=== PATIENT | female | born 1935 ===

== ENCOUNTER 2017-04-21 11:13 | Day surgery (SDC) | payer MEDICARE, OTHER ==
[2017-04-20 09:28] VITALS: BMI 28.9
[2017-04-21] MEDS ORDERED: Iodixanol 320 MG/ML 200 ML BOTTLE IV ONE (12:31)
[2017-04-21] MEDS ORDERED: Iodixanol 320 MG/ML 100 ML BOTTLE IV ONE (12:31)
[2017-04-21] MEDS ORDERED: Propofol 10 mg/ml Inj (20 ML) ONE (12:33)
[2017-04-21] MEDS ORDERED: Lidocaine 2% Inj (20ml) ONE (12:43)
[2017-04-21] MEDS ORDERED: Midazolam 2 MG/2 ML VIAL ONE (13:26)
--- NOTE | 2017-04-21 14:08 | PCM.SURG1 ---
Surgeon's Initial Post Op Note - Surgeon's Notes Surgeon: kun Platform Engineer: 0 Type of Anesthesia: IV Sedation Anesthesia Administered By: anna Pre-Operative Diagnosis: rest pain left foot Operative Findings: 90% stenosis at left knee joint on left runoff via PT and peroneal, AT occluded on left. 90% stenosis right knee joont ,. major runoff via peroneal. pt diseased at origin on right. perclose right groin Post-Operative Diagnosis: same Operation Performed: aortofemoral angiogram via right groin with seklective catherization of left femoral artery. pathway atherectomy of popliteal artery. balloon angioplasty of popliteal using 3.5 and 4 mm dcb Specimen/Specimens Removed: 0 Estimated Blood Loss: EBL {In ML}: 15 Blood Products Given: N/A Drains Used: No Drains Post-Op Condition: Good Date of Surgery/Procedure: 04/21/17 Time of Surgery/Procedure: 14:09
[2017-04-21 17:23] VITALS: BP 143/60; PULSE 61; RESP 19; TEMP 97.5; O2SAT 100
--- NOTE | 2017-04-22 04:31 | OP ---
PROCEDURE DATE: 04/21/2017 PREOPERATIVE DIAGNOSIS: Rest pain in the foot. PROCEDURE CARRIED OUT: Aortofemoral angiogram via right groin with selective catheterization of left femoral artery, pathway atherectomy of the left popliteal artery and balloon angioplasty using 4-mm drug-coated balloon. SURGEON: Erasmo Mallory Jr., MD MANAGER MARKET RESEARCH: None. ANESTHESIOLOGIST: Mr. Craig and ____. TYPE OF ANESTHESIA: Local with sedation. FINDINGS: The patient is an 81-year-old woman with increasing pain in the legs. OPERATIVE FINDINGS: The aorta, renal arteries, common iliac arteries, external iliac arteries, and common femoral arteries were free of significant occlusive disease. The profunda femoris and superficial femoral arteries were widely patent. The proximal portion of the superficial femoral arteries down to the knees were widely patent. On the right side, there are 2 areas of stenosis below Chandrakant's canal behind the knee including critical aortic stenosis behind the knee. Subsequent to this, the posterior tibial artery was severely diseased and it is most proximal portion of the peroneal artery appeared to be the major vessel into the foot. Detailed picture of the foot were not taken on the right side. On the left side, there was a high-grade 90 plus percent stenosis of the popliteal artery just above the knee joint and below this, there was atherosclerotic changes. The anterior tibial artery was occluded soon after its origin. The posterior tibial continued all the way to the foot and peroneal artery dissipated in its distal third. After the films were taken with overlapping views extending into the pelvis, a stiff-angled guidewire was advanced through the aortic bifurcation and 7-Nepali sheath position in the distal portion of the superficial femoral artery. Using road-mapping techniques with the use of an 0.14 wire, the lesion was crossed, this was subsequently exchanged for a bare-metal wire. After the patient was heparinized, a pathway atherectomy device was then used to create a bigger channel. After this has been done on the dilator with 3.5 and then subsequently with a 4 mm drug-coated balloon with excellent cosmetic results. Completion of the films revealed patency of the posterior tibial to the ankle and good flow throughout the segment. There was no change in the findings of the peroneal or of the anterior tibial artery. Subsequently, the catheter was removed from the groin and the procedure was terminated after deployment of Perclose device on the right side. So, the operation carried out: 1. Aortofemoral angiogram with selective catheterization of left femoral artery. 2. Pathway atherectomy of the left popliteal artery and then balloon angioplasty using 4 mm drug-coated balloon of the popliteal artery. Erasmo Mallory Jr., MD cc: Celestino Arrieta DO
== END 2017-04-21 17:15 | disposition home or self-care (01) ==
LOC: C.CATHLAB 11:13 → C.SPRAD 11:13 → C.CATHLAB 17:15
PROVIDERS: ATTEND Surgery Vascular Surgery
DX: I77.1 Stricture of artery (principal); I70.222 Atherosclerosis of native arteries of extremities with rest pain, left leg
CPT/HCPCS: 36247; 37227; 75625; 75716; 75774; 94770; C1724; C1760; C1766; C1769; C1884; C1887; C1894; C2623; J1644; J2250; J2704; J3010; Q9966; Q9967

== ENCOUNTER 2017-05-27 06:11 | Day surgery (SDC) | payer MEDICARE, OTHER ==
[2017-04-20 09:22] VITALS: BMI 28.9
[2017-05-27] MEDS ORDERED: Propofol 10 mg/ml Inj (20 ML) ONE ×2 (09:06→10:19)
[2017-05-27] MEDS ORDERED: Midazolam 2 MG/2 ML VIAL ONE ×2 (09:12→09:40)
[2017-05-27] MEDS ORDERED: Iodixanol 320 MG/ML 200 ML BOTTLE IV ONE (09:23)
[2017-05-27] MEDS ORDERED: Iodixanol 320 MG/ML 100 ML BOTTLE IV ONE ×2 (09:24→10:41)
[2017-05-27] MEDS ORDERED: Lidocaine 2% Inj (20ml) ONE (09:27)
[2017-05-27] MEDS ORDERED: Nitroglycerin 50mg in D5W 50 MG/250 ML BOTTLE IV ONE (10:37)
--- NOTE | 2017-05-27 10:57 | PCM.SURG1 ---
Surgeon's Initial Post Op Note - Surgeon's Notes Surgeon: Mohamud Selector Packer: Alexander PGY1 Type of Anesthesia: IV Sedation Pre-Operative Diagnosis: Peripheral Artery Disease Operative Findings: see operative report Post-Operative Diagnosis: Peripheral Artery Disease Operation Performed: Aortoillial Angiogram with bilateral run-off, selective catheterization of Right femoral artery, pathway arthrectomy of distal SFA/ proximal popliteal artery, pathway arthrectomy and angioplasty of distal peroneal artery Specimen/Specimens Removed: N/A Estimated Blood Loss: EBL {In ML}: 20 Blood Products Given: N/A Drains Used: No Drains Post-Op Condition: Good Date of Surgery/Procedure: 05/27/17 Time of Surgery/Procedure: 10:55
[2017-05-27] MEDS ORDERED: Oxycodone/Acetaminophen 5/325 mg Tab PO PRN (10:58)
[2017-05-27] MEDS ORDERED: Sodium Chloride 0.9% 1,000 ML IV ONE (12:08)
[2017-05-27 13:49] VITALS: BP 144/46; PULSE 61; RESP 16; TEMP 97.3; O2SAT 97
--- NOTE | 2017-05-28 04:57 | VAS ---
DATE: 05/27/2017 PREOPERATIVE DIAGNOSIS: Claudication, right leg. POSTOPERATIVE DIAGNOSIS: Claudication, right leg. PROCEDURE CARRIED OUT: Aortofemoral angiogram via left groin with selective catheterization of right femoral artery, pathway atherectomy of the right popliteal artery and peroneal artery with balloon angioplasty including use of a drug-coated balloon on the popliteal artery. SURGEON: Erasmo Mallory Jr., MD SUSTAINABILITY COMMUNICATOR: None. ANESTHESIOLOGIST: Dr. Craig. ANESTHESIA: Local sedation. INDICATIONS: The patient is an elderly women with claudication in right leg, previously had a left leg treated with atherectomy with an angioplasty. OPERATIVE FINDINGS: The aorta, renal arteries, common internal, external iliac arteries were widely patent without any occlusive disease. Both common femoral, superficial femoral, profunda femoris in the proximal portions of the superficial femoral arteries were widely patent. Just above the knee joint, the patient had a high-grade stenosis of 90% in the popliteal artery, on the right side. On the left side, which appears and we treated there was excellent flow and that area showed no evidence residual or recurrent stenosis. Below this on the left side, there was good flow into the foot via the tibioperoneal trunk and main vessels. We did not obtain views of the foot on the left side. On the right side, the peroneal artery was the main vessel into the foot. The posterior tibial artery was diseased at its origin. The anterior tibial artery occluded soon after its origin and now reconstituted distally. On the right leg, which was the affected leg, the peroneal artery as they said was the main vessel into the foot, the posterior tibial artery reconstituted distally and it was present in the foot. Subsequent to the performance of the diagnostic arteriogram, a stiff-angled Glidewire was advanced over the aortic bifurcation and a 7-Azeri sheath positioned in the distal portion of the superficial femoral artery crossed, subsequently exchanged for a heparin was given, the atherectomy device was used to place on it. Distal SFA popliteal lesion and then we also treated with placing down the tibial peroneal trunk. This initially resulted is some spasm in the vessels which we treated with a 2.5 mm balloon and then the more proximal lesion which was a significant lesion that was treated with a 4 and then a 5 mm drug-coated balloon. The final cosmetic results were excellent with good flow and brisk flow into the foot. The peroneal was the major vessel and widely open. OPERATION CARRIED OUT: 1. Aortofemoral angiogram with selective catheterization of the right femoral artery. 2. Pathway atherectomy of the distal SFA proximal popliteal artery and pathway atherectomy and balloon angioplasty of the peroneal artery. A Perclose device was then deployed in the left groin. Erasmo Mallory Jr., MD
== END 2017-05-27 13:46 | disposition home or self-care (01) ==
LOC: C.SPRAD 06:11
PROVIDERS: ATTEND Surgery Vascular Surgery
DX: I73.9 Peripheral vascular disease, unspecified (principal)
CPT/HCPCS: 36247; 37225; 37229; 75625; 75716; 75774; 94770; C1724; C1725; C1760; C1766; C1769; C1887; C2623; J1644; J2250; J2704; J3010; J7040; Q9966; Q9967

== ENCOUNTER 2017-10-06 13:15 | Inpatient (IN) | payer MEDICARE, OTHER ==
[2017-10-06 14:34] VITALS: BMI 28.3
--- NOTE | 2017-10-06 16:42 | C.PDOC ---
History Of Present Illness 82-year-old female, PMHx includes Peripheral vascular disease and hypertension, presents to the emergency department accompanied by pluck trimmer with complaints of pain to right foot worsening x1 week. Patient being treated by art librarian Dr Banuelos for toe infection and foot pain, and was placed on Augmentin by art librarian. Patient was seen in office and pain has increased resulting in her being sent to the ED for evaluation. Patient is pending CT in one week. Has a Hx of stents in B/L extremities. Cj numbness/weakness, nausea/vomiting, fevers, chills, chest pain or shortness of breath. No other complaints at this time. Time Seen by Provider: 10/06/17 15:54 Chief Complaint (Nursing): Lower Extremity Problem/Injury History Per: Patient History/Exam Limitations: no limitations Onset/Duration Of Symptoms: Days Current Symptoms Are (Timing): Still Present Past Medical History Reviewed: Historical Data, Nursing Documentation, Vital Signs Vital Signs: Last Vital Signs Temp 97.9 F 10/06/17 18:10 Pulse 81 10/06/17 18:10 Resp 18 10/06/17 18:10 BP 145/77 10/06/17 18:10 Pulse Ox 98 10/06/17 18:42 - Medical History PMH: Arthritis, COPD (WORK RELATED ENVIRONMENT EXPOSURE), Fractures, Gall Bladder Disease, HTN, Osteoporosis, Peripheral Edema Denies: Chronic Kidney Disease Surgical History: Cholecystectomy, Endoscopy Family History: States: No Known Family Hx - Social History Hx Alcohol Use: No Hx Substance Use: No - Immunization History Hx Tetanus Toxoid Vaccination: No Hx Influenza Vaccination: No Hx Pneumococcal Vaccination: No Review Of Systems Constitutional: Negative for: Fever, Chills Cardiovascular: Negative for: Chest Pain Respiratory: Negative for: Shortness of Breath Gastrointestinal: Negative for: Vomiting Musculoskeletal: Positive for: Foot Pain (right) Neurological: Negative for: Weakness, Numbness Physical Exam - Physical Exam Appears: Non-toxic, No Acute Distress Skin: Dry, No Rash Head: Atraumatic, Normacephalic Eye(s): bilateral: Normal Inspection, PERRL Nose: Normal Oral Mucosa: Moist Lips: Normal Appearing Neck: Normal ROM Chest: Symmetrical Cardiovascular: Rhythm Regular, No Murmur Respiratory: Normal Breath Sounds, No Accessory Muscle Use Gastrointestinal/Abdominal: Soft, No Tenderness Extremity: Tenderness, Pedal Edema, No Calf Tenderness, No Deformity, Other (LLE : no pedal edema, cool to touch, pale. RLE: erythematous, cool to touch. Tender w/ abrasion to medial aspect of second digit. Mild edema to dorsum of right foot ) Pulses: Left Dorsalis Pedis: Decreased (minimally palpable), Right Dorsalis Pedis: Decreased (minimally palpable) Neurological/Psych: Oriented x3, Normal Speech, Normal Cognition ED Course And Treatment - Laboratory Results Result Diagrams: 10/06/17 17:01 10/06/17 17:01 O2 Sat by Pulse Oximetry: 98 (RA) Pulse Ox Interpretation: Normal Medical Decision Making Medical Decision Making: Plan: * CT Angio * CMP * CBC, PTT, PT * Augmentin, Heparin, Tylenol * Reassess and Disposition pt sent to ED by Dr Kasper (art librarian) for ischemic foot and consult from Dr Mallory. Dr Mallory called and will come see patient in the ED, labs ordered. 500 pm pt seen by Dr Mallory. request cta abd ileofemoral and heparin drip, ordered as requested. [address] Barrow, will admot to his service. Disposition Discussed With .: Reji Barrow Doctor Will See Patient In The: Hospital - Disposition Disposition: HOSPITALIZED Disposition Time: 17:17 Condition: SERIOUS - Clinical Impression Clinical Impression: Ischemia of right lower extremity, Infected abrasion of toe of right foot - Scribe Statement The provider has reviewed the documentation as recorded by the Scribe (Lisa Mccormack) All medical record entries made by the Scribe were at my direction and personally dictated by me. I have reviewed the chart and agree that the record accurately reflects my personal performance of the history, physical exam, medical decision making, and the department course for this patient. I have also personally directed, reviewed, and agree with the discharge instructions and disposition.
[2017-10-06] MEDS ORDERED: Heparin25000 units/250ml 1/2NS 25,000 UNITS/250 ML BAG IV PRN (16:55)
[2017-10-06 17:06] LABS: BASO # 0.1 K/uL (0.0-0.2); BASO % 0.7 % (0.0-2.0); EOS # 0.2 K/uL (0.0-0.7); EOS % 1.3 % (0.0-4.0); HEMOGLOBIN 12.1 g/dL (11.0-16.0); LYMPH # 1.6 K/uL (1.0-4.3); MEAN CELL VOLUME 93.6 fL (81.0-99.0); MEAN CORPUSCULAR HEMOGLOBIN 31.5 pg (27.0-31.0); MEAN CORPUSCULAR HGB CONC 33.6 g/dL (33.0-37.0); MEAN PLATELET VOLUME 9.2 fL (7.2-11.7); MONO # 0.8 K/uL (0.0-0.8); MONO % 6.8 % (0.0-10.0); NEUT # 9.5 K/uL (1.8-7.0); NEUT % 78.2 % (50.0-75.0); NRBC % 0.1 % (0.0-2.0); RBC 3.84 Mil/uL (3.80-5.20); RED CELL DISTRIBUTION WIDTH 14.3 % (11.5-14.5)
[2017-10-06 17:13] LABS: WHITE BLOOD COUNT 12.1 K/uL (4.8-10.8)
[2017-10-06] MEDS ORDERED: Amoxicillin-Clav 875-125 mg Tab PO STA (17:14)
[2017-10-06 17:20] LABS: INR 1.1; PROTHROMBIN TIME 12.5 SECONDS (9.7-12.2)
[2017-10-06 17:21] LABS: ALB/GLOB RATIO 1.2 (1.0-2.1); ALBUMIN 3.5 g/dL (3.5-5.0); ALT/SGPT 33 U/L (9-52); AST/SGOT 18 U/L (14-36); BLOOD UREA NITROGEN 14 mg/dL (7-17); CALCIUM 8.6 mg/dl (8.6-10.4); GFR AFRICAN-AMERICAN > 60; GFR NON-AFRICAN AMERICAN > 60
[2017-10-06] MEDS ORDERED: Amoxicillin-Clav 875-125 mg Tab PO ONE (17:50)
--- NOTE | 2017-10-06 18:17 | CP.PCM.HP ---
<Len Aldana - Last Filed: 10/06/17 19:36> History of Present Illness - History of Present Illness History of Present Illness: PGY-1 H&P for Dr. Barrow CC: Right leg pain This is an 82 year old female with PMHx PVD, HTN, arthritis, Raynoud's phenomenon who presents complaining of right leg pain. Patient sent by her setter helper Dr. Tye Kasper for evaluation of right first and second toe infection and right popliteal occlusion. Patient states that the leg pain has been ongoing for one week. Pain is described as severe, non radiating. It is worsened with walking and relieved with rest. Patient received antibiotics from her setter helper and has been taking it for about 4 days. PMHx: PVD, HTN, arthritis, Raynaud's phenomenon PSHx: On 04/21/17, arthrectomy of left popliteal artery with balloon angioplasty. On 05/27/17, had arthrectomy of right distal SFA/proximal popliteal artery and angioplasty of distal peroneal artery. Tubal ligation, cholecystectomy, Soft tissue mass excision from back, cataract surgery Allergies: NKDA Social: Denies smoking, alcohol, drug use. PMD: Dr. Vizcaino Vascular surgeon: Dr. Mallory Wildlife Biology Internship: Dr. Kasper Home meds: Ventolin BID, ASA 81, Plavix 75, Enalapril 20 mg PO daily, Lovaza 2 tabs daily, Augmentin 875/125 BID Present on Admission - Present on Admission Any Indicators Present on Admission: No Review of Systems - Constitutional Constitutional: absent: Chills, Fever - EENT Eyes: absent: Change in Vision Ears: absent: Decreased Hearing Nose/Mouth/Throat: absent: Nasal Congestion - Cardiovascular Cardiovascular: absent: Chest Pain - Respiratory Respiratory: absent: Dyspnea - Gastrointestinal Gastrointestinal: Constipation. absent: Abdominal Pain, Diarrhea, Nausea, Vomiting - Genitourinary Genitourinary: absent: Dysuria - Musculoskeletal Musculoskeletal: Other (right leg pain) - Integumentary Integumentary: Wounds (right foot) - Neurological Neurological: Dizziness (intermittent) - Psychiatric Psychiatric: Change in Appetite (appetite will vary) - Endocrine Endocrine: absent: Palpitations Past Patient History - Past Medical History & Family History Past Medical History?: Yes - Past Social History Smoking Status: Never Smoked - CARDIAC Hx Hypertension: Yes Hx Peripheral Edema: Yes - PULMONARY Hx Chronic Obstructive Pulmonary Disease (COPD): Yes (WORK RELATED ENVIRONMENT EXPOSURE) - NEUROLOGICAL Hx Neurological Disorder: Yes HX Cerebrovascular Accident: Yes Other/Comment: " NEURIOLOGIST STATES SHE HAD 3 MINI STROKES-" SOME LEFT SIDED HEAVYNESS AND FEELINGS OF COLD AT TIMES. USES CANE TO AMBULATE. - HEENT Hx HEENT Problems: Yes Hx Cataracts: Yes (BILAT.) - RENAL Hx Chronic Kidney Disease: No - ENDOCRINE/METABOLIC Hx Endocrine Disorders: No - HEMATOLOGICAL/ONCOLOGICAL Hx Blood Disorders: No - INTEGUMENTARY Hx Dermatological Problems: Yes Other/Comment: HX: MASS UPPER BACK-NO CANCER - MUSCULOSKELETAL/RHEUMATOLOGICAL Hx Arthritis: Yes Hx Fractures: Yes Hx Osteoporosis: Yes - GASTROINTESTINAL Hx Gall Bladder Disease: Yes - GENITOURINARY/GYNECOLOGICAL Hx Genitourinary Disorders: No - PSYCHIATRIC Hx Substance Use: No - SURGICAL HISTORY Hx Cholecystectomy: Yes - ANESTHESIA Hx Anesthesia: Yes Hx Anesthesia Reactions: No Hx Malignant Hyperthermia: No Meds Allergies/Adverse Reactions: Allergies Allergy/AdvReac Type Severity Reaction Status Date / Time No Known Allergies Allergy Verified 10/06/17 14:32 Physical Exam - Constitutional Appears: No Acute Distress - Head Exam Head Exam: ATRAUMATIC, NORMOCEPHALIC - Eye Exam Eye Exam: EOMI, PERRL - ENT Exam ENT Exam: Mucous Membranes Moist - Respiratory Exam Respiratory Exam: Clear to Auscultation Bilateral, NORMAL BREATHING PATTERN. absent: Rales, Rhonchi, Wheezes - Cardiovascular Exam Cardiovascular Exam: REGULAR RHYTHM, +S1, +S2 - GI/Abdominal Exam GI & Abdominal Exam: Distended, Normal Bowel Sounds, Soft. absent: Firm, Guarding, Tenderness - Extremities Exam Additional comments: Pedal edema on right leg. Tenderness to palpation on right leg. Difficult to feel pedal pulses bilaterally. Wound on right hallux in the lateral aspect. Wound on right 2nd toe medial aspect. Feet cool to the touch bilaterally - Neurological Exam Neurological exam: Alert, CN II-XII Intact, Oriented x3 - Psychiatric Exam Psychiatric exam: Normal Affect, Normal Mood - Skin Skin Exam: Dry Results - Vital Signs Recent Vital Signs: Last Vital Signs Temp 97.9 F 10/06/17 18:10 Pulse 81 10/06/17 18:10 Resp 18 10/06/17 18:10 BP 145/77 10/06/17 18:10 Pulse Ox 99 10/06/17 18:10 - Labs Result Diagrams: 10/06/17 17:01 10/06/17 17:01 Labs: Laboratory Results - last 24 hr 10/06/17 10/06/17 10/06/17 17:01 17:01 17:01 WBC 12.1 H D RBC 3.84 Hgb 12.1 Hct 36.0 MCV 93.6 MCH 31.5 H MCHC 33.6 RDW 14.3 Plt Count 167 MPV 9.2 Neut % (Auto) 78.2 H Lymph % (Auto) 13.0 L Henderson % (Auto) 6.8 Eos % (Auto) 1.3 Baso % (Auto) 0.7 Neut # (Auto) 9.5 H Lymph # (Auto) 1.6 Henderson # (Auto) 0.8 Eos # (Auto) 0.2 Baso # (Auto) 0.1 PT 12.5 H INR 1.1 APTT 33 Sodium 136 Potassium 3.7 Chloride 99 Carbon Dioxide 28 Anion Gap 12 BUN 14 Creatinine 0.5 L Est GFR ( Amer) > 60 Est GFR (Non-Af Amer) > 60 Random Glucose 108 H Calcium 8.6 Total Bilirubin 0.5 AST 18 ALT 33 Alkaline Phosphatase 71 Total Protein 6.5 Albumin 3.5 Globulin 3.0 Albumin/Globulin Ratio 1.2 Assessment & Plan - Assessment and Plan (Free Text) Plan: Right foot wounds with Hx of PVD Vascular surgery consult with Dr. Mallory, help appreciated Since patient sent in by Dr. Kasper who does not come to this hospital, we have consulted his colleague Dr. Macias, help appreciated Heparin drip f/u CTA with femoral runoff NPO after midnight for possible intervention tomorrow Resumed home ASA 81 mg PO daily Resumed home Plavix 75 mg PO daily History of HTN Resumed home Enalapril 20 mg PO daily Prophylactic Measure NPO after midnight Heparin drip Protonix 40 mg PO daily Resumed home Ventsebastián and Lovaza Olivier Aldana PGY-1 <Reji Barrow H - Last Filed: 10/07/17 07:16> Results - Vital Signs Recent Vital Signs: Last Vital Signs Temp 98.3 F 10/07/17 00:00 Pulse 87 10/07/17 06:00 Resp 20 10/07/17 06:00 BP 137/71 10/07/17 06:00 Pulse Ox 97 10/07/17 06:00 - Labs Result Diagrams: 10/07/17 06:25 10/06/17 17:01 Labs: Laboratory Results - last 24 hr 10/06/17 10/06/17 10/06/17 17:01 17:01 17:01 WBC 12.1 H D RBC 3.84 Hgb 12.1 Hct 36.0 MCV 93.6 MCH 31.5 H MCHC 33.6 RDW 14.3 Plt Count 167 MPV 9.2 Neut % (Auto) 78.2 H Lymph % (Auto) 13.0 L Henderson % (Auto) 6.8 Eos % (Auto) 1.3 Baso % (Auto) 0.7 Neut # (Auto) 9.5 H Lymph # (Auto) 1.6 Henderson # (Auto) 0.8 Eos # (Auto) 0.2 Baso # (Auto) 0.1 PT 12.5 H INR 1.1 APTT 33 Sodium 136 Potassium 3.7 Chloride 99 Carbon Dioxide 28 Anion Gap 12 BUN 14 Creatinine 0.5 L Est GFR ( Amer) > 60 Est GFR (Non-Af Amer) > 60 Random Glucose 108 H Calcium 8.6 Total Bilirubin 0.5 AST 18 ALT 33 Alkaline Phosphatase 71 Total Protein 6.5 Albumin 3.5 Globulin 3.0 Albumin/Globulin Ratio 1.2 10/07/17 10/07/17 01:41 06:25 WBC 10.6 RBC 4.04 Hgb 13.1 Hct 37.9 MCV 93.8 MCH 32.3 H MCHC 34.5 RDW 14.6 H Plt Count 132 MPV 9.2 Neut % (Auto) 77.6 H Lymph % (Auto) 13.8 L Henderson % (Auto) 5.4 Eos % (Auto) 2.5 Baso % (Auto) 0.7 Neut # (Auto) 8.2 H Lymph # (Auto) 1.5 Henderson # (Auto) 0.6 Eos # (Auto) 0.3 Baso # (Auto) 0.1 PT INR APTT 187 H* D Sodium Potassium Chloride Carbon Dioxide Anion Gap BUN Creatinine Est GFR ( Amer) Est GFR (Non-Af Amer) Random Glucose Calcium Total Bilirubin AST ALT Alkaline Phosphatase Total Protein Albumin Globulin Albumin/Globulin Ratio Attending/Attestation - Attestation I have personally seen and examined this patient.: Yes I have fully participated in the care of the patient.: Yes I have reviewed all pertinent clinical information: Yes Notes (Text): 10/07/17 07:16 Medical attending: Patient was seen and examined by me, agree with the above note by medical editor. The patient was with the family member at bedside. The patient was okay with this. The family member helped with translation. He explained to us that this has been going on for quite some time now. In the past the patient did undergo intervention of the popliteal area the past. She was evaluated by her setter helper today and sent in. On exam, as described above in the resident note the patient does have difficult to palpate pulses. I was not able to readily find the portable Doppler in the emergency room. The foot felt cool however she was able to move her toes. She had decreased sensation she said Inspection of the feet shows that the first toe and the second toe in between that there are open wounds there. These are not deep wounds look sick the skin is She is able to walk, however the pain in the right foot is severe with walking. She's been started on a heparin drip. Is a CAT scan of the lower extremities with IV runoff that is ready been ordered.
[2017-10-06] MEDS ORDERED: Oxycodone/Acetaminophen 5/325 mg Tab PO PRN (18:22)
[2017-10-06] MEDS ORDERED: Iodixanol 320 mg/ml 150 ml Bottle IV ONE (18:26)
--- NOTE | 2017-10-06 18:35 | CP.PCM.CON ---
History of Present Illness - History of Present Illness History of Present Illness: Vascular surgery consult note for Dr. Debbie Marin, PGY-1 Pt S & E at bedside- son at bedside with history- pt mostly English speaking. 82F w/PMH sig for PVD consulted for Right hallux toe infection and Right popliteal occlusion. Reports some pain in Right foot/toe x 1 week. Pain is severe, non radiating, better with rest, worsened by pressure/walking. Pain moderately helped by Ultram at home. Pt seen recently by podiatry with recommendations for Abx- pt has been taking x 4 days; recommended hospital eval and vascular consult for ischemic right foot. Denies F & C, numbness or tingling- other complaints. In ED Leukocytosis 12.1, afebrile, imaging ordered. PMH: PVD, arthritis, Raynaud's disease PSH: Tubal ligation, cholecystectomy, popliteal bypass B/L w/grafting, Soft tissue mass excision from back, cataract sx All: NKDA SH: Deneis ETOH, tobacco or illicit drug use Outpt manager intern: Dr. Kasper Review of Systems - Review of Systems All systems: reviewed and no additional remarkable complaints except - Constitutional Constitutional: absent: Chills, Fever - EENT Eyes: absent: Change in Vision Nose/Mouth/Throat: absent: Sore Throat - Cardiovascular Cardiovascular: absent: Chest Pain - Respiratory Respiratory: absent: Cough - Gastrointestinal Gastrointestinal: absent: Abdominal Pain, Nausea, Vomiting - Genitourinary Genitourinary: absent: Change in Urinary Stream, Difficulty Urinating - Musculoskeletal Musculoskeletal: absent: Numbness, Radiating Pain into Limb, Tingling - Integumentary Integumentary: Erythema (right 1st and 2nd toes), Non-Healing Lesions - Neurological Neurological: absent: Weakness Past Patient History - Past Medical History & Family History Past Medical History?: Yes - Past Social History Smoking Status: Never Smoked - CARDIAC Hx Hypertension: Yes Hx Peripheral Edema: Yes - PULMONARY Hx Chronic Obstructive Pulmonary Disease (COPD): Yes (WORK RELATED ENVIRONMENT EXPOSURE) - NEUROLOGICAL Hx Neurological Disorder: Yes HX Cerebrovascular Accident: Yes Other/Comment: " NEURIOLOGIST STATES SHE HAD 3 MINI STROKES-" SOME LEFT SIDED HEAVYNESS AND FEELINGS OF COLD AT TIMES. USES CANE TO AMBULATE. - HEENT Hx HEENT Problems: Yes Hx Cataracts: Yes (BILAT.) - RENAL Hx Chronic Kidney Disease: No - ENDOCRINE/METABOLIC Hx Endocrine Disorders: No - HEMATOLOGICAL/ONCOLOGICAL Hx Blood Disorders: No - INTEGUMENTARY Hx Dermatological Problems: Yes Other/Comment: HX: MASS UPPER BACK-NO CANCER - MUSCULOSKELETAL/RHEUMATOLOGICAL Hx Arthritis: Yes Hx Fractures: Yes Hx Osteoporosis: Yes - GASTROINTESTINAL Hx Gall Bladder Disease: Yes - GENITOURINARY/GYNECOLOGICAL Hx Genitourinary Disorders: No - PSYCHIATRIC Hx Substance Use: No - SURGICAL HISTORY Hx Cholecystectomy: Yes - ANESTHESIA Hx Anesthesia: Yes Hx Anesthesia Reactions: No Hx Malignant Hyperthermia: No Meds Allergies/Adverse Reactions: Allergies Allergy/AdvReac Type Severity Reaction Status Date / Time No Known Allergies Allergy Verified 10/06/17 14:32 - Medications Medications: Current Medications Albuterol (Ventolin Hfa 90 Mcg/Actuation (8 G)) 2 puff IH RBID [facility] Aspirin (Ecotrin) 81 mg PO DAILY [facility] Clopidogrel Bisulfate (Plavix) 75 mg PO DAILY [facility] Enalapril Maleate (Vasotec) 20 mg PO DAILY [facility] Famotidine (Pepcid) 20 mg PO BID [facility] Heparin Sodium/Sodium Chloride (Heparin 86865 Units/250ml 1/2 Normal Saline) 25 ,000 units in 250 mls @ 12.655 mls/hr IV .[id number] PRN; Protocol; 18 UNITS/KG/HR PRN Reason: ADJUST RATE PER PROTOCOL Rpang-7-[id number] Ethyl Esters (Lovaza) 1 gm PO DAILY [facility] Oxycodone/Acetaminophen (Percocet 5/325 Mg Tab) 1 tab PO Q4H PRN PRN Reason: Pain, severe (8-10) Stop: 10/09/17 18:23 Physical Exam - Constitutional Appears: Non-toxic, No Acute Distress - Head Exam Head Exam: ATRAUMATIC, NORMAL INSPECTION, NORMOCEPHALIC - Eye Exam Eye Exam: EOMI, Normal appearance - ENT Exam ENT Exam: Mucous Membranes Moist, Normal Exam - Neck Exam Neck exam: Positive for: Full Rom, Normal Inspection - Respiratory Exam Respiratory Exam: Clear to Auscultation Bilateral, NORMAL BREATHING PATTERN - Cardiovascular Exam Cardiovascular Exam: REGULAR RHYTHM, +S1, +S2 - GI/Abdominal Exam GI & Abdominal Exam: Normal Bowel Sounds, Soft. absent: Distended - Extremities Exam Extremities exam: Positive for: tenderness (Right 1st and 2nd phalanges). Negative for: normal inspection, pedal edema Additional comments: Right foot with weak palpable DP, unable to appreciate PT. 1st and 2nd phalanges with discoloration, tenderness to palpation, superficial skin ulceration on lateral aspect. Motor intact. - Neurological Exam Neurological exam: Alert, CN II-XII Intact - Psychiatric Exam Psychiatric exam: Normal Affect, Normal Mood - Skin Skin Exam: Dry, Warm Additional comments: see extremity exam for right foot/toe findings Results - Vital Signs Recent Vital Signs: Last Vital Signs Temp 97.9 F 10/06/17 18:10 Pulse 81 10/06/17 18:10 Resp 18 10/06/17 18:10 BP 145/77 10/06/17 18:10 Pulse Ox 98 10/06/17 18:28 - Labs Result Diagrams: 10/06/17 17:01 10/06/17 17:01 Labs: Laboratory Results - last 24 hr 10/06/17 10/06/17 10/06/17 17:01 17:01 17:01 WBC 12.1 H D RBC 3.84 Hgb 12.1 Hct 36.0 MCV 93.6 MCH 31.5 H MCHC 33.6 RDW 14.3 Plt Count 167 MPV 9.2 Neut % (Auto) 78.2 H Lymph % (Auto) 13.0 L [place] % (Auto) 6.8 Eos % (Auto) 1.3 Baso % (Auto) 0.7 Neut # (Auto) 9.5 H Lymph # (Auto) 1.6 [place] # (Auto) 0.8 Eos # (Auto) 0.2 Baso # (Auto) 0.1 PT 12.5 H INR 1.1 APTT 33 Sodium 136 Potassium 3.7 Chloride 99 Carbon Dioxide 28 Anion Gap 12 BUN 14 Creatinine 0.5 L Est GFR ( Amer) > 60 Est GFR (Non-Af Amer) > 60 Random Glucose 108 H Calcium 8.6 Total Bilirubin 0.5 AST 18 ALT 33 Alkaline Phosphatase 71 Total Protein 6.5 Albumin 3.5 Globulin 3.0 Albumin/Globulin Ratio 1.2 Assessment & Plan - Assessment and Plan (Free Text) Assessment: 82F w/ischemic Right lower extremity due to popliteal occlusion, Right hallux infection Plan: Heparin drip for now FU CTA NPO Abx Pain control Possible angiography tomorrow pending imaging and availability of labor utilization superintendent DW attending Tania, PGY-1 - Date & Time Date: 10/06/17 Time: 17:35
--- NOTE | 2017-10-06 21:06 | CP.PCM.CON ---
History of Present Illness - History of Present Illness History of Present Illness: Podiatry consult Note for Dr. Mcaias 82 y.o female with PMH of Raynauld's, HTN, RA, HLD, PVD, COPD seen and evaluated at bedside for infected right hallux and 2nd digit ulcerations. Patient is seen at bedside with son during visitation. Patient reports noticing a cut 2 weeks ago in which saw her supervisor customer complaint service, Dr. Kasper. She was prescribed Augmentin 875 for 10 days and to apply triple antibiotics to the cut daily. She has been taking her abx and changing the dressing twice daily as instructed. He also reports soaking her foot daily in warm water and epsom salt. She went to see her supervisor customer complaint service today which he told her to go to the ED to get evaluated. Son reports that the toes appear worse. He reports seeing clear yellow drainage. Patient rerpots pain to the right 1st, 2nd, and 3rd toes. Describes the pain as a throbbing pain that is localized to the toes. Rates the pain 8/10. She denies n/v/sob/cp/chills or f PMH: Raynauld's, HTN, RA, HLD, PVD, COPD (worked at [employer] for over 20 years) PSH: gall bladder removal, appendectomy, tubal ligation, cataracts removal, benign tumor removal from upper back/neck, popliteal bypass B/L w/grafting MEDS: see medication list ALL: NKDA SH: denies smoking, drinking or illicit drug use FH: CHF (mother and father) Recruiter Manager: Dr. Tye Kasper Past Patient History - Past Medical History & Family History Past Medical History?: Yes - Past Social History Smoking Status: Never Smoked - CARDIAC Hx Hypertension: Yes Hx Peripheral Edema: Yes - PULMONARY Hx Chronic Obstructive Pulmonary Disease (COPD): Yes (WORK RELATED ENVIRONMENT EXPOSURE) - NEUROLOGICAL Hx Neurological Disorder: Yes HX Cerebrovascular Accident: Yes Other/Comment: " NEURIOLOGIST STATES SHE HAD 3 MINI STROKES-" SOME LEFT SIDED HEAVYNESS AND FEELINGS OF COLD AT TIMES. USES CANE TO AMBULATE. - HEENT Hx HEENT Problems: Yes Hx Cataracts: Yes (BILAT.) - RENAL Hx Chronic Kidney Disease: No - ENDOCRINE/METABOLIC Hx Endocrine Disorders: No - HEMATOLOGICAL/ONCOLOGICAL Hx Blood Disorders: No - INTEGUMENTARY Hx Dermatological Problems: Yes Other/Comment: HX: MASS UPPER BACK-NO CANCER - MUSCULOSKELETAL/RHEUMATOLOGICAL Hx Arthritis: Yes Hx Fractures: Yes Hx Osteoporosis: Yes - GASTROINTESTINAL Hx Gall Bladder Disease: Yes - GENITOURINARY/GYNECOLOGICAL Hx Genitourinary Disorders: No - PSYCHIATRIC Hx Substance Use: No - SURGICAL HISTORY Hx Cholecystectomy: Yes - ANESTHESIA Hx Anesthesia: Yes Hx Anesthesia Reactions: No Hx Malignant Hyperthermia: No Meds Allergies/Adverse Reactions: Allergies Allergy/AdvReac Type Severity Reaction Status Date / Time No Known Allergies Allergy Verified 10/06/17 14:32 - Medications Medications: Current Medications Albuterol (Ventolin Hfa 90 Mcg/Actuation (8 G)) 2 puff IH RBID [facility] Aspirin (Ecotrin) 81 mg PO DAILY [facility] Clopidogrel Bisulfate (Plavix) 75 mg PO DAILY [facility] Enalapril Maleate (Vasotec) 20 mg PO DAILY [facility] Famotidine (Pepcid) 20 mg PO BID [facility] Heparin Sodium/Sodium Chloride (Heparin 79295 Units/250ml 1/2 Normal Saline) 25 ,000 units in 250 mls @ 12.655 mls/hr IV .[id number] PRN; Protocol; 18 UNITS/KG/HR PRN Reason: ADJUST RATE PER PROTOCOL Liikv-7-Tsxa Ethyl Esters (Lovaza) 1 gm PO DAILY [facility] Oxycodone/Acetaminophen (Percocet 5/325 Mg Tab) 1 tab PO Q4H PRN PRN Reason: Pain, severe (8-10) Stop: 10/09/17 18:23 Pneumococcal Polyvalent Vaccine (Pneumovax 23 Vaccine) 0.5 ml IM .ONCE ONE Stop: 10/08/17 10:01 Physical Exam - Constitutional Appears: Well, Non-toxic, No Acute Distress - Extremities Exam Additional comments: Vasc: DP and PT nonpalpable b/l, temperature cool to cool proximal to distal, localized edema noted to the 1st and 2nd digit, CFT delayed to digits doppler- R PT weakly monophasic, R DP nondopplerable, L DP biphasic, L PT monophasic Ortho: severe pain with palpation to 1st and 2nd digit to the right, mild pain to the 3rd digit Neuro: gross and protective sensation diminished Derm: superficial ulceration noted to the lateral aspect of right hallux and medial aspect of 2nd digit. Wound base is mainly granular with no necrotic tissue noted, wound edges appear slightly macerated, no streaking, no odor, no probe to bone, no fluctanance, no abscess noted 1st and 2nd digit appears erythematous and discolored in nature No ingrown toenails appreciated to the hallux or right 2nd digit - Neurological Exam Neurological exam: Alert, Oriented x3 - Psychiatric Exam Psychiatric exam: Normal Affect, Normal Mood Results - Vital Signs Recent Vital Signs: Last Vital Signs Temp 98.3 F 10/06/17 19:10 Pulse 99 H 10/06/17 19:10 Resp 20 10/06/17 19:10 BP 133/65 10/06/17 19:10 Pulse Ox 98 10/06/17 19:10 - Labs Result Diagrams: 10/06/17 17:01 10/06/17 17:01 Labs: Laboratory Results - last 24 hr 10/06/17 10/06/17 10/06/17 17:01 17:01 17:01 WBC 12.1 H D RBC 3.84 Hgb 12.1 Hct 36.0 MCV 93.6 MCH 31.5 H MCHC 33.6 RDW 14.3 Plt Count 167 MPV 9.2 Neut % (Auto) 78.2 H Lymph % (Auto) 13.0 L [place] % (Auto) 6.8 Eos % (Auto) 1.3 Baso % (Auto) 0.7 Neut # (Auto) 9.5 H Lymph # (Auto) 1.6 [place] # (Auto) 0.8 Eos # (Auto) 0.2 Baso # (Auto) 0.1 PT 12.5 H INR 1.1 APTT 33 Sodium 136 Potassium 3.7 Chloride 99 Carbon Dioxide 28 Anion Gap 12 BUN 14 Creatinine 0.5 L Est GFR ( Amer) > 60 Est GFR (Non-Af Amer) > 60 Random Glucose 108 H Calcium 8.6 Total Bilirubin 0.5 AST 18 ALT 33 Alkaline Phosphatase 71 Total Protein 6.5 Albumin 3.5 Globulin 3.0 Albumin/Globulin Ratio 1.2 Assessment & Plan - Assessment and Plan (Free Text) Assessment: 82 y.o female with PMH of Raynauld's, HTN, RA, HLD, PVD, COPD seen for infected nonhealing right hallux and 2nd digit ulceration likely secondary to PVD Plan: Patient examined and evaluated Discussed plan in detail with attending Dr. Macias (afebrile, leukocytosis WBC= 12.1) Received Augmentin 875mg PO in ED Started patient on Cefazolin Ulceration cleansed with saline solution, dressed with dsd and ligia Wound culture taken - pending results Ordered bacitracin for ulceration- to be changed daily Vascular surgery consulted- Dr. Malolry -pt to go for possible angiogram tomorrow Ordered X-ray to r/o OM Will continue to follow while in house Thank you for the consult.
[2017-10-06] MEDS ORDERED: ceFAZolin 1 GM in Sodium Chloride 0.9% 100 ML IVPB SCH (23:00)
[2017-10-07] MEDS: ceFAZolin 1 GM in Sodium Chloride 0.9% 100 ML IVPB SCH ×3 (00:45→17:00)
[2017-10-07] MEDS ORDERED: Heparin25000 units/250ml 1/2NS 25,000 UNITS/250 ML BAG IV PRN ×2 (03:15→11:00)
[2017-10-07 06:30] LABS: BASO # 0.1 K/uL (0.0-0.2); BASO % 0.7 % (0.0-2.0); EOS # 0.3 K/uL (0.0-0.7); EOS % 2.5 % (0.0-4.0); HEMOGLOBIN 13.1 g/dL (11.0-16.0); LYMPH # 1.5 K/uL (1.0-4.3); LYMPH % 13.8 % (20.0-40.0); MEAN CELL VOLUME 93.8 fL (81.0-99.0); MEAN CORPUSCULAR HEMOGLOBIN 32.3 pg (27.0-31.0); MEAN CORPUSCULAR HGB CONC 34.5 g/dL (33.0-37.0); MEAN PLATELET VOLUME 9.2 fL (7.2-11.7); MONO # 0.6 K/uL (0.0-0.8); MONO % 5.4 % (0.0-10.0); NEUT # 8.2 K/uL (1.8-7.0); NEUT % 77.6 % (50.0-75.0); RBC 4.04 Mil/uL (3.80-5.20); RED CELL DISTRIBUTION WIDTH 14.6 % (11.5-14.5); WHITE BLOOD COUNT 10.6 K/uL (4.8-10.8)
--- NOTE | 2017-10-07 07:23 | CP.PCM.PN ---
<Len Aldana - Last Filed: 10/07/17 13:13> Subjective - Date & Time of Evaluation Date of Evaluation: 10/07/17 Time of Evaluation: 09:10 - Subjective Subjective: Medicine progress note for Dr. Barrow Patient seen and examined. Patient reports continued leg throbbing. She did not get her pain medication until just prior to rounds. Patient denies fever, chills , chest pain, dyspnea, abdominal pain, dysuria. Objective - Vital Signs/Intake and Output Vital Signs (last 24 hours): Temp Pulse Resp BP Pulse Ox 98.3 F 87 20 137/71 97 10/07/17 00:00 10/07/17 06:00 10/07/17 06:00 10/07/17 06:00 10/07/17 06:00 Intake and Output: 10/07/17 10/07/17 06:59 18:59 Intake Total 429.8 Balance 429.8 - Medications Medications: Current Medications Albuterol (Ventolin Hfa 90 Mcg/Actuation (8 G)) 2 puff IH RBID [facility] Aspirin (Ecotrin) 81 mg PO DAILY [facility] Bacitracin (Bacitracin) 1 ea TOP DAILY [facility] Clonazepam (Klonopin) 0.5 mg PO HS [facility] Last Admin: 10/06/17 22:09 Dose: 0.5 mg Clopidogrel Bisulfate (Plavix) 75 mg PO DAILY [facility] Enalapril Maleate (Vasotec) 20 mg PO DAILY [facility] Famotidine (Pepcid) 20 mg PO BID [facility] Cefazolin Sodium 1 gm/ Sodium (Chloride) 100 mls @ 100 mls/hr IVPB Q8H [facility] Last Admin: 10/07/17 00:45 Dose: 100 mls/hr Heparin Sodium/Sodium Chloride (Heparin 60286 Units/250ml 1/2 Normal Saline) 25 ,000 units in 250 mls @ 10.546 mls/hr IV .[id number] PRN; Protocol; 15 UNITS/KG/HR PRN Reason: ADJUST RATE PER PROTOCOL Last Admin: 10/07/17 03:15 Dose: 15 units/kg/hr, 10.546 mls/hr [id number]-[id number] Ethyl Esters (Lovaza) 1 gm PO DAILY [facility] Oxycodone/Acetaminophen (Percocet 5/325 Mg Tab) 1 tab PO Q4H PRN PRN Reason: Pain, severe (8-10) Stop: 10/09/17 18:23 Pneumococcal Polyvalent Vaccine (Pneumovax 23 Vaccine) 0.5 ml IM .ONCE ONE Stop: 10/08/17 10:01 - Labs Labs: 10/07/17 06:25 10/06/17 17:01 PT 12.5 SECONDS (9.7-12.2) H 10/06/17 17:01 INR 1.1 10/06/17 17:01 APTT 187 SECONDS (21-34) H* D 10/07/17 01:41 - Additional Findings Additional findings: - Constitutional Appears: No Acute Distress - Head Exam Head Exam: ATRAUMATIC, NORMOCEPHALIC - Eye Exam Eye Exam: EOMI, PERRL - ENT Exam ENT Exam: Mucous Membranes Moist - Respiratory Exam Respiratory Exam: Clear to Auscultation Bilateral, NORMAL BREATHING PATTERN. absent: Rales, Rhonchi, Wheezes - Cardiovascular Exam Cardiovascular Exam: REGULAR RHYTHM, +S1, +S2 - GI/Abdominal Exam GI & Abdominal Exam: Distended, Normal Bowel Sounds, Soft. absent: Firm, Guarding, Tenderness - Extremities Exam Additional comments: Pedal edema on right leg. Tenderness to palpation on right leg. Difficult to feel pedal pulses bilaterally. Wound on right hallux in the lateral aspect. Wound on right 2nd toe medial aspect. Feet cool to the touch bilaterally - Neurological Exam Neurological exam: Alert, CN II-XII Intact, Oriented x3 - Psychiatric Exam Psychiatric exam: Normal Affect, Normal Mood - Skin Skin Exam: Dry Assessment and Plan - Assessment and Plan (Free Text) Plan: Right foot wounds with Hx of PVD Vascular surgery consult with Dr. Mallory, help appreciated Since patient sent in by Dr. Kasper who does not come to this hospital, we have consulted his colleague Dr. Macias, help appreciated Heparin drip--to be held at 6AM on 10/08/17 per surgical team f/u CTA with femoral runoff NPO after midnight Resumed home ASA 81 mg PO daily Resumed home Plavix 75 mg PO daily f/u wound cultures ordered by podiatry Podiatry started Ancef 1 gm Q8H Percocet 5/325 1 tab Q4 prn pain History of HTN Resumed home Enalapril 20 mg PO daily Prophylactic Measure NPO after midnight Heparin drip Protonix 40 mg PO daily Resumed home Ventolin and Lovaza Disposition: Patient NPO after midnight except medications for intervention tomorrow. Heparin drip set to be held at 6 AM per surgery recommendation. Case DW Dr. Pushpa Aldana PGY-1 <Reji Barrow H - Last Filed: 10/07/17 15:03> Objective - Vital Signs/Intake and Output Vital Signs (last 24 hours): Temp Pulse Resp BP Pulse Ox 98.7 F 71 20 147/73 96 10/07/17 07:48 10/07/17 07:48 10/07/17 07:48 10/07/17 09:42 10/07/17 07:48 Intake and Output: 10/07/17 10/07/17 06:59 18:59 Intake Total 429.8 516.8 Balance 429.8 516.8 - Medications Medications: Current Medications Albuterol (Ventolin Hfa 90 Mcg/Actuation (8 G)) 2 puff IH RBID [facility] Last Admin: 10/07/17 07:51 Dose: Not Given Aspirin (Ecotrin) 81 mg PO DAILY [facility] Last Admin: 10/07/17 09:42 Dose: 81 mg Bacitracin (Bacitracin) 1 ea TOP DAILY [facility] Last Admin: 10/07/17 09:42 Dose: Not Given Clonazepam (Klonopin) 0.5 mg PO HS [facility] Last Admin: 10/06/17 22:09 Dose: 0.5 mg Clopidogrel Bisulfate (Plavix) 75 mg PO DAILY [facility] Last Admin: 10/07/17 09:56 Dose: 75 mg Enalapril Maleate (Vasotec) 20 mg PO DAILY [facility] Last Admin: 10/07/17 09:42 Dose: 20 mg Famotidine (Pepcid) 20 mg PO BID [facility] Last Admin: 10/07/17 09:40 Dose: 20 mg Cefazolin Sodium 1 gm/ Sodium (Chloride) 100 mls @ 100 mls/hr IVPB Q8H [facility] Last Admin: 10/07/17 08:49 Dose: 100 mls/hr Heparin Sodium/Sodium Chloride (Heparin 42835 Units/250ml 1/2 Normal Saline) 25 ,000 units in 250 mls @ 8.437 mls/hr IV .Q24H PRN; Protocol; 12 UNITS/KG/HR PRN Reason: ADJUST RATE PER PROTOCOL Last Admin: 10/07/17 11:54 Dose: 12 units/kg/hr, 8.437 mls/hr Ketorolac Tromethamine (Toradol) 15 mg IVP Q8 PRN PRN Reason: Pain, severe (8-10) Last Admin: 10/07/17 14:02 Dose: 15 mg Loiea-1-Vvkb Ethyl Esters (Lovaza) 1 gm PO DAILY [facility] Last Admin: 10/07/17 09:41 Dose: 1 gm Oxycodone/Acetaminophen (Percocet 5/325 Mg Tab) 1 tab PO Q4H PRN PRN Reason: Pain, moderate (4-7) Stop: 10/09/17 18:23 Pneumococcal Polyvalent Vaccine (Pneumovax 23 Vaccine) 0.5 ml IM .ONCE ONE Stop: 10/08/17 10:01 - Labs Labs: 10/07/17 06:25 10/07/17 06:25 PT 12.5 SECONDS (9.7-12.2) H 10/06/17 17:01 INR 1.1 10/06/17 17:01 APTT 124 SECONDS (21-34) H* D 10/07/17 09:54 Attending/Attestation - Attestation I have personally seen and examined this patient.: Yes I have fully participated in the care of the patient.: Yes I have reviewed all pertinent clinical information, including history, physical exam and plan: Yes Notes (Text): 10/07/17 15:03 Medical attending: Patient was seen and examined by me, agree with the above note by manager medical writing. Patient was with family member when we saw her today. Earlier she had the CT scan with femoral runoff she was still on heparin drip when we saw her, this heparin drips can be held for tomorrow. She's can be nothing by mouth after midnight The patient remains on IV cefazolin at this moment. X-rays of the foot were done and these did not show signs of osteomyelitis Thank you so much, Reji Barrow
[2017-10-07 07:30] LABS: ALB/GLOB RATIO 1.2 (1.0-2.1); ALBUMIN 3.2 g/dL (3.5-5.0); ALT/SGPT 19 U/L (9-52); AST/SGOT 20 U/L (14-36); BLOOD UREA NITROGEN 9 mg/dL (7-17); CALCIUM 8.4 mg/dl (8.6-10.4); GFR AFRICAN-AMERICAN > 60; GFR NON-AFRICAN AMERICAN > 60; MAGNESIUM 2.1 mg/dL (1.6-2.3)
[2017-10-07] MEDS: Albuterol HFA 90 mcg/actuation (8 g) IH SCH ×2 (07:51→19:11)
--- NOTE | 2017-10-07 09:17 | CP.PCM.PN ---
Subjective - Date & Time of Evaluation Date of Evaluation: 10/07/17 Time of Evaluation: 07:00 - Subjective Subjective: Vascular Surgery Pt S&E, NAEO. Planning for Angiogram on , No new complaints. Objective - Vital Signs/Intake and Output Vital Signs (last 24 hours): Temp Pulse Resp BP Pulse Ox 98.7 F 71 20 147/73 96 10/07/17 07:48 10/07/17 07:48 10/07/17 07:48 10/07/17 07:48 10/07/17 07:48 Intake and Output: 10/07/17 10/07/17 06:59 18:59 Intake Total 429.8 Balance 429.8 - Medications Medications: Current Medications Albuterol (Ventolin Hfa 90 Mcg/Actuation (8 G)) 2 puff IH RBID [facility] Last Admin: 10/07/17 07:51 Dose: Not Given Aspirin (Ecotrin) 81 mg PO DAILY [facility] Bacitracin (Bacitracin) 1 ea TOP DAILY [facility] Clonazepam (Klonopin) 0.5 mg PO HS [facility] Last Admin: 10/06/17 22:09 Dose: 0.5 mg Clopidogrel Bisulfate (Plavix) 75 mg PO DAILY [facility] Enalapril Maleate (Vasotec) 20 mg PO DAILY [facility] Famotidine (Pepcid) 20 mg PO BID [facility] Cefazolin Sodium 1 gm/ Sodium (Chloride) 100 mls @ 100 mls/hr IVPB Q8H [facility] Last Admin: 10/07/17 08:49 Dose: 100 mls/hr Heparin Sodium/Sodium Chloride (Heparin 44963 Units/250ml 1/2 Normal Saline) 25 ,000 units in 250 mls @ 10.546 mls/hr IV .[id number] PRN; Protocol; 15 UNITS/KG/HR PRN Reason: ADJUST RATE PER PROTOCOL Last Admin: 10/07/17 03:15 Dose: 15 units/kg/hr, 10.546 mls/hr [id number] Ethyl Esters (Lovaza) 1 gm PO DAILY [facility] Oxycodone/Acetaminophen (Percocet 5/325 Mg Tab) 1 tab PO Q4H PRN PRN Reason: Pain, severe (8-10) Stop: 10/09/17 18:23 Pneumococcal Polyvalent Vaccine (Pneumovax 23 Vaccine) 0.5 ml IM .ONCE ONE Stop: 10/08/17 10:01 - Labs Labs: 10/07/17 06:25 10/07/17 06:25 PT 12.5 SECONDS (9.7-12.2) H 10/06/17 17:01 INR 1.1 10/06/17 17:01 APTT 187 SECONDS (21-34) H* D 10/07/17 01:41 - Constitutional Appears: Non-toxic, No Acute Distress - Head Exam Head Exam: ATRAUMATIC, NORMOCEPHALIC - Respiratory Exam Respiratory Exam: NORMAL BREATHING PATTERN. absent: Respiratory Distress - GI/Abdominal Exam GI & Abdominal Exam: Soft. absent: Distended, Tenderness - Extremities Exam Additional comments: Right foot with weak palpable DP. 1st and 2nd phalanges painful with discoloration, tenderness to palpation, superficial skin ulceration on lateral aspect. - Neurological Exam Neurological Exam: Alert, Awake - Skin Skin Exam: Dry, Warm Assessment and Plan - Assessment and Plan (Free Text) Assessment: 82F w/ischemic Right lower extremity due to popliteal occlusion, Right hallux infection Plan: Continue Heparin gtt Abx Pain control Angiography tomorrow NPO p [place] D/W Dr. Mohamud Dewitt PGY4
[2017-10-07] MEDS: Omega-3-Acid Ethyl Esters 1 GM Cap PO SCH (09:41)
[2017-10-07] MEDS: Bacitracin 500 Units/gm Oint Foilpak UD TOP SCH (09:42)
[2017-10-07] MEDS ORDERED: Potassium Chloride 20 mEq/15 ml LIQ UD PO ONE (10:00)
--- NOTE | 2017-10-07 11:11 | RAD ---
PROCEDURE: Right Foot Radiographs. HISTORY: r/o right foot OM COMPARISON: None. FINDINGS: BONES: No acute fracture. JOINTS: Joint spaces and articular surfaces preserved. Flexion deformity of the 2nd through 5th digits. Plantar calcaneal spur noted. SOFT TISSUES: Normal. OTHER FINDINGS: None. IMPRESSION: No plain radiographic evidence of osteomyelitis.
--- NOTE | 2017-10-07 14:20 | CT ---
PROCEDURE: CT Angiography Abdomen, Pelvis and Lower Extremity with Contrast HISTORY: right popliteal occlusion COMPARISON: None. TECHNIQUE: Technique: CT angiography of the abdomen, pelvis and bilateral lower extremities performed in the arterial phase of enhancement. Coronal and sagittal reformats, and well as rotating MIP images of the vessels generated at the workstation. Intravenous contrast dose: 150 MILLILITERS VISIPAQUE 320 Radiation dose: Total exam DLP = 2142.98 MGy-cm. This CT exam was performed using one or more of the following dose reduction techniques: Automated exposure control, adjustment of the mA and/or kV according to patient size, and/or use of iterative reconstruction technique. FINDINGS: CT ANGIOGRAPHY: ABDOMINAL AORTA:: UNREMARKABLE MAJOR AORTIC BRANCHES: Celiac [place]: Unremarkable. 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 Inferior mesenteric artery: Unremarkable. Renal arteries: Unremarkable. PELVIC ARTERIES: Right Common Iliac: Unremarkable. Right External Iliac: Unremarkable. Right Internal Iliac: Unremarkable. Left Common Iliac: Unremarkable. Left External Iliac: Unremarkable. Left Internal Iliac: Unremarkable. RIGHT LOWER EXTREMITY ARTERIES: Right Common Femoral: Unremarkable. Right Superficial Femoral: Short segment area of mild stenosis within the proximal and distal SFA. Right Profunda Femoris: Unremarkable. Right Popliteal:Occlusion of the popliteal artery at the mid segment with no reconstitution. Right Anterior Tibial: Approximates the tibial is patent. There is moderate calcific plaque in the proximal anterior tibial artery with possible occlusion of that level. Mid anterior tibial artery reconstitutes and remains patent. . Right Tibioperoneal Trunk: No flow. Right Posterior Tibial: Some flow seen within proximal posterior tibial are. The mid and distal posterior tibial artery patent and fills via collaterals. Right Peroneal: Fills via collateral in the proximal segment remains patent. Right dorsalis pedis : Unremarkable. LEFT LOWER EXTREMITY ARTERIES: Left Common Femoral: Unremarkable. Left Superficial Femoral: Unremarkable. Left Profunda Femoris: Unremarkable. Left Popliteal: Unremarkable. Left Anterior Tibial: Unremarkable. Left Tibioperoneal Trunk: Unremarkable. Left Posterior Tibial: Unremarkable. Left Peronea: Unremarkable. Left Dorsalis pedis: Unremarkable. NON-ANGIOGRAPHIC ASPECT OF THE EXAM: LOWER THORAX: Unremarkable. LIVER: Unremarkable. No gross lesion or ductal dilatation. GALLBLADDER AND BILE DUCTS: Unremarkable. PANCREAS: 11 millimeter cystic lesion within the tail of the pancreas. SPLEEN: Unremarkable. ADRENALS: Unremarkable. No mass. KIDNEYS AND URETERS: Unremarkable. No hydronephrosis. No solid mass. STOMACH AND BOWEL: Unremarkable. No obstruction. No gross mural thickening. APPENDIX: Normal appendix. PERITONEUM: Unremarkable. No free fluid. No free air. LYMPH NODES: Unremarkable. No enlarged lymph nodes. BLADDER: Unremarkable. REPRODUCTIVE: Unremarkable. BONES: No acute fracture. OTHER FINDINGS: None. IMPRESSION: A. CT ANGIOGRAM ABDOMEN/PELVIS: 1. Unremarkable CT angiogram of the abdomen and pelvis. 2. Severe calcific plaque at the origin of the SMA with [id number] stenosis per B. RIGHT LOWER EXTREMITY CT ANGIOGRAM: 1. Mild stenosis of the proximal SFA and also distal SFA. 2. Occlusion of popliteal artery with no reconstitution. 3. Tibial vessels shows patent anterior tibial artery. The peroneal and posterior tibial artery patent and fills via collaterals. C. LEFT LOWER EXTREMITY CT ANGIOGRAM: 1. Unremarkable CT angiogram of left lower extremity. D. NON-VASCULAR FINDINGS: 11 millimeters cystic lesion within the tail of the pancreas.
--- NOTE | 2017-10-07 17:02 | CP.PCM.PN ---
Subjective - Date & Time of Evaluation Date of Evaluation: 10/07/17 Time of Evaluation: 17:01 - Subjective Subjective: right pooliteal occlusion will have angio in am dc heparin Objective - Vital Signs/Intake and Output Vital Signs (last 24 hours): Temp Pulse Resp BP Pulse Ox 98.6 F 67 20 118/63 95 10/07/17 15:58 10/07/17 15:58 10/07/17 15:58 10/07/17 15:58 10/07/17 15:58 Intake and Output: 10/07/17 10/07/17 06:59 18:59 Intake Total 429.8 516.8 Balance 429.8 516.8 - Medications Medications: Current Medications Albuterol (Ventolin Hfa 90 Mcg/Actuation (8 G)) 2 puff IH RBID [facility] Last Admin: 10/07/17 07:51 Dose: Not Given Aspirin (Ecotrin) 81 mg PO DAILY [facility] Last Admin: 10/07/17 09:42 Dose: 81 mg Bacitracin (Bacitracin) 1 ea TOP DAILY [facility] Last Admin: 10/07/17 09:42 Dose: Not Given Clonazepam (Klonopin) 0.5 mg PO HS [facility] Last Admin: 10/06/17 22:09 Dose: 0.5 mg Clopidogrel Bisulfate (Plavix) 75 mg PO DAILY [facility] Last Admin: 10/07/17 09:56 Dose: 75 mg Enalapril Maleate (Vasotec) 20 mg PO DAILY [facility] Last Admin: 10/07/17 09:42 Dose: 20 mg Famotidine (Pepcid) 20 mg PO BID [facility] Last Admin: 10/07/17 09:40 Dose: 20 mg Cefazolin Sodium 1 gm/ Sodium (Chloride) 100 mls @ 100 mls/hr IVPB Q8H [facility] Last Admin: 10/07/17 08:49 Dose: 100 mls/hr Heparin Sodium/Sodium Chloride (Heparin 84700 Units/250ml 1/2 Normal Saline) 25 ,000 units in 250 mls @ 8.437 mls/hr IV .Q24H PRN; Protocol; 12 UNITS/KG/HR PRN Reason: ADJUST RATE PER PROTOCOL Last Admin: 10/07/17 11:54 Dose: 12 units/kg/hr, 8.437 mls/hr Ketorolac Tromethamine (Toradol) 15 mg IVP Q8 PRN PRN Reason: Pain, severe (8-10) Last Admin: 10/07/17 14:02 Dose: 15 mg Gwtyi-2-Ijkv Ethyl Esters (Lovaza) 1 gm PO DAILY [facility] Last Admin: 10/07/17 09:41 Dose: 1 gm Oxycodone/Acetaminophen (Percocet 5/325 Mg Tab) 1 tab PO Q4H PRN PRN Reason: Pain, moderate (4-7) Stop: 10/09/17 18:23 Pneumococcal Polyvalent Vaccine (Pneumovax 23 Vaccine) 0.5 ml IM .ONCE ONE Stop: 10/08/17 10:01 - Labs Labs: 10/07/17 06:25 10/07/17 06:25 PT 12.5 SECONDS (9.7-12.2) H 10/06/17 17:01 INR 1.1 10/06/17 17:01 APTT 124 SECONDS (21-34) H* D 10/07/17 09:54
[2017-10-07] MEDS: Oxycodone/Acetaminophen 5/325 mg Tab PO PRN ×2 (18:56→22:20)
--- NOTE | 2017-10-07 20:49 | CP.PCM.PN ---
Subjective - Date & Time of Evaluation Date of Evaluation: 10/07/17 Time of Evaluation: 12:15 - Subjective Subjective: Podiatry consult Note for Dr. Macias 82 y.o female seen at bedside for infected right hallux and 2nd digit ulcerations. Patient reports 2/10 throbbing pain to the right 1st, 2nd, and 3rd toes, well controlled by pain medication . She denies n/v/sob/cp/chills or f. Pt has no acute overnight events. Objective - Vital Signs/Intake and Output Vital Signs (last 24 hours): Temp Pulse Resp BP Pulse Ox 98.6 F 67 20 118/63 95 10/07/17 15:58 10/07/17 15:58 10/07/17 15:58 10/07/17 15:58 10/07/17 15:58 Intake and Output: 10/07/17 10/08/17 18:59 06:59 Intake Total 516.8 Balance 516.8 - Medications Medications: Current Medications Albuterol (Ventolin Hfa 90 Mcg/Actuation (8 G)) 2 puff IH RBID [facility] Last Admin: 10/07/17 19:11 Dose: Not Given Aspirin (Ecotrin) 81 mg PO DAILY [facility] Last Admin: 10/07/17 09:42 Dose: 81 mg Bacitracin (Bacitracin) 1 ea TOP DAILY [facility] Last Admin: 10/07/17 09:42 Dose: Not Given Clonazepam (Klonopin) 0.5 mg PO HS [facility] Last Admin: 10/06/17 22:09 Dose: 0.5 mg Clopidogrel Bisulfate (Plavix) 75 mg PO DAILY [facility] Last Admin: 10/07/17 09:56 Dose: 75 mg Enalapril Maleate (Vasotec) 20 mg PO DAILY [facility] Last Admin: 10/07/17 09:42 Dose: 20 mg Famotidine (Pepcid) 20 mg PO BID [facility] Last Admin: 10/07/17 18:58 Dose: 20 mg Cefazolin Sodium 1 gm/ Sodium (Chloride) 100 mls @ 100 mls/hr IVPB Q8H [facility] Last Admin: 10/07/17 17:00 Dose: 100 mls/hr Ketorolac Tromethamine (Toradol) 15 mg IVP Q8 PRN PRN Reason: Pain, severe (8-10) Last Admin: 10/07/17 14:02 Dose: 15 mg Ardxw-4-Mllv Ethyl Esters (Lovaza) 1 gm PO DAILY [facility] Last Admin: 10/07/17 09:41 Dose: 1 gm Oxycodone/Acetaminophen (Percocet 5/325 Mg Tab) 1 tab PO Q4H PRN PRN Reason: Pain, moderate (4-7) Stop: 10/09/17 18:23 Last Admin: 10/07/17 18:56 Dose: 1 tab Pneumococcal Polyvalent Vaccine (Pneumovax 23 Vaccine) 0.5 ml IM .ONCE ONE Stop: 10/08/17 10:01 - Labs Labs: 10/07/17 06:25 10/07/17 06:25 PT 12.5 SECONDS (9.7-12.2) H 10/06/17 17:01 INR 1.1 10/06/17 17:01 APTT 32 SECONDS (21-34) D 10/07/17 19:40 - Constitutional Appears: Well, Non-toxic, No Acute Distress - Extremities Exam Additional comments: Vasc: DP and PT nonpalpable b/l, temperature cool to cool proximal to distal, localized edema noted to the 1st and 2nd digit, CFT delayed to digits Ortho: severe pain with palpation to 1st and 2nd digit to the right, mild pain to the 3rd digit Neuro: gross and protective sensation diminished Derm: superficial ulceration noted to the lateral aspect of right hallux and medial aspect of 2nd digit. Wound base is mainly granular with no necrotic tissue noted, wound edges appear slightly macerated, no streaking, no odor, no probe to bone, no fluctanance, no abscess noted 1st and 2nd digit appears erythematous and discolored in nature No ingrown toenails appreciated to the hallux or right 2nd digit - Neurological Exam Neurological Exam: Alert, Awake, Oriented x3 - Psychiatric Exam Psychiatric exam: Normal Affect, Normal Mood Assessment and Plan - Assessment and Plan (Free Text) Assessment: 82 y/o female with infected non-healing right hallux and 2nd digit ulceration likely secondary to PVD Plan: Patient examined and evaluated. Discussed plan in detail with attending Dr. Macias. Chart, labs, and vitals, afebrile,absent leukocytosis WBC=10.6. Continue IV abx- Cefepime. Ulceration cleansed with saline solution, dressed with bacitracin, dsd and ligia Wound culture taken - pending results Vascular surgery, Dr. Mallory, -angiogram tomorrow to evaluate right popliteal occlusion X-ray: negative for OM Will continue to follow while in house
[2017-10-08] MEDS: ceFAZolin 1 GM in Sodium Chloride 0.9% 100 ML IVPB SCH ×3 (01:09→18:22)
--- NOTE | 2017-10-08 07:32 | CP.PCM.PN ---
<Len Aldana - Last Filed: 10/08/17 19:00> Subjective - Date & Time of Evaluation Date of Evaluation: 10/08/17 Time of Evaluation: 09:00 - Subjective Subjective: Medicine progress note for Dr. Barrow Patient seen and examined. Patient reports improvement in pain this morning after starting Toradol. Patient states that she feels well this morning and has no complaints at this time. Patient is for angiogram later this morning. After the procedure today, the patient is in excruciating pain despite current pain regimen. Objective - Vital Signs/Intake and Output Vital Signs (last 24 hours): Temp Pulse Resp BP Pulse Ox 98.2 F 71 20 110/73 96 10/08/17 00:06 10/08/17 00:06 10/08/17 00:06 10/08/17 00:06 10/08/17 00:06 Intake and Output: 10/08/17 10/08/17 06:59 18:59 Intake Total 440 Balance 440 - Medications Medications: Current Medications Albuterol (Ventolin Hfa 90 Mcg/Actuation (8 G)) 2 puff IH RBID [facility] Last Admin: 10/07/17 19:11 Dose: Not Given Aspirin (Ecotrin) 81 mg PO DAILY [facility] Last Admin: 10/07/17 09:42 Dose: 81 mg Bacitracin (Bacitracin) 1 ea TOP DAILY [facility] Last Admin: 10/07/17 09:42 Dose: Not Given Clonazepam (Klonopin) 0.5 mg PO HS [facility] Last Admin: 10/07/17 21:30 Dose: 0.5 mg Clopidogrel Bisulfate (Plavix) 75 mg PO DAILY [facility] Last Admin: 10/07/17 09:56 Dose: 75 mg Enalapril Maleate (Vasotec) 20 mg PO DAILY [facility] Last Admin: 10/07/17 09:42 Dose: 20 mg Famotidine (Pepcid) 20 mg PO BID [facility] Last Admin: 10/07/17 18:58 Dose: 20 mg Cefazolin Sodium 1 gm/ Sodium (Chloride) 100 mls @ 100 mls/hr IVPB Q8H [facility] Last Admin: 10/08/17 01:09 Dose: 100 mls/hr Ketorolac Tromethamine (Toradol) 15 mg IVP Q8 PRN PRN Reason: Pain, severe (8-10) Last Admin: 10/07/17 14:02 Dose: 15 mg Xcmlx-0-Yajz Ethyl Esters (Lovaza) 1 gm PO DAILY [facility] Last Admin: 10/07/17 09:41 Dose: 1 gm Oxycodone/Acetaminophen (Percocet 5/325 Mg Tab) 1 tab PO Q4H PRN PRN Reason: Pain, moderate (4-7) Stop: 10/09/17 18:23 Last Admin: 10/07/17 22:20 Dose: 1 tab Pneumococcal Polyvalent Vaccine (Pneumovax 23 Vaccine) 0.5 ml IM .ONCE ONE Stop: 10/08/17 10:01 - Labs Labs: 10/07/17 06:25 10/07/17 06:25 PT 12.5 SECONDS (9.7-12.2) H 10/06/17 17:01 INR 1.1 10/06/17 17:01 APTT 32 SECONDS (21-34) D 10/07/17 19:40 - Additional Findings Additional findings: - Constitutional Appears: No Acute Distress - Head Exam Head Exam: ATRAUMATIC, NORMOCEPHALIC - Eye Exam Eye Exam: EOMI, PERRL - ENT Exam ENT Exam: Mucous Membranes Moist - Respiratory Exam Respiratory Exam: Clear to Auscultation Bilateral, NORMAL BREATHING PATTERN. absent: Rales, Rhonchi, Wheezes - Cardiovascular Exam Cardiovascular Exam: REGULAR RHYTHM, +S1, +S2 - GI/Abdominal Exam GI & Abdominal Exam: Distended, Normal Bowel Sounds, Soft. absent: Firm, Guarding, Tenderness - Extremities Exam Additional comments: Pedal edema on right leg. Tenderness to palpation on right leg. Difficult to feel pedal pulses bilaterally. Wound on right hallux in the lateral aspect. Wound on right 2nd toe medial aspect. Feet cool to the touch bilaterally - Neurological Exam Neurological exam: Alert, CN II-XII Intact, Oriented x3 - Psychiatric Exam Psychiatric exam: Normal Affect, Normal Mood - Skin Skin Exam: Dry Assessment and Plan - Assessment and Plan (Free Text) Plan: Right foot wounds with Hx of PVD Vascular surgery consult with Dr. Mallory, help appreciated Since patient sent in by Dr. Kasper who does not come to this hospital, we have consulted his colleague Dr. 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 Resumed home ASA 81 mg PO daily Resumed home Plavix 75 mg PO daily f/u wound cultures ordered by podiatry Podiatry started Ancef 1 gm Q8H Morphine 4 mg IV Q6 prn pain Toradol 15 mg IV Q8 prn pain Per surgical team, unable to perform balloon angioplasty, will need a femoral- popliteal bypass and require cardiac clearance Combination Welder Dr. López consulted, help appreciated Echo and Lexiscan stress test ordered. NPO after midnight for stress test History of HTN Resumed home Enalapril 20 mg PO daily Prophylactic Measure NPO after midnight Protonix 40 mg PO daily Resumed home Ventolin and Lovaza Heparin 5000 units SC Q8H Case DW Dr. Pushpa Aldana PGY-1 <Reji Barrow H - Last Filed: 10/09/17 07:48> Objective - Vital Signs/Intake and Output Vital Signs (last 24 hours): Temp Pulse Resp BP Pulse Ox 98 F 73 20 137/68 96 10/09/17 00:00 10/09/17 00:00 10/09/17 00:00 10/09/17 00:00 10/09/17 00:00 Intake and Output: 10/09/17 10/09/17 06:59 18:59 Intake Total 300 Balance 300 - Medications Medications: Current Medications Albuterol (Ventolin Hfa 90 Mcg/Actuation (8 G)) 2 puff IH RBID [facility] Last Admin: 10/09/17 07:30 Dose: Not Given Aspirin (Ecotrin) 81 mg PO DAILY [facility] Last Admin: 10/08/17 11:00 Dose: Not Given Bacitracin (Bacitracin) 1 ea TOP DAILY [facility] Last Admin: 10/08/17 11:00 Dose: Not Given Clonazepam (Klonopin) 0.5 mg PO HS [facility] Last Admin: 10/08/17 21:34 Dose: 0.5 mg Clopidogrel Bisulfate (Plavix) 75 mg PO DAILY [facility] Last Admin: 10/08/17 11:00 Dose: Not Given Enalapril Maleate (Vasotec) 20 mg PO DAILY [facility] Last Admin: 10/08/17 11:00 Dose: Not Given Famotidine (Pepcid) 20 mg PO BID [facility] Last Admin: 10/08/17 18:24 Dose: 20 mg Heparin Sodium (Porcine) (Heparin) 5,000 units SC Q8 [facility] Last Admin: 10/09/17 05:28 Dose: 5,000 units Cefazolin Sodium 1 gm/ Sodium (Chloride) 100 mls @ 100 mls/hr IVPB Q8H [facility] Last Admin: 10/09/17 00:54 Dose: 100 mls/hr Ketorolac Tromethamine (Toradol) 15 mg IVP Q8 PRN PRN Reason: Pain, moderate (4-7) Last Admin: 10/08/17 21:42 Dose: 15 mg Morphine Sulfate (Morphine) 4 mg IV Q6H PRN PRN Reason: Pain, severe (8-10) [id number] Ethyl Esters (Lovaza) 1 gm PO DAILY [facility] Last Admin: 10/08/17 11:00 Dose: Not Given - Labs Labs: 10/09/17 06:37 10/09/17 06:37 PT 12.5 SECONDS (9.7-12.2) H 10/06/17 17:01 INR 1.1 10/06/17 17:01 APTT 32 SECONDS (21-34) D 10/07/17 19:40 Attending/Attestation - Attestation I have personally seen and examined this patient.: Yes I have fully participated in the care of the patient.: Yes I have reviewed all pertinent clinical information, including history, physical exam and plan: Yes Notes (Text): 10/09/17 07:48 Medical attending: Patient was seen and examined by me, I saw the patient with the medical lab technician in the emergency room. I reviewed the above note and agree with the above note by the resident. The patient was seen and examined earlier in the morning before vascular study. During the morning time we met the patient's family member we discussed. Later on during the day I was informed by vascular surgery that it was not possible that a balloon stenting was not possible to the popliteal area. But that she would be a candidate for a femoral-popliteal bypass surgery. As for surgery asked that there be cardiac clearance be done. Cardiology has been notified, she's can get a Lexiscan, and echo for further evaluation thank you Reji Barrow
[2017-10-08] MEDS: Albuterol HFA 90 mcg/actuation (8 g) IH SCH ×2 (07:53→19:59)
[2017-10-08 08:43] LABS: ALBUMIN 3.4 g/dL (3.5-5.0); ALT/SGPT < 6 U/L (9-52); AST/SGOT 55 U/L (14-36); BLOOD UREA NITROGEN 12 mg/dL (7-17); CALCIUM 8.4 mg/dl (8.6-10.4); GFR AFRICAN-AMERICAN > 60; GFR NON-AFRICAN AMERICAN > 60; MAGNESIUM 2.2 mg/dL (1.6-2.3)
[2017-10-08] MEDS ORDERED: Midazolam 2 MG/2 ML VIAL ONE ×2 (09:38→11:05)
[2017-10-08] MEDS ORDERED: Influenza Vaccine 60 mcg/0.5 mL SYR (4YR UP) IM ONE (10:00)
[2017-10-08] MEDS ORDERED: Pneumococcal 23-Valent Vaccine IM ONE (10:00)
[2017-10-08] MEDS ORDERED: Lidocaine 2% Inj (20ml) ONE (10:21)
[2017-10-08] MEDS: Bacitracin 500 Units/gm Oint Foilpak UD TOP SCH (11:00)
[2017-10-08] MEDS: Omega-3-Acid Ethyl Esters 1 GM Cap PO SCH (11:00)
--- NOTE | 2017-10-08 11:44 | PCM.SURG1 ---
Surgeon's Initial Post Op Note - Surgeon's Notes Surgeon: kun Mushroom Press Operator: 0 Type of Anesthesia: IV Sedation Anesthesia Administered By: tia Pre-Operative Diagnosis: ischemic foot ulcer right Operative Findings: see dictation. severe. tibial disease. politeal occludes at knee. posterior tibial continues to foot Post-Operative Diagnosis: same Operation Performed: aortofemoral angio. selective catherization of right femoral artery. no intervention. perclose left Specimen/Specimens Removed: 0 Estimated Blood Loss: EBL {In ML}: 20 Blood Products Given: N/A Drains Used: No Drains Post-Op Condition: Good Date of Surgery/Procedure: 10/08/17 Time of Surgery/Procedure: 11:44
[2017-10-08 14:47] LABS: BASO # 0.1 K/uL (0.0-0.2); BASO % 0.6 % (0.0-2.0); EOS # 0.2 K/uL (0.0-0.7); EOS % 2.8 % (0.0-4.0); HEMOGLOBIN 12.9 g/dL (11.0-16.0); LYMPH # 1.6 K/uL (1.0-4.3); LYMPH % 18.8 % (20.0-40.0); MEAN CELL VOLUME 95.1 fL (81.0-99.0); MEAN CORPUSCULAR HEMOGLOBIN 32.3 pg (27.0-31.0); MEAN PLATELET VOLUME 9.6 fL (7.2-11.7); MONO # 0.6 K/uL (0.0-0.8); MONO % 6.9 % (0.0-10.0); NEUT # 6.2 K/uL (1.8-7.0); NEUT % 70.9 % (50.0-75.0); RBC 3.99 Mil/uL (3.80-5.20); RED CELL DISTRIBUTION WIDTH 14.5 % (11.5-14.5); WHITE BLOOD COUNT 8.7 K/uL (4.8-10.8)
[2017-10-08] MEDS ORDERED: Morphine 4 MG/ML VIAL IV PRN (15:04)
--- NOTE | 2017-10-08 23:09 | CP.PCM.CON ---
History of Present Illness - History of Present Illness History of Present Illness: Patient seen and evaluated Will do stress test and ECHO as a part of Pre Op cardiac work CC: Right leg pain This is an 82 year old female with PMHx PVD, HTN, arthritis, Raynoud's phenomenon who presents complaining of right leg pain. Patient sent by her trim machine operator Dr. Tye Kasper for evaluation of right first and second toe infection and right popliteal occlusion. Patient states that the leg pain has been ongoing for one week. Pain is described as severe, non radiating. It is worsened with walking and relieved with rest. Patient received antibiotics from her trim machine operator and has been taking it for about 4 days. PMHx: PVD, HTN, arthritis, Raynaud's phenomenon PSHx: On 04/21/17, arthrectomy of left popliteal artery with balloon angioplasty. On 05/27/17, had arthrectomy of right distal SFA/proximal popliteal artery and angioplasty of distal peroneal artery. Tubal ligation, cholecystectomy, Soft tissue mass excision from back, cataract surgery Allergies: NKDA Social: Denies smoking, alcohol, drug use. PMD: Dr. Vizcaino Vascular surgeon: Dr. Mallory Head Doffer: Dr. Kasper Home meds: Ventolin BID, ASA 81, Plavix 75, Enalapril 20 mg PO daily, Lovaza 2 tabs daily, Augmentin 875/125 BID Present on Admission - Present on Admission Any Indicators Present on Admission: No Review of Systems - Constitutional Constitutional: absent: Chills, Fever - EENT Eyes: absent: Change in Vision Ears: absent: Decreased Hearing Nose/Mouth/Throat: absent: Nasal Congestion - Cardiovascular Cardiovascular: absent: Chest Pain - Respiratory Respiratory: absent: Dyspnea - Gastrointestinal Gastrointestinal: Constipation. absent: Abdominal Pain, Diarrhea, Nausea, Vomiting - Genitourinary Genitourinary: absent: Dysuria - Musculoskeletal Musculoskeletal: Other (right leg pain) - Integumentary Integumentary: Wounds (right foot) - Neurological Neurological: Dizziness (intermittent) - Psychiatric Psychiatric: Change in Appetite (appetite will vary) - Endocrine Endocrine: absent: Palpitations Physical Exam - Constitutional Appears: No Acute Distress - Head Exam Head Exam: ATRAUMATIC, NORMOCEPHALIC - Eye Exam Eye Exam: EOMI, PERRL - ENT Exam ENT Exam: Mucous Membranes Moist - Respiratory Exam Respiratory Exam: Clear to Auscultation Bilateral, NORMAL BREATHING PATTERN. absent: Rales, Rhonchi, Wheezes - Cardiovascular Exam Cardiovascular Exam: REGULAR RHYTHM, +S1, +S2 - GI/Abdominal Exam GI & Abdominal Exam: Distended, Normal Bowel Sounds, Soft. absent: Firm, Guarding, Tenderness - Extremities Exam Additional comments: Pedal edema on right leg. Tenderness to palpation on right leg. Difficult to feel pedal pulses bilaterally. Wound on right hallux in the lateral aspect. Wound on right 2nd toe medial aspect. 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 USES CANE TO AMBULATE. - HEENT Hx HEENT Problems: Yes Hx Cataracts: Yes (BILAT.) - RENAL Hx Chronic Kidney Disease: No - ENDOCRINE/METABOLIC Hx Endocrine Disorders: No - HEMATOLOGICAL/ONCOLOGICAL Hx Blood Disorders: No - INTEGUMENTARY Hx Dermatological Problems: Yes Other/Comment: HX: MASS UPPER BACK-NO CANCER - MUSCULOSKELETAL/RHEUMATOLOGICAL Hx Arthritis: Yes Hx Fractures: Yes Hx Osteoporosis: Yes - GASTROINTESTINAL Hx Gall Bladder Disease: Yes - GENITOURINARY/GYNECOLOGICAL Hx Genitourinary Disorders: No - PSYCHIATRIC Hx Substance Use: No - SURGICAL HISTORY Hx Cholecystectomy: Yes - ANESTHESIA Hx Anesthesia: Yes Hx Anesthesia Reactions: No Hx Malignant Hyperthermia: No Meds Allergies/Adverse Reactions: Allergies Allergy/AdvReac Type Severity Reaction Status Date / Time No Known Allergies Allergy Verified 10/06/17 14:32 - Medications Medications: Current Medications Albuterol (Ventolin Hfa 90 Mcg/Actuation (8 G)) 2 puff IH RBID [facility] Last Admin: 10/08/17 19:59 Dose: Not Given Aspirin (Ecotrin) 81 mg PO DAILY [facility] Last Admin: 10/08/17 11:00 Dose: Not Given Bacitracin (Bacitracin) 1 ea TOP DAILY [facility] Last Admin: 10/08/17 11:00 Dose: Not Given Clonazepam (Klonopin) 0.5 mg PO HS [facility] Last Admin: 10/08/17 21:34 Dose: 0.5 mg Clopidogrel Bisulfate (Plavix) 75 mg PO DAILY [facility] Last Admin: 10/08/17 11:00 Dose: Not Given Enalapril Maleate (Vasotec) 20 mg PO DAILY [facility] Last Admin: 10/08/17 11:00 Dose: Not Given Famotidine (Pepcid) 20 mg PO BID [facility] Last Admin: 10/08/17 18:24 Dose: 20 mg Heparin Sodium (Porcine) (Heparin) 5,000 units SC Q8 [facility] Last Admin: 10/08/17 21:34 Dose: 5,000 units Cefazolin Sodium 1 gm/ Sodium (Chloride) 100 mls @ 100 mls/hr IVPB Q8H [facility] Last Admin: 10/08/17 18:22 Dose: 100 mls/hr Ketorolac Tromethamine (Toradol) 15 mg IVP Q8 PRN PRN Reason: Pain, moderate (4-7) Last Admin: 10/08/17 21:42 Dose: 15 mg Morphine Sulfate (Morphine) 4 mg IV Q6H PRN PRN Reason: Pain, severe (8-10) Khout-4-Skue Ethyl Esters (Lovaza) 1 gm PO DAILY [facility] Last Admin: 10/08/17 11:00 Dose: Not Given Results - Vital Signs Recent Vital Signs: Last Vital Signs Temp 97.6 F 10/08/17 18:00 Pulse 80 10/08/17 18:00 Resp 20 10/08/17 18:00 BP 131/69 10/08/17 18:00 Pulse Ox 98 10/08/17 18:00 - Labs Result Diagrams: 10/11/17 08:18 10/11/17 08:18 Labs: Laboratory Results - last 24 hr 10/08/17 10/08/17 08:09 14:39 WBC 8.7 RBC 3.99 Hgb 12.9 Hct 38.0 MCV 95.1 MCH 32.3 H MCHC 34.0 RDW 14.5 Plt Count 138 MPV 9.6 Neut % (Auto) 70.9 Lymph % (Auto) 18.8 L Glasscock % (Auto) 6.9 Eos % (Auto) 2.8 Baso % (Auto) 0.6 Neut # (Auto) 6.2 Lymph # (Auto) 1.6 Glasscock # (Auto) 0.6 Eos # (Auto) 0.2 Baso # (Auto) 0.1 Sodium 137 Potassium 5.1 Chloride 106 Carbon Dioxide 22 Anion Gap 15 BUN 12 Creatinine 0.5 L Est GFR ( Amer) > 60 Est GFR (Non-Af Amer) > 60 Random Glucose 90 Calcium 8.4 L Magnesium 2.2 Total Bilirubin 1.1 AST 55 H D ALT < 6 L D Alkaline Phosphatase 64 Total Protein 6.8 Albumin 3.4 L Globulin 3.3 Albumin/Globulin Ratio 1.0 Assessment & Plan - Assessment and Plan (Free Text) Assessment: Assessment and Plan - Assessment and Plan (Free Text) Plan: Right foot wounds with Hx of PVD Vascular surgery consult with Dr. Mallory CTA with femoral runoff: Right Popliteal artery occlusion. Mild stenosis of right proximal and distal SFA. Resumed home ASA 81 mg PO daily Resumed home Plavix 75 mg PO daily f/u wound cultures ordered by podiatry Podiatry started Ancef 1 gm Q8H Morphine 4 mg IV Q6 prn pain Toradol 15 mg IV Q8 prn pain Per surgical team, unable to perform balloon angioplasty, will need a femoral- popliteal bypass and require cardiac clearance Echo and Lexiscan stress test ordered. NPO after midnight for stress test History of HTN Resumed home Enalapril 20 mg PO daily Prophylactic Measure NPO after midnight Protonix 40 mg PO daily Resumed home Ventolin and Lovaza Heparin 5000 units SC Q8H
[2017-10-09] MEDS: ceFAZolin 1 GM in Sodium Chloride 0.9% 100 ML IVPB SCH (00:54)
--- NOTE | 2017-10-09 06:35 | CARD ---
APPROVED REPORT EXAM: Two-dimensional and M-mode echocardiogram with Doppler and color Doppler. Other Information Quality : GoodRhythm : INDICATION Pre-Op Infection: RISK FACTORS Hypertension 2D DIMENSIONS IVSd1.5 (0.7-1.1cm)LVDd3.1 (3.9-5.9cm) PWd1.4 (0.7-1.1cm)LVDs2.2 (2.5-4.0cm) FS (%) 30.3 %LVEF (%)59.2 (>50%) M-Mode DIMENSIONS Left Atrium (MM)4.15 (2.5-4.0cm)Aortic Root3.29 (2.2-3.7cm) Aortic Cusp Exc.2.18 (1.5-2.0cm) Aortic Valve AI P 1/2 [id number] Mitral Valve MV E Bsdmtbxi59.2cm/sMV A Cfqscygj51.3cm/sE/A ratio0.6 TDI E/Lateral E'0.0E/Medial E'0.0 Tricuspid Valve TR Peak [id number]/sTR Peak Gr.[id number] LEFT VENTRICLE The left ventricle is normal size. There is mild to moderate concentric left ventricular hypertrophy. Left ventricle systolic function is normal. The Ejection Fraction is 55-60%. There is normal LV segmental wall motion. Tissue Doppler imaging reveals abnormal left ventricular diastolic dysfunction. RIGHT VENTRICLE The right ventricle is normal size. There is normal right ventricular wall thickness. The right ventricular systolic function is normal. ATRIA The left atrium is mildly dilated. The right atrium size is normal. The interatrial septum is intact with no evidence for an atrial septal defect. AORTIC VALVE The aortic valve is normal in structure. There is mild aortic regurgitation. There is no aortic valvular stenosis. There is no aortic valvular vegetation. MITRAL VALVE The mitral valve is normal in structure. There is no evidence of mitral valve prolapse. There is no mitral valve stenosis. Mitral regurgitation is mild. TRICUSPID VALVE The tricuspid valve is normal in structure. There is mild to moderate tricuspid regurgitation. Right ventricular systolic pressure is estimated at 40-50 mmHg. There is mild-moderate pulmonary hypertension. PULMONIC VALVE The pulmonic valve is not well visualized. There is no pulmonic valvular regurgitation. GREAT VESSELS The aortic root is normal in size. PERICARDIAL EFFUSION There is no significant pericardial effusion. <Conclusion> Left ventricle systolic function is normal. The Ejection Fraction is 55-60%. Hypertensive heart disease. Diastolic dysfunction. There is mild aortic regurgitation. Mitral regurgitation is mild. There is mild to moderate tricuspid regurgitation. There is mild-moderate pulmonary hypertension. There is no pulmonic valvular regurgitation.
[2017-10-09 07:11] LABS: BASO % 0.6 % (0.0-2.0); EOS # 0.2 K/uL (0.0-0.7); EOS % 2.7 % (0.0-4.0); HEMOGLOBIN 12.6 g/dL (11.0-16.0); LYMPH % 14.1 % (20.0-40.0); MEAN CELL VOLUME 93.4 fL (81.0-99.0); MEAN CORPUSCULAR HEMOGLOBIN 32.2 pg (27.0-31.0); MEAN CORPUSCULAR HGB CONC 34.5 g/dL (33.0-37.0); MEAN PLATELET VOLUME 9.9 fL (7.2-11.7); MONO # 0.5 K/uL (0.0-0.8); MONO % 7.1 % (0.0-10.0); NEUT # 5.2 K/uL (1.8-7.0); NEUT % 75.5 % (50.0-75.0); RBC 3.9 Mil/uL (3.80-5.20); RED CELL DISTRIBUTION WIDTH 14.3 % (11.5-14.5); WHITE BLOOD COUNT 6.9 K/uL (4.8-10.8)
[2017-10-09] MEDS: Albuterol HFA 90 mcg/actuation (8 g) IH SCH ×3 (07:30→21:55)
--- NOTE | 2017-10-09 07:37 | CP.PCM.PN ---
<Len Aldana - Last Filed: 10/09/17 18:00> Subjective - Date & Time of Evaluation Date of Evaluation: 10/09/17 Time of Evaluation: 07:40 - Subjective Subjective: Medicine progress note for Dr. Barrow Patient seen and examined. Patient reports that she is doing well today. Patient reports that she is not in much pain at this time. Patient is for Lexiscan stress test. Objective - Vital Signs/Intake and Output Vital Signs (last 24 hours): Temp Pulse Resp BP Pulse Ox 98 F 73 20 137/68 96 10/09/17 00:00 10/09/17 00:00 10/09/17 00:00 10/09/17 00:00 10/09/17 00:00 Intake and Output: 10/09/17 10/09/17 06:59 18:59 Intake Total 300 Balance 300 - Medications Medications: Current Medications Albuterol (Ventolin Hfa 90 Mcg/Actuation (8 G)) 2 puff IH RBID [facility] Last Admin: 10/09/17 07:30 Dose: Not Given Aspirin (Ecotrin) 81 mg PO DAILY [facility] Last Admin: 10/08/17 11:00 Dose: Not Given Bacitracin (Bacitracin) 1 ea TOP DAILY [facility] Last Admin: 10/08/17 11:00 Dose: Not Given Clonazepam (Klonopin) 0.5 mg PO HS [facility] Last Admin: 10/08/17 21:34 Dose: 0.5 mg Clopidogrel Bisulfate (Plavix) 75 mg PO DAILY [facility] Last Admin: 10/08/17 11:00 Dose: Not Given Enalapril Maleate (Vasotec) 20 mg PO DAILY [facility] Last Admin: 10/08/17 11:00 Dose: Not Given Famotidine (Pepcid) 20 mg PO BID [facility] Last Admin: 10/08/17 18:24 Dose: 20 mg Heparin Sodium (Porcine) (Heparin) 5,000 units SC Q8 [facility] Last Admin: 10/09/17 05:28 Dose: 5,000 units Cefazolin Sodium 1 gm/ Sodium (Chloride) 100 mls @ 100 mls/hr IVPB Q8H [facility] Last Admin: 10/09/17 00:54 Dose: 100 mls/hr Ketorolac Tromethamine (Toradol) 15 mg IVP Q8 PRN PRN Reason: Pain, moderate (4-7) Last Admin: 10/08/17 21:42 Dose: 15 mg Morphine Sulfate (Morphine) 4 mg IV Q6H PRN PRN Reason: Pain, severe (8-10) Qcbgk-[id number] Ethyl Esters (Lovaza) 1 gm PO DAILY [facility] Last Admin: 10/08/17 11:00 Dose: Not Given - Labs Labs: 10/09/17 06:37 10/08/17 08:09 PT 12.5 SECONDS (9.7-12.2) H 10/06/17 17:01 INR 1.1 10/06/17 17:01 APTT 32 SECONDS (21-34) D 10/07/17 19:40 - Additional Findings Additional findings: - Constitutional Appears: No Acute Distress - Head Exam Head Exam: ATRAUMATIC, NORMOCEPHALIC - Eye Exam Eye Exam: EOMI, PERRL - ENT Exam ENT Exam: Mucous Membranes Moist - Respiratory Exam Respiratory Exam: Clear to Auscultation Bilateral, NORMAL BREATHING PATTERN. absent: Rales, Rhonchi, Wheezes - Cardiovascular Exam Cardiovascular Exam: REGULAR RHYTHM, +S1, +S2 - GI/Abdominal Exam GI & Abdominal Exam: Distended, Normal Bowel Sounds, Soft. absent: Firm, Guarding, Tenderness - Extremities Exam Additional comments: Pedal edema on right leg. Tenderness to palpation on right leg. Difficult to feel pedal pulses bilaterally. Wound on right hallux in the lateral aspect. Wound on right 2nd toe medial aspect. Feet cool to the touch bilaterally - Neurological Exam Neurological exam: Alert, CN II-XII Intact, Oriented x3 - Psychiatric Exam Psychiatric exam: Normal Affect, Normal Mood - Skin Skin Exam: Dry Assessment and Plan - Assessment and Plan (Free Text) Plan: Right foot wounds with Hx of PVD Vascular surgery consult with Dr. Mallory, help appreciated Since patient sent in by Dr. Kasper who does not come to this hospital, we have consulted his colleague Dr. 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 Resumed home ASA 81 mg PO daily Resumed home Plavix 75 mg PO daily wound cultures ordered by podiatry grew pseudomonas Cipro 400 mg IV Q12H Morphine 4 mg IV Q6 prn pain Toradol 15 mg IV Q8 prn pain Per surgical team, unable to perform balloon angioplasty, will need a femoral- popliteal bypass and require cardiac clearance Healthcare Sales Representative Dr. López consulted, help appreciated f/u Lexiscan stress test for cardiac clearance Echo showed EF 55-60%, hypertensive heart disease, and diastolic dysfunction History of Hypertension Resumed home Enalapril 20 mg PO daily Prophylactic Measure Heart Healthy Diet Protonix 40 mg PO daily Resumed home Ventolin and Lovaza Heparin 5000 units SC Q8H Case DW Dr. Pushpa Aldana PGY-1 <Reji Barrow H - Last Filed: 10/09/17 19:13> Objective - Vital Signs/Intake and Output Vital Signs (last 24 hours): Temp Pulse Resp BP Pulse Ox 98.1 F 78 20 138/69 97 10/09/17 16:00 10/09/17 16:00 10/09/17 16:00 10/09/17 16:00 10/09/17 16:00 Intake and Output: 10/09/17 10/10/17 18:59 06:59 Intake Total 600 Balance 600 - Medications Medications: Current Medications Albuterol (Ventolin Hfa 90 Mcg/Actuation (8 G)) 2 puff IH RBID [facility] Last Admin: 10/09/17 07:30 Dose: Not Given Aspirin (Ecotrin) 81 mg PO DAILY [facility] Last Admin: 10/09/17 11:21 Dose: 81 mg Bacitracin (Bacitracin) 1 ea TOP DAILY [facility] Last Admin: 10/09/17 11:21 Dose: 1 ea Clonazepam (Klonopin) 0.5 mg PO HS [facility] Last Admin: 10/08/17 21:34 Dose: 0.5 mg Clopidogrel Bisulfate (Plavix) 75 mg PO DAILY [facility] Last Admin: 10/09/17 11:21 Dose: 75 mg Enalapril Maleate (Vasotec) 20 mg PO DAILY [facility] Last Admin: 10/09/17 11:20 Dose: 20 mg Famotidine (Pepcid) 20 mg PO BID [facility] Last Admin: 10/09/17 17:42 Dose: 20 mg Heparin Sodium (Porcine) (Heparin) 5,000 units SC Q8 [facility] Last Admin: 10/09/17 14:33 Dose: 5,000 units Ciprofloxacin (Cipro 400mg/200ml Dsw) 400 mg in 200 mls @ 133 mls/hr IVPB Q12H [facility] Ketorolac Tromethamine (Toradol) 15 mg IVP Q8 PRN PRN Reason: Pain, moderate (4-7) Last Admin: 10/09/17 11:21 Dose: 15 mg Morphine Sulfate (Morphine) 4 mg IV Q6H PRN PRN Reason: Pain, severe (8-10) Last Admin: 10/09/17 14:12 Dose: 4 mg Gzfzy-4-Shcs Ethyl Esters (Lovaza) 1 gm PO DAILY [facility] Last Admin: 10/09/17 11:22 Dose: 1 gm - Labs Labs: 10/09/17 06:37 10/09/17 06:37 PT 12.5 SECONDS (9.7-12.2) H 10/06/17 17:01 INR 1.1 10/06/17 17:01 APTT 32 SECONDS (21-34) D 10/07/17 19:40 Attending/Attestation - Attestation I have personally seen and examined this patient.: Yes I have fully participated in the care of the patient.: Yes I have reviewed all pertinent clinical information, including history, physical exam and plan: Yes Notes (Text): 10/09/17 19:13 Medical attending: Patient was seen and examined by me, I saw the patient with medical information officer. I reviewed the above note by medical information officer and agree When we saw the patient today she had just returned from the first part of her Lexiscan and was scheduled to return for the second part of the Lexiscan. Her family member was present at bedside. The patient reported that she didn't have any acute events overnight She was not in any acute distress we saw her she was in the process of eating her lunch. So at this time were currently waiting on cardiac workup for potential clearance the goal is to see if the patient benefit from a femoral-popliteal bypass. In the meantime the wound cultures of right great toe helix area as well as the second toe medial aspect grew out Pseudomonas. It is sensitive very much to Cipro so we've changed the antibiotics to this Reji Barrow
[2017-10-09 07:38] LABS: ALB/GLOB RATIO 1.3 (1.0-2.1); ALBUMIN 3.3 g/dL (3.5-5.0); ALT/SGPT 27 U/L (9-52); AST/SGOT 16 U/L (14-36); BLOOD UREA NITROGEN 12 mg/dL (7-17); CALCIUM 8.1 mg/dl (8.6-10.4); GFR AFRICAN-AMERICAN > 60; GFR NON-AFRICAN AMERICAN > 60
--- NOTE | 2017-10-09 08:00 | CP.PCM.PN ---
Subjective - Date & Time of Evaluation Date of Evaluation: 10/09/17 Time of Evaluation: 07:59 - Subjective Subjective: no good gsv for bypass Objective - Vital Signs/Intake and Output Vital Signs (last 24 hours): Temp Pulse Resp BP Pulse Ox 98.2 F 91 H 20 137/68 96 10/09/17 07:39 10/09/17 07:39 10/09/17 07:39 10/09/17 00:00 10/09/17 07:39 Intake and Output: 10/09/17 10/09/17 06:59 18:59 Intake Total 300 Balance 300 - Medications Medications: Current Medications Albuterol (Ventolin Hfa 90 Mcg/Actuation (8 G)) 2 puff IH RBID [facility] Last Admin: 10/09/17 07:30 Dose: Not Given Aspirin (Ecotrin) 81 mg PO DAILY [facility] Last Admin: 10/08/17 11:00 Dose: Not Given Bacitracin (Bacitracin) 1 ea TOP DAILY [facility] Last Admin: 10/08/17 11:00 Dose: Not Given Clonazepam (Klonopin) 0.5 mg PO HS [facility] Last Admin: 10/08/17 21:34 Dose: 0.5 mg Clopidogrel Bisulfate (Plavix) 75 mg PO DAILY [facility] Last Admin: 10/08/17 11:00 Dose: Not Given Enalapril Maleate (Vasotec) 20 mg PO DAILY [facility] Last Admin: 10/08/17 11:00 Dose: Not Given Famotidine (Pepcid) 20 mg PO BID [facility] Last Admin: 10/08/17 18:24 Dose: 20 mg Heparin Sodium (Porcine) (Heparin) 5,000 units SC Q8 [facility] Last Admin: 10/09/17 05:28 Dose: 5,000 units Ceftriaxone Sodium 1 gm/ (Sodium Chloride) 100 mls @ 100 mls/hr IVPB DAILY [facility] Ketorolac Tromethamine (Toradol) 15 mg IVP Q8 PRN PRN Reason: Pain, moderate (4-7) Last Admin: 10/08/17 21:42 Dose: 15 mg Morphine Sulfate (Morphine) 4 mg IV Q6H PRN PRN Reason: Pain, severe (8-10) Hfsov-2-Dpni Ethyl Esters (Lovaza) 1 gm PO DAILY [facility] Last Admin: 10/08/17 11:00 Dose: Not Given - Labs Labs: 02/09/18 06:37 10/09/17 06:37 PT 12.5 SECONDS (9.7-12.2) H 10/06/17 17:01 INR 1.1 10/06/17 17:01 APTT 32 SECONDS (21-34) D 10/07/17 19:40
--- NOTE | 2017-10-09 08:34 | CP.PCM.PN ---
Subjective - Date & Time of Evaluation Date of Evaluation: 10/09/17 Time of Evaluation: 06:45 - Subjective Subjective: Vascular Surgery- Dr. Mallory Patient seen and examined at bedside this AM. No acute events overnight. s/p Angio. Site of puncture C/D/I no signs of hematoma. RLE dressing wrapped c/d/i. Denies F/C/ CP/SOB/N/V/D Objective - Vital Signs/Intake and Output Vital Signs (last 24 hours): Temp Pulse Resp BP Pulse Ox 98.2 F 91 H 20 137/68 96 10/09/17 07:39 10/09/17 07:39 10/09/17 07:39 10/09/17 00:00 10/09/17 07:39 Intake and Output: 10/09/17 10/09/17 06:59 18:59 Intake Total 300 Balance 300 - Medications Medications: Current Medications Albuterol (Ventolin Hfa 90 Mcg/Actuation (8 G)) 2 puff IH RBID [facility] Last Admin: 10/09/17 07:30 Dose: Not Given Aspirin (Ecotrin) 81 mg PO DAILY [facility] Last Admin: 10/08/17 11:00 Dose: Not Given Bacitracin (Bacitracin) 1 ea TOP DAILY [facility] Last Admin: 10/08/17 11:00 Dose: Not Given Clonazepam (Klonopin) 0.5 mg PO HS [facility] Last Admin: 10/08/17 21:34 Dose: 0.5 mg Clopidogrel Bisulfate (Plavix) 75 mg PO DAILY [facility] Last Admin: 10/08/17 11:00 Dose: Not Given Enalapril Maleate (Vasotec) 20 mg PO DAILY [facility] Last Admin: 10/08/17 11:00 Dose: Not Given Famotidine (Pepcid) 20 mg PO BID [facility] Last Admin: 10/08/17 18:24 Dose: 20 mg Heparin Sodium (Porcine) (Heparin) 5,000 units SC Q8 [facility] Last Admin: 10/09/17 05:28 Dose: 5,000 units Ceftriaxone Sodium 1 gm/ (Sodium Chloride) 100 mls @ 100 mls/hr IVPB DAILY [facility] Ketorolac Tromethamine (Toradol) 15 mg IVP Q8 PRN PRN Reason: Pain, moderate (4-7) Last Admin: 10/08/17 21:42 Dose: 15 mg Morphine Sulfate (Morphine) 4 mg IV Q6H PRN PRN Reason: Pain, severe (8-10) Prhkf-4-Iuna Ethyl Esters (Lovaza) 1 gm PO DAILY [facility] Last Admin: 10/08/17 11:00 Dose: Not Given - Labs Labs: 10/09/17 06:37 10/09/17 06:37 PT 12.5 SECONDS (9.7-12.2) H 10/06/17 17:01 INR 1.1 10/06/17 17:01 APTT 32 SECONDS (21-34) D 10/07/17 19:40 - Constitutional Appears: Non-toxic, No Acute Distress - Head Exam Head Exam: ATRAUMATIC - Eye Exam Eye Exam: EOMI. absent: Scleral icterus - ENT Exam ENT Exam: Mucous Membranes Moist - Respiratory Exam Respiratory Exam: NORMAL BREATHING PATTERN. absent: Accessory Muscle Use, Respiratory Distress - Cardiovascular Exam Cardiovascular Exam: +S1, +S2. absent: Bradycardia, Tachycardia - GI/Abdominal Exam GI & Abdominal Exam: Soft. absent: Distended, Firm, Guarding, Rigid, Tenderness - Extremities Exam Extremities Exam: absent: Calf Tenderness Additional comments: RLE dressing wrapped C/D/I no stikethrough Left fem dressing site C/D/I no sign of hematoma - Neurological Exam Neurological Exam: Alert, Awake, Oriented x3 - Psychiatric Exam Psychiatric exam: Normal Affect - Skin Skin Exam: Intact, Warm Assessment and Plan - Assessment and Plan (Free Text) Assessment: 82F PVD s/p Angio POD#1 Plan: - no good GSV for bypass - plan for graft for bypass next week - HHD - continue heparin drip - further recs per Dr. Mohamud Paula PGY1
[2017-10-09] MEDS ORDERED: Aminophylline 25 mg/ml Inj ONE (08:50)
--- NOTE | 2017-10-09 09:47 | VAS ---
DATE: 10/08/2017 PREOPERATIVE DIAGNOSIS: Ischemic right foot. PROCEDURE CARRIED OUT: Aortofemoral angiogram with selective catheterization of right femoral artery, no intervention undertaken. SURGEON: Erasmo Mallory M.D. BODY DIE MAKER: None ANESTHESIOLOGIST: INDICATIONS: An 82-year-old woman, previous intervention in the popliteal and peroneal artery right leg, presents with ischemic ulceration in the foot and rest pain. OPERATIVE FINDINGS: The aortorenal arteries, iliac arteries, common iliac arteries, superficial femoral arteries in the proximal segments were widely patent. Detailed pictures were not taken on the left leg below the knee, because of the patient's body habitus and the desire to reduce the amount of dye exposure. In the right leg, there was an abrupt occlusion of the popliteal artery below the knee. With reconstitution of a segment of the tibioperoneal trunk, but however, the only vessel that really reconstituted with posterior tibial which ran all the way into the foot and the peroneal artery which reconstituted in its distal half. The anterior tibial artery did not reconstitute. Subsequent to the performance of the diagnostic arteriogram, a stiff angeled guidewire was advanced over the aortobifurcation and a 7-Kazakh sheath deployed in the distal portion of the superficial femoral artery. After the popliteal artery was crossed, heparin was given. We then used a variety of techniques and wires, attempted to re-enter the peroneal or the posterior tibial artery and this was not successful. We then went and abandoned the procedure and applied a Perclose device in the left groin. There was a suitable target with the posterior tibial artery that proceeds all the way into the foot. Erasmo Mallory Jr., MD
[2017-10-09] MEDS: Bacitracin 500 Units/gm Oint Foilpak UD TOP SCH (11:21)
[2017-10-09] MEDS: Omega-3-Acid Ethyl Esters 1 GM Cap PO SCH (11:22)
--- NOTE | 2017-10-09 12:52 | VASCLAB ---
STUDY DESCRIPTION: HISTORY: Ischemic right lower extremity, right foot pain. PRIORS: None. TECHNIQUE: Pulse volume recording waveforms and segmental pressures of bilateral lower extremities at multiple levels were obtained. Ankle Brachial Indices (ABIs) were calculated. Report prepared by LLOYD Peterson RIGHT LOWER EXTREMITY: * Brachial artery: Pressure - 152 mmHg. * High thigh: Pressure - mmHg: Ratio - : PVR waveform - Pulsatile * Low thigh: Pressure - mmHg: Ratio - PVR waveform: Pulsatile * Calf: Pressure - mmHg: Ratio - PVR waveform: Reduced * Posterior tibial Artery: Non audible pulse PVR waveform: Reduced * Dorsalis pedis Artery: Unable to obtain waveform * Ankle brachial index (IVON): absent LEFT LOWER EXTREMITY: * Brachial artery: Unable to obtain due to iv line * High thigh: Pressure - 195 mmHg: Ratio - 1.28: PVR waveform - Pulsatile * Low thigh: Pressure - 202 mmHg: Ratio - 1.33 PVR waveform: Pulsatile * Calf: Pressure - 155 mmHg: Ratio - 1.02 PVR waveform: Pulsatile * Posterior tibial Artery: Pressure - 145 mmHg: Ratio - 0.95 PVR waveform: Pulsatile * Dorsalis pedis Artery: Pressure - 139 mmHg: Ratio - 0.91 PVR waveform: Reduced * Great toe: Pressure - 61 mmHg: Ratio - 0.40 PVR waveform: Reduced Ankle brachial index (IVON): 0.95 OTHER FINDINGS: IMPRESSION: Right: Absent ankle brachial index due non audible pulses. Based on the arterial PVR waveforms, there is mild to moderate arterial insufficiency noted of the right lower extremity. Left: There was no evidence of hemodynamically significant arterial insufficiency in the left lower extremity.
--- NOTE | 2017-10-09 12:54 | VASCLAB ---
PROCEDURE: Lower Extremity Vein mapping. HISTORY: Pre op bypass, vein mapping. PRIORS: None. TECHNIQUE: Bilateral common femoral, femoral, popliteal and posterior tibial, peroneal and great saphenous veins were evaluated. Flow was assessed with color Doppler, compressibility, assessment of phasic flow and augmentation response. Report prepared by LLOYD Peterson FINDINGS: RIGHT: 1. Common Femoral Vein: Compressibility - Fully compressible: Thrombus - None : Flow - Phasic: Augmentation -Normal: Reflux - None. 2. Femoral Vein:Compressibility - Fully compressible: Thrombus - None 3. Popliteal Vein: Compressibility - Fully compressible: Thrombus - None 4. Posterior Tibial Vein: Compressibility - Fully compressible: Thrombus - None 5. Peroneal Vein:Compressibility - Fully compressible: Thrombus - None 6. Greater Saphenous Vein: Compressibility - Fully compressible: Thrombus - None 6.1. Thigh - Proximal Diameter: 0.27cm. Mid Diameter: 0.27cm. Distal Diameter: 0.20cm. 6.2. Calf - Proximal Diameter: 0.18cm. Mid Diameter:0.22cm. Distal Diameter: 0.20cm LEFT: 1. Common Femoral Vein: Compressibility - Fully compressible: Thrombus - None : Flow - Phasic: Augmentation -Normal: Reflux - None. 2. Femoral Vein:Compressibility - Fully compressible: Thrombus - None 3. Popliteal Vein: Compressibility - Fully compressible: Thrombus - None 4. Posterior Tibial Vein: Compressibility - Fully compressible: Thrombus - None 5. Peroneal Vein:Compressibility - Fully compressible: Thrombus - None 6. Greater Saphenous Vein: Not visualized. OTHER FINDINGS: IMPRESSION: 1. No evidence of venous thrombosis of bilateral lower extremities. 2. Please refer to the above listed measurements, for right great saphenous vein size. The left great saphenous vein was not visualized.
[2017-10-09] MEDS ORDERED: Potassium Chloride 20 mEq/15 ml LIQ UD PO ONE (20:13)
--- NOTE | 2017-10-09 20:25 | CP.PCM.PN ---
Subjective - Date & Time of Evaluation Date of Evaluation: 10/09/17 Time of Evaluation: 12:40 - Subjective Subjective: Podiatry consult Note for Dr. Macias 82 y.o female seen at bedside for infected right hallux and 2nd digit ulcerations. Patient reports 4/10 throbbing pain to the right 1st and 2nd, well controlled by pain medication. Arrived for evaluation as nursing staff was changing dressing and providing post-dressing change pain control. Pt accompanied by her sons. She denies n/v/sob/cp/chills or f. Pt has no acute overnight events. Objective - Vital Signs/Intake and Output Vital Signs (last 24 hours): Temp Pulse Resp BP Pulse Ox 98.1 F 78 20 138/69 97 10/09/17 16:00 10/09/17 16:00 10/09/17 16:00 10/09/17 16:00 10/09/17 16:00 Intake and Output: 10/09/17 10/10/17 18:59 06:59 Intake Total 600 Balance 600 - Medications Medications: Current Medications Albuterol (Ventolin Hfa 90 Mcg/Actuation (8 G)) 2 puff IH RBID [facility] Last Admin: 10/09/17 07:30 Dose: Not Given Aspirin (Ecotrin) 81 mg PO DAILY [facility] Last Admin: 10/09/17 11:21 Dose: 81 mg Bacitracin (Bacitracin) 1 ea TOP DAILY [facility] Last Admin: 10/09/17 11:21 Dose: 1 ea Clonazepam (Klonopin) 0.5 mg PO HS [facility] Last Admin: 10/08/17 21:34 Dose: 0.5 mg Clopidogrel Bisulfate (Plavix) 75 mg PO DAILY [facility] Last Admin: 10/09/17 11:21 Dose: 75 mg Enalapril Maleate (Vasotec) 20 mg PO DAILY [facility] Last Admin: 10/09/17 11:20 Dose: 20 mg Famotidine (Pepcid) 20 mg PO BID [facility] Last Admin: 10/09/17 17:42 Dose: 20 mg Heparin Sodium (Porcine) (Heparin) 5,000 units SC Q8 [facility] Last Admin: 10/09/17 14:33 Dose: 5,000 units Ciprofloxacin (Cipro 400mg/200ml Dsw) 400 mg in 200 mls @ 133 mls/hr IVPB Q12H [facility] Ketorolac Tromethamine (Toradol) 15 mg IVP Q8 PRN PRN Reason: Pain, moderate (4-7) Last Admin: 10/09/17 11:21 Dose: 15 mg Morphine Sulfate (Morphine) 4 mg IV Q6H PRN PRN Reason: Pain, severe (8-10) Last Admin: 10/09/17 14:12 Dose: 4 mg Fhxqv-9-Xlby Ethyl Esters (Lovaza) 1 gm PO DAILY [facility] Last Admin: 10/09/17 11:22 Dose: 1 gm - Labs Labs: 10/09/17 06:37 10/09/17 06:37 PT 12.5 SECONDS (9.7-12.2) H 10/06/17 17:01 INR 1.1 10/06/17 17:01 APTT 32 SECONDS (21-34) D 10/07/17 19:40 - Constitutional Appears: Well, Non-toxic, No Acute Distress - Extremities Exam Additional comments: Vasc: DP and PT non-palpable b/l, temperature cool to cool proximal to distal, localized edema noted to the 1st and 2nd digit, CFT delayed to digits Ortho: Moderate pain with palpation to 1st and 2nd digit to the right. Neuro: gross and protective sensation diminished Derm: Resolved superficial ulceration, with atrophic ischemic dusky skin noted to noted to the lateral aspect of right hallux and medial aspect of 2nd digit. No noted open wound base with no necrosis noted. Absent incurvated toenail borders appreciated to the hallux or right 2nd digit - Neurological Exam Neurological Exam: Alert, Awake, Oriented x3 - Psychiatric Exam Psychiatric exam: Normal Affect, Normal Mood Assessment and Plan - Assessment and Plan (Free Text) Assessment: 82 y/o female with infected non-healing right hallux and 2nd digit ulceration, secondary to PVD Plan: Patient examined and evaluated. Discussed plan in detail with attending Dr. Macias. Chart, labs, and vitals, afebrile,absent leukocytosis WBC=6.9 Wound culture results- Pseudomonas aeruginosa Continue IV abx- Ciprofloxacin. Ulceration cleansed with saline solution, dressed with bacitracin and dsd. Vascular surgery, Dr. Mallory, -Femoral-poplitieal bypass planned with allograft s/p failure of recatheterization. X-ray: negative for OM Will continue to follow while in house
[2017-10-09] MEDS: Ciprofloxacin 400mg/200ml D5W 400 MG/200 ML BAG IVPB SCH (21:40)
--- NOTE | 2017-10-10 05:33 | CP.PCM.PN ---
<Mitch Bernabe - Last Filed: 10/10/17 05:35> Subjective - Date & Time of Evaluation Date of Evaluation: 10/10/17 Time of Evaluation: 06:32 - Subjective Subjective: Medicine progress note for Dr. Barrow Patient seen and examined. Patient reports that she is doing well today. Patient reports that she is not in much pain at this time. Patient denies any other complaints. Objective - Vital Signs/Intake and Output Vital Signs (last 24 hours): Temp Pulse Resp BP Pulse Ox 98.3 F 85 20 125/69 99 10/09/17 23:23 10/09/17 23:23 10/09/17 23:23 10/09/17 23:23 10/09/17 23:23 Intake and Output: 10/09/17 10/10/17 18:59 06:59 Intake Total 600 600 Balance 600 600 - Medications Medications: Current Medications Albuterol (Ventolin Hfa 90 Mcg/Actuation (8 G)) 2 puff IH RBID [facility] Last Admin: 10/09/17 21:55 Dose: 2 puff Aspirin (Ecotrin) 81 mg PO DAILY [facility] Last Admin: 10/09/17 11:21 Dose: 81 mg Bacitracin (Bacitracin) 1 ea TOP DAILY [facility] Last Admin: 10/09/17 11:21 Dose: 1 ea Clonazepam (Klonopin) 0.5 mg PO HS [facility] Last Admin: 10/09/17 21:41 Dose: 0.5 mg Clopidogrel Bisulfate (Plavix) 75 mg PO DAILY [facility] Last Admin: 10/09/17 11:21 Dose: 75 mg Enalapril Maleate (Vasotec) 20 mg PO DAILY [facility] Last Admin: 10/09/17 11:20 Dose: 20 mg Famotidine (Pepcid) 20 mg PO BID [facility] Last Admin: 10/09/17 17:42 Dose: 20 mg Heparin Sodium (Porcine) (Heparin) 5,000 units SC Q8 [facility] Last Admin: 10/09/17 21:40 Dose: 5,000 units Ciprofloxacin (Cipro 400mg/200ml Dsw) 400 mg in 200 mls @ 133 mls/hr IVPB Q12H [facility] Last Admin: 10/09/17 21:40 Dose: 133 mls/hr Ketorolac Tromethamine (Toradol) 15 mg IVP Q8 PRN PRN Reason: Pain, moderate (4-7) Last Admin: 10/09/17 11:21 Dose: 15 mg Morphine Sulfate (Morphine) 4 mg IV Q6H PRN PRN Reason: Pain, severe (8-10) Last Admin: 10/09/17 14:12 Dose: 4 mg Bmvzo-4-Eimw Ethyl Esters (Lovaza) 1 gm PO DAILY [facility] Last Admin: 10/09/17 11:22 Dose: 1 gm - Labs Labs: 10/09/17 06:37 10/09/17 06:37 PT 12.5 SECONDS (9.7-12.2) H 10/06/17 17:01 INR 1.1 10/06/17 17:01 APTT 32 SECONDS (21-34) D 10/07/17 19:40 - Head Exam Head Exam: ATRAUMATIC, NORMAL INSPECTION, NORMOCEPHALIC - Eye Exam Eye Exam: EOMI, Normal appearance, PERRL. absent: Periorbital tenderness Pupil Exam: NORMAL ACCOMODATION, PERRL - ENT Exam ENT Exam: Mucous Membranes Moist, Normal Oropharynx - Neck Exam Neck Exam: Normal Inspection. absent: Lymphadenopathy, Thyromegaly - Respiratory Exam Respiratory Exam: Clear to Ausculation Bilateral, NORMAL BREATHING PATTERN. absent: Prolonged Expiratory Phase, Respiratory Distress - Cardiovascular Exam Cardiovascular Exam: REGULAR RHYTHM, +S1, +S2 - GI/Abdominal Exam GI & Abdominal Exam: Soft, Normal Bowel Sounds. absent: Rigid, Hyperactive Bowel Sounds - Back Exam Back Exam: NORMAL INSPECTION. absent: CVA tenderness (L), CVA tenderness (R), paraspinal tenderness - Neurological Exam Neurological Exam: Alert, Awake, CN II-XII Intact, Oriented x3 - Psychiatric Exam Psychiatric exam: Normal Affect, Normal Mood - Skin Skin Exam: Dry, Intact Assessment and Plan - Assessment and Plan (Free Text) Plan: Right foot wounds with Hx of PVD Vascular surgery consult with Dr. Mallory, help appreciated Since patient sent in by Dr. Kasper who does not come to this hospital, we have consulted his colleague Dr. 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 Resumed home ASA 81 mg PO daily Resumed home Plavix 75 mg PO daily wound cultures ordered by podiatry grew pseudomonas Cipro 400 mg IV Q12H Continue Morphine 4 mg IV Q6 prn pain Continue Toradol 15 mg IV Q8 prn pain Per surgical team, unable to perform balloon angioplasty, will need a femoral- popliteal bypass and require cardiac clearance Urologist Physician Dr. López consulted, help appreciated f/u Lexiscan stress test for cardiac clearance Echo showed EF 55-60%, hypertensive heart disease, and diastolic dysfunction History of Hypertension Resumed home Enalapril 20 mg PO daily Prophylactic Measure Heart Healthy Diet Protonix 40 mg PO daily Resumed home Ventolin and Lovaza Heparin 5000 units SC Q8H [facility] DW Dr. Barrow <Reji Barrow H - Last Filed: 10/10/17 13:01> Objective - Vital Signs/Intake and Output Vital Signs (last 24 hours): Temp Pulse Resp BP Pulse Ox 98.3 F 85 20 115/68 99 10/09/17 23:23 10/09/17 23:23 10/09/17 23:23 10/10/17 09:18 10/09/17 23:23 Intake and Output: 10/10/17 10/10/17 06:59 18:59 Intake Total 600 Balance 600 - Medications Medications: Current Medications Albuterol (Ventolin Hfa 90 Mcg/Actuation (8 G)) 2 puff IH RBID [facility] Last Admin: 10/09/17 21:55 Dose: 2 puff Aspirin (Ecotrin) 81 mg PO DAILY [facility] Last Admin: 10/10/17 09:16 Dose: 81 mg Bacitracin (Bacitracin) 1 ea TOP DAILY [facility] Last Admin: 10/10/17 08:47 Dose: 1 ea Clonazepam (Klonopin) 0.5 mg PO HS [facility] Last Admin: 10/09/17 21:41 Dose: 0.5 mg Clopidogrel Bisulfate (Plavix) 75 mg PO DAILY [facility] Last Admin: 10/10/17 09:16 Dose: 75 mg Enalapril Maleate (Vasotec) 20 mg PO DAILY [facility] Last Admin: 10/10/17 09:18 Dose: 20 mg Famotidine (Pepcid) 20 mg PO BID [facility] Last Admin: 10/10/17 09:15 Dose: 20 mg Heparin Sodium (Porcine) (Heparin) 5,000 units SC Q8 [facility] Last Admin: 10/10/17 05:54 Dose: 5,000 units Ciprofloxacin (Cipro 400mg/200ml Dsw) 400 mg in 200 mls @ 133 mls/hr IVPB Q12H [facility] Last Admin: 10/10/17 08:47 Dose: 133 mls/hr Ketorolac Tromethamine (Toradol) 15 mg IVP Q8 PRN PRN Reason: Pain, moderate (4-7) Last Admin: 10/10/17 09:11 Dose: 15 mg Morphine Sulfate (Morphine) 4 mg IV Q6H PRN PRN Reason: Pain, severe (8-10) Last Admin: 10/10/17 12:11 Dose: 4 mg Rdtkl-2-Hyme Ethyl Esters (Lovaza) 1 gm PO DAILY [facility] Last Admin: 10/10/17 09:16 Dose: 1 gm - Labs Labs: 10/10/17 08:13 10/10/17 08:13 PT 12.5 SECONDS (9.7-12.2) H 10/06/17 17:01 INR 1.1 10/06/17 17:01 APTT 32 SECONDS (21-34) D 10/07/17 19:40 Attending/Attestation - Attestation I have personally seen and examined this patient.: Yes I have fully participated in the care of the patient.: Yes I have reviewed all pertinent clinical information, including history, physical exam and plan: Yes Notes (Text): Medical attending: Patient was seen and examined by me Agree with the above note by the resident The patient was not in any acute distress when I saw her. She was eating lunch as we spoke. 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 Patient's echo and nuclear stress test were normal and ok for surgery. Low to moderate risk thank you Rjei Barrow
[2017-10-10] MEDS: Albuterol HFA 90 mcg/actuation (8 g) IH SCH ×2 (07:50→19:45)
[2017-10-10] MEDS: Bacitracin 500 Units/gm Oint Foilpak UD TOP SCH ×2 (08:00→08:47)
[2017-10-10] MEDS: Ciprofloxacin 400mg/200ml D5W 400 MG/200 ML BAG IVPB SCH ×2 (08:47→21:03)
[2017-10-10 08:49] LABS: BASO # 0.1 K/uL (0.0-0.2); BASO % 0.7 % (0.0-2.0); EOS # 0.3 K/uL (0.0-0.7); HEMOGLOBIN 12.8 g/dL (11.0-16.0); LYMPH # 2.2 K/uL (1.0-4.3); LYMPH % 22.4 % (20.0-40.0); MEAN CORPUSCULAR HEMOGLOBIN 32.1 pg (27.0-31.0); MEAN CORPUSCULAR HGB CONC 34.2 g/dL (33.0-37.0); MEAN PLATELET VOLUME 9.7 fL (7.2-11.7); MONO # 0.7 K/uL (0.0-0.8); MONO % 7.1 % (0.0-10.0); NEUT # 6.5 K/uL (1.8-7.0); NEUT % 66.8 % (50.0-75.0); RBC 3.98 Mil/uL (3.80-5.20); RED CELL DISTRIBUTION WIDTH 14.3 % (11.5-14.5); WHITE BLOOD COUNT 9.7 K/uL (4.8-10.8)
[2017-10-10 09:02] LABS: ALB/GLOB RATIO 1.2 (1.0-2.1); ALBUMIN 3.7 g/dL (3.5-5.0); ALT/SGPT 21 U/L (9-52); AST/SGOT 25 U/L (14-36); BLOOD UREA NITROGEN 13 mg/dL (7-17); CALCIUM 8.8 mg/dl (8.6-10.4); GFR AFRICAN-AMERICAN > 60; GFR NON-AFRICAN AMERICAN > 60; MAGNESIUM 2.1 mg/dL (1.6-2.3)
[2017-10-10] MEDS: Omega-3-Acid Ethyl Esters 1 GM Cap PO SCH (09:16)
--- NOTE | 2017-10-10 11:21 | CP.PCM.PN ---
Subjective - Date & Time of Evaluation Date of Evaluation: 10/10/17 Time of Evaluation: 11:21 - Subjective Subjective: Podiatry Consult Note for Dr. Macias 82 y/o female seen at bedside for infected right hallux and 2nd digit ulcerations. Pt admits to mild-moderate pain in the right first and second toes. States the medicines are helping with pain control. Denies F/C/N/V/CP/SOB at present. Objective - Vital Signs/Intake and Output Vital Signs (last 24 hours): Temp Pulse Resp BP Pulse Ox 98.3 F 85 20 115/68 99 10/09/17 23:23 10/09/17 23:23 10/09/17 23:23 10/10/17 09:18 10/09/17 23:23 Intake and Output: 10/10/17 10/10/17 06:59 18:59 Intake Total 600 Balance 600 - Medications Medications: Current Medications Albuterol (Ventolin Hfa 90 Mcg/Actuation (8 G)) 2 puff IH RBID [facility] Last Admin: 10/09/17 21:55 Dose: 2 puff Aspirin (Ecotrin) 81 mg PO DAILY [facility] Last Admin: 10/10/17 09:16 Dose: 81 mg Bacitracin (Bacitracin) 1 ea TOP DAILY [facility] Last Admin: 10/10/17 08:47 Dose: 1 ea Clonazepam (Klonopin) 0.5 mg PO HS [facility] Last Admin: 10/09/17 21:41 Dose: 0.5 mg Clopidogrel Bisulfate (Plavix) 75 mg PO DAILY [facility] Last Admin: 10/10/17 09:16 Dose: 75 mg Enalapril Maleate (Vasotec) 20 mg PO DAILY [facility] Last Admin: 10/10/17 09:18 Dose: 20 mg Famotidine (Pepcid) 20 mg PO BID [facility] Last Admin: 10/10/17 09:15 Dose: 20 mg Heparin Sodium (Porcine) (Heparin) 5,000 units SC Q8 [facility] Last Admin: 10/10/17 05:54 Dose: 5,000 units Ciprofloxacin (Cipro 400mg/200ml Dsw) 400 mg in 200 mls @ 133 mls/hr IVPB Q12H [facility] Last Admin: 10/10/17 08:47 Dose: 133 mls/hr Ketorolac Tromethamine (Toradol) 15 mg IVP Q8 PRN PRN Reason: Pain, moderate (4-7) Last Admin: 10/10/17 09:11 Dose: 15 mg Morphine Sulfate (Morphine) 4 mg IV Q6H PRN PRN Reason: Pain, severe (8-10) Last Admin: 10/09/17 14:12 Dose: 4 mg Wawwh-9-Kanp Ethyl Esters (Lovaza) 1 gm PO DAILY [facility] Last Admin: 10/10/17 09:16 Dose: 1 gm - Labs Labs: 10/10/17 08:13 10/10/17 08:13 PT 12.5 SECONDS (9.7-12.2) H 10/06/17 17:01 INR 1.1 10/06/17 17:01 APTT 32 SECONDS (21-34) D 10/07/17 19:40 - Constitutional Appears: Well, Non-toxic, No Acute Distress - Extremities Exam Additional comments: Vasc: DP and PT non-palpable B/L, temperature cool to cool proximal to distal, localized edema noted to the 1st and 2nd digit, CFT delayed to digits Ortho: Moderate pain with palpation to 1st and 2nd digit to the right. Neuro: gross and protective sensation diminished Derm: Resolved superficial ulceration, with atrophic ischemic dusky skin noted to noted to the lateral aspect of right hallux and medial aspect of 2nd digit. No noted open wound base with no necrosis noted. Absent incurvated toenail borders appreciated to the hallux or right 2nd digit - Neurological Exam Neurological Exam: Alert, Awake, Oriented x3 - Psychiatric Exam Psychiatric exam: Normal Affect, Normal Mood Assessment and Plan - Assessment and Plan (Free Text) Assessment: 82 y/o female with infected non-healing right hallux and 2nd digit ulceration, secondary to PVD Plan: Patient examined and evaluated Discussed plan in detail with attending Dr. Macias Labs and vitals reviewed- afebrile, WBC 9.7 Per surgery, unable to perform balloon angioplasty - pt will need fem-pop bypass and requires cardiac clx Await further plans of surgery team At present, will continue with local wound care Dressed with bacitracin and DSD Continue multipodus boots at all time Podiatry will continue to follow patient while in house
--- NOTE | 2017-10-10 12:35 | CARD ---
APPROVED REPORT Protocol: LEXISCAN Test Type: LEXISCAN STRESS Test Indications: ISCHEMIC RT TOE INFECTION Target HR: 137 bpm Resting ECG: normal Resting Heart Rate: 99 bpm Resting Blood Pressure: 132/80mmHg submaximum (85%): 116 bpm TEST SUMMARY [id number]:01..1.099/.0. PREINFSNHYPERV.04:[id number]/80.0. INFUSIONDOSE 100:[id number]/80.1. [id number]/80.0. PROCEDURE Pharmacologic stress testing was performed using 0.4mg per 5ml of regadenoson given intravenously over 7-10 seconds. Reversal agent aminophyline 100 mg, given intravenously for Headache. POST EXERCISE Reason for Termination: Protocol Completed Target HR: No Max HR: 103 bpm 85% of Maximum Predicted HR: 137 bpm Exercise duration: 00:30 min:sec, 0 Stage Exercise capacity: 1.0METs Max Blood Pressure: 132/80mmHg Blood Pressure response to exercise: normal resting BP - appropriate response Heart Rate response to exercise: appropriate Chest Pain: No, none Angina index: 0 Arrhythmia: No, none ST Change: No, none Deviation: 0 mm INTERPRETATION Stress EKG Conclusion: NEGATIVE LEXISCAN STRESS TEST NORMAL BP RESPONSE NUCLEAR STUDIES TO BE READ SEPARATELY EXAM: Myocardial Perfusion STRESS/REST Imaging Protocol Rest Spect myocardial perfusion imaging was performed in supine position 45 minutes following the injection of 32.6 mCi of Tc-99 Myoview. Gated Stress Spect was performed 45 minutes after intravenous 13.0 mCi Tc-99 Myoview injection. The images were gated to evaluate regional wall motion and calculate ventricular ejection fraction.Images were reconstructed using backfilter projection method in short horizontal and verticle long axis. Spect slices were generated. RESTING DATA EDV54.16glKP9.90L/min1/3 Pk. Filling Rate0.45EDV/sec LV Time to Pk. Filling Oisc756.33msec ESV14.00mlMyocardial Lgut475.00gLV Time to Pk. Ejection Ssrg517.74msec Pk. Fill Rate4.12EDV/secAv. Heart Rate99.00bpm EF74.00%Pk. Emptying Rate5.67ESV/sec STRESS DATA EDV61.12noIU6.90L/min ESV19.00mlMyocardial Rmlc376.00g Pk. Fill Rate0.37EDV/sec EF69.00%Pk. Emptying Rate5.38ESV/sec 1/3 Pk. Filling Rate0.90EDV/secRegional WT score at stress:2.00 LV Time to Pk. Filling Rate:102.18msecRegional WM score at stress:0.00 LV Time to Pk. Ejection Rate:161.07msecSummed WT score at stress:20.00 Av. Heart Rate94.00bpmSummed WM score at stress:4.00 LV Perf. Quant 17 Seg. SSS0.00 17 Seg. SRS0.00 17 Seg. SDS0.00 Stress Defect Extent (% LAD)0.00Rest Defect Extent (% LAD)0.00Rev. Defect Extent (% LAD)0.00 Stress Defect Extent (% LCX)0.00Rest Defect Extent (% LCX)0.00Rev. Defect Extent (% LCX)0.00 Stress Defect Extent (% RCA)0.00Rest Defect Extent (% RCA)0.00Rev. Defect Extent (% RCA)0.00 Stress Defect Extent (% MADHURI)0.00Rest Defect Extent (% MADHURI)0.00Rev. Defect Extent (% MADHURI)0.00 Other Information Quality:Good IMPRESSION Normal Myocardial Perfusion exercise stress study Left Ventricle LV Function:Left ventricle systolic function is normal. The Ejection Fraction is >55%. Metabolism/Perfusion There are no perfusion/metabolism defects. Conclusion 1. Normal lexiscan Nuclear Stress test. Normal EF.
--- NOTE | 2017-10-10 18:45 | CP.PCM.PN ---
Subjective - Date & Time of Evaluation Date of Evaluation: 10/10/17 Time of Evaluation: 18:30 - Subjective Subjective: Vascular Surgery Note for Dr. Mallory Patient seen and examined at bedside. No acute events overnight. Patient is POD# 2 s/p Angiogram. Patient has no complaints. Will be going for RLE bypass next week. Objective - Vital Signs/Intake and Output Vital Signs (last 24 hours): Temp Pulse Resp BP Pulse Ox 98.6 F 98 H 20 115/68 98 10/10/17 14:05 10/10/17 14:05 10/10/17 14:05 10/10/17 14:05 10/10/17 14:05 Intake and Output: 10/10/17 10/10/17 06:59 18:59 Intake Total 600 Balance 600 - Medications Medications: Current Medications Albuterol (Ventolin Hfa 90 Mcg/Actuation (8 G)) 2 puff IH RBID [facility] Last Admin: 10/10/17 07:50 Dose: Not Given Aspirin (Ecotrin) 81 mg PO DAILY [facility] Last Admin: 10/10/17 09:16 Dose: 81 mg Bacitracin (Bacitracin) 1 ea TOP DAILY [facility] Last Admin: 10/10/17 08:47 Dose: 1 ea Clonazepam (Klonopin) 0.5 mg PO HS [facility] Last Admin: 10/09/17 21:41 Dose: 0.5 mg Clopidogrel Bisulfate (Plavix) 75 mg PO DAILY [facility] Last Admin: 10/10/17 09:16 Dose: 75 mg Enalapril Maleate (Vasotec) 20 mg PO DAILY [facility] Last Admin: 10/10/17 09:18 Dose: 20 mg Famotidine (Pepcid) 20 mg PO BID [facility] Last Admin: 10/10/17 17:37 Dose: 20 mg Heparin Sodium (Porcine) (Heparin) 5,000 units SC Q8 [facility] Last Admin: 10/10/17 14:39 Dose: 5,000 units Ciprofloxacin (Cipro 400mg/200ml Dsw) 400 mg in 200 mls @ 133 mls/hr IVPB Q12H [facility] Last Admin: 10/10/17 08:47 Dose: 133 mls/hr Ketorolac Tromethamine (Toradol) 15 mg IVP Q8 PRN PRN Reason: Pain, moderate (4-7) Last Admin: 10/10/17 09:11 Dose: 15 mg Morphine Sulfate (Morphine) 4 mg IV Q6H PRN PRN Reason: Pain, severe (8-10) Last Admin: 10/10/17 12:11 Dose: 4 mg Nanhi-3-Afyn Ethyl Esters (Lovaza) 1 gm PO DAILY [facility] Last Admin: 10/10/17 09:16 Dose: 1 gm - Labs Labs: 10/10/17 08:13 10/10/17 08:13 PT 12.5 SECONDS (9.7-12.2) H 10/06/17 17:01 INR 1.1 10/06/17 17:01 APTT 32 SECONDS (21-34) D 10/07/17 19:40 - Constitutional Appears: No Acute Distress - Eye Exam Eye Exam: Normal appearance - ENT Exam ENT Exam: Mucous Membranes Moist - Respiratory Exam Respiratory Exam: NORMAL BREATHING PATTERN - Cardiovascular Exam Cardiovascular Exam: REGULAR RHYTHM - GI/Abdominal Exam GI & Abdominal Exam: Soft. absent: Tenderness - Extremities Exam Additional comments: RLE dressing C/D/I - Neurological Exam Neurological Exam: Alert, Awake, Oriented x3 - Psychiatric Exam Psychiatric exam: Normal Affect, Normal Mood - Skin Skin Exam: Dry, Warm Assessment and Plan - Assessment and Plan (Free Text) Plan: 82F PVD s/p Angio POD#2 - Plan for graft for bypass next week - further recs per Dr. Mohamud Munoz PGY1
--- NOTE | 2017-10-11 00:37 | CP.PCM.PN ---
<Mitch Bernabe - Last Filed: 10/11/17 00:38> Subjective - Date & Time of Evaluation Date of Evaluation: 10/11/17 Time of Evaluation: 06:37 - Subjective Subjective: Medicine progress note for Dr. Barrow Patient seen and examined. Patient reports that she is doing well today. Patient reports that she is not in much pain at this time. Patient denies any other complaints. Objective - Vital Signs/Intake and Output Vital Signs (last 24 hours): Temp Pulse Resp BP Pulse Ox 97.8 F 81 20 134/74 95 10/10/17 16:00 10/10/17 16:00 10/10/17 16:00 10/10/17 16:00 10/10/17 16:00 Intake and Output: 10/10/17 10/11/17 18:59 06:59 Intake Total 560 650 Balance 560 650 - Medications Medications: Current Medications Albuterol (Ventolin Hfa 90 Mcg/Actuation (8 G)) 2 puff IH RBID [facility] Last Admin: 10/10/17 19:45 Dose: 2 puff Aspirin (Ecotrin) 81 mg PO DAILY [facility] Last Admin: 10/10/17 09:16 Dose: 81 mg Bacitracin (Bacitracin) 1 ea TOP DAILY [facility] Last Admin: 10/10/17 08:47 Dose: 1 ea Clonazepam (Klonopin) 0.5 mg PO HS [facility] Last Admin: 10/10/17 21:03 Dose: 0.5 mg Clopidogrel Bisulfate (Plavix) 75 mg PO DAILY [facility] Last Admin: 10/10/17 09:16 Dose: 75 mg Enalapril Maleate (Vasotec) 20 mg PO DAILY [facility] Last Admin: 10/10/17 09:18 Dose: 20 mg Famotidine (Pepcid) 20 mg PO BID [facility] Last Admin: 10/10/17 17:37 Dose: 20 mg Heparin Sodium (Porcine) (Heparin) 5,000 units SC Q8 [facility] Last Admin: 10/10/17 21:03 Dose: 5,000 units Ciprofloxacin (Cipro 400mg/200ml Dsw) 400 mg in 200 mls @ 133 mls/hr IVPB Q12H [facility] Last Admin: 10/10/17 21:03 Dose: 133 mls/hr Ketorolac Tromethamine (Toradol) 15 mg IVP Q8 PRN PRN Reason: Pain, moderate (4-7) Last Admin: 10/10/17 21:01 Dose: 15 mg Morphine Sulfate (Morphine) 4 mg IV Q6H PRN PRN Reason: Pain, severe (8-10) Last Admin: 10/10/17 12:11 Dose: 4 mg Oxmpw-6-Owpt Ethyl Esters (Lovaza) 1 gm PO DAILY [facility] Last Admin: 10/10/17 09:16 Dose: 1 gm - Labs Labs: 10/10/17 08:13 10/10/17 08:13 PT 12.5 SECONDS (9.7-12.2) H 10/06/17 17:01 INR 1.1 10/06/17 17:01 APTT 32 SECONDS (21-34) D 10/07/17 19:40 - Head Exam Head Exam: ATRAUMATIC, NORMAL INSPECTION, NORMOCEPHALIC - Eye Exam Eye Exam: EOMI, Normal appearance, PERRL. absent: Periorbital tenderness Pupil Exam: NORMAL ACCOMODATION, PERRL. absent: Irregular, Unequal - ENT Exam ENT Exam: Mucous Membranes Moist, Normal Oropharynx - Neck Exam Neck Exam: Full ROM. absent: Lymphadenopathy, Thyromegaly - Respiratory Exam Respiratory Exam: Clear to Ausculation Bilateral, NORMAL BREATHING PATTERN. absent: Chest Wall Tenderness, Prolonged Expiratory Phase, Respiratory Distress - Cardiovascular Exam Cardiovascular Exam: REGULAR RHYTHM, +S1, +S2 - GI/Abdominal Exam GI & Abdominal Exam: Soft, Normal Bowel Sounds. absent: Hyperactive Bowel Sounds - Extremities Exam Extremities Exam: Full ROM. absent: Joint Swelling, Pedal Edema, Tenderness - Back Exam Back Exam: NORMAL INSPECTION. absent: CVA tenderness (L), CVA tenderness (R), paraspinal tenderness - Neurological Exam Neurological Exam: Alert, Awake, CN II-XII Intact - Psychiatric Exam Psychiatric exam: Normal Affect, Normal Mood. absent: Anxious, Depressed - Skin Skin Exam: Dry, Intact, Normal Color Assessment and Plan - Assessment and Plan (Free Text) Plan: Right foot wounds with Hx of PVD Vascular surgery consult with Dr. Mallory, help appreciated Since patient sent in by Dr. Kasper who does not come to this hospital, we have consulted his colleague Dr. 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 Resumed home ASA 81 mg PO daily Resumed home Plavix 75 mg PO daily wound cultures ordered by podiatry grew pseudomonas Cipro 400 mg IV Q12H Continue Morphine 4 mg IV Q6 prn pain Continue Toradol 15 mg IV Q8 prn pain Per surgical team, unable to perform balloon angioplasty, will need a femoral- popliteal bypass and require cardiac clearance Tooth Clerk Dr. López consulted, help appreciated f/u Lexiscan stress test for cardiac clearance Echo showed EF 55-60%, hypertensive heart disease, and diastolic dysfunction History of Hypertension Resumed home Enalapril 20 mg PO daily Prophylactic Measure Heart Healthy Diet Protonix 40 mg PO daily Resumed home Ventolin and Lovaza Heparin 5000 units SC Q8H <Reji Barrow - Last Filed: 10/11/17 10:20> Objective - Vital Signs/Intake and Output Vital Signs (last 24 hours): Temp Pulse Resp BP Pulse Ox 98.8 F 79 20 132/70 97 10/11/17 08:50 10/11/17 08:50 10/11/17 08:50 10/11/17 09:37 10/11/17 08:50 Intake and Output: 10/11/17 10/11/17 06:59 18:59 Intake Total 950 Balance 950 - Medications Medications: Current Medications Albuterol (Ventolin Hfa 90 Mcg/Actuation (8 G)) 2 puff IH RBID [facility] Last Admin: 10/10/17 19:45 Dose: 2 puff Aspirin (Ecotrin) 81 mg PO DAILY [facility] Last Admin: 10/11/17 09:37 Dose: 81 mg Bacitracin (Bacitracin) 1 ea TOP DAILY [facility] Last Admin: 10/11/17 09:38 Dose: 1 ea Clonazepam (Klonopin) 0.5 mg PO HS [facility] Last Admin: 10/10/17 21:03 Dose: 0.5 mg Clopidogrel Bisulfate (Plavix) 75 mg PO DAILY [facility] Last Admin: 10/11/17 09:37 Dose: 75 mg Enalapril Maleate (Vasotec) 20 mg PO DAILY [facility] Last Admin: 10/11/17 09:37 Dose: 20 mg Famotidine (Pepcid) 20 mg PO BID [facility] Last Admin: 10/11/17 09:37 Dose: 20 mg Heparin Sodium (Porcine) (Heparin) 5,000 units SC Q8 [facility] Last Admin: 10/11/17 05:33 Dose: 5,000 units Ciprofloxacin (Cipro 400mg/200ml Dsw) 400 mg in 200 mls @ 133 mls/hr IVPB Q12H [facility] Last Admin: 10/11/17 08:33 Dose: 133 mls/hr Ketorolac Tromethamine (Toradol) 15 mg IVP Q8 PRN PRN Reason: Pain, moderate (4-7) Last Admin: 10/11/17 06:15 Dose: 15 mg Morphine Sulfate (Morphine) 4 mg IV Q6H PRN PRN Reason: Pain, severe (8-10) Last Admin: 10/11/17 08:38 Dose: 4 mg Txcpy-5-Bext Ethyl Esters (Lovaza) 1 gm PO DAILY [facility] Last Admin: 10/11/17 09:36 Dose: 1 gm - Labs Labs: 10/11/17 08:18 10/11/17 08:18 PT 12.5 SECONDS (9.7-12.2) H 10/06/17 17:01 INR 1.1 10/06/17 17:01 APTT 32 SECONDS (21-34) D 10/07/17 19:40 Attending/Attestation - Attestation I have personally seen and examined this patient.: Yes I have fully participated in the care of the patient.: Yes I have reviewed all pertinent clinical information, including history, physical exam and plan: Yes Notes (Text): 10/11/17 10:16 Medical attending: Patient was seen and examined by me. Agree with the above note by the resident I do not have any new news to report today. She underwent echo and nuclear stress test by cardiology and is given the ok for up coming surgery. At this time wound culture grew out + pseudomonas and the abx have been changed to cipro IV 400 BID thank you Reji Barrow
[2017-10-11 08:30] LABS: BASO % 0.4 % (0.0-2.0); EOS # 0.3 K/uL (0.0-0.7); EOS % 3.4 % (0.0-4.0); HEMOGLOBIN 11.4 g/dL (11.0-16.0); LYMPH # 1.2 K/uL (1.0-4.3); LYMPH % 15.5 % (20.0-40.0); MEAN CELL VOLUME 93.5 fL (81.0-99.0); MEAN CORPUSCULAR HEMOGLOBIN 31.9 pg (27.0-31.0); MEAN CORPUSCULAR HGB CONC 34.1 g/dL (33.0-37.0); MEAN PLATELET VOLUME 9.6 fL (7.2-11.7); MONO # 0.6 K/uL (0.0-0.8); MONO % 7.4 % (0.0-10.0); NEUT # 5.9 K/uL (1.8-7.0); NEUT % 73.3 % (50.0-75.0); RBC 3.59 Mil/uL (3.80-5.20); RED CELL DISTRIBUTION WIDTH 14.4 % (11.5-14.5)
--- NOTE | 2017-10-11 08:31 | CP.PCM.PN ---
Subjective - Date & Time of Evaluation Date of Evaluation: 10/10/17 Time of Evaluation: 15:20 - Subjective Subjective: Patient s/p Stress test Deies chest pain or dyspnea Review of Systems - Constitutional Constitutional: absent: Chills, Fever - EENT Eyes: absent: Change in Vision Ears: absent: Decreased Hearing Nose/Mouth/Throat: absent: Nasal Congestion - Cardiovascular Cardiovascular: absent: Chest Pain - Respiratory Respiratory: absent: Dyspnea - Gastrointestinal Gastrointestinal: Constipation. absent: Abdominal Pain, Diarrhea, Nausea, Vomiting - Genitourinary Genitourinary: absent: Dysuria - Musculoskeletal Musculoskeletal: Other (right leg pain) - Integumentary Integumentary: Wounds (right foot) - Neurological Neurological: Dizziness (intermittent) - Psychiatric Psychiatric: Change in Appetite (appetite will vary) - Endocrine Endocrine: absent: Palpitations Physical Exam - Constitutional Appears: No Acute Distress - Head Exam Head Exam: ATRAUMATIC, NORMOCEPHALIC - Eye Exam Eye Exam: EOMI, PERRL - ENT Exam ENT Exam: Mucous Membranes Moist - Respiratory Exam Respiratory Exam: Clear to Auscultation Bilateral, NORMAL BREATHING PATTERN. absent: Rales, Rhonchi, Wheezes - Cardiovascular Exam Cardiovascular Exam: REGULAR RHYTHM, +S1, +S2 - GI/Abdominal Exam GI & Abdominal Exam: Distended, Normal Bowel Sounds, Soft. absent: Firm, Guarding, Tenderness - Extremities Exam Additional comments: Pedal edema on right leg. Tenderness to palpation on right leg. Difficult to feel pedal pulses bilaterally. Wound on right hallux in the lateral aspect. Wound on right 2nd toe medial aspect. Feet cool to the touch bilaterally - Neurological Exam Neurological exam: Alert, CN II-XII Intact, Oriented x3 - Psychiatric Exam Psychiatric exam: Normal Affect, Normal Mood - Skin Skin Exam: Dry Objective - Vital Signs/Intake and Output Vital Signs (last 24 hours): Temp Pulse Resp BP Pulse Ox 98.1 F 75 20 117/66 96 10/11/17 00:00 10/11/17 00:00 10/11/17 00:00 10/11/17 00:00 10/11/17 00:00 Intake and Output: 10/11/17 10/11/17 06:59 18:59 Intake Total 950 Balance 950 - Medications Medications: Current Medications Albuterol (Ventolin Hfa 90 Mcg/Actuation (8 G)) 2 puff IH RBID [facility] Last Admin: 10/10/17 19:45 Dose: 2 puff Aspirin (Ecotrin) 81 mg PO DAILY [facility] Last Admin: 10/10/17 09:16 Dose: 81 mg Bacitracin (Bacitracin) 1 ea TOP DAILY [facility] Last Admin: 10/10/17 08:47 Dose: 1 ea Clonazepam (Klonopin) 0.5 mg PO HS [facility] Last Admin: 10/10/17 21:03 Dose: 0.5 mg Clopidogrel Bisulfate (Plavix) 75 mg PO DAILY [facility] Last Admin: 10/10/17 09:16 Dose: 75 mg Enalapril Maleate (Vasotec) 20 mg PO DAILY [facility] Last Admin: 10/10/17 09:18 Dose: 20 mg Famotidine (Pepcid) 20 mg PO BID [facility] Last Admin: 10/10/17 17:37 Dose: 20 mg Heparin Sodium (Porcine) (Heparin) 5,000 units SC Q8 [facility] Last Admin: 10/11/17 05:33 Dose: 5,000 units Ciprofloxacin (Cipro 400mg/200ml Dsw) 400 mg in 200 mls @ 133 mls/hr IVPB Q12H [facility] Last Admin: 10/10/17 21:03 Dose: 133 mls/hr Ketorolac Tromethamine (Toradol) 15 mg IVP Q8 PRN PRN Reason: Pain, moderate (4-7) Last Admin: 10/11/17 06:15 Dose: 15 mg Morphine Sulfate (Morphine) 4 mg IV Q6H PRN PRN Reason: Pain, severe (8-10) Last Admin: 10/10/17 12:11 Dose: 4 mg Kxuyp-0-Awcm Ethyl Esters (Lovaza) 1 gm PO DAILY [facility] Last Admin: 10/10/17 09:16 Dose: 1 gm - Labs Labs: 10/11/17 08:18 10/10/17 08:13 PT 12.5 SECONDS (9.7-12.2) H 10/06/17 17:01 INR 1.1 10/06/17 17:01 APTT 32 SECONDS (21-34) D 10/07/17 19:40 Assessment and Plan - Assessment and Plan (Free Text) Assessment: Right foot wounds with Hx of PVD Vascular surgery consult with Dr. Mallory CTA with femoral runoff: Right Popliteal artery occlusion. Mild stenosis of right proximal and distal SFA. Resumed home ASA 81 mg PO daily Resumed home Plavix 75 mg PO daily f/u wound cultures ordered by podiatry Podiatry started Ancef 1 gm Q8H Morphine 4 mg IV Q6 prn pain Toradol 15 mg IV Q8 prn pain Per surgical team, unable to perform balloon angioplasty, will need a femoral- popliteal bypass and require cardiac clearance History of HTN Resumed home Enalapril 20 mg PO daily Prophylactic Measure Protonix 40 mg PO daily Resumed home Ventolin and Lovaza Heparin 5000 units SC Q8H Prophylactic Measure 82 F for Vascular bypass surgery Hx of HTN Stress test negative for Ischemia ECHO: Normal EF. Mild to moderate valvular regurgitations No cardiac symptoms as per the patient and her Son (Limited ambulation) There is no high cardiac risk feature noted. Likely Cardiac risk is moderate or Intermediate (3-5%) If benefit outweighs the risk please proceed with the surgery Will follow. thank you
--- NOTE | 2017-10-11 08:32 | CP.PCM.PN ---
Subjective - Date & Time of Evaluation Date of Evaluation: 10/09/17 Time of Evaluation: 09:00 - Subjective Subjective: Patient seen and evaluated Fr stress test today Review of Systems - Constitutional Constitutional: absent: Chills, Fever - EENT Eyes: absent: Change in Vision Ears: absent: Decreased Hearing Nose/Mouth/Throat: absent: Nasal Congestion - Cardiovascular Cardiovascular: absent: Chest Pain - Respiratory Respiratory: absent: Dyspnea - Gastrointestinal Gastrointestinal: Constipation. absent: Abdominal Pain, Diarrhea, Nausea, Vomiting - Genitourinary Genitourinary: absent: Dysuria - Musculoskeletal Musculoskeletal: Other (right leg pain) - Integumentary Integumentary: Wounds (right foot) - Neurological Neurological: Dizziness (intermittent) - Psychiatric Psychiatric: Change in Appetite (appetite will vary) - Endocrine Endocrine: absent: Palpitations Physical Exam - Constitutional Appears: No Acute Distress - Head Exam Head Exam: ATRAUMATIC, NORMOCEPHALIC - Eye Exam Eye Exam: EOMI, PERRL - ENT Exam ENT Exam: Mucous Membranes Moist - Respiratory Exam Respiratory Exam: Clear to Auscultation Bilateral, NORMAL BREATHING PATTERN. absent: Rales, Rhonchi, Wheezes - Cardiovascular Exam Cardiovascular Exam: REGULAR RHYTHM, +S1, +S2 - GI/Abdominal Exam GI & Abdominal Exam: Distended, Normal Bowel Sounds, Soft. absent: Firm, Guarding, Tenderness - Extremities Exam Additional comments: Pedal edema on right leg. Tenderness to palpation on right leg. Difficult to feel pedal pulses bilaterally. Wound on right hallux in the lateral aspect. Wound on right 2nd toe medial aspect. Feet cool to the touch bilaterally - Neurological Exam Neurological exam: Alert, CN II-XII Intact, Oriented x3 - Psychiatric Exam Psychiatric exam: Normal Affect, Normal Mood - Skin Skin Exam: Dry Objective - Vital Signs/Intake and Output Vital Signs (last 24 hours): Temp Pulse Resp BP Pulse Ox 98.1 F 75 20 117/66 96 10/11/17 00:00 10/11/17 00:00 10/11/17 00:00 10/11/17 00:00 10/11/17 00:00 Intake and Output: 10/11/17 10/11/17 06:59 18:59 Intake Total 950 Balance 950 - Medications Medications: Current Medications Albuterol (Ventolin Hfa 90 Mcg/Actuation (8 G)) 2 puff IH RBID [facility] Last Admin: 10/10/17 19:45 Dose: 2 puff Aspirin (Ecotrin) 81 mg PO DAILY [facility] Last Admin: 10/10/17 09:16 Dose: 81 mg Bacitracin (Bacitracin) 1 ea TOP DAILY [facility] Last Admin: 10/10/17 08:47 Dose: 1 ea Clonazepam (Klonopin) 0.5 mg PO HS [facility] Last Admin: 10/10/17 21:03 Dose: 0.5 mg Clopidogrel Bisulfate (Plavix) 75 mg PO DAILY [facility] Last Admin: 10/10/17 09:16 Dose: 75 mg Enalapril Maleate (Vasotec) 20 mg PO DAILY [facility] Last Admin: 10/10/17 09:18 Dose: 20 mg Famotidine (Pepcid) 20 mg PO BID [facility] Last Admin: 10/10/17 17:37 Dose: 20 mg Heparin Sodium (Porcine) (Heparin) 5,000 units SC Q8 [facility] Last Admin: 10/11/17 05:33 Dose: 5,000 units Ciprofloxacin (Cipro 400mg/200ml Dsw) 400 mg in 200 mls @ 133 mls/hr IVPB Q12H [facility] Last Admin: 10/10/17 21:03 Dose: 133 mls/hr Ketorolac Tromethamine (Toradol) 15 mg IVP Q8 PRN PRN Reason: Pain, moderate (4-7) Last Admin: 10/11/17 06:15 Dose: 15 mg Morphine Sulfate (Morphine) 4 mg IV Q6H PRN PRN Reason: Pain, severe (8-10) Last Admin: 10/10/17 12:11 Dose: 4 mg Cfydn-0-Truz Ethyl Esters (Lovaza) 1 gm PO DAILY [facility] Last Admin: 10/10/17 09:16 Dose: 1 gm - Labs Labs: 10/11/17 08:18 10/10/17 08:13 PT 12.5 SECONDS (9.7-12.2) H 10/06/17 17:01 INR 1.1 10/06/17 17:01 APTT 32 SECONDS (21-34) D 10/07/17 19:40 Assessment and Plan - Assessment and Plan (Free Text) Assessment: Right foot wounds with Hx of PVD Vascular surgery consult with Dr. Mallory CTA with femoral runoff: Right Popliteal artery occlusion. Mild stenosis of right proximal and distal SFA. Resumed home ASA 81 mg PO daily Resumed home Plavix 75 mg PO daily f/u wound cultures ordered by podiatry Podiatry started Ancef 1 gm Q8H Morphine 4 mg IV Q6 prn pain Toradol 15 mg IV Q8 prn pain Per surgical team, unable to perform balloon angioplasty, will need a femoral- popliteal bypass and require cardiac clearance Echo and Lexiscan stress test ordered. Stress test today History of HTN Resumed home Enalapril 20 mg PO daily Prophylactic Measure Protonix 40 mg PO daily Resumed home Ventolin and Lovaza Heparin 5000 units SC Q8H
[2017-10-11] MEDS: Ciprofloxacin 400mg/200ml D5W 400 MG/200 ML BAG IVPB SCH ×2 (08:33→19:02)
[2017-10-11 08:47] LABS: ALB/GLOB RATIO 1.2 (1.0-2.1); ALBUMIN 3.1 g/dL (3.5-5.0); ALT/SGPT 22 U/L (9-52); AST/SGOT 24 U/L (14-36); BLOOD UREA NITROGEN 11 mg/dL (7-17); CALCIUM 8.5 mg/dl (8.6-10.4); GFR AFRICAN-AMERICAN > 60; GFR NON-AFRICAN AMERICAN > 60
[2017-10-11] MEDS ORDERED: Potassium Chloride 20 mEq/15 ml LIQ UD PO ONE (09:30)
[2017-10-11] MEDS: Omega-3-Acid Ethyl Esters 1 GM Cap PO SCH (09:36)
[2017-10-11] MEDS: Bacitracin 500 Units/gm Oint Foilpak UD TOP SCH (09:38)
--- NOTE | 2017-10-11 11:29 | CP.PCM.PN ---
Subjective - Date & Time of Evaluation Date of Evaluation: 10/11/17 Time of Evaluation: 11:28 - Subjective Subjective: no vein for use as bypass this significantly worsens prognosis will plan bypass Thursday Objective - Vital Signs/Intake and Output Vital Signs (last 24 hours): Temp Pulse Resp BP Pulse Ox 98.8 F 79 20 132/70 97 10/11/17 08:50 10/11/17 08:50 10/11/17 08:50 10/11/17 09:37 10/11/17 08:50 Intake and Output: 10/11/17 10/11/17 06:59 18:59 Intake Total 950 Balance 950 - Medications Medications: Current Medications Albuterol (Ventolin Hfa 90 Mcg/Actuation (8 G)) 2 puff IH RBID [facility] Last Admin: 10/10/17 19:45 Dose: 2 puff Aspirin (Ecotrin) 81 mg PO DAILY [facility] Last Admin: 10/11/17 09:37 Dose: 81 mg Bacitracin (Bacitracin) 1 ea TOP DAILY [facility] Last Admin: 10/11/17 09:38 Dose: 1 ea Clonazepam (Klonopin) 0.5 mg PO HS [facility] Last Admin: 10/10/17 21:03 Dose: 0.5 mg Clopidogrel Bisulfate (Plavix) 75 mg PO DAILY [facility] Last Admin: 10/11/17 09:37 Dose: 75 mg Enalapril Maleate (Vasotec) 20 mg PO DAILY [facility] Last Admin: 10/11/17 09:37 Dose: 20 mg Famotidine (Pepcid) 20 mg PO BID [facility] Last Admin: 10/11/17 09:37 Dose: 20 mg Heparin Sodium (Porcine) (Heparin) 5,000 units SC Q8 [facility] Last Admin: 10/11/17 05:33 Dose: 5,000 units Ciprofloxacin (Cipro 400mg/200ml Dsw) 400 mg in 200 mls @ 133 mls/hr IVPB Q12H [facility] Last Admin: 10/11/17 08:33 Dose: 133 mls/hr Ketorolac Tromethamine (Toradol) 15 mg IVP Q8 PRN PRN Reason: Pain, moderate (4-7) Last Admin: 10/11/17 06:15 Dose: 15 mg Morphine Sulfate (Morphine) 4 mg IV Q6H PRN PRN Reason: Pain, severe (8-10) Last Admin: 10/11/17 08:38 Dose: 4 mg Lyfoa-4-Wfmh Ethyl Esters (Lovaza) 1 gm PO DAILY [facility] Last Admin: 10/11/17 09:36 Dose: 1 gm - Labs Labs: 10/11/17 08:18 10/11/17 08:18 PT 12.5 SECONDS (9.7-12.2) H 10/06/17 17:01 INR 1.1 10/06/17 17:01 APTT 32 SECONDS (21-34) D 10/07/17 19:40
--- NOTE | 2017-10-11 12:57 | CP.PCM.PN ---
Subjective - Date & Time of Evaluation Date of Evaluation: 10/11/17 Time of Evaluation: 12:50 - Subjective Subjective: Podiatry Consult Note for Dr. Macias 82 y/o female seen at bedside for infected right hallux and 2nd digit ulcerations. Pt's son says she will be getting her vascular procedure done in the next couple of days. Pt admits to very mild pain in the right first and second toes. States the medicines are helping with pain control. Denies F/C/N/V/ CP/SOB at present. Objective - Vital Signs/Intake and Output Vital Signs (last 24 hours): Temp Pulse Resp BP Pulse Ox 98.8 F 79 20 132/70 97 10/11/17 08:50 10/11/17 08:50 10/11/17 08:50 10/11/17 09:37 10/11/17 08:50 Intake and Output: 10/11/17 10/11/17 06:59 18:59 Intake Total 950 Balance 950 - Medications Medications: Current Medications Albuterol (Ventolin Hfa 90 Mcg/Actuation (8 G)) 2 puff IH RBID [facility] Last Admin: 10/10/17 19:45 Dose: 2 puff Aspirin (Ecotrin) 81 mg PO DAILY [facility] Last Admin: 10/11/17 09:37 Dose: 81 mg Bacitracin (Bacitracin) 1 ea TOP DAILY [facility] Last Admin: 10/11/17 09:38 Dose: 1 ea Clonazepam (Klonopin) 0.5 mg PO HS [facility] Last Admin: 10/10/17 21:03 Dose: 0.5 mg Clopidogrel Bisulfate (Plavix) 75 mg PO DAILY [facility] Last Admin: 10/11/17 09:37 Dose: 75 mg Enalapril Maleate (Vasotec) 20 mg PO DAILY [facility] Last Admin: 10/11/17 09:37 Dose: 20 mg Famotidine (Pepcid) 20 mg PO BID [facility] Last Admin: 10/11/17 09:37 Dose: 20 mg Heparin Sodium (Porcine) (Heparin) 5,000 units SC Q8 [facility] Last Admin: 10/11/17 05:33 Dose: 5,000 units Ciprofloxacin (Cipro 400mg/200ml Dsw) 400 mg in 200 mls @ 133 mls/hr IVPB Q12H [facility] Last Admin: 10/11/17 08:33 Dose: 133 mls/hr Ketorolac Tromethamine (Toradol) 15 mg IVP Q8 PRN PRN Reason: Pain, moderate (4-7) Last Admin: 10/11/17 06:15 Dose: 15 mg Morphine Sulfate (Morphine) 4 mg IV Q6H PRN PRN Reason: Pain, severe (8-10) Last Admin: 10/11/17 08:38 Dose: 4 mg Wmesv-9-Dsno Ethyl Esters (Lovaza) 1 gm PO DAILY [facility] Last Admin: 10/11/17 09:36 Dose: 1 gm - Labs Labs: 10/11/17 08:18 10/11/17 08:18 PT 12.5 SECONDS (9.7-12.2) H 10/06/17 17:01 INR 1.1 10/06/17 17:01 APTT 32 SECONDS (21-34) D 10/07/17 19:40 - Constitutional Appears: Well, Non-toxic, No Acute Distress - Extremities Exam Additional comments: Vasc: DP and PT non-palpable B/L, temperature cool to cool proximal to distal, localized edema noted to the 1st and 2nd digit, CFT delayed to digits Ortho: Moderate pain with palpation to 1st and 2nd digit to the right. Neuro: gross and protective sensation diminished Derm: Resolved superficial ulceration, with atrophic ischemic dusky skin noted to noted to the lateral aspect of right hallux and medial aspect of 2nd digit. No noted open wound base with no necrosis noted. Absent incurvated toenail borders appreciated to the hallux or right 2nd digit - Neurological Exam Neurological Exam: Alert, Awake, Oriented x3 - Psychiatric Exam Psychiatric exam: Normal Affect, Normal Mood Assessment and Plan - Assessment and Plan (Free Text) Assessment: 82 y/o female with infected non-healing right hallux and 2nd digit ulceration, secondary to PVD Plan: Patient examined and evaluated Discussed plan in detail with attending Dr. Macias Labs and vitals reviewed- afebrile, WBC 8.0 Per surgery, unable to perform balloon angioplasty - pt will need fem-pop bypass and requires cardiac clx -planned for tomorrow or Thursday At present, will continue with local wound care Dressed with bacitracin and DSD Continue multipodus boots at all time Podiatry will continue to follow patient while in house
--- NOTE | 2017-10-11 13:16 | CP.PCM.PN ---
Subjective - Date & Time of Evaluation Date of Evaluation: 10/11/17 Time of Evaluation: 06:55 - Subjective Subjective: Vascular Surgery- Dr. Mallory Patient seen and examined at bedside this AM. No acute complaints. Dressing on RLE C/D/I. pain well controlled. Denies F/C/ CP/SOB N/V/D Objective - Vital Signs/Intake and Output Vital Signs (last 24 hours): Temp Pulse Resp BP Pulse Ox 98.8 F 79 20 132/70 97 10/11/17 08:50 10/11/17 08:50 10/11/17 08:50 10/11/17 09:37 10/11/17 08:50 Intake and Output: 10/11/17 10/11/17 06:59 18:59 Intake Total 950 Balance 950 - Medications Medications: Current Medications Albuterol (Ventolin Hfa 90 Mcg/Actuation (8 G)) 2 puff IH RBID [facility] Last Admin: 10/10/17 19:45 Dose: 2 puff Aspirin (Ecotrin) 81 mg PO DAILY [facility] Last Admin: 10/11/17 09:37 Dose: 81 mg Bacitracin (Bacitracin) 1 ea TOP DAILY [facility] Last Admin: 10/11/17 09:38 Dose: 1 ea Clonazepam (Klonopin) 0.5 mg PO HS [facility] Last Admin: 10/10/17 21:03 Dose: 0.5 mg Clopidogrel Bisulfate (Plavix) 75 mg PO DAILY [facility] Last Admin: 10/11/17 09:37 Dose: 75 mg Enalapril Maleate (Vasotec) 20 mg PO DAILY [facility] Last Admin: 10/11/17 09:37 Dose: 20 mg Famotidine (Pepcid) 20 mg PO BID [facility] Last Admin: 10/11/17 09:37 Dose: 20 mg Heparin Sodium (Porcine) (Heparin) 5,000 units SC Q8 [facility] Last Admin: 10/11/17 05:33 Dose: 5,000 units Ciprofloxacin (Cipro 400mg/200ml Dsw) 400 mg in 200 mls @ 133 mls/hr IVPB Q12H [facility] Last Admin: 10/11/17 08:33 Dose: 133 mls/hr Ketorolac Tromethamine (Toradol) 15 mg IVP Q8 PRN PRN Reason: Pain, moderate (4-7) Last Admin: 10/11/17 06:15 Dose: 15 mg Morphine Sulfate (Morphine) 4 mg IV Q6H PRN PRN Reason: Pain, severe (8-10) Last Admin: 10/11/17 08:38 Dose: 4 mg Cyazb-3-Wkkv Ethyl Esters (Lovaza) 1 gm PO DAILY [facility] Last Admin: 10/11/17 09:36 Dose: 1 gm - Labs Labs: 10/11/17 08:18 10/11/17 08:18 PT 12.5 SECONDS (9.7-12.2) H 10/06/17 17:01 INR 1.1 10/06/17 17:01 APTT 32 SECONDS (21-34) D 10/07/17 19:40 - Constitutional Appears: Non-toxic, No Acute Distress - Head Exam Head Exam: ATRAUMATIC - Eye Exam Eye Exam: EOMI. absent: Scleral icterus - Respiratory Exam Respiratory Exam: NORMAL BREATHING PATTERN. absent: Accessory Muscle Use, Respiratory Distress - Cardiovascular Exam Cardiovascular Exam: +S1, +S2. absent: Bradycardia, Tachycardia - GI/Abdominal Exam GI & Abdominal Exam: Soft. absent: Distended, Firm, Guarding, Rigid, Tenderness - Back Exam Additional comments: RLE dressing C/D/I - Neurological Exam Neurological Exam: Alert, Awake, Oriented x3 - Psychiatric Exam Psychiatric exam: Normal Affect - Skin Skin Exam: Intact, Warm Assessment and Plan - Assessment and Plan (Free Text) Assessment: 82F PVD s/p Angio Plan: - Type and Cross - will order cryo-vein for bypass this week - tentative OR for bypass on Thursday - discussed w/ Dr. Mohamud Paula PGY1
--- NOTE | 2017-10-11 19:42 | CP.PCM.PN ---
Subjective - Date & Time of Evaluation Date of Evaluation: 10/11/17 Time of Evaluation: 08:30 - Subjective Subjective: Patient seen and evaluated Denies chest pain and dyspnea Objective - Vital Signs/Intake and Output Vital Signs (last 24 hours): Temp Pulse Resp BP Pulse Ox 98.5 F 82 20 151/77 H 95 10/11/17 16:00 10/11/17 16:00 10/11/17 16:00 10/11/17 16:00 10/11/17 16:00 Intake and Output: 10/11/17 10/12/17 18:59 06:59 Intake Total 680 Balance 680 - Medications Medications: Current Medications Albuterol (Ventolin Hfa 90 Mcg/Actuation (8 G)) 2 puff IH RBID [facility] Last Admin: 10/10/17 19:45 Dose: 2 puff Aspirin (Ecotrin) 81 mg PO DAILY [facility] Last Admin: 10/11/17 09:37 Dose: 81 mg Bacitracin (Bacitracin) 1 ea TOP DAILY [facility] Last Admin: 10/11/17 09:38 Dose: 1 ea Clonazepam (Klonopin) 0.5 mg PO HS [facility] Last Admin: 10/10/17 21:03 Dose: 0.5 mg Clopidogrel Bisulfate (Plavix) 75 mg PO DAILY [facility] Last Admin: 10/11/17 09:37 Dose: 75 mg Enalapril Maleate (Vasotec) 20 mg PO DAILY [facility] Last Admin: 10/11/17 09:37 Dose: 20 mg Famotidine (Pepcid) 20 mg PO BID [facility] Last Admin: 10/11/17 18:00 Dose: 20 mg Heparin Sodium (Porcine) (Heparin) 5,000 units SC Q8 [facility] Last Admin: 10/11/17 14:47 Dose: 5,000 units Ciprofloxacin (Cipro 400mg/200ml Dsw) 400 mg in 200 mls @ 133 mls/hr IVPB Q12H [facility] Last Admin: 10/11/17 19:02 Dose: 133 mls/hr Morphine Sulfate (Morphine) 4 mg IV Q6H PRN PRN Reason: Pain, severe (8-10) Last Admin: 10/11/17 14:47 Dose: 4 mg Tfcfm-1-Rpco Ethyl Esters (Lovaza) 1 gm PO DAILY [facility] Last Admin: 10/11/17 09:36 Dose: 1 gm Pneumococcal Polyvalent Vaccine (Pneumovax 23 Vaccine) 0.5 ml IM .ONCE ONE Stop: 10/12/17 10:01 - Labs Labs: 10/11/17 08:18 10/11/17 08:18 PT 12.5 SECONDS (9.7-12.2) H 10/06/17 17:01 INR 1.1 10/06/17 17:01 APTT 32 SECONDS (21-34) D 10/07/17 19:40
[2017-10-11] MEDS: Albuterol HFA 90 mcg/actuation (8 g) IH SCH (21:01)
[2017-10-12] MEDS: Ciprofloxacin 400mg/200ml D5W 400 MG/200 ML BAG IVPB SCH ×2 (08:50→20:24)
[2017-10-12] MEDS: Omega-3-Acid Ethyl Esters 1 GM Cap PO SCH (09:38)
[2017-10-12] MEDS ORDERED: Influenza Vaccine 60 mcg/0.5 mL SYR (4YR UP) IM ONE (10:00)
[2017-10-12] MEDS ORDERED: Pneumococcal 23-Valent Vaccine IM ONE (10:00)
[2017-10-12] MEDS ORDERED: Oxycodone/Acetaminophen 5/325 mg Tab PO PRN (12:25)
--- NOTE | 2017-10-12 14:05 | CP.PCM.PN ---
Subjective - Date & Time of Evaluation Date of Evaluation: 10/12/17 Time of Evaluation: 06:45 - Subjective Subjective: Vascular surgery progress note for Dr. Debbie Marin, PGY-1 Pt S & E at bedside this AM. Pt reports some continued Right LE pain overnight. No acute events per nursing. Dressing to RLE- C/D/I. Objective - Vital Signs/Intake and Output Vital Signs (last 24 hours): Temp Pulse Resp BP Pulse Ox 98.5 F 88 20 133/78 95 10/12/17 08:16 10/12/17 08:16 10/12/17 08:16 10/12/17 09:38 10/12/17 08:16 Intake and Output: 10/12/17 10/12/17 06:59 18:59 Intake Total 600 250 Balance 600 250 - Medications Medications: Current Medications Albuterol (Ventolin Hfa 90 Mcg/Actuation (8 G)) 2 puff IH RBID [facility] Last Admin: 10/11/17 21:01 Dose: 2 puff Aspirin (Ecotrin) 81 mg PO DAILY [facility] Last Admin: 10/12/17 09:37 Dose: 81 mg Bacitracin (Bacitracin) 1 ea TOP DAILY [facility] Last Admin: 10/11/17 09:38 Dose: 1 ea Clonazepam (Klonopin) 0.5 mg PO HS [facility] Last Admin: 10/11/17 21:18 Dose: 0.5 mg Clopidogrel Bisulfate (Plavix) 75 mg PO DAILY [facility] Last Admin: 10/12/17 09:38 Dose: 75 mg Enalapril Maleate (Vasotec) 20 mg PO DAILY [facility] Last Admin: 10/12/17 09:38 Dose: 20 mg Famotidine (Pepcid) 20 mg PO BID [facility] Last Admin: 10/12/17 09:38 Dose: 20 mg Heparin Sodium (Porcine) (Heparin) 5,000 units SC Q8 [facility] Last Admin: 10/12/17 05:44 Dose: 5,000 units Ciprofloxacin (Cipro 400mg/200ml Dsw) 400 mg in 200 mls @ 133 mls/hr IVPB Q12H [facility] Last Admin: 10/12/17 08:50 Dose: 133 mls/hr Morphine Sulfate (Morphine) 4 mg IV Q6H PRN PRN Reason: Pain, severe (8-10) Last Admin: 10/12/17 05:41 Dose: 4 mg Enwty-2-Lqgd Ethyl Esters (Lovaza) 1 gm PO DAILY [facility] Last Admin: 10/12/17 09:38 Dose: 1 gm Oxycodone/Acetaminophen (Percocet 5/325 Mg Tab) 1 tab PO Q4H PRN PRN Reason: Pain, moderate (4-7) Stop: 10/15/17 12:26 - Labs Labs: 10/11/17 08:18 10/11/17 08:18 PT 12.5 SECONDS (9.7-12.2) H 10/06/17 17:01 INR 1.1 10/06/17 17:01 APTT 32 SECONDS (21-34) D 10/07/17 19:40 - Constitutional Appears: Non-toxic, No Acute Distress - Head Exam Head Exam: ATRAUMATIC, NORMAL INSPECTION, NORMOCEPHALIC - Eye Exam Eye Exam: EOMI, Normal appearance - ENT Exam ENT Exam: Mucous Membranes Moist, Normal Exam - Respiratory Exam Respiratory Exam: NORMAL BREATHING PATTERN - Cardiovascular Exam Cardiovascular Exam: REGULAR RHYTHM, +S1, +S2 - GI/Abdominal Exam GI & Abdominal Exam: Soft - Neurological Exam Neurological Exam: Alert, Awake, Oriented x3 - Psychiatric Exam Psychiatric exam: Normal Affect, Normal Mood - Skin Skin Exam: Dry, Intact, Normal Color, Warm Assessment and Plan - Assessment and Plan (Free Text) Assessment: 82F w/PVD s/p Angio, requiring re-vascularization Plan: Plan for OR tomorrow-Right Lower extremity bypass with [place]o-vein NPO at [place] Hold anticoagulation at [place] Type and crossed Cont local wound care DW attending Tania, PGY-1
[2017-10-12] MEDS: Bacitracin 500 Units/gm Oint Foilpak UD TOP SCH (14:55)
--- NOTE | 2017-10-12 16:34 | CP.PCM.PN ---
<Nancy Davalos - Last Filed: 10/12/17 16:31> Subjective - Date & Time of Evaluation Date of Evaluation: 10/12/17 Time of Evaluation: 08:00 - Subjective Subjective: Patient seen and examined at bedside. No acute events overnight. Patient resting comfortably in bed with no new complaints at this time. Patient still ahving some pain in the foot but otherwise denies ROS. Objective - Vital Signs/Intake and Output Vital Signs (last 24 hours): Temp Pulse Resp BP Pulse Ox 98.5 F 88 20 133/78 95 10/12/17 08:16 10/12/17 08:16 10/12/17 08:16 10/12/17 09:38 10/12/17 08:16 Intake and Output: 10/12/17 10/12/17 06:59 18:59 Intake Total 600 1050 Balance 600 1050 - Medications Medications: Current Medications Albuterol (Ventolin Hfa 90 Mcg/Actuation (8 G)) 2 puff IH RBID [facility] Last Admin: 10/11/17 21:01 Dose: 2 puff Aspirin (Ecotrin) 81 mg PO DAILY [facility] Last Admin: 10/12/17 09:37 Dose: 81 mg Bacitracin (Bacitracin) 1 ea TOP DAILY [facility] Last Admin: 10/12/17 14:55 Dose: 1 ea Clonazepam (Klonopin) 0.5 mg PO HS [facility] Last Admin: 10/11/17 21:18 Dose: 0.5 mg Clopidogrel Bisulfate (Plavix) 75 mg PO DAILY [facility] Last Admin: 10/12/17 09:38 Dose: 75 mg Enalapril Maleate (Vasotec) 20 mg PO DAILY [facility] Last Admin: 10/12/17 09:38 Dose: 20 mg Famotidine (Pepcid) 20 mg PO BID [facility] Last Admin: 10/12/17 09:38 Dose: 20 mg Heparin Sodium (Porcine) (Heparin) 5,000 units SC Q8 [facility] Last Admin: 10/12/17 14:55 Dose: 5,000 units Ciprofloxacin (Cipro 400mg/200ml Dsw) 400 mg in 200 mls @ 133 mls/hr IVPB Q12H [facility] Last Admin: 10/12/17 08:50 Dose: 133 mls/hr Morphine Sulfate (Morphine) 4 mg IV Q6H PRN PRN Reason: Pain, severe (8-10) Last Admin: 10/12/17 14:58 Dose: 4 mg Sminn-9-Rwgo Ethyl Esters (Lovaza) 1 gm PO DAILY [facility] Last Admin: 10/12/17 09:38 Dose: 1 gm Oxycodone/Acetaminophen (Percocet 5/325 Mg Tab) 1 tab PO Q4H PRN PRN Reason: Pain, moderate (4-7) Stop: 10/15/17 12:26 - Labs Labs: 10/11/17 08:18 10/11/17 08:18 PT 12.5 SECONDS (9.7-12.2) H 10/06/17 17:01 INR 1.1 10/06/17 17:01 APTT 32 SECONDS (21-34) D 10/07/17 19:40 - Constitutional Appears: Non-toxic, No Acute Distress - Head Exam Head Exam: NORMAL INSPECTION - Eye Exam Eye Exam: Normal appearance, PERRL - ENT Exam ENT Exam: Mucous Membranes Moist - Respiratory Exam Respiratory Exam: Clear to Ausculation Bilateral, NORMAL BREATHING PATTERN. absent: Rales, Rhonchi, Wheezes - Cardiovascular Exam Cardiovascular Exam: RRR, +S1, +S2 - GI/Abdominal Exam GI & Abdominal Exam: Soft, Normal Bowel Sounds. absent: Distended, Tenderness - Extremities Exam Extremities Exam: Tenderness (right foot ). absent: Calf Tenderness, Pedal Edema Additional comments: right foot bandaged, c/d/i - Neurological Exam Neurological Exam: Alert, Awake, Oriented x3 - Psychiatric Exam Psychiatric exam: Normal Affect, Normal Mood - Skin Skin Exam: Dry, Intact, Normal Color, Warm Assessment and Plan - Assessment and Plan (Free Text) Plan: Disposition: Patient scheduled for femoral-popliteal bypass tomorrow (10/13). NPO past midnight. Right foot wounds with Hx of PVD Vascular surgery consult with Dr. Mallory, help appreciated Since patient sent in by Dr. Kasper who does not come to this hospital, we have consulted his colleague Dr. 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 Resumed home ASA 81 mg PO daily Resumed home Plavix 75 mg PO daily Wound cultures ordered by podiatry grew pseudomonas Cipro 400 mg IV Q12H Continue Morphine 4 mg IV Q6 prn pain Continue Toradol 15 mg IV Q8 prn pain Per surgical team, unable to perform balloon angioplasty, will need a femoral- popliteal bypass (planned for 10/13/17) and require cardiac clearance Administrative Office Manager Dr. López consulted, help appreciated Archana stress test negative Echo showed EF 55-60%, hypertensive heart disease, and diastolic dysfunction Moderate to intermediate cardiac risk History of Hypertension Resumed home Enalapril 20 mg PO daily Prophylactic Measure Heart Healthy Diet Protonix 40 mg PO daily Resumed home Ventolin and Lovaza Heparin 5000 units SC Q8H <Shirin Lake - Last Filed: 10/12/17 18:13> Objective - Vital Signs/Intake and Output Vital Signs (last 24 hours): Temp Pulse Resp BP Pulse Ox 97.8 F 76 20 151/66 H 97 10/12/17 16:47 10/12/17 16:47 10/12/17 16:47 10/12/17 16:47 10/12/17 16:47 Intake and Output: 10/12/17 10/12/17 06:59 18:59 Intake Total 600 1050 Balance 600 1050 - Medications Medications: Current Medications Albuterol (Ventolin Hfa 90 Mcg/Actuation (8 G)) 2 puff IH RBID [facility] Last Admin: 10/11/17 21:01 Dose: 2 puff Aspirin (Ecotrin) 81 mg PO DAILY [facility] Last Admin: 10/12/17 09:37 Dose: 81 mg Bacitracin (Bacitracin) 1 ea TOP DAILY [facility] Last Admin: 10/12/17 14:55 Dose: 1 ea Clonazepam (Klonopin) 0.5 mg PO HS [facility] Last Admin: 10/11/17 21:18 Dose: 0.5 mg Clopidogrel Bisulfate (Plavix) 75 mg PO DAILY [facility] Last Admin: 10/12/17 09:38 Dose: 75 mg Enalapril Maleate (Vasotec) 20 mg PO DAILY [facility] Last Admin: 10/12/17 09:38 Dose: 20 mg Famotidine (Pepcid) 20 mg PO BID [facility] Last Admin: 10/12/17 09:38 Dose: 20 mg Heparin Sodium (Porcine) (Heparin) 5,000 units SC Q8 [facility] Last Admin: 10/12/17 14:55 Dose: 5,000 units Ciprofloxacin (Cipro 400mg/200ml Dsw) 400 mg in 200 mls @ 133 mls/hr IVPB Q12H [facility] Last Admin: 10/12/17 08:50 Dose: 133 mls/hr Ketorolac Tromethamine (Toradol) 30 mg IVP Q6 PRN PRN Reason: Pain, moderate (4-7) Morphine Sulfate (Morphine) 4 mg IV Q6H PRN PRN Reason: Pain, severe (8-10) Last Admin: 10/12/17 14:58 Dose: 4 mg Cvhlk-9-Jmnn Ethyl Esters (Lovaza) 1 gm PO DAILY [facility] Last Admin: 10/12/17 09:38 Dose: 1 gm - Labs Labs: 10/11/17 08:18 10/11/17 08:18 PT 12.5 SECONDS (9.7-12.2) H 10/06/17 17:01 INR 1.1 10/06/17 17:01 APTT 32 SECONDS (21-34) D 10/07/17 19:40 Attending/Attestation - Attestation I have personally seen and examined this patient.: Yes I have fully participated in the care of the patient.: Yes I have reviewed all pertinent clinical information, including history, physical exam and plan: Yes Notes (Text): Seen and examined complaining of foot pain Percocet ordered for pain d/w Son at bedside Patient is going to have bypass surgery tomorow/with Cryo vein Discussed with the resident I agree with the documentation of the assessment and the plan
[2017-10-12] MEDS: Albuterol HFA 90 mcg/actuation (8 g) IH SCH (19:46)
--- NOTE | 2017-10-12 21:48 | CP.PCM.PN ---
Subjective - Date & Time of Evaluation Date of Evaluation: 10/12/17 Time of Evaluation: 11:30 - Subjective Subjective: Patient seen and evaluated no new events noted Objective - Vital Signs/Intake and Output Vital Signs (last 24 hours): Temp Pulse Resp BP Pulse Ox 97.8 F 76 20 151/66 H 97 10/12/17 16:47 10/12/17 16:47 10/12/17 16:47 10/12/17 16:47 10/12/17 16:47 Intake and Output: 10/12/17 10/13/17 18:59 06:59 Intake Total 1050 Balance 1050 - Medications Medications: Current Medications Albuterol (Ventolin Hfa 90 Mcg/Actuation (8 G)) 2 puff IH RBID [facility] Last Admin: 10/12/17 19:46 Dose: 2 puff Aspirin (Ecotrin) 81 mg PO DAILY [facility] Last Admin: 10/12/17 09:37 Dose: 81 mg Bacitracin (Bacitracin) 1 ea TOP DAILY [facility] Last Admin: 10/12/17 14:55 Dose: 1 ea Clonazepam (Klonopin) 0.5 mg PO HS [facility] Last Admin: 10/12/17 20:47 Dose: 0.5 mg Clopidogrel Bisulfate (Plavix) 75 mg PO DAILY [facility] Last Admin: 10/12/17 09:38 Dose: 75 mg Enalapril Maleate (Vasotec) 20 mg PO DAILY [facility] Last Admin: 10/12/17 09:38 Dose: 20 mg Famotidine (Pepcid) 20 mg PO BID [facility] Last Admin: 10/12/17 18:49 Dose: 20 mg Heparin Sodium (Porcine) (Heparin) 5,000 units SC Q8 [facility] Last Admin: 10/12/17 14:55 Dose: 5,000 units Ciprofloxacin (Cipro 400mg/200ml Dsw) 400 mg in 200 mls @ 133 mls/hr IVPB Q12H [facility] Last Admin: 10/12/17 20:24 Dose: 133 mls/hr Ketorolac Tromethamine (Toradol) 30 mg IVP Q6 PRN PRN Reason: Pain, moderate (4-7) Morphine Sulfate (Morphine) 4 mg IV Q6H PRN PRN Reason: Pain, severe (8-10) Last Admin: 10/12/17 20:45 Dose: 4 mg Jbpfe-6-Wjgg Ethyl Esters (Lovaza) 1 gm PO DAILY [facility] Last Admin: 10/12/17 09:38 Dose: 1 gm - Labs Labs: 10/11/17 08:18 10/11/17 08:18 PT 12.5 SECONDS (9.7-12.2) H 10/06/17 17:01 INR 1.1 10/06/17 17:01 APTT 32 SECONDS (21-34) D 10/07/17 19:40
[2017-10-13] MEDS: Albuterol HFA 90 mcg/actuation (8 g) IH SCH (07:40)
[2017-10-13] MEDS: Ciprofloxacin 400mg/200ml D5W 400 MG/200 ML BAG IVPB SCH ×2 (08:13→20:22)
[2017-10-13 08:18] LABS: INR 1.2
[2017-10-13 08:20] LABS: BASO % 0.3 % (0.0-2.0); EOS # 0.3 K/uL (0.0-0.7); HEMOGLOBIN 11.6 g/dL (11.0-16.0); LYMPH # 1.1 K/uL (1.0-4.3); LYMPH % 10.2 % (20.0-40.0); MEAN CORPUSCULAR HEMOGLOBIN 32.2 pg (27.0-31.0); MEAN CORPUSCULAR HGB CONC 34.2 g/dL (33.0-37.0); MEAN PLATELET VOLUME 9.3 fL (7.2-11.7); MONO # 0.8 K/uL (0.0-0.8); MONO % 7.6 % (0.0-10.0); NEUT # 8.3 K/uL (1.8-7.0); NEUT % 78.9 % (50.0-75.0); RBC 3.61 Mil/uL (3.80-5.20); RED CELL DISTRIBUTION WIDTH 14.6 % (11.5-14.5); WHITE BLOOD COUNT 10.5 K/uL (4.8-10.8)
[2017-10-13 08:32] LABS: ALB/GLOB RATIO 1.2 (1.0-2.1); ALBUMIN 3.3 g/dL (3.5-5.0); ALT/SGPT 26 U/L (9-52); AST/SGOT 19 U/L (14-36); BLOOD UREA NITROGEN 9 mg/dL (7-17); CALCIUM 8.6 mg/dl (8.6-10.4); GFR AFRICAN-AMERICAN > 60; GFR NON-AFRICAN AMERICAN > 60
--- NOTE | 2017-10-13 08:57 | CP.PCM.PN ---
<Nancy Davalos - Last Filed: 10/13/17 09:40> Subjective - Date & Time of Evaluation Date of Evaluation: 10/13/17 Time of Evaluation: 08:56 - Subjective Subjective: Patient seen and examined at bedside. Patient resting comfortably in bed with no new complaints at this time. Patient is NPO since midnight for fem-pop bypass this morning. Patient denies any new complaints at this time and is only having pain in the right foot. Objective - Vital Signs/Intake and Output Vital Signs (last 24 hours): Temp Pulse Resp BP Pulse Ox 98.2 F 91 H 20 109/77 96 10/13/17 08:31 10/13/17 08:31 10/13/17 08:31 10/13/17 08:31 10/13/17 08:31 Intake and Output: 10/13/17 10/13/17 06:59 18:59 Intake Total 650 0 Balance 650 0 - Medications Medications: Current Medications Albuterol (Ventolin Hfa 90 Mcg/Actuation (8 G)) 2 puff IH RBID [facility] Last Admin: 10/12/17 19:46 Dose: 2 puff Aspirin (Ecotrin) 81 mg PO DAILY [facility] Last Admin: 10/12/17 09:37 Dose: 81 mg Bacitracin (Bacitracin) 1 ea TOP DAILY [facility] Last Admin: 10/12/17 14:55 Dose: 1 ea Clonazepam (Klonopin) 0.5 mg PO HS [facility] Last Admin: 10/12/17 22:28 Dose: Not Given Clopidogrel Bisulfate (Plavix) 75 mg PO DAILY [facility] Last Admin: 10/12/17 09:38 Dose: 75 mg Enalapril Maleate (Vasotec) 20 mg PO DAILY [facility] Last Admin: 10/12/17 09:38 Dose: 20 mg Famotidine (Pepcid) 20 mg PO BID [facility] Last Admin: 10/12/17 18:49 Dose: 20 mg Heparin Sodium (Porcine) (Heparin) 5,000 units SC Q8 [facility] Last Admin: 10/12/17 22:27 Dose: 5,000 units Ciprofloxacin (Cipro 400mg/200ml Dsw) 400 mg in 200 mls @ 133 mls/hr IVPB Q12H [facility] Last Admin: 10/13/17 08:13 Dose: 133 mls/hr Ketorolac Tromethamine (Toradol) 30 mg IVP Q6 PRN PRN Reason: Pain, moderate (4-7) Morphine Sulfate (Morphine) 4 mg IV Q6H PRN PRN Reason: Pain, severe (8-10) Last Admin: 10/13/17 08:12 Dose: 4 mg Xwhey-7-[id number] Ethyl Esters (Lovaza) 1 gm PO DAILY [facility] Last Admin: 10/12/17 09:38 Dose: 1 gm - Labs Labs: 10/13/17 07:55 10/13/17 07:55 PT 13.0 SECONDS (9.7-12.2) H 10/13/17 07:55 INR 1.2 10/13/17 07:55 APTT 35 SECONDS (21-34) H 10/13/17 07:55 - Additional Findings Additional findings: - Constitutional Appears: Non-toxic, No Acute Distress - Head Exam Head Exam: NORMAL INSPECTION - Eye Exam Eye Exam: Normal appearance, PERRL - ENT Exam ENT Exam: Mucous Membranes Moist - Respiratory Exam Respiratory Exam: Clear to Ausculation Bilateral, NORMAL BREATHING PATTERN. absent: Rales, Rhonchi, Wheezes - Cardiovascular Exam Cardiovascular Exam: RRR, +S1, +S2 - GI/Abdominal Exam GI & Abdominal Exam: Soft, Normal Bowel Sounds. absent: Distended, Tenderness - Extremities Exam Extremities Exam: Tenderness (right foot ). absent: Calf Tenderness, Pedal Edema Additional comments: right foot bandaged, c/d/i - Neurological Exam Neurological Exam: Alert, Awake, Oriented x3 - Psychiatric Exam Psychiatric exam: Normal Affect, Normal Mood - Skin Skin Exam: Dry, Intact, Normal Color, Warm Assessment and Plan - Assessment and Plan (Free Text) Plan: Disposition: Patient scheduled for femoral-popliteal bypass today (10/13). Right foot wounds with Hx of PVD Vascular surgery consult with Dr. Mallory, help appreciated * Unable to perform balloon angioplasty - femoral-popliteal bypass planned for [employer] Level Project Coordinator Dr. López consulted for cardiac clearance, help appreciated * Lexiscan stress test negative * Echo showed EF 55-60%, hypertensive heart disease, and diastolic dysfunction * Moderate to intermediate cardiac risk Since patient sent in by Dr. Kasper who does not come to this hospital, we have consulted his colleague Dr. 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 Resumed home ASA 81 mg PO daily Resumed home Plavix 75 mg PO daily Wound cultures ordered by podiatry grew pseudomonas Cipro 400 mg IV Q12H Continue Morphine 4 mg IV Q6 prn pain Continue Toradol 15 mg IV Q8 prn pain History of Hypertension Resumed home Enalapril 20 mg PO daily Prophylactic Measure Heart Healthy Diet Protonix 40 mg PO daily Resumed home Ventolin and Lovaza Heparin 5000 units SC Q8H <Shirin [place] - Last Filed: 10/14/17 11:56> Objective - Vital Signs/Intake and Output Vital Signs (last 24 hours): Temp Pulse Resp BP Pulse Ox 99.5 F 94 H 17 146/42 L 100 10/13/17 15:53 10/13/17 16:37 10/13/17 16:37 10/13/17 16:37 10/13/17 16:37 Intake and Output: 10/13/17 10/13/17 06:59 18:59 Intake Total 650 325 Output Total 900 Balance 650 -575 - Medications Medications: Current Medications Albuterol (Ventolin Hfa 90 Mcg/Actuation (8 G)) 2 puff IH RBID [facility] Last Admin: 10/13/17 07:40 Dose: 1 puff Aspirin (Ecotrin) 81 mg PO DAILY [facility] Last Admin: 10/13/17 09:16 Dose: Not Given Bacitracin (Bacitracin) 1 ea TOP DAILY [facility] Last Admin: 10/13/17 10:05 Dose: 1 ea Clonazepam (Klonopin) 0.5 mg PO HS [facility] Last Admin: 10/12/17 22:28 Dose: Not Given Clopidogrel Bisulfate (Plavix) 75 mg PO DAILY [facility] Last Admin: 10/13/17 09:16 Dose: Not Given Enalapril Maleate (Vasotec) 20 mg PO DAILY [facility] Last Admin: 10/13/17 10:05 Dose: 20 mg Famotidine (Pepcid) 20 mg PO BID [facility] Last Admin: 10/13/17 09:16 Dose: Not Given Heparin Sodium (Porcine) (Heparin) 5,000 units SC Q8 [facility] Last Admin: 10/12/17 22:27 Dose: 5,000 units Hydromorphone HCl (Dilaudid) 0.5 mg IVP Q5M PRN PRN Reason: Pain, moderate (4-7) Stop: 10/13/17 17:56 Last Admin: 10/13/17 16:25 Dose: 0.5 mg Ciprofloxacin (Cipro 400mg/200ml Dsw) 400 mg in 200 mls @ 133 mls/hr IVPB Q12H [facility] Last Admin: 10/13/17 08:13 Dose: 133 mls/hr Sodium Chloride (Sodium Chloride 0.9%) 1,000 mls @ 90 mls/hr IV .Q11H7M [facility] Ketorolac Tromethamine (Toradol) 30 mg IVP Q6 PRN PRN Reason: Pain, moderate (4-7) Morphine Sulfate (Morphine) 4 mg IV Q6H PRN PRN Reason: Pain, severe (8-10) Last Admin: 10/13/17 08:12 Dose: 4 mg Khyhb-2-Jxze Ethyl Esters (Lovaza) 1 gm PO DAILY [facility] Last Admin: 10/13/17 09:16 Dose: Not Given Ondansetron HCl (Zofran Inj) 4 mg IVP ONCE PRN PRN Reason: Nausea/Vomiting Stop: 10/13/17 17:56 - Labs Labs: 10/13/17 14:45 10/13/17 07:55 PT 13.0 SECONDS (9.7-12.2) H 10/13/17 07:55 INR 1.2 10/13/17 07:55 APTT 35 SECONDS (21-34) H 10/13/17 07:55 Attending/Attestation - Attestation I have personally seen and examined this patient.: Yes I have fully participated in the care of the patient.: Yes I have reviewed all pertinent clinical information, including history, physical exam and plan: Yes Notes (Text): Seen and examined Patient was resting without complain this morning Discussed with her son at bedside Patient has no complain I agree with the documentation of the resident's assessment and the plan
[2017-10-13] MEDS: Omega-3-Acid Ethyl Esters 1 GM Cap PO SCH (09:16)
[2017-10-13] MEDS: Bacitracin 500 Units/gm Oint Foilpak UD TOP SCH (10:05)
[2017-10-13] MEDS ORDERED: Iodixanol 320 MG/ML 200 ML BOTTLE IV ONE (11:38)
[2017-10-13] MEDS ORDERED: Nitroglycerin 50mg in D5W 50 MG/250 ML BOTTLE IV ONE (11:44)
[2017-10-13] MEDS ORDERED: Lactated Ringer's 1,000 ML IV ONE ×3 (11:45→15:53)
[2017-10-13] MEDS ORDERED: ceFAZolin 1 GM in Sodium Chloride 0.9% 100 ML IVPB ONE (11:50)
[2017-10-13] MEDS ORDERED: Calcium Chloride 1000 mg/10 ml Syringe IV PRN (12:00)
[2017-10-13] MEDS ORDERED: HEPARIN-NS 5,000 UNITS/500 ML 10,000 UNIT/1,000 ML BAG IV ONE (12:22)
[2017-10-13] MEDS ORDERED: Sodium Chloride 0.9% 1,000 ML IV ONE (12:45)
[2017-10-13] MEDS ORDERED: HYDROmorphone 0.5 mg/0.5 ml ISec IVP PRN (14:37)
[2017-10-13 14:48] LABS: HEMOGLOBIN 10.3 g/dL (11.0-16.0)
[2017-10-13] MEDS ORDERED: Midazolam 2 MG/2 ML VIAL ONE (15:31)
--- NOTE | 2017-10-13 16:03 | PCM.SURG1 ---
Surgeon's Initial Post Op Note - Surgeon's Notes Surgeon: Dr. Mallory Epic Analyst: PGY1, Alana PGY1 Type of Anesthesia: General Endo Pre-Operative Diagnosis: Peripheral vascular disease Operative Findings: see op note Post-Operative Diagnosis: as above Operation Performed: Right popliteal to posterior tibial bypass w/ cryovein; intraoperative arteriogram Specimen/Specimens Removed: none Estimated Blood Loss: EBL {In ML}: 300 Blood Products Given: PRBC Drains Used: No Drains Date of Surgery/Procedure: 10/13/17 Time of Surgery/Procedure: 16:03
[2017-10-13] MEDS: HYDROmorphone 0.5 mg/0.5 ml ISec IVP PRN ×3 (16:25→19:16)
--- NOTE | 2017-10-13 16:44 | RAD ---
PROCEDURE: HISTORY: As Above COMPARISON: None TECHNIQUE: Total fluoroscopic time utilized during the procedure: 15.4 seconds. Total dose 0.43 mGy cm squared FINDINGS: Submitted images from the current procedure: 5 Please refer to the physician's notes performing the procedure. IMPRESSION: Less than 1 hour fluoroscopic time utilized during performance of the procedure
--- NOTE | 2017-10-13 17:36 | RAD ---
HISTORY: s/p TLC placement COMPARISON: Chest x-ray performed 04/20/17 TECHNIQUE: Chest, one view. FINDINGS: Examination limited by habitus. Right IJ approach central venous catheter extends the cavoatrial junction. Ring-like calcification re-identified in the region of the right peritracheal region, possibly vascular in etiology. LUNGS: No focal consolidation. Tiny left upper lobe probable calcified granuloma. Please note that chest x-ray has limited sensitivity for the detection of pulmonary masses. PLEURA: No significant pleural effusion identified. No definite pneumothorax . CARDIOVASCULAR: Heart size appears top normal. Atherosclerotic calcifications of the aortic knob. OSSEOUS STRUCTURES: Degenerative changes. VISUALIZED UPPER ABDOMEN: Unremarkable. OTHER FINDINGS: None. IMPRESSION: Right IJ approach central venous catheter extends the cavoatrial junction. Additional findings as above.
[2017-10-13] MEDS ORDERED: HYDROmorphone 0.5 mg/0.5 ml ISec ONE (19:16)
[2017-10-13] MEDS: Sodium Chloride 0.9% 1,000 ML IV SCH (19:30)
[2017-10-13 21:58] LABS: HEMOGLOBIN 11.8 g/dL (11.0-16.0); MEAN CELL VOLUME 93.2 fL (81.0-99.0); MEAN CORPUSCULAR HEMOGLOBIN 31.7 pg (27.0-31.0); MEAN PLATELET VOLUME 8.7 fL (7.2-11.7); RBC 3.71 Mil/uL (3.80-5.20); RED CELL DISTRIBUTION WIDTH 14.9 % (11.5-14.5); WHITE BLOOD COUNT 13.5 K/uL (4.8-10.8)
--- NOTE | 2017-10-13 23:13 | CP.PCM.CON ---
History of Present Illness - History of Present Illness History of Present Illness: 82 y/o female with PMHx PVD, HTN, arthritis, Raynaud's phenomenon admitted with complaint of right leg pain. Patient sent by her stone chimney mason Dr. Tye Kasper for evaluation of right first and second toe infection and right popliteal occlusion.Patient had Right popliteal to posterior tibial bypass today.C/o pain right leg Review of Systems - Constitutional Constitutional: Weakness. absent: Fever - EENT Eyes: absent: Itchy Eyes Ears: absent: Dizziness Nose/Mouth/Throat: absent: Sore Throat, Neck Mass - Cardiovascular Cardiovascular: Leg Edema. 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 USES CANE TO AMBULATE. - HEENT Hx HEENT Problems: Yes Hx Cataracts: Yes (BILAT.) - RENAL Hx Chronic Kidney Disease: No - ENDOCRINE/METABOLIC Hx Endocrine Disorders: No - HEMATOLOGICAL/ONCOLOGICAL Hx Blood Disorders: No - INTEGUMENTARY Hx Dermatological Problems: Yes Other/Comment: HX: MASS UPPER BACK-NO CANCER - MUSCULOSKELETAL/RHEUMATOLOGICAL Hx Arthritis: Yes Hx Fractures: Yes Hx Osteoporosis: Yes - GASTROINTESTINAL Hx Gall Bladder Disease: Yes - GENITOURINARY/GYNECOLOGICAL Hx Genitourinary Disorders: No - PSYCHIATRIC Hx Substance Use: No - SURGICAL HISTORY Hx Cholecystectomy: Yes - ANESTHESIA Hx Anesthesia: Yes Hx Anesthesia Reactions: No Hx Malignant Hyperthermia: No Meds Allergies/Adverse Reactions: Allergies Allergy/AdvReac Type Severity Reaction Status Date / Time No Known Allergies Allergy Verified 10/06/17 14:32 - Medications Medications: Current Medications Albuterol (Ventolin Hfa 90 Mcg/Actuation (8 G)) 2 puff IH RBID [facility] Last Admin: 10/13/17 07:40 Dose: 1 puff Aspirin (Ecotrin) 81 mg PO DAILY [facility] Last Admin: 10/13/17 09:16 Dose: Not Given Bacitracin (Bacitracin) 1 ea TOP DAILY [facility] Last Admin: 10/13/17 10:05 Dose: 1 ea Clonazepam (Klonopin) 0.5 mg PO HS [facility] Last Admin: 10/13/17 22:33 Dose: 0.5 mg Clopidogrel Bisulfate (Plavix) 75 mg PO DAILY [facility] Last Admin: 10/13/17 09:16 Dose: Not Given Enalapril Maleate (Vasotec) 20 mg PO DAILY [facility] Last Admin: 10/13/17 10:05 Dose: 20 mg Famotidine (Pepcid) 20 mg PO BID [facility] Last Admin: 10/13/17 22:15 Dose: 20 mg Heparin Sodium (Porcine) (Heparin) 5,000 units SC Q8 [facility] Last Admin: 10/12/17 22:27 Dose: 5,000 units Ciprofloxacin (Cipro 400mg/200ml Dsw) 400 mg in 200 mls @ 133 mls/hr IVPB Q12H [facility] Last Admin: 10/13/17 20:22 Dose: 200 mls Sodium Chloride (Sodium Chloride 0.9%) 1,000 mls @ 90 mls/hr IV .Q11H7M [facility] Last Admin: 10/13/17 19:30 Dose: 300 mls Ketorolac Tromethamine (Toradol) 30 mg IVP Q6 PRN PRN Reason: Pain, moderate (4-7) Morphine Sulfate (Morphine) 4 mg IV Q6H PRN PRN Reason: Pain, severe (8-10) Last Admin: 10/13/17 22:12 Dose: 4 mg Feflq-6-Ojep Ethyl Esters (Lovaza) 1 gm PO DAILY [facility] Last Admin: 10/13/17 09:16 Dose: Not Given Physical Exam - Constitutional Appears: No Acute Distress - Head Exam Head Exam: ATRAUMATIC, NORMAL INSPECTION, NORMOCEPHALIC - Eye Exam Eye Exam: EOMI, Normal appearance, PERRL - ENT Exam ENT Exam: Mucous Membranes Moist - Neck Exam Neck exam: Positive for: Normal Inspection Additional comments: Right IJ TLC - Respiratory Exam Respiratory Exam: Clear to Auscultation Bilateral - Cardiovascular Exam Cardiovascular Exam: REGULAR RHYTHM - GI/Abdominal Exam GI & Abdominal Exam: Normal Bowel Sounds, Soft. absent: Tenderness - Extremities Exam Additional comments: right leg in dressing.1st and 2nd toes with blackish discoloration left foot cool to touch - Neurological Exam Neurological exam: Alert, Oriented x3 Results - Vital Signs Recent Vital Signs: Last Vital Signs Temp 98.2 F 10/13/17 22:00 Pulse 114 H 10/13/17 23:00 Resp 13 10/13/17 23:00 BP 120/48 L 10/13/17 23:00 Pulse Ox 100 10/13/17 23:00 - Labs Result Diagrams: 10/13/17 21:51 10/13/17 07:55 Labs: Laboratory Results - last 24 hr 10/13/17 10/13/17 10/13/17 07:55 07:55 07:55 WBC 10.5 RBC 3.61 L Hgb 11.6 Hct 34.0 MCV 94.0 MCH 32.2 H MCHC 34.2 RDW 14.6 H Plt Count 165 MPV 9.3 Neut % (Auto) 78.9 H Lymph % (Auto) 10.2 L [place] % (Auto) 7.6 Eos % (Auto) 3.0 Baso % (Auto) 0.3 Neut # (Auto) 8.3 H Lymph # (Auto) 1.1 [place] # (Auto) 0.8 Eos # (Auto) 0.3 Baso # (Auto) 0.0 PT 13.0 H INR 1.2 APTT 35 H Sodium Potassium Chloride Carbon Dioxide Anion Gap BUN Creatinine Est GFR ( Amer) Est GFR (Non-Af Amer) Random Glucose Calcium Total Bilirubin AST ALT Alkaline Phosphatase Total Protein Albumin Globulin Albumin/Globulin Ratio Blood Type O POSITIVE Antibody Screen Negative 10/13/17 10/13/17 10/13/17 07:55 14:45 21:51 WBC 13.5 H RBC 3.71 L Hgb 10.3 L 11.8 Hct 30.1 L 34.6 MCV 93.2 MCH 31.7 H MCHC 34.0 RDW 14.9 H Plt Count 177 MPV 8.7 Neut % (Auto) Lymph % (Auto) [place] % (Auto) Eos % (Auto) Baso % (Auto) Neut # (Auto) Lymph # (Auto) [place] # (Auto) Eos # (Auto) Baso # (Auto) PT INR APTT Sodium 134 Potassium 3.9 Chloride 98 Carbon Dioxide 29 Anion Gap 11 BUN 9 Creatinine 0.5 L Est GFR ( Amer) > 60 Est GFR (Non-Af Amer) > 60 Random Glucose 113 H Calcium 8.6 Total Bilirubin 0.6 AST 19 ALT 26 Alkaline Phosphatase 66 Total Protein 6.2 L Albumin 3.3 L Globulin 2.8 Albumin/Globulin Ratio 1.2 Blood Type Antibody Screen - Imaging and Cardiology Chest x-ray Status: Image reviewed by me, Report reviewed by me Assessment & Plan - Assessment and Plan (Free Text) Assessment: 1.PVD s/p Right popliteal to posterior tibial bypass on plavix and aspirin antibiotics,analgesics 2.HTN- controlled with meds 3.Right toe infection on antibiotics
[2017-10-14] MEDS ORDERED: Metoprolol 1 mg/ml Inj IVP ONE (00:14)
--- NOTE | 2017-10-14 03:15 | OP ---
PROCEDURE DATE: 10/13/2017 PREOPERATIVE DIAGNOSIS: Gangrenous ischemic ulceration, right foot. PROCEDURE: Right popliteal to posterior tibial bypass using reversed CryoVein with intraoperative arteriogram. SURGEON: Erasmo Mallory MD RUBBER MOLD MAKER: Dr. Paula. ANESTHESIOLOGIST: Rukhsana Crandall CRNA. INDICATIONS: The patient is an 82-year-old woman with multiple medical problems with failed intervention in the right popliteal artery, who now presents with an unable to be reconstructed endovascularly limb. OPERATIVE FINDINGS: 1. The completion anastomosis showed a satisfactory distal anastomosis. 2. The thigh or the proximal popliteal distal SFA, which was the origin of the vein graft was adequately calibered. 3. Extensive testing was done preoperatively identify a autologous vein, there is none to be seen in the vessels and checked in the leg. DESCRIPTION OF PROCEDURE: The patient was given general anesthesia. Intravenous antibiotics were administered. The leg was prepped and draped. Incision was made exposing the distal, superficial, femoral, proximal, popliteal artery. After exposure of the vessel, we then identified the posterior tibial artery above the ankle and through the subcutaneous tunnel anastomosed CryoVein using loupe magnification and heparin anticoagulation return of good control. After this had been completed, we had very good flow. We had to reinforce a few spots of both proximal and distal anastomosis with control of bleeding, which was very good. We then completed the operation with the blood loss of 300 mL and 1 L of packed cells was given. So the operation was carried out is right popliteal to posterior tibial bypass using reversed CryoVein with intraoperative arteriogram. Condition satisfactory. Erasmo Mallory Jr., MD cc: Solomon Kasper DPM
[2017-10-14] MEDS: Sodium Chloride 0.9% 1,000 ML IV SCH ×3 (03:20→17:31)
[2017-10-14 06:33] LABS: BASO % 0.2 % (0.0-2.0); EOS # 0.1 K/uL (0.0-0.7); EOS % 0.9 % (0.0-4.0); HEMOGLOBIN 11.1 g/dL (11.0-16.0); LYMPH % 8.4 % (20.0-40.0); MEAN CELL VOLUME 93.4 fL (81.0-99.0); MEAN CORPUSCULAR HEMOGLOBIN 31.7 pg (27.0-31.0); MEAN CORPUSCULAR HGB CONC 33.9 g/dL (33.0-37.0); MEAN PLATELET VOLUME 9.1 fL (7.2-11.7); MONO % 8.9 % (0.0-10.0); NEUT # 9.5 K/uL (1.8-7.0); NEUT % 81.6 % (50.0-75.0); PLATELET COUNT 167 K/uL (130-400); RBC 3.49 Mil/uL (3.80-5.20); RED CELL DISTRIBUTION WIDTH 14.7 % (11.5-14.5); WHITE BLOOD COUNT 11.6 K/uL (4.8-10.8)
[2017-10-14 07:03] LABS: ALB/GLOB RATIO 1.2 (1.0-2.1); ALBUMIN 2.9 g/dL (3.5-5.0); ALT/SGPT 23 U/L (9-52); AST/SGOT 18 U/L (14-36); BLOOD UREA NITROGEN 7 mg/dL (7-17); CALCIUM 8.3 mg/dl (8.6-10.4); GFR AFRICAN-AMERICAN > 60; GFR NON-AFRICAN AMERICAN > 60; MAGNESIUM 1.9 mg/dL (1.6-2.3)
[2017-10-14] MEDS: Albuterol HFA 90 mcg/actuation (8 g) IH SCH ×2 (08:26→20:00)
[2017-10-14 08:52] LABS: BANDS 1 % (0-2); EOSINOPHIL 1 % (0-4); LYMPHOCYTE 8 % (20-40); MONOCYTE 6 % (0-10); NEUTROPHIL 84 % (50-75); PLATELET ESTIMATE NORMAL (NORMAL); TOTAL CELLS COUNTED 100
[2017-10-14 08:53] LABS: LARGE PLATELETS PRESENT
[2017-10-14] MEDS: Ciprofloxacin 400mg/200ml D5W 400 MG/200 ML BAG IVPB SCH ×2 (09:00→20:54)
--- NOTE | 2017-10-14 09:49 | CP.PCM.PN ---
<Nancy Davalos - Last Filed: 10/14/17 13:56> Subjective - Date & Time of Evaluation Date of Evaluation: 10/14/17 Time of Evaluation: 09:37 - Subjective Subjective: Patient seen and examined at bedside. Patient resting comfortably in bed with no new complaints at this time other than being thirsty. Patient was transferred to the ICU after popliteal-posterior tibial bypass surgery yesterday for observation. Patient was somewhat confused overnight and pulled out her TLC but when I saw her this morning she was alert and oriented and asking for water. Patient denies pain at the surgery site, chest pain, SOB, abdominal pain, N&V. Objective - Vital Signs/Intake and Output Vital Signs (last 24 hours): Temp Pulse Resp BP Pulse Ox 98.9 F 107 H 15 135/56 L 100 10/14/17 04:00 10/14/17 06:00 10/14/17 06:00 10/14/17 07:00 10/14/17 06:00 Intake and Output: 10/14/17 10/14/17 06:59 18:59 Intake Total 630 90 Output Total 750 30 Balance -120 60 - Medications Medications: Current Medications Albuterol (Ventolin Hfa 90 Mcg/Actuation (8 G)) 2 puff IH RBID [facility] Last Admin: 10/14/17 08:26 Dose: Not Given Aspirin (Ecotrin) 81 mg PO DAILY [facility] Last Admin: 10/13/17 09:16 Dose: Not Given Bacitracin (Bacitracin) 1 ea TOP DAILY [facility] Last Admin: 10/13/17 10:05 Dose: 1 ea Clonazepam (Klonopin) 0.5 mg PO HS [facility] Last Admin: 10/13/17 22:33 Dose: 0.5 mg Clopidogrel Bisulfate (Plavix) 75 mg PO DAILY [facility] Last Admin: 10/13/17 09:16 Dose: Not Given Enalapril Maleate (Vasotec) 20 mg PO DAILY [facility] Last Admin: 10/13/17 10:05 Dose: 20 mg Famotidine (Pepcid) 20 mg PO BID [facility] Last Admin: 10/13/17 22:15 Dose: 20 mg Heparin Sodium (Porcine) (Heparin) 5,000 units SC Q8 [facility] Last Admin: 10/14/17 07:19 Dose: 5,000 units Heparin Sodium (Porcine) (Heparin) 5,000 units SC Q8 [facility] Last Admin: 10/14/17 07:20 Dose: Not Given Ciprofloxacin (Cipro 400mg/200ml Dsw) 400 mg in 200 mls @ 133 mls/hr IVPB Q12H [facility] Last Admin: 10/13/17 20:22 Dose: 200 mls Sodium Chloride (Sodium Chloride 0.9%) 1,000 mls @ 110 mls/hr IV .Q9H6M [facility] Last Admin: 10/14/17 07:21 Dose: 110 mls/hr Ketorolac Tromethamine (Toradol) 30 mg IVP Q6 PRN PRN Reason: Pain, moderate (4-7) Morphine Sulfate (Morphine) 4 mg IV Q6H PRN PRN Reason: Pain, severe (8-10) Last Admin: 10/13/17 22:12 Dose: 4 mg Fbrzs-5-[id number] Ethyl Esters (Lovaza) 1 gm PO DAILY [facility] Last Admin: 10/13/17 09:16 Dose: Not Given - Labs Labs: 10/14/17 06:24 10/14/17 06:23 PT 13.0 SECONDS (9.7-12.2) H 10/13/17 07:55 INR 1.2 10/13/17 07:55 APTT 35 SECONDS (21-34) H 10/13/17 07:55 - Additional Findings Additional findings: - Constitutional Appears: Non-toxic, No Acute Distress - Head Exam Head Exam: NORMAL INSPECTION - Eye Exam Eye Exam: Normal appearance, PERRL - ENT Exam ENT Exam: Mucous Membranes Moist - Respiratory Exam Respiratory Exam: Clear to Ausculation Bilateral, NORMAL BREATHING PATTERN. absent: Rales, Rhonchi, Wheezes - Cardiovascular Exam Cardiovascular Exam: RRR, +S1, +S2 - GI/Abdominal Exam GI & Abdominal Exam: Soft, Normal Bowel Sounds. absent: Distended, Tenderness - Extremities Exam Extremities Exam: Tenderness (right foot ). absent: Calf Tenderness, Pedal Edema Additional comments: pulses present on palpation and with doppler right leg and foot bandaged, c/d/i - Neurological Exam Neurological Exam: Alert, Awake, Oriented x3 - Psychiatric Exam Psychiatric exam: Normal Affect, Normal Mood - Skin Skin Exam: Dry, Intact, Normal Color, Warm Assessment and Plan - Assessment and Plan (Free Text) Plan: Disposition: Patient s/p popliteal-posterior tibial bypass POD#1 (10/13). Currently in ICU. Right foot wounds with Hx of PVD Vascular surgery consult with Dr. Mallory, help appreciated * Unable to perform balloon angioplasty - bypass done 10/13/[address] López consulted for cardiac clearance, help appreciated * Lexiscan stress test negative * Echo showed EF 55-60%, hypertensive heart disease, and diastolic dysfunction * Moderate to intermediate cardiac risk Since patient sent in by Dr. Kasper who does not come to this hospital, we have consulted his colleague Dr. 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 Resumed home ASA 81 mg PO daily Resumed home Plavix 75 mg PO daily Wound cultures ordered by podiatry grew pseudomonas Cipro 400 mg IV Q12H Continue Morphine 4 mg IV Q6 prn pain Continue Toradol 15 mg IV Q8 prn pain History of Hypertension Resumed home Enalapril 20 mg PO daily Prophylactic Measure Heart Healthy Diet NS @110 cc/h Protonix 40 mg PO daily Resumed home Ventolin and Lovaza Heparin 5000 units SC Q8H <Shirin [place] - Last Filed: 10/15/17 14:57> Objective - Vital Signs/Intake and Output Vital Signs (last 24 hours): Temp Pulse Resp BP Pulse Ox 97.7 F 89 20 105/73 96 10/14/17 12:00 10/14/17 16:00 10/14/17 16:00 10/14/17 16:00 10/14/17 16:00 Intake and Output: 10/14/17 10/15/17 18:59 06:59 Intake Total 1290 110 Output Total 910 Balance 380 110 - Medications Medications: Current Medications Albuterol (Ventolin Hfa 90 Mcg/Actuation (8 G)) 2 puff IH RBID [facility] Last Admin: 10/14/17 08:26 Dose: Not Given Aspirin (Ecotrin) 81 mg PO DAILY [facility] Last Admin: 10/14/17 10:01 Dose: 81 mg Bacitracin (Bacitracin) 1 ea TOP DAILY [facility] Last Admin: 10/14/17 13:08 Dose: 1 ea Clonazepam (Klonopin) 0.5 mg PO HS [facility] Last Admin: 10/13/17 22:33 Dose: 0.5 mg Clopidogrel Bisulfate (Plavix) 75 mg PO DAILY [facility] Last Admin: 10/14/17 10:01 Dose: 75 mg Enalapril Maleate (Vasotec) 20 mg PO DAILY [facility] Last Admin: 10/14/17 10:04 Dose: 20 mg Famotidine (Pepcid) 20 mg PO BID [facility] Last Admin: 10/14/17 17:33 Dose: 20 mg Heparin Sodium (Porcine) (Heparin) 5,000 units SC Q8 [facility] Last Admin: 10/14/17 14:00 Dose: 5,000 units Ciprofloxacin (Cipro 400mg/200ml Dsw) 400 mg in 200 mls @ 133 mls/hr IVPB Q12H [facility] Last Admin: 10/14/17 09:00 Dose: 133 mls/hr Sodium Chloride (Sodium Chloride 0.9%) 1,000 mls @ 110 mls/hr IV .Q9H6M [facility] Last Admin: 10/14/17 17:31 Dose: 110 mls/hr Acetaminophen (Ofirmev) 100 mls @ 100 mls/hr IV Q8H [facility] Stop: 10/15/17 16:16 Last Admin: 10/14/17 17:23 Dose: 100 mls/hr Morphine Sulfate (Morphine) 4 mg IV Q6H PRN PRN Reason: Pain, severe (8-10) Last Admin: 10/14/17 12:14 Dose: 4 mg Opsrc-2-Xfmo Ethyl Esters (Lovaza) 1 gm PO DAILY [facility] Last Admin: 10/14/17 10:01 Dose: 1 gm Oxycodone/Acetaminophen (Percocet 5/325 Mg Tab) 1 tab PO Q4H PRN PRN Reason: Pain, moderate (4-7) Stop: 10/17/17 10:28 - Labs Labs: 10/14/17 06:24 10/14/17 06:23 PT 13.0 SECONDS (9.7-12.2) H 10/13/17 07:55 INR 1.2 10/13/17 07:55 APTT 35 SECONDS (21-34) H 10/13/17 07:55 Attending/Attestation - Attestation I have personally seen and examined this patient.: Yes I have fully participated in the care of the patient.: Yes I have reviewed all pertinent clinical information, including history, physical exam and plan: Yes Notes (Text): Seen and examined,resting comfortable,s/p bypass surgery s/p Right popliteal to posterior tibial bypass w/ cryovein; intraoperative arteriogram d/w son at bedside d/w the resident I agree with the resident's documentation of the assessment and the plan
--- NOTE | 2017-10-14 09:49 | CP.PCM.PN ---
<Gita Castellanos - Last Filed: 10/14/17 16:34> Subjective - Date & Time of Evaluation Date of Evaluation: 10/14/17 Time of Evaluation: 09:45 - Subjective Subjective: Cardiology progress note for Dr. López, Patient was seen and examined at bedside this morning. Patient resting comfortably in bed with no new complaints at this time. Denies chest pain/ palpitations/SOB. Patient is S/P fem-pop bypass POD #1. Patient states she was a little confused this morning. Objective - Vital Signs/Intake and Output Vital Signs (last 24 hours): Temp Pulse Resp BP Pulse Ox 98.9 F 107 H 15 135/56 L 100 10/14/17 04:00 10/14/17 06:00 10/14/17 06:00 10/14/17 07:00 10/14/17 06:00 Intake and Output: 10/14/17 10/14/17 06:59 18:59 Intake Total 630 90 Output Total 750 30 Balance -120 60 - Medications Medications: Current Medications Albuterol (Ventolin Hfa 90 Mcg/Actuation (8 G)) 2 puff IH RBID [facility] Last Admin: 10/14/17 08:26 Dose: Not Given Aspirin (Ecotrin) 81 mg PO DAILY [facility] Last Admin: 10/13/17 09:16 Dose: Not Given Bacitracin (Bacitracin) 1 ea TOP DAILY [facility] Last Admin: 10/13/17 10:05 Dose: 1 ea Clonazepam (Klonopin) 0.5 mg PO HS [facility] Last Admin: 10/13/17 22:33 Dose: 0.5 mg Clopidogrel Bisulfate (Plavix) 75 mg PO DAILY [facility] Last Admin: 10/13/17 09:16 Dose: Not Given Enalapril Maleate (Vasotec) 20 mg PO DAILY [facility] Last Admin: 10/13/17 10:05 Dose: 20 mg Famotidine (Pepcid) 20 mg PO BID [facility] Last Admin: 10/13/17 22:15 Dose: 20 mg Heparin Sodium (Porcine) (Heparin) 5,000 units SC Q8 [facility] Last Admin: 10/14/17 07:19 Dose: 5,000 units Heparin Sodium (Porcine) (Heparin) 5,000 units SC Q8 [facility] Last Admin: 10/14/17 07:20 Dose: Not Given Ciprofloxacin (Cipro 400mg/200ml Dsw) 400 mg in 200 mls @ 133 mls/hr IVPB Q12H [facility] Last Admin: 10/13/17 20:22 Dose: 200 mls Sodium Chloride (Sodium Chloride 0.9%) 1,000 mls @ 110 mls/hr IV .Q9H6M [facility] Last Admin: 10/14/17 07:21 Dose: 110 mls/hr Ketorolac Tromethamine (Toradol) 30 mg IVP Q6 PRN PRN Reason: Pain, moderate (4-7) Morphine Sulfate (Morphine) 4 mg IV Q6H PRN PRN Reason: Pain, severe (8-10) Last Admin: 10/13/17 22:12 Dose: 4 mg Inmnb-5-Sfrj Ethyl Esters (Lovaza) 1 gm PO DAILY [facility] Last Admin: 10/13/17 09:16 Dose: Not Given - Labs Labs: 10/14/17 06:24 10/14/17 06:23 PT 13.0 SECONDS (9.7-12.2) H 10/13/17 07:55 INR 1.2 10/13/17 07:55 APTT 35 SECONDS (21-34) H 10/13/17 07:55 - Constitutional Appears: Non-toxic, No Acute Distress - Head Exam Head Exam: ATRAUMATIC, NORMAL INSPECTION - Eye Exam Eye Exam: EOMI, Normal appearance Pupil Exam: NORMAL ACCOMODATION - ENT Exam ENT Exam: Mucous Membranes Moist - Respiratory Exam Respiratory Exam: Clear to Ausculation Bilateral, NORMAL BREATHING PATTERN. absent: Respiratory Distress - Cardiovascular Exam Cardiovascular Exam: REGULAR RHYTHM, +S1, +S2 - GI/Abdominal Exam GI & Abdominal Exam: Soft. absent: Distended, Firm, Guarding, Tenderness - Extremities Exam Additional comments: right leg bandaged c/d/i - Neurological Exam Neurological Exam: Alert, Awake, CN II-XII Intact, Oriented x3 - Psychiatric Exam Psychiatric exam: Normal Affect, Normal Mood Assessment and Plan - Assessment and Plan (Free Text) Assessment: CAD Patient is S/P fem/pop bypass surgery POD #1. Aspirin/Plavix HTN Stress test negative for Ischemia ECHO: Normal EF. Mild to moderate valvular regurgitations No cardiac symptoms as per the patient and her Son (Limited ambulation) There is no high cardiac risk feature noted. Likely Cardiac risk is moderate or Intermediate (3-5%) If benefit outweighs the risk please proceed with the surgery Patient is to continue with Enalapril 20mg PO daily for htn management. BP controlled. All management discussed with Dr. López. <Tye López - Last Filed: 10/14/17 23:26> Objective - Vital Signs/Intake and Output Vital Signs (last 24 hours): Temp Pulse Resp BP Pulse Ox 97.7 F 89 20 105/73 96 10/14/17 12:00 10/14/17 16:00 10/14/17 16:00 10/14/17 16:00 10/14/17 16:00 Intake and Output: 10/14/17 10/15/17 18:59 06:59 Intake Total 1290 110 Output Total 910 Balance 380 110 - Medications Medications: Current Medications Albuterol (Ventolin Hfa 90 Mcg/Actuation (8 G)) 2 puff IH RBID [facility] Last Admin: 10/14/17 20:00 Dose: Not Given Aspirin (Ecotrin) 81 mg PO DAILY [facility] Last Admin: 10/14/17 10:01 Dose: 81 mg Bacitracin (Bacitracin) 1 ea TOP DAILY [facility] Last Admin: 10/14/17 13:08 Dose: 1 ea Clonazepam (Klonopin) 0.5 mg PO HS [facility] Last Admin: 10/14/17 21:00 Dose: 0.5 mg Clopidogrel Bisulfate (Plavix) 75 mg PO DAILY [facility] Last Admin: 10/14/17 10:01 Dose: 75 mg Enalapril Maleate (Vasotec) 20 mg PO DAILY [facility] Last Admin: 10/14/17 10:04 Dose: 20 mg Famotidine (Pepcid) 20 mg PO BID [facility] Last Admin: 10/14/17 17:33 Dose: 20 mg Heparin Sodium (Porcine) (Heparin) 5,000 units SC Q8 [facility] Last Admin: 10/14/17 21:00 Dose: 5,000 units Ciprofloxacin (Cipro 400mg/200ml Dsw) 400 mg in 200 mls @ 133 mls/hr IVPB Q12H [facility] Last Admin: 10/14/17 20:54 Dose: 133 mls/hr Sodium Chloride (Sodium Chloride 0.9%) 1,000 mls @ 110 mls/hr IV .Q9H6M [facility] Last Admin: 10/14/17 17:31 Dose: 110 mls/hr Acetaminophen (Ofirmev) 100 mls @ 100 mls/hr IV Q8H [facility] Stop: 10/15/17 16:16 Last Admin: 10/14/17 17:23 Dose: 100 mls/hr Morphine Sulfate (Morphine) 4 mg IV Q6H PRN PRN Reason: Pain, severe (8-10) Last Admin: 10/14/17 20:57 Dose: 4 mg Zhlyb-1-Nkjn Ethyl Esters (Lovaza) 1 gm PO DAILY [facility] Last Admin: 10/14/17 10:01 Dose: 1 gm Oxycodone/Acetaminophen (Percocet 5/325 Mg Tab) 1 tab PO Q4H PRN PRN Reason: Pain, moderate (4-7) Stop: 10/17/17 10:28 - Labs Labs: 10/14/17 06:24 10/14/17 06:23 PT 13.0 SECONDS (9.7-12.2) H 10/13/17 07:55 INR 1.2 10/13/17 07:55 APTT 35 SECONDS (21-34) H 10/13/17 07:55 Assessment and Plan - Assessment and Plan (Free Text) Plan: Patient seen and evaluated personally by me Plan of care as documented
[2017-10-14] MEDS: Omega-3-Acid Ethyl Esters 1 GM Cap PO SCH (10:01)
[2017-10-14] MEDS: Bacitracin 500 Units/gm Oint Foilpak UD TOP SCH ×2 (10:01→13:08)
[2017-10-14] MEDS ORDERED: Oxycodone/Acetaminophen 5/325 mg Tab PO PRN (10:27)
--- NOTE | 2017-10-14 12:14 | CP.CCUPN ---
<Mitch Bernabe - Last Filed: 10/14/17 16:03> CCU Subjective - Physician Review Events Since Last Encounter (Free Text): 10/14/17 12:12 Patient seen and examined at bedside. Per nursing no acute events overnight. Critical Care Time Spent (in minutes): 45 CCU Objective - Vital Signs / Intake & Output Vital Signs (Last 4 hours): Vital Signs BP 10/14/17 10:04 110/68 Intake and Output (Last 8hrs): Intake & Output 10/13/17 10/14/17 10/14/17 22:59 06:59 14:59 Intake Total 630 90 Output Total 1350 300 30 Balance -1350 330 60 Intake: Intake, IV Amount 630 90 Right IJ TLC Proximal 630 90 port Oral 0 0 Output: Urine 1350 300 30 Urethral (Cooney) 300 30 Other: # Bowel Movements 0 0 - Physical Exam Head: Positive for: Atraumatic, Normocephalic Pupils: Positive for: PERRL Extroacular Muscles: Positive for: EOMI Mouth: Positive for: Moist Mucous Membranes Neck: Positive for: Normal Range of Motion. Negative for: Meningeal Signs, JVD Respiratory/Chest: Positive for: Clear to Auscultation Cardiovascular: Positive for: Regular Rate and Rhythm, Normal S1, S2 Abdomen: Positive for: Normal Bowel Sounds Upper Extremity: Positive for: Normal Inspection. Negative for: Edema Lower Extremity: Positive for: Normal Inspection Psychiatric: Positive for: Alert - Medications Active Medications: Active Medications Generic Name Dose Route Start Last Admin Trade Name Freq PRN Reason Stop Dose Admin Albuterol 2 puff 10/07/17 08:00 10/14/17 08:26 Ventolin Hfa 90 Mcg/Actuation (8 G) IH Not Given RBID DENNIS Aspirin 81 mg 10/07/17 10:00 10/14/17 10:01 Ecotrin PO 81 mg DAILY DENNIS Administration Bacitracin 1 ea 10/07/17 10:10/14/17 10:01 Bacitracin TOP 1 ea DAILY DENNIS Administration Clonazepam 0.5 mg 10/06/17 22:00 10/13/17 22:33 Klonopin PO 0.5 mg HS DENNIS Administration Clopidogrel Bisulfate 75 mg 10/07/17 10:00 10/14/17 10:01 Plavix PO 75 mg DAILY DENNIS Administration Enalapril Maleate 20 mg 10/07/17 10:00 10/14/17 10:04 Vasotec PO 20 mg DAILY DENNIS Administration Famotidine 20 mg 10/07/17 10:00 10/14/17 10:01 Pepcid PO 20 mg BID DENNIS Administration Heparin Sodium (Porcine) 5,000 units 10/08/17 22:00 10/14/17 07:19 Heparin SC 5,000 units Q8 DENNIS Administration Heparin Sodium (Porcine) 5,000 units 10/14/17 06:00 10/14/17 07:20 Heparin SC Not Given Q8 DENNIS Ciprofloxacin 400 mg in 200 mls @ 133 mls/hr 10/09/17 20:00 10/14/17 09:00 Cipro 400mg/200ml Dsw IVPB 133 mls/hr Q12H DENNIS Administration Sodium Chloride 1,000 mls @ 110 mls/hr 10/14/17 06:43 10/14/17 07:21 Sodium Chloride 0.9% IV 110 mls/hr .Q9H6M DENNIS Administration Morphine Sulfate 4 mg 10/08/17 18:59 10/13/17 22:12 Morphine IV 4 mg Q6H PRN Administration Pain, severe (8-10) Pouqh-5-Dset Ethyl Esters 1 gm 10/07/17 10:00 10/14/17 10:01 Lovaza PO 1 gm DAILY DENNIS Administration Oxycodone/Acetaminophen 1 tab 10/14/17 10:27 Percocet 5/325 Mg Tab PO 10/17/17 10:28 Q4H PRN Pain, moderate (4-7) - Patient Studies Lab Studies: Lab Studies 10/14/17 10/14/17 10/13/17 Range/Units 06:24 06:23 21:51 WBC 11.6 H 13.5 H (4.8-10.8) K/uL RBC 3.49 L 3.71 L (3.80-5.20) Mil/uL Hgb 11.1 11.8 (11.0-16.0) g/dL Hct 32.6 L 34.6 (34.0-47.0) % MCV 93.4 93.2 (81.0-99.0) fL MCH 31.7 H 31.7 H (27.0-31.0) pg MCHC 33.9 34.0 (33.0-37.0) g/dL RDW 14.7 H 14.9 H (11.5-14.5) % Plt Count 167 177 (130-400) K/uL MPV 9.1 8.7 (7.2-11.7) fL Neut % (Auto) 81.6 H (50.0-75.0) % Lymph % (Auto) 8.4 L (20.0-40.0) % Gaines % (Auto) 8.9 (0.0-10.0) % Eos % (Auto) 0.9 (0.0-4.0) % Baso % (Auto) 0.2 (0.0-2.0) % Neut # (Auto) 9.5 H (1.8-7.0) K/uL Lymph # (Auto) 1.0 (1.0-4.3) K/uL Gaines # (Auto) 1.0 H (0.0-0.8) K/uL Eos # (Auto) 0.1 (0.0-0.7) K/uL Baso # (Auto) 0.0 (0.0-0.2) K/uL Neutrophils % (Manual) 84 H (50-75) % Band Neutrophils % 1 (0-2) % Lymphocytes % (Manual) 8 L (20-40) % Monocytes % (Manual) 6 (0-10) % Eosinophils % (Manual) 1 (0-4) % Platelet Estimate Normal (NORMAL) Large Platelets Present Sodium 136 (132-148) mmol/L Potassium 3.7 (3.6-5.2) mmol/L Chloride 101 (98-107) mmol/L Carbon Dioxide 29 (22-30) mmol/L Anion Gap 9 L (10-20) BUN 7 (7-17) mg/dL Creatinine 0.5 L (0.7-1.2) mg/dL Est GFR ( Amer) > 60 Est GFR (Non-Af Amer) > 60 Random Glucose 124 H (65-105) mg/dL Calcium 8.3 L (8.6-10.4) mg/dl Phosphorus 3.5 (2.5-4.5) mg/dL Magnesium 1.9 (1.6-2.3) mg/dL Total Bilirubin 0.5 (0.2-1.3) mg/dL AST 18 (14-36) U/L ALT 23 (9-52) U/L Alkaline Phosphatase 51 (38-126) U/L Total Protein 5.3 L (6.3-8.3) g/dL Albumin 2.9 L (3.5-5.0) g/dL Globulin 2.4 (2.2-3.9) gm/dL Albumin/Globulin Ratio 1.2 (1.0-2.1) Blood Type Antibody Screen 10/13/17 10/13/17 Range/Units 14:45 07:55 WBC (4.8-10.8) K/uL RBC (3.80-5.20) Mil/uL Hgb 10.3 L (11.0-16.0) g/dL Hct 30.1 L (34.0-47.0) % MCV (81.0-99.0) fL MCH (27.0-31.0) pg MCHC (33.0-37.0) g/dL RDW (11.5-14.5) % Plt Count (130-400) K/uL MPV (7.2-11.7) fL Neut % (Auto) (50.0-75.0) % Lymph % (Auto) (20.0-40.0) % Gaines % (Auto) (0.0-10.0) % Eos % (Auto) (0.0-4.0) % Baso % (Auto) (0.0-2.0) % Neut # (Auto) (1.8-7.0) K/uL Lymph # (Auto) (1.0-4.3) K/uL Gaines # (Auto) (0.0-0.8) K/uL Eos # (Auto) (0.0-0.7) K/uL Baso # (Auto) (0.0-0.2) K/uL Neutrophils % (Manual) (50-75) % Band Neutrophils % (0-2) % Lymphocytes % (Manual) (20-40) % Monocytes % (Manual) (0-10) % Eosinophils % (Manual) (0-4) % Platelet Estimate (NORMAL) Large Platelets Sodium (132-148) mmol/L Potassium (3.6-5.2) mmol/L Chloride (98-107) mmol/L Carbon Dioxide (22-30) mmol/L Anion Gap (10-20) BUN (7-17) mg/dL Creatinine (0.7-1.2) mg/dL Est GFR ( Amer) Est GFR (Non-Af Amer) Random Glucose (65-105) mg/dL Calcium (8.6-10.4) mg/dl Phosphorus (2.5-4.5) mg/dL Magnesium (1.6-2.3) mg/dL Total Bilirubin (0.2-1.3) mg/dL AST (14-36) U/L ALT (9-52) U/L Alkaline Phosphatase (38-126) U/L Total Protein (6.3-8.3) g/dL Albumin (3.5-5.0) g/dL Globulin (2.2-3.9) gm/dL Albumin/Globulin Ratio (1.0-2.1) Blood Type O POSITIVE Antibody Screen Negative Laboratory Results - last 24 hr 10/13/17 10/13/17 10/13/17 07:55 14:45 21:51 WBC 13.5 H RBC 3.71 L Hgb 10.3 L 11.8 Hct 30.1 L 34.6 MCV 93.2 MCH 31.7 H MCHC 34.0 RDW 14.9 H Plt Count 177 MPV 8.7 Neut % (Auto) Lymph % (Auto) Gaines % (Auto) Eos % (Auto) Baso % (Auto) Neut # (Auto) Lymph # (Auto) Gaines # (Auto) Eos # (Auto) Baso # (Auto) Neutrophils % (Manual) Band Neutrophils % Lymphocytes % (Manual) Monocytes % (Manual) Eosinophils % (Manual) Platelet Estimate Large Platelets Sodium Potassium Chloride Carbon Dioxide Anion Gap BUN Creatinine Est GFR ( Amer) Est GFR (Non-Af Amer) Random Glucose Calcium Phosphorus Magnesium Total Bilirubin AST ALT Alkaline Phosphatase Total Protein Albumin Globulin Albumin/Globulin Ratio Blood Type O POSITIVE Antibody Screen Negative 10/14/17 10/14/17 06:23 06:24 WBC 11.6 H RBC 3.49 L Hgb 11.1 Hct 32.6 L MCV 93.4 MCH 31.7 H MCHC 33.9 RDW 14.7 H Plt Count 167 MPV 9.1 Neut % (Auto) 81.6 H Lymph % (Auto) 8.4 L Gaines % (Auto) 8.9 Eos % (Auto) 0.9 Baso % (Auto) 0.2 Neut # (Auto) 9.5 H Lymph # (Auto) 1.0 Gaines # (Auto) 1.0 H Eos # (Auto) 0.1 Baso # (Auto) 0.0 Neutrophils % (Manual) 84 H Band Neutrophils % 1 Lymphocytes % (Manual) 8 L Monocytes % (Manual) 6 Eosinophils % (Manual) 1 Platelet Estimate Normal Large Platelets Present Sodium 136 Potassium 3.7 Chloride 101 Carbon Dioxide 29 Anion Gap 9 L BUN 7 Creatinine 0.5 L Est GFR ( Amer) > 60 Est GFR (Non-Af Amer) > 60 Random Glucose 124 H Calcium 8.3 L Phosphorus 3.5 Magnesium 1.9 Total Bilirubin 0.5 AST 18 ALT 23 Alkaline Phosphatase 51 Total Protein 5.3 L Albumin 2.9 L Globulin 2.4 Albumin/Globulin Ratio 1.2 Blood Type Antibody Screen Review of Systems - EENT Eyes: absent: Change in Vision, Discharge, Loss of Peripheral Vision, Sees Flashes Ears: absent: Ear Discharge, Dizziness Nose/Mouth/Throat: absent: Nasal Discharge, Change in Voice, Halitosis, Odynophagia - Cardiovascular Cardiovascular: absent: Claudication, Irregular Heart Rhythm, Palpitations, Pedal Edema, Syncope - Respiratory Respiratory: UNREMARKABLE. absent: Cough, Dyspnea, Hemoptysis, Pain on Inspiration - Gastrointestinal Gastrointestinal: absent: Belching, Dyspepsia, Fecal Incontinence, Heartburn, Nausea, Vomiting - Musculoskeletal Musculoskeletal: absent: Atrophy, Neck Pain, Numbness, Stiffness, Tingling Additional comments: right leg pain - Integumentary Integumentary: absent: Bleeding Lesions, Dry Skin, New Lesions, Rash, Striae, Wounds, UNREMARKABLE - Neurological Neurological: UNREMARKABLE. absent: Vertigo, Weakness Critical Care Progress Note - Nutrition Nutrition: Nutrition Category Date Time Status Heart Healthy Diet [DIET] Diets 10/13/17 Dinner Active Assessment/Plan - Assessment and Plan (Free Text) Assessment: 82F with a past medical history of PVD, arthritis, Raynauds phenomenon, gallbladder disease(s/p cholecystectomy), COPD, CVA (3 mini strokes), cataracts , osteoporosis who is POD #1 S/P right popliteal to posteriortibial bypass using cryovein with intra-op. Plan: Cardiovascular: CAD and HTN CAD Patient is S/P fem/pop bypass surgery POD #1. Aspirin/Plavix HTN Stress test negative for Ischemia ECHO: Normal EF. Mild to moderate valvular regurgitations No cardiac symptoms as per the patient and her Son (Limited ambulation) There is no high cardiac risk feature noted. Likely Cardiac risk is moderate or Intermediate (3-5%) If benefit outweighs the risk please proceed with the surgery Patient is to continue with Enalapril 20mg PO daily for htn management. BP controlled. Infectious Disease Wound Cultures grew Pseudomonas. Continue Ciprofloxacin Prophylactic Measure Heart Healthy Diet NS @110 cc/h Pepcid 20mg BID PO Resumed home Ventolin and Lovaza Heparin 5000 units SC Q8H Disposition: Patient seen and examined. Patient determined stable to be transferred to Med/Surg. <Leland Cotto - Last Filed: 10/14/17 18:01> CCU Subjective - Physician Review Critical Care Time Spent (in minutes): 30 CCU Objective - Vital Signs / Intake & Output Vital Signs (Last 4 hours): Vital Signs Pulse BP 10/14/17 15:00 98 H 133/50 L Intake and Output (Last 8hrs): Intake & Output 10/14/17 10/14/17 10/14/17 06:59 14:59 22:59 Intake Total 630 850 110 Output Total 300 60 Balance 330 790 110 Intake: Intake, IV Amount 630 730 110 Left Hand 110 Right Antecubital 110 110 Right IJ TLC Proximal 630 510 port Oral 0 120 Output: Urine 300 60 Urethral (Cooney) 300 60 Other: # Bowel Movements 0 0 - Medications Active Medications: Active Medications Generic Name Dose Route Start Last Admin Trade Name Freq PRN Reason Stop Dose Admin Albuterol 2 puff 10/07/17 08:00 10/14/17 08:26 Ventolin Hfa 90 Mcg/Actuation (8 G) IH Not Given RBID DENNIS Aspirin 81 mg 10/07/17 10:00 10/14/17 10:01 Ecotrin PO 81 mg DAILY DENNIS Administration Bacitracin 1 ea 10/07/17 10:00 10/14/17 13:08 Bacitracin TOP 1 ea DAILY DENNIS Administration Clonazepam 0.5 mg 10/06/17 22:00 10/13/17 22:33 Klonopin PO 0.5 mg HS DENNIS Administration Clopidogrel Bisulfate 75 mg 10/07/17 10:00 10/14/17 10:01 Plavix PO 75 mg DAILY DENNIS Administration Enalapril Maleate 20 mg 10/07/17 10:00 10/14/17 10:04 Vasotec PO 20 mg DAILY DENNIS Administration Famotidine 20 mg 10/07/17 10:00 10/14/17 17:33 Pepcid PO 20 mg BID DENNIS Administration Heparin Sodium (Porcine) 5,000 units 10/14/17 06:00 10/14/17 14:00 Heparin SC 5,000 units Q8 DENNIS Administration Ciprofloxacin 400 mg in 200 mls @ 133 mls/hr 10/09/17 20:00 10/14/17 09:00 Cipro 400mg/200ml Dsw IVPB 133 mls/hr Q12H DENNIS Administration Sodium Chloride 1,000 mls @ 110 mls/hr 10/14/17 06:43 10/14/17 17:31 Sodium Chloride 0.9% IV 110 mls/hr .Q9H6M DENNIS Administration Acetaminophen 100 mls @ 100 mls/hr 10/14/17 16:15 10/14/17 17:23 Ofirmev IV 10/15/17 16:16 100 mls/hr Q8H DENNIS Administration Morphine Sulfate 4 mg 10/08/17 18:59 10/14/17 12:14 Morphine IV 4 mg Q6H PRN Administration Pain, severe (8-10) Vltxa-6-Ubum Ethyl Esters 1 gm 10/07/17 10:00 10/14/17 10:01 Lovaza PO 1 gm DAILY DENNIS Administration Oxycodone/Acetaminophen 1 tab 10/14/17 10:27 Percocet 5/325 Mg Tab PO 10/17/17 10:28 Q4H PRN Pain, moderate (4-7) - Patient Studies Lab Studies: Lab Studies 10/14/17 10/14/17 10/13/17 Range/Units 06:24 06:23 21:51 WBC 11.6 H 13.5 H (4.8-10.8) K/uL RBC 3.49 L 3.71 L (3.80-5.20) Mil/uL Hgb 11.1 11.8 (11.0-16.0) g/dL Hct 32.6 L 34.6 (34.0-47.0) % MCV 93.4 93.2 (81.0-99.0) fL MCH 31.7 H 31.7 H (27.0-31.0) pg MCHC 33.9 34.0 (33.0-37.0) g/dL RDW 14.7 H 14.9 H (11.5-14.5) % Plt Count 167 177 (130-400) K/uL MPV 9.1 8.7 (7.2-11.7) fL Neut % (Auto) 81.6 H (50.0-75.0) % Lymph % (Auto) 8.4 L (20.0-40.0) % Gaines % (Auto) 8.9 (0.0-10.0) % Eos % (Auto) 0.9 (0.0-4.0) % Baso % (Auto) 0.2 (0.0-2.0) % Neut # (Auto) 9.5 H (1.8-7.0) K/uL Lymph # (Auto) 1.0 (1.0-4.3) K/uL Gaines # (Auto) 1.0 H (0.0-0.8) K/uL Eos # (Auto) 0.1 (0.0-0.7) K/uL Baso # (Auto) 0.0 (0.0-0.2) K/uL Neutrophils % (Manual) 84 H (50-75) % Band Neutrophils % 1 (0-2) % Lymphocytes % (Manual) 8 L (20-40) % Monocytes % (Manual) 6 (0-10) % Eosinophils % (Manual) 1 (0-4) % Platelet Estimate Normal (NORMAL) Large Platelets Present Sodium 136 (132-148) mmol/L Potassium 3.7 (3.6-5.2) mmol/L Chloride 101 (98-107) mmol/L Carbon Dioxide 29 (22-30) mmol/L Anion Gap 9 L (10-20) BUN 7 (7-17) mg/dL Creatinine 0.5 L (0.7-1.2) mg/dL Est GFR ( Amer) > 60 Est GFR (Non-Af Amer) > 60 Random Glucose 124 H (65-105) mg/dL Calcium 8.3 L (8.6-10.4) mg/dl Phosphorus 3.5 (2.5-4.5) mg/dL Magnesium 1.9 (1.6-2.3) mg/dL Total Bilirubin 0.5 (0.2-1.3) mg/dL AST 18 (14-36) U/L ALT 23 (9-52) U/L Alkaline Phosphatase 51 (38-126) U/L Total Protein 5.3 L (6.3-8.3) g/dL Albumin 2.9 L (3.5-5.0) g/dL Globulin 2.4 (2.2-3.9) gm/dL Albumin/Globulin Ratio 1.2 (1.0-2.1) Laboratory Results - last 24 hr 10/13/17 10/14/17 10/14/17 21:51 06:23 06:24 WBC 13.5 H 11.6 H RBC 3.71 L 3.49 L Hgb 11.8 11.1 Hct 34.6 32.6 L MCV 93.2 93.4 MCH 31.7 H 31.7 H MCHC 34.0 33.9 RDW 14.9 H 14.7 H Plt Count 177 167 MPV 8.7 9.1 Neut % (Auto) 81.6 H Lymph % (Auto) 8.4 L Gaines % (Auto) 8.9 Eos % (Auto) 0.9 Baso % (Auto) 0.2 Neut # (Auto) 9.5 H Lymph # (Auto) 1.0 Gaines # (Auto) 1.0 H Eos # (Auto) 0.1 Baso # (Auto) 0.0 Neutrophils % (Manual) 84 H Band Neutrophils % 1 Lymphocytes % (Manual) 8 L Monocytes % (Manual) 6 Eosinophils % (Manual) 1 Platelet Estimate Normal Large Platelets Present Sodium 136 Potassium 3.7 Chloride 101 Carbon Dioxide 29 Anion Gap 9 L BUN 7 Creatinine 0.5 L Est GFR ( Amer) > 60 Est GFR (Non-Af Amer) > 60 Random Glucose 124 H Calcium 8.3 L Phosphorus 3.5 Magnesium 1.9 Total Bilirubin 0.5 AST 18 ALT 23 Alkaline Phosphatase 51 Total Protein 5.3 L Albumin 2.9 L Globulin 2.4 Albumin/Globulin Ratio 1.2 Critical Care Progress Note - Nutrition Nutrition: Nutrition Category Date Time Status Heart Healthy Diet [DIET] Diets 10/13/17 Dinner Active Attending/Attestation - Attestation I have personally seen and examined this patient.: Yes I have fully participated in the care of the patient.: Yes I have reviewed all pertinent clinical information: Yes Notes (Text): 10/14/17 18:00 patient seen and examined in the intensive care unit. Case discussed with house staff in the morning. s/P right popliteal to posteriortibial bypass
--- NOTE | 2017-10-14 16:20 | CP.PCM.PN ---
<Calvin Paula - Last Filed: 10/14/17 16:26> Subjective - Date & Time of Evaluation Date of Evaluation: 10/14/17 Time of Evaluation: 13:00 - Subjective Subjective: Vascular Surgery- Dr. Mallory Patient seen and examined at bedside. Appropriately tender around incision. RLE Dressing C/D/I. No new complaints Objective - Vital Signs/Intake and Output Vital Signs (last 24 hours): Temp Pulse Resp BP Pulse Ox 97.7 F 98 H 20 133/50 L 95 10/14/17 12:00 10/14/17 15:00 10/14/17 14:00 10/14/17 15:00 10/14/17 12:00 Intake and Output: 10/14/17 10/14/17 06:59 18:59 Intake Total 630 960 Output Total 750 60 Balance -120 900 - Medications Medications: Current Medications Albuterol (Ventolin Hfa 90 Mcg/Actuation (8 G)) 2 puff IH RBID [facility] Last Admin: 10/14/17 08:26 Dose: Not Given Aspirin (Ecotrin) 81 mg PO DAILY [facility] Last Admin: 10/14/17 10:01 Dose: 81 mg Bacitracin (Bacitracin) 1 ea TOP DAILY [facility] Last Admin: 10/14/17 13:08 Dose: 1 ea Clonazepam (Klonopin) 0.5 mg PO HS [facility] Last Admin: 10/13/17 22:33 Dose: 0.5 mg Clopidogrel Bisulfate (Plavix) 75 mg PO DAILY [facility] Last Admin: 10/14/17 10:01 Dose: 75 mg Enalapril Maleate (Vasotec) 20 mg PO DAILY [facility] Last Admin: 10/14/17 10:04 Dose: 20 mg Famotidine (Pepcid) 20 mg PO BID [facility] Last Admin: 10/14/17 10:01 Dose: 20 mg Heparin Sodium (Porcine) (Heparin) 5,000 units SC Q8 [facility] Last Admin: 10/14/17 07:19 Dose: 5,000 units Heparin Sodium (Porcine) (Heparin) 5,000 units SC Q8 [facility] Last Admin: 10/14/17 07:20 Dose: Not Given Ciprofloxacin (Cipro 400mg/200ml Dsw) 400 mg in 200 mls @ 133 mls/hr IVPB Q12H [facility] Last Admin: 10/14/17 09:00 Dose: 133 mls/hr Sodium Chloride (Sodium Chloride 0.9%) 1,000 mls @ 110 mls/hr IV .Q9H6M [facility] Last Admin: 10/14/17 07:21 Dose: 110 mls/hr Acetaminophen (Ofirmev) 100 mls @ 100 mls/hr IV Q8H [facility] Stop: 10/15/17 16:16 Morphine Sulfate (Morphine) 4 mg IV Q6H PRN PRN Reason: Pain, severe (8-10) Last Admin: 10/14/17 12:14 Dose: 4 mg Owyqv-4-Snnd Ethyl Esters (Lovaza) 1 gm PO DAILY [facility] Last Admin: 10/14/17 10:01 Dose: 1 gm Oxycodone/Acetaminophen (Percocet 5/325 Mg Tab) 1 tab PO Q4H PRN PRN Reason: Pain, moderate (4-7) Stop: 10/17/17 10:28 - Labs Labs: 10/14/17 06:24 10/14/17 06:23 PT 13.0 SECONDS (9.7-12.2) H 10/13/17 07:55 INR 1.2 10/13/17 07:55 APTT 35 SECONDS (21-34) H 10/13/17 07:55 - Constitutional Appears: Non-toxic, No Acute Distress - Eye Exam Eye Exam: EOMI. absent: Scleral icterus - ENT Exam ENT Exam: Mucous Membranes Moist - Respiratory Exam Respiratory Exam: NORMAL BREATHING PATTERN. absent: Accessory Muscle Use, Respiratory Distress - Cardiovascular Exam Cardiovascular Exam: +S1, +S2. absent: Bradycardia, Tachycardia - GI/Abdominal Exam GI & Abdominal Exam: Soft. absent: Distended, Guarding, Rigid, Tenderness - Neurological Exam Neurological Exam: Alert, Awake, Oriented x3 Assessment and Plan - Assessment and Plan (Free Text) Assessment: 82F s/p Right popliteal to posterior tibial bypass w/ cryovein; intraoperative arteriogram Plan: - c/w asprin and plavix - d/c boucher - void trial - Physical therapy - encourage OOB - pain control and anti-emetic PRN - discussed w/ Dr. Mallory surgical attending Calvin Paula PGY1 <Shirin Lake - Last Filed: 02/14/18 19:24> Objective - Vital Signs/Intake and Output Vital Signs (last 24 hours): Temp Pulse Resp BP Pulse Ox 97.7 F 89 20 105/73 96 10/14/17 12:00 10/14/17 16:00 10/14/17 16:00 10/14/17 16:00 10/14/17 16:00 Intake and Output: 10/14/17 10/15/17 18:59 06:59 Intake Total 1290 110 Output Total 910 Balance 380 110 - Medications Medications: Current Medications Albuterol (Ventolin Hfa 90 Mcg/Actuation (8 G)) 2 puff IH RBID [facility] Last Admin: 10/14/17 08:26 Dose: Not Given Aspirin (Ecotrin) 81 mg PO DAILY [facility] Last Admin: 10/14/17 10:01 Dose: 81 mg Bacitracin (Bacitracin) 1 ea TOP DAILY [facility] Last Admin: 10/14/17 13:08 Dose: 1 ea Clonazepam (Klonopin) 0.5 mg PO HS [facility] Last Admin: 10/13/17 22:33 Dose: 0.5 mg Clopidogrel Bisulfate (Plavix) 75 mg PO DAILY [facility] Last Admin: 10/14/17 10:01 Dose: 75 mg Enalapril Maleate (Vasotec) 20 mg PO DAILY [facility] Last Admin: 10/14/17 10:04 Dose: 20 mg Famotidine (Pepcid) 20 mg PO BID [facility] Last Admin: 10/14/17 17:33 Dose: 20 mg Heparin Sodium (Porcine) (Heparin) 5,000 units SC Q8 [facility] Last Admin: 10/14/17 14:00 Dose: 5,000 units Ciprofloxacin (Cipro 400mg/200ml Dsw) 400 mg in 200 mls @ 133 mls/hr IVPB Q12H [facility] Last Admin: 10/14/17 09:00 Dose: 133 mls/hr Sodium Chloride (Sodium Chloride 0.9%) 1,000 mls @ 110 mls/hr IV .Q9H6M [facility] Last Admin: 10/14/17 17:31 Dose: 110 mls/hr Acetaminophen (Ofirmev) 100 mls @ 100 mls/hr IV Q8H [facility] Stop: 10/15/17 16:16 Last Admin: 10/14/17 17:23 Dose: 100 mls/hr Morphine Sulfate (Morphine) 4 mg IV Q6H PRN PRN Reason: Pain, severe (8-10) Last Admin: 10/14/17 12:14 Dose: 4 mg Crddb-[id number] Ethyl Esters (Lovaza) 1 gm PO DAILY [facility] Last Admin: 10/14/17 10:01 Dose: 1 gm Oxycodone/Acetaminophen (Percocet 5/325 Mg Tab) 1 tab PO Q4H PRN PRN Reason: Pain, moderate (4-7) Stop: 10/17/17 10:28 - Labs Labs: 10/14/17 06:24 10/14/17 06:23 PT 13.0 SECONDS (9.7-12.2) H 10/13/17 07:55 INR 1.2 10/13/17 07:55 APTT 35 SECONDS (21-34) H 10/13/17 07:55
--- NOTE | 2017-10-14 20:04 | CP.PCM.PN ---
Subjective - Date & Time of Evaluation Date of Evaluation: 10/14/17 Time of Evaluation: 12:50 - Subjective Subjective: Podiatry Consult Note for Dr. Macias 82 y/o female seen at bedside for infected right hallux and 2nd digit ulcerations. Patient is S/P fem-pop bypass POD #1, pt seen in ICU as p is on observation s/p procedure.Patient states she confused this morning, but she feel much more oriented at this time. Denies F/C/N/V/CP/SOB at present. Objective - Vital Signs/Intake and Output Vital Signs (last 24 hours): Temp Pulse Resp BP Pulse Ox 97.7 F 89 20 105/73 96 10/14/17 12:00 10/14/17 16:00 10/14/17 16:00 10/14/17 16:00 10/14/17 16:00 Intake and Output: 10/14/17 10/15/17 18:59 06:59 Intake Total 1290 110 Output Total 910 Balance 380 110 - Medications Medications: Current Medications Albuterol (Ventolin Hfa 90 Mcg/Actuation (8 G)) 2 puff IH RBID [facility] Last Admin: 10/14/17 08:26 Dose: Not Given Aspirin (Ecotrin) 81 mg PO DAILY [facility] Last Admin: 10/14/17 10:01 Dose: 81 mg Bacitracin (Bacitracin) 1 ea TOP DAILY [facility] Last Admin: 10/14/17 13:08 Dose: 1 ea Clonazepam (Klonopin) 0.5 mg PO HS [facility] Last Admin: 10/13/17 22:33 Dose: 0.5 mg Clopidogrel Bisulfate (Plavix) 75 mg PO DAILY [facility] Last Admin: 10/14/17 10:01 Dose: 75 mg Enalapril Maleate (Vasotec) 20 mg PO DAILY [facility] Last Admin: 10/14/17 10:04 Dose: 20 mg Famotidine (Pepcid) 20 mg PO BID [facility] Last Admin: 10/14/17 17:33 Dose: 20 mg Heparin Sodium (Porcine) (Heparin) 5,000 units SC Q8 [facility] Last Admin: 10/14/17 14:00 Dose: 5,000 units Ciprofloxacin (Cipro 400mg/200ml Dsw) 400 mg in 200 mls @ 133 mls/hr IVPB Q12H [facility] Last Admin: 10/14/17 09:00 Dose: 133 mls/hr Sodium Chloride (Sodium Chloride 0.9%) 1,000 mls @ 110 mls/hr IV .Q9H6M [facility] Last Admin: 10/14/17 17:31 Dose: 110 mls/hr Acetaminophen (Ofirmev) 100 mls @ 100 mls/hr IV Q8H [facility] Stop: 10/15/17 16:16 Last Admin: 10/14/17 17:23 Dose: 100 mls/hr Morphine Sulfate (Morphine) 4 mg IV Q6H PRN PRN Reason: Pain, severe (8-10) [id number]-[id number] Ethyl Esters (Lovaza) 1 gm PO DAILY [facility] Last Admin: 10/14/17 10:01 Dose: 1 gm Oxycodone/Acetaminophen (Percocet 5/325 Mg Tab) 1 tab PO Q4H PRN PRN Reason: Pain, moderate (4-7) Stop: 10/17/17 10:28 - Labs Labs: 10/14/17 06:24 10/14/17 06:23 PT 13.0 SECONDS (9.7-12.2) H 10/13/17 07:55 INR 1.2 10/13/17 07:55 APTT 35 SECONDS (21-34) H 10/13/17 07:55 - Constitutional Appears: Well, Non-toxic, No Acute Distress - Extremities Exam Additional comments: Right lower extremity focused. Dressing is clean, dry, and intact. Vasc: DP and PT non-palpable B/L, temperature runs warm to warm proximal to distal. localized edema noted to the 1st and 2nd digit, CFT prompt to digits 3- 5, unassessable to distal vivian of hallux and 2nd digit due to ischemic necrosis , however refill time is prompt with accompanying callor to the healthy skin margins proximal to areas of necrosis. Ortho: Mild pain with palpation to 1st and 2nd digit to the right. Neuro: gross and protective sensation diminished Derm: Resolved superficial ulceration, with atrophic ischemic dusky skin noted to noted to the aspect of right hallux distal for interphalangeal joint and aspect of 2nd digit distal to proximal interphalangeal joint. Mummification of 2nd digit noted. No noted open wound base with no necrosis noted. 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 Macias Labs and vitals reviewed- afebrile, WBC11.6 Pt is s/p fem-pop bypass, at present digital microvasculature is reconstituting , pending further development to fully assess. At present, will continue with local wound care. Dressed with bacitracin and DSD. Discussed with patient and family member, who was present, potential indication ofr digital amputation should area of necrosis not reconstitute following fem- pop bypass. Pt understand potential need. Continue multipodus boots at all time Podiatry will continue to follow patient while in house
[2017-10-14] MEDS: Morphine 4 MG/ML VIAL IV PRN (20:57)
[2017-10-15 06:28] LABS: BASO % 0.3 % (0.0-2.0); EOS # 0.3 K/uL (0.0-0.7); EOS % 2.9 % (0.0-4.0); HEMOGLOBIN 9.9 g/dL (11.0-16.0); LYMPH # 1.4 K/uL (1.0-4.3); LYMPH % 12.5 % (20.0-40.0); MEAN CELL VOLUME 94.1 fL (81.0-99.0); MEAN CORPUSCULAR HEMOGLOBIN 31.8 pg (27.0-31.0); MEAN CORPUSCULAR HGB CONC 33.8 g/dL (33.0-37.0); MEAN PLATELET VOLUME 9.2 fL (7.2-11.7); MONO % 9.4 % (0.0-10.0); NEUT # 8.3 K/uL (1.8-7.0); NEUT % 74.9 % (50.0-75.0); RBC 3.12 Mil/uL (3.80-5.20); RED CELL DISTRIBUTION WIDTH 14.4 % (11.5-14.5); WHITE BLOOD COUNT 11.1 K/uL (4.8-10.8)
[2017-10-15] MEDS: Morphine 4 MG/ML VIAL IV PRN ×2 (06:28→21:26)
[2017-10-15 06:40] LABS: ALBUMIN 2.5 g/dL (3.5-5.0); ALT/SGPT 29 U/L (9-52); AST/SGOT 16 U/L (14-36); BLOOD UREA NITROGEN 13 mg/dL (7-17); CALCIUM 7.5 mg/dl (8.6-10.4); GFR AFRICAN-AMERICAN > 60; GFR NON-AFRICAN AMERICAN > 60; MAGNESIUM 1.9 mg/dL (1.6-2.3)
[2017-10-15] MEDS: Sodium Chloride 0.9% 1,000 ML IV SCH ×3 (07:00→19:45)
[2017-10-15] MEDS: Albuterol HFA 90 mcg/actuation (8 g) IH SCH (08:47)
[2017-10-15] MEDS: Ciprofloxacin 400mg/200ml D5W 400 MG/200 ML BAG IVPB SCH ×2 (08:55→20:41)
[2017-10-15] MEDS: Omega-3-Acid Ethyl Esters 1 GM Cap PO SCH (10:25)
[2017-10-15] MEDS: Bacitracin 500 Units/gm Oint Foilpak UD TOP SCH (10:25)
[2017-10-15] MEDS ORDERED: Potassium Chloride 20 mEq ER Tab PO ONE (10:42)
--- NOTE | 2017-10-15 11:15 | CP.PCM.PN ---
<Nancy Davalos - Last Filed: 10/15/17 11:12> Subjective - Date & Time of Evaluation Date of Evaluation: 10/15/17 Time of Evaluation: 07:30 - Subjective Subjective: Patient seen and examined at bedside. Patient doing well with no new complaints at this time. No acute events overnight per nursing. Patient is having some pain on the right heel and leg but otherwise denies chest pain, SOB, abdominal pain, nausea, vomiting, diarrhea. Objective - Vital Signs/Intake and Output Vital Signs (last 24 hours): Temp Pulse Resp BP Pulse Ox 98.2 F 80 17 124/28 L 100 10/15/17 08:00 10/15/17 10:00 10/15/17 10:00 10/15/17 10:25 10/15/17 10:00 Intake and Output: 10/15/17 10/15/17 06:59 18:59 Intake Total 430 590 Output Total 50 Balance 430 540 - Medications Medications: Current Medications Albuterol (Ventolin Hfa 90 Mcg/Actuation (8 G)) 2 puff IH RBID [facility] Last Admin: 10/15/17 08:47 Dose: 2 puff Aspirin (Ecotrin) 81 mg PO DAILY [facility] Last Admin: 10/15/17 10:25 Dose: 81 mg Bacitracin (Bacitracin) 1 ea TOP DAILY [facility] Last Admin: 10/15/17 10:25 Dose: 1 ea Clonazepam (Klonopin) 0.5 mg PO HS [facility] Last Admin: 10/14/17 21:00 Dose: 0.5 mg Clopidogrel Bisulfate (Plavix) 75 mg PO DAILY [facility] Last Admin: 10/15/17 10:25 Dose: 75 mg Enalapril Maleate (Vasotec) 20 mg PO DAILY [facility] Last Admin: 10/15/17 10:25 Dose: 20 mg Famotidine (Pepcid) 20 mg PO BID [facility] Last Admin: 10/15/17 10:25 Dose: 20 mg Heparin Sodium (Porcine) (Heparin) 5,000 units SC Q8 [facility] Last Admin: 10/15/17 06:27 Dose: 5,000 units Ciprofloxacin (Cipro 400mg/200ml Dsw) 400 mg in 200 mls @ 133 mls/hr IVPB Q12H [facility] Last Admin: 10/15/17 08:55 Dose: 133 mls/hr Sodium Chloride (Sodium Chloride 0.9%) 1,000 mls @ 110 mls/hr IV .Q9H6M [facility] Last Admin: 10/15/17 07:00 Dose: 110 mls/hr Acetaminophen (Ofirmev) 100 mls @ 100 mls/hr IV Q8H [facility] Stop: 10/15/17 16:16 Last Admin: 10/15/17 08:17 Dose: 100 mls/hr Morphine Sulfate (Morphine) 4 mg IV Q6H PRN PRN Reason: Pain, severe (8-10) Last Admin: 10/15/17 06:28 Dose: 4 mg Udcqb-9-Nlen Ethyl Esters (Lovaza) 1 gm PO DAILY [facility] Last Admin: 10/15/17 10:25 Dose: 1 gm Oxycodone/Acetaminophen (Percocet 5/325 Mg Tab) 1 tab PO Q4H PRN PRN Reason: Pain, moderate (4-7) Stop: 10/17/17 10:28 - Labs Labs: 10/15/17 06:18 10/15/17 06:17 PT 13.0 SECONDS (9.7-12.2) H 10/13/17 07:55 INR 1.2 10/13/17 07:55 APTT 35 SECONDS (21-34) H 10/13/17 07:55 - Additional Findings Additional findings: - Constitutional Appears: Non-toxic, No Acute Distress - Head Exam Head Exam: NORMAL INSPECTION - Eye Exam Eye Exam: Normal appearance, PERRL - ENT Exam ENT Exam: Mucous Membranes Moist - Respiratory Exam Respiratory Exam: Clear to Ausculation Bilateral, NORMAL BREATHING PATTERN. absent: Rales, Rhonchi, Wheezes - Cardiovascular Exam Cardiovascular Exam: RRR, +S1, +S2 - GI/Abdominal Exam GI & Abdominal Exam: Soft, Normal Bowel Sounds. absent: Distended, Tenderness - Extremities Exam Extremities Exam: Tenderness (right foot ). absent: Calf Tenderness, Pedal Edema Additional comments: pulses present on palpation and with doppler right leg and foot bandaged, c/d/i - Neurological Exam Neurological Exam: Alert, Awake, Oriented x3 - Psychiatric Exam Psychiatric exam: Normal Affect, Normal Mood - Skin Skin Exam: Dry, Intact, Normal Color, Warm Assessment and Plan - Assessment and Plan (Free Text) Plan: Disposition: Patient s/p popliteal-posterior tibial bypass POD#2 (10/13). Right foot wounds with Hx of PVD Vascular surgery consult with Dr. Mallory, help appreciated * Unable to perform balloon angioplasty - bypass done 10/13/17 * Ordered PT [employer] Assistant Dr. López consulted for cardiac clearance, help appreciated * Lexiscan stress test negative * Echo showed EF 55-60%, hypertensive heart disease, and diastolic dysfunction * Moderate to intermediate cardiac risk Since patient sent in by Dr. Kasper who does not come to this hospital, we have consulted his colleague Dr. 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 Resumed home ASA 81 mg PO daily Resumed home Plavix 75 mg PO daily Wound cultures ordered by podiatry grew pseudomonas Cipro 400 mg IV Q12H Continue Morphine 4 mg IV Q6 prn pain Continue Toradol 15 mg IV Q8 prn pain History of Hypertension Resumed home Enalapril 20 mg PO daily Prophylactic Measure Heart Healthy Diet NS @110 cc/h Protonix 40 mg PO daily Resumed home Ventolin and Lovaza Heparin 5000 units SC Q8H <Shirin [place] - Last Filed: 10/15/17 15:01> Objective - Vital Signs/Intake and Output Vital Signs (last 24 hours): Temp Pulse Resp BP Pulse Ox 98.2 F 79 20 121/39 L 100 10/15/17 12:00 10/15/17 12:00 10/15/17 12:00 10/15/17 12:00 10/15/17 12:00 Intake and Output: 10/15/17 10/15/17 06:59 18:59 Intake Total 430 990 Output Total 200 Balance 430 790 - Medications Medications: Current Medications Albuterol (Ventolin Hfa 90 Mcg/Actuation (8 G)) 2 puff IH RBID [facility] Last Admin: 10/15/17 08:47 Dose: 2 puff Aspirin (Ecotrin) 81 mg PO DAILY [facility] Last Admin: 10/15/17 10:25 Dose: 81 mg Bacitracin (Bacitracin) 1 ea TOP DAILY [facility] Last Admin: 10/15/17 10:25 Dose: 1 ea Clonazepam (Klonopin) 0.5 mg PO HS [facility] Last Admin: 10/14/17 21:00 Dose: 0.5 mg Clopidogrel Bisulfate (Plavix) 75 mg PO DAILY [facility] Last Admin: 10/15/17 10:25 Dose: 75 mg Enalapril Maleate (Vasotec) 20 mg PO DAILY [facility] Last Admin: 10/15/17 10:25 Dose: 20 mg Famotidine (Pepcid) 20 mg PO BID [facility] Last Admin: 10/15/17 10:25 Dose: 20 mg Heparin Sodium (Porcine) (Heparin) 5,000 units SC Q8 [facility] Last Admin: 10/15/17 06:27 Dose: 5,000 units Ciprofloxacin (Cipro 400mg/200ml Dsw) 400 mg in 200 mls @ 133 mls/hr IVPB Q12H [facility] Last Admin: 10/15/17 08:55 Dose: 133 mls/hr Sodium Chloride (Sodium Chloride 0.9%) 1,000 mls @ 110 mls/hr IV .Q9H6M [facility] Last Admin: 10/15/17 07:00 Dose: 110 mls/hr Acetaminophen (Ofirmev) 100 mls @ 100 mls/hr IV Q8H [facility] Stop: 10/15/17 16:16 Last Admin: 10/15/17 08:17 Dose: 100 mls/hr Morphine Sulfate (Morphine) 4 mg IV Q6H PRN PRN Reason: Pain, severe (8-10) Last Admin: 10/15/17 06:28 Dose: 4 mg Ljryf-7-Sbqb Ethyl Esters (Lovaza) 1 gm PO DAILY [facility] Last Admin: 10/15/17 10:25 Dose: 1 gm Oxycodone/Acetaminophen (Percocet 5/325 Mg Tab) 1 tab PO Q4H PRN PRN Reason: Pain, moderate (4-7) Stop: 10/17/17 10:28 - Labs Labs: 10/15/17 06:18 10/15/17 06:17 PT 13.0 SECONDS (9.7-12.2) H 10/13/17 07:55 INR 1.2 10/13/17 07:55 APTT 35 SECONDS (21-34) H 10/13/17 07:55 Attending/Attestation - Attestation I have personally seen and examined this patient.: Yes I have fully participated in the care of the patient.: Yes I have reviewed all pertinent clinical information, including history, physical exam and plan: Yes Notes (Text): Seen and examined complaining of right heel pain getting pain meds D/W patient's son at bedside PT evaluation pending D/W the resident. I agree with the assessment and the plan of the resident
--- NOTE | 2017-10-15 11:56 | CP.PCM.PN ---
Subjective - Date & Time of Evaluation Date of Evaluation: 10/15/17 Time of Evaluation: 09:00 - Subjective Subjective: Podiatry Consult Note for Dr. Macias 82 y/o female seen at bedside for gangenous right hallux and 2nd digit. Patient is S/P fem-pop bypass POD #2, pt seen in ICU as pt is on observation s/p procedure. Patient describes new onset pain on the right heel, otherwise she states. Multipodus boots not inplace at time of evaluation. Rigth leg pain s/p procedure is regressing. She denies any acute overnight events including F/C/N/V /CP/SOB at present. Objective - Vital Signs/Intake and Output Vital Signs (last 24 hours): Temp Pulse Resp BP Pulse Ox 98.2 F 85 19 116/37 L 100 10/15/17 08:00 10/15/17 11:00 10/15/17 11:00 10/15/17 11:00 10/15/17 11:00 Intake and Output: 10/15/17 10/15/17 06:59 18:59 Intake Total 430 700 Output Total 50 Balance 430 650 - Medications Medications: Current Medications Albuterol (Ventolin Hfa 90 Mcg/Actuation (8 G)) 2 puff IH RBID [facility] Last Admin: 10/15/17 08:47 Dose: 2 puff Aspirin (Ecotrin) 81 mg PO DAILY [facility] Last Admin: 10/15/17 10:25 Dose: 81 mg Bacitracin (Bacitracin) 1 ea TOP DAILY [facility] Last Admin: 10/15/17 10:25 Dose: 1 ea Clonazepam (Klonopin) 0.5 mg PO HS [facility] Last Admin: 10/14/17 21:00 Dose: 0.5 mg Clopidogrel Bisulfate (Plavix) 75 mg PO DAILY [facility] Last Admin: 10/15/17 10:25 Dose: 75 mg Enalapril Maleate (Vasotec) 20 mg PO DAILY [facility] Last Admin: 10/15/17 10:25 Dose: 20 mg Famotidine (Pepcid) 20 mg PO BID [facility] Last Admin: 10/15/17 10:25 Dose: 20 mg Heparin Sodium (Porcine) (Heparin) 5,000 units SC Q8 [facility] Last Admin: 10/15/17 06:27 Dose: 5,000 units Ciprofloxacin (Cipro 400mg/200ml Dsw) 400 mg in 200 mls @ 133 mls/hr IVPB Q12H [facility] Last Admin: 10/15/17 08:55 Dose: 133 mls/hr Sodium Chloride (Sodium Chloride 0.9%) 1,000 mls @ 110 mls/hr IV .Q9H6M [facility] Last Admin: 10/15/17 07:00 Dose: 110 mls/hr Acetaminophen (Ofirmev) 100 mls @ 100 mls/hr IV Q8H [facility] Stop: 10/15/17 16:16 Last Admin: 10/15/17 08:17 Dose: 100 mls/hr Morphine Sulfate (Morphine) 4 mg IV Q6H PRN PRN Reason: Pain, severe (8-10) Last Admin: 10/15/17 06:28 Dose: 4 mg Rmfyr-1-Ltgv Ethyl Esters (Lovaza) 1 gm PO DAILY [facility] Last Admin: 10/15/17 10:25 Dose: 1 gm Oxycodone/Acetaminophen (Percocet 5/325 Mg Tab) 1 tab PO Q4H PRN PRN Reason: Pain, moderate (4-7) Stop: 10/17/17 10:28 - Labs Labs: 10/15/17 06:18 10/15/17 06:17 PT 13.0 SECONDS (9.7-12.2) H 10/13/17 07:55 INR 1.2 10/13/17 07:55 APTT 35 SECONDS (21-34) H 10/13/17 07:55 - Constitutional Appears: Well, Non-toxic - Extremities Exam Additional comments: Right lower extremity focused. Dressing is clean, dry, and intact. Vasc: DP and PT non-palpable, appreciated pedal pulses via doppler. Temperature runs warm to warm proximal to distal. localized edema noted to the 1st and 2nd digit, CFT prompt to digits 3-5, unappreciable to distal vivian of hallux and 2nd digit due to ischemic necrosis, however refill time is prompt with accompanying callor to the healthy skin margins proximal to areas of necrosis. Margins nof ischemic changes marked with skin marker to asses demarcation and potential regressions. Ortho: Mild pain with palpation to 1st and 2nd digit to the right. Mild tnderness to palpation along heels bilaterally, no evidence of deep tissue injury or pre-ulcerative pressure ulcerations. Neuro: gross and protective sensation diminished Derm: Resolved superficial ulceration, with atrophic ischemic dusky skin noted to noted to the aspect of right hallux distal for interphalangeal joint and spect of 2nd digit distal to proximal interphalangeal joint. Mummification of 2nd digit noted. No noted open wound base with no necrosis noted. No evidence of deep tissue injury or pre-ulcerative pressure ulcerations to heels bilaterally heel fatpad intact and skin supply. 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 Macias Labs and vitals reviewed- afebrile, WBC11.1 Pt is s/p fem-pop bypass, at present digital microvasculature is reconstituting , pending further development to fully assess. At present, will continue with local wound care. Dressed with betadine and DSD. Discussed with patient and family member, who was present, potential indication for digital amputation should area of necrosis not reconstitute following fem- pop bypass. Pt understand potential need. Continue multipodus boots at all time Podiatry will continue to follow patient while in house
--- NOTE | 2017-10-15 12:17 | CP.PCM.PN ---
Subjective - Date & Time of Evaluation Date of Evaluation: 10/15/17 Time of Evaluation: 07:10 - Subjective Subjective: Vascular Surgery- Dr. Mallory Patient seen and examined at bedside this AM. pain renetta-incisional and manageable. RLE dressing C/D/I. palpable RLE pulses at site of graft. Tolerating current diet. Objective - Vital Signs/Intake and Output Vital Signs (last 24 hours): Temp Pulse Resp BP Pulse Ox 98.2 F 85 19 116/37 L 100 10/15/17 08:00 10/15/17 11:00 10/15/17 11:00 10/15/17 11:00 10/15/17 11:00 Intake and Output: 10/15/17 10/15/17 06:59 18:59 Intake Total 430 700 Output Total 50 Balance 430 650 - Medications Medications: Current Medications Albuterol (Ventolin Hfa 90 Mcg/Actuation (8 G)) 2 puff IH RBID [facility] Last Admin: 10/15/17 08:47 Dose: 2 puff Aspirin (Ecotrin) 81 mg PO DAILY [facility] Last Admin: 10/15/17 10:25 Dose: 81 mg Bacitracin (Bacitracin) 1 ea TOP DAILY [facility] Last Admin: 10/15/17 10:25 Dose: 1 ea Clonazepam (Klonopin) 0.5 mg PO HS [facility] Last Admin: 10/14/17 21:00 Dose: 0.5 mg Clopidogrel Bisulfate (Plavix) 75 mg PO DAILY [facility] Last Admin: 10/15/17 10:25 Dose: 75 mg Enalapril Maleate (Vasotec) 20 mg PO DAILY [facility] Last Admin: 10/15/17 10:25 Dose: 20 mg Famotidine (Pepcid) 20 mg PO BID [facility] Last Admin: 10/15/17 10:25 Dose: 20 mg Heparin Sodium (Porcine) (Heparin) 5,000 units SC Q8 [facility] Last Admin: 10/15/17 06:27 Dose: 5,000 units Ciprofloxacin (Cipro 400mg/200ml Dsw) 400 mg in 200 mls @ 133 mls/hr IVPB Q12H [facility] Last Admin: 10/15/17 08:55 Dose: 133 mls/hr Sodium Chloride (Sodium Chloride 0.9%) 1,000 mls @ 110 mls/hr IV .Q9H6M [facility] Last Admin: 10/15/17 07:00 Dose: 110 mls/hr Acetaminophen (Ofirmev) 100 mls @ 100 mls/hr IV Q8H [facility] Stop: 10/15/17 16:16 Last Admin: 10/15/17 08:17 Dose: 100 mls/hr Morphine Sulfate (Morphine) 4 mg IV Q6H PRN PRN Reason: Pain, severe (8-10) Last Admin: 10/15/17 06:28 Dose: 4 mg Mrcfv-7-Wtxh Ethyl Esters (Lovaza) 1 gm PO DAILY [facility] Last Admin: 10/15/17 10:25 Dose: 1 gm Oxycodone/Acetaminophen (Percocet 5/325 Mg Tab) 1 tab PO Q4H PRN PRN Reason: Pain, moderate (4-7) Stop: 10/17/17 10:28 - Labs Labs: 10/15/17 06:18 10/15/17 06:17 PT 13.0 SECONDS (9.7-12.2) H 10/13/17 07:55 INR 1.2 10/13/17 07:55 APTT 35 SECONDS (21-34) H 10/13/17 07:55 - Constitutional Appears: Non-toxic, No Acute Distress - Eye Exam Eye Exam: EOMI, Scleral icterus - ENT Exam ENT Exam: Mucous Membranes Moist - Respiratory Exam Respiratory Exam: NORMAL BREATHING PATTERN. absent: Accessory Muscle Use, Respiratory Distress - Cardiovascular Exam Cardiovascular Exam: +S1, +S2. absent: Bradycardia, Tachycardia - GI/Abdominal Exam GI & Abdominal Exam: Soft. absent: Distended, Firm, Guarding, Rigid, Tenderness - Extremities Exam Additional comments: Dopplerable PT and DP palpable pulse at site of graft in RLE - Neurological Exam Neurological Exam: Alert, Awake, Oriented x3 - Psychiatric Exam Psychiatric exam: Normal Affect - Skin Skin Exam: Intact, Warm Assessment and Plan - Assessment and Plan (Free Text) Assessment: 82F s/p Right popliteal to posterior tibial bypass w/ cryovein; intraoperative arteriogram POD#2 Patient family at bedside and was discussed in detail about Cryovein. Discussed that patient does not need anti-rejection medications for the vein. Plan: - c/w asprin and plavix - Physical therapy - encourage OOB - full weight bearing - pain control and anti-emetic PRN - discussed w/ Dr. Mallory surgical attending Calvin Paula PGY1
--- NOTE | 2017-10-15 12:21 | CP.PCM.PN ---
Subjective - Date & Time of Evaluation Date of Evaluation: 10/15/17 Time of Evaluation: 12:20 - Subjective Subjective: dooing well with palpable gradt pulse reviwed option and choice of cryp vein with other son overall doing well, want aggressive therapy and full weight bearing Objective - Vital Signs/Intake and Output Vital Signs (last 24 hours): Temp Pulse Resp BP Pulse Ox 98.2 F 85 19 116/37 L 100 10/15/17 08:00 10/15/17 11:00 10/15/17 11:00 10/15/17 11:00 10/15/17 11:00 Intake and Output: 10/15/17 10/15/17 06:59 18:59 Intake Total 430 700 Output Total 50 Balance 430 650 - Medications Medications: Current Medications Albuterol (Ventolin Hfa 90 Mcg/Actuation (8 G)) 2 puff IH RBID [facility] Last Admin: 10/15/17 08:47 Dose: 2 puff Aspirin (Ecotrin) 81 mg PO DAILY [facility] Last Admin: 10/15/17 10:25 Dose: 81 mg Bacitracin (Bacitracin) 1 ea TOP DAILY [facility] Last Admin: 10/15/17 10:25 Dose: 1 ea Clonazepam (Klonopin) 0.5 mg PO HS [facility] Last Admin: 10/14/17 21:00 Dose: 0.5 mg Clopidogrel Bisulfate (Plavix) 75 mg PO DAILY [facility] Last Admin: 10/15/17 10:25 Dose: 75 mg Enalapril Maleate (Vasotec) 20 mg PO DAILY [facility] Last Admin: 10/15/17 10:25 Dose: 20 mg Famotidine (Pepcid) 20 mg PO BID [facility] Last Admin: 10/15/17 10:25 Dose: 20 mg Heparin Sodium (Porcine) (Heparin) 5,000 units SC Q8 [facility] Last Admin: 10/15/17 06:27 Dose: 5,000 units Ciprofloxacin (Cipro 400mg/200ml Dsw) 400 mg in 200 mls @ 133 mls/hr IVPB Q12H [facility] Last Admin: 10/15/17 08:55 Dose: 133 mls/hr Sodium Chloride (Sodium Chloride 0.9%) 1,000 mls @ 110 mls/hr IV .Q9H6M [facility] Last Admin: 10/15/17 07:00 Dose: 110 mls/hr Acetaminophen (Ofirmev) 100 mls @ 100 mls/hr IV Q8H [facility] Stop: 10/15/17 16:16 Last Admin: 10/15/17 08:17 Dose: 100 mls/hr Morphine Sulfate (Morphine) 4 mg IV Q6H PRN PRN Reason: Pain, severe (8-10) Last Admin: 10/15/17 06:28 Dose: 4 mg Rnvav-5-Hbjh Ethyl Esters (Lovaza) 1 gm PO DAILY [facility] Last Admin: 10/15/17 10:25 Dose: 1 gm Oxycodone/Acetaminophen (Percocet 5/325 Mg Tab) 1 tab PO Q4H PRN PRN Reason: Pain, moderate (4-7) Stop: 10/17/17 10:28 - Labs Labs: 10/15/17 06:18 10/15/17 06:17 PT 13.0 SECONDS (9.7-12.2) H 10/13/17 07:55 INR 1.2 10/13/17 07:55 APTT 35 SECONDS (21-34) H 10/13/17 07:55
--- NOTE | 2017-10-15 21:56 | CP.PCM.PN ---
Subjective - Date & Time of Evaluation Date of Evaluation: 10/15/17 Time of Evaluation: 09:10 - Subjective Subjective: Patient seen and evaluated No cardiac events noted Denies chest pain and dyspnea Objective - Vital Signs/Intake and Output Vital Signs (last 24 hours): Temp Pulse Resp BP Pulse Ox 98.3 F 82 18 126/55 L 97 10/15/17 14:59 10/15/17 14:59 10/15/17 14:59 10/15/17 14:59 10/15/17 14:59 Intake and Output: 10/15/17 10/16/17 18:59 06:59 Intake Total 1330 Output Total 250 Balance 1080 - Medications Medications: Current Medications Acetaminophen (Tylenol 325mg Tab) 650 mg PO Q6 PRN PRN Reason: Fever >100.4 F Albuterol (Ventolin Hfa 90 Mcg/Actuation (8 G)) 2 puff IH RBID [facility] Last Admin: 10/15/17 08:47 Dose: 2 puff Aspirin (Ecotrin) 81 mg PO DAILY [facility] Last Admin: 10/15/17 10:25 Dose: 81 mg Bacitracin (Bacitracin) 1 ea TOP DAILY [facility] Last Admin: 10/15/17 10:25 Dose: 1 ea Clonazepam (Klonopin) 0.5 mg PO HS [facility] Last Admin: 10/15/17 21:22 Dose: 0.5 mg Clopidogrel Bisulfate (Plavix) 75 mg PO DAILY [facility] Last Admin: 10/15/17 10:25 Dose: 75 mg Enalapril Maleate (Vasotec) 20 mg PO DAILY [facility] Last Admin: 10/15/17 10:25 Dose: 20 mg Famotidine (Pepcid) 20 mg PO BID [facility] Last Admin: 10/15/17 18:12 Dose: 20 mg Heparin Sodium (Porcine) (Heparin) 5,000 units SC Q8 [facility] Last Admin: 10/15/17 21:47 Dose: 5,000 units Ciprofloxacin (Cipro 400mg/200ml Dsw) 400 mg in 200 mls @ 133 mls/hr IVPB Q12H [facility] Last Admin: 10/15/17 20:41 Dose: 133 mls/hr Sodium Chloride (Sodium Chloride 0.9%) 1,000 mls @ 110 mls/hr IV .Q9H6M [facility] Last Admin: 10/15/17 19:45 Dose: 110 mls/hr Ketorolac Tromethamine (Toradol) 30 mg IVP Q6 PRN PRN Reason: Pain, moderate (4-7) Morphine Sulfate (Morphine) 4 mg IV Q6H PRN PRN Reason: Pain, severe (8-10) Last Admin: 10/15/17 21:26 Dose: 4 mg Trmql-3-Wyof Ethyl Esters (Lovaza) 1 gm PO DAILY [facility] Last Admin: 10/15/17 10:25 Dose: 1 gm Oxycodone/Acetaminophen (Percocet 5/325 Mg Tab) 1 tab PO Q4H PRN PRN Reason: BREAKTHROUGH PAIN Stop: 10/17/17 10:28 - Labs Labs: 10/15/17 06:18 10/15/17 06:17 PT 13.0 SECONDS (9.7-12.2) H 10/13/17 07:55 INR 1.2 10/13/17 07:55 APTT 35 SECONDS (21-34) H 10/13/17 07:55
[2017-10-16] MEDS: Sodium Chloride 0.9% 1,000 ML IV SCH ×2 (05:56→15:27)
[2017-10-16 06:38] LABS: BASO % 0.4 % (0.0-2.0); EOS # 0.3 K/uL (0.0-0.7); EOS % 3.2 % (0.0-4.0); HEMOGLOBIN 10.8 g/dL (11.0-16.0); LYMPH % 11.9 % (20.0-40.0); MEAN CELL VOLUME 94.3 fL (81.0-99.0); MEAN CORPUSCULAR HEMOGLOBIN 31.8 pg (27.0-31.0); MEAN CORPUSCULAR HGB CONC 33.7 g/dL (33.0-37.0); MEAN PLATELET VOLUME 8.7 fL (7.2-11.7); MONO # 0.7 K/uL (0.0-0.8); NEUT # 6.6 K/uL (1.8-7.0); NEUT % 76.5 % (50.0-75.0); RBC 3.39 Mil/uL (3.80-5.20); RED CELL DISTRIBUTION WIDTH 14.5 % (11.5-14.5); WHITE BLOOD COUNT 8.6 K/uL (4.8-10.8)
[2017-10-16 06:55] LABS: ALBUMIN 2.6 g/dL (3.5-5.0); ALT/SGPT 21 U/L (9-52); AST/SGOT 38 U/L (14-36); BLOOD UREA NITROGEN 5 mg/dL (7-17); CALCIUM 7.9 mg/dl (8.6-10.4); GFR AFRICAN-AMERICAN > 60; GFR NON-AFRICAN AMERICAN > 60
[2017-10-16] MEDS: Ciprofloxacin 400mg/200ml D5W 400 MG/200 ML BAG IVPB SCH (07:54)
[2017-10-16] MEDS: Omega-3-Acid Ethyl Esters 1 GM Cap PO SCH (09:11)
[2017-10-16] MEDS: Bacitracin 500 Units/gm Oint Foilpak UD TOP SCH (09:11)
--- NOTE | 2017-10-16 09:18 | CP.PCM.PN ---
Subjective - Date & Time of Evaluation Date of Evaluation: 10/16/17 Time of Evaluation: 06:55 - Subjective Subjective: Vascular Surgery- Dr. Mallory Patient seen and examined at bedside this AM. No acute events overnight. Pain well controlled at this time. palpable graft pulse. leg warm. Denies F/C CP/SOB N/V/D Objective - Vital Signs/Intake and Output Vital Signs (last 24 hours): Temp Pulse Resp BP Pulse Ox 98.1 F 87 20 138/73 98 10/16/17 07:15 10/16/17 07:15 10/16/17 07:15 10/16/17 09:10 10/16/17 07:15 - Medications Medications: Current Medications Acetaminophen (Tylenol 325mg Tab) 650 mg PO Q6 PRN PRN Reason: Fever >100.4 F Albuterol (Ventolin Hfa 90 Mcg/Actuation (8 G)) 2 puff IH RBID [facility] Last Admin: 10/15/17 08:47 Dose: 2 puff Aspirin (Ecotrin) 81 mg PO DAILY [facility] Last Admin: 10/16/17 09:12 Dose: 81 mg Bacitracin (Bacitracin) 1 ea TOP DAILY [facility] Last Admin: 10/16/17 09:11 Dose: 1 ea Clonazepam (Klonopin) 0.5 mg PO HS [facility] Last Admin: 10/15/17 21:22 Dose: 0.5 mg Clopidogrel Bisulfate (Plavix) 75 mg PO DAILY [facility] Last Admin: 10/16/17 09:11 Dose: 75 mg Enalapril Maleate (Vasotec) 20 mg PO DAILY [facility] Last Admin: 10/16/17 09:10 Dose: 20 mg Famotidine (Pepcid) 20 mg PO BID [facility] Last Admin: 10/16/17 09:09 Dose: 20 mg Heparin Sodium (Porcine) (Heparin) 5,000 units SC Q8 [facility] Last Admin: 10/16/17 05:54 Dose: 5,000 units Ciprofloxacin (Cipro 400mg/200ml Dsw) 400 mg in 200 mls @ 133 mls/hr IVPB Q12H [facility] Last Admin: 10/16/17 07:54 Dose: 133 mls/hr Sodium Chloride (Sodium Chloride 0.9%) 1,000 mls @ 110 mls/hr IV .Q9H6M [facility] Last Admin: 10/16/17 05:56 Dose: 110 mls/hr Ketorolac Tromethamine (Toradol) 30 mg IVP Q6 PRN PRN Reason: Pain, moderate (4-7) Morphine Sulfate (Morphine) 4 mg IV Q6H PRN PRN Reason: Pain, severe (8-10) Last Admin: 10/15/17 21:26 Dose: 4 mg Bweqh-2-Xelx Ethyl Esters (Lovaza) 1 gm PO DAILY [facility] Last Admin: 10/16/17 09:11 Dose: 1 gm Oxycodone/Acetaminophen (Percocet 5/325 Mg Tab) 1 tab PO Q4H PRN PRN Reason: BREAKTHROUGH PAIN Stop: 10/17/17 10:28 - Labs Labs: 10/16/17 06:30 10/16/17 06:30 PT 13.0 SECONDS (9.7-12.2) H 10/13/17 07:55 INR 1.2 10/13/17 07:55 APTT 35 SECONDS (21-34) H 10/13/17 07:55 - Constitutional Appears: Non-toxic, No Acute Distress - Eye Exam Eye Exam: EOMI. absent: Scleral icterus - ENT Exam ENT Exam: Mucous Membranes Moist - Respiratory Exam Respiratory Exam: absent: Accessory Muscle Use, Respiratory Distress - Cardiovascular Exam Cardiovascular Exam: +S1, +S2. absent: Bradycardia, Tachycardia - GI/Abdominal Exam GI & Abdominal Exam: Soft. absent: Firm, Guarding, Rigid, Tenderness - Extremities Exam Extremities Exam: absent: Calf Tenderness Additional comments: palpable graft pulse - Neurological Exam Neurological Exam: Alert, Awake, Oriented x3 - Skin Skin Exam: Intact, Warm Assessment and Plan - Assessment and Plan (Free Text) Assessment: 82F s/p Right popliteal to posterior tibial bypass w/ cryovein; intraoperative arteriogram POD#3. Plan: - c/w asprin and plavix - Aggressive Physical therapy - encourage OOB - full weight bearing - pain control and anti-emetic PRN - discussed w/ Dr. Mallory surgical attending Calvin Paula PGY1
[2017-10-16] MEDS ORDERED: Potassium Chloride 20 mEq ER Tab PO ONE ×2 (10:00→12:00)
[2017-10-16] MEDS ORDERED: Potassium & Sodium Phosphate PO ONE (10:00)
--- NOTE | 2017-10-16 10:09 | CP.PCM.PN ---
<Nancy Davalos - Last Filed: 10/16/17 14:14> Subjective - Date & Time of Evaluation Date of Evaluation: 10/16/17 Time of Evaluation: 10:09 - Subjective Subjective: Patient seen and examined at bedside. No acute events overnight. Patient resting comfrotably in bed with no new complaints at this time. Patient says she is in a lot of pain so I reminded her to ask the nurses for her pain medication whenever she needs it. She denies chest pain, SOB, abdominal pain, nausea, vomiting, and diarrhea. Objective - Vital Signs/Intake and Output Vital Signs (last 24 hours): Temp Pulse Resp BP Pulse Ox 98.1 F 87 20 138/73 98 10/16/17 07:15 10/16/17 07:15 10/16/17 07:15 10/16/17 09:10 10/16/17 07:15 - Medications Medications: Current Medications Acetaminophen (Tylenol 325mg Tab) 650 mg PO Q6 PRN PRN Reason: Fever >100.4 F Albuterol (Ventolin Hfa 90 Mcg/Actuation (8 G)) 2 puff IH RBID [facility] Last Admin: 10/15/17 08:47 Dose: 2 puff Aspirin (Ecotrin) 81 mg PO DAILY [facility] Last Admin: 10/16/17 09:12 Dose: 81 mg Bacitracin (Bacitracin) 1 ea TOP DAILY [facility] Last Admin: 10/16/17 09:11 Dose: 1 ea Clonazepam (Klonopin) 0.5 mg PO HS [facility] Last Admin: 10/15/17 21:22 Dose: 0.5 mg Clopidogrel Bisulfate (Plavix) 75 mg PO DAILY [facility] Last Admin: 10/16/17 09:11 Dose: 75 mg Enalapril Maleate (Vasotec) 20 mg PO DAILY [facility] Last Admin: 10/16/17 09:10 Dose: 20 mg Famotidine (Pepcid) 20 mg PO BID [facility] Last Admin: 10/16/17 09:09 Dose: 20 mg Heparin Sodium (Porcine) (Heparin) 5,000 units SC Q8 [facility] Last Admin: 10/16/17 05:54 Dose: 5,000 units Ciprofloxacin (Cipro 400mg/200ml Dsw) 400 mg in 200 mls @ 133 mls/hr IVPB Q12H [facility] Last Admin: 10/16/17 07:54 Dose: 133 mls/hr Sodium Chloride (Sodium Chloride 0.9%) 1,000 mls @ 110 mls/hr IV .Q9H6M [facility] Last Admin: 10/16/17 05:56 Dose: 110 mls/hr Ketorolac Tromethamine (Toradol) 30 mg IVP Q6 PRN PRN Reason: Pain, moderate (4-7) Morphine Sulfate (Morphine) 4 mg IV Q6H PRN PRN Reason: Pain, severe (8-10) Last Admin: 10/15/17 21:26 Dose: 4 mg Ksqzi-3-Gkjs Ethyl Esters (Lovaza) 1 gm PO DAILY [facility] Last Admin: 10/16/17 09:11 Dose: 1 gm Oxycodone/Acetaminophen (Percocet 5/325 Mg Tab) 1 tab PO Q4H PRN PRN Reason: BREAKTHROUGH PAIN Stop: 10/17/17 10:28 - Labs Labs: 10/16/17 06:30 10/16/17 06:30 PT 13.0 SECONDS (9.7-12.2) H 10/13/17 07:55 INR 1.2 10/13/17 07:55 APTT 35 SECONDS (21-34) H 10/13/17 07:55 - Additional Findings Additional findings: - Constitutional Appears: Non-toxic, No Acute Distress - Head Exam Head Exam: NORMAL INSPECTION - Eye Exam Eye Exam: Normal appearance, PERRL - ENT Exam ENT Exam: Mucous Membranes Moist - Respiratory Exam Respiratory Exam: Clear to Ausculation Bilateral, NORMAL BREATHING PATTERN. absent: Rales, Rhonchi, Wheezes - Cardiovascular Exam Cardiovascular Exam: RRR, +S1, +S2 - GI/Abdominal Exam GI & Abdominal Exam: Soft, Normal Bowel Sounds. absent: Distended, Tenderness - Extremities Exam Extremities Exam: Tenderness (right foot ). absent: Calf Tenderness, Pedal Edema Additional comments: pulses present right leg and foot bandaged, c/d/i - Neurological Exam Neurological Exam: Alert, Awake, Oriented x3 - Psychiatric Exam Psychiatric exam: Normal Affect, Normal Mood - Skin Skin Exam: Dry, Intact, Normal Color, Warm Assessment and Plan - Assessment and Plan (Free Text) Plan: Disposition: Patient s/p popliteal-posterior tibial bypass POD#3 (10/13). PT is seeing patient for aggressive full weight bearing therapy. Podiatry discussed with patient the potential indication for digital amputation should area of necrosis not reconstitute following bypass. Will follow up with podiatry to see if patient can be discharged tomorrow since patient is cleared by surgery. Right foot wounds with Hx of PVD Vascular surgery consult with Dr. Mallory, help appreciated * Unable to perform balloon angioplasty - bypass done 10/13/17 * Ordered PT Film Processing Shift Supervisor Dr. López consulted for cardiac clearance, help appreciated * Lexiscan stress test negative * Echo showed EF 55-60%, hypertensive heart disease, and diastolic dysfunction * Moderate to intermediate cardiac risk Since patient sent in by Dr. Kasper who does not come to this hospital, we have consulted his colleague Dr. 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 Resumed home ASA 81 mg PO daily Resumed home Plavix 75 mg PO daily Wound cultures ordered by podiatry grew pseudomonas Cipro 400 mg IV Q12H started 10/09 10/16 dsicontinue Morphine 4 mg IV Q6 prn pain 10/16 discontinue Toradol 15 mg IV Q8 prn pain 10/16 started percocet Q4 prn Hypokalemia Monitor and replace as needed History of Hypertension Resumed home Enalapril 20 mg PO daily Prophylactic Measure Heart Healthy Diet NS @110 cc/h Protonix 40 mg PO daily Resumed home Ventolin and Lovaza Heparin 5000 units SC Q8H <Shirin [place] - Last Filed: 10/16/17 16:49> Objective - Vital Signs/Intake and Output Vital Signs (last 24 hours): Temp Pulse Resp BP Pulse Ox 98.5 F 89 20 144/72 96 10/16/17 15:00 10/16/17 15:00 10/16/17 15:00 10/16/17 15:00 10/16/17 15:00 Intake and Output: 10/16/17 10/16/17 06:59 18:59 Intake Total 50 Balance 50 - Medications Medications: Current Medications Albuterol (Ventolin Hfa 90 Mcg/Actuation (8 G)) 2 puff IH RBID [facility] Last Admin: 10/16/17 11:10 Dose: Not Given Aspirin (Ecotrin) 81 mg PO DAILY [facility] Last Admin: 10/16/17 09:12 Dose: 81 mg Bacitracin (Bacitracin) 1 ea TOP DAILY [facility] Last Admin: 10/16/17 09:11 Dose: 1 ea Ciprofloxacin (Cipro) 500 mg PO Q12H [facility] Clonazepam (Klonopin) 0.5 mg PO HS [facility] Last Admin: 10/15/17 21:22 Dose: 0.5 mg Clopidogrel Bisulfate (Plavix) 75 mg PO DAILY [facility] Last Admin: 10/16/17 09:11 Dose: 75 mg Enalapril Maleate (Vasotec) 20 mg PO DAILY [facility] Last Admin: 10/16/17 09:10 Dose: 20 mg Famotidine (Pepcid) 20 mg PO BID [facility] Last Admin: 10/16/17 09:09 Dose: 20 mg Heparin Sodium (Porcine) (Heparin) 5,000 units SC Q8 [facility] Last Admin: 10/16/17 13:09 Dose: 5,000 units Sodium Chloride (Sodium Chloride 0.9%) 1,000 mls @ 110 mls/hr IV .Q9H6M [facility] Last Admin: 10/16/17 15:27 Dose: 110 mls/hr Oogib-3-Jjig Ethyl Esters (Lovaza) 1 gm PO DAILY [facility] Last Admin: 10/16/17 09:11 Dose: 1 gm Oxycodone/Acetaminophen (Percocet 5/325 Mg Tab) 1 tab PO Q4H PRN PRN Reason: BREAKTHROUGH PAIN Stop: 10/17/17 10:28 Last Admin: 10/16/17 13:06 Dose: 1 tab - Labs Labs: 10/16/17 06:30 10/16/17 06:30 PT 13.0 SECONDS (9.7-12.2) H 10/13/17 07:55 INR 1.2 10/13/17 07:55 APTT 35 SECONDS (21-34) H 10/13/17 07:55 Attending/Attestation - Attestation I have personally seen and examined this patient.: Yes I have fully participated in the care of the patient.: Yes I have reviewed all pertinent clinical information, including history, physical exam and plan: Yes Notes (Text): Patient was seen and examined Lying on bed. No complain. Discussed with her son at bedside Patient will be discharge to Rehab. CW is working on rehab placement Discussed with Dr Ramirez and blueprint engineer Dr Macias. Patient will follow blueprint engineer as an out pt case disussed with the resident I agree with the resident's documentation fo the assessment and the plan 10/16/17 16:46
[2017-10-16] MEDS: Albuterol HFA 90 mcg/actuation (8 g) IH SCH ×2 (11:10→19:01)
[2017-10-16] MEDS: Oxycodone/Acetaminophen 5/325 mg Tab PO PRN (13:06)
--- NOTE | 2017-10-16 15:19 | CP.PCM.PN ---
Subjective - Date & Time of Evaluation Date of Evaluation: 10/16/17 Time of Evaluation: 13:50 - Subjective Subjective: Podiatry Consult Note for Dr. Macias 82 y/o female seen at bedside for gangenous right hallux and 2nd digit. Patient is S/P fem-pop bypass POD #3, Pt completed physical therapy earlier this afternoon and is feeling tired with pain to the right leg, which is receeding now that she is in bed. She feels she performed well during therapy. Multipodus boots not inplace at time of evaluation. Right leg pain s/p procedure is regressing. She denies any acute overnight events including F/C/N/V/CP/SOB at present. Objective - Vital Signs/Intake and Output Vital Signs (last 24 hours): Temp Pulse Resp BP Pulse Ox 98.1 F 87 20 138/73 98 10/16/17 07:15 10/16/17 07:15 10/16/17 07:15 10/16/17 09:10 10/16/17 07:15 - Medications Medications: Current Medications Albuterol (Ventolin Hfa 90 Mcg/Actuation (8 G)) 2 puff IH RBID [facility] Last Admin: 10/16/17 11:10 Dose: Not Given Aspirin (Ecotrin) 81 mg PO DAILY [facility] Last Admin: 10/16/17 09:12 Dose: 81 mg Bacitracin (Bacitracin) 1 ea TOP DAILY [facility] Last Admin: 10/16/17 09:11 Dose: 1 ea Clonazepam (Klonopin) 0.5 mg PO HS [facility] Last Admin: 10/15/17 21:22 Dose: 0.5 mg Clopidogrel Bisulfate (Plavix) 75 mg PO DAILY [facility] Last Admin: 10/16/17 09:11 Dose: 75 mg Enalapril Maleate (Vasotec) 20 mg PO DAILY [facility] Last Admin: 10/16/17 09:10 Dose: 20 mg Famotidine (Pepcid) 20 mg PO BID [facility] Last Admin: 10/16/17 09:09 Dose: 20 mg Heparin Sodium (Porcine) (Heparin) 5,000 units SC Q8 [facility] Last Admin: 10/16/17 13:09 Dose: 5,000 units Ciprofloxacin (Cipro 400mg/200ml Dsw) 400 mg in 200 mls @ 133 mls/hr IVPB Q12H [facility] Last Admin: 10/16/17 07:54 Dose: 133 mls/hr Sodium Chloride (Sodium Chloride 0.9%) 1,000 mls @ 110 mls/hr IV .Q9H6M [facility] Last Admin: 10/16/17 05:56 Dose: 110 mls/hr Nrwwc-6-Vtnl Ethyl Esters (Lovaza) 1 gm PO DAILY [facility] Last Admin: 10/16/17 09:11 Dose: 1 gm Oxycodone/Acetaminophen (Percocet 5/325 Mg Tab) 1 tab PO Q4H PRN PRN Reason: BREAKTHROUGH PAIN Stop: 10/17/17 10:28 Last Admin: 10/16/17 13:06 Dose: 1 tab - Labs Labs: 10/16/17 06:30 10/16/17 06:30 PT 13.0 SECONDS (9.7-12.2) H 10/13/17 07:55 INR 1.2 10/13/17 07:55 APTT 35 SECONDS (21-34) H 10/13/17 07:55 - Constitutional Appears: Well, Non-toxic, No Acute Distress - Extremities Exam Additional comments: Right lower extremity focused. Dressing is clean, dry, and intact. Vasc: DP and PT non-palpable, appreciated pedal pulses via doppler. Temperature runs warm to warm proximal to distal. localized edema noted to the 1st and 2nd digit, CFT prompt to digits 3-5, unappreciable to distal vivian of hallux and 2nd digit due to ischemic necrosis, however refill time is prompt with accompanying callor to the healthy skin margins proximal to areas of necrosis. Margins nof ischemic changes marked with skin marker to asses demarcation and potential regressions. Ortho: Mild pain with palpation to 1st and 2nd digit to the right. Mild tnderness to palpation along heels bilaterally, no evidence of deep tissue injury or pre-ulcerative pressure ulcerations. Neuro: gross and protective sensation diminished Derm: Resolved superficial ulceration, with atrophic ischemic dusky skin noted to noted to the aspect of right hallux distal for interphalangeal joint and spect of 2nd digit distal to proximal interphalangeal joint. Mummification of 2nd digit noted. No noted open wound base with no necrosis noted. No evidence of deep tissue injury or pre-ulcerative pressure ulcerations to heels bilaterally heel fatpad intact and skin supply. 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 Macias Labs and vitals reviewed- afebrile, absent leukocytosis. At present, will continue with local wound care. Dressed with betadine and DSD. Discussed with patient and family member, who was present, increasing indication for digital amputation as area of necrosis is now demarcating. Pt understand potential need. - Discussed with pt as she continues through rehabilitation, potential amputations can be performed on an outpatient basis, to allow area of necrosis to fully demarcate. Pt is agreeable to this course of action. Continue multipodus boots at all time/ offload heels while in bed. Podiatry will continue to follow patient while in house
[2017-10-17 08:25] LABS: BASO % 0.3 % (0.0-2.0); EOS # 0.3 K/uL (0.0-0.7); EOS % 3.8 % (0.0-4.0); HEMOGLOBIN 11.2 g/dL (11.0-16.0); LYMPH # 1.2 K/uL (1.0-4.3); LYMPH % 13.3 % (20.0-40.0); MEAN CELL VOLUME 93.9 fL (81.0-99.0); MEAN CORPUSCULAR HEMOGLOBIN 32.6 pg (27.0-31.0); MEAN CORPUSCULAR HGB CONC 34.8 g/dL (33.0-37.0); MEAN PLATELET VOLUME 8.7 fL (7.2-11.7); MONO # 0.6 K/uL (0.0-0.8); MONO % 7.2 % (0.0-10.0); NEUT # 6.6 K/uL (1.8-7.0); NEUT % 75.4 % (50.0-75.0); RBC 3.43 Mil/uL (3.80-5.20); RED CELL DISTRIBUTION WIDTH 14.1 % (11.5-14.5); WHITE BLOOD COUNT 8.8 K/uL (4.8-10.8)
[2017-10-17 08:51] LABS: ALB/GLOB RATIO 1.1 (1.0-2.1); ALT/SGPT 26 U/L (9-52); AST/SGOT 20 U/L (14-36); BLOOD UREA NITROGEN 7 mg/dL (7-17); CALCIUM 8.6 mg/dl (8.6-10.4); GFR AFRICAN-AMERICAN > 60; GFR NON-AFRICAN AMERICAN > 60
[2017-10-17] MEDS: Omega-3-Acid Ethyl Esters 1 GM Cap PO SCH (09:12)
[2017-10-17] MEDS: Bacitracin 500 Units/gm Oint Foilpak UD TOP SCH (09:13)
[2017-10-17] MEDS: Oxycodone/Acetaminophen 5/325 mg Tab PO PRN ×2 (09:13→18:43)
--- NOTE | 2017-10-17 09:22 | CP.PCM.PN ---
Subjective - Date & Time of Evaluation Date of Evaluation: 10/17/17 Time of Evaluation: 07:40 - Subjective Subjective: Vascular Surgery- Dr. Mallory Patient seen and examined at bedside this AM. No acute events overnight. Pain well controlled at this time. palpable graft pulse. leg warm. OOB and ambulating w/ assitance yesterday. Denies F/C CP/SOB N/V/D Objective - Vital Signs/Intake and Output Vital Signs (last 24 hours): Temp Pulse Resp BP Pulse Ox 97.7 F 86 20 137/61 99 10/17/17 00:05 10/17/17 00:05 10/17/17 00:05 10/17/17 09:13 10/17/17 00:05 Intake and Output: 10/17/17 10/17/17 06:59 18:59 Intake Total 260 Balance 260 - Medications Medications: Current Medications Albuterol (Ventolin Hfa 90 Mcg/Actuation (8 G)) 2 puff IH RBID [facility] Last Admin: 10/16/17 19:01 Dose: Not Given Aspirin (Ecotrin) 81 mg PO DAILY [facility] Last Admin: 10/16/17 09:12 Dose: 81 mg Bacitracin (Bacitracin) 1 ea TOP DAILY [facility] Last Admin: 10/17/17 09:13 Dose: 1 ea Ciprofloxacin (Cipro) 500 mg PO Q12H [facility] Last Admin: 10/17/17 09:13 Dose: 500 mg Clonazepam (Klonopin) 0.5 mg PO HS [facility] Last Admin: 10/16/17 21:57 Dose: 0.5 mg Clopidogrel Bisulfate (Plavix) 75 mg PO DAILY [facility] Last Admin: 10/17/17 09:13 Dose: 75 mg Enalapril Maleate (Vasotec) 20 mg PO DAILY [facility] Last Admin: 10/17/17 09:13 Dose: 20 mg Famotidine (Pepcid) 20 mg PO BID [facility] Last Admin: 10/17/17 09:12 Dose: 20 mg Heparin Sodium (Porcine) (Heparin) 5,000 units SC Q8 [facility] Last Admin: 10/17/17 05:19 Dose: 5,000 units Lpxxv-6-Xthr Ethyl Esters (Lovaza) 1 gm PO DAILY [facility] Last Admin: 10/17/17 09:12 Dose: 1 gm Oxycodone/Acetaminophen (Percocet 5/325 Mg Tab) 1 tab PO Q4H PRN PRN Reason: BREAKTHROUGH PAIN Stop: 10/17/17 10:28 Last Admin: 10/17/17 09:13 Dose: 1 tab - Labs Labs: 10/17/17 08:13 10/17/17 08:13 PT 13.0 SECONDS (9.7-12.2) H 10/13/17 07:55 INR 1.2 10/13/17 07:55 APTT 35 SECONDS (21-34) H 10/13/17 07:55 - Constitutional Appears: Non-toxic, No Acute Distress - Eye Exam Eye Exam: EOMI. absent: Scleral icterus - ENT Exam ENT Exam: Mucous Membranes Moist - Respiratory Exam Respiratory Exam: absent: Accessory Muscle Use, Respiratory Distress - Cardiovascular Exam Cardiovascular Exam: +S1, +S2. absent: Bradycardia, Tachycardia - GI/Abdominal Exam GI & Abdominal Exam: Soft. absent: Distended, Firm, Guarding, Rigid, Tenderness - Extremities Exam Additional comments: palpable graft pulse +1 palpable PT pulse dressing C/D/I - Neurological Exam Neurological Exam: Alert, Awake, Oriented x3 - Skin Skin Exam: Intact, Warm Assessment and Plan - Assessment and Plan (Free Text) Assessment: 82F s/p Right popliteal to posterior tibial bypass w/ cryovein; intraoperative arteriogram POD#4. Plan: - c/w asprin and plavix - Aggressive Physical therapy - encourage OOB - full weight bearing - pain control and anti-emetic PRN - discussed w/ Dr. Mallory surgical attending Calvin Paula PGY1
[2017-10-17] MEDS: Albuterol HFA 90 mcg/actuation (8 g) IH SCH ×2 (10:00→19:25)
--- NOTE | 2017-10-17 11:03 | CP.PCM.PN ---
<Nancy Davalos - Last Filed: 10/17/17 11:00> Subjective - Date & Time of Evaluation Date of Evaluation: 10/17/17 Time of Evaluation: 08:00 - Subjective Subjective: Patient seen and examined at bedside. Patient resting comfortably in bed with no new complaints at this time. No acute events overnight per nursing. Patient is having some pain at the surgery site but otherwise denies swelling/erythema, chest pain, SOB, abdominal pain, nausea, vomiting, diarrhea. Objective - Vital Signs/Intake and Output Vital Signs (last 24 hours): Temp Pulse Resp BP Pulse Ox 97.7 F 86 20 137/61 99 10/17/17 00:05 10/17/17 00:05 10/17/17 00:05 10/17/17 09:13 10/17/17 00:05 Intake and Output: 10/17/17 10/17/17 06:59 18:59 Intake Total 260 Balance 260 - Medications Medications: Current Medications Albuterol (Ventolin Hfa 90 Mcg/Actuation (8 G)) 2 puff IH RBID [facility] Last Admin: 10/16/17 19:01 Dose: Not Given Aspirin (Ecotrin) 81 mg PO DAILY [facility] Last Admin: 10/17/17 09:33 Dose: 81 mg Bacitracin (Bacitracin) 1 ea TOP DAILY [facility] Last Admin: 10/17/17 09:13 Dose: 1 ea Ciprofloxacin (Cipro) 500 mg PO Q12H [facility] Last Admin: 10/17/17 09:13 Dose: 500 mg Clonazepam (Klonopin) 0.5 mg PO HS [facility] Last Admin: 10/16/17 21:57 Dose: 0.5 mg Clopidogrel Bisulfate (Plavix) 75 mg PO DAILY [facility] Last Admin: 10/17/17 09:13 Dose: 75 mg Enalapril Maleate (Vasotec) 20 mg PO DAILY [facility] Last Admin: 10/17/17 09:13 Dose: 20 mg Famotidine (Pepcid) 20 mg PO BID [facility] Last Admin: 10/17/17 09:12 Dose: 20 mg Heparin Sodium (Porcine) (Heparin) 5,000 units SC Q8 [facility] Last Admin: 10/17/17 05:19 Dose: 5,000 units Yqbtj-8-Ucsu Ethyl Esters (Lovaza) 1 gm PO DAILY [facility] Last Admin: 10/17/17 09:12 Dose: 1 gm - Labs Labs: 10/17/17 08:13 10/17/17 08:13 PT 13.0 SECONDS (9.7-12.2) H 10/13/17 07:55 INR 1.2 10/13/17 07:55 APTT 35 SECONDS (21-34) H 10/13/17 07:55 - Additional Findings Additional findings: - Constitutional Appears: Non-toxic, No Acute Distress - Head Exam Head Exam: NORMAL INSPECTION - Eye Exam Eye Exam: Normal appearance, PERRL - ENT Exam ENT Exam: Mucous Membranes Moist - Respiratory Exam Respiratory Exam: Clear to Ausculation Bilateral, NORMAL BREATHING PATTERN. absent: Rales, Rhonchi, Wheezes - Cardiovascular Exam Cardiovascular Exam: RRR, +S1, +S2 - GI/Abdominal Exam GI & Abdominal Exam: Soft, Normal Bowel Sounds. absent: Distended, Tenderness - Extremities Exam Extremities Exam: Tenderness (right foot ). absent: Calf Tenderness, Pedal Edema Additional comments: pulses present right leg and foot bandaged, c/d/i - Neurological Exam Neurological Exam: Alert, Awake, Oriented x3 - Psychiatric Exam Psychiatric exam: Normal Affect, Normal Mood - Skin Skin Exam: Dry, Intact, Normal Color, Warm Assessment and Plan - Assessment and Plan (Free Text) Plan: Disposition: Patient s/p popliteal-posterior tibial bypass POD#3 (10/13). PT is seeing patient for aggressive full weight bearing therapy. Podiatry discussed with patient the potential indication for digital amputation should area of necrosis not reconstitute following bypass. Patient is clear for discharge per surgery and podiatry; currently pending KETAN placement Right foot wounds with Hx of PVD Vascular surgery consult with Dr. Mallory, help appreciated * Unable to perform balloon angioplasty - bypass done 10/13/17 * Ordered PT Electrical Test Technician Dr. López consulted for cardiac clearance, help appreciated * Lexiscan stress test negative * Echo showed EF 55-60%, hypertensive heart disease, and diastolic dysfunction * Moderate to intermediate cardiac risk Since patient sent in by Dr. Kasper who does not come to this hospital, we have consulted his colleague Dr. 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 Resumed home ASA 81 mg PO daily Resumed home Plavix 75 mg PO daily Wound cultures ordered by podiatry grew pseudomonas Cipro 400 mg IV Q12H started 10/09 10/16 dsicontinue Morphine 4 mg IV Q6 prn pain 10/16 discontinue Toradol 15 mg IV Q8 prn pain 10/16 started percocet Q4 prn Hypokalemia Monitor and replace as needed History of Hypertension Resumed home Enalapril 20 mg PO daily Prophylactic Measure Heart Healthy Diet NS @110 cc/h Protonix 40 mg PO daily Resumed home Ventolin and Lovaza Heparin 5000 units SC Q8H <Shirin Lake - Last Filed: 10/17/17 13:52> Objective - Vital Signs/Intake and Output Vital Signs (last 24 hours): Temp Pulse Resp BP Pulse Ox 97.7 F 75 20 137/61 99 10/17/17 00:05 10/17/17 09:12 10/17/17 00:05 10/17/17 09:13 10/17/17 00:05 Intake and Output: 10/17/17 10/17/17 06:59 18:59 Intake Total 260 Balance 260 - Medications Medications: Current Medications Albuterol (Ventolin Hfa 90 Mcg/Actuation (8 G)) 2 puff IH RBID [facility] Last Admin: 10/17/17 10:00 Dose: 2 puff Aspirin (Ecotrin) 81 mg PO DAILY [facility] Last Admin: 10/17/17 09:33 Dose: 81 mg Bacitracin (Bacitracin) 1 ea TOP DAILY [facility] Last Admin: 10/17/17 09:13 Dose: 1 ea Ciprofloxacin (Cipro) 500 mg PO Q12H [facility] Last Admin: 10/17/17 09:13 Dose: 500 mg Clonazepam (Klonopin) 0.5 mg PO HS [facility] Last Admin: 10/16/17 21:57 Dose: 0.5 mg Clopidogrel Bisulfate (Plavix) 75 mg PO DAILY [facility] Last Admin: 10/17/17 09:13 Dose: 75 mg Enalapril Maleate (Vasotec) 20 mg PO DAILY [facility] Last Admin: 10/17/17 09:13 Dose: 20 mg Famotidine (Pepcid) 20 mg PO BID [facility] Last Admin: 10/17/17 09:12 Dose: 20 mg Heparin Sodium (Porcine) (Heparin) 5,000 units SC Q8 [facility] Last Admin: 10/17/17 05:19 Dose: 5,000 units Ntedz-7-Cafa Ethyl Esters (Lovaza) 1 gm PO DAILY [facility] Last Admin: 10/17/17 09:12 Dose: 1 gm - Labs Labs: 10/17/17 08:13 10/17/17 08:13 PT 13.0 SECONDS (9.7-12.2) H 10/13/17 07:55 INR 1.2 10/13/17 07:55 APTT 35 SECONDS (21-34) H 10/13/17 07:55 Attending/Attestation - Attestation I have personally seen and examined this patient.: Yes I have fully participated in the care of the patient.: Yes I have reviewed all pertinent clinical information, including history, physical exam and plan: Yes Notes (Text): Seen and examined patient is lying down. no complain,right les swelling is better d/w son at bedside Continue current meds Pending discharge to subacute rehab d/w CW about discharge yesterday
--- NOTE | 2017-10-17 13:19 | CP.PCM.PN ---
Subjective - Date & Time of Evaluation Date of Evaluation: 10/17/17 Time of Evaluation: 11:00 - Subjective Subjective: Progress Note for Dr. Macias 82 y/o female seen at bedside for gangenous right hallux and 2nd digit. Patient is S/P fem-pop bypass POD #3. Patient is seen at bedside with her son. Patient' s son reports of no acute overnight events. Patient is AAOx3 and is in NAD. Patient denies of any overnight F/N/V/C/SOB/CP. Patient offers no pedal complains at this time. Objective - Vital Signs/Intake and Output Vital Signs (last 24 hours): Temp Pulse Resp BP Pulse Ox 97.7 F 75 20 137/61 99 10/17/17 00:05 10/17/17 09:12 10/17/17 00:05 10/17/17 09:13 10/17/17 00:05 Intake and Output: 10/17/17 10/17/17 06:59 18:59 Intake Total 260 Balance 260 - Medications Medications: Current Medications Albuterol (Ventolin Hfa 90 Mcg/Actuation (8 G)) 2 puff IH RBID [facility] Last Admin: 10/17/17 10:00 Dose: 2 puff Aspirin (Ecotrin) 81 mg PO DAILY [facility] Last Admin: 10/17/17 09:33 Dose: 81 mg Bacitracin (Bacitracin) 1 ea TOP DAILY [facility] Last Admin: 10/17/17 09:13 Dose: 1 ea Ciprofloxacin (Cipro) 500 mg PO Q12H [facility] Last Admin: 10/17/17 09:13 Dose: 500 mg Clonazepam (Klonopin) 0.5 mg PO HS [facility] Last Admin: 10/16/17 21:57 Dose: 0.5 mg Clopidogrel Bisulfate (Plavix) 75 mg PO DAILY [facility] Last Admin: 10/17/17 09:13 Dose: 75 mg Enalapril Maleate (Vasotec) 20 mg PO DAILY [facility] Last Admin: 10/17/17 09:13 Dose: 20 mg Famotidine (Pepcid) 20 mg PO BID [facility] Last Admin: 10/17/17 09:12 Dose: 20 mg Heparin Sodium (Porcine) (Heparin) 5,000 units SC Q8 [facility] Last Admin: 10/17/17 05:19 Dose: 5,000 units Usuli-6-Ujas Ethyl Esters (Lovaza) 1 gm PO DAILY [facility] Last Admin: 10/17/17 09:12 Dose: 1 gm - Labs Labs: 10/17/17 08:13 10/17/17 08:13 PT 13.0 SECONDS (9.7-12.2) H 10/13/17 07:55 INR 1.2 10/13/17 07:55 APTT 35 SECONDS (21-34) H 10/13/17 07:55 - Constitutional Appears: Well, Non-toxic, No Acute Distress - Extremities Exam Additional comments: Right lower extremity focused. Dressing is clean, dry, and intact. Vasc: DP and PT pulses are palpable 1/4, Temperature runs warm to warm proximal to distal. localized edema noted to the 1st and 2nd digit, Cap refill time to remaining digits: < 3 sec, unappreciable to distal vivian of hallux and 2nd digit due to ischemic necrosis, however refill time is prompt with accompanying callor to the healthy skin margins proximal to areas of necrosis. Margins of ischemic changes marked with skin marker to asses demarcation and potential regressions. Ortho: Mild pain with palpation to 1st and 2nd digit to the right. Mild tnderness to palpation along heels bilaterally, no evidence of deep tissue injury or pre-ulcerative pressure ulcerations. Neuro: gross and protective sensation diminished Derm: Resolved superficial ulceration, with atrophic ischemic dusky skin noted to noted to the aspect of right hallux distal for interphalangeal joint and spect of 2nd digit distal to proximal interphalangeal joint. Mummification of 2nd digit noted. No noted open wound base with no necrosis noted. No evidence of deep tissue injury or pre-ulcerative pressure ulcerations to heels bilaterally heel fatpad intact and skin supply. 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 Macias Labs and vitals reviewed- afebrile, absent leukocytosis. At present, will continue with local wound care. Dressed with betadine and DSD. Discussed with patient and family member, who was present, increasing indication for digital amputation as area of necrosis is now demarcating. Pt understand potential need. - Discussed with pt as she continues through rehabilitation, potential amputations can be performed on an outpatient basis, to allow area of necrosis to fully demarcate. Pt is agreeable to this course of action. Continue multipodus boots at all time/ offload heels while in bed. Podiatry will continue to follow patient while in house
[2017-10-18] MEDS: Oxycodone/Acetaminophen 5/325 mg Tab PO PRN ×3 (00:21→21:39)
--- NOTE | 2017-10-18 00:56 | CP.PCM.PN ---
<Patti Dsouzaa - Last Filed: 10/18/17 00:54> Subjective - Date & Time of Evaluation Date of Evaluation: 10/18/17 Time of Evaluation: 00:54 - Subjective Subjective: Medicine Note for Hospitalist Service- Dr. Lake Patient was seen and examined at bedside. No acute complaints. Patient is resting in bed comfortably. Denied fever, chills, headache, chest pain, SOB, abdominal pain, n/v/d/c, or urinary symptoms. Objective - Vital Signs/Intake and Output Vital Signs (last 24 hours): Temp Pulse Resp BP Pulse Ox 98 F 81 18 130/69 100 10/17/17 21:42 10/17/17 21:42 10/17/17 21:42 10/17/17 21:42 10/17/17 17:50 Intake and Output: 10/17/17 10/18/17 18:59 06:59 Intake Total 600 100 Balance 600 100 - Medications Medications: Current Medications Albuterol (Ventolin Hfa 90 Mcg/Actuation (8 G)) 2 puff IH RBID [facility] Last Admin: 10/17/17 19:25 Dose: 2 puff Aspirin (Ecotrin) 81 mg PO DAILY [facility] Last Admin: 10/17/17 09:33 Dose: 81 mg Bacitracin (Bacitracin) 1 ea TOP DAILY [facility] Last Admin: 10/17/17 09:13 Dose: 1 ea Ciprofloxacin (Cipro) 500 mg PO Q12H [facility] Last Admin: 10/17/17 19:51 Dose: 500 mg Clonazepam (Klonopin) 0.5 mg PO HS [facility] Last Admin: 10/17/17 21:45 Dose: 0.5 mg Clopidogrel Bisulfate (Plavix) 75 mg PO DAILY [facility] Last Admin: 10/17/17 09:13 Dose: 75 mg Enalapril Maleate (Vasotec) 20 mg PO DAILY [facility] Last Admin: 10/17/17 09:13 Dose: 20 mg Famotidine (Pepcid) 20 mg PO BID [facility] Last Admin: 10/17/17 17:59 Dose: 20 mg Heparin Sodium (Porcine) (Heparin) 5,000 units SC Q8 [facility] Last Admin: 10/17/17 21:45 Dose: 5,000 units Lsjfj-2-Tfyg Ethyl Esters (Lovaza) 1 gm PO DAILY [facility] Last Admin: 10/17/17 09:12 Dose: 1 gm Oxycodone/Acetaminophen (Percocet 5/325 Mg Tab) 1 tab PO Q4H PRN PRN Reason: Pain, severe (8-10) Stop: 10/20/17 14:55 Last Admin: 10/18/17 00:21 Dose: 1 tab - Labs Labs: 10/17/17 08:13 10/17/17 08:13 PT 13.0 SECONDS (9.7-12.2) H 10/13/17 07:55 INR 1.2 10/13/17 07:55 APTT 35 SECONDS (21-34) H 10/13/17 07:55 - Additional Findings Additional findings: - Constitutional Appears: Non-toxic, No Acute Distress - Head Exam Head Exam: NORMAL INSPECTION - Eye Exam Eye Exam: Normal appearance, PERRL - ENT Exam ENT Exam: Mucous Membranes Moist - Respiratory Exam Respiratory Exam: Clear to Ausculation Bilateral, NORMAL BREATHING PATTERN. absent: Rales, Rhonchi, Wheezes - Cardiovascular Exam Cardiovascular Exam: RRR, +S1, +S2 - GI/Abdominal Exam GI & Abdominal Exam: Soft, Normal Bowel Sounds. absent: Distended, Tenderness - Extremities Exam Extremities Exam: Tenderness (right foot ). absent: Calf Tenderness, Pedal Edema Additional comments: pulses present right leg and foot bandaged, c/d/i - Neurological Exam Neurological Exam: Alert, Awake, Oriented x3 - Psychiatric Exam Psychiatric exam: Normal Affect, Normal Mood - Skin Skin Exam: Dry, Intact, Normal Color, Warm Assessment and Plan - Assessment and Plan (Free Text) Plan: Disposition: Patient s/p popliteal-posterior tibial bypass POD#3 (10/13). PT is seeing patient for aggressive full weight bearing therapy. Podiatry discussed with patient the potential indication for digital amputation should area of necrosis not reconstitute following bypass. Patient is clear for discharge per surgery and podiatry; currently pending KETAN placement Right foot wounds with Hx of PVD Vascular surgery consult with Dr. Mallory, help appreciated * Unable to perform balloon angioplasty - bypass done 10/13/17 * Ordered PT Candle Making Supervisor Dr. López consulted for cardiac clearance, help appreciated * Lexiscan stress test negative * Echo showed EF 55-60%, hypertensive heart disease, and diastolic dysfunction * Moderate to intermediate cardiac risk Since patient sent in by Dr. Kasper who does not come to this hospital, we have consulted his colleague Dr. 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 Resumed home ASA 81 mg PO daily Resumed home Plavix 75 mg PO daily Wound cultures ordered by podiatry grew pseudomonas Cipro 400 mg IV Q12H started 10/09 10/16 dsicontinue Morphine 4 mg IV Q6 prn pain 10/16 discontinue Toradol 15 mg IV Q8 prn pain 10/16 started percocet Q4 prn Hypokalemia Monitor and replace as needed History of Hypertension Resumed home Enalapril 20 mg PO daily Prophylactic Measure Heart Healthy Diet NS @110 cc/h Protonix 40 mg PO daily Resumed home Ventolin and Lovaza Heparin 5000 units SC Q[address]H DW Dr. Lake, Simin Dsouza DO, PGY-1 <Shirin Lake - Last Filed: 10/18/17 13:50> Objective - Vital Signs/Intake and Output Vital Signs (last 24 hours): Temp Pulse Resp BP Pulse Ox 98.0 F 76 18 137/58 L 98 10/18/17 07:15 10/18/17 10:59 10/18/17 07:15 10/18/17 11:00 10/18/17 07:15 Intake and Output: 10/18/17 10/18/17 06:59 18:59 Intake Total 100 Balance 100 - Medications Medications: Current Medications Albuterol (Ventolin Hfa 90 Mcg/Actuation (8 G)) 2 puff IH RBID [facility] Last Admin: 10/18/17 09:00 Dose: 2 puff Aspirin (Ecotrin) 81 mg PO DAILY [facility] Last Admin: 10/18/17 11:00 Dose: 81 mg Bacitracin (Bacitracin) 1 ea TOP DAILY [facility] Last Admin: 10/18/17 11:02 Dose: 1 ea Ciprofloxacin (Cipro) 500 mg PO Q12H [facility] Last Admin: 10/18/17 08:25 Dose: 500 mg Clonazepam (Klonopin) 0.5 mg PO HS [facility] Last Admin: 10/17/17 21:45 Dose: 0.5 mg Clopidogrel Bisulfate (Plavix) 75 mg PO DAILY [facility] Last Admin: 10/18/17 11:00 Dose: 75 mg Enalapril Maleate (Vasotec) 20 mg PO DAILY [facility] Last Admin: 10/18/17 11:00 Dose: 20 mg Famotidine (Pepcid) 20 mg PO BID [facility] Last Admin: 10/18/17 11:00 Dose: 20 mg Heparin Sodium (Porcine) (Heparin) 5,000 units SC Q8 [facility] Last Admin: 10/18/17 05:28 Dose: 5,000 units Dmdxp-3-Yorx Ethyl Esters (Lovaza) 1 gm PO DAILY [facility] Last Admin: 10/18/17 11:00 Dose: 1 gm Oxycodone/Acetaminophen (Percocet 5/325 Mg Tab) 1 tab PO Q4H PRN PRN Reason: Pain, severe (8-10) Stop: 10/20/17 14:55 Last Admin: 10/18/17 11:00 Dose: 1 tab - Labs Labs: 10/18/17 08:24 10/18/17 08:24 PT 13.0 SECONDS (9.7-12.2) H 10/13/17 07:55 INR 1.2 10/13/17 07:55 APTT 35 SECONDS (21-34) H 10/13/17 07:55 Attending/Attestation - Attestation I have personally seen and examined this patient.: Yes I have fully participated in the care of the patient.: Yes I have reviewed all pertinent clinical information, including history, physical exam and plan: Yes Notes (Text): Seen and examined Patient has no complain. Able to ambulate with support and a walker as per his son. case discussed with the curator medical museum. Discharge to rehab when bed is ready. I agree with the resident's documentation of the assessment and the plan.
--- NOTE | 2017-10-18 08:00 | CP.PCM.PN ---
Subjective - Date & Time of Evaluation Date of Evaluation: 10/16/17 Time of Evaluation: 07:30 - Subjective Subjective: Patient seen and evaluated No cardiac events noted Denies chest pain and dyspnea Continue all medications Objective - Vital Signs/Intake and Output Vital Signs (last 24 hours): Temp Pulse Resp BP Pulse Ox 98.2 F 78 18 109/44 L 98 10/18/17 01:03 10/18/17 01:03 10/18/17 01:03 10/18/17 01:03 10/18/17 01:03 Intake and Output: 10/18/17 10/18/17 06:59 18:59 Intake Total 100 Balance 100 - Medications Medications: Current Medications Albuterol (Ventolin Hfa 90 Mcg/Actuation (8 G)) 2 puff IH RBID [facility] Last Admin: 10/17/17 19:25 Dose: 2 puff Aspirin (Ecotrin) 81 mg PO DAILY [facility] Last Admin: 10/17/17 09:33 Dose: 81 mg Bacitracin (Bacitracin) 1 ea TOP DAILY [facility] Last Admin: 10/17/17 09:13 Dose: 1 ea Ciprofloxacin (Cipro) 500 mg PO Q12H [facility] Last Admin: 10/17/17 19:51 Dose: 500 mg Clonazepam (Klonopin) 0.5 mg PO HS [facility] Last Admin: 10/17/17 21:45 Dose: 0.5 mg Clopidogrel Bisulfate (Plavix) 75 mg PO DAILY [facility] Last Admin: 10/17/17 09:13 Dose: 75 mg Enalapril Maleate (Vasotec) 20 mg PO DAILY [facility] Last Admin: 10/17/17 09:13 Dose: 20 mg Famotidine (Pepcid) 20 mg PO BID [facility] Last Admin: 10/17/17 17:59 Dose: 20 mg Heparin Sodium (Porcine) (Heparin) 5,000 units SC Q8 [facility] Last Admin: 10/18/17 05:28 Dose: 5,000 units Mbdlf-1-Crxo Ethyl Esters (Lovaza) 1 gm PO DAILY [facility] Last Admin: 10/17/17 09:12 Dose: 1 gm Oxycodone/Acetaminophen (Percocet 5/325 Mg Tab) 1 tab PO Q4H PRN PRN Reason: Pain, severe (8-10) Stop: 10/20/17 14:55 Last Admin: 10/18/17 00:21 Dose: 1 tab - Labs Labs: 10/17/17 08:13 10/17/17 08:13 PT 13.0 SECONDS (9.7-12.2) H 10/13/17 07:55 INR 1.2 10/13/17 07:55 APTT 35 SECONDS (21-34) H 10/13/17 07:55
--- NOTE | 2017-10-18 08:01 | CP.PCM.PN ---
Subjective - Date & Time of Evaluation Date of Evaluation: 10/17/17 Time of Evaluation: 10:40 - Subjective Subjective: Patient seen and evaluated No cardiac events noted Denies chest pain and dyspnea Continue all medications No further cardiac work up planned out patient follow up Objective - Vital Signs/Intake and Output Vital Signs (last 24 hours): Temp Pulse Resp BP Pulse Ox 98.2 F 78 18 109/44 L 98 10/18/17 01:03 10/18/17 01:03 10/18/17 01:03 10/18/17 01:03 10/18/17 01:03 Intake and Output: 10/18/17 10/18/17 06:59 18:59 Intake Total 100 Balance 100 - Medications Medications: Current Medications Albuterol (Ventolin Hfa 90 Mcg/Actuation (8 G)) 2 puff IH RBID [facility] Last Admin: 10/17/17 19:25 Dose: 2 puff Aspirin (Ecotrin) 81 mg PO DAILY [facility] Last Admin: 10/17/17 09:33 Dose: 81 mg Bacitracin (Bacitracin) 1 ea TOP DAILY [facility] Last Admin: 10/17/17 09:13 Dose: 1 ea Ciprofloxacin (Cipro) 500 mg PO Q12H [facility] Last Admin: 10/17/17 19:51 Dose: 500 mg Clonazepam (Klonopin) 0.5 mg PO HS [facility] Last Admin: 10/17/17 21:45 Dose: 0.5 mg Clopidogrel Bisulfate (Plavix) 75 mg PO DAILY [facility] Last Admin: 10/17/17 09:13 Dose: 75 mg Enalapril Maleate (Vasotec) 20 mg PO DAILY [facility] Last Admin: 10/17/17 09:13 Dose: 20 mg Famotidine (Pepcid) 20 mg PO BID [facility] Last Admin: 10/17/17 17:59 Dose: 20 mg Heparin Sodium (Porcine) (Heparin) 5,000 units SC Q8 [facility] Last Admin: 10/18/17 05:28 Dose: 5,000 units Aukwn-7-Tdhn Ethyl Esters (Lovaza) 1 gm PO DAILY [facility] Last Admin: 10/17/17 09:12 Dose: 1 gm Oxycodone/Acetaminophen (Percocet 5/325 Mg Tab) 1 tab PO Q4H PRN PRN Reason: Pain, severe (8-10) Stop: 10/20/17 14:55 Last Admin: 10/18/17 00:21 Dose: 1 tab - Labs Labs: 10/17/17 08:13 10/17/17 08:13 PT 13.0 SECONDS (9.7-12.2) H 10/13/17 07:55 INR 1.2 10/13/17 07:55 APTT 35 SECONDS (21-34) H 10/13/17 07:55
[2017-10-18 08:31] LABS: BASO % 0.7 % (0.0-2.0); EOS # 0.3 K/uL (0.0-0.7); EOS % 5.3 % (0.0-4.0); HEMOGLOBIN 9.8 g/dL (11.0-16.0); LYMPH # 1.5 K/uL (1.0-4.3); LYMPH % 22.6 % (20.0-40.0); MEAN CELL VOLUME 94.1 fL (81.0-99.0); MEAN CORPUSCULAR HEMOGLOBIN 31.8 pg (27.0-31.0); MEAN CORPUSCULAR HGB CONC 33.8 g/dL (33.0-37.0); MONO # 0.7 K/uL (0.0-0.8); MONO % 10.2 % (0.0-10.0); NEUT # 4.1 K/uL (1.8-7.0); NEUT % 61.2 % (50.0-75.0); RBC 3.09 Mil/uL (3.80-5.20); RED CELL DISTRIBUTION WIDTH 13.6 % (11.5-14.5); WHITE BLOOD COUNT 6.7 K/uL (4.8-10.8)
[2017-10-18] MEDS: Albuterol HFA 90 mcg/actuation (8 g) IH SCH ×2 (09:00→20:43)
[2017-10-18 09:15] LABS: ALB/GLOB RATIO 1.1 (1.0-2.1); ALBUMIN 2.7 g/dL (3.5-5.0); ALT/SGPT 22 U/L (9-52); AST/SGOT 26 U/L (14-36); BLOOD UREA NITROGEN 15 mg/dL (7-17); CALCIUM 8.3 mg/dl (8.6-10.4); GFR AFRICAN-AMERICAN > 60; GFR NON-AFRICAN AMERICAN > 60
[2017-10-18] MEDS: Bacitracin 500 Units/gm Oint Foilpak UD TOP SCH (10:31)
--- NOTE | 2017-10-18 10:38 | CP.PCM.PN ---
Subjective - Date & Time of Evaluation Date of Evaluation: 10/18/17 Time of Evaluation: 06:45 - Subjective Subjective: Vascular Surgery Dr. Mallory Pt S&E @bedside. NAEO. pain significantly improved. OOB to chair/bathroom. denies F/C, N/V. tolerating diet. Objective - Vital Signs/Intake and Output Vital Signs (last 24 hours): Temp Pulse Resp BP Pulse Ox 98.0 F 76 18 115/52 L 98 10/18/17 07:15 10/18/17 07:15 10/18/17 07:15 10/18/17 07:15 10/18/17 07:15 Intake and Output: 10/18/17 10/18/17 06:59 18:59 Intake Total 100 Balance 100 - Medications Medications: Current Medications Albuterol (Ventolin Hfa 90 Mcg/Actuation (8 G)) 2 puff IH RBID REPLACED BY [facility] Last Admin: 10/17/17 19:25 Dose: 2 puff Aspirin (Ecotrin) 81 mg PO DAILY REPLACED BY [facility] Last Admin: 10/17/17 09:33 Dose: 81 mg Bacitracin (Bacitracin) 1 ea TOP DAILY REPLACED BY [facility] Last Admin: 10/17/17 09:13 Dose: 1 ea Ciprofloxacin (Cipro) 500 mg PO Q12H REPLACED BY [facility] Last Admin: 10/18/17 08:25 Dose: 500 mg Clonazepam (Klonopin) 0.5 mg PO HS REPLACED BY [facility] Last Admin: 10/17/17 21:45 Dose: 0.5 mg Clopidogrel Bisulfate (Plavix) 75 mg PO DAILY REPLACED BY [facility] Last Admin: 10/17/17 09:13 Dose: 75 mg Enalapril Maleate (Vasotec) 20 mg PO DAILY REPLACED BY [facility] Last Admin: 10/17/17 09:13 Dose: 20 mg Famotidine (Pepcid) 20 mg PO BID REPLACED BY [facility] Last Admin: 10/17/17 17:59 Dose: 20 mg Heparin Sodium (Porcine) (Heparin) 5,000 units SC Q8 REPLACED BY [facility] Last Admin: 10/18/17 05:28 Dose: 5,000 units Hdrcp-0-Rfqc Ethyl Esters (Lovaza) 1 gm PO DAILY REPLACED BY [facility] Last Admin: 10/17/17 09:12 Dose: 1 gm Oxycodone/Acetaminophen (Percocet 5/325 Mg Tab) 1 tab PO Q4H PRN PRN Reason: Pain, severe (8-10) Stop: 10/20/17 14:55 Last Admin: 10/18/17 00:21 Dose: 1 tab - Labs Labs: 10/18/17 08:24 10/18/17 08:24 PT 13.0 SECONDS (9.7-12.2) H 10/13/17 07:55 INR 1.2 10/13/17 07:55 APTT 35 SECONDS (21-34) H 10/13/17 07:55 - Constitutional Appears: Non-toxic, No Acute Distress - Head Exam Head Exam: NORMAL INSPECTION - Eye Exam Eye Exam: Normal appearance - ENT Exam ENT Exam: Mucous Membranes Moist - Respiratory Exam Respiratory Exam: NORMAL BREATHING PATTERN. absent: Accessory Muscle Use, Respiratory Distress - GI/Abdominal Exam GI & Abdominal Exam: Soft. absent: Distended, Tenderness - Extremities Exam Additional comments: palpable graft pulse dressing c/d/i - Neurological Exam Neurological Exam: Alert, Awake - Psychiatric Exam Psychiatric exam: Normal Affect, Normal Mood - Skin Skin Exam: Dry, Normal Color, Warm Assessment and Plan - Assessment and Plan (Free Text) Assessment: 82 y/o F POD#5 s/p Right popliteal to posterior tibial bypass w/ cryovein and intraoperative arteriogram - cont ASA and plavix - cont pain management - encourage OOB to chair/Amb/IS use - Aggressive Physical therapy w/ full weight bearing - pt cleared for discharge to rehab once placement arranged Pt discussed w/ Dr. Mohamud David DO PGY2
[2017-10-18] MEDS: Omega-3-Acid Ethyl Esters 1 GM Cap PO SCH (11:00)
--- NOTE | 2017-10-18 13:28 | CP.PCM.PN ---
Subjective - Date & Time of Evaluation Date of Evaluation: 10/18/17 Time of Evaluation: 10:20 - Subjective Subjective: Progress Note for Dr. Macias 82 y/o female seen at bedside for gangenous right hallux and 2nd digit. Patient is S/P fem-pop bypass POD #4. Patient is seen at bedside with her son. Patient' s son reports of no acute overnight events. Patient is AAOx3 and is in NAD. Patient denies of any overnight F/N/V/C/SOB/CP. Patient offers no pedal complains at this time. Objective - Vital Signs/Intake and Output Vital Signs (last 24 hours): Temp Pulse Resp BP Pulse Ox 98.0 F 76 18 137/58 L 98 10/18/17 07:15 10/18/17 10:59 10/18/17 07:15 10/18/17 11:00 10/18/17 07:15 Intake and Output: 10/18/17 10/18/17 06:59 18:59 Intake Total 100 Balance 100 - Medications Medications: Current Medications Albuterol (Ventolin Hfa 90 Mcg/Actuation (8 G)) 2 puff IH RBID [facility] Last Admin: 10/18/17 09:00 Dose: 2 puff Aspirin (Ecotrin) 81 mg PO DAILY [facility] Last Admin: 10/18/17 11:00 Dose: 81 mg Bacitracin (Bacitracin) 1 ea TOP DAILY [facility] Last Admin: 10/18/17 11:02 Dose: 1 ea Ciprofloxacin (Cipro) 500 mg PO Q12H [facility] Last Admin: 10/18/17 08:25 Dose: 500 mg Clonazepam (Klonopin) 0.5 mg PO HS [facility] Last Admin: 10/17/17 21:45 Dose: 0.5 mg Clopidogrel Bisulfate (Plavix) 75 mg PO DAILY [facility] Last Admin: 10/18/17 11:00 Dose: 75 mg Enalapril Maleate (Vasotec) 20 mg PO DAILY [facility] Last Admin: 10/18/17 11:00 Dose: 20 mg Famotidine (Pepcid) 20 mg PO BID [facility] Last Admin: 10/18/17 11:00 Dose: 20 mg Heparin Sodium (Porcine) (Heparin) 5,000 units SC Q8 [facility] Last Admin: 10/18/17 05:28 Dose: 5,000 units Amftt-4-Xdzb Ethyl Esters (Lovaza) 1 gm PO DAILY [facility] Last Admin: 10/18/17 11:00 Dose: 1 gm Oxycodone/Acetaminophen (Percocet 5/325 Mg Tab) 1 tab PO Q4H PRN PRN Reason: Pain, severe (8-10) Stop: 10/20/17 14:55 Last Admin: 10/18/17 11:00 Dose: 1 tab - Labs Labs: 10/18/17 08:24 10/18/17 08:24 PT 13.0 SECONDS (9.7-12.2) H 10/13/17 07:55 INR 1.2 10/13/17 07:55 APTT 35 SECONDS (21-34) H 10/13/17 07:55 - Constitutional Appears: Well, Non-toxic, No Acute Distress - Extremities Exam Additional comments: Right lower extremity focused. Dressing is clean, dry, and intact. Vasc: DP and PT pulses are palpable 1/4, Temperature runs warm to warm proximal to distal. localized edema noted to the 1st and 2nd digit, Cap refill time to remaining digits: < 3 sec, unappreciable to distal vivian of hallux and 2nd digit due to ischemic necrosis, however refill time is prompt with accompanying callor to the healthy skin margins proximal to areas of necrosis. Margins of ischemic changes marked with skin marker to asses demarcation and potential regressions. Ortho: Mild pain with palpation to 1st and 2nd digit to the right. Mild tnderness to palpation along heels bilaterally, no evidence of deep tissue injury or pre-ulcerative pressure ulcerations. Neuro: gross and protective sensation diminished Derm: Resolved superficial ulceration, with atrophic ischemic dusky skin noted to noted to the aspect of right hallux distal for interphalangeal joint and spect of 2nd digit distal to proximal interphalangeal joint. Mummification of 2nd digit noted. No noted open wound base with no necrosis noted. No evidence of deep tissue injury or pre-ulcerative pressure ulcerations to heels bilaterally heel fatpad intact and skin supply. 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 Macias Labs and vitals reviewed- afebrile, absent leukocytosis. At present, will continue with local wound care. Dressed with betadine and DSD. Discussed with patient and family member, who was present, increasing indication for digital amputation as area of necrosis is now demarcating. Pt understand potential need. - Discussed with pt as she continues through rehabilitation, potential amputations can be performed on an outpatient basis, to allow area of necrosis to fully demarcate. Pt is agreeable to this course of action. Continue multipodus boots at all time/ offload heels while in bed. Podiatry will continue to follow patient while in house
[2017-10-18 16:47] VITALS: RESP 20
[2017-10-19] MEDS: Albuterol HFA 90 mcg/actuation (8 g) IH SCH (07:24)
--- NOTE | 2017-10-19 09:43 | CP.PCM.PN ---
Subjective - Date & Time of Evaluation Date of Evaluation: 10/19/17 Time of Evaluation: 07:00 - Subjective Subjective: Patient seen and examined at bedside. Patient resting comfortably in bed with no new complaints at this time. No acute events overnight. Patient still complaining of pain in her right leg but it is controlled with her current pain management regimen. Patient denies chest pain, SOB, cough, abdominal pain, N&V, diarrhea, new leg swelling, and pain in the left leg. Objective - Vital Signs/Intake and Output Vital Signs (last 24 hours): Temp Pulse Resp BP Pulse Ox 98.3 F 72 20 124/65 100 10/19/17 07:20 10/19/17 07:20 10/19/17 07:20 10/19/17 07:20 10/19/17 07:20 - Medications Medications: Current Medications Albuterol (Ventolin Hfa 90 Mcg/Actuation (8 G)) 2 puff IH RBID [facility] Last Admin: 10/19/17 07:24 Dose: 1 puff Aspirin (Ecotrin) 81 mg PO DAILY [facility] Last Admin: 10/18/17 11:00 Dose: 81 mg Bacitracin (Bacitracin) 1 ea TOP DAILY [facility] Last Admin: 10/18/17 10:31 Dose: 1 ea Ciprofloxacin (Cipro) 500 mg PO Q12H [facility] Last Admin: 10/18/17 21:39 Dose: 500 mg Clonazepam (Klonopin) 0.5 mg PO HS [facility] Last Admin: 10/18/17 21:38 Dose: 0.5 mg Clopidogrel Bisulfate (Plavix) 75 mg PO DAILY [facility] Last Admin: 10/18/17 11:00 Dose: 75 mg Enalapril Maleate (Vasotec) 20 mg PO DAILY [facility] Last Admin: 10/18/17 11:00 Dose: 20 mg Famotidine (Pepcid) 20 mg PO BID [facility] Last Admin: 10/18/17 18:14 Dose: 20 mg Heparin Sodium (Porcine) (Heparin) 5,000 units SC Q8 [facility] Last Admin: 10/19/17 05:41 Dose: 5,000 units Rejmw-5-Ymvs Ethyl Esters (Lovaza) 1 gm PO DAILY [facility] Last Admin: 10/18/17 11:00 Dose: 1 gm Oxycodone/Acetaminophen (Percocet 5/325 Mg Tab) 1 tab PO Q4H PRN PRN Reason: Pain, severe (8-10) Stop: 10/20/17 14:55 Last Admin: 10/18/17 21:39 Dose: 1 tab - Labs Labs: 10/18/17 08:24 10/18/17 08:24 PT 13.0 SECONDS (9.7-12.2) H 10/13/17 07:55 INR 1.2 10/13/17 07:55 APTT 35 SECONDS (21-34) H 10/13/17 07:55 - Additional Findings Additional findings: - Constitutional Appears: Non-toxic, No Acute Distress - Head Exam Head Exam: NORMAL INSPECTION - Eye Exam Eye Exam: Normal appearance, PERRL - ENT Exam ENT Exam: Mucous Membranes Moist - Respiratory Exam Respiratory Exam: Clear to Ausculation Bilateral, NORMAL BREATHING PATTERN. absent: Rales, Rhonchi, Wheezes - Cardiovascular Exam Cardiovascular Exam: RRR, +S1, +S2 - GI/Abdominal Exam GI & Abdominal Exam: Soft, Normal Bowel Sounds. absent: Distended, Tenderness - Extremities Exam Extremities Exam: Tenderness (right foot ). absent: Calf Tenderness, Pedal Edema Additional comments: pulses present right leg and foot bandaged, c/d/i - Neurological Exam Neurological Exam: Alert, Awake, Oriented x3 - Psychiatric Exam Psychiatric exam: Normal Affect, Normal Mood - Skin Skin Exam: Dry, Intact, Normal Color, Warm Assessment and Plan - Assessment and Plan (Free Text) Plan: Disposition: Patient s/p popliteal-posterior tibial bypass POD#6 (10/13). PT is seeing patient for aggressive full weight bearing therapy. Podiatry discussed with patient the potential indication for digital amputation should area of necrosis not reconstitute following bypass. Patient is clear for discharge per surgery and podiatry; currently pending [facility] placement Right foot wounds with Hx of PVD Vascular surgery consult with Dr. Mallory, help appreciated * Unable to perform balloon angioplasty - bypass done 10/13/17 * Ordered PT Director Of Regulatory Affairs Dr. López consulted for cardiac clearance, help appreciated * Lexiscan stress test negative * Echo showed EF 55-60%, hypertensive heart disease, and diastolic dysfunction * Moderate to intermediate cardiac risk Since patient sent in by Dr. Kasper who does not come to this hospital, we have consulted his colleague Dr. 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 Resumed home ASA 81 mg PO daily Resumed home Plavix 75 mg PO daily Wound cultures ordered by podiatry grew pseudomonas Cipro 400 mg IV Q12H started 10/09 10/16 dsicontinue Morphine 4 mg IV Q6 prn pain 10/16 discontinue Toradol 15 mg IV Q8 prn pain 10/16 started percocet Q4 prn Hypokalemia Monitor and replace as needed History of Hypertension Resumed home Enalapril 20 mg PO daily Prophylactic Measure Heart Healthy Diet NS @110 cc/h Protonix 40 mg PO daily Resumed home Ventolin and Lovaza Heparin 5000 units SC Q8H
--- NOTE | 2017-10-19 09:45 | CP.PCM.PN ---
Subjective - Date & Time of Evaluation Date of Evaluation: 10/19/17 Time of Evaluation: 06:30 - Subjective Subjective: Vascular Surgery- Dr. Mallory Pt S&E @bedside. NAEO. pain significantly improved. OOB to chair/bathroom. denies F/C, N/V. tolerating diet. Objective - Vital Signs/Intake and Output Vital Signs (last 24 hours): Temp Pulse Resp BP Pulse Ox 98.3 F 72 20 124/65 100 10/19/17 07:20 10/19/17 07:20 10/19/17 07:20 10/19/17 07:20 10/19/17 07:20 - Medications Medications: Current Medications Albuterol (Ventolin Hfa 90 Mcg/Actuation (8 G)) 2 puff IH RBID [facility] Last Admin: 10/19/17 07:24 Dose: 1 puff Aspirin (Ecotrin) 81 mg PO DAILY [facility] Last Admin: 10/18/17 11:00 Dose: 81 mg Bacitracin (Bacitracin) 1 ea TOP DAILY [facility] Last Admin: 10/18/17 10:31 Dose: 1 ea Ciprofloxacin (Cipro) 500 mg PO Q12H [facility] Last Admin: 10/18/17 21:39 Dose: 500 mg Clonazepam (Klonopin) 0.5 mg PO HS [facility] Last Admin: 10/18/17 21:38 Dose: 0.5 mg Clopidogrel Bisulfate (Plavix) 75 mg PO DAILY [facility] Last Admin: 10/18/17 11:00 Dose: 75 mg Enalapril Maleate (Vasotec) 20 mg PO DAILY [facility] Last Admin: 10/18/17 11:00 Dose: 20 mg Famotidine (Pepcid) 20 mg PO BID [facility] Last Admin: 10/18/17 18:14 Dose: 20 mg Heparin Sodium (Porcine) (Heparin) 5,000 units SC Q8 [facility] Last Admin: 10/19/17 05:41 Dose: 5,000 units Xfifh-1-Vsvg Ethyl Esters (Lovaza) 1 gm PO DAILY [facility] Last Admin: 10/18/17 11:00 Dose: 1 gm Oxycodone/Acetaminophen (Percocet 5/325 Mg Tab) 1 tab PO Q4H PRN PRN Reason: Pain, severe (8-10) Stop: 10/20/17 14:55 Last Admin: 10/18/17 21:39 Dose: 1 tab - Labs Labs: 10/18/17 08:24 10/18/17 08:24 PT 13.0 SECONDS (9.7-12.2) H 10/13/17 07:55 INR 1.2 10/13/17 07:55 APTT 35 SECONDS (21-34) H 10/13/17 07:55 - Constitutional Appears: Non-toxic, No Acute Distress - Head Exam Head Exam: ATRAUMATIC - Eye Exam Eye Exam: EOMI. absent: Scleral icterus - ENT Exam ENT Exam: Mucous Membranes Moist - Respiratory Exam Respiratory Exam: NORMAL BREATHING PATTERN. absent: Accessory Muscle Use, Respiratory Distress - Cardiovascular Exam Cardiovascular Exam: +S1, +S2. absent: Bradycardia, Tachycardia - GI/Abdominal Exam GI & Abdominal Exam: Soft. absent: Distended, Firm, Guarding, Rigid, Tenderness - Extremities Exam Additional comments: Palpable PT pulse palpable pulse at graft site - Neurological Exam Neurological Exam: Alert, Awake, Oriented x3 - Skin Skin Exam: Intact, Warm Assessment and Plan - Assessment and Plan (Free Text) Assessment: 82 y/o F POD#6 s/p Right popliteal to posterior tibial bypass w/ cryovein and intraoperative arteriogram Plan: - cont ASA and plavix - cont pain management - encourage OOB to chair/Amb/IS use - Aggressive Physical therapy w/ full weight bearing - pt cleared for discharge to rehab once placement arranged Pt discussed w/ Dr. Mohamud Paula PGY1
[2017-10-19] MEDS: Omega-3-Acid Ethyl Esters 1 GM Cap PO SCH (10:24)
[2017-10-19] MEDS: Bacitracin 500 Units/gm Oint Foilpak UD TOP SCH (10:25)
[2017-10-19 12:05] LABS: BASO # 0.1 K/uL (0.0-0.2); BASO % 0.7 % (0.0-2.0); EOS # 0.3 K/uL (0.0-0.7); EOS % 3.5 % (0.0-4.0); HEMOGLOBIN 11.5 g/dL (11.0-16.0); LYMPH # 1.2 K/uL (1.0-4.3); LYMPH % 14.7 % (20.0-40.0); MEAN CELL VOLUME 94.3 fL (81.0-99.0); MEAN CORPUSCULAR HEMOGLOBIN 31.8 pg (27.0-31.0); MEAN CORPUSCULAR HGB CONC 33.8 g/dL (33.0-37.0); MEAN PLATELET VOLUME 8.8 fL (7.2-11.7); MONO # 0.6 K/uL (0.0-0.8); MONO % 7.2 % (0.0-10.0); NEUT % 73.9 % (50.0-75.0); RBC 3.61 Mil/uL (3.80-5.20); RED CELL DISTRIBUTION WIDTH 14.6 % (11.5-14.5); WHITE BLOOD COUNT 8.1 K/uL (4.8-10.8)
[2017-10-19 12:10] LABS: ALB/GLOB RATIO 1.1 (1.0-2.1); ALBUMIN 3.2 g/dL (3.5-5.0); ALT/SGPT 20 U/L (9-52); AST/SGOT 30 U/L (14-36); BLOOD UREA NITROGEN 12 mg/dL (7-17); CALCIUM 8.6 mg/dl (8.6-10.4); GFR AFRICAN-AMERICAN > 60; GFR NON-AFRICAN AMERICAN > 60; MAGNESIUM 1.9 mg/dL (1.6-2.3)
--- NOTE | 2017-10-19 14:09 | CP.PCM.PN ---
Subjective - Date & Time of Evaluation Date of Evaluation: 10/19/17 Time of Evaluation: 14:05 - Subjective Subjective: Podiatry Progress Note for Dr. Macias 82 year old female seen at bedside accompanied by her son for gangenous right hallux and 2nd digit. Patient is S/P fem-pop bypass POD #5. Patient's son reports of no acute overnight events. Patient is AAOx3 and is in NAD. She currently denies any n/v/f/c/sob/cp. Patient states she is to be discharged today to [facility]. Objective - Vital Signs/Intake and Output Vital Signs (last 24 hours): Temp Pulse Resp BP Pulse Ox 98.3 F 72 20 124/65 100 10/19/17 07:20 10/19/17 07:20 10/19/17 07:20 10/19/17 10:25 10/19/17 07:20 - Medications Medications: Current Medications Albuterol (Ventolin Hfa 90 Mcg/Actuation (8 G)) 2 puff IH RBID [facility] Last Admin: 10/19/17 07:24 Dose: 1 puff Aspirin (Ecotrin) 81 mg PO DAILY [facility] Last Admin: 10/19/17 10:25 Dose: 81 mg Bacitracin (Bacitracin) 1 ea TOP DAILY [facility] Last Admin: 10/19/17 10:25 Dose: 1 ea Ciprofloxacin (Cipro) 500 mg PO Q12H [facility] Last Admin: 10/19/17 10:24 Dose: 500 mg Clonazepam (Klonopin) 0.5 mg PO HS [facility] Last Admin: 10/18/17 21:38 Dose: 0.5 mg Clopidogrel Bisulfate (Plavix) 75 mg PO DAILY [facility] Last Admin: 10/19/17 10:25 Dose: 75 mg Enalapril Maleate (Vasotec) 20 mg PO DAILY [facility] Last Admin: 10/19/17 10:25 Dose: 20 mg Famotidine (Pepcid) 20 mg PO BID [facility] Last Admin: 10/19/17 10:24 Dose: 20 mg Zjkqt-0-Znrj Ethyl Esters (Lovaza) 1 gm PO DAILY [facility] Last Admin: 10/19/17 10:24 Dose: 1 gm Oxycodone/Acetaminophen (Percocet 5/325 Mg Tab) 1 tab PO Q4H PRN PRN Reason: Pain, severe (8-10) Stop: 10/20/17 14:55 Last Admin: 10/18/17 21:39 Dose: 1 tab - Labs Labs: 10/19/17 11:39 10/19/17 11:39 PT 13.0 SECONDS (9.7-12.2) H 10/13/17 07:55 INR 1.2 10/13/17 07:55 APTT 35 SECONDS (21-34) H 10/13/17 07:55 - Constitutional Appears: Well, Non-toxic, No Acute Distress - Extremities Exam Additional comments: Right lower extremity focused. Dressing is clean, dry, and intact. Vasc: DP and PT pulses are palpable 1/4, Temperature runs warm to warm proximal to distal. localized edema noted to the 1st and 2nd digit, Cap refill time to remaining digits: < 3 sec, unappreciable to distal vivian of hallux and 2nd digit due to ischemic necrosis, however refill time is prompt with accompanying callor to the healthy skin margins proximal to areas of necrosis. Margins of ischemic changes marked with skin marker to asses demarcation and potential regressions. Derm: Resolved superficial ulceration, with atrophic ischemic dusky skin noted to noted to the aspect of right hallux distal for interphalangeal joint and aspect of 2nd digit distal to proximal interphalangeal joint. Dry necrosis noted to distal aspects of digit 1 and 2. No noted open wound base with no necrosis noted. No evidence of deep tissue injury or pre-ulcerative pressure ulcerations to heels bilaterally heel fatpad intact and skin supply. Ortho: Mild pain with palpation to 1st and 2nd digit to the right. Mild tenderness to palpation along heels bilaterally, no evidence of deep tissue injury or pre-ulcerative pressure ulcerations. Neuro: gross and protective sensation diminished - Neurological Exam Neurological Exam: Alert, Awake, Oriented x3 - Psychiatric Exam Psychiatric exam: Normal Affect, Normal Mood Assessment and Plan - Assessment and Plan (Free Text) Assessment: 82 y/o female with right hallux and 2nd digit dry gangrene, secondary to PVD Plan: Patient examined and evaluated Discussed plan in detail with attending Dr. Macias Labs and vitals reviewed- afebrile, WBC 8.1 Dressed with betadine and DSD, daily dressing changes Discussed with patient and family member, who was present, increasing indication for digital amputation as area of necrosis is now demarcating. Pt understand potential need. Discussed with pt as she continues through rehabilitation, potential amputations can be performed on an outpatient basis, to allow area of necrosis to fully demarcate. Pt is agreeable to this course of action. Continue multipodus boots at all time/ offload heels while in bed. Podiatry will continue to follow patient while in house Patient to follow up with Dr. Macias next week as an outpatient
--- NOTE | 2017-10-19 14:28 | CP.PCM.DIS ---
<Nancy Davalos - Last Filed: 10/19/17 14:16> Provider - Provider Date of Admission: 10/06/17 17:15 Attending physician: Shirin Lake MD Consults: Dr. Gilberto Mallory Time Spent in preparation of Discharge (in minutes): 35 Hospital Course - Lab Results Lab Results: Micro Results 10/15/17 19:00 Naris MRSA Culture (Admit) - Final MRSA NOT DETECTED 10/14/17 00:24 Nose MRSA Culture (Admit) - Final MRSA NOT DETECTED 10/06/17 20:52 Foot - Right Gram Stain - Final 10/06/17 20:52 Foot - Right Wound Culture - Final Pseudomonas Aeruginosa Most Recent Lab Values WBC 8.1 K/uL (4.8-10.8) 10/19/17 11:39 RBC 3.61 Mil/uL (3.80-5.20) L 10/19/17 11:39 Hgb 11.5 g/dL (11.0-16.0) 10/19/17 11:39 Hct 34.1 % (34.0-47.0) 10/19/17 11:39 MCV 94.3 fL (81.0-99.0) 10/19/17 11:39 MCH 31.8 pg (27.0-31.0) H 10/19/17 11:39 MCHC 33.8 g/dL (33.0-37.0) 10/19/17 11:39 RDW 14.6 % (11.5-14.5) H 10/19/17 11:39 Plt Count 275 K/uL (130-400) 10/19/17 11:39 MPV 8.8 fL (7.2-11.7) 10/19/17 11:39 Neut % (Auto) 73.9 % (50.0-75.0) 10/19/17 11:39 Lymph % (Auto) 14.7 % (20.0-40.0) L 10/19/17 11:39 Slope % (Auto) 7.2 % (0.0-10.0) 10/19/17 11:39 Eos % (Auto) 3.5 % (0.0-4.0) 10/19/17 11:39 Baso % (Auto) 0.7 % (0.0-2.0) 10/19/17 11:39 Neut # (Auto) 6.0 K/uL (1.8-7.0) 10/19/17 11:39 Lymph # (Auto) 1.2 K/uL (1.0-4.3) 10/19/17 11:39 Slope # (Auto) 0.6 K/uL (0.0-0.8) 10/19/17 11:39 Eos # (Auto) 0.3 K/uL (0.0-0.7) 10/19/17 11:39 Baso # (Auto) 0.1 K/uL (0.0-0.2) 10/19/17 11:39 Neutrophils % (Manual) 84 % (50-75) H 10/14/17 06:24 Band Neutrophils % 1 % (0-2) 10/14/17 06:24 Lymphocytes % (Manual) 8 % (20-40) L 10/14/17 06:24 Monocytes % (Manual) 6 % (0-10) 10/14/17 06:24 Eosinophils % (Manual) 1 % (0-4) 10/14/17 06:24 Platelet Estimate Normal (NORMAL) 10/14/17 06:24 Large Platelets Present 10/14/17 06:24 PT 13.0 SECONDS (9.7-12.2) H 10/13/17 07:55 INR 1.2 10/13/17 07:55 APTT 35 SECONDS (21-34) H 10/13/17 07:55 Sodium 135 mmol/L (132-148) 10/19/17 11:39 Potassium 3.6 mmol/L (3.6-5.2) 10/19/17 11:39 Chloride 99 mmol/L (98-107) 10/19/17 11:39 Carbon Dioxide 28 mmol/L (22-30) 10/19/17 11:39 Anion Gap 11 (10-20) 10/19/17 11:39 BUN 12 mg/dL (7-17) 10/19/17 11:39 Creatinine 0.5 mg/dL (0.7-1.2) L 10/19/17 11:39 Est GFR ( Amer) > 60 10/19/17 11:39 Est GFR (Non-Af Amer) > 60 10/19/17 11:39 POC Glucose (mg/dL) 116 mg/dL (65-110) H 10/15/17 16:44 Random Glucose 135 mg/dL (65-105) H 10/19/17 11:39 Calcium 8.6 mg/dl (8.6-10.4) 10/19/17 11:39 Phosphorus 3.3 mg/dL (2.5-4.5) 10/19/17 11:39 Magnesium 1.9 mg/dL (1.6-2.3) 10/19/17 11:39 Total Bilirubin 0.4 mg/dL (0.2-1.3) 10/19/17 11:39 AST 30 U/L (14-36) 10/19/17 11:39 ALT 20 U/L (9-52) 10/19/17 11:39 Alkaline Phosphatase 69 U/L (38-126) 10/19/17 11:39 Total Protein 6.1 g/dL (6.3-8.3) L 10/19/17 11:39 Albumin 3.2 g/dL (3.5-5.0) L 10/19/17 11:39 Globulin 2.9 gm/dL (2.2-3.9) 10/19/17 11:39 Albumin/Globulin Ratio 1.1 (1.0-2.1) 10/19/17 11:39 Blood Type O POSITIVE 10/13/17 07:55 Antibody Screen Negative 10/13/17 07:55 - Hospital Course Hospital Course: Upon admission: This is an 82 year old female with PMHx PVD, HTN, arthritis, Raynoud's phenomenon who presents complaining of right leg pain. Patient sent by her assistant reading teacher Dr. Tye Kasper for evaluation of right first and second toe infection and right popliteal occlusion. Patient states that the leg pain has been ongoing for one week. Pain is described as severe, non radiating. It is worsened with walking and relieved with rest. Patient received antibiotics from her assistant reading teacher and has been taking it for about 4 days. Hospital Course: Patient was admitted with sever PVD and foot wound. Home aspirin and plavix were continued. Vascular surgery consulted (Dr. Mallory) and podiatry consulted (Dr. Macias). Wound cultures ordered by podiatry grew pseudomonas so patietn was started on Cipro 400 mg IV Q12H (10/09). CTA with femoral runoff showed Right Popliteal artery occlusion and Mild stenosis of right proximal and distal SFA. Per Dr. Mallory, patient was unable to have balloon angioplasty so popliteal-posterior tibial bypass done 10/13/17. Stress test was done preop and found to be negative. Echo showed EF 55-60%, hypertensive heart disease, and diastolic dysfunction. Upon discharge: Patint stable for discharge to [facility] per vascular surgery and podiatry, however patient will need to follow up with podiatry for amputation of toes since area of necrosis did not reconstitute following bypass. Please note that this is a summary of events. For more details, please see complete medical record. Discharge Exam - Head Exam Head Exam: NORMAL INSPECTION - Eye Exam Eye Exam: EOMI, Normal appearance, PERRL - ENT Exam ENT Exam: Mucous Membranes Moist - Respiratory Exam Respiratory Exam: Clear to PA & Lateral, NORMAL BREATHING PATTERN, UNREMARKABLE - Cardiovascular Exam Cardiovascular Exam: REGULAR RHYTHM, +S1, +S2 - GI/Abdominal Exam GI & Abdominal Exam: Normal Bowel Sounds, Unremarkable - Extremities Exam Additional comments: Right leg and foot bandaged, c/d/i - Neurological Exam Neurological exam: Alert, Oriented x3 - Psychiatric Exam Psychiatric exam: Normal Affect, Normal Mood - Skin Skin Exam: Dry, Normal Color, Warm Discharge Plan - Discharge Medications Prescriptions: Ciprofloxacin [Cipro] 500 mg PO Q12H #14 tab oxyCODONE/Acetaminophen [Percocet 5/325 mg Tab] 1 tab PO Q4H PRN #7 tab PRN Reason: Pain, Severe (8-10) - Follow Up Plan Condition: FAIR Disposition: REHAB FACILITY/REHAB UNIT Instructions: Heart Healthy Diet, Peripheral Vascular (Arterial) Disease (DC), Oxycodone and Acetaminophen, Wound Infection, Ciprofloxacin and Fluocinolone Additional Instructions: Please f/u with the [facility] clinic, Dr. Macias, and Dr. Mallory. Referrals: [facility] at [facility] [Outside] Filippo Macias DPM [Staff Provider] - Erasmo Mallory Jr., MD [Staff Provider] - <Reji Barrow - Last Filed: 10/19/17 15:25> Provider - Provider Date of Admission: 10/06/17 17:15 Attending physician: Shirin Lake MD Hospital Course - Lab Results Lab Results: Micro Results 10/15/17 19:00 Naris MRSA Culture (Admit) - Final MRSA NOT DETECTED 10/14/17 00:24 Nose MRSA Culture (Admit) - Final MRSA NOT DETECTED 10/06/17 20:52 Foot - Right Gram Stain - Final 10/06/17 20:52 Foot - Right Wound Culture - Final Pseudomonas Aeruginosa Most Recent Lab Values WBC 8.1 K/uL (4.8-10.8) 10/19/17 11:39 RBC 3.61 Mil/uL (3.80-5.20) L 10/19/17 11:39 Hgb 11.5 g/dL (11.0-16.0) 10/19/17 11:39 Hct 34.1 % (34.0-47.0) 10/19/17 11:39 MCV 94.3 fL (81.0-99.0) 10/19/17 11:39 MCH 31.8 pg (27.0-31.0) H 10/19/17 11:39 MCHC 33.8 g/dL (33.0-37.0) 10/19/17 11:39 RDW 14.6 % (11.5-14.5) H 10/19/17 11:39 Plt Count 275 K/uL (130-400) 10/19/17 11:39 MPV 8.8 fL (7.2-11.7) 10/19/17 11:39 Neut % (Auto) 73.9 % (50.0-75.0) 10/19/17 11:39 Lymph % (Auto) 14.7 % (20.0-40.0) L 10/19/17 11:39 Slope % (Auto) 7.2 % (0.0-10.0) 10/19/17 11:39 Eos % (Auto) 3.5 % (0.0-4.0) 10/19/17 11:39 Baso % (Auto) 0.7 % (0.0-2.0) 10/19/17 11:39 Neut # (Auto) 6.0 K/uL (1.8-7.0) 10/19/17 11:39 Lymph # (Auto) 1.2 K/uL (1.0-4.3) 10/19/17 11:39 Slope # (Auto) 0.6 K/uL (0.0-0.8) 10/19/17 11:39 Eos # (Auto) 0.3 K/uL (0.0-0.7) 10/19/17 11:39 Baso # (Auto) 0.1 K/uL (0.0-0.2) 10/19/17 11:39 Neutrophils % (Manual) 84 % (50-75) H 10/14/17 06:24 Band Neutrophils % 1 % (0-2) 10/14/17 06:24 Lymphocytes % (Manual) 8 % (20-40) L 10/14/17 06:24 Monocytes % (Manual) 6 % (0-10) 10/14/17 06:24 Eosinophils % (Manual) 1 % (0-4) 10/14/17 06:24 Platelet Estimate Normal (NORMAL) 10/14/17 06:24 Large Platelets Present 10/14/17 06:24 PT 13.0 SECONDS (9.7-12.2) H 10/13/17 07:55 INR 1.2 10/13/17 07:55 APTT 35 SECONDS (21-34) H 10/13/17 07:55 Sodium 135 mmol/L (132-148) 10/19/17 11:39 Potassium 3.6 mmol/L (3.6-5.2) 10/19/17 11:39 Chloride 99 mmol/L (98-107) 10/19/17 11:39 Carbon Dioxide 28 mmol/L (22-30) 10/19/17 11:39 Anion Gap 11 (10-20) 10/19/17 11:39 BUN 12 mg/dL (7-17) 10/19/17 11:39 Creatinine 0.5 mg/dL (0.7-1.2) L 10/19/17 11:39 Est GFR ( Amer) > 60 10/19/17 11:39 Est GFR (Non-Af Amer) > 60 10/19/17 11:39 POC Glucose (mg/dL) 116 mg/dL (65-110) H 10/15/17 16:44 Random Glucose 135 mg/dL (65-105) H 10/19/17 11:39 Calcium 8.6 mg/dl (8.6-10.4) 10/19/17 11:39 Phosphorus 3.3 mg/dL (2.5-4.5) 10/19/17 11:39 Magnesium 1.9 mg/dL (1.6-2.3) 10/19/17 11:39 Total Bilirubin 0.4 mg/dL (0.2-1.3) 10/19/17 11:39 AST 30 U/L (14-36) 10/19/17 11:39 ALT 20 U/L (9-52) 10/19/17 11:39 Alkaline Phosphatase 69 U/L (38-126) 10/19/17 11:39 Total Protein 6.1 g/dL (6.3-8.3) L 10/19/17 11:39 Albumin 3.2 g/dL (3.5-5.0) L 10/19/17 11:39 Globulin 2.9 gm/dL (2.2-3.9) 10/19/17 11:39 Albumin/Globulin Ratio 1.1 (1.0-2.1) 10/19/17 11:39 Blood Type O POSITIVE 10/13/17 07:55 Antibody Screen Negative 10/13/17 07:55 Attending/Attestation - Attestation I have personally seen and examined this patient.: Yes I have fully participated in the care of the patient.: Yes I have reviewed all pertinent clinical information, including history, physical exam and plan: Yes Notes (Text): 10/19/17 15:25 Medical attending: Patient was seen and examined by me, I saw the patient together with the medical asst and agree with the above note by the resident. Today I saw the patient walking with a rolling walker with her family member present as well. She was not in any acute distress she was ambulating very slowly with the rolling walker with physical therapy. As documented above the patient has just recently underwent a femoral-popliteal bypass however unfortunately doesn't look like they could avoid getting the amputation of the tips of great toe and second toe. Podiatry is waiting until later on considering this amputation Today work to try discharge to subacute rehabilitation. The family is aware of this Thank you very much, Reji Barrow
[2017-10-19] MEDS: Oxycodone/Acetaminophen 5/325 mg Tab PO PRN (14:56)
[2017-10-19 16:27] VITALS: BP 123/80; PULSE 85; TEMP 98.1; O2SAT 95
== END 2017-10-19 16:30 | DRG 253 ==
LOC: C.ER 13:15 → C.9E 17:15 → C.3T 17:31 → C.9I 10-13 23:02 → C.5S 10-15 14:40
PROVIDERS: ADMIT Hospitalist; ATTEND Internal Medicine
PROC: B40D1ZZ Plain Radiography of Aorta and Bilateral Lower Extremity Arteries using Low Osmolar Contrast (ICD-10-PCS; 2017-10-08)
PROC: 041 Lower Arteries, Bypass (ICD-10-PCS; principal; 2017-10-13 11:30)
PROC: 02HV33Z Insertion of Infusion Device into Superior Vena Cava, Percutaneous Approach (ICD-10-PCS; 2017-10-14)
DX: I99.8 Other disorder of circulatory system (principal); I77.2 Rupture of artery; I73.9 Peripheral vascular disease, unspecified; I11.9 Hypertensive heart disease without heart failure; I77.1 Stricture of artery; E78.5 Hyperlipidemia, unspecified; H26.9 Unspecified cataract; D72.829 Elevated white blood cell count, unspecified; J44.9 Chronic obstructive pulmonary disease, unspecified; Z86.73 Personal history of transient ischemic attack (TIA), and cerebral infarction without residual deficits; I25.10 Atherosclerotic heart disease of native coronary artery without angina pectoris

== ENCOUNTER 2017-11-02 10:10 | Day surgery (SDC) | payer MEDICARE, OTHER ==
[2017-11-02 11:29] VITALS: RESP 16
[2017-11-02] MEDS ORDERED: Lidocaine 1% Inj (20ml) ONE (12:12)
[2017-11-02] MEDS ORDERED: Bupivacaine HCl 0.5% PF (10 ml) Inj ONE (12:12)
[2017-11-02] MEDS ORDERED: ceFAZolin IV 2 gm in Dextrose 0 GM/0 ML BAG IVPB ONE (12:12)
[2017-11-02] MEDS ORDERED: Midazolam 2 MG/2 ML VIAL ONE (12:37)
[2017-11-02] MEDS: ceFAZolin IV 1 gm in Dextrose 1 GM/50 ML BAG IVPB ONE ×2 (12:45→13:12)
[2017-11-02] MEDS ORDERED: Oxycodone/Acetaminophen 5/325 mg Tab PO PRN ×2 (13:54)
--- NOTE | 2017-11-02 14:00 | PCM.SURG1 ---
Surgeon's Initial Post Op Note - Surgeon's Notes Surgeon: Dr. Filippo Macias DPM [employer] Manager: Dr. Manohar Moody DPM PGY-1 Type of Anesthesia: IV Sedation, Local Anesthesia Administered By: Dr. Marjorie BALDWIN Pre-Operative Diagnosis: Gangrene of the 1st and 2nd digit of the right foot Operative Findings: See dictation. M: 3-0 vicryl, 4-0 vicryl, 4-0 prolene. I: 20 cc of 1:1 1% lidocaine plain : 0.5% marcain plain - pre-op Post-Operative Diagnosis: Same Operation Performed: Right foot partial 1st and 2nd digit amputation Specimen/Specimens Removed: Gangrene portion of the 1st and 2nd digit. Proximal margin: head of the proximal phalanx of the 1st and 2nd digit Estimated Blood Loss: EBL {In ML}: 5 Blood Products Given: N/A Drains Used: No Drains Post-Op Condition: Good Date of Surgery/Procedure: 11/02/17 Time of Surgery/Procedure: 14:00
[2017-11-02 15:01] VITALS: TEMP 97.5
[2017-11-02 16:20] VITALS: O2SAT 95
[2017-11-02 17:05] VITALS: BP 132/56; PULSE 80
--- NOTE | 2017-11-03 09:27 | RAD ---
PROCEDURE: Right Foot Radiographs. HISTORY: s/p right foot surgery COMPARISON: 06/05/2018 FINDINGS: BONES: Interval amputation 1st and 2nd digit - proximal phalangeal mid shaft levels . There is less valgus orientation of the 3rd and 4th digits compared the prior study .. No periosteal reaction or subcutaneous emphysema noted. Inferior posterior calcaneal spurring as before. Sesamoid hallux arthrosis. First metatarsal-phalangeal joint arthrosis. Accessory ossifications centers border the cuboid bone Sign Generalized osteopenia JOINTS: As above SOFT TISSUES: Diffuse soft tissue swelling of tissue postsurgical changes. Bandaging apparent OTHER FINDINGS: None. IMPRESSION: Interval surgical changes. No periosteal reaction to suggest osteomyelitis. No gas-forming cellulitis appreciated. Arthrosis.
--- NOTE | 2017-11-03 09:37 | OP ---
PROCEDURE DATE: 11/02/2017. PREOPERATIVE DIAGNOSIS: Right foot first and second digit gangrene. POSTOPERATIVE DIAGNOSIS: Right foot first and second digit gangrene. NAME OF THE PROCEDURE: Right foot partial first and second digit amputation. SURGEON: Filippo Macias DPM. PEER EDUCATOR: Manohar Moody DPM, PGY1. ANESTHESIOLOGIST: Dr. Amador. ANESTHESIA: IV sedation with local. INDICATION: The patient is an 82-year-old female with the above diagnosis. The patient has exhausted all conservative treatment at this time and now requests surgical intervention. The patient and the family was explained the possible risk of further gangrenous changes as well as infection of the surgical site even after performing the above procedure. The patient and the family signed the consent after careful explantation of the risks, benefits, complications and alternatives for the surgical procedure. No guarantees were given nor implied. NPO status was confirmed prior to taking the patient to the OR. PREPARATION: The patient was brought into the operating room and placed on an operating room table in a supine position. A time-out was performed for identification of the correct patient and the procedure. The patient received a total of 20 mL of 1:1 mixture of 1% lidocaine plain and 0.5% Marcaine plain in a local Russell block and V-block fashion to the right forefoot. Once anesthesia was achieved, the right foot was then prepped and draped in a normal sterile manner and procedure begin. No tourniquet was used during this procedure. PROCEDURE: The attention was then directed to the patient's right first and second digits, where gangrenous changes were noted to be obvious, two separate incisions were planned using a marking pen. Fish mouth type incision was planned on the medial aspect of the hallux, distal to the MTPJ and circumferentially around the gangrenous changes. A racket type incision was planned on the second digit, which extended from the level of PIPJ and circumferentially around the gangrenous changes. Each digital procedure were performed separately. Using the #15 blade, a linear incision was made down to the level of bone on the planned incision site on the hallux. Next, a towel clamp was used to stabilize the distal hallux and was disarticulated at the level of PIPJ. At this time, utilizing the sagittal saw, the head of the proximal phalanx was dissected for clear margin. All the devitalized soft tissue and the tendon was debrided from the surgical site and was passed off the operative field for pathology. At this time using a 3-0 and 4-0 Vicryl subcutaneous tissue was reapproximated. Attention was now driven towards the second digit, where an incision was made on the planned site using #15 blade. A towel clamp was used to grasp the distal portion of the second digit and was disarticulated at the level of PIPJ. At this time utilizing the sagittal saw, the head of the proximal phalanx was resected for clear margins. All the devitalized soft tissue and tendon was debrided from the surgical site and was passed off the operative field for pathology. Next, a 3-0 Prolene was used to reapproximate skin with simple suture technique at both the surgical sites. The surgical sites were then dressed with Xeroform, 4 x 4 gauze, and light Dulce. POSTOPERATIVE CONDITION: The patient tolerated the anesthesia and procedure well and was escorted to the recovery room with vital signs stable and neurovascular status intact to the right foot. All the postoperative instructions were provided to the patient and the family prior to taking the patient to the surgery. The patient will follow up with Dr. Macias during office hours for further care. Manohar Moody DPM Filippo Macias DPM
== END 2017-11-02 16:00 | disposition home or self-care (01) ==
LOC: C.SDS 10:10
PROVIDERS: ATTEND Student in an Organized Health Care Education/Training Program
DX: I96 Gangrene, not elsewhere classified (principal)
CPT/HCPCS: 28124; 28825; 73620; 87070; 88305; J0690; J2250; J3010

== ENCOUNTER 2017-12-21 09:03 | Inpatient (IN) | payer MEDICARE, OTHER ==
[2017-12-21 09:03] VITALS: BMI 28.3
[2017-12-21] MEDS ORDERED: Oxycodone/Acetaminophen 5/325 mg Tab PO STA (10:27)
[2017-12-21] MEDS ORDERED: Oxycodone/Acetaminophen 5/325 mg Tab ONE (10:45)
[2017-12-21 10:50] LABS: BASO % 0.4 % (0.0-2.0); EOS # 0.2 K/uL (0.0-0.7); EOS % 1.6 % (0.0-4.0); HEMOGLOBIN 9.7 g/dL (11.0-16.0); LYMPH # 1.6 K/uL (1.0-4.3); LYMPH % 16.3 % (20.0-40.0); MEAN CORPUSCULAR HEMOGLOBIN 31.6 pg (27.0-31.0); MEAN CORPUSCULAR HGB CONC 33.6 g/dL (33.0-37.0); MEAN PLATELET VOLUME 8.9 fL (7.2-11.7); MONO # 0.9 K/uL (0.0-0.8); MONO % 8.7 % (0.0-10.0); NEUT # 7.2 K/uL (1.8-7.0); RBC 3.07 Mil/uL (3.80-5.20); WHITE BLOOD COUNT 9.9 K/uL (4.8-10.8)
[2017-12-21 10:55] LABS: ALB/GLOB RATIO 1.1 (1.0-2.1); ALBUMIN 3.3 g/dL (3.5-5.0); ALT/SGPT 9 U/L (9-52); AST/SGOT 41 U/L (14-36); BLOOD UREA NITROGEN 18 mg/dL (7-17); CALCIUM 8.3 mg/dl (8.6-10.4); GFR AFRICAN-AMERICAN > 60; GFR NON-AFRICAN AMERICAN > 60
--- NOTE | 2017-12-21 11:04 | C.PDOC ---
History Of Present Illness 82 y/o female presents to ED s/p right lower leg bypass surgery brought to ED by son with c/o right lower leg burning sensation and pain with associated coldness to leg and non healing wound. Patient denies numbness, fever, chills, nausea, vomiting or any other complaints at this time. 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), Fractures, Gall Bladder Disease, HTN, Osteoporosis, Peripheral Edema, TIA Surgical History: Cholecystectomy, Endoscopy - [facility] Procedures BYPASS R POPL ART TO POPLIT ART, PERC ENDO APPROACH (10/06/17) INSERTION OF INFUSION DEV INTO SUP VENA CAVA, PERC APPROACH (10/06/17) PLAIN RADIOGRAPHY OF AORTA, BI LE ART USING L OSM CONTRAST (10/06/17) Family History: States: No Known Family Hx - Social History Hx Alcohol Use: No Hx Substance Use: No - Immunization History Hx Tetanus Toxoid Vaccination: No Hx Influenza Vaccination: No Hx Pneumococcal Vaccination: No Review Of Systems Constitutional: Negative for: Fever Cardiovascular: Negative for: Chest Pain Respiratory: Negative for: Shortness of Breath Musculoskeletal: Positive for: Leg Pain Skin: Negative for: Rash Neurological: Negative for: Weakness, Numbness Physical Exam - Physical Exam Appears: Non-toxic, No Acute Distress Skin: Warm, Dry, No Rash Head: Atraumatic, Normacephalic Oral Mucosa: Moist Neck: Normal ROM, Supple Cardiovascular: Rhythm Regular Respiratory: Normal Breath Sounds, No Rales, No Rhonchi, No Wheezing Gastrointestinal/Abdominal: Soft, No Tenderness, No Guarding, No Rebound Extremity: Pedal Edema (right pitting), Capillary Refill (<2 seconds), No Deformity, Other (Right thigh tiangular scab with surrounding erythema. Medial calf [id number] long open wound w/withish base. Cool to touch ) Pulses: Left Dorsalis Pedis: Normal, Right Dorsalis Pedis: Absent (No palpable pulse) Neurological/Psych: Oriented x3, Normal Motor, Normal Sensation ED Course And Treatment - Laboratory Results Result Diagrams: 12/22/17 08:02 12/22/17 08:02 O2 Sat by Pulse Oximetry: 100 (RA) Pulse Ox Interpretation: Normal Medical Decision Making Medical Decision Making: Plan: Blood culture, Arterial duplex lower ext. ordered. Ibuprofen and Percocet administered. Progress: @110: machine packaging technician notified me bypass occluded, DR. Mallory was paged [phone] Mallory; will admit to medicine, discussed with Dr Lake, admit to her service. Disposition Discussed With .: Shirin Lake Doctor Will See Patient In The: Hospital - Disposition Disposition: HOSPITALIZED Disposition Time: 13:35 Condition: FAIR - Clinical Impression Clinical Impression: Arterial occlusion, lower extremity - PA / MEMBER OF THE LEGISLATIVE COUNCIL / Resident Statement MD/DO has reviewed & agrees with the documentation as recorded. - Scribe Statement The provider has reviewed the documentation as recorded by the Scribe Phuong Schuster All medical record entries made by the Sarah were at my direction and personally dictated by me. I have reviewed the chart and agree that the record accurately reflects my personal performance of the history, physical exam, medical decision making, and the department course for this patient. I have also personally directed, reviewed, and agree with the discharge instructions and disposition.
--- NOTE | 2017-12-21 13:22 | VASCLAB ---
PROCEDURE: HISTORY: right leg, eval for arterial flow COMPARISON: None available. TECHNIQUE: Grayscale and duplex Doppler evaluation of the right common femoral, femoral, profunda femoral, popliteal, posterior tibial, anterior tibial and dorsalis pedis arteries was performed. Report prepared by Suleiman Rice, BS, RVT FINDINGS: RIGHT LOWER EXTREMITY: * Common Femoral Artery: Peak Systolic Velocity - 118: Doppler Waveform: Biphasic: Plaque description - * Profunda Femoral Artery: Peak Systolic Velocity - 127: Doppler Waveform: Triphasic.: Plaque description - * Femoral Artery o Proximal Segment: Peak Systolic Velocity - 177: Doppler Waveform: Biphasic: Plaque description - o Middle Segment: Peak Systolic Velocity - 69: Doppler Waveform: Biphasic: Plaque description - o Distal Segment: Peak Systolic Velocity - : Doppler Waveform: : Plaque description - * Popliteal Artery o Proximal Segment: Peak Systolic Velocity - : Doppler Waveform: : Plaque description - o Middle Segment: Peak Systolic Velocity - : Doppler Waveform: : Plaque description - o Distal Segment: Peak Systolic Velocity - : Doppler Waveform: : Plaque description - * Posterior Tibial Artery: Peak Systolic Velocity - : Doppler Waveform: : Plaque description - * Anterior Tibial Artery: Peak Systolic Velocity - 0: Doppler Waveform: Absent: Plaque description - * Dorsalis Pedis Artery: Peak Systolic Velocity - 0: Doppler Waveform: Absent: Plaque description - OTHER FINDINGS: DARRIN Quevedo notified about the findings. IMPRESSION: RIGHT: Occluded right mid superficial femoral to posterior tibial artery bypass graft, anterior tibial and dorsalis pedis arteries. 30-49% stenosis of the right proximal superficial femoral artery.
--- NOTE | 2017-12-21 14:50 | CP.PCM.HP ---
History of Present Illness - History of Present Illness History of Present Illness: CC: Right leg pain HPI: Patient is a 82 year old female with PMHx PVD, HTN, arthritis, Raynoud's phenomenon, Osteoporosis, TIA(x3), peripheral edema, fractures (ribs and 4 compression cervical fractures) who was brought to the ED by her son with complaints of right lower leg pain, burning sensation and coldness, which started 3-4 days ago. 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 Patient was seen for regular post-op care approximately [address] Mallory with Unremarkable results. Patient presents with 9/10 leg pain today. Patient denies fever, chills, nausea, vomiting, numbness. As per son, who is patient's deputy sheriff, patient has been compliant with all of her medications. PMD: Dr. Vizcaino Vascular surgeon: Dr. Mallory Java Developer With Security Clearance: Dr. Kasper PMHx: PVD, HTN, arthritis, Raynoud's phenomenon, Osteoporosis, TIA(x3), peripheral edema, fractures (ribs and 4 compression cervical fractures) PSHx: On 04/21/17, arthrectomy of left popliteal artery with balloon angioplasty. On 05/27/17, had arthrectomy of right distal SFA/proximal popliteal artery and angioplasty of distal peroneal artery. Tubal ligation, cholecystectomy, Soft tissue mass excision from back, cataract surgery FHx: Unknown Medications: Ventolin BID, ASA 81, Plavix 75, Enalapril 20 mg PO daily, Lovaza 2 tabs daily, Lyrica 75mg PO BID Allergies: NKDA Social: Retired lens grinder and polisher at [employer], lives with son. Denies current or former use of tobacco, ETOH and illicit drug use Present on Admission - Present on Admission Any Indicators Present on Admission: No Review of Systems - Constitutional Constitutional: absent: Chills, Fever, Headache, Weakness - EENT Eyes: absent: Blurred Vision, Change in Vision Ears: absent: Dizziness - Cardiovascular Cardiovascular: absent: Chest Pain, Diaphoresis, Dyspnea, Leg Edema, Leg Ulcers , Palpitations, Pedal Edema - Respiratory Respiratory: absent: Cough, Dyspnea, Dyspnea on Exertion, Wheezing - Gastrointestinal Gastrointestinal: absent: Abdominal Pain, Diarrhea, Heartburn, Hematochezia, Nausea, Vomiting - Genitourinary Genitourinary: absent: Difficulty Urinating, Dysuria - Musculoskeletal Musculoskeletal: absent: Numbness Additional comments: Right leg pain and coldness - Neurological Neurological: absent: Disequilibrium, Dizziness, Headaches, Paresthesias, Radicular Pain, Weakness - Endocrine Endocrine: absent: Fatigue, Palpitations Past Patient History - Past Medical History & Family History Past Medical History?: Yes - Past Social History Smoking Status: Never Smoked - CARDIAC Hx Hypertension: Yes Hx Peripheral Edema: Yes - PULMONARY Hx Chronic Obstructive Pulmonary Disease (COPD): Yes (WORK RELATED ENVIRONMENT EXPOSURE) - NEUROLOGICAL Hx Transient Ischemic Attacks (TIA): Yes - HEENT Hx HEENT Problems: Yes Hx Cataracts: Yes (MARICARMEN.) - RENAL Hx Chronic Kidney Disease: No - ENDOCRINE/METABOLIC Hx Endocrine Disorders: No - HEMATOLOGICAL/ONCOLOGICAL Hx Blood Disorders: No - INTEGUMENTARY Hx Dermatological Problems: Yes (SURGICAL HARRY RIGHT LEG ) - MUSCULOSKELETAL/RHEUMATOLOGICAL Hx Arthritis: Yes Hx Fractures: Yes Hx Osteoporosis: Yes - GASTROINTESTINAL Hx Gall Bladder Disease: Yes - GENITOURINARY/GYNECOLOGICAL Hx Genitourinary Disorders: No - PSYCHIATRIC Hx Substance Use: No - SURGICAL HISTORY Hx Cholecystectomy: Yes - ANESTHESIA Hx Anesthesia: Yes Hx Anesthesia Reactions: No Hx Malignant Hyperthermia: No Meds Allergies/Adverse Reactions: Allergies Allergy/AdvReac Type Severity Reaction Status Date / Time No Known Allergies Allergy Verified 10/06/17 14:32 Physical Exam - Constitutional Appears: No Acute Distress - Head Exam Head Exam: ATRAUMATIC - Eye Exam Eye Exam: EOMI - ENT Exam ENT Exam: Mucous Membranes Moist - Respiratory Exam Respiratory Exam: Clear to Auscultation Bilateral, NORMAL BREATHING PATTERN. absent: Prolonged Expiratory Phase, Rhonchi, Wheezes, Respiratory Distress - Cardiovascular Exam Cardiovascular Exam: REGULAR RHYTHM, +S1, +S2. absent: Diastolic murmur, Systolic Murmur - GI/Abdominal Exam GI & Abdominal Exam: Normal Bowel Sounds, Soft. 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0 MCH 31.6 H MCHC 33.6 RDW 15.0 H Plt Count 223 MPV 8.9 Neut % (Auto) 73.0 Lymph % (Auto) 16.3 L [place] % (Auto) 8.7 Eos % (Auto) 1.6 Baso % (Auto) 0.4 Neut # (Auto) 7.2 H Lymph # (Auto) 1.6 [place] # (Auto) 0.9 H Eos # (Auto) 0.2 Baso # (Auto) 0.0 Sodium 141 Potassium 4.0 Chloride 104 Carbon Dioxide 23 Anion Gap 18 BUN 18 H Creatinine 0.4 L Est GFR ( Amer) > 60 Est GFR (Non-Af Amer) > 60 Random Glucose 108 H Calcium 8.3 L Total Bilirubin 0.4 AST 41 H D ALT 9 D Alkaline Phosphatase 63 Total Protein 6.3 Albumin 3.3 L Globulin 3.0 Albumin/Globulin Ratio 1.1 Assessment & Plan (1) Ischemia of right lower extremity Assessment and Plan: Consultations: V[facility], Dr. Mallory---> Help appreciated * Management as per recommendation * Anticipation for possible surgical intervention Risk Stratification for possible surgical intervention 1. Age 2. Hx of HTN- well-controlled with medication 3. Hx COPD: Well-controlle, no signs of acute exacerbation 4. Hx of TIA x3: Currently stable 5. Cardiac: Stress test was done preop and found to be negative. Echo showed EF 55-60%, hypertensive heart disease, and diastolic dysfunction (10/08/17) Patient is moderate to high risk and can undergo anticipated possible surgical intervention Diagnostic imaging: Arterial duplex right lower extremity (): Occuluded right mid superficial femoral to posterior tibial artery bypass graft, anterior tibial and dorsalis pedis arteries. 30-49% stenosis of the right proximal superficial femoral artery Mediations: * ASA 81mg PO daily * Plavix 75mg PO daily * Lyrica 75mg PO daily * Percocet 1 tab PO Q4H prn and 2 tab PO q4h prn (Pain control) Status: Acute (2) Hypertension Assessment and Plan: Controlled with medication Continue home medication: * Vasotec 20mg PO daily Status: Acute (3) Hypertriglyceridemia Assessment and Plan: Continue home medication: * Lovaza 1 tab po daily Status: Acute (4) Prophylactic measure Assessment and Plan: GI: Pepcid 20mg PO daily DVT: SCDs on left extremity. Heparin 5,000 units Q8H All plans and management discussed with Dr. Mahmood Status: Acute
--- NOTE | 2017-12-21 15:36 | CP.PCM.CON ---
History of Present Illness - History of Present Illness History of Present Illness: Vascular surgery consult for Dr. Mallory Consulted for arterial ischemia of the right lower leg Patient is an 82F with PMH of severe arterial disease of the right lower extremity with multiple vascular interventions in the past who comes in for several days of worsening right lower leg pain and coldness. Patient states that she has had progressive difficulties walking for the past 4-5 days and pain in her calf and foot became unbearable and her foot became cold. Patient denies any fever or chills, chest pain, or SOB. PMH: HLD, HTN, PAD, COPD PSH: right lower extremity bypass graft ALL: NKDA Review of Systems - Review of Systems All systems: reviewed and no additional remarkable complaints except Past Patient History - Past Medical History & Family History Past Medical History?: Yes - Past Social History Smoking Status: Never Smoked - CARDIAC Hx Hypertension: Yes Hx Peripheral Edema: Yes - PULMONARY Hx Chronic Obstructive Pulmonary Disease (COPD): Yes (WORK RELATED ENVIRONMENT EXPOSURE) - NEUROLOGICAL Hx Transient Ischemic Attacks (TIA): Yes - HEENT Hx HEENT Problems: Yes Hx Cataracts: Yes (MARICARMEN.) - RENAL Hx Chronic Kidney Disease: No - ENDOCRINE/METABOLIC Hx Endocrine Disorders: No - HEMATOLOGICAL/ONCOLOGICAL Hx Blood Disorders: No - INTEGUMENTARY Hx Dermatological Problems: Yes (SURGICAL HARRY RIGHT LEG ) - MUSCULOSKELETAL/RHEUMATOLOGICAL Hx Arthritis: Yes Hx Fractures: Yes Hx Osteoporosis: Yes - GASTROINTESTINAL Hx Gall Bladder Disease: Yes - GENITOURINARY/GYNECOLOGICAL Hx Genitourinary Disorders: No - PSYCHIATRIC Hx Substance Use: No - SURGICAL HISTORY Hx Cholecystectomy: Yes - ANESTHESIA Hx Anesthesia: Yes Hx Anesthesia Reactions: No Hx Malignant Hyperthermia: No Meds Allergies/Adverse Reactions: Allergies Allergy/AdvReac Type Severity Reaction Status Date / Time No Known Allergies Allergy Verified 10/06/17 14:32 - Medications Medications: Current Medications Albuterol (Ventolin Hfa 90 Mcg/Actuation (8 G)) 2 puff IH BID [facility] Aspirin (Ecotrin) 81 mg PO DAILY [facility] Clopidogrel Bisulfate (Plavix) 75 mg PO DAILY [facility] Enalapril Maleate (Vasotec) 20 mg PO DAILY [facility] Multivitamins (Hexavitamin) 1 tab PO DAILY [facility] [id number] Ethyl Esters (Lovaza) 1 gm PO DAILY [facility] Pregabalin (Lyrica) 75 mg PO DAILY [facility] Physical Exam - Constitutional Appears: Well, Non-toxic, No Acute Distress - Head Exam Head Exam: ATRAUMATIC, NORMOCEPHALIC - Eye Exam Eye Exam: Normal appearance. absent: Conjunctival injection, Scleral icterus - ENT Exam ENT Exam: Mucous Membranes Moist, Normal Oropharynx - Respiratory Exam Respiratory Exam: NORMAL BREATHING PATTERN. absent: Accessory Muscle Use, Respiratory Distress - Cardiovascular Exam Cardiovascular Exam: RRR - GI/Abdominal Exam GI & Abdominal Exam: absent: Distended - Extremities Exam Extremities exam: Positive for: calf tenderness. Negative for: pedal edema, pedal pulses present Additional comments: right lower extremity cold to the touch, mottled skin, no palpable or dopplerable pedal pulses of the right foot, present to doppler on the left. Dopplerable right popliteal artery. no pain to passive motion - Neurological Exam Neurological exam: Alert, Oriented x3 - Psychiatric Exam Psychiatric exam: Anxious, Normal Affect - Skin Skin Exam: Dry, Intact, Normal Color, Warm Additional comments: except as noted above Results - Vital Signs Recent Vital Signs: Last Vital Signs Temp 97.4 F L 12/21/17 14:15 Pulse 72 12/21/17 14:15 Resp 20 12/21/17 14:15 BP 137/56 L 12/21/17 14:15 Pulse Ox 96 12/21/17 14:15 - Labs Result Diagrams: 12/21/17 10:35 12/21/17 10:35 Labs: Laboratory Results - last 24 hr 12/21/17 12/21/17 10:35 10:35 WBC 9.9 RBC 3.07 L Hgb 9.7 L Hct 28.9 L MCV 94.0 MCH 31.6 H MCHC 33.6 RDW 15.0 H Plt Count 223 MPV 8.9 Neut % (Auto) 73.0 Lymph % (Auto) 16.3 L [place] % (Auto) 8.7 Eos % (Auto) 1.6 Baso % (Auto) 0.4 Neut # (Auto) 7.2 H Lymph # (Auto) 1.6 [place] # (Auto) 0.9 H Eos # (Auto) 0.2 Baso # (Auto) 0.0 Sodium 141 Potassium 4.0 Chloride 104 Carbon Dioxide 23 Anion Gap 18 BUN 18 H Creatinine 0.4 L Est GFR ( Amer) > 60 Est GFR (Non-Af Amer) > 60 Random Glucose 108 H Calcium 8.3 L Total Bilirubin 0.4 AST 41 H D ALT 9 D Alkaline Phosphatase 63 Total Protein 6.3 Albumin 3.3 L Globulin 3.0 Albumin/Globulin Ratio 1.1 Assessment & Plan - Assessment and Plan (Free Text) Assessment: 82F with acute right lower leg ischemia d/t occlusion of bypass graft of the right leg Plan: -CTA with ileofemoral run off to further assess the occlusion -Further surgical planning pending results of CTA and discussion with patient and son about desire for amputation vs conservative management -Pain control -Medical management per primary Seen and discussed with Dr. Mohamud Segura, PGY2
[2017-12-21] MEDS: Multiple Vitamins Tab PO SCH (15:43)
[2017-12-21] MEDS ORDERED: Morphine 4 MG/ML VIAL IV PRN (16:43)
[2017-12-21] MEDS ORDERED: Albuterol HFA 90 mcg/actuation (8 g) IH SCH (18:00)
[2017-12-21] MEDS ORDERED: Iodixanol 320 mg/ml 150 ml Bottle IV ONE (18:45)
[2017-12-21] MEDS: Albuterol HFA 90 mcg/actuation (8 g) IH SCH (20:20)
[2017-12-21] MEDS: Oxycodone/Acetaminophen 5/325 mg Tab PO PRN ×2 (20:46→22:23)
--- NOTE | 2017-12-21 21:56 | CT ---
EXAM: CT Angiography Abdomen and Pelvis With Intravenous Contrast CLINICAL HISTORY: 82 years old, female; Pain and condition or disease; Other: Occluded bypass right leg; Foot pain; Bilateral; Prior surgery; Surgery date: 6+ months; Surgery type: Vascular bypass TECHNIQUE: Axial computed tomographic angiography images of the abdomen and pelvis with intravenous contrast. All CT scans at this facility use one or more dose reduction techniques, viz.: automated exposure control; ma/kV adjustment per patient size (including targeted exams where dose is matched to indication; i.e. head); or iterative reconstruction technique. MIP reconstructed images were created and reviewed. Coronal and sagittal reformatted images were created and reviewed. CONTRAST: 150 mL of visipaque 320 administered intravenously. COMPARISON: No relevant prior studies available. FINDINGS: Limitations: Motion artifact - mild. VASCULATURE: Aorta: [id number] atherosclerotic disease. No dissection. No aneurysm. Celiac trunk and mesenteric arteries: [id number] atherosclerotic disease of celiac axis and SMA. Moderate ostial stenosis of celiac axis and SMA. No occlusion. Renal arteries: Minimal atherosclerotic disease of renal arteries. Mild left ostial stenosis. No occlusion. Iliac arteries: Mild atherosclerotic disease of iliac arteries. Mild stenosis of left common iliac artery. No occlusion. Lung bases: Unremarkable. No mass. No consolidation. Pleural space: Small LEFT pleural effusion. Heart: Mild cardiomegaly. Mediastinum: Small hiatal hernia. ABDOMEN: Liver: Unremarkable. No mass. Gallbladder and bile ducts: Gallbladder not visualized. No significant ductal dilation. Pancreas: 1.6 x 1.2 x 1.1 cm hypodense lesion within body of pancreas. 1.2 x 1.0 x 0.7 cm hypodense lesion within the tail of pancreas. No ductal dilation. Spleen: Unremarkable. No splenomegaly. Adrenals: 1.1 x 1.0 x 1.0 cm lesion within LEFT adrenal gland, indeterminate by CT criteria. Kidneys and ureters: Unremarkable. No hydronephrosis. No solid mass. Stomach and bowel: Scattered diverticula within colon. No associated inflammatory stranding. No obstruction. No mucosal thickening. PELVIS: Appendix: Normal caliber. No inflammation. Bladder: Unremarkable. No mass. Reproductive: 5.7 x 5.3 x 4.0 cm hypodense lesion within RIGHT adnexal region. ABDOMEN and PELVIS: Intraperitoneal space: Trace free fluid within pelvis. No free air. Bones/joints: Degenerative changes and scoliosis of spine. No acute fracture. Soft tissues: Injection granulomas within gluteal soft tissues. Mild stranding within subcutaneous tissues. Lymph nodes: No pathologically enlarged lymph nodes. IMPRESSION: 1. Pancreatic lesions. Recommend a single follow-up abdominal MRI in 1 year. A limited T2-weighted MRI can be performed for routine follow-up. 2. Adrenal lesion, indeterminate. Recommend nonemergent MRI. 3. Adnexal lesion, indeterminate. Recommend ultrasound. 4. Incidental/non-acute findings are described above. EXAM: CT Angiography of the Right Lower Extremity With Intravenous Contrast CLINICAL HISTORY: 82 years old, female; Pain and condition or disease; Other: Occluded bypass right leg; Foot pain; Bilateral; Prior surgery; Surgery date: 6+ months; Surgery type: Vascular bypass TECHNIQUE: Axial computed tomographic angiography images of the right lower extremity with intravenous contrast using CT angiography protocol. MIP reconstructed images were created and reviewed. CONTRAST: 150 mL of visipaque 320 administered intravenously. COMPARISON: No relevant prior studies available. FINDINGS: VASCULATURE: Right femoral/popliteal arteries: Mild atherosclerotic disease of common femoral artery. [id number] atherosclerotic disease of superficial femoral artery. Occlusion of popliteal artery. Right calf/foot arteries: Reconstituted diminished, attenuated intermittent flow to anterior tibial, posterior tibial, and peroneal arteries. LOWER EXTREMITY: Bones/joints: No acute fracture. Chronic deformity posterior cortex patella and anterior cortex lateral femoral condyle. Mild tricompartment osteoarthritis of knee. Lateral subluxation of patella. 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 Amputation second digit to level shaft of proximal phalanx. No definite cortical destruction. Small knee joint effusion. Soft tissues: [id number] stranding within subcutaneous tissues of thigh. Minimal ulceration along medial aspect of thigh. Mild skin thickening. Moderate to extensive stranding within subcutaneous tissues of lower leg and foot. Moderate ulceration along posteromedial aspect of lower leg. Few foci of air within adjacent soft tissues. Mild skin thickening. IMPRESSION: 1. Vascular disease as above. 2. Findings suggestive of cellulitis. Clinical correlation is needed. 3. Incidental/non-acute findings are described above. EXAM: CT Angiography of the Left Lower Extremity With Intravenous Contrast CLINICAL HISTORY: 82 years old, female; Pain and condition or disease; Other: Occluded bypass right leg; Foot pain; Bilateral; Prior surgery; Surgery date: 6+ months; Surgery type: Vascular bypass TECHNIQUE: Axial computed tomographic angiography images of the left lower extremity with intravenous contrast using CT angiography protocol. MIP reconstructed images were created and reviewed. CONTRAST: 150 mL of visipaque 320 administered intravenously. COMPARISON: No relevant prior studies available. FINDINGS: VASCULATURE: Left femoral/popliteal arteries: Mild atherosclerotic disease of common femoral artery. Mild atherosclerotic disease of superficial femoral artery. Mild atherosclerotic disease of popliteal artery. No occlusion or significant stenosis. Left calf/foot arteries: Mild atherosclerotic disease of anterior tibial, posterior tibial, and peroneal arteries. No occlusion or significant stenosis. LOWER EXTREMITY: Bones/joints: No acute fracture. Mild tricompartment osteoarthritis of knee. Lateral subluxation of patella. No definite cortical destruction. Small knee joint effusion. Soft tissues: Minimal stranding within subcutaneous tissues of thigh. Moderate to extensive stranding within subcutaneous tissues of lower leg and foot. Minimal skin thickening.
[2017-12-22] MEDS: Oxycodone/Acetaminophen 5/325 mg Tab PO PRN ×3 (00:42→06:07)
[2017-12-22] MEDS: Albuterol HFA 90 mcg/actuation (8 g) IH SCH ×2 (08:14→20:19)
[2017-12-22 08:16] LABS: BASO % 0.3 % (0.0-2.0); EOS # 0.2 K/uL (0.0-0.7); EOS % 1.6 % (0.0-4.0); HEMOGLOBIN 9.3 g/dL (11.0-16.0); LYMPH # 1.4 K/uL (1.0-4.3); LYMPH % 14.3 % (20.0-40.0); MEAN CELL VOLUME 93.6 fL (81.0-99.0); MEAN CORPUSCULAR HEMOGLOBIN 31.5 pg (27.0-31.0); MEAN CORPUSCULAR HGB CONC 33.7 g/dL (33.0-37.0); MEAN PLATELET VOLUME 9.1 fL (7.2-11.7); MONO # 0.8 K/uL (0.0-0.8); MONO % 8.3 % (0.0-10.0); NEUT # 7.4 K/uL (1.8-7.0); NEUT % 75.5 % (50.0-75.0); RBC 2.96 Mil/uL (3.80-5.20); RED CELL DISTRIBUTION WIDTH 14.9 % (11.5-14.5); WHITE BLOOD COUNT 9.8 K/uL (4.8-10.8)
[2017-12-22 08:36] LABS: ALBUMIN 3.1 g/dL (3.5-5.0); ALT/SGPT 15 U/L (9-52); AST/SGOT 33 U/L (14-36); BLOOD UREA NITROGEN 12 mg/dL (7-17); CALCIUM 8.3 mg/dl (8.6-10.4); GFR AFRICAN-AMERICAN > 60; GFR NON-AFRICAN AMERICAN > 60; HDL CHOLESTEROL 27 mg/dL (30-70)
[2017-12-22 08:42] LABS: LDL CHOLESTEROL 72 mg/dL (0-129)
--- NOTE | 2017-12-22 09:38 | CP.PCM.PN ---
Subjective - Date & Time of Evaluation Date of Evaluation: 12/22/17 Time of Evaluation: 07:20 - Subjective Subjective: Pt s/e at bedside this AM.No adverse events overnight. Patient complains of pain in the R lower extremity Objective - Vital Signs/Intake and Output Vital Signs (last 24 hours): Temp Pulse Resp BP Pulse Ox 98.6 F 87 20 95/62 L 95 12/22/17 07:50 12/22/17 07:50 12/22/17 07:50 12/22/17 07:50 12/22/17 07:50 - Medications Medications: Current Medications Albuterol (Ventolin Hfa 90 Mcg/Actuation (8 G)) 2 puff IH RBID [facility] Last Admin: 12/22/17 08:14 Dose: 2 puff Aspirin (Ecotrin) 81 mg PO DAILY [facility] Last Admin: 12/21/17 15:43 Dose: 81 mg Clopidogrel Bisulfate (Plavix) 75 mg PO DAILY [facility] Last Admin: 12/21/17 15:43 Dose: 75 mg Enalapril Maleate (Vasotec) 20 mg PO DAILY [facility] Last Admin: 12/21/17 15:45 Dose: 20 mg Heparin Sodium (Porcine) (Heparin) 5,000 units SC Q8 [facility] Last Admin: 12/22/17 05:57 Dose: 5,000 units Multivitamins (Hexavitamin) 1 tab PO DAILY [facility] Last Admin: 12/21/17 15:43 Dose: 1 tab Prfxj-[id number] Ethyl Esters (Lovaza) 1 gm PO DAILY [facility] Oxycodone/Acetaminophen (Percocet 5/325 Mg Tab) 1 tab PO Q4H PRN PRN Reason: Pain, moderate (4-7) Stop: 12/24/17 16:51 Last Admin: 12/22/17 02:31 Dose: 1 tab Oxycodone/Acetaminophen (Percocet 5/325 Mg Tab) 2 tab PO Q4H PRN PRN Reason: Pain, severe (8-10) Stop: 12/24/17 16:52 Last Admin: 12/22/17 06:07 Dose: 2 tab Pregabalin (Lyrica) 75 mg PO DAILY [facility] - Labs Labs: 12/22/17 08:02 12/22/17 08:02 APTT 34 SECONDS (21-34) 12/21/17 20:01 - Constitutional Appears: Non-toxic, No Acute Distress, In Acute Distress, Chronically Ill - Head Exam Head Exam: ATRAUMATIC, NORMOCEPHALIC - Eye Exam Eye Exam: Normal appearance. absent: Conjunctival injection, Scleral icterus - ENT Exam ENT Exam: Mucous Membranes Moist, Normal Oropharynx - Respiratory Exam Respiratory Exam: NORMAL BREATHING PATTERN. absent: Accessory Muscle Use, Respiratory Distress - Cardiovascular Exam Cardiovascular Exam: RRR - GI/Abdominal Exam GI & Abdominal Exam: Soft. absent: Distended - Extremities Exam Additional comments: right leg with wounds from prior bypass incision sites--no purulent drainage, right lower leg cool to the touch and tender to palpation, no palpable pedal pulses - Neurological Exam Neurological Exam: Alert, Awake, Oriented x3 - Psychiatric Exam Psychiatric exam: Normal Affect, Normal Mood - Skin Skin Exam: Dry, Intact, Normal Color, Warm Assessment and Plan - Assessment and Plan (Free Text) Assessment: 82F with occluded right bypass graft of the lower extremity Plan: -laborer laboratory on for angiogram and possible angioplasty -If unsuccessful may need amputation of the right lower leg -PRN pain medication -medical management per primary Discussed with Dr. Mohamud Segura, PGY2
[2017-12-22] MEDS: Multiple Vitamins Tab PO SCH (10:06)
[2017-12-22] MEDS: Omega-3-Acid Ethyl Esters 1 GM Cap PO SCH (10:07)
[2017-12-22] MEDS: oxyCODONE 20 mg ER Tab (oxyCONTIN) PO SCH ×2 (12:43→21:20)
--- NOTE | 2017-12-22 14:35 | CP.PCM.PN ---
Subjective - Date & Time of Evaluation Date of Evaluation: 12/22/17 Time of Evaluation: 07:00 - Subjective Subjective: Medicine progress note ( Dr. Mahmood's service) Patient was seen and examined at bedside with son present. Patient reports that she is doing well with no acute issues at this time. Patient is still with moderate right leg pain secondary to ischemia. Patient denies chest pain, palpitations, SOB, fever, chills, nausea, abdominal pain. Objective - Vital Signs/Intake and Output Vital Signs (last 24 hours): Temp Pulse Resp BP Pulse Ox 98.6 F 87 20 95/62 L 100 12/22/17 07:50 12/22/17 13:11 12/22/17 07:50 12/22/17 10:07 12/22/17 13:51 - Medications Medications: Current Medications Albuterol (Ventolin Hfa 90 Mcg/Actuation (8 G)) 2 puff IH RBID [facility] Last Admin: 12/22/17 08:14 Dose: 2 puff Aspirin (Ecotrin) 81 mg PO DAILY [facility] Last Admin: 12/22/17 10:06 Dose: 81 mg Clopidogrel Bisulfate (Plavix) 75 mg PO DAILY [facility] Last Admin: 12/22/17 10:06 Dose: 75 mg Enalapril Maleate (Vasotec) 20 mg PO DAILY [facility] Last Admin: 12/22/17 10:07 Dose: Not Given Heparin Sodium (Porcine) (Heparin) 5,000 units SC Q8 [facility] Last Admin: 12/22/17 13:51 Dose: 5,000 units Multivitamins (Hexavitamin) 1 tab PO DAILY [facility] Last Admin: 12/22/17 10:06 Dose: 1 tab Irtjl-8-Vfiw Ethyl Esters (Lovaza) 1 gm PO DAILY [facility] Last Admin: 12/22/17 10:07 Dose: 1 gm Oxycodone HCl (Oxycontin Extended Release Tab) 20 mg PO Q12 [facility] Last Admin: 12/22/17 12:43 Dose: 20 mg Oxycodone/Acetaminophen (Percocet 5/325 Mg Tab) 1 tab PO Q4H PRN PRN Reason: Pain, moderate (4-7) Stop: 12/24/17 16:51 Last Admin: 12/22/17 02:31 Dose: 1 tab Oxycodone/Acetaminophen (Percocet 5/325 Mg Tab) 2 tab PO Q4H PRN PRN Reason: Pain, severe (8-10) Stop: 12/24/17 16:52 Last Admin: 12/22/17 06:07 Dose: 2 tab Pregabalin (Lyrica) 75 mg PO DAILY [facility] Last Admin: 12/22/17 10:07 Dose: 75 mg - Labs Labs: 12/22/17 08:02 12/22/17 08:02 APTT 34 SECONDS (21-34) 12/21/17 20:01 - Constitutional Appears: No Acute Distress - Head Exam Head Exam: ATRAUMATIC, NORMAL INSPECTION - Eye Exam Eye Exam: EOMI - ENT Exam ENT Exam: Mucous Membranes Moist - Respiratory Exam Respiratory Exam: Clear to Ausculation Bilateral, NORMAL BREATHING PATTERN - Cardiovascular Exam Cardiovascular Exam: REGULAR RHYTHM, +S1, +S2 - GI/Abdominal Exam GI & Abdominal Exam: Soft, Normal Bowel Sounds. 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 Mallory---> Help appreciated * All management as per vascular surgery. * Plans for CT angiogram on , 12/24/17 * Anticipation for possible surgical intervention Risk Stratification for possible surgical intervention 1. Age 2. Hx of HTN- well-controlled with medication 3. Hx COPD: Well-controlle, no signs of acute exacerbation 4. Hx of TIA x3: Currently stable 5. Cardiac: Stress test was done preop and found to be negative. Echo showed EF 55-60%, hypertensive heart disease, and diastolic dysfunction (10/08/17) Patient is moderate to high risk and can undergo anticipated possible surgical intervention Diagnostic imaging: Arterial duplex right lower extremity (12/21/17): Occuluded right mid superficial femoral to posterior tibial artery bypass graft, anterior tibial and dorsalis pedis arteries. 30-49% stenosis of the right proximal superficial femoral artery Abdominal Angiography (12/21/17): Right femoral/popliteal arteries: Mild atherosclerotic disease of common femoral artery. [id number] atherosclerotic disease of superficial femoral artery. Occlusion of popliteal artery. Right calf/foot arteries: Reconstituted diminished, attenuated intermittent flow to anterior tibial, posterior tibial, and peroneal arteries. 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 Amputation second digit to level shaft of proximal phalanx. Medications: * ASA 81mg PO daily * Plavix 75mg PO daily * Lyrica 75mg PO daily * Percocet 1 tab PO Q4H prn and 2 tab PO q4h prn (Pain control) * Oxycontin 20mg PO Q12H Status: Acute (2) Hypertension Assessment & Plan: Controlled with medication Continue home medication: * Vasotec 20mg PO daily Status: Acute (3) Hypertriglyceridemia Assessment & Plan: Continue home medication: * Lovaza 1 tab po daily Lipid Panel (12/22/17): * TGL:125, Cholesterol:128, LDL:72 and HDL:27 Status: Acute (4) Low HDL (under 40) Assessment & Plan: Medication: * Niacin 250mg PO HS Status: Acute (5) Prophylactic measure Assessment & Plan: GI: Pepcid 20mg PO daily DVT: SCDs on left extremity. Heparin 5,000 units Q8H All plans and management discussed with Dr. Mahmood Status: Acute
[2017-12-23] MEDS: Oxycodone/Acetaminophen 5/325 mg Tab PO PRN ×5 (01:04→23:53)
[2017-12-23 07:38] LABS: BASO # 0.1 K/uL (0.0-0.2); BASO % 0.7 % (0.0-2.0); EOS # 0.2 K/uL (0.0-0.7); EOS % 1.7 % (0.0-4.0); HEMOGLOBIN 9.6 g/dL (11.0-16.0); LYMPH # 1.9 K/uL (1.0-4.3); MEAN CORPUSCULAR HEMOGLOBIN 31.1 pg (27.0-31.0); MEAN CORPUSCULAR HGB CONC 33.5 g/dL (33.0-37.0); MEAN PLATELET VOLUME 8.9 fL (7.2-11.7); MONO # 0.8 K/uL (0.0-0.8); MONO % 8.3 % (0.0-10.0); NEUT % 70.3 % (50.0-75.0); RBC 3.09 Mil/uL (3.80-5.20); RED CELL DISTRIBUTION WIDTH 14.8 % (11.5-14.5)
[2017-12-23] MEDS: Albuterol HFA 90 mcg/actuation (8 g) IH SCH ×2 (07:38→20:00)
[2017-12-23 07:55] LABS: ALB/GLOB RATIO 1.1 (1.0-2.1); ALBUMIN 3.1 g/dL (3.5-5.0); ALT/SGPT 18 U/L (9-52); AST/SGOT 42 U/L (14-36); BLOOD UREA NITROGEN 14 mg/dL (7-17); CALCIUM 8.4 mg/dl (8.6-10.4); GFR AFRICAN-AMERICAN > 60; GFR NON-AFRICAN AMERICAN > 60
[2017-12-23] MEDS: Multiple Vitamins Tab PO SCH (09:20)
[2017-12-23] MEDS: oxyCODONE 20 mg ER Tab (oxyCONTIN) PO SCH (09:20)
[2017-12-23] MEDS: Omega-3-Acid Ethyl Esters 1 GM Cap PO SCH (09:20)
[2017-12-23] MEDS ORDERED: Bisacodyl 5mg EC Tab PO ONE (11:20)
--- NOTE | 2017-12-23 11:39 | CP.PCM.PN ---
Subjective - Date & Time of Evaluation Date of Evaluation: 12/23/17 Time of Evaluation: 11:36 - Subjective Subjective: Vascular Surgery: Dr. Mallory Pt seen and examined. No acute overnight events. States she continues to have burning pain in her R foot at night. No other complaints at this time. Denies F/ C. Objective - Vital Signs/Intake and Output Vital Signs (last 24 hours): Temp Pulse Resp BP Pulse Ox 98.6 F 94 H 18 101/54 L 96 12/23/17 07:55 12/23/17 07:55 12/23/17 07:55 12/23/17 09:24 12/23/17 07:55 Intake and Output: 12/23/17 12/23/17 06:59 18:59 Intake Total 200 Balance 200 - Medications Medications: Current Medications Albuterol (Ventolin Hfa 90 Mcg/Actuation (8 G)) 2 puff IH RBID [facility] Last Admin: 12/23/17 07:38 Dose: 2 puff Aspirin (Ecotrin) 81 mg PO DAILY [facility] Last Admin: 12/23/17 09:20 Dose: 81 mg Clopidogrel Bisulfate (Plavix) 75 mg PO DAILY [facility] Last Admin: 12/23/17 09:19 Dose: 75 mg Docusate Sodium (Colace) 100 mg PO TID [facility] Enalapril Maleate (Vasotec) 20 mg PO DAILY [facility] Last Admin: 12/23/17 09:24 Dose: Not Given Heparin Sodium (Porcine) (Heparin) 5,000 units SC Q8 [facility] Last Admin: 12/23/17 05:18 Dose: 5,000 units Ciprofloxacin (Cipro 400mg/200ml Dsw) 400 mg in 200 mls @ 133 mls/hr IVPB Q12H [facility] PRN Reason: Protocol Multivitamins (Hexavitamin) 1 tab PO DAILY [facility] Last Admin: 12/23/17 09:20 Dose: 1 tab Niacin (Niacin) 250 mg PO HS [facility] Last Admin: 12/22/17 21:20 Dose: 250 mg Okwjb-5-Uxze Ethyl Esters (Lovaza) 1 gm PO DAILY [facility] Last Admin: 12/23/17 09:20 Dose: 1 gm Oxycodone HCl (Oxycontin Extended Release Tab) 30 mg PO Q12 [facility] Oxycodone/Acetaminophen (Percocet 5/325 Mg Tab) 1 tab PO Q4H PRN PRN Reason: Pain, moderate (4-7) Stop: 12/24/17 16:51 Last Admin: 12/23/17 07:53 Dose: 1 tab Oxycodone/Acetaminophen (Percocet 5/325 Mg Tab) 2 tab PO Q4H PRN PRN Reason: Pain, severe (8-10) Stop: 12/24/17 16:52 Last Admin: 12/23/17 01:04 Dose: 2 tab Pregabalin (Lyrica) 75 mg PO DAILY [facility] Last Admin: 12/23/17 09:20 Dose: 75 mg Saccharomyces Boulardii (Florastor) 250 mg PO BID [facility] - Labs Labs: 12/23/17 07:32 12/23/17 07:32 APTT 34 SECONDS (21-34) 12/21/17 20:01 - Constitutional Appears: No Acute Distress - Head Exam Head Exam: ATRAUMATIC, NORMOCEPHALIC - Eye Exam Eye Exam: Normal appearance - ENT Exam ENT Exam: Mucous Membranes Moist - Respiratory Exam Respiratory Exam: NORMAL BREATHING PATTERN - Cardiovascular Exam Cardiovascular Exam: RRR - GI/Abdominal Exam GI & Abdominal Exam: Soft. absent: Tenderness - Extremities Exam Additional comments: RLE: cold to touch, no palpable DP/PT - Neurological Exam Neurological Exam: Alert, Awake, Oriented x3 - Skin Skin Exam: Dry Assessment and Plan - Assessment and Plan (Free Text) Assessment: 82F with PAD & occlusion of RLE bypass graft Plan: - plan for angio tomorrow AM - Keep NPO after midnight - d/w Dr. Mohamud Sheriff, PGY-3
[2017-12-23] MEDS: Saccharomyces Boulardi 250 mg Cap PO SCH ×2 (11:51→17:28)
[2017-12-23] MEDS: Ciprofloxacin 400mg/200ml D5W 400 MG/200 ML BAG IVPB SCH ×2 (11:52→22:32)
--- NOTE | 2017-12-23 13:12 | CP.PCM.PN ---
Subjective - Date & Time of Evaluation Date of Evaluation: 12/23/17 Time of Evaluation: 07:30 - Subjective Subjective: Medicine progress note ( Dr. Mahmood's service) Patient was seen and examined at bedside with son present. Patient reports that she is doing well with no acute issues at this time. Patient is still with moderate right leg pain secondary to severe PVD. Patient denies chest pain, palpitations, SOB, fever, chills, nausea, abdominal pain. Patient and family members are aware that patient is having a CT angiogram tomorrow, 12/24/17. Objective - Vital Signs/Intake and Output Vital Signs (last 24 hours): Temp Pulse Resp BP Pulse Ox 98.6 F 94 H 18 101/54 L 96 12/23/17 07:55 12/23/17 07:55 12/23/17 07:55 12/23/17 09:24 12/23/17 07:55 Intake and Output: 12/23/17 12/23/17 06:59 18:59 Intake Total 200 Balance 200 - Medications Medications: Current Medications Albuterol (Ventolin Hfa 90 Mcg/Actuation (8 G)) 2 puff IH RBID [facility] Last Admin: 12/23/17 07:38 Dose: 2 puff Aspirin (Ecotrin) 81 mg PO DAILY [facility] Last Admin: 12/23/17 09:20 Dose: 81 mg Clopidogrel Bisulfate (Plavix) 75 mg PO DAILY [facility] Last Admin: 12/23/17 09:19 Dose: 75 mg Docusate Sodium (Colace) 100 mg PO TID [facility] Enalapril Maleate (Vasotec) 20 mg PO DAILY [facility] Last Admin: 12/23/17 09:24 Dose: Not Given Heparin Sodium (Porcine) (Heparin) 5,000 units SC Q8 [facility] Last Admin: 12/23/17 05:18 Dose: 5,000 units Ciprofloxacin (Cipro 400mg/200ml Dsw) 400 mg in 200 mls @ 133 mls/hr IVPB Q12H [facility] PRN Reason: Protocol Last Admin: 12/23/17 11:52 Dose: 133 mls/hr Multivitamins (Hexavitamin) 1 tab PO DAILY [facility] Last Admin: 12/23/17 09:20 Dose: 1 tab Niacin (Niacin) 250 mg PO HS [facility] Last Admin: 12/22/17 21:20 Dose: 250 mg Urwhc-6-Bevj Ethyl Esters (Lovaza) 1 gm PO DAILY [facility] Last Admin: 12/23/17 09:20 Dose: 1 gm Oxycodone HCl (Oxycontin Extended Release Tab) 30 mg PO Q12 [facility] Oxycodone/Acetaminophen (Percocet 5/325 Mg Tab) 1 tab PO Q4H PRN PRN Reason: Pain, moderate (4-7) Stop: 12/24/17 16:51 Last Admin: 12/23/17 07:53 Dose: 1 tab Oxycodone/Acetaminophen (Percocet 5/325 Mg Tab) 2 tab PO Q4H PRN PRN Reason: Pain, severe (8-10) Stop: 12/24/17 16:52 Last Admin: 12/23/17 11:51 Dose: 2 tab Pregabalin (Lyrica) 75 mg PO DAILY [facility] Last Admin: 12/23/17 09:20 Dose: 75 mg Saccharomyces Boulardii (Florastor) 250 mg PO BID [facility] Last Admin: 12/23/17 11:51 Dose: 250 mg - Labs Labs: 12/23/17 07:32 12/23/17 07:32 APTT 34 SECONDS (21-34) 12/21/17 20:01 - Constitutional Appears: Well, No Acute Distress - Head Exam Head Exam: ATRAUMATIC, NORMAL INSPECTION - Eye Exam Eye Exam: EOMI, Normal appearance - ENT Exam ENT Exam: Mucous Membranes Moist - Respiratory Exam Respiratory Exam: Clear to Ausculation Bilateral, NORMAL BREATHING PATTERN. absent: Rhonchi, Wheezes, Respiratory Distress - Cardiovascular Exam Cardiovascular Exam: REGULAR RHYTHM, +S1, +S2 - GI/Abdominal Exam GI & Abdominal Exam: Soft, Normal Bowel Sounds. 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 Mohamud cortez---> Help appreciated * All management as per vascular surgery. * Plans for CT angiogram on , 12/24/17 * Anticipation for possible surgical intervention Diagnostic imaging: Arterial duplex right lower extremity (12/21/17): Occuluded right mid superficial femoral to posterior tibial artery bypass graft, anterior tibial and dorsalis pedis arteries. 30-49% stenosis of the right proximal superficial femoral artery Abdominal Angiography (12/21/17): Right femoral/popliteal arteries: Mild atherosclerotic disease of common femoral artery. [id number] atherosclerotic disease of superficial femoral artery. Occlusion of popliteal artery. Right calf/foot arteries: Reconstituted diminished, attenuated intermittent flow to anterior tibial, posterior tibial, and peroneal arteries. 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 Amputation second digit to level shaft of proximal phalanx. Medications: * ASA 81mg PO daily * Plavix 75mg PO daily * Lyrica 75mg PO daily * Percocet 1 tab PO Q4H prn and 2 tab PO q4h prn (Pain control) * Oxycontin 30mg PO Q12H Status: Acute (2) Hypertension Assessment & Plan: Controlled with medication Continue home medication: * Vasotec 20mg PO daily Status: Acute (3) Hypertriglyceridemia Assessment & Plan: Continue home medication: * Lovaza 1 tab po daily Lipid Panel (12/22/17): * TGL:125, Cholesterol:128, LDL:72 and HDL:27 Status: Acute (4) Low HDL (under 40) Assessment & Plan: Medication: Niacin 250mg PO HS Status: Acute (5) Ulcer of right lower leg Assessment & Plan: Wound Culture: + Klebsiella Oxytoca and Corynebacterium Species Medication; * Cipro 400mg IV Q12h * Florastor 250mg PO BID Status: Acute (6) Prophylactic measure Assessment & Plan: GI: Pepcid 20mg PO daily DVT: SCDs on left extremity. Heparin 5,000 units Q8H All plans and management discussed with Dr. Mahmood Status: Acute
[2017-12-23] MEDS: oxyCODONE 10 mg ER Tab (oxyCONTIN) PO SCH (21:02)
[2017-12-24] MEDS: Albuterol HFA 90 mcg/actuation (8 g) IH SCH ×2 (07:05→22:46)
[2017-12-24 07:29] LABS: BASO # 0.1 K/uL (0.0-0.2); BASO % 0.4 % (0.0-2.0); EOS # 0.3 K/uL (0.0-0.7); EOS % 2.3 % (0.0-4.0); LYMPH # 1.9 K/uL (1.0-4.3); LYMPH % 14.8 % (20.0-40.0); MEAN CELL VOLUME 92.8 fL (81.0-99.0); MEAN CORPUSCULAR HEMOGLOBIN 31.5 pg (27.0-31.0); MONO # 1.1 K/uL (0.0-0.8); MONO % 8.9 % (0.0-10.0); NEUT # 9.2 K/uL (1.8-7.0); NEUT % 73.6 % (50.0-75.0); RBC 2.86 Mil/uL (3.80-5.20); RED CELL DISTRIBUTION WIDTH 14.9 % (11.5-14.5); WHITE BLOOD COUNT 12.6 K/uL (4.8-10.8)
[2017-12-24 07:38] LABS: INR 1.2; PROTHROMBIN TIME 13.3 SECONDS (9.7-12.2)
[2017-12-24 07:55] LABS: ALBUMIN 3.1 g/dL (3.5-5.0); ALT/SGPT 16 U/L (9-52); AST/SGOT 44 U/L (14-36); BLOOD UREA NITROGEN 24 mg/dL (7-17); CALCIUM 8.5 mg/dl (8.6-10.4); GFR AFRICAN-AMERICAN > 60; GFR NON-AFRICAN AMERICAN > 60
[2017-12-24] MEDS: Oxycodone/Acetaminophen 5/325 mg Tab PO PRN ×2 (08:21→15:27)
--- NOTE | 2017-12-24 08:51 | RAD ---
HISTORY: pre-op eval COMPARISON: 10/13/2017. FINDINGS: LUNGS: There are low lung volumes. No focal consolidation. PLEURA: No significant pleural effusion identified, no pneumothorax apparent. CARDIOVASCULAR: The heart is not enlarged. OSSEOUS STRUCTURES: No significant abnormalities. VISUALIZED UPPER ABDOMEN: Normal. OTHER FINDINGS: None. IMPRESSION: Low lung volumes may be related to poor inspiratory effort. No acute findings.
[2017-12-24] MEDS ORDERED: Lidocaine/Epinephrine 1% 1:100000 10 ML IJ ONE (09:58)
[2017-12-24] MEDS ORDERED: Midazolam 2 MG/2 ML VIAL ONE (10:11)
[2017-12-24] MEDS ORDERED: Propofol 10 mg/ml Inj (20 ML) ONE (10:19)
[2017-12-24] MEDS: Multiple Vitamins Tab PO SCH (10:27)
[2017-12-24] MEDS: Saccharomyces Boulardi 250 mg Cap PO SCH ×2 (10:27→20:13)
[2017-12-24] MEDS: oxyCODONE 10 mg ER Tab (oxyCONTIN) PO SCH ×2 (10:28→22:00)
[2017-12-24] MEDS: Omega-3-Acid Ethyl Esters 1 GM Cap PO SCH (10:28)
--- NOTE | 2017-12-24 12:22 | CP.PCM.PN ---
Subjective - Date & Time of Evaluation Date of Evaluation: 12/24/17 Time of Evaluation: 07:15 - Subjective Subjective: Medicine progress note ( Dr. Mahmood's service) Patient was seen and examined at bedside with son present. Patient reports that she is doing well with no acute issues at this time. Patient is still with moderate right leg pain secondary to severe PVD. Patient denies chest pain, palpitations, SOB, fever, chills, nausea, abdominal pain. Patient is aware that she is having a CT angiogram today with Dr. Mallory. Objective - Vital Signs/Intake and Output Vital Signs (last 24 hours): Temp Pulse Resp BP Pulse Ox 98.5 F 93 H 20 102/62 98 12/24/17 07:39 12/24/17 07:39 12/24/17 07:39 12/24/17 07:39 12/24/17 07:39 - Medications Medications: Current Medications Albuterol (Ventolin Hfa 90 Mcg/Actuation (8 G)) 2 puff IH RBID [facility] Last Admin: 12/23/17 07:38 Dose: 2 puff Aspirin (Ecotrin) 81 mg PO DAILY [facility] Last Admin: 12/23/17 09:20 Dose: 81 mg Clopidogrel Bisulfate (Plavix) 75 mg PO DAILY [facility] Last Admin: 12/23/17 09:19 Dose: 75 mg Docusate Sodium (Colace) 100 mg PO TID [facility] Last Admin: 12/24/17 10:27 Dose: Not Given Enalapril Maleate (Vasotec) 20 mg PO DAILY [facility] Last Admin: 12/24/17 10:28 Dose: Not Given Heparin Sodium (Porcine) (Heparin) 5,000 units SC Q8 [facility] Last Admin: 12/23/17 21:06 Dose: Not Given Ciprofloxacin (Cipro 400mg/200ml Dsw) 400 mg in 200 mls @ 133 mls/hr IVPB Q12H [facility] PRN Reason: Protocol Last Admin: 12/23/17 22:32 Dose: 133 mls/hr Multivitamins (Hexavitamin) 1 tab PO DAILY [facility] Last Admin: 12/24/17 10:27 Dose: Not Given Niacin (Niacin) 250 mg PO HS [facility] Last Admin: 12/23/17 21:01 Dose: 250 mg Kdils-9-Enbr Ethyl Esters (Lovaza) 1 gm PO DAILY [facility] Last Admin: 12/24/17 10:28 Dose: Not Given Oxycodone HCl (Oxycontin Extended Release Tab) 30 mg PO Q12 [facility] Last Admin: 12/24/17 10:28 Dose: Not Given Oxycodone/Acetaminophen (Percocet 5/325 Mg Tab) 1 tab PO Q4H PRN PRN Reason: Pain, moderate (4-7) Stop: 12/24/17 16:51 Last Admin: 12/24/17 08:21 Dose: 1 tab Oxycodone/Acetaminophen (Percocet 5/325 Mg Tab) 2 tab PO Q4H PRN PRN Reason: Pain, severe (8-10) Stop: 12/24/17 16:52 Last Admin: 12/23/17 23:53 Dose: 2 tab Pregabalin (Lyrica) 75 mg PO DAILY [facility] Last Admin: 12/24/17 10:28 Dose: Not Given Saccharomyces Boulardii (Florastor) 250 mg PO BID [facility] Last Admin: 12/24/17 10:27 Dose: Not Given - Labs Labs: 12/24/17 07:20 12/24/17 07:20 PT 13.3 SECONDS (9.7-12.2) H 12/24/17 07:20 INR 1.2 12/24/17 07:20 APTT 33 SECONDS (21-34) 12/24/17 07:20 - Constitutional Appears: Well, No Acute Distress - Head Exam Head Exam: ATRAUMATIC, NORMAL INSPECTION - Eye Exam Eye Exam: EOMI, Normal appearance - ENT Exam ENT Exam: Mucous Membranes Moist - Respiratory Exam Respiratory Exam: Clear to Ausculation Bilateral, NORMAL BREATHING PATTERN. absent: Rhonchi, Wheezes, Respiratory Distress - Cardiovascular Exam Cardiovascular Exam: REGULAR RHYTHM, +S1, +S2. absent: Murmur - GI/Abdominal Exam GI & Abdominal Exam: Soft, Normal Bowel Sounds. absent: Guarding, Rigid, Tenderness - Extremities Exam Extremities Exam: Normal Inspection. 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 Mallory---> Help appreciated * All management as per vascular surgery. * Plans for CT angiogram on , 12/24/17 * Anticipation for possible surgical intervention Diagnostic imaging: Arterial duplex right lower extremity (12/21/17): Occuluded right mid superficial femoral to posterior tibial artery bypass graft, anterior tibial and dorsalis pedis arteries. 30-49% stenosis of the right proximal superficial femoral artery Abdominal Angiography (12/21/17): Right femoral/popliteal arteries: Mild atherosclerotic disease of common femoral artery. [id number] atherosclerotic disease of superficial femoral artery. Occlusion of popliteal artery. Right calf/foot arteries: Reconstituted diminished, attenuated intermittent flow to anterior tibial, posterior tibial, and peroneal arteries. 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 Amputation second digit to level shaft of proximal phalanx. F/u CT angiogram results Medications: * ASA 81mg PO daily * Plavix 75mg PO daily * Lyrica 75mg PO daily * Percocet 1 tab PO Q4H prn and 2 tab PO q4h prn (Pain control) * Oxycontin 30mg PO Q12H Status: Acute (2) Hypertension Assessment & Plan: Controlled with medication Continue home medication: * Vasotec 20mg PO daily Status: Acute (3) Hypertriglyceridemia Assessment & Plan: Continue home medication: * Lovaza 1 tab po daily Lipid Panel (12/22/17): * TGL:125, Cholesterol:128, LDL:72 and HDL:27 Status: Acute (4) Low HDL (under 40) Assessment & Plan: Medication: Niacin 250mg PO HS Status: Acute (5) Ulcer of right lower leg Assessment & Plan: Wound Culture: + Klebsiella Oxytoca and Corynebacterium Species Medications/Management: * Cipro 400mg IV Q12h * Florastor 250mg PO BID * Wound Care Status: Acute (6) Prophylactic measure Assessment & Plan: GI: Pepcid 20mg PO daily DVT: SCDs on left extremity. Heparin 5,000 units Q8H (Held for CT angiogram) Disposition: Awaiting final management as per surgical team All plans and management discussed with Dr. Mahmood Status: Acute
[2017-12-24] MEDS ORDERED: Iodixanol 320 MG/ML 100 ML BOTTLE IV ONE (12:33)
--- NOTE | 2017-12-24 13:03 | PCM.SURG1 ---
Surgeon's Initial Post Op Note - Surgeon's Notes Surgeon: kun Front Desk Team Member: 0 Type of Anesthesia: IV Sedation Anesthesia Administered By: crys Pre-Operative Diagnosis: pvd/ ischemic ulcer/gangrene tight leg Operative Findings: occluded bypass. no named vessels seen on foot Post-Operative Diagnosis: same Operation Performed: aortofemoral angiogrm via left groin. selective catherization of right femoral artery. angiojet thrombolysis of occluded bypass. balloon angioplasty of proximal anastomosis ( distal sfa). balloon angioplasty of posterior tibial artery. perclose left groin. ceployment of 10x6 viabahn and 7x39 vbx at ruptures proximal anastomsis Specimen/Specimens Removed: 0 Estimated Blood Loss: EBL {In ML}: 50 Blood Products Given: N/A Drains Used: No Drains Post-Op Condition: Good Date of Surgery/Procedure: 12/24/17 Time of Surgery/Procedure: 13:04
[2017-12-24] MEDS ORDERED: Dextrose 5%/0.45% NS 1,000 ML IV SCH (13:15)
[2017-12-24] MEDS: Ciprofloxacin 400mg/200ml D5W 400 MG/200 ML BAG IVPB SCH (13:36)
--- NOTE | 2017-12-24 15:55 | CP.PCM.CON ---
History of Present Illness - History of Present Illness History of Present Illness: Critical Care Consult Note for Dr. Kelli Moody This is an 82 year old female with PMHx PVD, Raynoud's phenomenon who presented to the hospital with worsening right leg pain. 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 Patient underwent selective catheterization of the right femoral artery with angiojet thrombolysis of the occluded bypass. Patient also had balloon angioplasty of proximal anastomosis and posterior tibial artery. Patient seen and examined in the ICU complaining of right leg pain. PMHx: PVD, HTN, arthritis, Raynoud's phenomenon, Osteoporosis, TIA(x3), peripheral edema, fractures (ribs and 4 compression cervical fractures) PSHx: Significant surgical history of the vessels of the right leg. Tubal ligation, cholecystectomy, Soft tissue mass excision from back, cataract surgery Allergies: NKDA Social: Denies tobacco, alcohol, drugs. Review of Systems - Constitutional Constitutional: absent: Chills, Fever - EENT Eyes: absent: Change in Vision Ears: absent: Decreased Hearing Nose/Mouth/Throat: absent: Nasal Congestion - Cardiovascular Cardiovascular: absent: Chest Pain - Respiratory Respiratory: absent: Dyspnea - Gastrointestinal Gastrointestinal: absent: Abdominal Pain, Nausea, Vomiting - Genitourinary Genitourinary: absent: Dysuria - Musculoskeletal Musculoskeletal: Other (leg pain) - Integumentary Integumentary: absent: Rash - Neurological Neurological: absent: Dizziness - Psychiatric Psychiatric: absent: Anxiety - Endocrine Endocrine: absent: Palpitations Past Patient History - Past Medical History & Family History Past Medical History?: Yes - Past Social History Smoking Status: Never Smoked - CARDIAC Hx Hypertension: Yes Hx Peripheral Edema: Yes - PULMONARY Hx Chronic Obstructive Pulmonary Disease (COPD): Yes (WORK RELATED ENVIRONMENT EXPOSURE) - NEUROLOGICAL Hx Transient Ischemic Attacks (TIA): Yes - HEENT Hx HEENT Problems: Yes Hx Cataracts: Yes (MARICARMEN.) - RENAL Hx Chronic Kidney Disease: No - ENDOCRINE/METABOLIC Hx Endocrine Disorders: No - HEMATOLOGICAL/ONCOLOGICAL Hx Blood Disorders: No - INTEGUMENTARY Hx Dermatological Problems: Yes (SURGICAL HARRY RIGHT LEG ) - MUSCULOSKELETAL/RHEUMATOLOGICAL Hx Arthritis: Yes Hx Fractures: Yes Hx Osteoporosis: Yes - GASTROINTESTINAL Hx Gall Bladder Disease: Yes - GENITOURINARY/GYNECOLOGICAL Hx Genitourinary Disorders: No - PSYCHIATRIC Hx Substance Use: No - SURGICAL HISTORY Hx Cholecystectomy: Yes - ANESTHESIA Hx Anesthesia: Yes Hx Anesthesia Reactions: No Hx Malignant Hyperthermia: No Meds Allergies/Adverse Reactions: Allergies Allergy/AdvReac Type Severity Reaction Status Date / Time No Known Allergies Allergy Verified 10/06/17 14:32 - Medications Medications: Current Medications Albuterol (Ventolin Hfa 90 Mcg/Actuation (8 G)) 2 puff IH RBID [facility] Last Admin: 12/24/17 07:05 Dose: 2 puff Aspirin (Ecotrin) 81 mg PO DAILY [facility] Last Admin: 12/23/17 09:20 Dose: 81 mg Clopidogrel Bisulfate (Plavix) 75 mg PO DAILY [facility] Last Admin: 12/23/17 09:19 Dose: 75 mg Docusate Sodium (Colace) 100 mg PO TID [facility] Last Admin: 12/24/17 14:51 Dose: Not Given Enalapril Maleate (Vasotec) 20 mg PO DAILY [facility] Last Admin: 12/24/17 10:28 Dose: Not Given Heparin Sodium (Porcine) (Heparin) 5,000 units SC Q8 [facility] Last Admin: 12/23/17 21:06 Dose: Not Given Ciprofloxacin (Cipro 400mg/200ml Dsw) 400 mg in 200 mls @ 133 mls/hr IVPB Q12H [facility] PRN Reason: Protocol Last Admin: 12/24/17 13:36 Dose: Not Given Dextrose/Sodium Chloride (Dextrose 5%/0.45% Ns 1000 Ml) 1,000 mls @ 100 mls/hr IV .Q10H [facility] Multivitamins (Hexavitamin) 1 tab PO DAILY [facility] Last Admin: 12/24/17 10:27 Dose: Not Given Niacin (Niacin) 250 mg PO HS [facility] Last Admin: 12/23/17 21:01 Dose: 250 mg Mzzwh-1-Kltp Ethyl Esters (Lovaza) 1 gm PO DAILY [facility] Last Admin: 12/24/17 10:28 Dose: Not Given Oxycodone HCl (Oxycontin Extended Release Tab) 30 mg PO Q12 [facility] Last Admin: 12/24/17 10:28 Dose: Not Given Oxycodone/Acetaminophen (Percocet 5/325 Mg Tab) 1 tab PO Q4H PRN PRN Reason: Pain, moderate (4-7) Stop: 12/24/17 16:51 Last Admin: 12/24/17 15:27 Dose: 1 tab Oxycodone/Acetaminophen (Percocet 5/325 Mg Tab) 2 tab PO Q4H PRN PRN Reason: Pain, severe (8-10) Stop: 12/24/17 16:52 Last Admin: 12/23/17 23:53 Dose: 2 tab Pregabalin (Lyrica) 75 mg PO DAILY [facility] Last Admin: 12/24/17 10:28 Dose: Not Given Saccharomyces Boulardii (Florastor) 250 mg PO BID [facility] Last Admin: 12/24/17 10:27 Dose: Not Given Physical Exam - Constitutional Appears: No Acute Distress - Head Exam Head Exam: ATRAUMATIC, NORMOCEPHALIC - Eye Exam Eye Exam: EOMI, Normal appearance - ENT Exam ENT Exam: Mucous Membranes Moist - Respiratory Exam Respiratory Exam: Clear to Auscultation Bilateral. absent: Rales, Rhonchi, Wheezes - Cardiovascular Exam Cardiovascular Exam: Tachycardia, +S1, +S2 - GI/Abdominal Exam GI & Abdominal Exam: Normal Bowel Sounds, Soft. absent: Tenderness - Extremities Exam Additional comments: Pedal pulses palpable with doppler - Neurological Exam Neurological exam: Alert, Oriented x3 - Psychiatric Exam Psychiatric exam: Anxious - Skin Skin Exam: Dry Additional comments: Dressing on right foot Results - Vital Signs Recent Vital Signs: Last Vital Signs Temp 98.5 F 12/24/17 07:39 Pulse 93 H 12/24/17 07:39 Resp 20 12/24/17 07:39 BP 102/62 12/24/17 07:39 Pulse Ox 98 12/24/17 07:39 - Labs Result Diagrams: 12/24/17 07:20 12/24/17 07:20 Labs: Laboratory Results - last 24 hr 12/24/17 12/24/17 12/24/17 07:20 07:20 07:20 WBC 12.6 H RBC 2.86 L Hgb 9.0 L Hct 26.5 L MCV 92.8 MCH 31.5 H MCHC 34.0 RDW 14.9 H Plt Count 269 MPV 9.0 Neut % (Auto) 73.6 Lymph % (Auto) 14.8 L Fannin % (Auto) 8.9 Eos % (Auto) 2.3 Baso % (Auto) 0.4 Neut # (Auto) 9.2 H Lymph # (Auto) 1.9 Fannin # (Auto) 1.1 H Eos # (Auto) 0.3 Baso # (Auto) 0.1 PT INR APTT Sodium 139 Potassium 4.0 Chloride 102 Carbon Dioxide 26 Anion Gap 15 BUN 24 H Creatinine 0.7 Est GFR ( Amer) > 60 Est GFR (Non-Af Amer) > 60 Random Glucose 127 H Calcium 8.5 L Phosphorus 4.1 Magnesium 2.2 Total Bilirubin 0.4 AST 44 H ALT 16 Alkaline Phosphatase 70 Total Protein 6.2 L Albumin 3.1 L Globulin 3.1 Albumin/Globulin Ratio 1.0 Blood Type O POSITIVE Antibody Screen Negative 12/24/17 12/24/17 07:20 14:15 WBC RBC Hgb Hct MCV MCH MCHC RDW Plt Count MPV Neut % (Auto) Lymph % (Auto) Fannin % (Auto) Eos % (Auto) Baso % (Auto) Neut # (Auto) Lymph # (Auto) Fannin # (Auto) Eos # (Auto) Baso # (Auto) PT 13.3 H INR 1.2 APTT 33 Sodium Potassium Chloride Carbon Dioxide Anion Gap BUN Creatinine Est GFR ( Amer) Est GFR (Non-Af Amer) Random Glucose Calcium Phosphorus Magnesium Total Bilirubin AST ALT Alkaline Phosphatase Total Protein Albumin Globulin Albumin/Globulin Ratio Blood Type O POSITIVE Antibody Screen Negative Assessment & Plan - Assessment and Plan (Free Text) Assessment: This is an 82 year old female with PMHx PVD, HTN, arthritis, Raynaud's phenomenon. 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 Patient underwent selective catheterization of the right femoral artery with angiojet thrombolysis of the occluded bypass. Patient also had balloon angioplasty of proximal anastomosis and posterior tibial artery. Neuro Awake, alert Cardio No active issues Pulm Saturates well on room air Home Ventolin Inhaler BID GI Heart Healthy Diet Endocrine No active issues Renal NS 100 cc/hr to minimize contrast induced nephropathy Infectious Disease Assessment: Right leg wound Switched from Cipro to Avelox 400 mg PO daily for better coverage Vascular Assessment: Femoral bypass occlusion Aspirin 81 mg PO daily Plavix 75 mg PO daily Lyrica 75 mg PO daily Prophylaxis No VTE ppx per surgery due to risk of bleeding, but may resume ASA and Plavix Discussed with Dr. Kelli Moody
[2017-12-24] MEDS: Sodium Chloride 0.9% 1,000 ML IV SCH (17:00)
[2017-12-25] MEDS: Sodium Chloride 0.9% 1,000 ML IV SCH ×3 (02:38→23:05)
[2017-12-25 05:57] LABS: BASO % 0.2 % (0.0-2.0); HEMOGLOBIN 8.4 g/dL (11.0-16.0); LYMPH # 1.2 K/uL (1.0-4.3); LYMPH % 7.6 % (20.0-40.0); MEAN CORPUSCULAR HGB CONC 33.4 g/dL (33.0-37.0); MEAN PLATELET VOLUME 8.7 fL (7.2-11.7); MONO # 1.4 K/uL (0.0-0.8); MONO % 9.3 % (0.0-10.0); NEUT # 12.6 K/uL (1.8-7.0); NEUT % 82.9 % (50.0-75.0); PLATELET COUNT 215 K/uL (130-400); WHITE BLOOD COUNT 15.2 K/uL (4.8-10.8)
[2017-12-25 06:24] LABS: ALBUMIN 2.8 g/dL (3.5-5.0); ALT/SGPT 22 U/L (9-52); AST/SGOT 50 U/L (14-36); BLOOD UREA NITROGEN 11 mg/dL (7-17); GFR AFRICAN-AMERICAN > 60; GFR NON-AFRICAN AMERICAN > 60
[2017-12-25] MEDS ORDERED: Potassium Chloride 20 mEq ER Tab PO ONE (06:38)
--- NOTE | 2017-12-25 07:09 | VAS ---
DATE OF PROCEDURE: 12/24/2017. PREOPERATIVE DIAGNOSES: Gangrene, ischemic ulceration, rest pain right foot, failed peripheral vascular intervention and failed bypass on the way to the posterior tibial artery. SURGEON: Erasmo Mallory Jr., MD OPERATIVE FINDINGS: The aorta renal arteries, iliac arteries, internal iliac, external iliac, common femoral arteries were free of any significant occlusive disease. The proximal portion of the superficial femoral artery on the left side was widely patent. Distal pictures were not taken because of the body habitus and the constrain on the right leg. The right leg showed that the popliteal artery was open to the knee joint although this could be an occluded interventions and injections via the popliteal artery, there was no visualization of any tibial vessels. Subsequently we then cannulated the origin of the vein bypass in the leg, we were able to go through this and pass all the way down to the foot. We then went through the AngioJet device and thrombectomized this quite well but there was some residual stenosis proximally and distally both of which were dilated but the flow was also not brisk. After dilating the proximal area with a 6 mm balloon, there was rupture, 7 mm VBX stent. This sealed off the bleeding after it was reinflated. There was flow down to the ankle, but there was not brisk flow and there was very little room for the blood to go into the residual posterior tibial at the ankle. Thus the ultimate prognosis is quite guarded here. Blood loss to the procedure externally was 50 to 100 mL but there was blood loss into the rupture of the vein graft. Operation carried out, aortofemoral angiogram via the left groin with selective catheterization of right femoral artery, AngioJet thrombolysis of an occluded vein bypass in the leg, subsequent balloon angioplasty of the distal superficial femoral (proximal anastomosis) and posterior tibial using respectively 4, 5, and 6 and also a 2.5 mm balloon distally. At this point, we saw that there was rupture of the vessel, we deployed a 6 mm Viabahn stent and then subsequently a 7 mm VBX stent proximally, which eventually sealed off the bleeding point and also preserved flow into the popliteal. The procedure was then terminated. Prognosis is quite guarded and all are aware. Erasmo Mallory Jr., MD [facility] # [id number]
[2017-12-25 07:48] LABS: ANISOCYTOSIS SLIGHT; BANDS 2 % (0-2); LYMPHOCYTE 8 % (20-40); MONOCYTE 11 % (0-10); NEUTROPHIL 79 % (50-75); PLATELET ESTIMATE NORMAL (NORMAL); TOTAL CELLS COUNTED 100
[2017-12-25] MEDS: Albuterol HFA 90 mcg/actuation (8 g) IH SCH ×2 (07:57→20:07)
[2017-12-25] MEDS ORDERED: Potassium Chloride 20 mEq/15 ml LIQ UD PO ONE (08:00)
--- NOTE | 2017-12-25 08:38 | CP.PCM.PN ---
Subjective - Date & Time of Evaluation Date of Evaluation: 12/25/17 Time of Evaluation: 07:00 - Subjective Subjective: Pt seen and examined at bedside this AM. patient has some pain but it is currently controlled. Objective - Vital Signs/Intake and Output Vital Signs (last 24 hours): Temp Pulse Resp BP Pulse Ox 98.7 F 97 H 15 129/54 L 99 12/25/17 04:00 12/25/17 07:00 12/25/17 07:00 12/25/17 06:10 12/25/17 07:00 Intake and Output: 12/25/17 12/25/17 06:59 18:59 Intake Total 1650 100 Output Total 850 0 Balance 800 100 - Medications Medications: Current Medications Acetaminophen (Tylenol 325mg Tab) 650 mg PO Q6 PRN PRN Reason: temperature 100.4F and above Last Admin: 12/25/17 00:57 Dose: 650 mg Albuterol (Ventolin Hfa 90 Mcg/Actuation (8 G)) 2 puff IH RBID [facility] Last Admin: 12/25/17 07:57 Dose: 2 puff Aspirin (Ecotrin) 81 mg PO DAILY [facility] Last Admin: 12/23/17 09:20 Dose: 81 mg Clopidogrel Bisulfate (Plavix) 75 mg PO DAILY [facility] Last Admin: 12/23/17 09:19 Dose: 75 mg Docusate Sodium (Colace) 100 mg PO TID [facility] Last Admin: 12/24/17 20:13 Dose: 100 mg Enalapril Maleate (Vasotec) 20 mg PO DAILY [facility] Last Admin: 12/24/17 10:28 Dose: Not Given Heparin Sodium (Porcine) (Heparin) 5,000 units SC Q8 [facility] Last Admin: 12/23/17 21:06 Dose: Not Given Sodium Chloride (Sodium Chloride 0.9%) 1,000 mls @ 100 mls/hr IV .Q10H [facility] Last Admin: 12/25/17 02:38 Dose: 100 mls/hr Moxifloxacin HCl (Avelox) 400 mg PO Q24H [facility] PRN Reason: Protocol Last Admin: 12/24/17 17:39 Dose: 400 mg Multivitamins (Hexavitamin) 1 tab PO DAILY [facility] Last Admin: 12/24/17 10:27 Dose: Not Given Niacin (Niacin) 250 mg PO HS [facility] Last Admin: 12/24/17 22:02 Dose: 250 mg Auqdq-6-Nzhp Ethyl Esters (Lovaza) 1 gm PO DAILY [facility] Last Admin: 12/24/17 10:28 Dose: Not Given Oxycodone HCl (Oxycontin Extended Release Tab) 30 mg PO Q12 [facility] Last Admin: 12/24/17 22:00 Dose: 30 mg Pregabalin (Lyrica) 75 mg PO DAILY [facility] Last Admin: 12/24/17 10:28 Dose: Not Given Saccharomyces Boulardii (Florastor) 250 mg PO BID [facility] Last Admin: 12/24/17 20:13 Dose: 250 mg - Labs Labs: 12/25/17 05:48 12/25/17 05:49 PT 13.3 SECONDS (9.7-12.2) H 12/24/17 07:20 INR 1.2 12/24/17 07:20 APTT 33 SECONDS (21-34) 12/24/17 07:20 - Constitutional Appears: Well, Non-toxic, No Acute Distress - Head Exam Head Exam: ATRAUMATIC, NORMOCEPHALIC - Eye Exam Eye Exam: Normal appearance. absent: Conjunctival injection, Scleral icterus - ENT Exam ENT Exam: Mucous Membranes Moist, Normal Oropharynx - Respiratory Exam Respiratory Exam: NORMAL BREATHING PATTERN. absent: Accessory Muscle Use, Respiratory Distress - Cardiovascular Exam Cardiovascular Exam: RRR - GI/Abdominal Exam GI & Abdominal Exam: Soft. absent: Distended, Tenderness - Extremities Exam Additional comments: Patient with dressings around right foot intact with mild serous saturation, DP pulse with good signal on doppler - Neurological Exam Neurological Exam: Alert, Awake, Oriented x3 - Psychiatric Exam Psychiatric exam: Normal Affect, Normal Mood - Skin Skin Exam: Dry, Normal Color, Warm Assessment and Plan - Assessment and Plan (Free Text) Assessment: 37F with occluded bypass graft of the right leg POD#1 s/p angioplasty Plan: -Patient vascular supply re-established -Regular neurovascular checks -Continue antibiotics per ID -PRN pain medication -physical therapy Discussed with Dr. Mohamud Segura, PGY2
[2017-12-25] MEDS: oxyCODONE 10 mg ER Tab (oxyCONTIN) PO SCH ×2 (09:51→21:42)
[2017-12-25] MEDS: Saccharomyces Boulardi 250 mg Cap PO SCH ×2 (09:52→17:47)
[2017-12-25] MEDS: Multiple Vitamins Tab PO SCH (09:52)
[2017-12-25] MEDS ORDERED: Multiple Vitamins Oral Solution PO SCH (10:00)
[2017-12-25] MEDS: Omega-3-Acid Ethyl Esters 1 GM Cap PO SCH (10:18)
--- NOTE | 2017-12-25 11:41 | CP.CCUPN ---
<Len Aldana - Last Filed: 12/25/17 11:31> CCU Subjective - Physician Review Subjective (Free Text): 12/25/17 11:31 Patient seen and examined. Leg pain has improved since yesterday. No new complaints at this time. CCU Objective - Vital Signs / Intake & Output Vital Signs (Last 4 hours): Vital Signs Temp Pulse Resp BP Pulse Ox 12/25/17 11:07 94 H 16 125/43 L 100 12/25/17 11:05 103 H 15 127/43 L 12/25/17 10:02 103 H 12 131/48 L 97 12/25/17 09:00 92 H 16 98 12/25/17 08:10 95 H 19 116/55 L 95 12/25/17 08:00 98.1 F Intake and Output (Last 8hrs): Intake & Output 12/24/17 12/25/17 12/25/17 22:59 06:59 14:59 Intake Total 1050 1000 760 Output Total 1075 550 300 Balance -25 450 460 Weight 152 lb 12.485 oz Intake: Intake, IV Amount 800 800 400 Left Upper arm 800 800 400 Oral 250 200 360 Output: Urine 1075 550 300 Urine, Voided 1075 550 300 Other: # Bowel Movements 0 0 - Physical Exam Head: Positive for: Atraumatic, Normocephalic Pupils: Positive for: PERRL Extroacular Muscles: Positive for: EOMI Conjunctiva: Positive for: Normal Mouth: Positive for: Moist Mucous Membranes Respiratory/Chest: Positive for: Clear to Auscultation. Negative for: Wheezes, Rales, Rhonchi Cardiovascular: Positive for: Regular Rate and Rhythm, Normal S1, S2 Abdomen: Positive for: Normal Bowel Sounds. Negative for: Tenderness Upper Extremity: Negative for: Edema Lower Extremity: Positive for: Other (bandages intact) Neurological: Positive for: GCS=15 Skin: Positive for: Warm, Dry Psychiatric: Positive for: Alert, Oriented x 3 - Medications Active Medications: Active Medications Generic Name Dose Route Start Last Admin Trade Name Freq PRN Reason Stop Dose Admin Acetaminophen 650 mg 12/25/17 00:42 12/25/17 00:57 Tylenol 325mg Tab PO 650 mg Q6 PRN Administration temperature 100.4F and above Albuterol 2 puff 12/21/17 20:00 12/25/17 07:57 Ventolin Hfa 90 Mcg/Actuation (8 G) IH 2 puff RBID [facility] Administration Ascorbic Acid 1,000 mg 12/25/17 10:00 12/25/17 09:53 Vitamin C 500 Mg Tab PO 1,000 mg DAILY [facility] Administration Aspirin 81 mg 12/21/17 15:00 12/25/17 10:18 Ecotrin PO 81 mg DAILY [facility] Administration Clopidogrel Bisulfate 75 mg 12/21/17 15:00 12/23/17 09:19 Plavix PO 75 mg DAILY [facility] Administration Docusate Sodium 100 mg 12/23/17 14:00 12/25/17 09:53 Colace PO 100 mg TID [facility] Administration Enalapril Maleate 20 mg 12/21/17 15:00 12/24/17 10:28 Vasotec PO Not Given DAILY [facility] Heparin Sodium (Porcine) 5,000 units 12/21/17 22:00 12/23/17 21:06 Heparin SC Not Given Q8 [facility] Sodium Chloride 1,000 mls @ 100 mls/hr 12/24/17 16:15 12/25/17 02:38 Sodium Chloride 0.9% IV 100 mls/hr .Q10H [facility] Administration Moxifloxacin HCl 400 mg 12/24/17 17:00 12/24/17 17:39 Avelox PO 400 mg Q24H [facility] Administration Protocol Multivitamins 1 tab 12/21/17 15:00 12/25/17 09:52 Hexavitamin PO 1 tab DAILY [facility] Administration Niacin 250 mg 12/22/17 22:00 12/24/17 22:02 Niacin PO 250 mg HS [facility] Administration Tzgmm-4-Hyiy Ethyl Esters 1 gm 12/22/17 10:00 12/25/17 10:18 Lovaza PO 1 gm DAILY [facility] Administration Oxycodone HCl 30 mg 12/23/17 11:19 12/25/17 09:51 Oxycontin Extended Release Tab PO 30 mg Q12 [facility] Administration Pregabalin 75 mg 12/22/17 10:00 12/25/17 09:53 Lyrica PO 75 mg DAILY [facility] Administration Saccharomyces Boulardii 250 mg 12/23/17 11:30 12/25/17 09:52 Florastor PO 250 mg BID [facility] Administration Zinc Sulfate 220 mg 12/25/17 10:00 12/25/17 09:53 Zinc Sulfate 220 Mg Cap PO 220 mg DAILY [facility] Administration - Patient Studies Lab Studies: Microbiology Studies 12/21/17 11:00 Blood Culture - Preliminary Blood-Venous NO GROWTH AFTER 3 DAYS 12/21/17 10:19 Blood Culture - Preliminary Blood-Venous NO GROWTH AFTER 3 DAYS Lab Studies 12/25/17 12/25/17 12/24/17 Range/Units 05:49 05:48 14:15 WBC 15.2 H (4.8-10.8) K/uL RBC 2.70 L (3.80-5.20) Mil/uL Hgb 8.4 L (11.0-16.0) g/dL Hct 25.1 L (34.0-47.0) % MCV 93.0 (81.0-99.0) fL MCH 31.0 (27.0-31.0) pg MCHC 33.4 (33.0-37.0) g/dL RDW 15.0 H (11.5-14.5) % Plt Count 215 (130-400) K/uL MPV 8.7 (7.2-11.7) fL Neut % (Auto) 82.9 H (50.0-75.0) % Lymph % (Auto) 7.6 L (20.0-40.0) % [place] % (Auto) 9.3 (0.0-10.0) % Eos % (Auto) 0.0 (0.0-4.0) % Baso % (Auto) 0.2 (0.0-2.0) % Neut # (Auto) 12.6 H (1.8-7.0) K/uL Lymph # (Auto) 1.2 (1.0-4.3) K/uL [place] # (Auto) 1.4 H (0.0-0.8) K/uL Eos # (Auto) 0.0 (0.0-0.7) K/uL Baso # (Auto) 0.0 (0.0-0.2) K/uL Neutrophils % (Manual) 79 H (50-75) % Band Neutrophils % 2 (0-2) % Lymphocytes % (Manual) 8 L (20-40) % Monocytes % (Manual) 11 H (0-10) % Platelet Estimate Normal (NORMAL) Anisocytosis (manual) Slight Sodium 140 (132-148) mmol/L Potassium 3.3 L (3.6-5.2) mmol/L Chloride 106 (98-107) mmol/L Carbon Dioxide 24 (22-30) mmol/L Anion Gap 13 (10-20) BUN 11 (7-17) mg/dL Creatinine 0.5 L (0.7-1.2) mg/dL Est GFR ( Amer) > 60 Est GFR (Non-Af Amer) > 60 Random Glucose 116 H (65-105) mg/dL Calcium 8.0 L (8.6-10.4) mg/dl Phosphorus 2.9 (2.5-4.5) mg/dL Magnesium 2.0 (1.6-2.3) mg/dL Total Bilirubin 0.3 (0.2-1.3) mg/dL AST 50 H (14-36) U/L ALT 22 (9-52) U/L Alkaline Phosphatase 64 (38-126) U/L Total Protein 5.5 L (6.3-8.3) g/dL Albumin 2.8 L (3.5-5.0) g/dL Globulin 2.8 (2.2-3.9) gm/dL Albumin/Globulin Ratio 1.0 (1.0-2.1) Blood Type O POSITIVE Antibody Screen Negative Laboratory Results - last 24 hr 12/24/17 12/25/17 12/25/17 14:15 05:48 05:49 WBC 15.2 H RBC 2.70 L Hgb 8.4 L Hct 25.1 L MCV 93.0 MCH 31.0 MCHC 33.4 RDW 15.0 H Plt Count 215 MPV 8.7 Neut % (Auto) 82.9 H Lymph % (Auto) 7.6 L [place] % (Auto) 9.3 Eos % (Auto) 0.0 Baso % (Auto) 0.2 Neut # (Auto) 12.6 H Lymph # (Auto) 1.2 [place] # (Auto) 1.4 H Eos # (Auto) 0.0 Baso # (Auto) 0.0 Neutrophils % (Manual) 79 H Band Neutrophils % 2 Lymphocytes % (Manual) 8 L Monocytes % (Manual) 11 H Platelet Estimate Normal Anisocytosis (manual) Slight Sodium 140 Potassium 3.3 L Chloride 106 Carbon Dioxide 24 Anion Gap 13 BUN 11 Creatinine 0.5 L Est GFR ( Amer) > 60 Est GFR (Non-Af Amer) > 60 Random Glucose 116 H Calcium 8.0 L Phosphorus 2.9 Magnesium 2.0 Total Bilirubin 0.3 AST 50 H ALT 22 Alkaline Phosphatase 64 Total Protein 5.5 L Albumin 2.8 L Globulin 2.8 Albumin/Globulin Ratio 1.0 Blood Type O POSITIVE Antibody Screen Negative EKG/Cardiology Studies: Cardiology / EKG Studies 12/24/17 12:15 EKG [ELECTROCARDIOGRAM] Stat Comment: Mode Of Transportation: STRETCHER Reason For Exam: preprocedure Critical Care Progress Note - Nutrition Nutrition: Nutrition Category Date Time Status Heart Healthy Diet [DIET] Diets 12/24/17 Lunch Active Assessment/Plan - Assessment and Plan (Free Text) Assessment: This is an 82 year old female with PMHx PVD, HTN, arthritis, Raynaud's phenomenon. 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 Patient underwent selective catheterization of the right femoral artery with angiojet thrombolysis of the occluded bypass. Patient also had balloon angioplasty of proximal anastomosis and posterior tibial artery. Patient is stable for downgrade. Neuro Awake, alert Cardio No active issues Pulm Saturates well on room air Home Ventolin Inhaler BID GI Heart Healthy Diet Endocrine No active issues Renal NS 100 cc/hr to minimize contrast induced nephropathy Infectious Disease Assessment: Right leg wound Switched from Cipro to Avelox 400 mg PO daily for better coverage Vascular Assessment: Femoral bypass occlusion Aspirin 81 mg PO daily Plavix 75 mg PO daily Lyrica 75 mg PO daily Prophylaxis No VTE ppx per surgery due to risk of bleeding, but may resume ASA and Plavix Disposition: Stable for downgrade to med-surg. Discussed with Dr. Kelli Moody <Charlie Moody - Last Filed: 12/25/17 13:03> CCU Objective - Vital Signs / Intake & Output Vital Signs (Last 4 hours): Vital Signs Temp Pulse Resp BP Pulse Ox 12/25/17 12:10 80 18 104/43 L 100 12/25/17 12:05 80 17 95/41 L 100 12/25/17 12:00 98.6 F 81 19 100 12/25/17 11:07 94 H 16 125/43 L 100 12/25/17 11:05 103 H 15 127/43 L 12/25/17 10:02 103 H 12 131/48 L 97 Intake and Output (Last 8hrs): Intake & Output 12/24/17 12/25/17 12/25/17 22:59 06:59 14:59 Intake Total 1050 1000 1200 Output Total 1075 550 300 Balance -25 450 900 Weight 152 lb 12.485 oz Intake: Intake, IV Amount 800 800 600 Left Upper arm 800 800 600 Oral 250 200 600 Output: Urine 1075 550 300 Urine, Voided 1075 550 300 Other: # Bowel Movements 0 0 - Medications Active Medications: Active Medications Generic Name Dose Route Start Last Admin Trade Name Freq PRN Reason Stop Dose Admin Acetaminophen 650 mg 12/25/17 00:42 12/25/17 00:57 Tylenol 325mg Tab PO 650 mg Q6 PRN Administration temperature 100.4F and above Albuterol 2 puff 12/21/17 20:00 12/25/17 07:57 Ventolin Hfa 90 Mcg/Actuation (8 G) IH 2 puff RBID [facility] Administration Ascorbic Acid 1,000 mg 12/25/17 10:00 12/25/17 09:53 Vitamin C 500 Mg Tab PO 1,000 mg DAILY [facility] Administration Aspirin 81 mg 12/21/17 15:00 12/25/17 10:18 Ecotrin PO 81 mg DAILY [facility] Administration Clopidogrel Bisulfate 75 mg 12/21/17 15:00 12/23/17 09:19 Plavix PO 75 mg DAILY [facility] Administration Docusate Sodium 100 mg 12/23/17 14:00 12/25/17 09:53 Colace PO 100 mg TID [facility] Administration Enalapril Maleate 20 mg 12/21/17 15:00 12/25/17 11:07 Vasotec PO Not Given DAILY [facility] Heparin Sodium (Porcine) 5,000 units 12/21/17 22:00 12/23/17 21:06 Heparin SC Not Given Q8 [facility] Sodium Chloride 1,000 mls @ 100 mls/hr 12/24/17 16:15 12/25/17 12:02 Sodium Chloride 0.9% IV 100 mls/hr .Q10H [facility] Administration Moxifloxacin HCl 400 mg 12/24/17 17:00 12/24/17 17:39 Avelox PO 400 mg Q24H [facility] Administration Protocol Multivitamins 1 tab 12/21/17 15:00 12/25/17 09:52 Hexavitamin PO 1 tab DAILY [facility] Administration Niacin 250 mg 12/22/17 22:00 12/24/17 22:02 Niacin PO 250 mg HS [facility] Administration Rzkbi-4-Ebdm Ethyl Esters 1 gm 12/22/17 10:00 12/25/17 10:18 Lovaza PO 1 gm DAILY [facility] Administration Oxycodone HCl 30 mg 12/23/17 11:19 12/25/17 09:51 Oxycontin Extended Release Tab PO 30 mg Q12 [facility] Administration Pregabalin 75 mg 12/22/17 10:00 12/25/17 09:53 Lyrica PO 75 mg DAILY [facility] Administration Saccharomyces Boulardii 250 mg 12/23/17 11:30 12/25/17 09:52 Florastor PO 250 mg BID [facility] Administration Zinc Sulfate 220 mg 12/25/17 10:00 12/25/17 09:53 Zinc Sulfate 220 Mg Cap PO 220 mg DAILY [facility] Administration - Patient Studies Lab Studies: Microbiology Studies 12/21/17 10:19 Blood Culture - Preliminary Blood-Venous NO GROWTH AFTER 4 DAYS 12/21/17 11:00 Blood Culture - Preliminary Blood-Venous NO GROWTH AFTER 3 DAYS Lab Studies 12/25/17 12/25/17 12/24/17 Range/Units 05:49 05:48 14:15 WBC 15.2 H (4.8-10.8) K/uL RBC 2.70 L (3.80-5.20) Mil/uL Hgb 8.4 L (11.0-16.0) g/dL Hct 25.1 L (34.0-47.0) % MCV 93.0 (81.0-99.0) fL MCH 31.0 (27.0-31.0) pg MCHC 33.4 (33.0-37.0) g/dL RDW 15.0 H (11.5-14.5) % Plt Count 215 (130-400) K/uL MPV 8.7 (7.2-11.7) fL Neut % (Auto) 82.9 H (50.0-75.0) % Lymph % (Auto) 7.6 L (20.0-40.0) % [place] % (Auto) 9.3 (0.0-10.0) % Eos % (Auto) 0.0 (0.0-4.0) % Baso % (Auto) 0.2 (0.0-2.0) % Neut # (Auto) 12.6 H (1.8-7.0) K/uL Lymph # (Auto) 1.2 (1.0-4.3) K/uL [place] # (Auto) 1.4 H (0.0-0.8) K/uL Eos # (Auto) 0.0 (0.0-0.7) K/uL Baso # (Auto) 0.0 (0.0-0.2) K/uL Neutrophils % (Manual) 79 H (50-75) % Band Neutrophils % 2 (0-2) % Lymphocytes % (Manual) 8 L (20-40) % Monocytes % (Manual) 11 H (0-10) % Platelet Estimate Normal (NORMAL) Anisocytosis (manual) Slight Sodium 140 (132-148) mmol/L Potassium 3.3 L (3.6-5.2) mmol/L Chloride 106 (98-107) mmol/L Carbon Dioxide 24 (22-30) mmol/L Anion Gap 13 (10-20) BUN 11 (7-17) mg/dL Creatinine 0.5 L (0.7-1.2) mg/dL Est GFR ( Amer) > 60 Est GFR (Non-Af Amer) > 60 Random Glucose 116 H (65-105) mg/dL Calcium 8.0 L (8.6-10.4) mg/dl Phosphorus 2.9 (2.5-4.5) mg/dL Magnesium 2.0 (1.6-2.3) mg/dL Total Bilirubin 0.3 (0.2-1.3) mg/dL AST 50 H (14-36) U/L ALT 22 (9-52) U/L Alkaline Phosphatase 64 (38-126) U/L Total Protein 5.5 L (6.3-8.3) g/dL Albumin 2.8 L (3.5-5.0) g/dL Globulin 2.8 (2.2-3.9) gm/dL Albumin/Globulin Ratio 1.0 (1.0-2.1) Blood Type O POSITIVE Antibody Screen Negative Laboratory Results - last 24 hr 12/24/17 12/25/17 12/25/17 14:15 05:48 05:49 WBC 15.2 H RBC 2.70 L Hgb 8.4 L Hct 25.1 L MCV 93.0 MCH 31.0 MCHC 33.4 RDW 15.0 H Plt Count 215 MPV 8.7 Neut % (Auto) 82.9 H Lymph % (Auto) 7.6 L [place] % (Auto) 9.3 Eos % (Auto) 0.0 Baso % (Auto) 0.2 Neut # (Auto) 12.6 H Lymph # (Auto) 1.2 [place] # (Auto) 1.4 H Eos # (Auto) 0.0 Baso # (Auto) 0.0 Neutrophils % (Manual) 79 H Band Neutrophils % 2 Lymphocytes % (Manual) 8 L Monocytes % (Manual) 11 H Platelet Estimate Normal Anisocytosis (manual) Slight Sodium 140 Potassium 3.3 L Chloride 106 Carbon Dioxide 24 Anion Gap 13 BUN 11 Creatinine 0.5 L Est GFR ( Amer) > 60 Est GFR (Non-Af Amer) > 60 Random Glucose 116 H Calcium 8.0 L Phosphorus 2.9 Magnesium 2.0 Total Bilirubin 0.3 AST 50 H ALT 22 Alkaline Phosphatase 64 Total Protein 5.5 L Albumin 2.8 L Globulin 2.8 Albumin/Globulin Ratio 1.0 Blood Type O POSITIVE Antibody Screen Negative EKG/Cardiology Studies: Cardiology / EKG Studies 12/24/17 12:15 EKG [ELECTROCARDIOGRAM] Stat Comment: Mode Of Transportation: STRETCHER Reason For Exam: preprocedure Critical Care Progress Note - Nutrition Nutrition: Nutrition Category Date Time Status Heart Healthy Diet [DIET] Diets 12/24/17 Lunch Active Assessment/Plan - Assessment and Plan (Free Text) Plan: Above resident note reviewed and verified. Patient post op. -doing well -restart patient's home medications -Patient remains hemodynamically stable - Date & Time Date: 12/25/17 Time: 13:03
--- NOTE | 2017-12-25 17:45 | CP.PCM.PN ---
Subjective - Date & Time of Evaluation Date of Evaluation: 12/25/17 Time of Evaluation: 17:44 - Subjective Subjective: right lower ext pain under control with meds improved after intervention yesterday by vascular Objective - Vital Signs/Intake and Output Vital Signs (last 24 hours): Temp Pulse Resp BP Pulse Ox 98.6 F 91 H 20 118/70 95 12/25/17 15:00 12/25/17 15:00 12/25/17 15:00 12/25/17 15:00 12/25/17 15:00 Intake and Output: 12/25/17 12/25/17 06:59 18:59 Intake Total 1650 1600 Output Total 850 300 Balance 800 1300 - Medications Medications: Current Medications Acetaminophen (Tylenol 325mg Tab) 650 mg PO Q6 PRN PRN Reason: temperature 100.4F and above Last Admin: 12/25/17 00:57 Dose: 650 mg Albuterol (Ventolin Hfa 90 Mcg/Actuation (8 G)) 2 puff IH RBID [facility] Last Admin: 12/25/17 07:57 Dose: 2 puff Ascorbic Acid (Vitamin C 500 Mg Tab) 1,000 mg PO DAILY [facility] Last Admin: 12/25/17 09:53 Dose: 1,000 mg Aspirin (Ecotrin) 81 mg PO DAILY [facility] Last Admin: 12/25/17 10:18 Dose: 81 mg Clopidogrel Bisulfate (Plavix) 75 mg PO DAILY [facility] Last Admin: 12/23/17 09:19 Dose: 75 mg Docusate Sodium (Colace) 100 mg PO TID [facility] Last Admin: 12/25/17 14:45 Dose: 100 mg Enalapril Maleate (Vasotec) 20 mg PO DAILY [facility] Last Admin: 12/25/17 11:07 Dose: Not Given Heparin Sodium (Porcine) (Heparin) 5,000 units SC Q8 [facility] Last Admin: 12/23/17 21:06 Dose: Not Given Sodium Chloride (Sodium Chloride 0.9%) 1,000 mls @ 100 mls/hr IV .Q10H [facility] Last Admin: 12/25/17 12:02 Dose: 100 mls/hr Moxifloxacin HCl (Avelox) 400 mg PO Q24H [facility] PRN Reason: Protocol Last Admin: 12/25/17 17:02 Dose: 400 mg Multivitamins (Hexavitamin) 1 tab PO DAILY [facility] Last Admin: 12/25/17 09:52 Dose: 1 tab Niacin (Niacin) 250 mg PO HS [facility] Last Admin: 12/24/17 22:02 Dose: 250 mg Xncfc-9-Kxde Ethyl Esters (Lovaza) 1 gm PO DAILY [facility] Last Admin: 12/25/17 10:18 Dose: 1 gm Oxycodone HCl (Oxycontin Extended Release Tab) 30 mg PO Q12 [facility] Last Admin: 12/25/17 09:51 Dose: 30 mg Pregabalin (Lyrica) 75 mg PO DAILY [facility] Last Admin: 12/25/17 09:53 Dose: 75 mg Saccharomyces Boulardii (Florastor) 250 mg PO BID [facility] Last Admin: 12/25/17 09:52 Dose: 250 mg Zinc Sulfate (Zinc Sulfate 220 Mg Cap) 220 mg PO DAILY [facility] Last Admin: 12/25/17 09:53 Dose: 220 mg - Labs Labs: 12/25/17 05:48 12/25/17 05:49 PT 13.3 SECONDS (9.7-12.2) H 12/24/17 07:20 INR 1.2 12/24/17 07:20 APTT 33 SECONDS (21-34) 12/24/17 07:20 - Constitutional Appears: Well, No Acute Distress, Older Than Stated Age, Chronically Ill - Head Exam Head Exam: ATRAUMATIC - ENT Exam ENT Exam: Mucous Membranes Moist - Respiratory Exam Respiratory Exam: Clear to Ausculation Bilateral, NORMAL BREATHING PATTERN - Cardiovascular Exam Cardiovascular Exam: REGULAR RHYTHM, +S1, +S2 - GI/Abdominal Exam GI & Abdominal Exam: Soft, Normal Bowel Sounds. absent: Tenderness, Organomegaly - Extremities Exam Additional comments: cold ext right pain at right lower ext toe amputations - Neurological Exam Neurological Exam: Alert, Awake Assessment and Plan - Assessment and Plan (Free Text) Assessment: 82 year old female with PMHx PVD, HTN, arthritis, Raynaud's phenomenon. 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 Patient underwent selective catheterization of the right femoral artery with angiojet thrombolysis of the occluded bypass. Patient also had balloon angioplasty of proximal anastomosis and posterior tibial artery. now on floor.
--- NOTE | 2017-12-25 19:43 | CP.PCM.CON ---
History of Present Illness - History of Present Illness History of Present Illness: Podiatry Progress Note for Dr. Macais 82 year old female seen at bedside accompanied by her son for right hallux amputation wound. Pt is seated confortably. She has no pedal complaints a thtis time and she denies any acute overnight events. She currently denies any n/v/f/c /sob/cp. 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) - NEUROLOGICAL Hx Transient Ischemic Attacks (TIA): Yes - HEENT Hx HEENT Problems: Yes Hx Cataracts: Yes (MARICARMEN.) - RENAL Hx Chronic Kidney Disease: No - ENDOCRINE/METABOLIC Hx Endocrine Disorders: No - HEMATOLOGICAL/ONCOLOGICAL Hx Blood Disorders: No - INTEGUMENTARY Hx Dermatological Problems: Yes (SURGICAL HARRY RIGHT LEG ) - MUSCULOSKELETAL/RHEUMATOLOGICAL Hx Arthritis: Yes - GASTROINTESTINAL Hx Gall Bladder Disease: Yes - GENITOURINARY/GYNECOLOGICAL Hx Genitourinary Disorders: No - PSYCHIATRIC Hx Substance Use: No - SURGICAL HISTORY Hx Cholecystectomy: Yes - ANESTHESIA Hx Anesthesia: Yes Hx Anesthesia Reactions: No Hx Malignant Hyperthermia: No Meds Allergies/Adverse Reactions: Allergies Allergy/AdvReac Type Severity Reaction Status Date / Time No Known Allergies Allergy Verified 10/06/17 14:32 - Medications Medications: Current Medications Acetaminophen (Tylenol 325mg Tab) 650 mg PO Q6 PRN PRN Reason: temperature 100.4F and above Last Admin: 12/25/17 00:57 Dose: 650 mg Albuterol (Ventolin Hfa 90 Mcg/Actuation (8 G)) 2 puff IH RBID [facility] Last Admin: 12/25/17 07:57 Dose: 2 puff Ascorbic Acid (Vitamin C 500 Mg Tab) 1,000 mg PO DAILY [facility] Last Admin: 12/25/17 09:53 Dose: 1,000 mg Aspirin (Ecotrin) 81 mg PO DAILY [facility] Last Admin: 12/25/17 10:18 Dose: 81 mg Clopidogrel Bisulfate (Plavix) 75 mg PO DAILY [facility] Last Admin: 12/23/17 09:19 Dose: 75 mg Docusate Sodium (Colace) 100 mg PO TID [facility] Last Admin: 12/25/17 17:47 Dose: 100 mg Enalapril Maleate (Vasotec) 20 mg PO DAILY [facility] Last Admin: 12/25/17 11:07 Dose: Not Given Heparin Sodium (Porcine) (Heparin) 5,000 units SC Q8 [facility] Last Admin: 12/23/17 21:06 Dose: Not Given Sodium Chloride (Sodium Chloride 0.9%) 1,000 mls @ 100 mls/hr IV .Q10H [facility] Last Admin: 12/25/17 12:02 Dose: 100 mls/hr Moxifloxacin HCl (Avelox) 400 mg PO Q24H [facility] PRN Reason: Protocol Last Admin: 12/25/17 17:02 Dose: 400 mg Multivitamins (Hexavitamin) 1 tab PO DAILY [facility] Last Admin: 12/25/17 09:52 Dose: 1 tab Niacin (Niacin) 250 mg PO HS [facility] Last Admin: 12/24/17 22:02 Dose: 250 mg Wmaoq-3-Suju Ethyl Esters (Lovaza) 1 gm PO DAILY [facility] Last Admin: 12/25/17 10:18 Dose: 1 gm Oxycodone HCl (Oxycontin Extended Release Tab) 30 mg PO Q12 [facility] Last Admin: 12/25/17 09:51 Dose: 30 mg Pregabalin (Lyrica) 75 mg PO DAILY [facility] Last Admin: 12/25/17 09:53 Dose: 75 mg Saccharomyces Boulardii (Florastor) 250 mg PO BID [facility] Last Admin: 12/25/17 17:47 Dose: 250 mg Zinc Sulfate (Zinc Sulfate 220 Mg Cap) 220 mg PO DAILY [facility] Last Admin: 12/25/17 09:53 Dose: 220 mg Physical Exam - Constitutional Appears: Well, Non-toxic, No Acute Distress - Extremities Exam Additional comments: Right lower extremity focused. Dressing is clean, dry, and intact. Vasc: DP and PT pulses are palpable 1/4, Temperature runs warm to warm proximal to distal. localized edema noted to the remaining hallux. Cap refill time to remaining digits: < 3 sec, Derm: Partial thichness wound to hallux amputation site measuring 0.6 x 3.2 cm with fibro-necrotic base, margins stable, no gapping, tunneling or undermining noted. 2nd digit well healed, stable cicatrix noted. No active drainage nor mal -charles noted. Ortho: 1st and 2nd digit partial amputations noted. Mild tenderness to palpation along right heel. No evidence of deep tissue injury or pre-ulcerative pressure ulcerations. Pedal muscle strength is graded 4/5 in inversion and eversion of leg muscle groups,, graded 5/5 in dorsi-flexor and plantar-flexor leg muscle groups. Neuro: gross and protective sensation diminished - Neurological Exam Neurological exam: Alert, Oriented x3 - Psychiatric Exam Psychiatric exam: Normal Affect, Normal Mood Results - Vital Signs Recent Vital Signs: Last Vital Signs Temp 98.6 F 12/25/17 15:00 Pulse 91 H 12/25/17 15:00 Resp 20 12/25/17 15:00 BP 118/70 12/25/17 15:00 Pulse Ox 95 12/25/17 15:00 - Labs Result Diagrams: 12/25/17 05:48 12/25/17 05:49 Labs: Laboratory Results - last 24 hr 12/25/17 12/25/17 05:48 05:49 WBC 15.2 H RBC 2.70 L Hgb 8.4 L Hct 25.1 L MCV 93.0 MCH 31.0 MCHC 33.4 RDW 15.0 H Plt Count 215 MPV 8.7 Neut % (Auto) 82.9 H Lymph % (Auto) 7.6 L [place] % (Auto) 9.3 Eos % (Auto) 0.0 Baso % (Auto) 0.2 Neut # (Auto) 12.6 H Lymph # (Auto) 1.2 [place] # (Auto) 1.4 H Eos # (Auto) 0.0 Baso # (Auto) 0.0 Neutrophils % (Manual) 79 H Band Neutrophils % 2 Lymphocytes % (Manual) 8 L Monocytes % (Manual) 11 H Platelet Estimate Normal Anisocytosis (manual) Slight Sodium 140 Potassium 3.3 L Chloride 106 Carbon Dioxide 24 Anion Gap 13 BUN 11 Creatinine 0.5 L Est GFR ( Amer) > 60 Est GFR (Non-Af Amer) > 60 Random Glucose 116 H Calcium 8.0 L Phosphorus 2.9 Magnesium 2.0 Total Bilirubin 0.3 AST 50 H ALT 22 Alkaline Phosphatase 64 Total Protein 5.5 L Albumin 2.8 L Globulin 2.8 Albumin/Globulin Ratio 1.0 Assessment & Plan - Assessment and Plan (Free Text) Assessment: 82 year olf female with left hallux post-surgical wound secondary to PAD. Plan: Pt seen and evaluated. Discussed with Dr. Macias. Chart, labs, and vitals reviewed. Local wound care-Medihoney and DSD. No surgical podiatric intervention indicated a this time. Podiatry will continue to follow while inhouse. - Date & Time Date: 12/25/17 Time: 19:48
--- NOTE | 2017-12-25 22:02 | CARD ---
APPROVED REPORT EKG Measurement Heart [id number] NE 150P39 [id number] <Conclusion> Poor data quality, interpretation may be adversely affected Normal sinus rhythm Normal ECG
--- NOTE | 2017-12-26 08:09 | CP.PCM.PN ---
Subjective - Date & Time of Evaluation Date of Evaluation: 12/26/17 Time of Evaluation: 08:07 - Subjective Subjective: Vascular surgery progress note for Dr. Debbie Marin, PGY-1 Pt S & E at bedside. Pt reports continued LE pain overnight. Reports she has not had any BM since admission- usually takes Miralax and Colace at home. Would like to be put back on those medications. States she has some mild abdominal pain due to constipation. Denies other complaints. Objective - Vital Signs/Intake and Output Vital Signs (last 24 hours): Temp Pulse Resp BP Pulse Ox 98.7 F 98 H 18 95/57 L 95 12/26/17 07:30 12/26/17 07:30 12/26/17 07:30 12/26/17 07:30 12/26/17 01:00 Intake and Output: 12/26/17 12/26/17 06:59 18:59 Intake Total 1820 Balance 1820 - Medications Medications: Current Medications Acetaminophen (Tylenol 325mg Tab) 650 mg PO Q6 PRN PRN Reason: temperature 100.4F and above Last Admin: 12/25/17 00:57 Dose: 650 mg Albuterol (Ventolin Hfa 90 Mcg/Actuation (8 G)) 2 puff IH RBID [facility] Last Admin: 12/25/17 20:07 Dose: 2 puff Ascorbic Acid (Vitamin C 500 Mg Tab) 1,000 mg PO DAILY [facility] Last Admin: 12/25/17 09:53 Dose: 1,000 mg Aspirin (Ecotrin) 81 mg PO DAILY [facility] Last Admin: 12/25/17 10:18 Dose: 81 mg Clopidogrel Bisulfate (Plavix) 75 mg PO DAILY [facility] Last Admin: 12/23/17 09:19 Dose: 75 mg Docusate Sodium (Colace) 100 mg PO TID [facility] Last Admin: 12/25/17 17:47 Dose: 100 mg Enalapril Maleate (Vasotec) 20 mg PO DAILY [facility] Last Admin: 12/25/17 11:07 Dose: Not Given Heparin Sodium (Porcine) (Heparin) 5,000 units SC Q8 [facility] Last Admin: 12/23/17 21:06 Dose: Not Given Sodium Chloride (Sodium Chloride 0.9%) 1,000 mls @ 100 mls/hr IV .Q10H [facility] Last Admin: 12/25/17 23:05 Dose: 100 mls/hr Moxifloxacin HCl (Avelox) 400 mg PO Q24H [facility] PRN Reason: Protocol Last Admin: 12/25/17 17:02 Dose: 400 mg Multivitamins (Hexavitamin) 1 tab PO DAILY [facility] Last Admin: 12/25/17 09:52 Dose: 1 tab Niacin (Niacin) 250 mg PO HS [facility] Last Admin: 12/25/17 21:47 Dose: 250 mg Vuumh-7-Lqar Ethyl Esters (Lovaza) 1 gm PO DAILY [facility] Last Admin: 12/25/17 10:18 Dose: 1 gm Oxycodone HCl (Oxycontin Extended Release Tab) 30 mg PO Q12 [facility] Last Admin: 12/25/17 21:42 Dose: 30 mg Polyethylene Glycol (Miralax) 17 gm PO DAILY [facility] Pregabalin (Lyrica) 75 mg PO DAILY [facility] Last Admin: 12/25/17 09:53 Dose: 75 mg Saccharomyces Boulardii (Florastor) 250 mg PO BID [facility] Last Admin: 12/25/17 17:47 Dose: 250 mg Zinc Sulfate (Zinc Sulfate 220 Mg Cap) 220 mg PO DAILY [facility] Last Admin: 12/25/17 09:53 Dose: 220 mg - Labs Labs: 12/25/17 05:48 12/25/17 05:49 PT 13.3 SECONDS (9.7-12.2) H 12/24/17 07:20 INR 1.2 12/24/17 07:20 APTT 33 SECONDS (21-34) 12/24/17 07:20 - Constitutional Appears: Non-toxic, No Acute Distress - Head Exam Head Exam: ATRAUMATIC, NORMAL INSPECTION, NORMOCEPHALIC - Eye Exam Eye Exam: EOMI, Normal appearance - ENT Exam ENT Exam: Mucous Membranes Moist, Normal Exam - Neck Exam Neck Exam: Full ROM, Normal Inspection - Respiratory Exam Respiratory Exam: NORMAL BREATHING PATTERN - Cardiovascular Exam Cardiovascular Exam: REGULAR RHYTHM, +S1, +S2 - GI/Abdominal Exam GI & Abdominal Exam: Soft, Tenderness (Lower quadrants). absent: Distended, Firm, Guarding - Extremities Exam Extremities Exam: absent: Normal Inspection (Dressing in place over distal aspect of RLE- clean/dry/intact, large blister on dorsal lateral aspect of right foot, distal foot with dressing in place- some serous strike through) - Neurological Exam Neurological Exam: Alert, CN II-XII Intact, Oriented x3 - Psychiatric Exam Psychiatric exam: Normal Affect, Normal Mood - Skin Skin Exam: Dry, Normal Color, Warm Assessment and Plan - Assessment and Plan (Free Text) Assessment: 82F POD #2 s/p angioplasty w/stent Plan: PT OOBTC Pain control PRN Bowel regimen Cont NV checks Cont Abx as per ID Foot care as per podiatry RLE leg dressing to stay in place Will DRE attending Tania, PGY-1
[2017-12-26] MEDS: Albuterol HFA 90 mcg/actuation (8 g) IH SCH ×2 (08:34→19:11)
[2017-12-26] MEDS: Sodium Chloride 0.9% 1,000 ML IV SCH ×2 (09:00→17:54)
[2017-12-26] MEDS: oxyCODONE 10 mg ER Tab (oxyCONTIN) PO SCH ×2 (09:07→21:49)
[2017-12-26] MEDS: Multiple Vitamins Tab PO SCH (10:24)
[2017-12-26] MEDS: Omega-3-Acid Ethyl Esters 1 GM Cap PO SCH (10:25)
[2017-12-26] MEDS: Saccharomyces Boulardi 250 mg Cap PO SCH ×2 (10:26→17:53)
[2017-12-26] MEDS: POLYETHYLENE GLYCOL 3350 17 GM/Dose PACKET PO SCH (10:33)
--- NOTE | 2017-12-26 10:44 | CP.PCM.PN ---
Subjective - Date & Time of Evaluation Date of Evaluation: 12/26/17 Time of Evaluation: 10:44 - Subjective Subjective: PGY2 progress note for Dr. Barrow Pt seen and examined this am. Patient sitting comfortably in chair. Currently patient denies having any LE pain, numbness or tingling. Patient denies having any CP, SOB, abd pain, N/V/D/C, F/C. Overnight, pt developed a blister on right dorsal aspect of the foot. No drainage from the blister. Objective - Vital Signs/Intake and Output Vital Signs (last 24 hours): Temp Pulse Resp BP Pulse Ox 98.7 F 98 H 18 112/71 95 12/26/17 07:30 12/26/17 07:30 12/26/17 07:30 12/26/17 09:12 12/26/17 01:00 Intake and Output: 12/26/17 12/26/17 06:59 18:59 Intake Total 1820 Balance 1820 - Medications Medications: Current Medications Acetaminophen (Tylenol 325mg Tab) 650 mg PO Q6 PRN PRN Reason: temperature 100.4F and above Last Admin: 12/25/17 00:57 Dose: 650 mg Albuterol (Ventolin Hfa 90 Mcg/Actuation (8 G)) 2 puff IH RBID [facility] Last Admin: 12/26/17 08:34 Dose: 2 puff Ascorbic Acid (Vitamin C 500 Mg Tab) 1,000 mg PO DAILY [facility] Last Admin: 12/26/17 10:24 Dose: 1,000 mg Aspirin (Ecotrin) 81 mg PO DAILY [facility] Last Admin: 12/26/17 10:33 Dose: 81 mg Clopidogrel Bisulfate (Plavix) 75 mg PO DAILY [facility] Last Admin: 12/26/17 10:26 Dose: 75 mg Docusate Sodium (Colace) 100 mg PO TID [facility] Last Admin: 12/26/17 10:24 Dose: 100 mg Enalapril Maleate (Vasotec) 20 mg PO DAILY [facility] Last Admin: 12/25/17 11:07 Dose: Not Given Heparin Sodium (Porcine) (Heparin) 5,000 units SC Q8 [facility] Last Admin: 12/23/17 21:06 Dose: Not Given Sodium Chloride (Sodium Chloride 0.9%) 1,000 mls @ 100 mls/hr IV .Q10H [facility] Last Admin: 12/25/17 23:05 Dose: 100 mls/hr Moxifloxacin HCl (Avelox) 400 mg PO Q24H [facility] PRN Reason: Protocol Last Admin: 12/25/17 17:02 Dose: 400 mg Multivitamins (Hexavitamin) 1 tab PO DAILY [facility] Last Admin: 12/26/17 10:24 Dose: 1 tab Niacin (Niacin) 250 mg PO HS [facility] Last Admin: 12/25/17 21:47 Dose: 250 mg Snmde-5-Dzcz Ethyl Esters (Lovaza) 1 gm PO DAILY [facility] Last Admin: 12/26/17 10:25 Dose: 1 gm Oxycodone HCl (Oxycontin Extended Release Tab) 30 mg PO Q12 [facility] Last Admin: 12/26/17 09:07 Dose: 30 mg Polyethylene Glycol (Miralax) 17 gm PO DAILY [facility] Last Admin: 12/26/17 10:33 Dose: 17 gm Pregabalin (Lyrica) 75 mg PO DAILY [facility] Last Admin: 12/26/17 10:23 Dose: 75 mg Saccharomyces Boulardii (Florastor) 250 mg PO BID [facility] Last Admin: 12/26/17 10:26 Dose: 250 mg Zinc Sulfate (Zinc Sulfate 220 Mg Cap) 220 mg PO DAILY [facility] Last Admin: 12/26/17 10:25 Dose: 220 mg - Labs Labs: 12/25/17 05:48 12/25/17 05:49 PT 13.3 SECONDS (9.7-12.2) H 12/24/17 07:20 INR 1.2 12/24/17 07:20 APTT 33 SECONDS (21-34) 12/24/17 07:20 - Constitutional Appears: Non-toxic, No Acute Distress - Head Exam Head Exam: ATRAUMATIC - Eye Exam Eye Exam: EOMI - ENT Exam ENT Exam: Mucous Membranes Moist - Respiratory Exam Respiratory Exam: Clear to Ausculation Bilateral. absent: Accessory Muscle Use , Rales, Rhonchi, Wheezes, Respiratory Distress - Cardiovascular Exam Cardiovascular Exam: REGULAR RHYTHM, +S1, +S2. absent: Gallop, Rubs, Murmur - GI/Abdominal Exam GI & Abdominal Exam: Soft, Normal Bowel Sounds. absent: Distended, Firm, Guarding, Rigid, Tenderness, Organomegaly - Extremities Exam Extremities Exam: Tenderness (right lower extremity tenderness). absent: Pedal Edema - Neurological Exam Neurological Exam: Alert, Awake, Oriented x3 - Psychiatric Exam Psychiatric exam: Normal Affect, Normal Mood - Skin Skin Exam: Dry, Intact, Normal Color, Warm (2 inch blister on the dorsal aspect of right foot) Assessment and Plan - Assessment and Plan (Free Text) Assessment: This is an 82 year old female with PMHx PVD, HTN, arthritis, Raynaud's phenomenon. 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 Patient underwent selective catheterization of the right femoral artery with angiojet thrombolysis of the occluded bypass. Patient also had balloon angioplasty of proximal anastomosis and posterior tibial artery POD #2 PVD - S/P right femoral artery with angiojet thrombolysis of the occluded bypass. Patient also had balloon angioplasty of proximal anastomosis and posterior tibial artery POD #2 - Dr. Mallory is consulted - Tylenol prn fever - Oxycontin ER 30 mg po Q 12 [facility] - Lyrica 75 mg po qd - Continue Aspirin and plavix - Zinc sulfate COPD -Continue home ventolin inhaler HTN - Vasotec 20 mg po qd HLD - [place] 3, niacin - Lipid panel WNL - HGbAc1 5.4 Raynauds phenomenon - Continue to monitor Prophylaxis Heparin 5000 units SC q8 Colace, Miralax Discussed with Dr. Barrow
[2017-12-26 12:20] LABS: BASO # 0.1 K/uL (0.0-0.2); BASO % 0.4 % (0.0-2.0); EOS # 0.2 K/uL (0.0-0.7); EOS % 1.1 % (0.0-4.0); HEMOGLOBIN 8.2 g/dL (11.0-16.0); LYMPH # 1.9 K/uL (1.0-4.3); LYMPH % 13.6 % (20.0-40.0); MEAN CELL VOLUME 92.6 fL (81.0-99.0); MEAN CORPUSCULAR HEMOGLOBIN 31.2 pg (27.0-31.0); MEAN CORPUSCULAR HGB CONC 33.7 g/dL (33.0-37.0); MONO # 1.1 K/uL (0.0-0.8); MONO % 7.9 % (0.0-10.0); NEUT # 10.8 K/uL (1.8-7.0); RBC 2.63 Mil/uL (3.80-5.20); RED CELL DISTRIBUTION WIDTH 15.1 % (11.5-14.5); WHITE BLOOD COUNT 14.1 K/uL (4.8-10.8)
[2017-12-26 12:43] LABS: ALBUMIN 2.8 g/dL (3.5-5.0); ALT/SGPT 32 U/L (9-52); AST/SGOT 58 U/L (14-36); BLOOD UREA NITROGEN 20 mg/dL (7-17); CALCIUM 7.9 mg/dl (8.6-10.4); GFR AFRICAN-AMERICAN > 60; GFR NON-AFRICAN AMERICAN > 60
--- NOTE | 2017-12-27 03:26 | CP.PCM.PN ---
<Nancy Davalos - Last Filed: 12/27/17 03:22> Subjective - Date & Time of Evaluation Date of Evaluation: 12/27/17 Time of Evaluation: 03:22 - Subjective Subjective: Patient seen and examined at bedside. Patient resting comfortably in bed with no new complaints at this time. Patient still feeling bloated from constipation. LE pain is well controlled. Denies fever, chills, chest pain, SOB , and n/v. Objective - Vital Signs/Intake and Output Vital Signs (last 24 hours): Temp Pulse Resp BP Pulse Ox 98.5 F 92 H 20 106/57 L 97 12/26/17 23:30 12/26/17 23:30 12/26/17 23:30 12/26/17 23:30 12/26/17 23:30 Intake and Output: 12/26/17 12/27/17 18:59 06:59 Intake Total 490 500 Balance 490 500 - Medications Medications: Current Medications Acetaminophen (Tylenol 325mg Tab) 650 mg PO Q6 PRN PRN Reason: temperature 100.4F and above Last Admin: 12/25/17 00:57 Dose: 650 mg Albuterol (Ventolin Hfa 90 Mcg/Actuation (8 G)) 2 puff IH RBID [facility] Last Admin: 12/26/17 19:11 Dose: 2 puff Ascorbic Acid (Vitamin C 500 Mg Tab) 1,000 mg PO DAILY [facility] Last Admin: 12/26/17 10:24 Dose: 1,000 mg Aspirin (Ecotrin) 81 mg PO DAILY [facility] Last Admin: 12/26/17 10:33 Dose: 81 mg Clopidogrel Bisulfate (Plavix) 75 mg PO DAILY [facility] Last Admin: 12/26/17 10:26 Dose: 75 mg Docusate Sodium (Colace) 100 mg PO TID [facility] Last Admin: 12/26/17 17:53 Dose: 100 mg Enalapril Maleate (Vasotec) 20 mg PO DAILY [facility] Last Admin: 12/26/17 10:00 Dose: Not Given Heparin Sodium (Porcine) (Heparin) 5,000 units SC Q8 [facility] Last Admin: 12/26/17 21:50 Dose: 5,000 units Sodium Chloride (Sodium Chloride 0.9%) 1,000 mls @ 100 mls/hr IV .Q10H [facility] Last Admin: 12/26/17 17:54 Dose: 100 mls/hr Moxifloxacin HCl (Avelox) 400 mg PO Q24H [facility] PRN Reason: Protocol Last Admin: 12/26/17 16:46 Dose: 400 mg Multivitamins (Hexavitamin) 1 tab PO DAILY [facility] Last Admin: 12/26/17 10:24 Dose: 1 tab Niacin (Niacin) 250 mg PO HS [facility] Last Admin: 12/26/17 21:49 Dose: 250 mg Paxhl-2-Dwsp Ethyl Esters (Lovaza) 1 gm PO DAILY [facility] Last Admin: 12/26/17 10:25 Dose: 1 gm Oxycodone HCl (Oxycontin Extended Release Tab) 30 mg PO Q12 [facility] Last Admin: 12/26/17 21:49 Dose: 30 mg Polyethylene Glycol (Miralax) 17 gm PO DAILY [facility] Last Admin: 12/26/17 10:33 Dose: 17 gm Pregabalin (Lyrica) 75 mg PO DAILY [facility] Last Admin: 12/26/17 10:23 Dose: 75 mg Saccharomyces Boulardii (Florastor) 250 mg PO BID [facility] Last Admin: 12/26/17 17:53 Dose: 250 mg Zinc Sulfate (Zinc Sulfate 220 Mg Cap) 220 mg PO DAILY [facility] Last Admin: 12/26/17 10:25 Dose: 220 mg - Labs Labs: 12/26/17 12:10 12/26/17 12:10 PT 13.3 SECONDS (9.7-12.2) H 12/24/17 07:20 INR 1.2 12/24/17 07:20 APTT 33 SECONDS (21-34) 12/24/17 07:20 - Additional Findings Additional findings: - Constitutional Appears: Non-toxic, No Acute Distress - Head Exam Head Exam: ATRAUMATIC, NORMAL INSPECTION, NORMOCEPHALIC - Eye Exam Eye Exam: EOMI, Normal appearance - ENT Exam ENT Exam: Mucous Membranes Moist, Normal Exam - Neck Exam Neck Exam: Full ROM, Normal Inspection - Respiratory Exam Respiratory Exam: NORMAL BREATHING PATTERN - Cardiovascular Exam Cardiovascular Exam: REGULAR RHYTHM, +S1, +S2 - GI/Abdominal Exam GI & Abdominal Exam: Soft, Tenderness (Lower quadrants). absent: Distended, Firm, Guarding - Extremities Exam Extremities Exam: absent: Normal Inspection RLE: Dressing in place - clean/dry/intact; large blister on dorsal lateral aspect of right foot - Neurological Exam Neurological Exam: Alert, CN II-XII Intact, Oriented x3 - Psychiatric Exam Psychiatric exam: Normal Affect, Normal Mood - Skin Skin Exam: Dry, Normal Color, Warm Assessment and Plan - Assessment and Plan (Free Text) Plan: PVD - S/P right femoral artery with angiojet thrombolysis of the occluded bypass. Patient also had balloon angioplasty of proximal anastomosis and posterior tibial artery POD #2 - Dr. Mallory is consulted - Dr. Macias consulted - Tylenol prn fever - Oxycontin ER 30 mg po Q 12 [facility] - Lyrica 75 mg po qd - Continue Aspirin and plavix - Zinc sulfate COPD -Continue home ventolin inhaler HTN - Vasotec 20 mg po qd HLD - [place] 3, niacin - Lipid panel WNL - HGbAc1 5.4 Raynauds phenomenon - Continue to monitor Prophylaxis Heparin 5000 units SC q8 Colace, Miralax <Reji Barrow H - Last Filed: 12/27/17 12:47> Objective - Vital Signs/Intake and Output Vital Signs (last 24 hours): Temp Pulse Resp BP Pulse Ox 97.4 F L 99 H 20 116/57 L 97 12/27/17 07:25 12/27/17 09:48 12/27/17 07:25 12/27/17 09:51 12/27/17 07:25 Intake and Output: 12/27/17 12/27/17 06:59 18:59 Intake Total 500 Balance 500 - Medications Medications: Current Medications Acetaminophen (Tylenol 325mg Tab) 650 mg PO Q6 PRN PRN Reason: temperature 100.4F and above Last Admin: 12/25/17 00:57 Dose: 650 mg Albuterol (Ventolin Hfa 90 Mcg/Actuation (8 G)) 2 puff IH RBID [facility] Last Admin: 12/27/17 09:40 Dose: 2 puff Ascorbic Acid (Vitamin C 500 Mg Tab) 1,000 mg PO DAILY [facility] Last Admin: 12/27/17 09:50 Dose: 1,000 mg Aspirin (Ecotrin) 81 mg PO DAILY [facility] Last Admin: 12/27/17 09:50 Dose: 81 mg Clopidogrel Bisulfate (Plavix) 75 mg PO DAILY [facility] Last Admin: 12/27/17 09:50 Dose: 75 mg Docusate Sodium (Colace) 100 mg PO TID [facility] Last Admin: 12/27/17 09:49 Dose: 100 mg Enalapril Maleate (Vasotec) 20 mg PO DAILY [facility] Last Admin: 12/27/17 09:51 Dose: Not Given Heparin Sodium (Porcine) (Heparin) 5,000 units SC Q8 [facility] Last Admin: 12/27/17 05:22 Dose: 5,000 units Sodium Chloride (Sodium Chloride 0.9%) 1,000 mls @ 100 mls/hr IV .Q10H [facility] Last Admin: 12/27/17 03:59 Dose: 100 mls/hr Morphine Sulfate (Morphine) 2 mg IVP Q4 PRN PRN Reason: Pain, moderate (4-7) Last Admin: 12/27/17 12:02 Dose: 2 mg Moxifloxacin HCl (Avelox) 400 mg PO Q24H [facility] PRN Reason: Protocol Last Admin: 12/26/17 16:46 Dose: 400 mg Multivitamins (Hexavitamin) 1 tab PO DAILY [facility] Last Admin: 12/27/17 09:50 Dose: 1 tab Niacin (Niacin) 250 mg PO HS [facility] Last Admin: 12/26/17 21:49 Dose: 250 mg Tddpx-8-Nyvc Ethyl Esters (Lovaza) 1 gm PO DAILY [facility] Last Admin: 12/27/17 09:50 Dose: 1 gm Oxycodone HCl (Oxycontin Extended Release Tab) 30 mg PO Q12 [facility] Last Admin: 12/27/17 07:36 Dose: 30 mg Polyethylene Glycol (Miralax) 17 gm PO DAILY [facility] Last Admin: 12/27/17 09:50 Dose: 17 gm Pregabalin (Lyrica) 75 mg PO DAILY [facility] Last Admin: 12/27/17 09:50 Dose: 75 mg Saccharomyces Boulardii (Florastor) 250 mg PO BID [facility] Last Admin: 12/27/17 09:50 Dose: 250 mg Zinc Sulfate (Zinc Sulfate 220 Mg Cap) 220 mg PO DAILY [facility] Last Admin: 12/27/17 09:50 Dose: 220 mg - Labs Labs: 12/27/17 07:44 12/27/17 07:44 PT 13.3 SECONDS (9.7-12.2) H 12/24/17 07:20 INR 1.2 12/24/17 07:20 APTT 33 SECONDS (21-34) 12/24/17 07:20 Attending/Attestation - Attestation I have personally seen and examined this patient.: Yes I have fully participated in the care of the patient.: Yes I have reviewed all pertinent clinical information, including history, physical exam and plan: Yes Notes (Text): 12/27/17 12:45 Medical attending: Patient was seen and examined by me. She was upright out of bed in chair. Not in any acute distress She just had morphine IV given before I came for pain Hgb was 7.5 this morning. She denied palpitations or chest pain, denied shortness of breath. Will give 1 unit of PRBC. Consent done. She is pending further surgical intervention including a skin graft to the right lower extremity this week thank you Reji Barrow
[2017-12-27] MEDS: Sodium Chloride 0.9% 1,000 ML IV SCH ×2 (03:59→13:36)
[2017-12-27] MEDS: oxyCODONE 10 mg ER Tab (oxyCONTIN) PO SCH ×3 (07:36→21:27)
[2017-12-27 07:56] LABS: BASO % 0.3 % (0.0-2.0); EOS # 0.2 K/uL (0.0-0.7); HEMOGLOBIN 7.7 g/dL (11.0-16.0); LYMPH # 1.6 K/uL (1.0-4.3); LYMPH % 16.5 % (20.0-40.0); MEAN CELL VOLUME 92.8 fL (81.0-99.0); MEAN CORPUSCULAR HEMOGLOBIN 31.5 pg (27.0-31.0); MEAN CORPUSCULAR HGB CONC 33.9 g/dL (33.0-37.0); MEAN PLATELET VOLUME 8.8 fL (7.2-11.7); MONO # 0.7 K/uL (0.0-0.8); MONO % 7.5 % (0.0-10.0); NEUT # 6.9 K/uL (1.8-7.0); NEUT % 73.7 % (50.0-75.0); NRBC % 0.1 % (0.0-2.0); RBC 2.44 Mil/uL (3.80-5.20); WHITE BLOOD COUNT 9.4 K/uL (4.8-10.8)
[2017-12-27 08:17] LABS: ALB/GLOB RATIO 0.9 (1.0-2.1); ALBUMIN 2.3 g/dL (3.5-5.0); ALT/SGPT 32 U/L (9-52); AST/SGOT 57 U/L (14-36); BLOOD UREA NITROGEN 19 mg/dL (7-17); CALCIUM 7.5 mg/dl (8.6-10.4); GFR AFRICAN-AMERICAN > 60; GFR NON-AFRICAN AMERICAN > 60
--- NOTE | 2017-12-27 09:21 | CP.PCM.PN ---
Subjective - Date & Time of Evaluation Date of Evaluation: 12/27/17 Time of Evaluation: 07:00 - Subjective Subjective: Patient seen and examined at bedside. Patient complains of worsened pain in the right foot. Patient also has worsening blisters on the dorsum of the right foot , possibly d/t dressing. denies fevers or any other symptoms Objective - Vital Signs/Intake and Output Vital Signs (last 24 hours): Temp Pulse Resp BP Pulse Ox 97.4 F L 98 H 20 108/55 L 97 12/27/17 07:25 12/27/17 07:25 12/27/17 07:25 12/27/17 07:25 12/27/17 07:25 Intake and Output: 12/27/17 12/27/17 06:59 18:59 Intake Total 500 Balance 500 - Medications Medications: Current Medications Acetaminophen (Tylenol 325mg Tab) 650 mg PO Q6 PRN PRN Reason: temperature 100.4F and above Last Admin: 12/25/17 00:57 Dose: 650 mg Albuterol (Ventolin Hfa 90 Mcg/Actuation (8 G)) 2 puff IH RBID [facility] Last Admin: 12/26/17 19:11 Dose: 2 puff Ascorbic Acid (Vitamin C 500 Mg Tab) 1,000 mg PO DAILY [facility] Last Admin: 12/26/17 10:24 Dose: 1,000 mg Aspirin (Ecotrin) 81 mg PO DAILY [facility] Last Admin: 12/26/17 10:33 Dose: 81 mg Clopidogrel Bisulfate (Plavix) 75 mg PO DAILY [facility] Last Admin: 12/26/17 10:26 Dose: 75 mg Docusate Sodium (Colace) 100 mg PO TID [facility] Last Admin: 12/26/17 17:53 Dose: 100 mg Enalapril Maleate (Vasotec) 20 mg PO DAILY [facility] Last Admin: 12/26/17 10:00 Dose: Not Given Heparin Sodium (Porcine) (Heparin) 5,000 units SC Q8 [facility] Last Admin: 12/27/17 05:22 Dose: 5,000 units Sodium Chloride (Sodium Chloride 0.9%) 1,000 mls @ 100 mls/hr IV .Q10H [facility] Last Admin: 12/27/17 03:59 Dose: 100 mls/hr Morphine Sulfate (Morphine) 2 mg IVP Q4 PRN PRN Reason: Pain, moderate (4-7) Moxifloxacin HCl (Avelox) 400 mg PO Q24H [facility] PRN Reason: Protocol Last Admin: 12/26/17 16:46 Dose: 400 mg Multivitamins (Hexavitamin) 1 tab PO DAILY [facility] Last Admin: 12/26/17 10:24 Dose: 1 tab Niacin (Niacin) 250 mg PO HS [facility] Last Admin: 12/26/17 21:49 Dose: 250 mg Stisw-2-Sqiz Ethyl Esters (Lovaza) 1 gm PO DAILY [facility] Last Admin: 12/26/17 10:25 Dose: 1 gm Oxycodone HCl (Oxycontin Extended Release Tab) 30 mg PO Q12 [facility] Last Admin: 12/27/17 07:36 Dose: 30 mg Polyethylene Glycol (Miralax) 17 gm PO DAILY [facility] Last Admin: 12/26/17 10:33 Dose: 17 gm Pregabalin (Lyrica) 75 mg PO DAILY [facility] Last Admin: 12/26/17 10:23 Dose: 75 mg Saccharomyces Boulardii (Florastor) 250 mg PO BID [facility] Last Admin: 12/26/17 17:53 Dose: 250 mg Zinc Sulfate (Zinc Sulfate 220 Mg Cap) 220 mg PO DAILY [facility] Last Admin: 12/26/17 10:25 Dose: 220 mg - Labs Labs: 12/27/17 07:44 12/27/17 07:44 PT 13.3 SECONDS (9.7-12.2) H 12/24/17 07:20 INR 1.2 12/24/17 07:20 APTT 33 SECONDS (21-34) 12/24/17 07:20 - Constitutional Appears: Non-toxic, No Acute Distress - Head Exam Head Exam: ATRAUMATIC, NORMOCEPHALIC - Eye Exam Eye Exam: Normal appearance. absent: Conjunctival injection, Scleral icterus - ENT Exam ENT Exam: Mucous Membranes Moist, Normal Oropharynx - Respiratory Exam Respiratory Exam: NORMAL BREATHING PATTERN. absent: Accessory Muscle Use, Respiratory Distress - Extremities Exam Additional comments: right foot with persistent erythema, moderately tender to the touch, warm. 3 large blisters with clear yellow fluid contents on the dorsum of the foot. 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 Mallory Discussed with Dr. Mallory, further recs per him Natalee Segura, PGY2
[2017-12-27] MEDS: Albuterol HFA 90 mcg/actuation (8 g) IH SCH ×2 (09:40→20:16)
[2017-12-27] MEDS: Saccharomyces Boulardi 250 mg Cap PO SCH ×2 (09:50→17:33)
[2017-12-27] MEDS: Omega-3-Acid Ethyl Esters 1 GM Cap PO SCH (09:50)
[2017-12-27] MEDS: POLYETHYLENE GLYCOL 3350 17 GM/Dose PACKET PO SCH (09:50)
[2017-12-27] MEDS: Multiple Vitamins Tab PO SCH (09:50)
--- NOTE | 2017-12-27 12:55 | CP.PCM.PN ---
<Alexandria Ernst - Last Filed: 12/27/17 20:31> Subjective - Date & Time of Evaluation Date of Evaluation: 12/27/17 Time of Evaluation: 12:54 - Subjective Subjective: Podiatry Progress Note - Dr. Macias 82 year old female seen at bedside accompanied by her sons and other family members for right hallux amputation wound and dorsal foot fluid blisters. Pt is seated comfortably in bedside chair. She admits to having pain in the right lower extremity since her circulation procedure. States she has been trying to practice walking more around her room. Denies any overnight events. She currently denies F/C/N/V/CP/SOB Objective - Vital Signs/Intake and Output Vital Signs (last 24 hours): Temp Pulse Resp BP Pulse Ox 97.4 F L 99 H 20 116/57 L 97 12/27/17 07:25 12/27/17 09:48 12/27/17 07:25 12/27/17 09:51 12/27/17 07:25 Intake and Output: 12/27/17 12/27/17 06:59 18:59 Intake Total 500 Balance 500 - Medications Medications: Current Medications Acetaminophen (Tylenol 325mg Tab) 650 mg PO Q6 PRN PRN Reason: temperature 100.4F and above Last Admin: 12/25/17 00:57 Dose: 650 mg Albuterol (Ventolin Hfa 90 Mcg/Actuation (8 G)) 2 puff IH RBID [facility] Last Admin: 12/27/17 09:40 Dose: 2 puff Ascorbic Acid (Vitamin C 500 Mg Tab) 1,000 mg PO DAILY [facility] Last Admin: 12/27/17 09:50 Dose: 1,000 mg Aspirin (Ecotrin) 81 mg PO DAILY [facility] Last Admin: 12/27/17 09:50 Dose: 81 mg Clopidogrel Bisulfate (Plavix) 75 mg PO DAILY [facility] Last Admin: 12/27/17 09:50 Dose: 75 mg Docusate Sodium (Colace) 100 mg PO TID [facility] Last Admin: 12/27/17 09:49 Dose: 100 mg Enalapril Maleate (Vasotec) 20 mg PO DAILY [facility] Last Admin: 12/27/17 09:51 Dose: Not Given Heparin Sodium (Porcine) (Heparin) 5,000 units SC Q8 [facility] Last Admin: 12/27/17 05:22 Dose: 5,000 units Sodium Chloride (Sodium Chloride 0.9%) 1,000 mls @ 100 mls/hr IV .Q10H [facility] Last Admin: 12/27/17 03:59 Dose: 100 mls/hr Morphine Sulfate (Morphine) 2 mg IVP Q4 PRN PRN Reason: Pain, moderate (4-7) Last Admin: 12/27/17 12:02 Dose: 2 mg Moxifloxacin HCl (Avelox) 400 mg PO Q24H [facility] PRN Reason: Protocol Last Admin: 12/26/17 16:46 Dose: 400 mg Multivitamins (Hexavitamin) 1 tab PO DAILY [facility] Last Admin: 12/27/17 09:50 Dose: 1 tab Niacin (Niacin) 250 mg PO HS [facility] Last Admin: 12/26/17 21:49 Dose: 250 mg [id number]-[id number] Ethyl Esters (Lovaza) 1 gm PO DAILY [facility] Last Admin: 12/27/17 09:50 Dose: 1 gm Oxycodone HCl (Oxycontin Extended Release Tab) 30 mg PO Q12 [facility] Last Admin: 12/27/17 07:36 Dose: 30 mg Polyethylene Glycol (Miralax) 17 gm PO DAILY [facility] Last Admin: 12/27/17 09:50 Dose: 17 gm Pregabalin (Lyrica) 75 mg PO DAILY [facility] Last Admin: 12/27/17 09:50 Dose: 75 mg Saccharomyces Boulardii (Florastor) 250 mg PO BID [facility] Last Admin: 12/27/17 09:50 Dose: 250 mg Zinc Sulfate (Zinc Sulfate 220 Mg Cap) 220 mg PO DAILY [facility] Last Admin: 12/27/17 09:50 Dose: 220 mg - Labs Labs: 12/27/17 07:44 12/27/17 07:44 PT 13.3 SECONDS (9.7-12.2) H 12/24/17 07:20 INR 1.2 12/24/17 07:20 APTT 33 SECONDS (21-34) 12/24/17 07:20 - Constitutional Appears: Well, Non-toxic, No Acute Distress - Extremities Exam Additional comments: Right lower extremity focused. Dressing is intact with serous strikethrough noted Vasc: DP and PT pulses are palpable 1/4. Temperature runs warm to warm proximal to distal. Localized edema noted to the remaining hallux. Cap refill time to remaining digits: < 3 sec. Derm: Partial thickness wound to hallux amputation site measuring 0.6 x 3.2 cm with fibro-necrotic base, margins stable, no gapping, tunneling or undermining noted. 2nd digit well healed, stable cicatrix noted. No active drainage, no fluctuance, no malodor noted. Several fluid filled blisters noted to dorsum of right foot, transparent in appearance with clear fluid. Post lancing, no underlying wounds. Ortho: 1st and 2nd digit partial amputations noted. Mild tenderness to palpation along right heel. Tenderness to palpation of dorsum of right foot and entirety of right leg. No evidence of deep tissue injury or pre-ulcerative pressure ulcerations. Pedal muscle strength is graded 4/5 in inversion and eversion of leg muscle groups, graded 5/5 in dorsiflexory and plantarflexory leg muscle groups. Neuro: gross and protective sensation diminished - Neurological Exam Neurological Exam: Alert, Oriented x3 - Psychiatric Exam Psychiatric exam: Normal Affect, Normal Mood Assessment and Plan - Assessment and Plan (Free Text) Assessment: 82 year old female with 1) left hallux post-surgical wound secondary to PAD and 2) fluid filled blisters to right foot Plan: Pt seen and evaluated at bedside Discussed with Dr. Macias Chart, labs, and vitals reviewed - afebrile, no leukocytosis Local wound care performed to hallux amp site with Grant and ZAIDAD Fluid filled blisters lanced and drained with sterile 25 gauge needle Pt tolerated procedure without incident Posterior right leg graft covered with dry dressing - per vascular surgery team , posterior leg wound to be left untouched with plans for future skin graft No surgical podiatric intervention indicated at this time Podiatry will continue to follow while in house <Filippo Macias - Last Filed: 12/28/17 10:36> Objective - Vital Signs/Intake and Output Vital Signs (last 24 hours): Temp Pulse Resp BP Pulse Ox 98.5 F 96 H 20 140/70 94 L 12/28/17 08:14 12/28/17 08:14 12/28/17 08:14 12/28/17 10:25 12/28/17 08:14 Intake and Output: 12/28/17 12/28/17 06:59 18:59 Intake Total 1900 Balance 1900 - Medications Medications: Current Medications Acetaminophen (Tylenol 325mg Tab) 650 mg PO Q6 PRN PRN Reason: temperature 100.4F and above Last Admin: 12/25/17 00:57 Dose: 650 mg Albuterol (Ventolin Hfa 90 Mcg/Actuation (8 G)) 2 puff IH RBID [facility] Last Admin: 12/28/17 09:04 Dose: 2 puff Ascorbic Acid (Vitamin C 500 Mg Tab) 1,000 mg PO DAILY [facility] Last Admin: 12/28/17 10:27 Dose: 1,000 mg Aspirin (Ecotrin) 81 mg PO DAILY [facility] Last Admin: 12/28/17 10:25 Dose: 81 mg Clopidogrel Bisulfate (Plavix) 75 mg PO DAILY [facility] Last Admin: 12/28/17 10:24 Dose: 75 mg Docusate Sodium (Colace) 100 mg PO TID [facility] Last Admin: 12/28/17 10:24 Dose: 100 mg Enalapril Maleate (Vasotec) 20 mg PO DAILY [facility] Last Admin: 12/28/17 10:25 Dose: 20 mg Heparin Sodium (Porcine) (Heparin) 5,000 units SC Q8 [facility] Last Admin: 12/28/17 05:57 Dose: 5,000 units Sodium Chloride (Sodium Chloride 0.9%) 1,000 mls @ 100 mls/hr IV .Q10H [facility] Last Admin: 12/28/17 06:00 Dose: 100 mls/hr Morphine Sulfate (Morphine) 2 mg IVP Q4 PRN PRN Reason: Pain, moderate (4-7) Last Admin: 12/27/17 12:02 Dose: 2 mg Moxifloxacin HCl (Avelox) 400 mg PO Q24H [facility] PRN Reason: Protocol Last Admin: 12/27/17 17:33 Dose: 400 mg Multivitamins (Hexavitamin) 1 tab PO DAILY [facility] Last Admin: 12/28/17 10:24 Dose: 1 tab Niacin (Niacin) 250 mg PO HS [facility] Last Admin: 12/27/17 21:27 Dose: 250 mg Sijrm-2-Ctuo Ethyl Esters (Lovaza) 1 gm PO DAILY [facility] Last Admin: 12/28/17 10:25 Dose: 1 gm Oxycodone HCl (Oxycontin Extended Release Tab) 30 mg PO Q12 [facility] Last Admin: 12/28/17 10:24 Dose: 30 mg Polyethylene Glycol (Miralax) 17 gm PO DAILY [facility] Last Admin: 12/28/17 10:25 Dose: Not Given Pregabalin (Lyrica) 75 mg PO DAILY [facility] Last Admin: 12/28/17 10:25 Dose: 75 mg Saccharomyces Boulardii (Florastor) 250 mg PO BID [facility] Last Admin: 12/28/17 10:25 Dose: 250 mg Zinc Sulfate (Zinc Sulfate 220 Mg Cap) 220 mg PO DAILY [facility] Last Admin: 12/28/17 10:25 Dose: 220 mg - Labs Labs: 12/28/17 06:45 12/28/17 06:45 PT 13.3 SECONDS (9.7-12.2) H 12/24/17 07:20 INR 1.2 12/24/17 07:20 APTT 33 SECONDS (21-34) 12/24/17 07:20 Assessment and Plan - Assessment and Plan (Free Text) Plan: Discussed case with the resident. Discussed speaking to vascular about the vascular disease and continue local wound care at this time.
[2017-12-28] MEDS: Sodium Chloride 0.9% 1,000 ML IV SCH ×4 (00:15→20:59)
[2017-12-28 06:55] LABS: BASO # 0.1 K/uL (0.0-0.2); BASO % 0.8 % (0.0-2.0); EOS # 0.2 K/uL (0.0-0.7); EOS % 1.9 % (0.0-4.0); HEMOGLOBIN 8.8 g/dL (11.0-16.0); LYMPH # 1.7 K/uL (1.0-4.3); LYMPH % 16.9 % (20.0-40.0); MEAN CELL VOLUME 91.4 fL (81.0-99.0); MEAN CORPUSCULAR HEMOGLOBIN 31.3 pg (27.0-31.0); MEAN CORPUSCULAR HGB CONC 34.2 g/dL (33.0-37.0); MEAN PLATELET VOLUME 8.8 fL (7.2-11.7); MONO # 0.8 K/uL (0.0-0.8); MONO % 8.2 % (0.0-10.0); NEUT # 7.4 K/uL (1.8-7.0); NEUT % 72.2 % (50.0-75.0); RBC 2.81 Mil/uL (3.80-5.20); RED CELL DISTRIBUTION WIDTH 15.4 % (11.5-14.5); WHITE BLOOD COUNT 10.2 K/uL (4.8-10.8)
[2017-12-28 07:03] LABS: ALB/GLOB RATIO 0.9 (1.0-2.1); ALBUMIN 2.5 g/dL (3.5-5.0); ALT/SGPT 35 U/L (9-52); AST/SGOT 33 U/L (14-36); BLOOD UREA NITROGEN 14 mg/dL (7-17); CALCIUM 7.7 mg/dl (8.6-10.4); GFR AFRICAN-AMERICAN > 60; GFR NON-AFRICAN AMERICAN > 60
--- NOTE | 2017-12-28 07:39 | CP.PCM.PN ---
Subjective - Date & Time of Evaluation Date of Evaluation: 12/28/17 Time of Evaluation: 07:00 - Subjective Subjective: Vascular surgery progress note for Dr. Debbie Marin, PGY-1 Pt S & E at bedside. Pt reports increased LE pain and "heaviness" overnight. Yesterday, podiatry addressed dorsal foot blisters and re-dressed foot and lower extremity. No other events overnight. Objective - Vital Signs/Intake and Output Vital Signs (last 24 hours): Temp Pulse Resp BP Pulse Ox 97.9 F 88 18 126/59 L 98 12/27/17 23:30 12/27/17 23:30 12/27/17 23:30 12/27/17 23:30 12/27/17 23:30 Intake and Output: 12/28/17 12/28/17 06:59 18:59 Intake Total 1900 Balance 1900 - Medications Medications: Current Medications Acetaminophen (Tylenol 325mg Tab) 650 mg PO Q6 PRN PRN Reason: temperature 100.4F and above Last Admin: 12/25/17 00:57 Dose: 650 mg Albuterol (Ventolin Hfa 90 Mcg/Actuation (8 G)) 2 puff IH RBID [facility] Last Admin: 12/27/17 20:16 Dose: 2 puff Ascorbic Acid (Vitamin C 500 Mg Tab) 1,000 mg PO DAILY [facility] Last Admin: 12/27/17 09:50 Dose: 1,000 mg Aspirin (Ecotrin) 81 mg PO DAILY [facility] Last Admin: 12/27/17 09:50 Dose: 81 mg Clopidogrel Bisulfate (Plavix) 75 mg PO DAILY [facility] Last Admin: 12/27/17 09:50 Dose: 75 mg Docusate Sodium (Colace) 100 mg PO TID [facility] Last Admin: 12/27/17 17:33 Dose: 100 mg Enalapril Maleate (Vasotec) 20 mg PO DAILY [facility] Last Admin: 12/27/17 09:51 Dose: Not Given Heparin Sodium (Porcine) (Heparin) 5,000 units SC Q8 [facility] Last Admin: 12/28/17 05:57 Dose: 5,000 units Sodium Chloride (Sodium Chloride 0.9%) 1,000 mls @ 100 mls/hr IV .Q10H [facility] Last Admin: 12/28/17 06:00 Dose: 100 mls/hr Morphine Sulfate (Morphine) 2 mg IVP Q4 PRN PRN Reason: Pain, moderate (4-7) Last Admin: 12/27/17 12:02 Dose: 2 mg Moxifloxacin HCl (Avelox) 400 mg PO Q24H [facility] PRN Reason: Protocol Last Admin: 12/27/17 17:33 Dose: 400 mg Multivitamins (Hexavitamin) 1 tab PO DAILY [facility] Last Admin: 12/27/17 09:50 Dose: 1 tab Niacin (Niacin) 250 mg PO HS [facility] Last Admin: 12/27/17 21:27 Dose: 250 mg [id number]-4-Tzfp Ethyl Esters (Lovaza) 1 gm PO DAILY [facility] Last Admin: 12/27/17 09:50 Dose: 1 gm Oxycodone HCl (Oxycontin Extended Release Tab) 30 mg PO Q12 [facility] Last Admin: 12/27/17 21:27 Dose: 30 mg Polyethylene Glycol (Miralax) 17 gm PO DAILY [facility] Last Admin: 12/27/17 09:50 Dose: 17 gm Pregabalin (Lyrica) 75 mg PO DAILY [facility] Last Admin: 12/27/17 09:50 Dose: 75 mg Saccharomyces Boulardii (Florastor) 250 mg PO BID [facility] Last Admin: 12/27/17 17:33 Dose: 250 mg Zinc Sulfate (Zinc Sulfate 220 Mg Cap) 220 mg PO DAILY [facility] Last Admin: 12/27/17 09:50 Dose: 220 mg - Labs Labs: 12/28/17 06:45 12/28/17 06:45 PT 13.3 SECONDS (9.7-12.2) H 12/24/17 07:20 INR 1.2 12/24/17 07:20 APTT 33 SECONDS (21-34) 12/24/17 07:20 - Constitutional Appears: Non-toxic, No Acute Distress - Head Exam Head Exam: ATRAUMATIC, NORMAL INSPECTION, NORMOCEPHALIC - Eye Exam Eye Exam: EOMI, Normal appearance - ENT Exam ENT Exam: Mucous Membranes Moist, Normal Exam - Neck Exam Neck Exam: Full ROM, Normal Inspection - Respiratory Exam Respiratory Exam: NORMAL BREATHING PATTERN - Cardiovascular Exam Cardiovascular Exam: REGULAR RHYTHM, +S1, +S2 - GI/Abdominal Exam GI & Abdominal Exam: Soft - Extremities Exam Additional comments: Right foot & calf with dressing in place- scant serous strike through of distal aspect of foot - Neurological Exam Neurological Exam: Alert, Awake, CN II-XII Intact, Oriented x3 - Psychiatric Exam Psychiatric exam: Normal Affect, Normal Mood - Skin Skin Exam: Dry, Intact, Warm. absent: Normal Color (Right lower extremity above dressing with redness above, edema) Assessment and Plan - Assessment and Plan (Free Text) Assessment: 82F with PVD POD# 4 s/p angioplasty with stent of the right lower extremity bypass graft with chronic right lower extremity wound down to the bypass graft Plan: Do not remove dressing from Right calf Wound care for right foot per podiatry Cont Abx Monitor labs OOBTC PT Ambulate with assistance Possible skin graft for right lower extremity wound Further mgmt as per primary team DRE attending Tania, PGY-1
[2017-12-28] MEDS: Albuterol HFA 90 mcg/actuation (8 g) IH SCH ×2 (09:04→22:03)
[2017-12-28] MEDS: oxyCODONE 10 mg ER Tab (oxyCONTIN) PO SCH ×2 (10:24→21:24)
[2017-12-28] MEDS: Multiple Vitamins Tab PO SCH (10:24)
[2017-12-28] MEDS: Omega-3-Acid Ethyl Esters 1 GM Cap PO SCH (10:25)
[2017-12-28] MEDS: POLYETHYLENE GLYCOL 3350 17 GM/Dose PACKET PO SCH (10:25)
[2017-12-28] MEDS: Saccharomyces Boulardi 250 mg Cap PO SCH ×2 (10:25→16:59)
[2017-12-28] MEDS ORDERED: Potassium Chloride 20 mEq ER Tab PO ONE ×2 (10:52→12:45)
--- NOTE | 2017-12-28 17:38 | CP.PCM.PN ---
Subjective - Date & Time of Evaluation Date of Evaluation: 12/28/17 Time of Evaluation: 17:35 - Subjective Subjective: Podiatry Progress Note - Dr. Macias 82 year old female seen at bedside accompanied by her son and other family members for right hallux amputation wound and dorsal foot fluid blisters. Patient is seen in bed resting comfortably. She admits to having pain in the right lower extremity since her circulation procedure. Denies any overnight events. She currently denies F/C/N/V/CP/SOB Objective - Vital Signs/Intake and Output Vital Signs (last 24 hours): Temp Pulse Resp BP Pulse Ox 98.0 F 84 20 128/56 L 99 12/28/17 15:00 12/28/17 15:00 12/28/17 15:00 12/28/17 15:00 12/28/17 15:00 Intake and Output: 12/28/17 12/28/17 06:59 18:59 Intake Total 1900 Balance 1900 - Medications Medications: Current Medications Acetaminophen (Tylenol 325mg Tab) 650 mg PO Q6 PRN PRN Reason: temperature 100.4F and above Last Admin: 12/25/17 00:57 Dose: 650 mg Albuterol (Ventolin Hfa 90 Mcg/Actuation (8 G)) 2 puff IH RBID [facility] Last Admin: 12/28/17 09:04 Dose: 2 puff Ascorbic Acid (Vitamin C 500 Mg Tab) 1,000 mg PO DAILY [facility] Last Admin: 12/28/17 10:27 Dose: 1,000 mg Aspirin (Ecotrin) 81 mg PO DAILY [facility] Last Admin: 12/28/17 10:25 Dose: 81 mg Clopidogrel Bisulfate (Plavix) 75 mg PO DAILY [facility] Last Admin: 12/28/17 10:24 Dose: 75 mg Docusate Sodium (Colace) 100 mg PO TID [facility] Last Admin: 12/28/17 16:59 Dose: 100 mg Enalapril Maleate (Vasotec) 20 mg PO DAILY [facility] Last Admin: 12/28/17 10:25 Dose: 20 mg Heparin Sodium (Porcine) (Heparin) 5,000 units SC Q8 [facility] Last Admin: 12/28/17 14:59 Dose: 5,000 units Sodium Chloride (Sodium Chloride 0.9%) 1,000 mls @ 100 mls/hr IV .Q10H [facility] Last Admin: 12/28/17 16:14 Dose: 100 mls/hr Morphine Sulfate (Morphine) 2 mg IVP Q4 PRN PRN Reason: Pain, moderate (4-7) Last Admin: 12/27/17 12:02 Dose: 2 mg Moxifloxacin HCl (Avelox) 400 mg PO Q24H [facility] PRN Reason: Protocol Last Admin: 12/28/17 16:13 Dose: 400 mg Multivitamins (Hexavitamin) 1 tab PO DAILY [facility] Last Admin: 12/28/17 10:24 Dose: 1 tab Niacin (Niacin) 250 mg PO HS [facility] Last Admin: 12/27/17 21:27 Dose: 250 mg Urxnl-7-Hvvx Ethyl Esters (Lovaza) 1 gm PO DAILY [facility] Last Admin: 12/28/17 10:25 Dose: 1 gm Oxycodone HCl (Oxycontin Extended Release Tab) 30 mg PO Q12 [facility] Last Admin: 12/28/17 10:24 Dose: 30 mg Polyethylene Glycol (Miralax) 17 gm PO DAILY [facility] Last Admin: 12/28/17 10:25 Dose: Not Given Pregabalin (Lyrica) 75 mg PO DAILY [facility] Last Admin: 12/28/17 10:25 Dose: 75 mg Saccharomyces Boulardii (Florastor) 250 mg PO BID [facility] Last Admin: 12/28/17 16:59 Dose: 250 mg Zinc Sulfate (Zinc Sulfate 220 Mg Cap) 220 mg PO DAILY [facility] Last Admin: 12/28/17 10:25 Dose: 220 mg - Labs Labs: 12/28/17 06:45 12/28/17 06:45 PT 13.3 SECONDS (9.7-12.2) H 12/24/17 07:20 INR 1.2 12/24/17 07:20 APTT 33 SECONDS (21-34) 12/24/17 07:20 - Constitutional Appears: Non-toxic, No Acute Distress - Extremities Exam Additional comments: Right lower extremity focused. Dressing is intact with serous strikethrough noted Vasc: DP and PT pulses are palpable 1/4. Temperature runs warm to warm proximal to distal. Localized edema noted to the remaining hallux. Cap refill time to remaining digits: < 3 sec. Derm: Partial thickness wound to hallux amputation site measuring approximately 0.6 x 3.2 cm with fibro-necrotic base, margins stable, no gapping, tunneling or undermining noted. 2nd digit well healed, stable cicatrix noted. No active drainage, no fluctuance, no malodor noted. Several fluid filled blisters noted to dorsum of right foot, transparent in appearance with clear fluid, one with sanguinous fluid. Ortho: 1st and 2nd digit partial amputations noted. Mild tenderness to palpation along right heel. Tenderness to palpation of dorsum of right foot and entirety of right leg. No evidence of deep tissue injury or pre-ulcerative pressure ulcerations. Pedal muscle strength is graded 4/5 in inversion and eversion of leg muscle groups, graded 5/5 in dorsiflexory and plantarflexory leg muscle groups. Neuro: gross and protective sensation diminished - Neurological Exam Neurological Exam: Alert, Awake, Oriented x3 - Psychiatric Exam Psychiatric exam: Normal Affect, Normal Mood Assessment and Plan - Assessment and Plan (Free Text) Assessment: 82 year old female with 1) left hallux post-surgical wound secondary to PAD and 2) fluid filled blisters to right foot Plan: Pt seen and evaluated at bedside Discussed with Dr. Macias Chart, labs, and vitals reviewed - afebrile, WBC 10.2 Local wound care performed to hallux amp site with Grant and CLAUDE per vascular surgery team, posterior leg wound to be left untouched with plans for future skin graft No surgical podiatric intervention indicated at this time Podiatry will continue to follow while in house
--- NOTE | 2017-12-28 18:19 | CP.PCM.PN ---
Addendum entered and electronically signed by Sandrine Welch 12/28/17 18:30: Hx of COPD * Currently not in acute exacerbation * Ventolin 2 puff BID Original Note: <Sandrine Welch - Last Filed: 12/28/17 18:16> Subjective - Date & Time of Evaluation Date of Evaluation: 12/28/17 Time of Evaluation: 09:00 - Subjective Subjective: Medicine progress note ( Dr. Sharon Moody's service) Patient was seen and examined at bedside with son present. Patient reports that she is doing well with no new complaints. Patient is s/p aortofemoral angiogrm via left groin. selective catherization of right femoral artery. angiojet thrombolysis of occluded bypass. balloon angioplasty of proximal anastomosis ( distal sfa). balloon angioplasty of posterior tibial artery. perclose left groin. ceployment of 10x6 viabahn and 7x39 vbx at ruptures proximal anastomsis POD # 4. Patient denies any pain. Objective - Vital Signs/Intake and Output Vital Signs (last 24 hours): Temp Pulse Resp BP Pulse Ox 98.0 F 84 20 128/56 L 99 12/28/17 15:00 12/28/17 15:00 12/28/17 15:00 12/28/17 15:00 12/28/17 15:00 Intake and Output: 12/28/17 12/28/17 06:59 18:59 Intake Total 1900 Balance 1900 - Medications Medications: Current Medications Acetaminophen (Tylenol 325mg Tab) 650 mg PO Q6 PRN PRN Reason: temperature 100.4F and above Last Admin: 12/25/17 00:57 Dose: 650 mg Albuterol (Ventolin Hfa 90 Mcg/Actuation (8 G)) 2 puff IH RBID [facility] Last Admin: 12/28/17 09:04 Dose: 2 puff Ascorbic Acid (Vitamin C 500 Mg Tab) 1,000 mg PO DAILY [facility] Last Admin: 12/28/17 10:27 Dose: 1,000 mg Aspirin (Ecotrin) 81 mg PO DAILY [facility] Last Admin: 12/28/17 10:25 Dose: 81 mg Clopidogrel Bisulfate (Plavix) 75 mg PO DAILY [facility] Last Admin: 12/28/17 10:24 Dose: 75 mg Docusate Sodium (Colace) 100 mg PO TID [facility] Last Admin: 04/30/18 16:59 Dose: 100 mg Enalapril Maleate (Vasotec) 20 mg PO DAILY [facility] Last Admin: 12/28/17 10:25 Dose: 20 mg Heparin Sodium (Porcine) (Heparin) 5,000 units SC Q8 [facility] Last Admin: 12/28/17 14:59 Dose: 5,000 units Sodium Chloride (Sodium Chloride 0.9%) 1,000 mls @ 100 mls/hr IV .Q10H [facility] Last Admin: 12/28/17 16:14 Dose: 100 mls/hr Morphine Sulfate (Morphine) 2 mg IVP Q4 PRN PRN Reason: Pain, moderate (4-7) Last Admin: 12/27/17 12:02 Dose: 2 mg Moxifloxacin HCl (Avelox) 400 mg PO Q24H [facility] PRN Reason: Protocol Last Admin: 12/28/17 16:13 Dose: 400 mg Multivitamins (Hexavitamin) 1 tab PO DAILY [facility] Last Admin: 12/28/17 10:24 Dose: 1 tab Niacin (Niacin) 250 mg PO HS [facility] Last Admin: 12/27/17 21:27 Dose: 250 mg Thfgx-1-Iope Ethyl Esters (Lovaza) 1 gm PO DAILY [facility] Last Admin: 12/28/17 10:25 Dose: 1 gm Oxycodone HCl (Oxycontin Extended Release Tab) 30 mg PO Q12 [facility] Last Admin: 12/28/17 10:24 Dose: 30 mg Polyethylene Glycol (Miralax) 17 gm PO DAILY [facility] Last Admin: 12/28/17 10:25 Dose: Not Given Pregabalin (Lyrica) 75 mg PO DAILY [facility] Last Admin: 12/28/17 10:25 Dose: 75 mg Saccharomyces Boulardii (Florastor) 250 mg PO BID [facility] Last Admin: 12/28/17 16:59 Dose: 250 mg Zinc Sulfate (Zinc Sulfate 220 Mg Cap) 220 mg PO DAILY [facility] Last Admin: 12/28/17 10:25 Dose: 220 mg - Labs Labs: 12/28/17 06:45 12/28/17 06:45 PT 13.3 SECONDS (9.7-12.2) H 12/24/17 07:20 INR 1.2 12/24/17 07:20 APTT 33 SECONDS (21-34) 12/24/17 07:20 - Constitutional Appears: Well, No Acute Distress - Head Exam Head Exam: ATRAUMATIC, NORMAL INSPECTION - Eye Exam Eye Exam: EOMI, Normal appearance - ENT Exam ENT Exam: Mucous Membranes Moist - Respiratory Exam Respiratory Exam: Clear to Ausculation Bilateral, NORMAL BREATHING PATTERN. absent: Rhonchi, Wheezes - Cardiovascular Exam Cardiovascular Exam: REGULAR RHYTHM, +S1, +S2. absent: Murmur - GI/Abdominal Exam GI & Abdominal Exam: Soft, Normal Bowel Sounds. absent: Firm, Guarding, Rigid, Tenderness - Extremities Exam Additional comments: s/p aortofemoral angiogrm via left groin. selective catherization of right femoral artery. angiojet thrombolysis of occluded bypass. balloon angioplasty of proximal anastomosis ( distal sfa). balloon angioplasty of posterior tibial artery. perclose left groin. ceployment of 10x6 viabahn and 7x39 vbx at ruptures proximal anastomsis POD # 4. Patient denies any pain. Right leg is warm to touch Pulses audible with doppler - Neurological Exam Neurological Exam: Alert, Awake, Oriented x3 - Psychiatric Exam Psychiatric exam: Normal Affect - Skin Skin Exam: Normal Color Assessment and Plan (1) Ischemia of right lower extremity Assessment & Plan: Consultations: Vascular [place], Dr. Mallory---> Help appreciated * All management as per vascular surgery. * s/p aortofemoral angiogrm via left groin. selective catherization of right femoral artery. angiojet thrombolysis of occluded bypass. balloon angioplasty of proximal anastomosis ( distal sfa). balloon angioplasty of posterior tibial artery. perclose left groin. ceployment of 10x6 viabahn and 7x39 vbx at ruptures proximal anastomsis POD # 4. Diagnostic imaging: Arterial duplex right lower extremity (12/21/17): Occuluded right mid superficial femoral to posterior tibial artery bypass graft, anterior tibial and dorsalis pedis arteries. 30-49% stenosis of the right proximal superficial femoral artery Abdominal Angiography (12/21/17): Right femoral/popliteal arteries: Mild atherosclerotic disease of common femoral artery. [id number] atherosclerotic disease of superficial femoral artery. Occlusion of popliteal artery. Right calf/foot arteries: Reconstituted diminished, attenuated intermittent flow to anterior tibial, posterior tibial, and peroneal arteries. 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 Amputation second digit to level shaft of proximal phalanx. F/u CT angiogram results Medications: * ASA 81mg PO daily * Plavix 75mg PO daily * Lyrica 75mg PO daily * Morphine 2mg IV q4h prn * Percocet 1 tab PO Q4H prn and 2 tab PO q4h prn (Pain control) * Oxycontin 30mg PO Q12H s Status: Acute (2) Hypertension Assessment & Plan: Controlled with medication Continue home medication: * Vasotec 20mg PO daily Status: Acute (3) Hypertriglyceridemia Assessment & Plan: Continue home medication: * Lovaza 1 tab po daily Lipid Panel (12/22/17): * TGL:125, Cholesterol:128, LDL:72 and HDL:27 Status: Acute (4) Low HDL (under 40) Assessment & Plan: Medication: Niacin 250mg PO HS Status: Acute (5) Ulcer of right lower leg Assessment & Plan: Podiatry: Dr. Macias * Management as per recommendation General surgery, Dr. Mallory * Plans for possible skin graft Wound Culture: + Klebsiella Oxytoca and Corynebacterium Species Medications/Management: * Avelox 400mg PO q12h * Florastor 250mg PO BID * Vitamin C 1,000mg PO daily * Zinc 220mg PO daily * Wound Care Status: Acute (6) Constipation Assessment & Plan: Miralax 17gm PO Daily Status: Acute (7) Prophylactic measure Assessment & Plan: GI: Pepcid 20mg PO daily DVT: SCDs on left extremity. Heparin 5,000 units Q8H Multivitamins 1 tab PO daily All plans and management discussed with Dr. Sharon Moody Status: Acute <Michael Moody - Last Filed: 12/28/17 19:04> Objective - Vital Signs/Intake and Output Vital Signs (last 24 hours): Temp Pulse Resp BP Pulse Ox 98.0 F 84 20 128/56 L 99 12/28/17 15:00 12/28/17 15:00 12/28/17 15:00 12/28/17 15:00 12/28/17 15:00 - Medications Medications: Current Medications Acetaminophen (Tylenol 325mg Tab) 650 mg PO Q6 PRN PRN Reason: temperature 100.4F and above Last Admin: 12/25/17 00:57 Dose: 650 mg Albuterol (Ventolin Hfa 90 Mcg/Actuation (8 G)) 2 puff IH RBID [facility] Last Admin: 12/28/17 09:04 Dose: 2 puff Ascorbic Acid (Vitamin C 500 Mg Tab) 1,000 mg PO DAILY [facility] Last Admin: 12/28/17 10:27 Dose: 1,000 mg Aspirin (Ecotrin) 81 mg PO DAILY [facility] Last Admin: 12/28/17 10:25 Dose: 81 mg Clopidogrel Bisulfate (Plavix) 75 mg PO DAILY [facility] Last Admin: 12/28/17 10:24 Dose: 75 mg Docusate Sodium (Colace) 100 mg PO TID [facility] Last Admin: 12/28/17 16:59 Dose: 100 mg Enalapril Maleate (Vasotec) 20 mg PO DAILY [facility] Last Admin: 12/28/17 10:25 Dose: 20 mg Heparin Sodium (Porcine) (Heparin) 5,000 units SC Q8 [facility] Last Admin: 12/28/17 14:59 Dose: 5,000 units Sodium Chloride (Sodium Chloride 0.9%) 1,000 mls @ 100 mls/hr IV .Q10H [facility] Last Admin: 12/28/17 16:14 Dose: 100 mls/hr Morphine Sulfate (Morphine) 2 mg IVP Q4 PRN PRN Reason: Pain, moderate (4-7) Last Admin: 12/27/17 12:02 Dose: 2 mg Moxifloxacin HCl (Avelox) 400 mg PO Q24H [facility] PRN Reason: Protocol Last Admin: 12/28/17 16:13 Dose: 400 mg Multivitamins (Hexavitamin) 1 tab PO DAILY [facility] Last Admin: 12/28/17 10:24 Dose: 1 tab Niacin (Niacin) 250 mg PO HS [facility] Last Admin: 12/27/17 21:27 Dose: 250 mg Dzjil-3-Otzw Ethyl Esters (Lovaza) 1 gm PO DAILY [facility] Last Admin: 12/28/17 10:25 Dose: 1 gm Oxycodone HCl (Oxycontin Extended Release Tab) 30 mg PO Q12 [facility] Last Admin: 12/28/17 10:24 Dose: 30 mg Polyethylene Glycol (Miralax) 17 gm PO DAILY [facility] Last Admin: 12/28/17 10:25 Dose: Not Given Pregabalin (Lyrica) 75 mg PO DAILY [facility] Last Admin: 12/28/17 10:25 Dose: 75 mg Saccharomyces Boulardii (Florastor) 250 mg PO BID [facility] Last Admin: 12/28/17 16:59 Dose: 250 mg Zinc Sulfate (Zinc Sulfate 220 Mg Cap) 220 mg PO DAILY [facility] Last Admin: 12/28/17 10:25 Dose: 220 mg - Labs Labs: 12/28/17 06:45 12/28/17 06:45 PT 13.3 SECONDS (9.7-12.2) H 12/24/17 07:20 INR 1.2 12/24/17 07:20 APTT 33 SECONDS (21-34) 12/24/17 07:20 Attending/Attestation - Attestation I have personally seen and examined this patient.: Yes I have fully participated in the care of the patient.: Yes I have reviewed all pertinent clinical information, including history, physical exam and plan: Yes Notes (Text): 12/28/17 19:02 Patient was seen and examined at 5:30 PM Exam, assessment and plan were gone over with the resident. Spoke with Son Kameron who was at bedside and who helped to translate. NO complaints upon FULL ROS. Also on Exam Bilateral LE 2+ pitting edema (chronic as per son Kameron) Vascular Surgery Team to plan for Right Leg Graft at the site of wound (to which daily Xeroform dressings are being applied Michael Moody D.O.
[2017-12-29] MEDS: Sodium Chloride 0.9% 1,000 ML IV SCH (04:16)
[2017-12-29 08:20] LABS: BASO % 0.3 % (0.0-2.0); EOS # 0.2 K/uL (0.0-0.7); EOS % 1.8 % (0.0-4.0); HEMOGLOBIN 9.4 g/dL (11.0-16.0); LYMPH # 2.5 K/uL (1.0-4.3); LYMPH % 20.5 % (20.0-40.0); MEAN CELL VOLUME 91.5 fL (81.0-99.0); MEAN CORPUSCULAR HEMOGLOBIN 30.7 pg (27.0-31.0); MEAN CORPUSCULAR HGB CONC 33.5 g/dL (33.0-37.0); MEAN PLATELET VOLUME 8.5 fL (7.2-11.7); MONO # 0.9 K/uL (0.0-0.8); MONO % 7.2 % (0.0-10.0); NEUT # 8.6 K/uL (1.8-7.0); NEUT % 70.2 % (50.0-75.0); NRBC % 0.1 % (0.0-2.0); RBC 3.08 Mil/uL (3.80-5.20); RED CELL DISTRIBUTION WIDTH 15.5 % (11.5-14.5); WHITE BLOOD COUNT 12.2 K/uL (4.8-10.8)
[2017-12-29 08:34] LABS: ALB/GLOB RATIO 0.9 (1.0-2.1); ALBUMIN 2.8 g/dL (3.5-5.0); ALT/SGPT 30 U/L (9-52); AST/SGOT 38 U/L (14-36); BLOOD UREA NITROGEN 13 mg/dL (7-17); CALCIUM 8.2 mg/dl (8.6-10.4); GFR AFRICAN-AMERICAN > 60; GFR NON-AFRICAN AMERICAN > 60
--- NOTE | 2017-12-29 09:00 | CP.PCM.PN ---
Subjective - Date & Time of Evaluation Date of Evaluation: 12/29/17 Time of Evaluation: 08:58 - Subjective Subjective: difficult situation with guarded prognosis graft is open and palpable but graft skirts large wound 3x4 cm on lower calf,, tissue is not ready for grafting the bypass graft could occlude at any time, and lead to limb loss bypass could bleed and lead to limb loss or family and patient aware of situation Objective - Vital Signs/Intake and Output Vital Signs (last 24 hours): Temp Pulse Resp BP Pulse Ox 98.3 F 95 H 18 143/63 100 12/29/17 07:35 12/29/17 07:35 12/29/17 07:35 12/29/17 07:35 12/29/17 07:35 Intake and Output: 12/29/17 12/29/17 06:59 18:59 Intake Total 1600 Balance 1600 - Medications Medications: Current Medications Acetaminophen (Tylenol 325mg Tab) 650 mg PO Q6 PRN PRN Reason: temperature 100.4F and above Last Admin: 12/25/17 00:57 Dose: 650 mg Albuterol (Ventolin Hfa 90 Mcg/Actuation (8 G)) 2 puff IH RBID [facility] Last Admin: 12/28/17 22:03 Dose: Not Given Ascorbic Acid (Vitamin C 500 Mg Tab) 1,000 mg PO DAILY [facility] Last Admin: 12/28/17 10:27 Dose: 1,000 mg Aspirin (Ecotrin) 81 mg PO DAILY [facility] Last Admin: 12/28/17 10:25 Dose: 81 mg Clopidogrel Bisulfate (Plavix) 75 mg PO DAILY [facility] Last Admin: 12/28/17 10:24 Dose: 75 mg Docusate Sodium (Colace) 100 mg PO TID [facility] Last Admin: 12/28/17 16:59 Dose: 100 mg Enalapril Maleate (Vasotec) 20 mg PO DAILY [facility] Last Admin: 12/28/17 10:25 Dose: 20 mg Heparin Sodium (Porcine) (Heparin) 5,000 units SC Q8 [facility] Last Admin: 12/29/17 05:32 Dose: 5,000 units Sodium Chloride (Sodium Chloride 0.9%) 1,000 mls @ 100 mls/hr IV .Q10H [facility] Last Admin: 12/29/17 04:16 Dose: 100 mls/hr Morphine Sulfate (Morphine) 2 mg IVP Q4 PRN PRN Reason: Pain, moderate (4-7) Last Admin: 12/29/17 07:46 Dose: 2 mg Moxifloxacin HCl (Avelox) 400 mg PO Q24H [facility] PRN Reason: Protocol Last Admin: 12/28/17 16:13 Dose: 400 mg Multivitamins (Hexavitamin) 1 tab PO DAILY [facility] Last Admin: 12/28/17 10:24 Dose: 1 tab Niacin (Niacin) 250 mg PO HS [facility] Last Admin: 12/28/17 21:24 Dose: 250 mg [id number]-[id number] Ethyl Esters (Lovaza) 1 gm PO DAILY [facility] Last Admin: 12/28/17 10:25 Dose: 1 gm Oxycodone HCl (Oxycontin Extended Release Tab) 30 mg PO Q12 [facility] Last Admin: 12/28/17 21:24 Dose: 30 mg Polyethylene Glycol (Miralax) 17 gm PO DAILY [facility] Last Admin: 12/28/17 10:25 Dose: Not Given Pregabalin (Lyrica) 75 mg PO DAILY [facility] Last Admin: 12/28/17 10:25 Dose: 75 mg Saccharomyces Boulardii (Florastor) 250 mg PO BID [facility] Last Admin: 12/28/17 16:59 Dose: 250 mg Zinc Sulfate (Zinc Sulfate 220 Mg Cap) 220 mg PO DAILY [facility] Last Admin: 12/28/17 10:25 Dose: 220 mg - Labs Labs: 12/29/17 08:13 12/29/17 08:13 PT 13.3 SECONDS (9.7-12.2) H 12/24/17 07:20 INR 1.2 12/24/17 07:20 APTT 33 SECONDS (21-34) 12/24/17 07:20
[2017-12-29] MEDS: Omega-3-Acid Ethyl Esters 1 GM Cap PO SCH (10:15)
[2017-12-29] MEDS: oxyCODONE 10 mg ER Tab (oxyCONTIN) PO SCH ×2 (10:16→21:27)
[2017-12-29] MEDS: Saccharomyces Boulardi 250 mg Cap PO SCH ×2 (10:16→17:12)
[2017-12-29] MEDS: Multiple Vitamins Tab PO SCH (10:21)
[2017-12-29] MEDS: POLYETHYLENE GLYCOL 3350 17 GM/Dose PACKET PO SCH (10:21)
--- NOTE | 2017-12-29 11:09 | CP.PCM.PN ---
Subjective - Date & Time of Evaluation Date of Evaluation: 12/29/17 Time of Evaluation: 11:09 - Subjective Subjective: Podiatry Progress Note - Dr. Macias 82 year old female seen at bedside accompanied by her son for right hallux amputation wound and dorsal foot fluid blisters. Patient is seen in bed resting comfortably. She admits to having pain in the right lower extremity only when her dressing is changed. Denies any overnight events. She currently denies F/C/N /V/CP/SOB Objective - Vital Signs/Intake and Output Vital Signs (last 24 hours): Temp Pulse Resp BP Pulse Ox 98.3 F 95 H 18 138/67 100 12/29/17 07:35 12/29/17 07:35 12/29/17 07:35 12/29/17 10:17 12/29/17 07:35 Intake and Output: 12/29/17 12/29/17 06:59 18:59 Intake Total 1600 Balance 1600 - Medications Medications: Current Medications Acetaminophen (Tylenol 325mg Tab) 650 mg PO Q6 PRN PRN Reason: temperature 100.4F and above Last Admin: 12/25/17 00:57 Dose: 650 mg Albuterol (Ventolin Hfa 90 Mcg/Actuation (8 G)) 2 puff IH RBID [facility] Last Admin: 12/28/17 22:03 Dose: Not Given Ascorbic Acid (Vitamin C 500 Mg Tab) 1,000 mg PO DAILY [facility] Last Admin: 12/29/17 10:20 Dose: 1,000 mg Aspirin (Ecotrin) 81 mg PO DAILY [facility] Last Admin: 12/29/17 10:15 Dose: 81 mg Clopidogrel Bisulfate (Plavix) 75 mg PO DAILY [facility] Last Admin: 12/29/17 10:15 Dose: 75 mg Docusate Sodium (Colace) 100 mg PO TID [facility] Last Admin: 12/29/17 10:15 Dose: 100 mg Enalapril Maleate (Vasotec) 20 mg PO DAILY [facility] Last Admin: 12/29/17 10:17 Dose: 20 mg Heparin Sodium (Porcine) (Heparin) 5,000 units SC Q8 [facility] Last Admin: 12/29/17 05:32 Dose: 5,000 units Sodium Chloride (Sodium Chloride 0.9%) 1,000 mls @ 100 mls/hr IV .Q10H [facility] Last Admin: 12/29/17 04:16 Dose: 100 mls/hr Morphine Sulfate (Morphine) 2 mg IVP Q4 PRN PRN Reason: Pain, moderate (4-7) Last Admin: 12/29/17 07:46 Dose: 2 mg Moxifloxacin HCl (Avelox) 400 mg PO Q24H [facility] PRN Reason: Protocol Last Admin: 12/28/17 16:13 Dose: 400 mg Multivitamins (Hexavitamin) 1 tab PO DAILY [facility] Last Admin: 12/29/17 10:21 Dose: 1 tab Niacin (Niacin) 250 mg PO HS [facility] Last Admin: 12/28/17 21:24 Dose: 250 mg Trzat-7-Helk Ethyl Esters (Lovaza) 1 gm PO DAILY [facility] Last Admin: 12/29/17 10:15 Dose: 1 gm Oxycodone HCl (Oxycontin Extended Release Tab) 30 mg PO Q12 [facility] Last Admin: 12/29/17 10:16 Dose: 30 mg Polyethylene Glycol (Miralax) 17 gm PO DAILY [facility] Last Admin: 12/29/17 10:21 Dose: Not Given Pregabalin (Lyrica) 75 mg PO DAILY [facility] Last Admin: 12/29/17 10:15 Dose: 75 mg Saccharomyces Boulardii (Florastor) 250 mg PO BID [facility] Last Admin: 12/29/17 10:16 Dose: 250 mg Zinc Sulfate (Zinc Sulfate 220 Mg Cap) 220 mg PO DAILY [facility] Last Admin: 12/29/17 10:21 Dose: 220 mg - Labs Labs: 12/29/17 08:13 12/29/17 08:13 PT 13.3 SECONDS (9.7-12.2) H 12/24/17 07:20 INR 1.2 12/24/17 07:20 APTT 33 SECONDS (21-34) 12/24/17 07:20 - Constitutional Appears: Well, Non-toxic, No Acute Distress - Extremities Exam Additional comments: Right lower extremity focused exam: Vasc: DP and PT pulses are palpable 1/4. Temperature runs warm to warm proximal to distal. Localized edema noted to the remaining hallux. Cap refill time to remaining digits: < 3 sec. Derm: Partial thickness wound to hallux amputation site measuring approximately 0.6 x 3.2 cm with fibro-necrotic base, margins stable, no gapping, tunneling or undermining noted. 2nd digit well healed, stable cicatrix noted. No active drainage, no fluctuance, no malodor noted. Several fluid filled blisters noted to dorsum of right foot, transparent in appearance with clear fluid, one with sanguinous fluid. Ortho: 1st and 2nd digit partial amputations noted. Mild tenderness to palpation along right heel. Tenderness to palpation of dorsum of right foot and entirety of right leg. No evidence of deep tissue injury or pre-ulcerative pressure ulcerations. Pedal muscle strength is graded 4/5 in inversion and eversion of leg muscle groups, graded 5/5 in dorsiflexory and plantarflexory leg muscle groups. Neuro: gross and protective sensation diminished - Neurological Exam Neurological Exam: Alert, Awake, Oriented x3 - Psychiatric Exam Psychiatric exam: Normal Affect, Normal Mood Assessment and Plan - Assessment and Plan (Free Text) Assessment: 82 year old female with 1) left hallux post-surgical wound secondary to PAD and 2) fluid filled blisters to right foot Plan: Pt seen and evaluated at bedside Discussed with Dr. Macias Chart, labs, and vitals reviewed - afebrile, WBC 12.2 Local wound care performed to hallux amp site with Grant and CLAUDE per vascular surgery team, posterior leg wound to be left untouched with plans for future skin graft No surgical podiatric intervention indicated at this time Podiatry will continue to follow while in house
--- NOTE | 2017-12-29 15:51 | CP.PCM.PN ---
<Sandrine Welch E - Last Filed: 12/29/17 16:16> Subjective - Date & Time of Evaluation Date of Evaluation: 12/29/17 Time of Evaluation: 06:40 - Subjective Subjective: Medicine progress note ( Dr. Sharon Moody's service) Patient was seen and examined at bedside with son present. Patient reports that she is doing well with no new complaints. Patient is s/p aortofemoral angiogrm via left groin. selective catherization of right femoral artery. angiojet thrombolysis of occluded bypass. balloon angioplasty of proximal anastomosis ( distal sfa). balloon angioplasty of posterior tibial artery. perclose left groin. ceployment of 10x6 viabahn and 7x39 vbx at ruptures proximal anastomsis POD #5. Patient admits to mild pain. Objective - Vital Signs/Intake and Output Vital Signs (last 24 hours): Temp Pulse Resp BP Pulse Ox 98.3 F 95 H 18 138/67 100 12/29/17 07:35 12/29/17 07:35 12/29/17 07:35 12/29/17 10:17 12/29/17 07:35 Intake and Output: 12/29/17 12/29/17 06:59 18:59 Intake Total 1600 Balance 1600 - Medications Medications: Current Medications Acetaminophen (Tylenol 325mg Tab) 650 mg PO Q6 PRN PRN Reason: temperature 100.4F and above Last Admin: 12/25/17 00:57 Dose: 650 mg Albuterol (Ventolin Hfa 90 Mcg/Actuation (8 G)) 2 puff IH RBID [facility] Last Admin: 12/28/17 22:03 Dose: Not Given Ascorbic Acid (Vitamin C 500 Mg Tab) 1,000 mg PO DAILY [facility] Last Admin: 12/29/17 10:20 Dose: 1,000 mg Aspirin (Ecotrin) 81 mg PO DAILY [facility] Last Admin: 12/29/17 10:15 Dose: 81 mg Clopidogrel Bisulfate (Plavix) 75 mg PO DAILY [facility] Last Admin: 12/29/17 10:15 Dose: 75 mg Docusate Sodium (Colace) 100 mg PO TID [facility] Last Admin: 12/29/17 14:33 Dose: 100 mg Enalapril Maleate (Vasotec) 20 mg PO DAILY [facility] Last Admin: 12/29/17 10:17 Dose: 20 mg Heparin Sodium (Porcine) (Heparin) 5,000 units SC Q8 [facility] Last Admin: 12/29/17 14:33 Dose: 5,000 units Sodium Chloride (Sodium Chloride 0.9%) 1,000 mls @ 100 mls/hr IV .Q10H [facility] Last Admin: 12/29/17 04:16 Dose: 100 mls/hr Morphine Sulfate (Morphine) 2 mg IVP Q4 PRN PRN Reason: Pain, moderate (4-7) Last Admin: 12/29/17 07:46 Dose: 2 mg Moxifloxacin HCl (Avelox) 400 mg PO Q24H [facility] PRN Reason: Protocol Last Admin: 12/28/17 16:13 Dose: 400 mg Multivitamins (Hexavitamin) 1 tab PO DAILY [facility] Last Admin: 12/29/17 10:21 Dose: 1 tab Niacin (Niacin) 250 mg PO HS [facility] Last Admin: 12/28/17 21:24 Dose: 250 mg [id number] Ethyl Esters (Lovaza) 1 gm PO DAILY [facility] Last Admin: 12/29/17 10:15 Dose: 1 gm Oxycodone HCl (Oxycontin Extended Release Tab) 30 mg PO Q12 [facility] Last Admin: 12/29/17 10:16 Dose: 30 mg Polyethylene Glycol (Miralax) 17 gm PO DAILY [facility] Last Admin: 12/29/17 10:21 Dose: Not Given Pregabalin (Lyrica) 75 mg PO DAILY [facility] Last Admin: 12/29/17 10:15 Dose: 75 mg Saccharomyces Boulardii (Florastor) 250 mg PO BID [facility] Last Admin: 12/29/17 10:16 Dose: 250 mg Zinc Sulfate (Zinc Sulfate 220 Mg Cap) 220 mg PO DAILY [facility] Last Admin: 12/29/17 10:21 Dose: 220 mg - Labs Labs: 12/29/17 08:13 12/29/17 08:13 PT 13.3 SECONDS (9.7-12.2) H 12/24/17 07:20 INR 1.2 12/24/17 07:20 APTT 33 SECONDS (21-34) 12/24/17 07:20 - Constitutional Appears: Well, No Acute Distress - Head Exam Head Exam: ATRAUMATIC, NORMAL INSPECTION - Eye Exam Eye Exam: EOMI, Normal appearance - ENT Exam ENT Exam: Mucous Membranes Moist - Respiratory Exam Respiratory Exam: Clear to Ausculation Bilateral, NORMAL BREATHING PATTERN. absent: Prolonged Expiratory Phase, Rhonchi, Wheezes, Respiratory Distress - Cardiovascular Exam Cardiovascular Exam: REGULAR RHYTHM, +S1, +S2. absent: Murmur - GI/Abdominal Exam GI & Abdominal Exam: Soft, Normal Bowel Sounds. absent: Firm, Guarding, Rigid, Tenderness - Extremities Exam Extremities Exam: Normal Inspection. absent: Calf Tenderness, Pedal Edema - Neurological Exam Neurological Exam: Alert, Awake, Oriented x3 - Psychiatric Exam Psychiatric exam: Normal Affect, Normal Mood - Skin Skin Exam: Normal Color Assessment and Plan (1) Ischemia of right lower extremity Assessment & Plan: Consultations: Vascular Dr. Mohamud Mann---> Help appreciated * All management as per vascular surgery. * s/p aortofemoral angiogrm via left groin. selective catherization of right femoral artery. angiojet thrombolysis of occluded bypass. balloon angioplasty of proximal anastomosis ( distal sfa). balloon angioplasty of posterior tibial artery. perclose left groin. ceployment of 10x6 viabahn and 7x39 vbx at ruptures proximal anastomsis POD # 4. Diagnostic imaging: Arterial duplex right lower extremity (12/21/17): Occuluded right mid superficial femoral to posterior tibial artery bypass graft, anterior tibial and dorsalis pedis arteries. 30-49% stenosis of the right proximal superficial femoral artery Abdominal Angiography (12/21/17): Right femoral/popliteal arteries: Mild atherosclerotic disease of common femoral artery. [id number] atherosclerotic disease of superficial femoral artery. Occlusion of popliteal artery. Right calf/foot arteries: Reconstituted diminished, attenuated intermittent flow to anterior tibial, posterior tibial, and peroneal arteries. 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 Amputation second digit to level shaft of proximal phalanx. F/u CT angiogram results Medications: * ASA 81mg PO daily * Plavix 75mg PO daily * Lyrica 75mg PO daily * Morphine 2mg IV q4h prn * Percocet 1 tab PO Q4H prn and 2 tab PO q4h prn (Pain control) * Oxycontin 30mg PO Q12H Status: Acute (2) Hypertension Assessment & Plan: Controlled with medication Continue home medication: * Vasotec 20mg PO daily Status: Acute (3) Hypertriglyceridemia Assessment & Plan: Continue home medication: * Lovaza 1 tab po daily Lipid Panel (12/22/17): * TGL:125, Cholesterol:128, LDL:72 and HDL:27 Status: Acute (4) Low HDL (under 40) Assessment & Plan: Medication: Niacin 250mg PO HS Status: Acute (5) Ulcer of right lower leg Assessment & Plan: Podiatry: Dr. Macias * Management as per recommendation General surgery, Dr. Mallory * Plans for possible skin graft Wound Culture: + Klebsiella Oxytoca and Corynebacterium Species Medications/Management: * Avelox 400mg PO q12h (Switched to avelox from cipro for better coverage) * Florastor 250mg PO BID * Vitamin C 1,000mg PO daily * Zinc 220mg PO daily * Wound Care Status: Acute (6) Constipation Assessment & Plan: Resolving Miralax 17gm PO Daily Received enema x2 Status: Acute (7) Prophylactic measure Assessment & Plan: GI: Pepcid 20mg PO daily DVT: SCDs on left extremity. Heparin 5,000 units Q8H Multivitamins 1 tab PO daily Disposition: Plans for skin graft as per vascular surgery before discharge All plans and management discussed with Dr. Sharon Moody Status: Acute <Michael Moody - Last Filed: 12/29/17 20:15> Objective - Vital Signs/Intake and Output Vital Signs (last 24 hours): Temp Pulse Resp BP Pulse Ox 98.6 F 93 H 20 140/78 95 12/29/17 16:03 12/29/17 16:03 12/29/17 16:03 12/29/17 16:03 12/29/17 16:03 - Medications Medications: Current Medications Acetaminophen (Tylenol 325mg Tab) 650 mg PO Q6 PRN PRN Reason: temperature 100.4F and above Last Admin: 12/25/17 00:57 Dose: 650 mg Albuterol (Ventolin Hfa 90 Mcg/Actuation (8 G)) 2 puff IH RBID [facility] Last Admin: 12/28/17 22:03 Dose: Not Given Ascorbic Acid (Vitamin C 500 Mg Tab) 1,000 mg PO DAILY [facility] Last Admin: 12/29/17 10:20 Dose: 1,000 mg Aspirin (Ecotrin) 81 mg PO DAILY [facility] Last Admin: 12/29/17 10:15 Dose: 81 mg Clopidogrel Bisulfate (Plavix) 75 mg PO DAILY [facility] Last Admin: 12/29/17 10:15 Dose: 75 mg Docusate Sodium (Colace) 100 mg PO TID [facility] Last Admin: 12/29/17 17:11 Dose: 100 mg Enalapril Maleate (Vasotec) 20 mg PO DAILY [facility] Last Admin: 12/29/17 10:17 Dose: 20 mg Heparin Sodium (Porcine) (Heparin) 5,000 units SC Q8 [facility] Last Admin: 12/29/17 14:33 Dose: 5,000 units Morphine Sulfate (Morphine) 2 mg IVP Q4 PRN PRN Reason: Pain, moderate (4-7) Last Admin: 12/29/17 07:46 Dose: 2 mg Moxifloxacin HCl (Avelox) 400 mg PO Q24H [facility] PRN Reason: Protocol Last Admin: 12/29/17 17:12 Dose: 400 mg Multivitamins (Hexavitamin) 1 tab PO DAILY [facility] Last Admin: 12/29/17 10:21 Dose: 1 tab Niacin (Niacin) 250 mg PO HS [facility] Last Admin: 12/28/17 21:24 Dose: 250 mg [id number] Ethyl Esters (Lovaza) 1 gm PO DAILY [facility] Last Admin: 12/29/17 10:15 Dose: 1 gm Oxycodone HCl (Oxycontin Extended Release Tab) 30 mg PO Q12 [facility] Last Admin: 12/29/17 10:16 Dose: 30 mg Polyethylene Glycol (Miralax) 17 gm PO DAILY [facility] Last Admin: 12/29/17 10:21 Dose: Not Given Pregabalin (Lyrica) 75 mg PO DAILY [facility] Last Admin: 12/29/17 10:15 Dose: 75 mg Saccharomyces Boulardii (Florastor) 250 mg PO BID [facility] Last Admin: 12/29/17 17:12 Dose: 250 mg Zinc Sulfate (Zinc Sulfate 220 Mg Cap) 220 mg PO DAILY [facility] Last Admin: 12/29/17 10:21 Dose: 220 mg - Labs Labs: 12/29/17 08:13 12/29/17 08:13 PT 13.3 SECONDS (9.7-12.2) H 12/24/17 07:20 INR 1.2 12/24/17 07:20 APTT 33 SECONDS (21-34) 12/24/17 07:20 Attending/Attestation - Attestation I have personally seen and examined this patient.: Yes I have fully participated in the care of the patient.: Yes I have reviewed all pertinent clinical information, including history, physical exam and plan: Yes Notes (Text): 12/29/17 20:12 Patient was seen and examined at 5 PM with Jed Ferrara present. Exam, assessment and plan were gone over with the resident. Spoke with Vascular Surgeon Dr. Mallory who explained that the Right Leg needs to be elevated at all times while seated or laying to help reduce edema in this extremity. He would does not want dressings disturbed for fear of fibrous tissue /bypass being disturbed. This was explained to Jed Ferrara. Dr. aMllory is planning for skin graft to the Right Medial Lower Leg Ulcer once he feels there has been sufficient healing in this area. Cotinue the Avelox for a total of 14 days. Michael Moody D.O.
[2017-12-30 07:16] LABS: ALB/GLOB RATIO 0.9 (1.0-2.1); ALBUMIN 2.6 g/dL (3.5-5.0); ALT/SGPT 27 U/L (9-52); AST/SGOT 46 U/L (14-36); BLOOD UREA NITROGEN 16 mg/dL (7-17); CALCIUM 7.9 mg/dl (8.6-10.4); GFR AFRICAN-AMERICAN > 60; GFR NON-AFRICAN AMERICAN > 60
[2017-12-30] MEDS ORDERED: Albuterol-Ipratrop 3 mg / 0.5 (3 ml) UD INH STA (07:20)
[2017-12-30 07:21] LABS: BASO % 0.2 % (0.0-2.0); EOS # 0.1 K/uL (0.0-0.7); EOS % 1.2 % (0.0-4.0); HEMOGLOBIN 9.1 g/dL (11.0-16.0); LYMPH # 1.5 K/uL (1.0-4.3); LYMPH % 12.8 % (20.0-40.0); MEAN CELL VOLUME 91.2 fL (81.0-99.0); MEAN CORPUSCULAR HEMOGLOBIN 31.2 pg (27.0-31.0); MEAN CORPUSCULAR HGB CONC 34.3 g/dL (33.0-37.0); MEAN PLATELET VOLUME 8.5 fL (7.2-11.7); MONO # 0.7 K/uL (0.0-0.8); MONO % 6.1 % (0.0-10.0); NEUT # 9.5 K/uL (1.8-7.0); NEUT % 79.7 % (50.0-75.0); RBC 2.93 Mil/uL (3.80-5.20); RED CELL DISTRIBUTION WIDTH 15.2 % (11.5-14.5); WHITE BLOOD COUNT 11.9 K/uL (4.8-10.8)
[2017-12-30] MEDS: Albuterol-Ipratrop 3 mg / 0.5 (3 ml) UD INH SCH ×3 (07:50→19:38)
[2017-12-30 08:57] LABS: ARTERIAL BLOOD GAS HCO3 24.5 mmol/L (21-28); ARTERIAL BLOOD GAS PCO2 33 mm/Hg (35-45); ARTERIAL BLOOD GAS PH 7.45 (7.35-7.45); ARTERIAL BLOOD GAS PO2 69 mm/Hg (80-100); ARTERIAL BLOOD GAS TCO2 23.9 mmol/L (22-28)
--- NOTE | 2017-12-30 09:02 | RAD ---
Chest x-ray single frontal view History: Shortness of breath. Comparison: 12/24/2017 Findings: Moderate to severe venous congestion with bibasilar airspace opacities and small bilateral pleural effusions. Right hilar prominence. Cardiomegaly. Calcification at the aortic knob. Curvilinear somewhat nodular calcification projecting over the medial right upper lung zone. Clinical correlation. Biapical pleural thickening with upper lobe granulomatous changes. Degenerative changes in the spine and shoulders. Impression: Moderate to severe venous congestion with bibasilar airspace opacities and small bilateral pleural effusions. Right hilar prominence. Cardiomegaly. Calcification at the aortic knob. Curvilinear somewhat nodular calcification projecting over the medial right upper lung zone. Clinical correlation. Biapical pleural thickening with upper lobe granulomatous changes.
[2017-12-30] MEDS ORDERED: Potassium Chloride 20 mEq ER Tab PO ONE (09:03)
[2017-12-30] MEDS: POLYETHYLENE GLYCOL 3350 17 GM/Dose PACKET PO SCH (09:43)
[2017-12-30] MEDS: Multiple Vitamins Tab PO SCH (09:44)
[2017-12-30] MEDS: Omega-3-Acid Ethyl Esters 1 GM Cap PO SCH (09:44)
[2017-12-30] MEDS: Saccharomyces Boulardi 250 mg Cap PO SCH ×2 (09:44→17:25)
[2017-12-30] MEDS: oxyCODONE 10 mg ER Tab (oxyCONTIN) PO SCH (09:52)
--- NOTE | 2017-12-30 10:40 | CP.PCM.PN ---
Subjective - Date & Time of Evaluation Date of Evaluation: 12/30/17 Time of Evaluation: 10:40 - Subjective Subjective: Podiatry Progress Note - Dr. Macias 82 year old female seen at bedside accompanied by her son for right hallux amputation wound and dorsal foot fluid blisters. Patient is seen in bed resting comfortably. Denies any overnight events. She currently denies F/C/N/V/CP/SOB Objective - Vital Signs/Intake and Output Vital Signs (last 24 hours): Temp Pulse Resp BP Pulse Ox 98.4 F 97 H 20 137/80 96 12/30/17 07:55 12/30/17 07:55 12/30/17 07:55 12/30/17 10:35 12/30/17 07:55 Intake and Output: 12/30/17 12/30/17 06:59 18:59 Intake Total 500 Output Total 100 Balance 400 - Medications Medications: Current Medications Acetaminophen (Tylenol 325mg Tab) 650 mg PO Q6 PRN PRN Reason: temperature 100.4F and above Last Admin: 12/25/17 00:57 Dose: 650 mg Albuterol (Ventolin Hfa 90 Mcg/Actuation (8 G)) 2 puff IH RBID [facility] Last Admin: 12/28/17 22:03 Dose: Not Given Albuterol/Ipratropium (Duoneb 3 Mg/0.5 Mg (3 Ml) Ud) 3 ml INH RQ6 [facility] Ascorbic Acid (Vitamin C 500 Mg Tab) 1,000 mg PO DAILY [facility] Last Admin: 12/29/17 10:20 Dose: 1,000 mg Aspirin (Ecotrin) 81 mg PO DAILY [facility] Last Admin: 12/30/17 09:44 Dose: 81 mg Clopidogrel Bisulfate (Plavix) 75 mg PO DAILY [facility] Last Admin: 12/30/17 09:44 Dose: 75 mg Docusate Sodium (Colace) 100 mg PO TID [facility] Last Admin: 12/30/17 09:44 Dose: 100 mg Enalapril Maleate (Vasotec) 20 mg PO DAILY [facility] Last Admin: 12/30/17 09:44 Dose: 20 mg Heparin Sodium (Porcine) (Heparin) 5,000 units SC Q8 [facility] Last Admin: 12/30/17 05:30 Dose: 5,000 units Morphine Sulfate (Morphine) 2 mg IVP Q4 PRN PRN Reason: Pain, moderate (4-7) Last Admin: 12/29/17 23:57 Dose: 2 mg Moxifloxacin HCl (Avelox) 400 mg PO Q24H [facility] PRN Reason: Protocol Last Admin: 12/29/17 17:12 Dose: 400 mg Multivitamins (Hexavitamin) 1 tab PO DAILY [facility] Last Admin: 12/30/17 09:44 Dose: 1 tab Niacin (Niacin) 250 mg PO HS [facility] Last Admin: 12/29/17 21:26 Dose: 250 mg [id number] Ethyl Esters (Lovaza) 1 gm PO DAILY [facility] Last Admin: 12/30/17 09:44 Dose: 1 gm Oxycodone HCl (Oxycontin Extended Release Tab) 30 mg PO Q12 [facility] Last Admin: 12/30/17 09:52 Dose: 30 mg Polyethylene Glycol (Miralax) 17 gm PO DAILY [facility] Last Admin: 12/30/17 09:43 Dose: 17 gm Pregabalin (Lyrica) 75 mg PO DAILY [facility] Last Admin: 12/30/17 09:45 Dose: 75 mg Saccharomyces Boulardii (Florastor) 250 mg PO BID [facility] Last Admin: 12/30/17 09:44 Dose: 250 mg Fluticasone/Salmeterol (Advair Diskus 500/50) 1 puff INH RQ12 [facility] Zinc Sulfate (Zinc Sulfate 220 Mg Cap) 220 mg PO DAILY [facility] Last Admin: 12/30/17 09:45 Dose: 220 mg - Labs Labs: 12/30/17 06:28 12/30/17 06:28 PT 13.3 SECONDS (9.7-12.2) H 12/24/17 07:20 INR 1.2 12/24/17 07:20 APTT 33 SECONDS (21-34) 12/24/17 07:20 - Constitutional Appears: Well, Non-toxic, No Acute Distress - Extremities Exam Additional comments: Right lower extremity focused exam: Vasc: DP and PT pulses are palpable 1/4. Temperature runs warm to warm proximal to distal. Localized edema noted to the remaining hallux. Cap refill time to remaining digits: < 3 sec. Derm: Partial thickness wound to hallux amputation site measuring approximately 0.6 x 3.2 cm with necrotic base, margins stable, no gapping, tunneling or undermining noted. 2nd digit well healed, stable cicatrix noted. No active drainage, no fluctuance, no malodor noted. Several fluid filled blisters noted to dorsum of right foot, transparent in appearance with clear fluid, one with sanguinous fluid. Ortho: 1st and 2nd digit partial amputations noted. Mild tenderness to palpation along right heel. Tenderness to palpation of dorsum of right foot and entirety of right leg. No evidence of deep tissue injury or pre-ulcerative pressure ulcerations. Pedal muscle strength is graded 4/5 in inversion and eversion of leg muscle groups, graded 5/5 in dorsiflexory and plantarflexory leg muscle groups. Neuro: gross and protective sensation diminished - Neurological Exam Neurological Exam: Alert, Awake, Oriented x3 - Psychiatric Exam Psychiatric exam: Normal Affect, Normal Mood Assessment and Plan - Assessment and Plan (Free Text) Assessment: 82 year old female with 1) left hallux post-surgical wound secondary to PAD and 2) fluid filled blisters to right foot Plan: Pt seen and evaluated at bedside Discussed with Dr. Macias Chart, labs, and vitals reviewed - afebrile, WBC 11.9 Local wound care performed to hallux amp site with Grant and CLAUDE per vascular surgery team, posterior leg wound to be left untouched with plans for future skin graft No surgical podiatric intervention indicated at this time Patient to follow up with Dr. Macias upon d/c Podiatry will continue to follow while in house
--- NOTE | 2017-12-30 13:15 | CP.PCM.PN ---
<YuriNighatwaldemar Tarango - Last Filed: 12/30/17 17:09> Subjective - Date & Time of Evaluation Date of Evaluation: 12/30/17 Time of Evaluation: 07:10 - Subjective Subjective: Medicine progress note ( Dr. Sharon Moody's service) Patient was seen and examined at bedside with son present. Patient reports that she is doing well. Patient is s/p aortofemoral angiogrm via left groin. selective catherization of right femoral artery. angiojet thrombolysis of occluded bypass. balloon angioplasty of proximal anastomosis ( distal sfa). balloon angioplasty of posterior tibial artery. perclose left groin. ceployment of 10x6 viabahn and 7x39 vbx at ruptures proximal anastomsis POD #6. Patient continues to admit to moderate pain,. In addition, patient was found to be short of breath and mild expiratory wheezes this morning, therefore, chest x- ray, ABG and duonebs was given stat. Objective - Vital Signs/Intake and Output Vital Signs (last 24 hours): Temp Pulse Resp BP Pulse Ox 98.4 F 97 H 20 137/80 96 12/30/17 07:55 12/30/17 07:55 12/30/17 07:55 12/30/17 10:35 12/30/17 07:55 Intake and Output: 12/30/17 12/30/17 06:59 18:59 Intake Total 500 Output Total 100 Balance 400 - Medications Medications: Current Medications Acetaminophen (Tylenol 325mg Tab) 650 mg PO Q6 PRN PRN Reason: temperature 100.4F and above Last Admin: 12/25/17 00:57 Dose: 650 mg Albuterol (Ventolin Hfa 90 Mcg/Actuation (8 G)) 2 puff IH RBID [facility] Last Admin: 12/28/17 22:03 Dose: Not Given Albuterol/Ipratropium (Duoneb 3 Mg/0.5 Mg (3 Ml) Ud) 3 ml INH RQ6 [facility] Ascorbic Acid (Vitamin C 500 Mg Tab) 1,000 mg PO DAILY [facility] Last Admin: 12/29/17 10:20 Dose: 1,000 mg Aspirin (Ecotrin) 81 mg PO DAILY [facility] Last Admin: 12/30/17 09:44 Dose: 81 mg Clopidogrel Bisulfate (Plavix) 75 mg PO DAILY [facility] Last Admin: 12/30/17 09:44 Dose: 75 mg Docusate Sodium (Colace) 100 mg PO TID [facility] Last Admin: 12/30/17 09:44 Dose: 100 mg Enalapril Maleate (Vasotec) 20 mg PO DAILY [facility] Last Admin: 12/30/17 09:44 Dose: 20 mg Heparin Sodium (Porcine) (Heparin) 5,000 units SC Q8 [facility] Last Admin: 12/30/17 05:30 Dose: 5,000 units Morphine Sulfate (Morphine) 2 mg IVP Q4 PRN PRN Reason: Pain, moderate (4-7) Last Admin: 12/29/17 23:57 Dose: 2 mg Moxifloxacin HCl (Avelox) 400 mg PO Q24H [facility] PRN Reason: Protocol Last Admin: 12/29/17 17:12 Dose: 400 mg Multivitamins (Hexavitamin) 1 tab PO DAILY [facility] Last Admin: 12/30/17 09:44 Dose: 1 tab Niacin (Niacin) 250 mg PO HS [facility] Last Admin: 12/29/17 21:26 Dose: 250 mg Datdw-4-Pclp Ethyl Esters (Lovaza) 1 gm PO DAILY [facility] Last Admin: 12/30/17 09:44 Dose: 1 gm Oxycodone HCl (Oxycontin Extended Release Tab) 30 mg PO Q12 [facility] Last Admin: 12/30/17 09:52 Dose: 30 mg Polyethylene Glycol (Miralax) 17 gm PO DAILY [facility] Last Admin: 12/30/17 09:43 Dose: 17 gm Pregabalin (Lyrica) 75 mg PO DAILY [facility] Last Admin: 12/30/17 09:45 Dose: 75 mg Saccharomyces Boulardii (Florastor) 250 mg PO BID [facility] Last Admin: 12/30/17 09:44 Dose: 250 mg Fluticasone/Salmeterol (Advair Diskus 500/50) 1 puff INH RQ12 [facility] Zinc Sulfate (Zinc Sulfate 220 Mg Cap) 220 mg PO DAILY [facility] Last Admin: 12/30/17 09:45 Dose: 220 mg - Labs Labs: 12/30/17 06:28 12/30/17 06:28 PT 13.3 SECONDS (9.7-12.2) H 12/24/17 07:20 INR 1.2 12/24/17 07:20 APTT 33 SECONDS (21-34) 12/24/17 07:20 - Constitutional Appears: Well, No Acute Distress - Head Exam Head Exam: ATRAUMATIC, NORMAL INSPECTION - Eye Exam Eye Exam: EOMI, Normal appearance - ENT Exam ENT Exam: Mucous Membranes Moist - Respiratory Exam Respiratory Exam: Wheezes, NORMAL BREATHING PATTERN - Cardiovascular Exam Cardiovascular Exam: REGULAR RHYTHM, +S1, +S2 - GI/Abdominal Exam GI & Abdominal Exam: Soft, Normal Bowel Sounds. absent: Firm, Guarding, Rigid, Tenderness - Extremities Exam Additional comments: s/p aortofemoral angiogrm via left groin. selective catherization of right femoral artery. angiojet thrombolysis of occluded bypass. balloon angioplasty of proximal anastomosis ( distal sfa). balloon angioplasty of posterior tibial artery. perclose left groin. ceployment of 10x6 viabahn and 7x39 vbx at ruptures proximal anastomsis POD #6. Right leg extremity dressing clean, dry and intact - Neurological Exam Neurological Exam: Alert, Awake - Psychiatric Exam Psychiatric exam: Normal Affect - Skin Skin Exam: Normal Color Assessment and Plan (1) Ischemia of right lower extremity Assessment & Plan: Consultations: Vascular [place], Dr. Mallory---> Help appreciated * All management as per vascular surgery. * s/p aortofemoral angiogrm via left groin. selective catherization of right femoral artery. angiojet thrombolysis of occluded bypass. balloon angioplasty of proximal anastomosis ( distal sfa). balloon angioplasty of posterior tibial artery. perclose left groin. ceployment of 10x6 viabahn and 7x39 vbx at ruptures proximal anastomsis POD # 4. Diagnostic imaging: Arterial duplex right lower extremity (12/21/17): Occuluded right mid superficial femoral to posterior tibial artery bypass graft, anterior tibial and dorsalis pedis arteries. 30-49% stenosis of the right proximal superficial femoral artery Abdominal Angiography (12/21/17): Right femoral/popliteal arteries: Mild atherosclerotic disease of common femoral artery. [id number] atherosclerotic disease of superficial femoral artery. Occlusion of popliteal artery. Right calf/foot arteries: Reconstituted diminished, attenuated intermittent flow to anterior tibial, posterior tibial, and peroneal arteries. 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 Amputation second digit to level shaft of proximal phalanx. F/u CT angiogram results Medications: * ASA 81mg PO daily * Plavix 75mg PO daily * Lyrica 75mg PO daily * Morphine 2mg IV q4h prn * Percocet 1 tab PO Q4H prn and 2 tab PO q4h prn (Pain control) * Oxycontin 30mg PO Q12H Status: Acute (2) Hypertension Assessment & Plan: Controlled with medication Continue home medication: * Vasotec 20mg PO daily Status: Acute (3) Hypertriglyceridemia Assessment & Plan: Continue home medication: * Lovaza 1 tab po daily Lipid Panel (12/22/17): * TGL:125, Cholesterol:128, LDL:72 and HDL:27 Status: Acute (4) Low HDL (under 40) Assessment & Plan: Medication: Niacin 250mg PO HS Status: Acute (5) Ulcer of right lower leg Assessment & Plan: Podiatry: Dr. Macias * Management as per recommendation General surgery, Dr. Mallory * Plans for possible skin graft Wound Culture: + Klebsiella Oxytoca and Corynebacterium Species Medications/Management: * Avelox 400mg PO q12h (Switched to avelox from cipro for better coverage) * Florastor 250mg PO BID * Vitamin C 1,000mg PO daily * Zinc 220mg PO daily * Wound Care Status: Acute (6) Constipation Assessment & Plan: Resolving Miralax 17gm PO Daily Received enema x2 Status: Acute (7) Prophylactic measure Assessment & Plan: GI: Pepcid 20mg PO daily DVT: SCDs on left extremity. Heparin 5,000 units Q8H Multivitamins 1 tab PO daily Disposition: Plans for skin graft as per vascular surgery before discharge All plans and management discussed with Dr. Sharon Moody Status: Acute <Michael Moody - Last Filed: 12/30/17 18:49> Objective - Vital Signs/Intake and Output Vital Signs (last 24 hours): Temp Pulse Resp BP Pulse Ox 98.9 F 98 H 18 124/71 98 12/30/17 17:47 12/30/17 17:47 12/30/17 17:47 12/30/17 17:47 12/30/17 17:47 Intake and Output: 12/30/17 12/30/17 06:59 18:59 Intake Total 500 500 Output Total 100 1550 Balance 400 -1050 - Medications Medications: Current Medications Acetaminophen (Tylenol 325mg Tab) 650 mg PO Q6 PRN PRN Reason: temperature 100.4F and above Last Admin: 12/25/17 00:57 Dose: 650 mg Albuterol (Ventolin Hfa 90 Mcg/Actuation (8 G)) 2 puff IH RBID [facility] Last Admin: 12/28/17 22:03 Dose: Not Given Albuterol/Ipratropium (Duoneb 3 Mg/0.5 Mg (3 Ml) Ud) 3 ml INH RQ6 [facility] Last Admin: 12/30/17 13:41 Dose: 3 ml Ascorbic Acid (Vitamin C 500 Mg Tab) 1,000 mg PO DAILY [facility] Last Admin: 12/30/17 10:30 Dose: 1,000 mg Aspirin (Ecotrin) 81 mg PO DAILY [facility] Last Admin: 12/30/17 09:44 Dose: 81 mg Clopidogrel Bisulfate (Plavix) 75 mg PO DAILY [facility] Last Admin: 12/30/17 09:44 Dose: 75 mg Docusate Sodium (Colace) 100 mg PO TID [facility] Last Admin: 12/30/17 17:26 Dose: 100 mg Enalapril Maleate (Vasotec) 20 mg PO DAILY [facility] Last Admin: 12/30/17 09:44 Dose: 20 mg Heparin Sodium (Porcine) (Heparin) 5,000 units SC Q8 [facility] Last Admin: 12/30/17 13:49 Dose: 5,000 units Morphine Sulfate (Morphine) 2 mg IVP Q4 PRN PRN Reason: Pain, moderate (4-7) Last Admin: 12/29/17 23:57 Dose: 2 mg Moxifloxacin HCl (Avelox) 400 mg PO Q24H [facility] PRN Reason: Protocol Last Admin: 12/30/17 17:26 Dose: 400 mg Multivitamins (Hexavitamin) 1 tab PO DAILY [facility] Last Admin: 12/30/17 09:44 Dose: 1 tab Niacin (Niacin) 250 mg PO HS [facility] Last Admin: 12/29/17 21:26 Dose: 250 mg Yqlce-7-Tpgr Ethyl Esters (Lovaza) 1 gm PO DAILY [facility] Last Admin: 12/30/17 09:44 Dose: 1 gm Polyethylene Glycol (Miralax) 17 gm PO DAILY [facility] Last Admin: 12/30/17 09:43 Dose: 17 gm Pregabalin (Lyrica) 75 mg PO DAILY [facility] Last Admin: 12/30/17 09:45 Dose: 75 mg Saccharomyces Boulardii (Florastor) 250 mg PO BID [facility] Last Admin: 12/30/17 17:25 Dose: 250 mg Fluticasone/Salmeterol (Advair Diskus 500/50) 1 puff INH RQ12 [facility] Zinc Sulfate (Zinc Sulfate 220 Mg Cap) 220 mg PO DAILY [facility] Last Admin: 12/30/17 09:45 Dose: 220 mg - Labs Labs: 12/30/17 06:28 12/30/17 06:28 PT 13.3 SECONDS (9.7-12.2) H 12/24/17 07:20 INR 1.2 12/24/17 07:20 APTT 33 SECONDS (21-34) 12/24/17 07:20 Attending/Attestation - Attestation I have personally seen and examined this patient.: Yes I have fully participated in the care of the patient.: Yes I have reviewed all pertinent clinical information, including history, physical exam and plan: Yes
--- NOTE | 2017-12-30 16:40 | CP.PCM.PN ---
Subjective - Date & Time of Evaluation Date of Evaluation: 12/30/17 Time of Evaluation: 10:30 - Subjective Subjective: Vascular Surgery- Dr. Mallory Patient seen and examined at bedside this AM. No acute events overnight. nursing notes reviewed. Pt has legs elevated. Dressing changed at bedside this AM. Denies nausea, vomiting, fever, chills, chest pain, shortness of breath. Objective - Vital Signs/Intake and Output Vital Signs (last 24 hours): Temp Pulse Resp BP Pulse Ox 98.5 F 93 H 20 143/77 95 12/30/17 16:09 12/30/17 16:09 12/30/17 16:09 12/30/17 16:09 12/30/17 16:09 Intake and Output: 12/30/17 12/30/17 06:59 18:59 Intake Total 500 500 Output Total 100 1550 Balance 400 -1050 - Medications Medications: Current Medications Acetaminophen (Tylenol 325mg Tab) 650 mg PO Q6 PRN PRN Reason: temperature 100.4F and above Last Admin: 12/25/17 00:57 Dose: 650 mg Albuterol (Ventolin Hfa 90 Mcg/Actuation (8 G)) 2 puff IH RBID [facility] Last Admin: 12/28/17 22:03 Dose: Not Given Albuterol/Ipratropium (Duoneb 3 Mg/0.5 Mg (3 Ml) Ud) 3 ml INH RQ6 [facility] Last Admin: 12/30/17 13:41 Dose: 3 ml Ascorbic Acid (Vitamin C 500 Mg Tab) 1,000 mg PO DAILY [facility] Last Admin: 12/30/17 10:30 Dose: 1,000 mg Aspirin (Ecotrin) 81 mg PO DAILY [facility] Last Admin: 12/30/17 09:44 Dose: 81 mg Clopidogrel Bisulfate (Plavix) 75 mg PO DAILY [facility] Last Admin: 12/30/17 09:44 Dose: 75 mg Docusate Sodium (Colace) 100 mg PO TID [facility] Last Admin: 12/30/17 13:49 Dose: 100 mg Enalapril Maleate (Vasotec) 20 mg PO DAILY [facility] Last Admin: 12/30/17 09:44 Dose: 20 mg Heparin Sodium (Porcine) (Heparin) 5,000 units SC Q8 [facility] Last Admin: 12/30/17 13:49 Dose: 5,000 units Morphine Sulfate (Morphine) 2 mg IVP Q4 PRN PRN Reason: Pain, moderate (4-7) Last Admin: 12/29/17 23:57 Dose: 2 mg Moxifloxacin HCl (Avelox) 400 mg PO Q24H [facility] PRN Reason: Protocol Last Admin: 12/29/17 17:12 Dose: 400 mg Multivitamins (Hexavitamin) 1 tab PO DAILY [facility] Last Admin: 12/30/17 09:44 Dose: 1 tab Niacin (Niacin) 250 mg PO HS [facility] Last Admin: 12/29/17 21:26 Dose: 250 mg Tqztf-0-Efgn Ethyl Esters (Lovaza) 1 gm PO DAILY [facility] Last Admin: 12/30/17 09:44 Dose: 1 gm Oxycodone HCl (Oxycontin Extended Release Tab) 30 mg PO Q12 [facility] Last Admin: 12/30/17 09:52 Dose: 30 mg Polyethylene Glycol (Miralax) 17 gm PO DAILY [facility] Last Admin: 12/30/17 09:43 Dose: 17 gm Pregabalin (Lyrica) 75 mg PO DAILY [facility] Last Admin: 12/30/17 09:45 Dose: 75 mg Saccharomyces Boulardii (Florastor) 250 mg PO BID [facility] Last Admin: 12/30/17 09:44 Dose: 250 mg Fluticasone/Salmeterol (Advair Diskus 500/50) 1 puff INH RQ12 [facility] Zinc Sulfate (Zinc Sulfate 220 Mg Cap) 220 mg PO DAILY [facility] Last Admin: 12/30/17 09:45 Dose: 220 mg - Labs Labs: 12/30/17 06:28 12/30/17 06:28 PT 13.3 SECONDS (9.7-12.2) H 12/24/17 07:20 INR 1.2 12/24/17 07:20 APTT 33 SECONDS (21-34) 12/24/17 07:20 - Constitutional Appears: Non-toxic, No Acute Distress - Head Exam Head Exam: ATRAUMATIC - Eye Exam Eye Exam: EOMI - ENT Exam ENT Exam: Mucous Membranes Moist - Respiratory Exam Respiratory Exam: NORMAL BREATHING PATTERN. absent: Accessory Muscle Use, Respiratory Distress - Cardiovascular Exam Cardiovascular Exam: +S1, +S2. absent: Bradycardia, Tachycardia - GI/Abdominal Exam GI & Abdominal Exam: Soft. absent: Distended, Firm, Guarding, Rigid, Tenderness - Extremities Exam Additional comments: RLE dressing changed - Neurological Exam Neurological Exam: Alert, Awake, Oriented x3 - Skin Skin Exam: Intact, Warm Assessment and Plan - Assessment and Plan (Free Text) Assessment: 82F angioplasty w/ stent in RLE bypass graft; chronic LE wound 2/2 PVD Plan: - Plan for possible tissue grafting - local wound care in the mean time - encourage ambulation and elevation of legs - monitor LE limb flow - discussed w/ Dr. Mallory surgical attending PGY1
[2017-12-30] MEDS: Fluticasone-Salmeterol 500-50mcg Diskus INH SCH (19:38)
[2017-12-31] MEDS: Albuterol-Ipratrop 3 mg / 0.5 (3 ml) UD INH SCH ×4 (02:31→20:33)
[2017-12-31 08:20] LABS: BASO # 0.1 K/uL (0.0-0.2); BASO % 0.5 % (0.0-2.0); EOS # 0.1 K/uL (0.0-0.7); EOS % 0.6 % (0.0-4.0); HEMOGLOBIN 8.7 g/dL (11.0-16.0); LYMPH # 1.7 K/uL (1.0-4.3); LYMPH % 13.4 % (20.0-40.0); MEAN CELL VOLUME 91.8 fL (81.0-99.0); MEAN CORPUSCULAR HEMOGLOBIN 31.2 pg (27.0-31.0); MEAN PLATELET VOLUME 8.6 fL (7.2-11.7); MONO # 0.8 K/uL (0.0-0.8); MONO % 6.2 % (0.0-10.0); NEUT % 79.3 % (50.0-75.0); RBC 2.8 Mil/uL (3.80-5.20); RED CELL DISTRIBUTION WIDTH 15.5 % (11.5-14.5); WHITE BLOOD COUNT 12.6 K/uL (4.8-10.8)
[2017-12-31 08:34] LABS: ALB/GLOB RATIO 0.9 (1.0-2.1); ALBUMIN 2.6 g/dL (3.5-5.0); ALT/SGPT 30 U/L (9-52); AST/SGOT 34 U/L (14-36); BLOOD UREA NITROGEN 12 mg/dL (7-17); CALCIUM 7.7 mg/dl (8.6-10.4); GFR AFRICAN-AMERICAN > 60; GFR NON-AFRICAN AMERICAN > 60
[2017-12-31] MEDS: Fluticasone-Salmeterol 500-50mcg Diskus INH SCH ×2 (09:40→20:36)
[2017-12-31] MEDS: Saccharomyces Boulardi 250 mg Cap PO SCH ×2 (10:13→17:12)
[2017-12-31] MEDS: Multiple Vitamins Tab PO SCH (10:13)
[2017-12-31] MEDS: Omega-3-Acid Ethyl Esters 1 GM Cap PO SCH (10:15)
[2017-12-31] MEDS: POLYETHYLENE GLYCOL 3350 17 GM/Dose PACKET PO SCH (10:15)
--- NOTE | 2017-12-31 11:32 | CP.PCM.PN ---
Subjective - Date & Time of Evaluation Date of Evaluation: 12/31/17 Time of Evaluation: 11:32 - Subjective Subjective: Podiatry Progress Note - Dr. Macias 82 year old female seen at bedside accompanied by her son for right hallux amputation wound and dorsal foot fluid blisters. Patient is seen in bed resting comfortably. Denies any overnight events. She currently denies F/C/N/V/CP/SOB Objective - Vital Signs/Intake and Output Vital Signs (last 24 hours): Temp Pulse Resp BP Pulse Ox 98.6 F 98 H 20 110/60 96 12/31/17 07:45 12/31/17 07:45 12/31/17 07:45 12/31/17 10:14 12/31/17 07:45 Intake and Output: 12/31/17 12/31/17 06:59 18:59 Intake Total 480 Output Total 260 Balance 220 - Medications Medications: Current Medications Acetaminophen (Tylenol 325mg Tab) 650 mg PO Q6 PRN PRN Reason: temperature 100.4F and above Last Admin: 12/25/17 00:57 Dose: 650 mg Albuterol (Ventolin Hfa 90 Mcg/Actuation (8 G)) 2 puff IH RBID [facility] Last Admin: 12/28/17 22:03 Dose: Not Given Albuterol/Ipratropium (Duoneb 3 Mg/0.5 Mg (3 Ml) Ud) 3 ml INH RQ6 [facility] Last Admin: 12/31/17 07:18 Dose: 3 ml Ascorbic Acid (Vitamin C 500 Mg Tab) 1,000 mg PO DAILY [facility] Last Admin: 12/31/17 10:13 Dose: 1,000 mg Aspirin (Ecotrin) 81 mg PO DAILY [facility] Last Admin: 12/31/17 10:14 Dose: 81 mg Clopidogrel Bisulfate (Plavix) 75 mg PO DAILY [facility] Last Admin: 12/31/17 10:14 Dose: 75 mg Docusate Sodium (Colace) 100 mg PO TID [facility] Last Admin: 12/31/17 10:13 Dose: 100 mg Enalapril Maleate (Vasotec) 20 mg PO DAILY [facility] Last Admin: 12/31/17 10:14 Dose: 20 mg Heparin Sodium (Porcine) (Heparin) 5,000 units SC Q8 [facility] Last Admin: 12/31/17 06:10 Dose: 5,000 units Morphine Sulfate (Morphine) 2 mg IVP Q4 PRN PRN Reason: Pain, moderate (4-7) Last Admin: 12/31/17 11:08 Dose: 2 mg Moxifloxacin HCl (Avelox) 400 mg PO Q24H [facility] PRN Reason: Protocol Stop: 01/04/18 11:00 Last Admin: 12/30/17 17:26 Dose: 400 mg Multivitamins (Hexavitamin) 1 tab PO DAILY [facility] Last Admin: 12/31/17 10:13 Dose: 1 tab Niacin (Niacin) 250 mg PO HS [facility] Last Admin: 12/30/17 22:09 Dose: 250 mg Vgjfg-2-Kadg Ethyl Esters (Lovaza) 1 gm PO DAILY [facility] Last Admin: 12/31/17 10:15 Dose: 1 gm Polyethylene Glycol (Miralax) 17 gm PO DAILY [facility] Last Admin: 12/31/17 10:15 Dose: 17 gm Pregabalin (Lyrica) 75 mg PO DAILY [facility] Last Admin: 12/31/17 10:13 Dose: 75 mg Saccharomyces Boulardii (Florastor) 250 mg PO BID [facility] Last Admin: 12/31/17 10:13 Dose: 250 mg Fluticasone/Salmeterol (Advair Diskus 500/50) 1 puff INH RQ12 [facility] Last Admin: 12/31/17 09:40 Dose: 1 puff Zinc Sulfate (Zinc Sulfate 220 Mg Cap) 220 mg PO DAILY [facility] Last Admin: 12/31/17 10:14 Dose: 220 mg - Labs Labs: 12/31/17 08:12 12/31/17 08:12 PT 13.3 SECONDS (9.7-12.2) H 12/24/17 07:20 INR 1.2 12/24/17 07:20 APTT 33 SECONDS (21-34) 12/24/17 07:20 - Constitutional Appears: Non-toxic, No Acute Distress - Extremities Exam Additional comments: dressing c/d/i to right foot - Neurological Exam Neurological Exam: Alert, Awake, Oriented x3 - Psychiatric Exam Psychiatric exam: Normal Affect, Normal Mood Assessment and Plan - Assessment and Plan (Free Text) Assessment: 82 year old female with 1) left hallux post-surgical wound secondary to PAD and 2) fluid filled blisters to right foot Plan: Pt seen and evaluated at bedside Discussed with Dr. Macias Chart, labs, and vitals reviewed - afebrile, WBC 12.6 dressing kept c/di per vascular surgery team, posterior leg wound to be left untouched with plans for future skin graft No surgical podiatric intervention indicated at this time Patient to follow up with Dr. Macias upon d/c Podiatry will continue to follow while in house
[2017-12-31 14:45] LABS: SQUAMOUS EPITHIAL 2 /hpf (0-5); URINE BACTERIA RARE (<OCC); URINE BILIRUBIN NEGATIVE (NEGATIVE); URINE BLOOD NEGATIVE (NEGATIVE); URINE CLARITY Clear (Clear); URINE GLUCOSE (UA) NORMAL (Normal); URINE LEUKOCYTE ESTERASE TRACE Leu/uL (Negative); URINE PROTEIN NEGATIVE (NEGATIVE); URINE UROBILINOGEN NORMAL mg/dL (0.2-1.0)
[2017-12-31 14:54] LABS: URINE COLOR YELLOW (YELLOW)
--- NOTE | 2017-12-31 17:28 | CP.PCM.PN ---
<Sandrine Welch E - Last Filed: 12/31/17 17:34> Subjective - Date & Time of Evaluation Date of Evaluation: 12/31/17 Time of Evaluation: 07:10 - Subjective Subjective: Medicine progress note ( Dr. Sharon Moody's service) Patient was seen and examined at bedside with son present. Patient reports that she is doing well with no shortness of breath. Patient is s/p aortofemoral angiogrm via left groin. selective catherization of right femoral artery. angiojet thrombolysis of occluded bypass. balloon angioplasty of proximal anastomosis ( distal sfa). balloon angioplasty of posterior tibial artery. perclose left groin. ceployment of 10x6 viabahn and 7x39 vbx at ruptures proximal anastomsis POD #7. Patient continues to admit to moderate right leg pain. Objective - Vital Signs/Intake and Output Vital Signs (last 24 hours): Temp Pulse Resp BP Pulse Ox 98.4 F 97 H 20 121/53 L 93 L 12/31/17 16:06 12/31/17 16:06 12/31/17 16:06 12/31/17 16:06 12/31/17 16:06 Intake and Output: 12/31/17 12/31/17 06:59 18:59 Intake Total 480 520 Output Total 260 250 Balance 220 270 - Medications Medications: Current Medications Acetaminophen (Tylenol 325mg Tab) 650 mg PO Q6 PRN PRN Reason: temperature 100.4F and above Last Admin: 12/25/17 00:57 Dose: 650 mg Albuterol (Ventolin Hfa 90 Mcg/Actuation (8 G)) 2 puff IH RBID [facility] Last Admin: 12/28/17 22:03 Dose: Not Given Albuterol/Ipratropium (Duoneb 3 Mg/0.5 Mg (3 Ml) Ud) 3 ml INH RQ6 [facility] Last Admin: 12/31/17 13:16 Dose: 3 ml Ascorbic Acid (Vitamin C 500 Mg Tab) 1,000 mg PO DAILY [facility] Last Admin: 12/31/17 10:13 Dose: 1,000 mg Aspirin (Ecotrin) 81 mg PO DAILY [facility] Last Admin: 12/31/17 10:14 Dose: 81 mg Clopidogrel Bisulfate (Plavix) 75 mg PO DAILY [facility] Last Admin: 12/31/17 10:14 Dose: 75 mg Docusate Sodium (Colace) 100 mg PO TID [facility] Last Admin: 12/31/17 17:12 Dose: 100 mg Enalapril Maleate (Vasotec) 20 mg PO DAILY [facility] Last Admin: 12/31/17 10:14 Dose: 20 mg Heparin Sodium (Porcine) (Heparin) 5,000 units SC Q8 [facility] Last Admin: 12/31/17 14:32 Dose: 5,000 units Morphine Sulfate (Morphine) 2 mg IVP Q4 PRN PRN Reason: Pain, moderate (4-7) Last Admin: 12/31/17 11:08 Dose: 2 mg Moxifloxacin HCl (Avelox) 400 mg PO Q24H [facility] PRN Reason: Protocol Stop: 01/04/18 11:00 Last Admin: 12/31/17 17:12 Dose: 400 mg Multivitamins (Hexavitamin) 1 tab PO DAILY [facility] Last Admin: 12/31/17 10:13 Dose: 1 tab Niacin (Niacin) 250 mg PO HS [facility] Last Admin: 12/30/17 22:09 Dose: 250 mg Ssidl-5-Pqec Ethyl Esters (Lovaza) 1 gm PO DAILY [facility] Last Admin: 12/31/17 10:15 Dose: 1 gm Oxycodone HCl (Oxycontin Extended Release Tab) 30 mg PO Q12 [facility] Stop: 01/03/18 22:01 Polyethylene Glycol (Miralax) 17 gm PO DAILY [facility] Last Admin: 12/31/17 10:15 Dose: 17 gm Pregabalin (Lyrica) 75 mg PO DAILY [facility] Last Admin: 12/31/17 10:13 Dose: 75 mg Saccharomyces Boulardii (Florastor) 250 mg PO BID [facility] Last Admin: 12/31/17 17:12 Dose: 250 mg Fluticasone/Salmeterol (Advair Diskus 500/50) 1 puff INH RQ12 [facility] Last Admin: 12/31/17 09:40 Dose: 1 puff Zinc Sulfate (Zinc Sulfate 220 Mg Cap) 220 mg PO DAILY [facility] Last Admin: 12/31/17 10:14 Dose: 220 mg - Labs Labs: 12/31/17 08:12 12/31/17 08:12 PT 13.3 SECONDS (9.7-12.2) H 12/24/17 07:20 INR 1.2 12/24/17 07:20 APTT 33 SECONDS (21-34) 12/24/17 07:20 - Constitutional Appears: Well, No Acute Distress - Head Exam Head Exam: ATRAUMATIC, NORMAL INSPECTION - Eye Exam Eye Exam: EOMI, Normal appearance - ENT Exam ENT Exam: Mucous Membranes Moist - Respiratory Exam Respiratory Exam: NORMAL BREATHING PATTERN. absent: Prolonged Expiratory Phase , Rhonchi, Wheezes, Respiratory Distress - GI/Abdominal Exam GI & Abdominal Exam: Soft, Normal Bowel Sounds. absent: Distended, Firm, Guarding, Rigid, Tenderness - Extremities Exam Additional comments: s/p aortofemoral angiogrm via left groin. selective catherization of right femoral artery. angiojet thrombolysis of occluded bypass. balloon angioplasty of proximal anastomosis ( distal sfa). balloon angioplasty of posterior tibial artery. perclose left groin. ceployment of 10x6 viabahn and 7x39 vbx at ruptures proximal anastomsis POD #7. Right leg extremity dressing clean, dry and intact - Neurological Exam Neurological Exam: Alert, Awake, Oriented x3 - Psychiatric Exam Psychiatric exam: Depressed - Skin Skin Exam: Normal Color Assessment and Plan (1) Ischemia of right lower extremity Assessment & Plan: Consultations: [facility], Dr. Mallory---> Help appreciated * All management as per vascular surgery. * s/p aortofemoral angiogrm via left groin. selective catherization of right femoral artery. angiojet thrombolysis of occluded bypass. balloon angioplasty of proximal anastomosis ( distal sfa). balloon angioplasty of posterior tibial artery. perclose left groin. ceployment of 10x6 viabahn and 7x39 vbx at ruptures proximal anastomsis POD # 7. Diagnostic imaging: Arterial duplex right lower extremity (12/21/17): Occuluded right mid superficial femoral to posterior tibial artery bypass graft, anterior tibial and dorsalis pedis arteries. 30-49% stenosis of the right proximal superficial femoral artery Abdominal Angiography (12/21/17): Right femoral/popliteal arteries: Mild atherosclerotic disease of common femoral artery. [id number] atherosclerotic disease of superficial femoral artery. Occlusion of popliteal artery. Right calf/foot arteries: Reconstituted diminished, attenuated intermittent flow to anterior tibial, posterior tibial, and peroneal arteries. 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 Amputation second digit to level shaft of proximal phalanx. F/u CT angiogram results Medications: * ASA 81mg PO daily * Plavix 75mg PO daily * Lyrica 75mg PO daily * Morphine 2mg IV q4h prn * Percocet 1 tab PO Q4H prn and 2 tab PO q4h prn (Pain control) * Oxycontin 30mg PO Q12H Status: Acute (2) Hypertension Assessment & Plan: Controlled with medication Continue home medication: * Vasotec 20mg PO daily Status: Acute (3) Hypertriglyceridemia Assessment & Plan: Continue home medication: * Lovaza 1 tab po daily Lipid Panel (12/22/17): * TGL:125, Cholesterol:128, LDL:72 and HDL:27 Status: Acute (4) Low HDL (under 40) Assessment & Plan: Medication: Niacin 250mg PO HS Status: Acute (5) Ulcer of right lower leg Assessment & Plan: Podiatry: Dr. Macias * Management as per recommendation General surgery, Dr. Mallory * Plans for possible skin graft after decrease inflammation Wound Culture: + Klebsiella Oxytoca and Corynebacterium Species Medications/Management: * Avelox 400mg PO q12h (Switched to avelox from cipro for better coverage) * Florastor 250mg PO BID * Vitamin C 1,000mg PO daily * Zinc 220mg PO daily * Wound Care Status: Acute (6) Constipation Assessment & Plan: Resolving Miralax 17gm PO Daily Received enema x2 Status: Acute (7) History of COPD Assessment & Plan: Duonebs 3ml INH RQ6 Adviar 1 puff Q12H Status: Acute (8) Prophylactic measure Assessment & Plan: GI: Pepcid 20mg PO daily DVT: SCDs on left extremity. Heparin 5,000 units Q8H Multivitamins 1 tab PO daily Disposition: Plans for skin graft as per vascular surgery before discharge All plans and management discussed with Dr. Sharon Moody Status: Acute <Michael Moody - Last Filed: 12/31/17 19:53> Objective - Vital Signs/Intake and Output Vital Signs (last 24 hours): Temp Pulse Resp BP Pulse Ox 98.7 F 91 H 17 119/65 96 12/31/17 17:52 12/31/17 17:52 12/31/17 17:52 12/31/17 17:52 12/31/17 17:52 Intake and Output: 12/31/17 01/01/18 18:59 06:59 Intake Total 520 Output Total 250 Balance 270 - Medications Medications: Current Medications Acetaminophen (Tylenol 325mg Tab) 650 mg PO Q6 PRN PRN Reason: temperature 100.4F and above Last Admin: 12/25/17 00:57 Dose: 650 mg Albuterol (Ventolin Hfa 90 Mcg/Actuation (8 G)) 2 puff IH RBID [facility] Last Admin: 12/28/17 22:03 Dose: Not Given Albuterol/Ipratropium (Duoneb 3 Mg/0.5 Mg (3 Ml) Ud) 3 ml INH RQ6 [facility] Last Admin: 12/31/17 13:16 Dose: 3 ml Ascorbic Acid (Vitamin C 500 Mg Tab) 1,000 mg PO DAILY [facility] Last Admin: 12/31/17 10:13 Dose: 1,000 mg Aspirin (Ecotrin) 81 mg PO DAILY [facility] Last Admin: 12/31/17 10:14 Dose: 81 mg Clopidogrel Bisulfate (Plavix) 75 mg PO DAILY [facility] Last Admin: 12/31/17 10:14 Dose: 75 mg Docusate Sodium (Colace) 100 mg PO TID [facility] Last Admin: 12/31/17 17:12 Dose: 100 mg Enalapril Maleate (Vasotec) 20 mg PO DAILY [facility] Last Admin: 12/31/17 10:14 Dose: 20 mg Heparin Sodium (Porcine) (Heparin) 5,000 units SC Q8 [facility] Last Admin: 12/31/17 14:32 Dose: 5,000 units Morphine Sulfate (Morphine) 2 mg IVP Q4 PRN PRN Reason: Pain, moderate (4-7) Last Admin: 12/31/17 17:47 Dose: 2 mg Moxifloxacin HCl (Avelox) 400 mg PO Q24H [facility] PRN Reason: Protocol Stop: 01/04/18 11:00 Last Admin: 12/31/17 17:12 Dose: 400 mg Multivitamins (Hexavitamin) 1 tab PO DAILY [facility] Last Admin: 12/31/17 10:13 Dose: 1 tab Niacin (Niacin) 250 mg PO HS [facility] Last Admin: 12/30/17 22:09 Dose: 250 mg Rruud-3-Metu Ethyl Esters (Lovaza) 1 gm PO DAILY [facility] Last Admin: 12/31/17 10:15 Dose: 1 gm Oxycodone HCl (Oxycontin Extended Release Tab) 30 mg PO Q12 [facility] Stop: 01/03/18 22:01 Polyethylene Glycol (Miralax) 17 gm PO DAILY [facility] Last Admin: 12/31/17 10:15 Dose: 17 gm Pregabalin (Lyrica) 75 mg PO DAILY [facility] Last Admin: 12/31/17 10:13 Dose: 75 mg Saccharomyces Boulardii (Florastor) 250 mg PO BID [facility] Last Admin: 12/31/17 17:12 Dose: 250 mg Fluticasone/Salmeterol (Advair Diskus 500/50) 1 puff INH RQ12 [facility] Last Admin: 12/31/17 09:40 Dose: 1 puff Zinc Sulfate (Zinc Sulfate 220 Mg Cap) 220 mg PO DAILY [facility] Last Admin: 12/31/17 10:14 Dose: 220 mg - Labs Labs: 12/31/17 08:12 12/31/17 08:12 PT 13.3 SECONDS (9.7-12.2) H 12/24/17 07:20 INR 1.2 12/24/17 07:20 APTT 33 SECONDS (21-34) 12/24/17 07:20 Attending/Attestation - Attestation I have personally seen and examined this patient.: Yes I have fully participated in the care of the patient.: Yes I have reviewed all pertinent clinical information, including history, physical exam and plan: Yes
[2017-12-31] MEDS: oxyCODONE 10 mg ER Tab (oxyCONTIN) PO SCH (22:04)
[2018-01-01] MEDS: Albuterol-Ipratrop 3 mg / 0.5 (3 ml) UD INH SCH ×4 (01:28→20:08)
[2018-01-01 07:34] LABS: BASO % 0.3 % (0.0-2.0); EOS # 0.2 K/uL (0.0-0.7); EOS % 1.6 % (0.0-4.0); HEMOGLOBIN 8.3 g/dL (11.0-16.0); LYMPH # 1.3 K/uL (1.0-4.3); LYMPH % 9.2 % (20.0-40.0); MEAN CORPUSCULAR HEMOGLOBIN 30.8 pg (27.0-31.0); MEAN CORPUSCULAR HGB CONC 33.5 g/dL (33.0-37.0); MEAN PLATELET VOLUME 8.5 fL (7.2-11.7); MONO # 0.9 K/uL (0.0-0.8); MONO % 6.3 % (0.0-10.0); NEUT # 11.4 K/uL (1.8-7.0); NEUT % 82.6 % (50.0-75.0); NRBC % 0.1 % (0.0-2.0); PLATELET COUNT 298 K/uL (130-400); RED CELL DISTRIBUTION WIDTH 15.6 % (11.5-14.5); WHITE BLOOD COUNT 13.8 K/uL (4.8-10.8)
[2018-01-01 08:19] LABS: ALB/GLOB RATIO 0.9 (1.0-2.1); ALBUMIN 2.5 g/dL (3.5-5.0); ALT/SGPT 25 U/L (9-52); AST/SGOT 25 U/L (14-36); BLOOD UREA NITROGEN 15 mg/dL (7-17); CALCIUM 7.8 mg/dl (8.6-10.4); GFR AFRICAN-AMERICAN > 60; GFR NON-AFRICAN AMERICAN > 60
[2018-01-01 08:49] LABS: BASOPHIL 1 % (0-2); HYPOCHROMIC SLIGHT; LYMPHOCYTE 10 % (20-40); MONOCYTE 5 % (0-10); NEUTROPHIL 84 % (50-75); PLATELET ESTIMATE NORMAL (NORMAL); TOTAL CELLS COUNTED 100
[2018-01-01 08:50] LABS: LARGE PLATELETS PRESENT; OVALOCYTES SLIGHT
[2018-01-01] MEDS: Fluticasone-Salmeterol 500-50mcg Diskus INH SCH ×2 (09:50→20:08)
[2018-01-01] MEDS: POLYETHYLENE GLYCOL 3350 17 GM/Dose PACKET PO SCH (10:12)
[2018-01-01] MEDS: Multiple Vitamins Tab PO SCH (10:12)
[2018-01-01] MEDS: Omega-3-Acid Ethyl Esters 1 GM Cap PO SCH (10:12)
[2018-01-01] MEDS: Saccharomyces Boulardi 250 mg Cap PO SCH ×2 (10:12→17:35)
[2018-01-01] MEDS: oxyCODONE 10 mg ER Tab (oxyCONTIN) PO SCH ×2 (10:13→21:58)
[2018-01-01] MEDS: Vancomycin 125 MG/5 ML SOLN (ORAL/RECTAL) PO SCH ×3 (12:28→18:35)
--- NOTE | 2018-01-01 13:47 | CP.PCM.PN ---
Subjective - Date & Time of Evaluation Date of Evaluation: 01/01/18 Time of Evaluation: 07:30 - Subjective Subjective: Medicine progress note ( Dr. Sharon Moody's service) Patient was seen and examined at bedside with son present. Patient was resting comfortably in bed in no acute issues. Patient is clinically the same. Patient denies fever, chills, chest pain, SOB, palpitations, abdominal pain, diarrhea but still admits to moderate leg pain. Objective - Vital Signs/Intake and Output Vital Signs (last 24 hours): Temp Pulse Resp BP Pulse Ox 98.2 F 95 H 18 123/64 98 01/01/18 07:55 01/01/18 07:55 01/01/18 07:55 01/01/18 10:12 01/01/18 07:55 Intake and Output: 01/01/18 01/01/18 06:59 18:59 Intake Total 600 Balance 600 - Medications Medications: Current Medications Acetaminophen (Tylenol 325mg Tab) 650 mg PO Q6 PRN PRN Reason: temperature 100.4F and above Last Admin: 12/25/17 00:57 Dose: 650 mg Albuterol (Ventolin Hfa 90 Mcg/Actuation (8 G)) 2 puff IH RBID [facility] Last Admin: 12/28/17 22:03 Dose: Not Given Albuterol/Ipratropium (Duoneb 3 Mg/0.5 Mg (3 Ml) Ud) 3 ml INH RQ6 [facility] Last Admin: 01/01/18 13:05 Dose: 3 ml Ascorbic Acid (Vitamin C 500 Mg Tab) 1,000 mg PO DAILY [facility] Last Admin: 01/01/18 10:13 Dose: 1,000 mg Aspirin (Ecotrin) 81 mg PO DAILY [facility] Last Admin: 01/01/18 10:13 Dose: 81 mg Clopidogrel Bisulfate (Plavix) 75 mg PO DAILY [facility] Last Admin: 01/01/18 10:12 Dose: 75 mg Docusate Sodium (Colace) 100 mg PO TID [facility] Last Admin: 01/01/18 10:12 Dose: 100 mg Enalapril Maleate (Vasotec) 20 mg PO DAILY [facility] Last Admin: 01/01/18 10:12 Dose: 20 mg Heparin Sodium (Porcine) (Heparin) 5,000 units SC Q8 [facility] Last Admin: 01/01/18 05:29 Dose: 5,000 units Morphine Sulfate (Morphine) 2 mg IVP Q4 PRN PRN Reason: Pain, moderate (4-7) Last Admin: 01/01/18 12:34 Dose: 2 mg Moxifloxacin HCl (Avelox) 400 mg PO Q24H [facility] PRN Reason: Protocol Stop: 01/04/18 11:00 Last Admin: 12/31/17 17:12 Dose: 400 mg Multivitamins (Hexavitamin) 1 tab PO DAILY [facility] Last Admin: 01/01/18 10:12 Dose: 1 tab Niacin (Niacin) 250 mg PO HS [facility] Last Admin: 12/31/17 22:04 Dose: 250 mg Ofonk-1-Itqu Ethyl Esters (Lovaza) 1 gm PO DAILY [facility] Last Admin: 01/01/18 10:12 Dose: 1 gm Oxycodone HCl (Oxycontin Extended Release Tab) 30 mg PO Q12 [facility] Stop: 01/03/18 22:01 Last Admin: 01/01/18 10:13 Dose: 30 mg Polyethylene Glycol (Miralax) 17 gm PO DAILY [facility] Last Admin: 01/01/18 10:12 Dose: Not Given Pregabalin (Lyrica) 75 mg PO DAILY [facility] Last Admin: 01/01/18 10:12 Dose: 75 mg Saccharomyces Boulardii (Florastor) 250 mg PO BID [facility] Last Admin: 01/01/18 10:12 Dose: 250 mg Fluticasone/Salmeterol (Advair Diskus 500/50) 1 puff INH RQ12 [facility] Last Admin: 01/01/18 09:50 Dose: 1 puff Vancomycin HCl (Vancocin (Oral Or Rectal Use)) 125 mg PO QID [facility] PRN Reason: Protocol Stop: 01/11/18 12:01 Last Admin: 01/01/18 12:28 Dose: 125 mg Zinc Sulfate (Zinc Sulfate 220 Mg Cap) 220 mg PO DAILY [facility] Last Admin: 01/01/18 10:12 Dose: 220 mg - Labs Labs: 01/01/18 07:25 01/01/18 07:25 PT 13.3 SECONDS (9.7-12.2) H 12/24/17 07:20 INR 1.2 12/24/17 07:20 APTT 33 SECONDS (21-34) 12/24/17 07:20 - Constitutional Appears: No Acute Distress - Head Exam Head Exam: ATRAUMATIC - Eye Exam Eye Exam: EOMI, Normal appearance - ENT Exam ENT Exam: Mucous Membranes Moist - Respiratory Exam Respiratory Exam: NORMAL BREATHING PATTERN. absent: Rhonchi, Wheezes, Respiratory Distress - Cardiovascular Exam Cardiovascular Exam: REGULAR RHYTHM, +S1, +S2. absent: Murmur - GI/Abdominal Exam GI & Abdominal Exam: Soft, Normal Bowel Sounds. absent: Distended, Firm, Guarding, Rigid, Tenderness - Extremities Exam Additional comments: s/p aortofemoral angiogrm via left groin. selective catherization of right femoral artery. angiojet thrombolysis of occluded bypass. balloon angioplasty of proximal anastomosis ( distal sfa). balloon angioplasty of posterior tibial artery. perclose left groin. ceployment of 10x6 viabahn and 7x39 vbx at ruptures proximal anastomsis POD #8. Right leg extremity dressing clean, dry and intact - Neurological Exam Neurological Exam: Alert, Awake, Oriented x3 - Psychiatric Exam Psychiatric exam: Normal Affect - Skin Skin Exam: Normal Color Assessment and Plan (1) Ischemia of right lower extremity Assessment & Plan: Consultations: V[facility], Dr. Mallory---> Help appreciated * All management as per vascular surgery. * s/p aortofemoral angiogrm via left groin. selective catherization of right femoral artery. angiojet thrombolysis of occluded bypass. balloon angioplasty of proximal anastomosis ( distal sfa). balloon angioplasty of posterior tibial artery. perclose left groin. ceployment of 10x6 viabahn and 7x39 vbx at ruptures proximal anastomsis POD # 7. Diagnostic imaging: Arterial duplex right lower extremity (12/21/17): Occuluded right mid superficial femoral to posterior tibial artery bypass graft, anterior tibial and dorsalis pedis arteries. 30-49% stenosis of the right proximal superficial femoral artery Abdominal Angiography (12/21/17): Right femoral/popliteal arteries: Mild atherosclerotic disease of common femoral artery. [id number] atherosclerotic disease of superficial femoral artery. Occlusion of popliteal artery. Right calf/foot arteries: Reconstituted diminished, attenuated intermittent flow to anterior tibial, posterior tibial, and peroneal arteries. 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 Amputation second digit to level shaft of proximal phalanx. F/u CT angiogram results Medications: * ASA 81mg PO daily * Plavix 75mg PO daily * Lyrica 75mg PO daily * Morphine 2mg IV q4h prn * Percocet 1 tab PO Q4H prn and 2 tab PO q4h prn (Pain control) * Oxycontin 30mg PO Q12H Status: Acute (2) Hypertension Assessment & Plan: Controlled with medication Continue home medication: * Vasotec 20mg PO daily Status: Acute (3) Hypertriglyceridemia Assessment & Plan: Continue home medication: * Lovaza 1 tab po daily Lipid Panel (12/22/17): * TGL:125, Cholesterol:128, LDL:72 and HDL:27 Status: Acute (4) Low HDL (under 40) Assessment & Plan: Medication: Niacin 250mg PO HS Status: Acute (5) Ulcer of right lower leg Assessment & Plan: Podiatry: Dr. Macias * Management as per recommendation General surgery, Dr. Mallory * Plans for possible skin graft after decrease inflammation Wound Culture: + Klebsiella Oxytoca and Corynebacterium Species Medications/Management: * Avelox 400mg PO q12h (Switched to avelox from cipro for better coverage) * Florastor 250mg PO BID * Vitamin C 1,000mg PO daily * Zinc 220mg PO daily * Wound Care Status: Acute (6) Constipation Assessment & Plan: Resolving Miralax 17gm PO Daily Received enema x2 Status: Acute (7) History of COPD Assessment & Plan: Duonebs 3ml INH RQ6 Adviar 1 puff Q12H Status: Acute (8) Prophylactic measure Assessment & Plan: GI: Pepcid 20mg PO daily DVT: SCDs on left extremity. Heparin 5,000 units Q8H Multivitamins 1 tab PO daily Disposition: Plans for skin graft as per vascular surgery before discharge All plans and management discussed with Dr. Sharon Moody Status: Acute
--- NOTE | 2018-01-01 16:38 | CP.PCM.PN ---
<Sandrine Welch E - Last Filed: 01/01/18 17:37> Subjective - Date & Time of Evaluation Date of Evaluation: 01/01/18 Time of Evaluation: 07:25 - Subjective Subjective: Medicine progress note ( Dr. Sharon Moody's service) Patient was seen and examined at bedside with son present. Patient was resting in bed with right leg elevated as instructed. Patient denies any acute issues. Patient denies fever, chills, nausea, vomiting, chest pain, SOB, palpitations, right leg numbness and tingling but still admits to right leg pain Objective - Vital Signs/Intake and Output Vital Signs (last 24 hours): Temp Pulse Resp BP Pulse Ox 98.2 F 95 H 18 123/64 98 01/01/18 07:55 01/01/18 07:55 01/01/18 07:55 01/01/18 10:12 01/01/18 07:55 Intake and Output: 01/01/18 01/01/18 06:59 18:59 Intake Total 600 Balance 600 - Medications Medications: Current Medications Acetaminophen (Tylenol 325mg Tab) 650 mg PO Q6 PRN PRN Reason: temperature 100.4F and above Last Admin: 12/25/17 00:57 Dose: 650 mg Albuterol (Ventolin Hfa 90 Mcg/Actuation (8 G)) 2 puff IH RBID [facility] Last Admin: 12/28/17 22:03 Dose: Not Given Albuterol/Ipratropium (Duoneb 3 Mg/0.5 Mg (3 Ml) Ud) 3 ml INH RQ6 [facility] Last Admin: 01/01/18 13:05 Dose: 3 ml Ascorbic Acid (Vitamin C 500 Mg Tab) 1,000 mg PO DAILY [facility] Last Admin: 01/01/18 10:13 Dose: 1,000 mg Aspirin (Ecotrin) 81 mg PO DAILY [facility] Last Admin: 01/01/18 10:13 Dose: 81 mg Clopidogrel Bisulfate (Plavix) 75 mg PO DAILY [facility] Last Admin: 01/01/18 10:12 Dose: 75 mg Docusate Sodium (Colace) 100 mg PO TID [facility] Last Admin: 01/01/18 13:47 Dose: 100 mg Enalapril Maleate (Vasotec) 20 mg PO DAILY [facility] Last Admin: 01/01/18 10:12 Dose: 20 mg Heparin Sodium (Porcine) (Heparin) 5,000 units SC Q8 [facility] Last Admin: 01/01/18 13:46 Dose: 5,000 units Morphine Sulfate (Morphine) 2 mg IVP Q4 PRN PRN Reason: Pain, moderate (4-7) Last Admin: 01/01/18 12:34 Dose: 2 mg Moxifloxacin HCl (Avelox) 400 mg PO Q24H [facility] PRN Reason: Protocol Stop: 01/04/18 11:00 Last Admin: 12/31/17 17:12 Dose: 400 mg Multivitamins (Hexavitamin) 1 tab PO DAILY [facility] Last Admin: 01/01/18 10:12 Dose: 1 tab Niacin (Niacin) 250 mg PO HS [facility] Last Admin: 12/31/17 22:04 Dose: 250 mg Trgfe-8-Cvpx Ethyl Esters (Lovaza) 1 gm PO DAILY [facility] Last Admin: 01/01/18 10:12 Dose: 1 gm Oxycodone HCl (Oxycontin Extended Release Tab) 30 mg PO Q12 [facility] Stop: 01/03/18 22:01 Last Admin: 01/01/18 10:13 Dose: 30 mg Polyethylene Glycol (Miralax) 17 gm PO DAILY [facility] Last Admin: 01/01/18 10:12 Dose: Not Given Pregabalin (Lyrica) 75 mg PO DAILY [facility] Last Admin: 01/01/18 10:12 Dose: 75 mg Saccharomyces Boulardii (Florastor) 250 mg PO BID [facility] Last Admin: 01/01/18 10:12 Dose: 250 mg Fluticasone/Salmeterol (Advair Diskus 500/50) 1 puff INH RQ12 [facility] Last Admin: 01/01/18 09:50 Dose: 1 puff Vancomycin HCl (Vancocin (Oral Or Rectal Use)) 125 mg PO QID [facility] PRN Reason: Protocol Stop: 01/11/18 12:01 Last Admin: 01/01/18 13:47 Dose: 125 mg Zinc Sulfate (Zinc Sulfate 220 Mg Cap) 220 mg PO DAILY [facility] Last Admin: 01/01/18 10:12 Dose: 220 mg - Labs Labs: 01/01/18 07:25 01/01/18 07:25 PT 13.3 SECONDS (9.7-12.2) H 12/24/17 07:20 INR 1.2 12/24/17 07:20 APTT 33 SECONDS (21-34) 12/24/17 07:20 Assessment and Plan (1) Ischemia of right lower extremity Assessment & Plan: Consultations: Vascular [facility], Dr. Mallory---> Help appreciated * All management as per vascular surgery. * s/p aortofemoral angiogrm via left groin. selective catherization of right femoral artery. angiojet thrombolysis of occluded bypass. balloon angioplasty of proximal anastomosis ( distal sfa). balloon angioplasty of posterior tibial artery. perclose left groin. ceployment of 10x6 viabahn and 7x39 vbx at ruptures proximal anastomsis POD # 7. Diagnostic imaging: Arterial duplex right lower extremity (12/21/17): Occuluded right mid superficial femoral to posterior tibial artery bypass graft, anterior tibial and dorsalis pedis arteries. 30-49% stenosis of the right proximal superficial femoral artery Abdominal Angiography (12/21/17): Right femoral/popliteal arteries: Mild atherosclerotic disease of common femoral artery. [id number] atherosclerotic disease of superficial femoral artery. Occlusion of popliteal artery. Right calf/foot arteries: Reconstituted diminished, attenuated intermittent flow to anterior tibial, posterior tibial, and peroneal arteries. 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 Amputation second digit to level shaft of proximal phalanx. F/u CT angiogram results Medications: * ASA 81mg PO daily * Plavix 75mg PO daily * Lyrica 75mg PO daily * Morphine 2mg IV q4h prn * Percocet 1 tab PO Q4H prn and 2 tab PO q4h prn (Pain control) * Oxycontin 30mg PO Q12H Status: Acute (2) Hypertension Assessment & Plan: Controlled with medication Continue home medication: * Vasotec 20mg PO daily Status: Acute (3) Hypertriglyceridemia Assessment & Plan: Continue home medication: * Lovaza 1 tab po daily Lipid Panel (12/22/17): * TGL:125, Cholesterol:128, LDL:72 and HDL:27 Status: Acute (4) Low HDL (under 40) Assessment & Plan: Medication: Niacin 250mg PO HS Status: Acute (5) Ulcer of right lower leg Assessment & Plan: Podiatry: Dr. Macias * Management as per recommendation General surgery, Dr. 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 Land---> Help appreciated Asymptomatic at the moment Not need for treatment or isolation Status: Acute (9) Prophylactic measure Assessment & Plan: GI: Pepcid 20mg PO daily DVT: SCDs on left extremity. Heparin 5,000 units Q8H Multivitamins 1 tab PO daily Disposition: Plans for discharge tomorrrow to subacute rehab (01/02/18) All plans and management discussed with Dr. Sharon Moody Status: Acute <Michael Moody - Last Filed: 01/01/18 19:20> Objective - Vital Signs/Intake and Output Vital Signs (last 24 hours): Temp Pulse Resp BP Pulse Ox 97.9 F 86 18 100/47 L 95 01/01/18 16:55 01/01/18 16:55 01/01/18 16:55 01/01/18 16:55 01/01/18 16:55 - Medications Medications: Current Medications Acetaminophen (Tylenol 325mg Tab) 650 mg PO Q6 PRN PRN Reason: temperature 100.4F and above Last Admin: 12/25/17 00:57 Dose: 650 mg Albuterol (Ventolin Hfa 90 Mcg/Actuation (8 G)) 2 puff IH RBID [facility] Last Admin: 12/28/17 22:03 Dose: Not Given Albuterol/Ipratropium (Duoneb 3 Mg/0.5 Mg (3 Ml) Ud) 3 ml INH RQ6 [facility] Last Admin: 01/01/18 13:05 Dose: 3 ml Ascorbic Acid (Vitamin C 500 Mg Tab) 1,000 mg PO DAILY [facility] Last Admin: 01/01/18 10:13 Dose: 1,000 mg Aspirin (Ecotrin) 81 mg PO DAILY [facility] Last Admin: 01/01/18 10:13 Dose: 81 mg Clopidogrel Bisulfate (Plavix) 75 mg PO DAILY [facility] Last Admin: 01/01/18 10:12 Dose: 75 mg Docusate Sodium (Colace) 100 mg PO TID [facility] Last Admin: 01/01/18 17:32 Dose: 100 mg Enalapril Maleate (Vasotec) 20 mg PO DAILY [facility] Last Admin: 01/01/18 10:12 Dose: 20 mg Heparin Sodium (Porcine) (Heparin) 5,000 units SC Q8 [facility] Last Admin: 01/01/18 13:46 Dose: 5,000 units Morphine Sulfate (Morphine) 2 mg IVP Q4 PRN PRN Reason: Pain, moderate (4-7) Last Admin: 01/01/18 12:34 Dose: 2 mg Moxifloxacin HCl (Avelox) 400 mg PO Q24H [facility] PRN Reason: Protocol Stop: 01/04/18 11:00 Last Admin: 01/01/18 17:35 Dose: 400 mg Multivitamins (Hexavitamin) 1 tab PO DAILY [facility] Last Admin: 01/01/18 10:12 Dose: 1 tab Niacin (Niacin) 250 mg PO HS [facility] Last Admin: 12/31/17 22:04 Dose: 250 mg Dthhk-0-Qjry Ethyl Esters (Lovaza) 1 gm PO DAILY [facility] Last Admin: 01/01/18 10:12 Dose: 1 gm Oxycodone HCl (Oxycontin Extended Release Tab) 30 mg PO Q12 [facility] Stop: 01/03/18 22:01 Last Admin: 01/01/18 10:13 Dose: 30 mg Polyethylene Glycol (Miralax) 17 gm PO DAILY [facility] Last Admin: 01/01/18 10:12 Dose: Not Given Pregabalin (Lyrica) 75 mg PO DAILY [facility] Last Admin: 01/01/18 10:12 Dose: 75 mg Saccharomyces Boulardii (Florastor) 250 mg PO BID [facility] Last Admin: 01/01/18 17:35 Dose: 250 mg Fluticasone/Salmeterol (Advair Diskus 500/50) 1 puff INH RQ12 [facility] Last Admin: 01/01/18 09:50 Dose: 1 puff Zinc Sulfate (Zinc Sulfate 220 Mg Cap) 220 mg PO DAILY [facility] Last Admin: 01/01/18 10:12 Dose: 220 mg - Labs Labs: 01/01/18 07:25 01/01/18 07:25 PT 13.3 SECONDS (9.7-12.2) H 12/24/17 07:20 INR 1.2 12/24/17 07:20 APTT 33 SECONDS (21-34) 12/24/17 07:20 Attending/Attestation - Attestation I have personally seen and examined this patient.: Yes I have fully participated in the care of the patient.: Yes I have reviewed all pertinent clinical information, including history, physical exam and plan: Yes Notes (Text): 01/01/18 19:13 Patient was seen and examined at 1:30 PM Exam, assessment and plan were gone over with the resident. As bowel movements are well formed, no fever, no abdominal pain, C. diff being positive is likely secondary to carrier state therefore we will discontinue Vancomycin and the contact isolation. Plan is for [facility] when bed is available. Michael Moody D.O.
--- NOTE | 2018-01-01 18:01 | CP.PCM.CON ---
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 Patient states that she has had progressive difficulties walking for the past 4-5 days and pain in her calf and foot became unbearable and her foot became cold. Patient denies any fever or chills, chest pain, or SOB. during hospital stay it was decided skin graft needed but should wait pending ktahi had c diff sent but no symptoms and came back positive- + Hx of multiple antibiotics in past interviewed with son present and denies any abd complaints or diarrhea PMH: HLD, HTN, PAD, COPD PSH: right lower extremity bypass graft ALL: NKDA Review of Systems - Review of Systems All systems: reviewed and no additional remarkable complaints except - Constitutional Constitutional: As Per HPI - EENT Eyes: absent: As Per HPI, Blind Spots, Blurred Vision, Change in Vision, Decreased Night Vision, Diplopia, Discharge, Dry Eye, Exophthalmos, Floaters, Irritation, Itchy Eyes, Loss of Peripheral Vision, Pain, Photophobia, Requires Corrective Lenses, Sees Flashes, Spots in Vision, Tunnel Vision, Other Visual Disturbances, Loss of Vision, Other Ears: absent: As Per HPI, Decreased Hearing, Ear Discharge, Ear Pain, Tinnitus, Abnormal Hearing, Disequilibrium, Dizziness, Other Nose/Mouth/Throat: absent: As Per HPI, Epistaxis, Nasal Congestion, Nasal Discharge, Nasal Obstruction, Nasal Trauma, Nose Pain, Post Nasal Drip, Sinus Pain, Sinus Pressure, Bleeding Gums, Change in Voice, Dental Pain, Dry Mouth, Dysphagia, Halitosis, Hoarsness, Lip Swelling, Mouth Lesions, Mouth Pain, Odynophagia, Sore Throat, Throat Swelling, Tongue Swelling, Facial Pain, Neck Pain, Neck Mass, Other - Breasts Breasts: absent: As Per HPI, Change in Shape, Mass, Pain, Nipple Discharge, Nipple Inversion, Skin Changes, Swelling, Other - Cardiovascular Cardiovascular: absent: As Per HPI, Acrocyanosis, Chest Pain, Chest Pain at Rest , Chest Pain with Activity, Claudication, Diaphoresis, Dyspnea, Dyspnea on Exertion, Edema, Irregular Heart Rhythm, Pain Radiating to Arm/Neck/Jaw, Leg Edema, Leg Ulcers, Lightheadedness, Orthopnea, Palpitations, Paroxysmal Nocturnal Dyspnea, Pedal Edema, Radiating Pain, Rapid Heart Rate, Slow Heart Rate, Syncope, Other - Gastrointestinal Gastrointestinal: As Per HPI. absent: Diarrhea - Genitourinary Genitourinary: absent: As Per HPI, Change in Urinary Stream, Difficulty Urinating, Dysuria, Flank Pain, Hematuria, Pyuria, Nocturia, Urinary Incontinence, Urinary Frequency, Urinary Hesitance, Urinary Urgency, Voiding Freq/Small Amts, Freq UTI, Hx Renal/Bladder Calculi, Hx /Renal Surgery, Bladder Distension, Other - Reproductive: Female Reproductive:Female: absent: As Per HPI, Amenorrhea, Amenorrhea/ Control, Currently Menstual, Cycle <21 Days, Cycle >35 Days, Cycle Variable, Menses 1-7 Days, Menses >/= 8 Days, Menses Variable, Cycle > 4 Weeks Between, No Menses for 6 Months, Heavy Menses, Light Menses, Normal Menses, Spotting Between Cycles , S/P Hysterectomy, Menopausal, Post Menopausal, Premenarche, Abnormal Vaginal Bleeding, Dysmenorrhea, Dyspareunia, Genital Lesions, Genital Pruritis, Pelvic Pain, Prolapse Symptoms, Sexual Dysfunction, Vaginal Discharge, Vaginal Dryness , Vaginal Odor, Vaginal Pruritis, Other - Menstruation Menstruation: absent: As Per HPI, Amenorrhea, Amenorrhea/ Control, Currently Menstual, Cycle <21 Days, Cycle >35 Days, Cycle Variable, Menses 1-7 Days, Menses >/= 8 Days, Menses Variable, Cycle > 4 Weeks Between, No Menses for 6 Months, Heavy Menses, Light Menses, Normal Menses, Spotting Between Cycles , S/P Hysterectomy, Menopausal, Post Menopausal, Premenarche, Abnormal Vaginal Bleeding, Dysmenorrhea, Other - Musculoskeletal Musculoskeletal: As Per HPI - Integumentary Integumentary: As Per HPI, Skin Pain, Wounds - Neurological Neurological: absent: As Per HPI, Abnormal Gait, Abnormal Hearing, Abnormal Movements, Abnormal Speech, Behavioral Changes, Burning Sensations, Confusion, Convulsions, Disequilibrium, Dizziness, Numbness, Focal Weakness, Frequent Falls , Headaches, Lack of Coordination, Loss of Vision, Memory Loss, Paresthesias, Radicular Pain, Restless Legs, Sensory Deficit, Syncope, Tingling, Tremor, Vertigo, Weakness, Other Visual Disturbances, Other - Psychiatric Psychiatric: absent: As Per HPI, Abnormal Sleep Pattern, Anhedonia, Anxiety, Auditory Hallucinations, Behavioral Changes, Change in Appetite, Change in Libido, Confusion, Depression, Difficulty Concentrating, Hallucinations, Homicidal Ideation, Hopelessness, Irritability, Memory Loss, Mood Swings, Panic Attacks, Paranoia, Suicidal Ideation, Visual Hallucinations, Tactile Hallucinations, Other - Endocrine Endocrine: absent: As Per HPI, Change in Body Appearance, Change in Libido, Cold Intolorance, Deepening of Voice, Excessive Sweating, Fatigue, Flushing, Heat Intolorance, Increase in Ring/Shoe/Hat Size, Palpitations, Polydipsia, Polyphagia, Polyuria, Other - Hematologic/Lymphatic Hematologic: absent: As Per HPI, Easy Bleeding, Easy Bruising, Lymphadenopathy, Other 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) - NEUROLOGICAL Hx Transient Ischemic Attacks (TIA): Yes - HEENT Hx HEENT Problems: Yes Hx Cataracts: Yes (MARICARMEN.) - RENAL Hx Chronic Kidney Disease: No - ENDOCRINE/METABOLIC Hx Endocrine Disorders: No - HEMATOLOGICAL/ONCOLOGICAL Hx Blood Disorders: No - INTEGUMENTARY Hx Dermatological Problems: Yes (SURGICAL HARRY RIGHT LEG ) - MUSCULOSKELETAL/RHEUMATOLOGICAL Hx Arthritis: Yes - GASTROINTESTINAL Hx Gall Bladder Disease: Yes - GENITOURINARY/GYNECOLOGICAL Hx Genitourinary Disorders: No - PSYCHIATRIC Hx Substance Use: No - SURGICAL HISTORY Hx Cholecystectomy: Yes - ANESTHESIA Hx Anesthesia: Yes Hx Anesthesia Reactions: No Hx Malignant Hyperthermia: No Meds Allergies/Adverse Reactions: Allergies Allergy/AdvReac Type Severity Reaction Status Date / Time No Known Allergies Allergy Verified 10/06/17 14:32 - Medications Medications: Current Medications Acetaminophen (Tylenol 325mg Tab) 650 mg PO Q6 PRN PRN Reason: temperature 100.4F and above Last Admin: 12/25/17 00:57 Dose: 650 mg Albuterol (Ventolin Hfa 90 Mcg/Actuation (8 G)) 2 puff IH RBID [facility] Last Admin: 12/28/17 22:03 Dose: Not Given Albuterol/Ipratropium (Duoneb 3 Mg/0.5 Mg (3 Ml) Ud) 3 ml INH RQ6 [facility] Last Admin: 01/01/18 13:05 Dose: 3 ml Ascorbic Acid (Vitamin C 500 Mg Tab) 1,000 mg PO DAILY [facility] Last Admin: 01/01/18 10:13 Dose: 1,000 mg Aspirin (Ecotrin) 81 mg PO DAILY [facility] Last Admin: 01/01/18 10:13 Dose: 81 mg Clopidogrel Bisulfate (Plavix) 75 mg PO DAILY [facility] Last Admin: 01/01/18 10:12 Dose: 75 mg Docusate Sodium (Colace) 100 mg PO TID [facility] Last Admin: 01/01/18 17:32 Dose: 100 mg Enalapril Maleate (Vasotec) 20 mg PO DAILY [facility] Last Admin: 01/01/18 10:12 Dose: 20 mg Heparin Sodium (Porcine) (Heparin) 5,000 units SC Q8 [facility] Last Admin: 01/01/18 13:46 Dose: 5,000 units Morphine Sulfate (Morphine) 2 mg IVP Q4 PRN PRN Reason: Pain, moderate (4-7) Last Admin: 01/01/18 12:34 Dose: 2 mg Moxifloxacin HCl (Avelox) 400 mg PO Q24H [facility] PRN Reason: Protocol Stop: 01/04/18 11:00 Last Admin: 01/01/18 17:35 Dose: 400 mg Multivitamins (Hexavitamin) 1 tab PO DAILY [facility] Last Admin: 01/01/18 10:12 Dose: 1 tab Niacin (Niacin) 250 mg PO HS [facility] Last Admin: 12/31/17 22:04 Dose: 250 mg Yetic-6-Uvwk Ethyl Esters (Lovaza) 1 gm PO DAILY [facility] Last Admin: 01/01/18 10:12 Dose: 1 gm Oxycodone HCl (Oxycontin Extended Release Tab) 30 mg PO Q12 [facility] Stop: 01/03/18 22:01 Last Admin: 01/01/18 10:13 Dose: 30 mg Polyethylene Glycol (Miralax) 17 gm PO DAILY [facility] Last Admin: 01/01/18 10:12 Dose: Not Given Pregabalin (Lyrica) 75 mg PO DAILY [facility] Last Admin: 01/01/18 10:12 Dose: 75 mg Saccharomyces Boulardii (Florastor) 250 mg PO BID [facility] Last Admin: 01/01/18 17:35 Dose: 250 mg Fluticasone/Salmeterol (Advair Diskus 500/50) 1 puff INH RQ12 [facility] Last Admin: 01/01/18 09:50 Dose: 1 puff Vancomycin HCl (Vancocin (Oral Or Rectal Use)) 125 mg PO QID [facility] PRN Reason: Protocol Stop: 01/11/18 12:01 Last Admin: 01/01/18 13:47 Dose: 125 mg Zinc Sulfate (Zinc Sulfate 220 Mg Cap) 220 mg PO DAILY [facility] Last Admin: 01/01/18 10:12 Dose: 220 mg Physical Exam - Constitutional Appears: Non-toxic, Chronically Ill - Head Exam Head Exam: NORMOCEPHALIC - Eye Exam Eye Exam: PERRL Pupil Exam: NORMAL ACCOMODATION - ENT Exam ENT Exam: Mucous Membranes Dry - Neck Exam Neck exam: Negative for: Lymphadenopathy - Respiratory Exam Respiratory Exam: Decreased Breath Sounds - Cardiovascular Exam Cardiovascular Exam: REGULAR RHYTHM - GI/Abdominal Exam GI & Abdominal Exam: Diminished Bowel Sounds, Soft. absent: Distended, Guarding , Rebound, Rigid, Tenderness - Rectal Exam Rectal Exam: Deferred - Exam Exam: NORMAL INSPECTION - Extremities Exam Extremities exam: Positive for: pedal edema, tenderness. Negative for: calf tenderness, pedal pulses present Additional comments: decreased pulses wound dry in tact - Back Exam Back exam: absent: CVA tenderness (L), CVA tenderness (R) - Neurological Exam Neurological exam: Alert, CN II-XII Intact, Oriented x3, Reflexes Normal - Psychiatric Exam Psychiatric exam: Normal Mood - Skin Skin Exam: Dry Results - Vital Signs Recent Vital Signs: Last Vital Signs Temp 97.9 F 01/01/18 16:55 Pulse 86 01/01/18 16:55 Resp 18 01/01/18 16:55 BP 100/47 L 01/01/18 16:55 Pulse Ox 95 01/01/18 16:55 - Labs Result Diagrams: 01/01/18 07:25 01/01/18 07:25 Labs: Laboratory Results - last 24 hr 12/31/17 01/01/18 01/01/18 06:00 07:25 07:25 WBC 13.8 H RBC 2.70 L Hgb 8.3 L Hct 24.8 L MCV 92.0 MCH 30.8 MCHC 33.5 RDW 15.6 H Plt Count 298 MPV 8.5 Neut % (Auto) 82.6 H Lymph % (Auto) 9.2 L [place] % (Auto) 6.3 Eos % (Auto) 1.6 Baso % (Auto) 0.3 Neut # (Auto) 11.4 H Lymph # (Auto) 1.3 [place] # (Auto) 0.9 H Eos # (Auto) 0.2 Baso # (Auto) 0.0 Neutrophils % (Manual) 84 H Lymphocytes % (Manual) 10 L Monocytes % (Manual) 5 Basophils % (Manual) 1 Platelet Estimate Normal Large Platelets Present Hypochromasia (manual) Slight Ovalocytes Slight Sodium 144 Potassium 3.8 Chloride 106 Carbon Dioxide 32 H Anion Gap 11 BUN 15 Creatinine 0.4 L Est GFR ( Amer) > 60 Est GFR (Non-Af Amer) > 60 Random Glucose 105 Calcium 7.8 L Phosphorus 3.5 Magnesium 2.1 Total Bilirubin 0.5 AST 25 ALT 25 Alkaline Phosphatase 65 Total Protein 5.2 L Albumin 2.5 L Globulin 2.7 Albumin/Globulin Ratio 0.9 L C. difficile Ag & Toxin Positive H Assessment & Plan (1) Arterial occlusion, lower extremity Status: Acute (2) Clostridium difficile carrier Status: Acute (3) History of COPD Status: Acute (4) Hypertension Status: Acute (5) Hypertriglyceridemia Status: Acute - Assessment and Plan (Free Text) Assessment: during hospital stay it was decided skin graft needed but should wait pending jackin had c diff sent but no symptoms and came back positive- + Hx of multiple antibiotics in past interviewed with son present and denies any abd complaints or diarrhea no rx indicated at this time
[2018-01-02] MEDS: Albuterol-Ipratrop 3 mg / 0.5 (3 ml) UD INH SCH ×3 (01:47→13:07)
[2018-01-02] MEDS: Fluticasone-Salmeterol 500-50mcg Diskus INH SCH (07:28)
--- NOTE | 2018-01-02 08:02 | CP.PCM.PN ---
Subjective - Date & Time of Evaluation Date of Evaluation: 01/01/18 Time of Evaluation: 11:59 - Subjective Subjective: Podiatry Progress Note - Dr. Macias 82 year old female seen at bedside accompanied by her son for 1st and 2nd digit amputation wounds and lanced dorsal foot fluid blisters. Patient OOB in recliner , NAD. No acute events overnight. Reports continued pain to right lower extremity however decreasing. Dressing to foot and leg remain clean/dry/intact. She currently denies F/C/N/V/CP/SOB. Objective - Vital Signs/Intake and Output Vital Signs (last 24 hours): Temp Pulse Resp BP Pulse Ox 97.7 F 82 18 104/65 97 01/01/18 23:35 01/01/18 23:35 01/01/18 23:35 01/01/18 23:35 01/01/18 23:35 Intake and Output: 01/02/18 01/02/18 06:59 18:59 Intake Total 500 Balance 500 - Medications Medications: Current Medications Acetaminophen (Tylenol 325mg Tab) 650 mg PO Q6 PRN PRN Reason: temperature 100.4F and above Last Admin: 12/25/17 00:57 Dose: 650 mg Albuterol (Ventolin Hfa 90 Mcg/Actuation (8 G)) 2 puff IH RBID [facility] Last Admin: 12/28/17 22:03 Dose: Not Given Albuterol/Ipratropium (Duoneb 3 Mg/0.5 Mg (3 Ml) Ud) 3 ml INH RQ6 [facility] Last Admin: 01/02/18 07:28 Dose: 3 ml Ascorbic Acid (Vitamin C 500 Mg Tab) 1,000 mg PO DAILY [facility] Last Admin: 01/01/18 10:13 Dose: 1,000 mg Aspirin (Ecotrin) 81 mg PO DAILY [facility] Last Admin: 01/01/18 10:13 Dose: 81 mg Clopidogrel Bisulfate (Plavix) 75 mg PO DAILY [facility] Last Admin: 01/01/18 10:12 Dose: 75 mg Docusate Sodium (Colace) 100 mg PO TID [facility] Last Admin: 01/01/18 17:32 Dose: 100 mg Enalapril Maleate (Vasotec) 20 mg PO DAILY [facility] Last Admin: 01/01/18 10:12 Dose: 20 mg Heparin Sodium (Porcine) (Heparin) 5,000 units SC Q8 [facility] Last Admin: 01/02/18 05:56 Dose: 5,000 units Morphine Sulfate (Morphine) 2 mg IVP Q4 PRN PRN Reason: Pain, moderate (4-7) Last Admin: 01/01/18 12:34 Dose: 2 mg Moxifloxacin HCl (Avelox) 400 mg PO Q24H DENNIS PRN Reason: Protocol Stop: 01/04/18 11:00 Last Admin: 01/01/18 17:35 Dose: 400 mg Multivitamins (Hexavitamin) 1 tab PO DAILY [facility] Last Admin: 01/01/18 10:12 Dose: 1 tab Niacin (Niacin) 250 mg PO HS [facility] Last Admin: 01/01/18 22:01 Dose: 250 mg Nrrma-2-Rukt Ethyl Esters (Lovaza) 1 gm PO DAILY [facility] Last Admin: 01/01/18 10:12 Dose: 1 gm Oxycodone HCl (Oxycontin Extended Release Tab) 30 mg PO Q12 [facility] Stop: 01/03/18 22:01 Last Admin: 01/01/18 21:58 Dose: 30 mg Polyethylene Glycol (Miralax) 17 gm PO DAILY [facility] Last Admin: 01/01/18 10:12 Dose: Not Given Pregabalin (Lyrica) 75 mg PO DAILY [facility] Last Admin: 01/01/18 10:12 Dose: 75 mg Saccharomyces Boulardii (Florastor) 250 mg PO BID [facility] Last Admin: 01/01/18 17:35 Dose: 250 mg Fluticasone/Salmeterol (Advair Diskus 500/50) 1 puff INH RQ12 [facility] Last Admin: 01/02/18 07:28 Dose: 1 puff Zinc Sulfate (Zinc Sulfate 220 Mg Cap) 220 mg PO DAILY [facility] Last Admin: 01/01/18 10:12 Dose: 220 mg - Labs Labs: 01/01/18 07:25 01/01/18 07:25 PT 13.3 SECONDS (9.7-12.2) H 12/24/17 07:20 INR 1.2 12/24/17 07:20 APTT 33 SECONDS (21-34) 12/24/17 07:20 - Constitutional Appears: Well, Non-toxic, No Acute Distress - Extremities Exam Additional comments: Right lower extremity focused exam: Vasc: DP and PT pulses are palpable 1/4. Temperature runs warm to warm proximal to distal. Localized edema noted to the remaining hallux. Cap refill time to remaining digits: < 3 sec. Derm: Partial thickness wound to hallux amputation site measuring approximately 0.6 x 3.2 cm with necrotic base, margins stable, no gapping, tunneling or undermining noted. 2nd digit well healed, stable cicatrix noted. No active drainage, no fluctuance, no malodor noted. Several fluid filled blisters noted to dorsum of right foot, transparent in appearance with clear fluid, one with sanguinous fluid. Ortho: 1st and 2nd digit partial amputations noted. Mild tenderness to palpation along right heel. Tenderness to palpation of dorsum of right foot and entirety of right leg. No evidence of deep tissue injury or pre-ulcerative pressure ulcerations. Pedal muscle strength is graded 4/5 in inversion and eversion of leg muscle groups, graded 5/5 in dorsiflexory and plantarflexory leg muscle groups. Neuro: gross and protective sensation diminished - Neurological Exam Neurological Exam: Alert, Awake, Oriented x3 - Psychiatric Exam Psychiatric exam: Normal Affect, Normal Mood Assessment and Plan - Assessment and Plan (Free Text) Assessment: 82 year old female with 1) left hallux post-surgical wound secondary to PAD and 2) fluid filled blisters to right foot Plan: Pt seen and evaluated at bedside Discussed with Dr. Macias Chart, labs, and vitals reviewed - afebrile, WBC 13.8 Local wound care performed to right foot with CLAUDE Burns per vascular surgery team, posterior leg wound to be left untouched with plans for future skin graft No surgical intervention at this time per podiatry Patient to follow up with Dr. Macias upon d/c Podiatry will continue to follow while in house
[2018-01-02 08:15] LABS: BASO % 0.4 % (0.0-2.0); EOS # 0.4 K/uL (0.0-0.7); EOS % 3.2 % (0.0-4.0); HEMOGLOBIN 8.4 g/dL (11.0-16.0); LYMPH # 1.6 K/uL (1.0-4.3); LYMPH % 13.8 % (20.0-40.0); MEAN CELL VOLUME 93.2 fL (81.0-99.0); MEAN CORPUSCULAR HEMOGLOBIN 30.8 pg (27.0-31.0); MEAN PLATELET VOLUME 8.7 fL (7.2-11.7); MONO % 8.1 % (0.0-10.0); NEUT # 8.8 K/uL (1.8-7.0); NEUT % 74.5 % (50.0-75.0); RBC 2.74 Mil/uL (3.80-5.20); WHITE BLOOD COUNT 11.8 K/uL (4.8-10.8)
[2018-01-02 08:28] VITALS: PULSE 90; RESP 20; TEMP 97.9; O2SAT 100
[2018-01-02 08:40] LABS: ALBUMIN 2.6 g/dL (3.5-5.0); ALT/SGPT 29 U/L (9-52); AST/SGOT 34 U/L (14-36); BLOOD UREA NITROGEN 20 mg/dL (7-17); CALCIUM 8.1 mg/dl (8.6-10.4); GFR AFRICAN-AMERICAN > 60; GFR NON-AFRICAN AMERICAN > 60
[2018-01-02] MEDS: Saccharomyces Boulardi 250 mg Cap PO SCH (10:08)
[2018-01-02] MEDS: Multiple Vitamins Tab PO SCH (10:08)
[2018-01-02 10:09] VITALS: BP 111/64
[2018-01-02] MEDS: POLYETHYLENE GLYCOL 3350 17 GM/Dose PACKET PO SCH (10:09)
[2018-01-02] MEDS: oxyCODONE 10 mg ER Tab (oxyCONTIN) PO SCH (10:13)
[2018-01-02] MEDS: Omega-3-Acid Ethyl Esters 1 GM Cap PO SCH (10:14)
--- NOTE | 2018-01-02 11:55 | CP.PCM.DIS ---
<Faviola Hill - Last Filed: 01/02/18 12:24> Provider - Provider Date of Admission: 12/21/17 11:48 Attending physician: Shirin Lake MD Primary care physician: Dr. Vizcaino Consults: Dr. Mallory (vascular surgery) Dr. Macias (podiatry) Dr. Land (ID) Time Spent in preparation of Discharge (in minutes): 40 Diagnosis - Discharge Diagnosis (1) Arterial occlusion, lower extremity Status: Chronic (2) Ulcer of right lower leg Status: Chronic (3) Ischemia of right lower extremity Status: Chronic (4) History of COPD Status: Chronic (5) Low HDL (under 40) Status: Chronic (6) Clostridium difficile carrier Status: Acute (7) Hypertriglyceridemia Status: Chronic (8) Hypertension Status: Chronic (9) Constipation Status: Resolved Hospital Course - Lab Results Lab Results: Micro Results 12/31/17 11:10 Blood-Venous Blood Culture - Preliminary NO GROWTH AFTER 48 HOURS 12/31/17 11:10 Blood-Venous Blood Culture - Preliminary NO GROWTH AFTER 48 HOURS 12/31/17 11:00 Urine,Clean Catch Urine Culture - Final No Growth (<1,000 CFU/ML) 12/25/17 13:04 Nose MRSA Culture - Final MRSA NOT DETECTED 12/21/17 11:00 Blood-Venous Blood Culture - Final NO GROWTH AFTER 5 DAYS 12/21/17 11:00 Blood-Venous Gram Stain - Final TEST NOT PERFORMED 12/21/17 10:19 Blood-Venous Blood Culture - Final NO GROWTH AFTER 5 DAYS 12/21/17 10:19 Blood-Venous Gram Stain - Final TEST NOT PERFORMED 12/24/17 21:47 Nose MRSA Culture (Admit) - Final MRSA NOT DETECTED 12/21/17 10:35 Leg - Right Gram Stain - Final 12/21/17 10:35 Leg - Right Wound Culture - Final Klebsiella Oxytoca Corynebacterium Species Most Recent Lab Values WBC 11.8 K/uL (4.8-10.8) H 01/02/18 08:00 RBC 2.74 Mil/uL (3.80-5.20) L 01/02/18 08:00 Hgb 8.4 g/dL (11.0-16.0) L 01/02/18 08:00 Hct 25.6 % (34.0-47.0) L 01/02/18 08:00 MCV 93.2 fL (81.0-99.0) 01/02/18 08:00 MCH 30.8 pg (27.0-31.0) 01/02/18 08:00 MCHC 33.0 g/dL (33.0-37.0) 01/02/18 08:00 RDW 16.0 % (11.5-14.5) H 01/02/18 08:00 Plt Count 322 K/uL (130-400) 01/02/18 08:00 MPV 8.7 fL (7.2-11.7) 01/02/18 08:00 Neut % (Auto) 74.5 % (50.0-75.0) 01/02/18 08:00 Lymph % (Auto) 13.8 % (20.0-40.0) L 01/02/18 08:00 [place] % (Auto) 8.1 % (0.0-10.0) 01/02/18 08:00 Eos % (Auto) 3.2 % (0.0-4.0) 01/02/18 08:00 Baso % (Auto) 0.4 % (0.0-2.0) 01/02/18 08:00 Neut # (Auto) 8.8 K/uL (1.8-7.0) H 01/02/18 08:00 Lymph # (Auto) 1.6 K/uL (1.0-4.3) 01/02/18 08:00 [place] # (Auto) 1.0 K/uL (0.0-0.8) H 01/02/18 08:00 Eos # (Auto) 0.4 K/uL (0.0-0.7) 01/02/18 08:00 Baso # (Auto) 0.0 K/uL (0.0-0.2) 01/02/18 08:00 Neutrophils % (Manual) 84 % (50-75) H 01/01/18 07:25 Band Neutrophils % 2 % (0-2) 12/25/17 05:48 Lymphocytes % (Manual) 10 % (20-40) L 01/01/18 07:25 Monocytes % (Manual) 5 % (0-10) 01/01/18 07:25 Basophils % (Manual) 1 % (0-2) 01/01/18 07:25 Platelet Estimate Normal (NORMAL) 01/01/18 07:25 Large Platelets Present 01/01/18 07:25 Hypochromasia (manual) Slight 01/01/18 07:25 Anisocytosis (manual) Slight 12/25/17 05:48 Ovalocytes Slight 01/01/18 07:25 PT 13.3 SECONDS (9.7-12.2) H 12/24/17 07:20 INR 1.2 12/24/17 07:20 APTT 33 SECONDS (21-34) 12/24/17 07:20 Puncture Site Lb 12/30/17 08:45 pCO2 33 mm/Hg (35-45) L 12/30/17 08:45 pO2 69 mm/Hg (80-100) L 12/30/17 08:45 HCO3 24.5 mmol/L (21-28) 12/30/17 08:45 ABG pH 7.45 (7.35-7.45) 12/30/17 08:45 ABG Total CO2 23.9 mmol/L (22-28) 12/30/17 08:45 ABG Base Excess -0.4 mmol/L (-2.0-3.0) 12/30/17 08:45 Seven Test Na 12/30/17 08:45 ABG Potassium 2.7 mmol/L (3.6-5.2) L 12/30/17 08:45 Sodium 142.0 mmol/l (132-148) 12/30/17 08:45 Chloride 114.0 mmol/L (98-107) H 12/30/17 08:45 Glucose 106 mg/dl (65-105) H 12/30/17 08:45 Lactate 0.5 mmol/L (0.7-2.1) L 12/30/17 08:45 Liter Flow 3.0 12/30/17 08:45 Sodium 143 mmol/L (132-148) 01/02/18 08:00 Potassium 4.2 mmol/L (3.6-5.2) 01/02/18 08:00 Chloride 105 mmol/L (98-107) 01/02/18 08:00 Carbon Dioxide 33 mmol/L (22-30) H 01/02/18 08:00 Anion Gap 10 (10-20) 01/02/18 08:00 BUN 20 mg/dL (7-17) H 01/02/18 08:00 Creatinine 0.5 mg/dL (0.7-1.2) L 01/02/18 08:00 Est GFR ( Amer) > 60 01/02/18 08:00 Est GFR (Non-Af Amer) > 60 01/02/18 08:00 Random Glucose 92 mg/dL (65-105) 01/02/18 08:00 Hemoglobin A1c 5.4 % (4.2-6.5) 12/22/17 08:02 Calcium 8.1 mg/dl (8.6-10.4) L 01/02/18 08:00 Phosphorus 3.7 mg/dL (2.5-4.5) 01/02/18 08:00 Magnesium 2.3 mg/dL (1.6-2.3) 01/02/18 08:00 Total Bilirubin 0.4 mg/dL (0.2-1.3) 01/02/18 08:00 AST 34 U/L (14-36) 01/02/18 08:00 ALT 29 U/L (9-52) 01/02/18 08:00 Alkaline Phosphatase 69 U/L (38-126) 01/02/18 08:00 Total Protein 5.3 g/dL (6.3-8.3) L 01/02/18 08:00 Albumin 2.6 g/dL (3.5-5.0) L 01/02/18 08:00 Globulin 2.7 gm/dL (2.2-3.9) 01/02/18 08:00 Albumin/Globulin Ratio 1.0 (1.0-2.1) 01/02/18 08:00 Triglycerides 125 mg/dL (0-149) 12/22/17 08:02 Cholesterol 128 mg/dL (0-199) 12/22/17 08:02 LDL Cholesterol Direct 72 mg/dL (0-129) 12/22/17 08:02 HDL Cholesterol 27 mg/dL (30-70) L 12/22/17 08:02 Arterial Blood Potassium 2.7 mmol/L (3.6-5.2) L 12/30/17 08:45 Urine Color Yellow (YELLOW) 12/31/17 14:13 Urine Clarity Clear (Clear) 12/31/17 14:13 Urine pH 5.0 (5.0-8.0) 12/31/17 14:13 Ur Specific [place] 1.018 (1.003-1.030) 12/31/17 14:13 Urine Protein Negative mg/dL (NEGATIVE) 12/31/17 14:13 Urine Glucose (UA) Normal mg/dL (Normal) 12/31/17 14:13 Urine Ketones 1+ mg/dL (NEGATIVE) H 12/31/17 14:13 Urine Blood Negative (NEGATIVE) 12/31/17 14:13 Urine Nitrate Negative (NEGATIVE) 12/31/17 14:13 Urine Bilirubin Negative (NEGATIVE) 12/31/17 14:13 Urine Urobilinogen Normal mg/dL (0.2-1.0) 12/31/17 14:13 Ur Leukocyte Esterase Trace Kaitlyn/uL (Negative) 12/31/17 14:13 Urine WBC (Auto) 2 /hpf (0-5) 12/31/17 14:13 Urine RBC (Auto) 1 /hpf (0-3) 12/31/17 14:13 Ur Squamous Epith Cells 2 /hpf (0-5) 12/31/17 14:13 Urine Bacteria Rare (<OCC) 12/31/17 14:13 C. difficile Ag & Toxin Positive (NEGATIVE) H 12/31/17 06:00 Blood Type O POSITIVE 12/24/17 14:15 Antibody Screen Negative 12/24/17 14:15 - Hospital Course Hospital Course: HPI: "Patient is a 82 year old female with PMHx PVD, HTN, arthritis, Raynoud's phenomenon, Osteoporosis, TIA(x3), peripheral edema, fractures (ribs and 4 compression cervical fractures) who was brought to the ED by her son with complaints of right lower leg pain, burning sensation and coldness, which started 3-4 days ago. 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 Patient was seen for regular post-op care approximately [address] Mallory with Unremarkable results. Patient presents with 9/10 leg pain today. Patient denies fever, chills, nausea, vomiting, numbness. As per son, who is patient's paperhanger and painter, patient has been compliant with all of her medications. " Patient admitted for ischemia and ulcer of right lower extremity. Arterial duplex right lower extremity (): Occuluded right mid superficial femoral to posterior tibial artery bypass graft, anterior tibial and dorsalis pedis arteries. 30-49% stenosis of the right proximal superficial femoral artery. Abdominal Angiography (12/21/17) showed right femoral/popliteal arteries: Mild atherosclerotic disease of common femoral artery. [id number] atherosclerotic disease of superficial femoral artery. Occlusion of popliteal artery. Right calf/foot arteries: Reconstituted diminished, attenuated intermittent flow to anterior tibial, posterior tibial, and peroneal arteries. 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 Amputation second digit to level shaft of proximal phalanx. Dr. Mallory (vascular surgery) was consulted. On 12/24/17 Dr. Mallory performed an aortofemoral angiogram via left groin with selective catheterization of right femoral artery and thrombolysis of the occluded bypass along with balloon angioplasty of posterior tibial artery and proximal anastomosis (distal sfa). perclose left groin. ceployment of 10x6 viabahn and 7x39 vbx at ruptures proximal anastamosis. Dr. Mallory plans for possible tissue grafting, but patient needs more time for tissue to heal. For the ulcer of the right leg podiatry (Dr. Macias) was consulted. Wound culture came back positive for+ Klebsiella Oxytoca and Corynebacterium Species. Patient originally was treated with Cipro which was switched to Avelox 400mg po q12h for better coverage. Patient's hypertension and hypertriglyceridemia were managed with home medications: Vasotec 20mg po daily and Lovaza 1 tab po daily. Patient found to have low HDL Niacin 240mg po HS started. Lipid panel was TGL: 125, Cholesterol:128, LDL:72 and HDL:27. Patient's history of COPD was managed with Duonebds and Advair. Patient became constipated while in the hospital and was given medications and 2 enemas which resolved the constipation. Patient's stool was checked for c. dif which came back positive. Patient is a carrier as asymptomatic. Patient will not need treatment or isolation. Patient to be discharged to [facility] and will need to follow up with both podiatry, Dr. Macias, and vascular surgery, Dr. Mallory. This is a summary of the patient's hospital course, please see chart for full details. Discharge Exam - Additional Findings Additional findings: - Constitutional Appears: Well, No Acute Distress - Head Exam Head Exam: ATRAUMATIC, NORMAL INSPECTION - Eye Exam Eye Exam: EOMI, Normal appearance - ENT Exam ENT Exam: Mucous Membranes Moist - Respiratory Exam Respiratory Exam: NORMAL BREATHING PATTERN. absent: Prolonged Expiratory Phase , Rhonchi, Wheezes, Respiratory Distress - GI/Abdominal Exam GI & Abdominal Exam: Soft, Normal Bowel Sounds. absent: Distended, Firm, Guarding, Rigid, Tenderness - Extremities Exam Additional comments: Right leg extremity dressing clean, dry and intact - Neurological Exam Neurological Exam: Alert, Awake, Oriented x3 - Psychiatric Exam Psychiatric exam: Depressed - Skin Skin Exam: Normal Color Discharge Plan - Follow Up Plan Condition: FAIR Disposition: REHAB FACILITY/REHAB UNIT Additional Instructions: Instructions for [facility]: Please continue current medications. Please see signed medication list included with discharge paper work. The right foot lesions involving amputation site Toe #1 and Toe #2 should have Medi Honey applied and covered with sterile dressing every other day starting on Thursday01/04/18. DO NOT rapidly/agressively remove the dressing on the Right Lower Leg. This area should have dressing removed very carefully with application of sterile saline first before daily changing so that the underlying fibrous tissue is not damaged. PLEASE BE CAREFUL. If you are not sure about this dressing change please contact Vascular Surgeon Dr. Mallory at [phone]. Other than this dressing change, this area of the Right Lower Leg should NOT be manipulated/ debrided by anyone other than Dr. Mallory. Patient will need follow up with Podiatry Dr. Macias ([phone]) upon discharge. Patient will need follow up with Vascular Surgeon Dr. Mallory ([phone]) early on the week of 01/04/18. Michael Moody D.O. <Michael Moody - Last Filed: 01/02/18 17:30> Provider - Provider Date of Admission: 12/21/17 11:48 Attending physician: Shirin Lake MD Hospital Course - Lab Results Lab Results: Micro Results 12/31/17 11:10 Blood-Venous Blood Culture - Preliminary NO GROWTH AFTER 48 HOURS 12/31/17 11:10 Blood-Venous Blood Culture - Preliminary NO GROWTH AFTER 48 HOURS 12/31/17 11:00 Urine,Clean Catch Urine Culture - Final No Growth (<1,000 CFU/ML) 12/25/17 13:04 Nose MRSA Culture - Final MRSA NOT DETECTED 12/21/17 11:00 Blood-Venous Blood Culture - Final NO GROWTH AFTER 5 DAYS 12/21/17 11:00 Blood-Venous Gram Stain - Final TEST NOT PERFORMED 12/21/17 10:19 Blood-Venous Blood Culture - Final NO GROWTH AFTER 5 DAYS 12/21/17 10:19 Blood-Venous Gram Stain - Final TEST NOT PERFORMED 12/24/17 21:47 Nose MRSA Culture (Admit) - Final MRSA NOT DETECTED 12/21/17 10:35 Leg - Right Gram Stain - Final 12/21/17 10:35 Leg - Right Wound Culture - Final Klebsiella Oxytoca Corynebacterium Species Most Recent Lab Values WBC 11.8 K/uL (4.8-10.8) H 01/02/18 08:00 RBC 2.74 Mil/uL (3.80-5.20) L 01/02/18 08:00 Hgb 8.4 g/dL (11.0-16.0) L 01/02/18 08:00 Hct 25.6 % (34.0-47.0) L 01/02/18 08:00 MCV 93.2 fL (81.0-99.0) 01/02/18 08:00 MCH 30.8 pg (27.0-31.0) 01/02/18 08:00 MCHC 33.0 g/dL (33.0-37.0) 01/02/18 08:00 RDW 16.0 % (11.5-14.5) H 01/02/18 08:00 Plt Count 322 K/uL (130-400) 01/02/18 08:00 MPV 8.7 fL (7.2-11.7) 01/02/18 08:00 Neut % (Auto) 74.5 % (50.0-75.0) 01/02/18 08:00 Lymph % (Auto) 13.8 % (20.0-40.0) L 01/02/18 08:00 [place] % (Auto) 8.1 % (0.0-10.0) 01/02/18 08:00 Eos % (Auto) 3.2 % (0.0-4.0) 01/02/18 08:00 Baso % (Auto) 0.4 % (0.0-2.0) 01/02/18 08:00 Neut # (Auto) 8.8 K/uL (1.8-7.0) H 01/02/18 08:00 Lymph # (Auto) 1.6 K/uL (1.0-4.3) 01/02/18 08:00 [place] # (Auto) 1.0 K/uL (0.0-0.8) H 01/02/18 08:00 Eos # (Auto) 0.4 K/uL (0.0-0.7) 01/02/18 08:00 Baso # (Auto) 0.0 K/uL (0.0-0.2) 01/02/18 08:00 Neutrophils % (Manual) 84 % (50-75) H 01/01/18 07:25 Band Neutrophils % 2 % (0-2) 12/25/17 05:48 Lymphocytes % (Manual) 10 % (20-40) L 01/01/18 07:25 Monocytes % (Manual) 5 % (0-10) 01/01/18 07:25 Basophils % (Manual) 1 % (0-2) 01/01/18 07:25 Platelet Estimate Normal (NORMAL) 01/01/18 07:25 Large Platelets Present 01/01/18 07:25 Hypochromasia (manual) Slight 01/01/18 07:25 Anisocytosis (manual) Slight 12/25/17 05:48 Ovalocytes Slight 01/01/18 07:25 PT 13.3 SECONDS (9.7-12.2) H 12/24/17 07:20 INR 1.2 12/24/17 07:20 APTT 33 SECONDS (21-34) 12/24/17 07:20 Puncture Site Lb 12/30/17 08:45 pCO2 33 mm/Hg (35-45) L 12/30/17 08:45 pO2 69 mm/Hg (80-100) L 12/30/17 08:45 HCO3 24.5 mmol/L (21-28) 12/30/17 08:45 ABG pH 7.45 (7.35-7.45) 12/30/17 08:45 ABG Total CO2 23.9 mmol/L (22-28) 12/30/17 08:45 ABG Base Excess -0.4 mmol/L (-2.0-3.0) 12/30/17 08:45 Seven Test Na 12/30/17 08:45 ABG Potassium 2.7 mmol/L (3.6-5.2) L 12/30/17 08:45 Sodium 142.0 mmol/l (132-148) 12/30/17 08:45 Chloride 114.0 mmol/L (98-107) H 12/30/17 08:45 Glucose 106 mg/dl (65-105) H 12/30/17 08:45 Lactate 0.5 mmol/L (0.7-2.1) L 12/30/17 08:45 Liter Flow 3.0 12/30/17 08:45 Sodium 143 mmol/L (132-148) 01/02/18 08:00 Potassium 4.2 mmol/L (3.6-5.2) 01/02/18 08:00 Chloride 105 mmol/L (98-107) 01/02/18 08:00 Carbon Dioxide 33 mmol/L (22-30) H 01/02/18 08:00 Anion Gap 10 (10-20) 01/02/18 08:00 BUN 20 mg/dL (7-17) H 01/02/18 08:00 Creatinine 0.5 mg/dL (0.7-1.2) L 01/02/18 08:00 Est GFR ( Amer) > 60 01/02/18 08:00 Est GFR (Non-Af Amer) > 60 01/02/18 08:00 Random Glucose 92 mg/dL (65-105) 01/02/18 08:00 Hemoglobin A1c 5.4 % (4.2-6.5) 12/22/17 08:02 Calcium 8.1 mg/dl (8.6-10.4) L 01/02/18 08:00 Phosphorus 3.7 mg/dL (2.5-4.5) 01/02/18 08:00 Magnesium 2.3 mg/dL (1.6-2.3) 01/02/18 08:00 Total Bilirubin 0.4 mg/dL (0.2-1.3) 01/02/18 08:00 AST 34 U/L (14-36) 01/02/18 08:00 ALT 29 U/L (9-52) 01/02/18 08:00 Alkaline Phosphatase 69 U/L (38-126) 01/02/18 08:00 Total Protein 5.3 g/dL (6.3-8.3) L 01/02/18 08:00 Albumin 2.6 g/dL (3.5-5.0) L 01/02/18 08:00 Globulin 2.7 gm/dL (2.2-3.9) 01/02/18 08:00 Albumin/Globulin Ratio 1.0 (1.0-2.1) 01/02/18 08:00 Triglycerides 125 mg/dL (0-149) 12/22/17 08:02 Cholesterol 128 mg/dL (0-199) 12/22/17 08:02 LDL Cholesterol Direct 72 mg/dL (0-129) 12/22/17 08:02 HDL Cholesterol 27 mg/dL (30-70) L 12/22/17 08:02 Arterial Blood Potassium 2.7 mmol/L (3.6-5.2) L 12/30/17 08:45 Urine Color Yellow (YELLOW) 12/31/17 14:13 Urine Clarity Clear (Clear) 12/31/17 14:13 Urine pH 5.0 (5.0-8.0) 12/31/17 14:13 Ur Specific [place] 1.018 (1.003-1.030) 12/31/17 14:13 Urine Protein Negative mg/dL (NEGATIVE) 12/31/17 14:13 Urine Glucose (UA) Normal mg/dL (Normal) 12/31/17 14:13 Urine Ketones 1+ mg/dL (NEGATIVE) H 12/31/17 14:13 Urine Blood Negative (NEGATIVE) 12/31/17 14:13 Urine Nitrate Negative (NEGATIVE) 12/31/17 14:13 Urine Bilirubin Negative (NEGATIVE) 12/31/17 14:13 Urine Urobilinogen Normal mg/dL (0.2-1.0) 12/31/17 14:13 Ur Leukocyte Esterase Trace Kaitlyn/uL (Negative) 12/31/17 14:13 Urine WBC (Auto) 2 /hpf (0-5) 12/31/17 14:13 Urine RBC (Auto) 1 /hpf (0-3) 12/31/17 14:13 Ur Squamous Epith Cells 2 /hpf (0-5) 12/31/17 14:13 Urine Bacteria Rare (<OCC) 12/31/17 14:13 C. difficile Ag & Toxin Positive (NEGATIVE) H 12/31/17 06:00 Blood Type O POSITIVE 12/24/17 14:15 Antibody Screen Negative 12/24/17 14:15 Attending/Attestation - Attestation I have personally seen and examined this patient.: Yes I have fully participated in the care of the patient.: Yes I have reviewed all pertinent clinical information, including history, physical exam and plan: Yes
--- NOTE | 2018-01-02 16:32 | CP.PCM.PN ---
Subjective - Date & Time of Evaluation Date of Evaluation: 01/02/18 Time of Evaluation: 11:45 - Subjective Subjective: Podiatry Progress Note - Dr. Macias 82 year old female seen at bedside for 1st and 2nd digit amputation wounds and lanced dorsal foot fluid blisters. Patient OOB in recliner, NAD. No acute events overnight. Reports continued pain to right lower extremity however decreasing. Dressing to foot and leg remain clean/dry/intact. Reports that she is going home today. She currently denies F/C/N/V/CP/SOB. Objective - Vital Signs/Intake and Output Vital Signs (last 24 hours): Temp Pulse Resp BP Pulse Ox 97.9 F 90 20 111/64 100 01/02/18 07:00 01/02/18 07:00 01/02/18 07:00 01/02/18 10:09 01/02/18 07:00 Intake and Output: 01/02/18 01/02/18 06:59 18:59 Intake Total 500 300 Balance 500 300 - Labs Labs: 01/02/18 08:00 01/02/18 08:00 PT 13.3 SECONDS (9.7-12.2) H 12/24/17 07:20 INR 1.2 12/24/17 07:20 APTT 33 SECONDS (21-34) 12/24/17 07:20 - Constitutional Appears: Well, Non-toxic, No Acute Distress - Extremities Exam Additional comments: Right lower extremity focused exam: Vasc: DP and PT pulses are palpable 1/4. Temperature runs warm to warm proximal to distal. Localized edema noted to the remaining hallux. Cap refill time to remaining digits: < 3 sec. Derm: Partial thickness wound to hallux amputation site measuring approximately 0.6 x 3.2 cm with necrotic base, margins stable, no gapping, tunneling or undermining noted. 2nd digit well healed, stable cicatrix noted. No active drainage, no fluctuance, no malodor noted. Several fluid filled blisters noted to dorsum of right foot, transparent in appearance with clear fluid, one with sanguinous fluid. Ortho: 1st and 2nd digit partial amputations noted. Mild tenderness to palpation along right heel. Tenderness to palpation of dorsum of right foot and entirety of right leg. No evidence of deep tissue injury or pre-ulcerative pressure ulcerations. Pedal muscle strength is graded 4/5 in inversion and eversion of leg muscle groups, graded 5/5 in dorsiflexory and plantarflexory leg muscle groups. Neuro: gross and protective sensation diminished - Neurological Exam Neurological Exam: Alert, Awake, Oriented x3 - Psychiatric Exam Psychiatric exam: Normal Affect, Normal Mood Assessment and Plan - Assessment and Plan (Free Text) Assessment: 82 year old female with 1) left hallux post-surgical wound secondary to PAD and 2) fluid filled blisters to right foot Plan: Pt seen and evaluated at bedside Discussed with Dr. Macias Chart, labs, and vitals reviewed - afebrile, WBC 11.8 Local wound care performed to right foot with CLAUDE Burns per vascular surgery team, posterior leg wound to be left untouched with plans for future skin graft No surgical intervention at this time per podiatry Patient to follow up with Dr. Macias upon d/c Podiatry will continue to follow while in house
== END 2018-01-02 15:15 | DRG 271 ==
LOC: C.ER 09:03 → C.9E 11:48 → C.5S 13:15 → C.9I 12-24 14:03 → C.5S 12-25 13:31
PROVIDERS: ADMIT Internal Medicine; ATTEND Internal Medicine
PROC: 047K35Z Dilation of Right Femoral Artery with Two Drug-eluting Intraluminal Devices, Percutaneous Approach (ICD-10-PCS; principal; 2017-12-24)
PROC: 04CK3ZZ Extirpation of Matter from Right Femoral Artery, Percutaneous Approach (ICD-10-PCS; 2017-12-24)
PROC: B41D1ZZ Fluoroscopy of Aorta and Bilateral Lower Extremity Arteries using Low Osmolar Contrast (ICD-10-PCS; 2017-12-24)
DX: T82.858A Stenosis of other vascular prosthetic devices, implants and grafts, initial encounter (principal); L97.919 Non-pressure chronic ulcer of unspecified part of right lower leg with unspecified severity; I77.2 Rupture of artery; I77.1 Stricture of artery; I99.8 Other disorder of circulatory system; J44.9 Chronic obstructive pulmonary disease, unspecified; Z22.1 Carrier of other intestinal infectious diseases; E78.1 Pure hyperglyceridemia; K59.00 Constipation, unspecified; Z86.73 Personal history of transient ischemic attack (TIA), and cerebral infarction without residual deficits; M81.0 Age-related osteoporosis without current pathological fracture; M19.90 Unspecified osteoarthritis, unspecified site; Z79.82 Long term (current) use of aspirin; Z79.02 Long term (current) use of antithrombotics/antiplatelets; I11.9 Hypertensive heart disease without heart failure; B96.1 Klebsiella pneumoniae [K. pneumoniae] as the cause of diseases classified elsewhere; Z89.421 Acquired absence of other right toe(s); I70.201 Unspecified atherosclerosis of native arteries of extremities, right leg; I73.00 Raynaud's syndrome without gangrene; R23.8 Other skin changes; R60.9 Edema, unspecified

== ENCOUNTER 2018-02-06 22:34 | Inpatient (IN) | payer MEDICARE, OTHER ==
[2018-02-06 22:34] VITALS: BMI 28.3
[2018-02-07 00:01] LABS: BASO # 0.1 K/uL (0.0-0.2); BASO % 0.5 % (0.0-2.0); EOS # 0.1 K/uL (0.0-0.7); HEMOGLOBIN 10.4 g/dL (11.0-16.0); LYMPH # 1.6 K/uL (1.0-4.3); LYMPH % 15.1 % (20.0-40.0); MEAN CELL VOLUME 91.2 fL (81.0-99.0); MEAN CORPUSCULAR HEMOGLOBIN 29.7 pg (27.0-31.0); MEAN CORPUSCULAR HGB CONC 32.5 g/dL (33.0-37.0); MEAN PLATELET VOLUME 8.7 fL (7.2-11.7); MONO # 0.6 K/uL (0.0-0.8); MONO % 5.9 % (0.0-10.0); NEUT # 8.4 K/uL (1.8-7.0); NEUT % 77.5 % (50.0-75.0); RBC 3.49 Mil/uL (3.80-5.20); RED CELL DISTRIBUTION WIDTH 17.4 % (11.5-14.5); WHITE BLOOD COUNT 10.9 K/uL (4.8-10.8)
--- NOTE | 2018-02-07 00:04 | C.PDOC ---
History Of Present Illness 82 y/o F c PSHx graft & stent to R lower leg p/w R heel coldness and blue discoloration noticed by son today at custodial. Patient with no change in baseline pain, swelling, fever, chest pain, dyspnea, vomiting. Time Seen by Provider: 02/06/18 22:55 Chief Complaint (Nursing): Lower Extremity Problem/Injury Past Medical History Vital Signs: Last Vital Signs Temp 98 F 02/06/18 22:44 Pulse 80 02/06/18 22:44 Resp 14 02/06/18 22:44 BP 132/41 L 02/06/18 22:44 Pulse Ox 96 02/06/18 22:44 - Medical History PMH: Arthritis, COPD (WORK RELATED ENVIRONMENT EXPOSURE), Fractures, Gall Bladder Disease, HTN, Osteoporosis, Peripheral Edema, TIA Denies: Chronic Kidney Disease Surgical History: Cholecystectomy, Endoscopy - [facility] Procedures BYPASS R POPL ART TO POPLIT ART, PERC ENDO APPROACH (10/06/17) DILATION OF R FEM ART WITH 2 DRUG-ELUT, PERC APPROACH (12/21/17) EXTIRPATION OF MATTER FROM R FEM ART, PERC APPROACH (12/21/17) FLUOROSCOPY OF AORTA, BI LE ART USING L OSM CONTRAST (12/21/17) INSERTION OF INFUSION DEV INTO SUP VENA CAVA, PERC APPROACH (10/06/17) PLAIN RADIOGRAPHY OF AORTA, BI LE ART USING L OSM CONTRAST (10/06/17) Family History: States: No Known Family Hx - Social History Hx Alcohol Use: No Hx Substance Use: No - Immunization History Hx Tetanus Toxoid Vaccination: No Hx Influenza Vaccination: No Hx Pneumococcal Vaccination: No Review Of Systems Except As Marked, All Systems Reviewed And Found Negative. Constitutional: Negative for: Fever Cardiovascular: Negative for: Chest Pain Physical Exam - Physical Exam Additional Physical Exam Comments: Gen: NAD Head: Atraumatic Eyes: No scleral icterus ENT: MMM Neck: Supple Chest: No tenderness CV: Regular rate. DP pulse detectable but not audiable with bedside doppler Lungs: CTA b/l Abd: Soft, NT Neuro: Alert Skin: R heel cold to touch and dark discoloration ED Course And Treatment O2 Sat by Pulse Oximetry: 96 Disposition Discussed With DrKrissy: Erasmo Mallory Jr. - Disposition Disposition: HOSPITALIZED Disposition Time: 00:22 Condition: GUARDED - Clinical Impression Clinical Impression: Ischemia of right lower extremity
[2018-02-07 00:12] LABS: INR 1.2; PROTHROMBIN TIME 13.5 SECONDS (9.7-12.2)
[2018-02-07 00:15] LABS: ALT/SGPT 19 U/L (9-52); AST/SGOT 19 U/L (14-36); BLOOD UREA NITROGEN 31 mg/dL (7-17); CALCIUM 8.8 mg/dl (8.6-10.4); GFR AFRICAN-AMERICAN > 60; GFR NON-AFRICAN AMERICAN > 60
--- NOTE | 2018-02-07 01:31 | CP.PCM.HP ---
History of Present Illness - History of Present Illness History of Present Illness: Vascular Surgery: Dr. Mallory Pt is an 82F well known to the vascular service with PMHx significant for PVD, HTN, TIA x3, arthritis, osteoporosis & Raynaud's who presents to with complaints of cold R foot & pain in the RLE. Pt has had a R pop-PT bypass with cryovein in Oct 2017 & angio with thrombolysis of occluded bypass in November 2017. During that admission, pt's graft in the RLE was found to be exposed & she was following up with Dr. Mallory for wound care. Pt was scheduled for debridement on 02/08. However, her son states that her R foot has been warm to touch and when he noticed the change in the temp of the R foot he became concerned and brought her to the ER. Currently, pt is comfortable. She states she always has pain in her RLE but denies other complaints at this time. Admits to loss of appetite. Denies N/V, F/ C, chest pain or SOB. PMHx: as listed above PSHx: cholecystectomy, tubal ligation, R Pop-PT bypass graft, multiple angioplasties SocialHx: denies smoking/EtOH NKDA Present on Admission - Present on Admission Any Indicators Present on Admission: No Review of Systems - Review of Systems All systems: reviewed and no additional remarkable complaints except (as per HPI ) Past Patient History - Past Medical History & Family History Past Medical History?: Yes - Past Social History Smoking Status: Never Smoked - CARDIAC Hx Hypertension: Yes Hx Peripheral Edema: Yes - PULMONARY Hx Chronic Obstructive Pulmonary Disease (COPD): Yes (WORK RELATED ENVIRONMENT EXPOSURE) - NEUROLOGICAL Hx Transient Ischemic Attacks (TIA): Yes - HEENT Hx HEENT Problems: Yes Hx Cataracts: Yes (MARICARMEN.) - RENAL Hx Chronic Kidney Disease: No - ENDOCRINE/METABOLIC Hx Endocrine Disorders: No - HEMATOLOGICAL/ONCOLOGICAL Hx Blood Disorders: No - INTEGUMENTARY Hx Dermatological Problems: Yes (SURGICAL HARRY RIGHT LEG ) Other/Comment: HX: ULCER RIGHT LEG - MUSCULOSKELETAL/RHEUMATOLOGICAL Hx Arthritis: Yes Hx Fractures: Yes Hx Osteoporosis: Yes - GASTROINTESTINAL Hx Gall Bladder Disease: Yes - GENITOURINARY/GYNECOLOGICAL Hx Genitourinary Disorders: No - PSYCHIATRIC Hx Substance Use: No - SURGICAL HISTORY Hx Cholecystectomy: Yes - ANESTHESIA Hx Anesthesia: Yes Hx Anesthesia Reactions: No Hx Malignant Hyperthermia: No Meds Allergies/Adverse Reactions: Allergies Allergy/AdvReac Type Severity Reaction Status Date / Time No Known Allergies Allergy Verified 02/06/18 22:49 Physical Exam - Constitutional Appears: Well, No Acute Distress - Head Exam Head Exam: ATRAUMATIC, NORMOCEPHALIC - Eye Exam Eye Exam: Normal appearance - ENT Exam ENT Exam: Mucous Membranes Moist - Respiratory Exam Respiratory Exam: NORMAL BREATHING PATTERN - Cardiovascular Exam Cardiovascular Exam: RRR - GI/Abdominal Exam GI & Abdominal Exam: Soft. absent: Tenderness - Extremities Exam Additional comments: RLE with necrotic wound no 2nd/3rd toes, medial leg with necrotic wound over bypass graft. no palpable DP/PT signals in the R foot - Skin Skin Exam: Dry, Warm Results - Vital Signs Recent Vital Signs: Last Vital Signs Temp 98 F 02/06/18 22:44 Pulse 86 02/07/18 00:58 Resp 14 02/07/18 00:58 BP 119/61 02/07/18 00:58 Pulse Ox 100 02/07/18 00:58 - Labs Result Diagrams: 02/07/18 07:46 02/07/18 07:46 Labs: Laboratory Results - last 24 hr 02/06/18 02/06/18 02/06/18 23:50 23:50 23:50 WBC 10.9 H RBC 3.49 L Hgb 10.4 L D Hct 31.9 L MCV 91.2 D MCH 29.7 MCHC 32.5 L RDW 17.4 H Plt Count 312 MPV 8.7 Neut % (Auto) 77.5 H Lymph % (Auto) 15.1 L [place] % (Auto) 5.9 Eos % (Auto) 1.0 Baso % (Auto) 0.5 Neut # (Auto) 8.4 H Lymph # (Auto) 1.6 [place] # (Auto) 0.6 Eos # (Auto) 0.1 Baso # (Auto) 0.1 PT 13.5 H INR 1.2 APTT 34 Sodium 139 Potassium 4.0 Chloride 100 Carbon Dioxide 32 H Anion Gap 11 BUN 31 H Creatinine 0.6 L Est GFR ( Amer) > 60 Est GFR (Non-Af Amer) > 60 Random Glucose 107 H Calcium 8.8 Total Bilirubin 0.4 AST 19 ALT 19 Alkaline Phosphatase 81 Total Protein 6.1 L Albumin 3.0 L Globulin 3.1 Albumin/Globulin Ratio 1.0 Blood Type Antibody Screen 02/06/18 23:50 WBC RBC Hgb Hct MCV MCH MCHC RDW Plt Count MPV Neut % (Auto) Lymph % (Auto) [place] % (Auto) Eos % (Auto) Baso % (Auto) Neut # (Auto) Lymph # (Auto) [place] # (Auto) Eos # (Auto) Baso # (Auto) PT INR APTT Sodium Potassium Chloride Carbon Dioxide Anion Gap BUN Creatinine Est GFR ( Amer) Est GFR (Non-Af Amer) Random Glucose Calcium Total Bilirubin AST ALT Alkaline Phosphatase Total Protein Albumin Globulin Albumin/Globulin Ratio Blood Type O POSITIVE Antibody Screen Positive Assessment & Plan - Assessment and Plan (Free Text) Assessment: 82F with PVD & likely occluded RLE bypass graft Plan: - will discuss possible repeat CT angio with Dr. Mallory - pt may need a definitive operation such as an amputation due to her non- healing wounds & severe PVD - will discuss this with pt, her son & Dr. Mallory - cont IV ABX Sharita, PGY-3
[2018-02-07] MEDS: oxyCODONE 10 mg ER Tab (oxyCONTIN) PO SCH ×3 (02:15→21:53)
[2018-02-07] MEDS: cefOXitin IV 1 gm in Dextrose 1 GM/50 ML BAG IVPB SCH ×3 (02:30→16:00)
[2018-02-07] MEDS: Vancomycin 1 gm/NS 200 ml 1 GM/200 ML BAG IVPB SCH (02:50)
[2018-02-07] MEDS: Albuterol-Ipratrop 3 mg / 0.5 (3 ml) UD INH SCH ×4 (06:34→19:55)
[2018-02-07 08:08] LABS: BASO % 0.4 % (0.0-2.0); EOS # 0.1 K/uL (0.0-0.7); EOS % 1.5 % (0.0-4.0); HEMOGLOBIN 9.9 g/dL (11.0-16.0); LYMPH # 2.2 K/uL (1.0-4.3); LYMPH % 23.9 % (20.0-40.0); MEAN CELL VOLUME 91.6 fL (81.0-99.0); MEAN CORPUSCULAR HEMOGLOBIN 30.4 pg (27.0-31.0); MEAN CORPUSCULAR HGB CONC 33.3 g/dL (33.0-37.0); MONO # 0.7 K/uL (0.0-0.8); MONO % 7.2 % (0.0-10.0); NEUT # 6.3 K/uL (1.8-7.0); RBC 3.24 Mil/uL (3.80-5.20); RED CELL DISTRIBUTION WIDTH 17.6 % (11.5-14.5); WHITE BLOOD COUNT 9.3 K/uL (4.8-10.8)
[2018-02-07 08:14] LABS: BLOOD UREA NITROGEN 27 mg/dL (7-17); CALCIUM 8.8 mg/dl (8.6-10.4); GFR AFRICAN-AMERICAN > 60; GFR NON-AFRICAN AMERICAN > 60
[2018-02-07] MEDS: Saccharomyces Boulardi 250 mg Cap PO SCH ×2 (11:17→18:04)
[2018-02-07] MEDS: Omega-3-Acid Ethyl Esters 1 GM Cap PO SCH (11:18)
[2018-02-07] MEDS: Multiple Vitamins Tab PO SCH (11:19)
[2018-02-07] MEDS ORDERED: oxyCODONE 10 mg ER Tab (oxyCONTIN) PO PRN (11:38)
[2018-02-07] MEDS: Albuterol HFA 90 mcg/actuation (8 g) IH SCH ×2 (11:47→19:55)
[2018-02-07] MEDS: Fluticasone-Salmeterol 500-50mcg Diskus INH SCH ×2 (11:49→19:55)
[2018-02-07] MEDS: Tramadol 25 mg PO SCH ×2 (14:25→18:04)
--- NOTE | 2018-02-07 18:18 | CP.PCM.PN ---
Subjective - Date & Time of Evaluation Date of Evaluation: 02/07/18 Time of Evaluation: 18:15 - Subjective Subjective: Spoke with patient's sons Elie and Andre at bedside. Both agree for right sided below knee amputation and also requested to change patient's code status to DNR/ DNI. Both agree that patient may be intubated for the operation (below knee amputation) tommorow 02/08/18. Discussed with Dr. Mohamud Vasquez, PGY2 Objective - Vital Signs/Intake and Output Vital Signs (last 24 hours): Temp Pulse Resp BP Pulse Ox 98.2 F 94 H 20 112/64 96 02/07/18 16:00 02/07/18 16:00 02/07/18 16:00 02/07/18 16:00 02/07/18 07:49 Intake and Output: 02/07/18 02/07/18 06:59 18:59 Intake Total 310 290 Balance 310 290 - Medications Medications: Current Medications Albuterol (Ventolin Hfa 90 Mcg/Actuation (8 G)) 2 puff IH BID [facility] [place] Last Admin: 02/07/18 11:47 Dose: Not Given Albuterol/Ipratropium (Duoneb 3 Mg/0.5 Mg (3 Ml) Ud) 3 ml INH RQ6 [facility] [place] Last Admin: 02/07/18 13:07 Dose: Not Given Ascorbic Acid (Vitamin C 500 Mg Tab) 1,000 mg PO DAILY [facility] Last Admin: 02/07/18 11:51 Dose: 1,000 mg Aspirin (Ecotrin) 81 mg PO DAILY [facility] Last Admin: 02/07/18 11:18 Dose: 81 mg Docusate Sodium (Colace) 100 mg PO TID [facility] Last Admin: 02/07/18 18:03 Dose: Not Given Enalapril Maleate (Vasotec) 20 mg PO DAILY [facility] Last Admin: 02/07/18 11:18 Dose: 20 mg Heparin Sodium (Porcine) (Heparin) 5,000 units SC Q8 [facility] [place] Last Admin: 02/07/18 14:25 Dose: 5,000 units Cefoxitin Sodium (Mefoxin Iv 1 Gm Duplex) 1 gm in 50 mls @ 50 mls/hr IVPB Q8H [facility] PRN Reason: Protocol Last Admin: 02/07/18 16:00 Dose: 50 mls/hr Vancomycin/Sodium Chloride (Vancomycin 1 Gm/Ns 200 Ml) 1 gm in 200 mls @ 166.7 mls/hr IVPB Q24H [facility] [place] PRN Reason: Protocol Stop: 02/12/18 02:01 Last Admin: 02/07/18 02:50 Dose: 166.7 mls/hr Multivitamins (Hexavitamin) 1 tab PO DAILY [facility] Last Admin: 02/07/18 11:19 Dose: 1 tab Niacin (Niacin) 250 mg PO HS [facility] [place] Ienbm-3-Eppg Ethyl Esters (Lovaza) 1 gm PO DAILY [facility] Last Admin: 02/07/18 11:18 Dose: 1 gm Oxycodone HCl (Oxycontin Extended Release Tab) 30 mg PO Q12 [facility] [place] Stop: 02/10/18 22:01 Pregabalin (Lyrica) 75 mg PO DAILY [facility] Last Admin: 02/07/18 11:18 Dose: 75 mg Saccharomyces Boulardii (Florastor) 250 mg PO BID [facility] Last Admin: 02/07/18 18:04 Dose: 250 mg Fluticasone/Salmeterol (Advair Diskus 500/50) 1 puff INH RQ12 [facility] Last Admin: 02/07/18 11:49 Dose: 1 puff Tramadol HCl (Ultram) 25 mg PO TID [facility] Last Admin: 02/07/18 18:04 Dose: 25 mg Zinc Sulfate (Zinc Sulfate 220 Mg Cap) 220 mg PO DAILY [facility] Last Admin: 02/07/18 11:19 Dose: 220 mg - Labs Labs: 02/07/18 07:46 02/07/18 07:46 PT 13.5 SECONDS (9.7-12.2) H 02/06/18 23:50 INR 1.2 02/06/18 23:50 APTT 34 SECONDS (21-34) 02/06/18 23:50
--- NOTE | 2018-02-07 21:07 | CP.PCM.CON ---
History of Present Illness - History of Present Illness History of Present Illness: Reason For Consultation: Pre Op Cardiac Risk assessment Pt is an 82F known to me with PMHx significant for PVD, HTN, TIA x3, arthritis, osteoporosis & Raynaud's who presents to with complaints of cold R foot & pain in the RLE. Pt has had a R pop-PT bypass with cryovein in Oct 2017 & angio with thrombolysis of occluded bypass in November 2017. During that admission, pt's graft in the RLE was found to be exposed & she was following up with Dr. Mallory for wound care. Pt was scheduled for debridement on 02/08. However, her son states that her R foot has been warm to touch and when he noticed the change in the temp of the R foot he became concerned and brought her to the ER. Currently, pt is comfortable. She states she always has pain in her RLE but denies other complaints at this time. Admits to loss of appetite. Denies N/V, F/ C, chest pain or SOB. PMHx: as listed above PSHx: cholecystectomy, tubal ligation, R Pop-PT bypass graft, multiple angioplasties SocialHx: denies smoking/EtOH NKDA Review of Systems - Review of Systems All systems: reviewed and no additional remarkable complaints except (as per HPI ) Physical Exam - Constitutional Appears: Well, No Acute Distress - Head Exam Head Exam: ATRAUMATIC, NORMOCEPHALIC - Eye Exam Eye Exam: Normal appearance - ENT Exam ENT Exam: Mucous Membranes Moist - Respiratory Exam Respiratory Exam: NORMAL BREATHING PATTERN - Cardiovascular Exam Cardiovascular Exam: RRR - GI/Abdominal Exam GI & Abdominal Exam: Soft. absent: Tenderness - Extremities Exam Additional comments: RLE with necrotic wound no 2nd/3rd toes, medial leg with necrotic wound over bypass graft. no palpable DP/PT signals in the R foot - Skin Skin Exam: Dry, Warm Past Patient History - Past Medical History & Family History Past Medical History?: Yes - Past Social History Smoking Status: Never Smoked - CARDIAC Hx Hypertension: Yes Hx Peripheral Edema: Yes - PULMONARY Hx Chronic Obstructive Pulmonary Disease (COPD): Yes (WORK RELATED ENVIRONMENT EXPOSURE) - NEUROLOGICAL Hx Transient Ischemic Attacks (TIA): Yes - HEENT Hx HEENT Problems: Yes Hx Cataracts: Yes (MARICARMEN.) - RENAL Hx Chronic Kidney Disease: No - ENDOCRINE/METABOLIC Hx Endocrine Disorders: No - HEMATOLOGICAL/ONCOLOGICAL Hx Blood Disorders: No - INTEGUMENTARY Hx Dermatological Problems: Yes (SURGICAL HARRY RIGHT LEG ) Other/Comment: HX: ULCER RIGHT LEG - MUSCULOSKELETAL/RHEUMATOLOGICAL Hx Arthritis: Yes Hx Fractures: Yes Hx Osteoporosis: Yes - GASTROINTESTINAL Hx Gall Bladder Disease: Yes - GENITOURINARY/GYNECOLOGICAL Hx Genitourinary Disorders: No - PSYCHIATRIC Hx Substance Use: No - SURGICAL HISTORY Hx Cholecystectomy: Yes - ANESTHESIA Hx Anesthesia: Yes Hx Anesthesia Reactions: No Hx Malignant Hyperthermia: No Meds Allergies/Adverse Reactions: Allergies Allergy/AdvReac Type Severity Reaction Status Date / Time No Known Allergies Allergy Verified 02/06/18 22:49 - Medications Medications: Current Medications Albuterol (Ventolin Hfa 90 Mcg/Actuation (8 G)) 2 puff IH BID [facility] Last Admin: 02/07/18 19:55 Dose: Not Given Albuterol/Ipratropium (Duoneb 3 Mg/0.5 Mg (3 Ml) Ud) 3 ml INH RQ6 [facility] Last Admin: 02/07/18 19:55 Dose: Not Given Ascorbic Acid (Vitamin C 500 Mg Tab) 1,000 mg PO DAILY [facility] Last Admin: 02/07/18 11:51 Dose: 1,000 mg Aspirin (Ecotrin) 81 mg PO DAILY [facility] Last Admin: 02/07/18 11:18 Dose: 81 mg Docusate Sodium (Colace) 100 mg PO TID [facility] Last Admin: 02/07/18 18:03 Dose: Not Given Enalapril Maleate (Vasotec) 20 mg PO DAILY [facility] Last Admin: 02/07/18 11:18 Dose: 20 mg Heparin Sodium (Porcine) (Heparin) 5,000 units SC Q8 [facility] Last Admin: 02/07/18 14:25 Dose: 5,000 units Cefoxitin Sodium (Mefoxin Iv 1 Gm Duplex) 1 gm in 50 mls @ 50 mls/hr IVPB Q8H [facility] PRN Reason: Protocol Last Admin: 02/07/18 16:00 Dose: 50 mls/hr Vancomycin/Sodium Chloride (Vancomycin 1 Gm/Ns 200 Ml) 1 gm in 200 mls @ 166.7 mls/hr IVPB Q24H [facility] PRN Reason: Protocol Stop: 02/12/18 02:01 Last Admin: 02/07/18 02:50 Dose: 166.7 mls/hr Multivitamins (Hexavitamin) 1 tab PO DAILY [facility] Last Admin: 02/07/18 11:19 Dose: 1 tab Niacin (Niacin) 250 mg PO HS [facility] Ohgap-5-Rmdq Ethyl Esters (Lovaza) 1 gm PO DAILY [facility] Last Admin: 02/07/18 11:18 Dose: 1 gm Oxycodone HCl (Oxycontin Extended Release Tab) 30 mg PO Q12 [facility] Stop: 02/10/18 22:01 Pregabalin (Lyrica) 75 mg PO DAILY [facility] Last Admin: 02/07/18 11:18 Dose: 75 mg Saccharomyces Boulardii (Florastor) 250 mg PO BID [facility] Last Admin: 02/07/18 18:04 Dose: 250 mg Fluticasone/Salmeterol (Advair Diskus 500/50) 1 puff INH RQ12 [facility] Last Admin: 02/07/18 19:55 Dose: Not Given Tramadol HCl (Ultram) 25 mg PO TID [facility] Last Admin: 02/07/18 18:04 Dose: 25 mg Zinc Sulfate (Zinc Sulfate 220 Mg Cap) 220 mg PO DAILY [facility] Last Admin: 02/07/18 11:19 Dose: 220 mg Results - Vital Signs Recent Vital Signs: Last Vital Signs Temp 98.2 F 02/07/18 16:00 Pulse 94 H 02/07/18 16:00 Resp 20 02/07/18 16:00 BP 112/64 02/07/18 16:00 Pulse Ox 96 02/07/18 07:49 - Labs Result Diagrams: 02/07/18 07:46 02/07/18 07:46 Labs: Laboratory Results - last 24 hr 02/06/18 02/06/18 02/06/18 23:50 23:50 23:50 WBC 10.9 H RBC 3.49 L Hgb 10.4 L D Hct 31.9 L MCV 91.2 D MCH 29.7 MCHC 32.5 L RDW 17.4 H Plt Count 312 MPV 8.7 Neut % (Auto) 77.5 H Lymph % (Auto) 15.1 L [place] % (Auto) 5.9 Eos % (Auto) 1.0 Baso % (Auto) 0.5 Neut # (Auto) 8.4 H Lymph # (Auto) 1.6 [place] # (Auto) 0.6 Eos # (Auto) 0.1 Baso # (Auto) 0.1 PT 13.5 H INR 1.2 APTT 34 Sodium 139 Potassium 4.0 Chloride 100 Carbon Dioxide 32 H Anion Gap 11 BUN 31 H Creatinine 0.6 L Est GFR ( Amer) > 60 Est GFR (Non-Af Amer) > 60 Random Glucose 107 H Calcium 8.8 Total Bilirubin 0.4 AST 19 ALT 19 Alkaline Phosphatase 81 Total Protein 6.1 L Albumin 3.0 L Globulin 3.1 Albumin/Globulin Ratio 1.0 Blood Type Antibody Screen Antibody Identification MALISSA, Poly Interpret 02/06/18 02/07/18 02/07/18 23:50 07:46 07:46 WBC 9.3 RBC 3.24 L Hgb 9.9 L Hct 29.7 L MCV 91.6 MCH 30.4 MCHC 33.3 RDW 17.6 H Plt Count 287 MPV 9.0 Neut % (Auto) 67.0 Lymph % (Auto) 23.9 [place] % (Auto) 7.2 Eos % (Auto) 1.5 Baso % (Auto) 0.4 Neut # (Auto) 6.3 Lymph # (Auto) 2.2 [place] # (Auto) 0.7 Eos # (Auto) 0.1 Baso # (Auto) 0.0 PT INR APTT Sodium 141 Potassium 3.6 Chloride 102 Carbon Dioxide 31 H Anion Gap 11 BUN 27 H Creatinine 0.5 L Est GFR ( Amer) > 60 Est GFR (Non-Af Amer) > 60 Random Glucose 90 Calcium 8.8 Total Bilirubin AST ALT Alkaline Phosphatase Total Protein Albumin Globulin Albumin/Globulin Ratio Blood Type O POSITIVE Antibody Screen Positive Antibody Identification Anti Jka MALISSA, Poly Interpret Negative Assessment & Plan - Assessment and Plan (Free Text) Assessment: CAD Patient is S/P fem/pop bypass surgery HTN Stress test negative for Ischemia 10/18 ECHO: Normal EF. Mild to moderate valvular regurgitations 10/18 No cardiac symptoms as per the patient and her Son (Limited ambulation) There is no high cardiac risk feature noted. Likely Cardiac risk is moderate to high for amputation If benefit outweighs the risk please proceed with the surgery
[2018-02-08] MEDS: cefOXitin IV 1 gm in Dextrose 1 GM/50 ML BAG IVPB SCH ×3 (00:41→17:11)
[2018-02-08] MEDS: Vancomycin 1 gm/NS 200 ml 1 GM/200 ML BAG IVPB SCH (01:45)
[2018-02-08] MEDS: Albuterol-Ipratrop 3 mg / 0.5 (3 ml) UD INH SCH ×4 (02:55→19:27)
[2018-02-08] MEDS ORDERED: HYDROmorphone 0.5 mg/0.5 ml ISec IVP ONE (03:31)
[2018-02-08] MEDS ORDERED: Midazolam 2 MG/2 ML VIAL ONE (07:24)
[2018-02-08] MEDS ORDERED: Propofol 10 mg/ml Inj (20 ML) ONE (07:24)
[2018-02-08] MEDS: Fluticasone-Salmeterol 500-50mcg Diskus INH SCH ×2 (07:42→19:27)
[2018-02-08] MEDS: Albuterol HFA 90 mcg/actuation (8 g) IH SCH (07:59)
[2018-02-08] MEDS ORDERED: Lactated Ringer's 1,000 ML IV ONE ×2 (09:45→10:58)
[2018-02-08] MEDS: Omega-3-Acid Ethyl Esters 1 GM Cap PO SCH (10:16)
[2018-02-08] MEDS: Multiple Vitamins Tab PO SCH (10:16)
[2018-02-08] MEDS: oxyCODONE 10 mg ER Tab (oxyCONTIN) PO SCH ×2 (10:16→21:36)
[2018-02-08] MEDS: Saccharomyces Boulardi 250 mg Cap PO SCH ×2 (10:16→17:09)
[2018-02-08] MEDS: Tramadol 25 mg PO SCH ×3 (10:17→17:09)
--- NOTE | 2018-02-08 11:02 | PCM.SURG1 ---
Surgeon's Initial Post Op Note - Surgeon's Notes Surgeon: Dr. Mallory Protozoology Teacher: Satnam Cummings PGY1, Diana MYLESM PGY1 Type of Anesthesia: General LMA Anesthesia Administered By: Dr. Sterling Pre-Operative Diagnosis: RLE non-healing wounds & severe PVD Operative Findings: See operative report Post-Operative Diagnosis: Same Operation Performed: Right below knee amputation Specimen/Specimens Removed: R leg Estimated Blood Loss: EBL {In ML}: 200 Blood Products Given: N/A Drains Used: No Drains Post-Op Condition: Good Date of Surgery/Procedure: 02/08/18 Time of Surgery/Procedure: 11:03
[2018-02-08] MEDS ORDERED: HYDROmorphone 0.5 mg/0.5 ml ISec IVP PRN ×2 (11:12→11:30)
[2018-02-08] MEDS ORDERED: Lactated Ringer's 1,000 ML IV SCH (11:15)
[2018-02-08] MEDS ORDERED: HYDROmorphone 0.5 mg/0.5 ml ISec IVP STA (11:30)
[2018-02-08] MEDS: HYDROmorphone 0.5 mg/0.5 ml ISec IVP PRN ×3 (11:51→12:20)
[2018-02-08] MEDS ORDERED: HYDROmorphone 0.5 mg/0.5 ml ISec ONE (12:11)
[2018-02-09] MEDS: cefOXitin IV 1 gm in Dextrose 1 GM/50 ML BAG IVPB SCH ×3 (01:00→17:05)
[2018-02-09] MEDS: Albuterol-Ipratrop 3 mg / 0.5 (3 ml) UD INH SCH ×4 (01:04→20:19)
[2018-02-09] MEDS: Vancomycin 1 gm/NS 200 ml 1 GM/200 ML BAG IVPB SCH (02:02)
[2018-02-09] MEDS: HYDROmorphone 0.5 mg/0.5 ml ISec IVP PRN ×2 (06:47→18:17)
[2018-02-09 07:00] LABS: BASO % 0.3 % (0.0-2.0); EOS # 0.1 K/uL (0.0-0.7); EOS % 0.6 % (0.0-4.0); HEMOGLOBIN 9.4 g/dL (11.0-16.0); LYMPH # 1.9 K/uL (1.0-4.3); LYMPH % 17.9 % (20.0-40.0); MEAN CELL VOLUME 91.6 fL (81.0-99.0); MEAN CORPUSCULAR HEMOGLOBIN 30.6 pg (27.0-31.0); MEAN CORPUSCULAR HGB CONC 33.4 g/dL (33.0-37.0); MEAN PLATELET VOLUME 8.6 fL (7.2-11.7); MONO # 0.8 K/uL (0.0-0.8); MONO % 7.1 % (0.0-10.0); NEUT % 74.1 % (50.0-75.0); RBC 3.08 Mil/uL (3.80-5.20); RED CELL DISTRIBUTION WIDTH 17.3 % (11.5-14.5); WHITE BLOOD COUNT 10.8 K/uL (4.8-10.8)
[2018-02-09 07:36] LABS: ALB/GLOB RATIO 1.1 (1.0-2.1); ALBUMIN 2.9 g/dL (3.5-5.0); ALT/SGPT 24 U/L (9-52); AST/SGOT 47 U/L (14-36); BLOOD UREA NITROGEN 9 mg/dL (7-17); CALCIUM 8.1 mg/dl (8.6-10.4); GFR AFRICAN-AMERICAN > 60; GFR NON-AFRICAN AMERICAN > 60
[2018-02-09] MEDS ORDERED: HYDROmorphone 0.5 mg/0.5 ml ISec IVP ONE (08:30)
[2018-02-09] MEDS ORDERED: HYDROmorphone 1 mg/ml ISec IVP ONE (08:30)
[2018-02-09] MEDS: Fluticasone-Salmeterol 500-50mcg Diskus INH SCH ×2 (08:31→20:19)
--- NOTE | 2018-02-09 09:38 | CP.PCM.PN ---
Subjective - Date & Time of Evaluation Date of Evaluation: 02/09/18 Time of Evaluation: 06:00 - Subjective Subjective: Vascular Surgery Progress Note for Dr. Mallory This 82F was seen and evaluated this Am at bedside. Yesterday pain control was an issue so her pain medication regiment was modified. This AM she reports that her pain is better controlled. She denies any chest pain or SOB. Dressing remains dry. Knee immobilizer in place Objective - Vital Signs/Intake and Output Vital Signs (last 24 hours): Temp Pulse Resp BP Pulse Ox 98 F 86 20 134/64 97 02/09/18 07:43 02/09/18 07:43 02/09/18 07:43 02/09/18 07:43 02/09/18 07:43 Intake and Output: 02/09/18 02/09/18 06:59 18:59 Intake Total 570 Balance 570 - Medications Medications: Current Medications Albuterol (Ventolin Hfa 90 Mcg/Actuation (8 G)) 2 puff IH BID [facility] Last Admin: 02/08/18 07:59 Dose: Not Given Albuterol/Ipratropium (Duoneb 3 Mg/0.5 Mg (3 Ml) Ud) 3 ml INH RQ6 [facility] Last Admin: 02/09/18 08:32 Dose: 3 ml Ascorbic Acid (Vitamin C 500 Mg Tab) 1,000 mg PO DAILY [facility] Last Admin: 02/08/18 10:17 Dose: Not Given Aspirin (Ecotrin) 81 mg PO DAILY [facility] Last Admin: 02/08/18 10:16 Dose: Not Given Docusate Sodium (Colace) 100 mg PO TID [facility] Last Admin: 02/08/18 17:09 Dose: 100 mg Enalapril Maleate (Vasotec) 20 mg PO DAILY [facility] Last Admin: 02/08/18 10:17 Dose: Not Given Heparin Sodium (Porcine) (Heparin) 5,000 units SC Q8 [facility] Last Admin: 02/09/18 06:01 Dose: 5,000 units Hydromorphone HCl (Dilaudid) 1 mg IVP Q4H PRN PRN Reason: Pain, severe (8-10) Last Admin: 02/09/18 06:47 Dose: 1 mg Cefoxitin Sodium (Mefoxin Iv 1 Gm Duplex) 1 gm in 50 mls @ 50 mls/hr IVPB Q8H [facility] PRN Reason: Protocol Last Admin: 02/09/18 01:00 Dose: 50 mls/hr Vancomycin/Sodium Chloride (Vancomycin 1 Gm/Ns 200 Ml) 1 gm in 200 mls @ 166.7 mls/hr IVPB Q24H [facility] PRN Reason: Protocol Stop: 02/12/18 02:01 Last Admin: 02/09/18 02:02 Dose: 166.7 mls/hr Potassium Chloride (Potassium Chloride 20 Meq/100 Ml) 20 meq in 100 mls @ 50 mls/hr IVPB Q2 [facility] Stop: 02/09/18 13:59 Multivitamins (Hexavitamin) 1 tab PO DAILY [facility] Last Admin: 02/08/18 10:16 Dose: Not Given Niacin (Niacin) 250 mg PO HS [facility] Last Admin: 02/08/18 21:35 Dose: 250 mg Vkwip-6-Efrh Ethyl Esters (Lovaza) 1 gm PO DAILY [facility] Last Admin: 02/08/18 10:16 Dose: Not Given Oxycodone HCl (Oxycontin Extended Release Tab) 30 mg PO Q12 [facility] Stop: 02/10/18 22:01 Last Admin: 02/08/18 21:36 Dose: 30 mg Pregabalin (Lyrica) 75 mg PO DAILY [facility] Last Admin: 02/08/18 14:12 Dose: 75 mg Saccharomyces Boulardii (Florastor) 250 mg PO BID [facility] Last Admin: 02/08/18 17:09 Dose: 250 mg Fluticasone/Salmeterol (Advair Diskus 500/50) 1 puff INH RQ12 [facility] Last Admin: 02/09/18 08:31 Dose: 1 puff Tramadol HCl (Ultram) 25 mg PO TID [facility] Last Admin: 02/08/18 17:09 Dose: 25 mg Zinc Sulfate (Zinc Sulfate 220 Mg Cap) 220 mg PO DAILY [facility] Last Admin: 02/08/18 10:17 Dose: Not Given - Labs Labs: 02/09/18 06:53 02/09/18 06:53 PT 13.5 SECONDS (9.7-12.2) H 02/06/18 23:50 INR 1.2 02/06/18 23:50 APTT 34 SECONDS (21-34) 02/06/18 23:50 - Constitutional Appears: Non-toxic, No Acute Distress - Head Exam Head Exam: ATRAUMATIC, NORMOCEPHALIC - Eye Exam Eye Exam: EOMI, Normal appearance - ENT Exam ENT Exam: Mucous Membranes Moist - Respiratory Exam Respiratory Exam: NORMAL BREATHING PATTERN - Cardiovascular Exam Cardiovascular Exam: +S1, +S2 - GI/Abdominal Exam GI & Abdominal Exam: Soft. absent: Firm, Guarding, Rigid, Tenderness - Extremities Exam Additional comments: knee imobilizer in place dressing clean dry and intact - Neurological Exam Neurological Exam: Alert, Awake - Psychiatric Exam Psychiatric exam: Normal Affect, Normal Mood - Skin Skin Exam: Dry, Intact Assessment and Plan - Assessment and Plan (Free Text) Assessment: 82F POD#1 s/p BKA Pain control regular diet knee imobilizer trapeeze physical therapy D/W Dr. Mohamud Trujillo PGY2
[2018-02-09] MEDS: Omega-3-Acid Ethyl Esters 1 GM Cap PO SCH (10:09)
[2018-02-09] MEDS: Multiple Vitamins Tab PO SCH (10:09)
[2018-02-09] MEDS: oxyCODONE 10 mg ER Tab (oxyCONTIN) PO SCH ×2 (10:09→21:10)
[2018-02-09] MEDS: Tramadol 25 mg PO SCH ×3 (10:15→17:04)
[2018-02-09] MEDS: Saccharomyces Boulardi 250 mg Cap PO SCH ×2 (12:28→17:05)
[2018-02-09] MEDS: Albuterol HFA 90 mcg/actuation (8 g) IH SCH (13:23)
--- NOTE | 2018-02-09 18:25 | CP.PCM.PN ---
Subjective - Date & Time of Evaluation Date of Evaluation: 02/09/18 Time of Evaluation: 15:10 - Subjective Subjective: Patient s/p BKA POD # 1 No cardiac events noted Physical Exam - Constitutional Appears: Well, No Acute Distress - Head Exam Head Exam: ATRAUMATIC, NORMOCEPHALIC - Eye Exam Eye Exam: Normal appearance - ENT Exam ENT Exam: Mucous Membranes Moist - Respiratory Exam Respiratory Exam: NORMAL BREATHING PATTERN - Cardiovascular Exam Cardiovascular Exam: RRR - GI/Abdominal Exam GI & Abdominal Exam: Soft. absent: Tenderness - Extremities Exam Additional comments: s/p BKA Objective - Vital Signs/Intake and Output Vital Signs (last 24 hours): Temp Pulse Resp BP Pulse Ox 98.4 F 97 H 20 101/57 L 100 02/09/18 16:00 02/09/18 16:00 02/09/18 16:00 02/09/18 16:00 02/09/18 16:00 Intake and Output: 02/09/18 02/09/18 06:59 18:59 Intake Total 570 Balance 570 - Medications Medications: Current Medications Albuterol (Ventolin Hfa 90 Mcg/Actuation (8 G)) 2 puff IH BID [facility] Last Admin: 02/08/18 07:59 Dose: Not Given Albuterol/Ipratropium (Duoneb 3 Mg/0.5 Mg (3 Ml) Ud) 3 ml INH RQ6 [facility] Last Admin: 02/09/18 13:18 Dose: 3 ml Ascorbic Acid (Vitamin C 500 Mg Tab) 1,000 mg PO DAILY [facility] Last Admin: 02/09/18 10:15 Dose: 1,000 mg Aspirin (Ecotrin) 81 mg PO DAILY [facility] Last Admin: 02/09/18 10:08 Dose: 81 mg Docusate Sodium (Colace) 100 mg PO TID [facility] Last Admin: 02/09/18 17:05 Dose: 100 mg Enalapril Maleate (Vasotec) 20 mg PO DAILY [facility] Last Admin: 02/09/18 10:10 Dose: 20 mg Heparin Sodium (Porcine) (Heparin) 5,000 units SC Q8 [facility] Last Admin: 02/09/18 13:42 Dose: 5,000 units Hydromorphone HCl (Dilaudid) 1 mg IVP Q4H PRN PRN Reason: Pain, severe (8-10) Last Admin: 02/09/18 18:17 Dose: 1 mg Cefoxitin Sodium (Mefoxin Iv 1 Gm Duplex) 1 gm in 50 mls @ 50 mls/hr IVPB Q8H [facility] PRN Reason: Protocol Last Admin: 02/09/18 17:05 Dose: 50 mls/hr Vancomycin/Sodium Chloride (Vancomycin 1 Gm/Ns 200 Ml) 1 gm in 200 mls @ 166.7 mls/hr IVPB Q24H [facility] PRN Reason: Protocol Stop: 02/12/18 02:01 Last Admin: 02/09/18 02:02 Dose: 166.7 mls/hr Multivitamins (Hexavitamin) 1 tab PO DAILY [facility] Last Admin: 02/09/18 10:09 Dose: 1 tab Niacin (Niacin) 250 mg PO HS [facility] Last Admin: 02/08/18 21:35 Dose: 250 mg Fassl-5-Aysb Ethyl Esters (Lovaza) 1 gm PO DAILY [facility] Last Admin: 02/09/18 10:09 Dose: 1 gm Oxycodone HCl (Oxycontin Extended Release Tab) 30 mg PO Q12 [facility] Stop: 02/10/18 22:01 Last Admin: 02/09/18 10:09 Dose: 30 mg Pregabalin (Lyrica) 75 mg PO DAILY [facility] Last Admin: 02/09/18 10:11 Dose: 75 mg Saccharomyces Boulardii (Florastor) 250 mg PO BID [facility] Last Admin: 02/09/18 17:05 Dose: 250 mg Fluticasone/Salmeterol (Advair Diskus 500/50) 1 puff INH RQ12 [facility] Last Admin: 02/09/18 08:31 Dose: 1 puff Tramadol HCl (Ultram) 25 mg PO TID [facility] Last Admin: 02/09/18 17:04 Dose: 25 mg Zinc Sulfate (Zinc Sulfate 220 Mg Cap) 220 mg PO DAILY [facility] Last Admin: 02/09/18 10:10 Dose: 220 mg - Labs Labs: 02/09/18 06:53 02/09/18 06:53 PT 13.5 SECONDS (9.7-12.2) H 02/06/18 23:50 INR 1.2 02/06/18 23:50 APTT 34 SECONDS (21-34) 02/06/18 23:50 Assessment and Plan - Assessment and Plan (Free Text) Assessment: CAD HTN S/P BKA Stable
[2018-02-10] MEDS: Albuterol-Ipratrop 3 mg / 0.5 (3 ml) UD INH SCH ×4 (01:14→19:26)
[2018-02-10] MEDS: cefOXitin IV 1 gm in Dextrose 1 GM/50 ML BAG IVPB SCH (01:47)
[2018-02-10] MEDS: Vancomycin 1 gm/NS 200 ml 1 GM/200 ML BAG IVPB SCH (02:50)
[2018-02-10 06:12] LABS: BASO # 0.1 K/uL (0.0-0.2); BASO % 0.6 % (0.0-2.0); EOS # 0.1 K/uL (0.0-0.7); LYMPH # 2.5 K/uL (1.0-4.3); LYMPH % 17.4 % (20.0-40.0); MEAN CELL VOLUME 91.3 fL (81.0-99.0); MEAN CORPUSCULAR HEMOGLOBIN 29.5 pg (27.0-31.0); MEAN CORPUSCULAR HGB CONC 32.3 g/dL (33.0-37.0); MEAN PLATELET VOLUME 8.8 fL (7.2-11.7); MONO # 0.8 K/uL (0.0-0.8); MONO % 5.5 % (0.0-10.0); NEUT # 10.8 K/uL (1.8-7.0); NEUT % 75.5 % (50.0-75.0); RBC 3.05 Mil/uL (3.80-5.20); RED CELL DISTRIBUTION WIDTH 17.2 % (11.5-14.5); WHITE BLOOD COUNT 14.3 K/uL (4.8-10.8)
[2018-02-10] MEDS: HYDROmorphone 0.5 mg/0.5 ml ISec IVP PRN ×2 (06:36→20:01)
--- NOTE | 2018-02-10 06:39 | OP ---
PROCEDURE DATE: 02/08/2018 PREOPERATIVE DIAGNOSIS: Gangrene of right foot. PROCEDURE: Right below-knee amputation. SURGEON: Erasmo Mallory Jr., MD TREATING AND PUMPING SUPERVISOR: Marco Cummings DO ANESTHESIOLOGIST: Saritha Cano MD FINDINGS: The patient is an elderly woman, previous endovascular, open; previous thrombolytic therapy; who presents with an occluded graft and gangrene of the foot as well as a wound on the medical aspect. The wound on the medial aspect was of a greatest concern, but underneath this there was muscular tissue, which was quite viable. Because of this, we proceeded with a below-knee amputation. DESCRIPTION OF PROCEDURE: The patient was given general anesthesia, intravenous antibiotics. Standard left below-knee amputation was carried out. It was clear that the tissue appeared viable. We made a standard incision on the posterior flap, divided the tibia and the fibula, we brought the bone back at a higher level and made sure it was smooth. We then approximated the edges. Blood loss was 200 mL to 300 mL. There were no other operative complications or problems. There was not pulsatile blood flow, but there was adequate blood flow to the muscles. The skin was closed with skin clips and nylon sutures and a knee immobilizer. Operation carried out is right below-knee amputation. Erasmo Mallory Jr., MD
[2018-02-10] MEDS: Fluticasone-Salmeterol 500-50mcg Diskus INH SCH ×2 (07:23→19:26)
[2018-02-10] MEDS: Omega-3-Acid Ethyl Esters 1 GM Cap PO SCH (09:23)
[2018-02-10] MEDS: Saccharomyces Boulardi 250 mg Cap PO SCH ×2 (09:23→18:00)
[2018-02-10] MEDS: Multiple Vitamins Tab PO SCH (09:23)
[2018-02-10] MEDS: oxyCODONE 10 mg ER Tab (oxyCONTIN) PO SCH ×2 (09:23→21:51)
[2018-02-10] MEDS: Tramadol 25 mg PO SCH ×3 (09:24→18:00)
[2018-02-10] MEDS ORDERED: Pneumococcal 23-Valent Vaccine IM ONE (10:00)
[2018-02-10] MEDS: Albuterol HFA 90 mcg/actuation (8 g) IH SCH (13:22)
[2018-02-10] MEDS ORDERED: cefOXitin IV 1 gm in Dextrose 1 GM/50 ML BAG IVPB SCH (13:30)
[2018-02-10] MEDS: cefOXitin 1 GM in Sodium Chloride 0.9% 100 ML IVPB SCH ×2 (13:51→21:50)
--- NOTE | 2018-02-10 15:32 | CP.PCM.PN ---
Subjective - Date & Time of Evaluation Date of Evaluation: 02/10/18 Time of Evaluation: 15:29 - Subjective Subjective: Vascular Surgery Progress Note for Dr. Mallory This 82F was seen and evaluated this Am at bedside. Complained of pain control overnight however at the moment the patinet is not complaining of pain. She reports that PT cam however they did not work with her because the trapeze was not attached to the bed at the time of my exam the trapeeze was in place. She has no new complaints at this time. Objective - Vital Signs/Intake and Output Vital Signs (last 24 hours): Temp Pulse Resp BP Pulse Ox 98.5 F 105 H 20 115/65 96 02/10/18 07:56 02/10/18 07:56 02/10/18 07:56 02/10/18 09:22 02/10/18 07:56 Intake and Output: 02/10/18 02/10/18 06:59 18:59 Intake Total 750 400 Balance 750 400 - Medications Medications: Current Medications Albuterol (Ventolin Hfa 90 Mcg/Actuation (8 G)) 2 puff IH BID [facility] Last Admin: 02/10/18 13:22 Dose: Not Given Albuterol/Ipratropium (Duoneb 3 Mg/0.5 Mg (3 Ml) Ud) 3 ml INH RQ6 [facility] Last Admin: 02/10/18 13:22 Dose: 3 ml Ascorbic Acid (Vitamin C 500 Mg Tab) 1,000 mg PO DAILY [facility] Last Admin: 02/10/18 09:22 Dose: 1,000 mg Aspirin (Ecotrin) 81 mg PO DAILY [facility] Last Admin: 02/10/18 09:23 Dose: 81 mg Docusate Sodium (Colace) 100 mg PO TID [facility] Last Admin: 02/10/18 13:30 Dose: 100 mg Enalapril Maleate (Vasotec) 20 mg PO DAILY [facility] Last Admin: 02/10/18 09:22 Dose: 20 mg Heparin Sodium (Porcine) (Heparin) 5,000 units SC Q8 [facility] Last Admin: 02/10/18 13:29 Dose: 5,000 units Hydromorphone HCl (Dilaudid) 1 mg IVP Q4H PRN PRN Reason: Pain, severe (8-10) Last Admin: 02/10/18 06:36 Dose: 1 mg Cefoxitin Sodium 1 gm/ Sodium (Chloride) 100 mls @ 200 mls/hr IVPB Q8H [facility] PRN Reason: Protocol Last Admin: 02/10/18 13:51 Dose: Not Given Multivitamins (Hexavitamin) 1 tab PO DAILY [facility] Last Admin: 02/10/18 09:23 Dose: 1 tab Niacin (Niacin) 250 mg PO HS [facility] Last Admin: 02/09/18 21:10 Dose: 250 mg Sjqxk-1-Kiwl Ethyl Esters (Lovaza) 1 gm PO DAILY [facility] Last Admin: 02/10/18 09:23 Dose: 1 gm Oxycodone HCl (Oxycontin Extended Release Tab) 30 mg PO Q12 [facility] Stop: 02/10/18 22:01 Last Admin: 02/10/18 09:23 Dose: 30 mg Pregabalin (Lyrica) 75 mg PO DAILY [facility] Last Admin: 02/10/18 09:23 Dose: 75 mg Saccharomyces Boulardii (Florastor) 250 mg PO BID [facility] Last Admin: 02/10/18 09:23 Dose: 250 mg Fluticasone/Salmeterol (Advair Diskus 500/50) 1 puff INH RQ12 [facility] Last Admin: 02/10/18 07:23 Dose: 1 puff Tramadol HCl (Ultram) 25 mg PO TID [facility] Last Admin: 02/10/18 13:34 Dose: 25 mg Zinc Sulfate (Zinc Sulfate 220 Mg Cap) 220 mg PO DAILY [facility] Last Admin: 02/10/18 09:23 Dose: 220 mg - Labs Labs: 02/10/18 06:07 02/09/18 06:53 PT 13.5 SECONDS (9.7-12.2) H 02/06/18 23:50 INR 1.2 02/06/18 23:50 APTT 34 SECONDS (21-34) 02/06/18 23:50 - Constitutional Appears: Non-toxic, No Acute Distress - Head Exam Head Exam: ATRAUMATIC, NORMOCEPHALIC - Eye Exam Eye Exam: EOMI, Normal appearance - ENT Exam ENT Exam: Mucous Membranes Moist - Respiratory Exam Respiratory Exam: NORMAL BREATHING PATTERN - Cardiovascular Exam Cardiovascular Exam: +S1, +S2 - GI/Abdominal Exam GI & Abdominal Exam: Soft. absent: Firm, Guarding, Rigid, Tenderness - Extremities Exam Additional comments: knee imobilizer in place dressing clean dry and intact - Neurological Exam Neurological Exam: Alert, Awake - Psychiatric Exam Psychiatric exam: Normal Affect, Normal Mood - Skin Skin Exam: Dry, Intact Assessment and Plan - Assessment and Plan (Free Text) Assessment: 82F POD#2 s/p BKA Pain control regular diet knee imobilizer trapeeze physical therapy D/W Dr. Mohamud Trujillo PGY2
--- NOTE | 2018-02-10 22:34 | CARD ---
APPROVED REPORT EKG Measurement Heart [id number] <Conclusion> Normal sinus rhythm Normal ECG
[2018-02-11] MEDS: Albuterol-Ipratrop 3 mg / 0.5 (3 ml) UD INH SCH ×4 (01:10→19:42)
[2018-02-11] MEDS: HYDROmorphone 0.5 mg/0.5 ml ISec IVP PRN ×4 (03:36→17:45)
[2018-02-11] MEDS: cefOXitin 1 GM in Sodium Chloride 0.9% 100 ML IVPB SCH ×3 (05:35→21:15)
[2018-02-11] MEDS: Saccharomyces Boulardi 250 mg Cap PO SCH ×2 (09:18→17:44)
[2018-02-11] MEDS: Multiple Vitamins Tab PO SCH (09:19)
[2018-02-11] MEDS: Tramadol 25 mg PO SCH ×3 (09:20→18:00)
[2018-02-11] MEDS: Omega-3-Acid Ethyl Esters 1 GM Cap PO SCH (09:40)
[2018-02-11] MEDS: Albuterol HFA 90 mcg/actuation (8 g) IH SCH (09:56)
[2018-02-11] MEDS: Fluticasone-Salmeterol 500-50mcg Diskus INH SCH ×2 (10:19→19:42)
--- NOTE | 2018-02-11 12:35 | CP.PCM.PN ---
Subjective - Date & Time of Evaluation Date of Evaluation: 02/11/18 Time of Evaluation: 07:00 - Subjective Subjective: Vascular Surgery Progress Note for Dr. Mallory This 82F was seen and examined this Am at bedside no acute events overnight. She was seen this AM working with physcial therapy at the time she was complaining of LE pain. She denies any chest pain or SOB. Objective - Vital Signs/Intake and Output Vital Signs (last 24 hours): Temp Pulse Resp BP Pulse Ox 98.2 F 98 H 20 104/60 95 02/11/18 07:39 02/11/18 07:39 02/11/18 07:39 02/11/18 09:18 02/11/18 07:39 Intake and Output: 02/11/18 02/11/18 06:59 18:59 Intake Total 255 Balance 255 - Medications Medications: Current Medications Albuterol (Ventolin Hfa 90 Mcg/Actuation (8 G)) 2 puff IH BID [facility] Last Admin: 02/11/18 09:56 Dose: Not Given Albuterol/Ipratropium (Duoneb 3 Mg/0.5 Mg (3 Ml) Ud) 3 ml INH RQ6 [facility] Last Admin: 02/11/18 07:17 Dose: 3 ml Ascorbic Acid (Vitamin C 500 Mg Tab) 1,000 mg PO DAILY [facility] Last Admin: 02/11/18 09:32 Dose: 1,000 mg Aspirin (Ecotrin) 81 mg PO DAILY [facility] Last Admin: 02/11/18 09:20 Dose: 81 mg Docusate Sodium (Colace) 100 mg PO TID [facility] Last Admin: 02/11/18 09:19 Dose: 100 mg Enalapril Maleate (Vasotec) 20 mg PO DAILY [facility] Last Admin: 02/11/18 09:18 Dose: 20 mg Hydromorphone HCl (Dilaudid) 1 mg IVP Q4H PRN PRN Reason: Pain, severe (8-10) Last Admin: 02/11/18 09:17 Dose: 1 mg Cefoxitin Sodium 1 gm/ Sodium (Chloride) 100 mls @ 200 mls/hr IVPB Q8H [facility] PRN Reason: Protocol Last Admin: 02/11/18 05:35 Dose: 200 mls/hr Multivitamins (Hexavitamin) 1 tab PO DAILY [facility] Last Admin: 02/11/18 09:19 Dose: 1 tab Niacin (Niacin) 250 mg PO HS [facility] Last Admin: 02/10/18 21:51 Dose: 250 mg Owbzv-1-Yhku Ethyl Esters (Lovaza) 1 gm PO DAILY [facility] Last Admin: 02/11/18 09:40 Dose: 1 gm Pregabalin (Lyrica) 75 mg PO DAILY [facility] Last Admin: 02/11/18 09:20 Dose: 75 mg Saccharomyces Boulardii (Florastor) 250 mg PO BID [facility] Last Admin: 02/11/18 09:18 Dose: 250 mg Fluticasone/Salmeterol (Advair Diskus 500/50) 1 puff INH RQ12 [facility] Last Admin: 02/11/18 10:19 Dose: 1 puff Tramadol HCl (Ultram) 25 mg PO TID [facility] Last Admin: 02/11/18 09:20 Dose: Not Given Zinc Sulfate (Zinc Sulfate 220 Mg Cap) 220 mg PO DAILY [facility] Last Admin: 02/11/18 09:19 Dose: 220 mg - Labs Labs: 02/10/18 06:07 02/09/18 06:53 PT 13.5 SECONDS (9.7-12.2) H 02/06/18 23:50 INR 1.2 02/06/18 23:50 APTT 34 SECONDS (21-34) 02/06/18 23:50 - Constitutional Appears: Non-toxic, No Acute Distress - Head Exam Head Exam: ATRAUMATIC, NORMOCEPHALIC - Eye Exam Eye Exam: EOMI, Normal appearance - ENT Exam ENT Exam: Mucous Membranes Moist - Respiratory Exam Respiratory Exam: NORMAL BREATHING PATTERN - Cardiovascular Exam Cardiovascular Exam: +S1, +S2 - GI/Abdominal Exam GI & Abdominal Exam: Soft. absent: Distended, Firm, Guarding, Rigid, Tenderness - Extremities Exam Additional comments: RLE knee immobilizer in place, stocking clean - Neurological Exam Neurological Exam: Alert, Awake - Psychiatric Exam Psychiatric exam: Normal Affect, Normal Mood Assessment and Plan - Assessment and Plan (Free Text) Assessment: 82F POD#3 s/p BKA Pain control regular diet knee imobilizer trapeeze physical therapy D/W Dr. Mohamud Trujillo PGY2
[2018-02-12] MEDS: Albuterol-Ipratrop 3 mg / 0.5 (3 ml) UD INH SCH (01:22)
[2018-02-12] MEDS: cefOXitin 1 GM in Sodium Chloride 0.9% 100 ML IVPB SCH ×3 (05:14→21:44)
--- NOTE | 2018-02-12 07:36 | CP.PCM.PN ---
Subjective - Date & Time of Evaluation Date of Evaluation: 02/12/18 Time of Evaluation: 07:33 - Subjective Subjective: SURGERY NOTE FOR DR. THOMAS 82F seen and examined at bedside early in the AM. Patient rested well overnight , no acute events. She states pain is controlled. Complains of difficulty moving her bowels. Objective - Vital Signs/Intake and Output Vital Signs (last 24 hours): Temp Pulse Resp BP Pulse Ox 98.2 F 98 H 20 102/61 99 02/12/18 00:00 02/12/18 00:00 02/12/18 00:00 02/12/18 00:00 02/12/18 00:00 Intake and Output: 02/12/18 02/12/18 06:59 18:59 Intake Total 340 Balance 340 - Medications Medications: Current Medications Albuterol (Ventolin Hfa 90 Mcg/Actuation (8 G)) 2 puff IH BID [facility] Last Admin: 02/11/18 09:56 Dose: Not Given Ascorbic Acid (Vitamin C 500 Mg Tab) 1,000 mg PO DAILY [facility] Last Admin: 02/11/18 09:32 Dose: 1,000 mg Aspirin (Ecotrin) 81 mg PO DAILY [facility] Last Admin: 02/11/18 09:20 Dose: 81 mg Docusate Sodium (Colace) 100 mg PO TID [facility] Last Admin: 02/11/18 17:44 Dose: 100 mg Enalapril Maleate (Vasotec) 20 mg PO DAILY [facility] Last Admin: 02/11/18 09:18 Dose: 20 mg Hydromorphone HCl (Dilaudid) 1 mg IVP Q4H PRN PRN Reason: Pain, severe (8-10) Last Admin: 02/11/18 17:45 Dose: 1 mg Cefoxitin Sodium 1 gm/ Sodium (Chloride) 100 mls @ 200 mls/hr IVPB Q8H [facility] PRN Reason: Protocol Last Admin: 02/12/18 05:14 Dose: 200 mls/hr Multivitamins (Hexavitamin) 1 tab PO DAILY [facility] Last Admin: 02/11/18 09:19 Dose: 1 tab Niacin (Niacin) 250 mg PO HS [facility] Last Admin: 02/11/18 21:16 Dose: 250 mg Buklw-9-Cqwl Ethyl Esters (Lovaza) 1 gm PO DAILY [facility] Last Admin: 02/11/18 09:40 Dose: 1 gm Pregabalin (Lyrica) 75 mg PO DAILY [facility] Last Admin: 02/11/18 09:20 Dose: 75 mg Saccharomyces Boulardii (Florastor) 250 mg PO BID [facility] Last Admin: 02/11/18 17:44 Dose: 250 mg Fluticasone/Salmeterol (Advair Diskus 500/50) 1 puff INH RQ12 [facility] Last Admin: 02/11/18 19:42 Dose: 1 puff Tramadol HCl (Ultram) 25 mg PO TID [facility] Last Admin: 02/11/18 18:00 Dose: Not Given Zinc Sulfate (Zinc Sulfate 220 Mg Cap) 220 mg PO DAILY [facility] Last Admin: 02/11/18 09:19 Dose: 220 mg - Labs Labs: 02/10/18 06:07 02/09/18 06:53 PT 13.5 SECONDS (9.7-12.2) H 02/06/18 23:50 INR 1.2 02/06/18 23:50 APTT 34 SECONDS (21-34) 02/06/18 23:50 - Constitutional Appears: Non-toxic, No Acute Distress - Respiratory Exam Respiratory Exam: Clear to Ausculation Bilateral, NORMAL BREATHING PATTERN - Cardiovascular Exam Cardiovascular Exam: REGULAR RHYTHM, +S1, +S2 - GI/Abdominal Exam GI & Abdominal Exam: Soft. absent: Distended, Firm, Guarding, Rigid, Tenderness , Rebound - Extremities Exam Extremities Exam: absent: Pedal Edema, Tenderness Additional comments: BKA dressing clean dry intact - Neurological Exam Neurological Exam: Alert, Awake - Skin Skin Exam: Dry, Intact, Normal Color, Warm Assessment and Plan - Assessment and Plan (Free Text) Assessment: 82F s/p BKA POD4 Plan: continue PT Trapeze attached to bed Pain control Plan for rehab Further recs discuss with Dr. Mohamud Vasquez, PGY2
[2018-02-12] MEDS: Multiple Vitamins Tab PO SCH (10:00)
[2018-02-12] MEDS: Omega-3-Acid Ethyl Esters 1 GM Cap PO SCH (10:00)
[2018-02-12] MEDS: Saccharomyces Boulardi 250 mg Cap PO SCH ×2 (10:01→17:54)
[2018-02-12] MEDS: HYDROmorphone 0.5 mg/0.5 ml ISec IVP PRN ×3 (10:01→22:52)
[2018-02-12] MEDS: Tramadol 25 mg PO SCH ×3 (10:02→17:53)
[2018-02-12] MEDS: Albuterol HFA 90 mcg/actuation (8 g) IH SCH ×2 (10:05→19:43)
[2018-02-12] MEDS: Fluticasone-Salmeterol 500-50mcg Diskus INH SCH ×2 (11:04→19:42)
[2018-02-12 17:18] LABS: BASO % 0.2 % (0.0-2.0); EOS # 0.1 K/uL (0.0-0.7); HEMOGLOBIN 9.3 g/dL (11.0-16.0); LYMPH # 1.8 K/uL (1.0-4.3); LYMPH % 11.8 % (20.0-40.0); MEAN CELL VOLUME 91.6 fL (81.0-99.0); MEAN CORPUSCULAR HEMOGLOBIN 29.2 pg (27.0-31.0); MEAN CORPUSCULAR HGB CONC 31.9 g/dL (33.0-37.0); MEAN PLATELET VOLUME 8.7 fL (7.2-11.7); MONO # 0.9 K/uL (0.0-0.8); MONO % 5.7 % (0.0-10.0); NEUT # 12.3 K/uL (1.8-7.0); NEUT % 81.3 % (50.0-75.0); RBC 3.18 Mil/uL (3.80-5.20); RED CELL DISTRIBUTION WIDTH 17.6 % (11.5-14.5); WHITE BLOOD COUNT 15.1 K/uL (4.8-10.8)
[2018-02-12 17:34] LABS: BLOOD UREA NITROGEN 16 mg/dL (7-17); CALCIUM 8.4 mg/dl (8.6-10.4); GFR AFRICAN-AMERICAN > 60; GFR NON-AFRICAN AMERICAN > 60
[2018-02-12 20:30] VITALS: RESP 20
[2018-02-12] MEDS ORDERED: Potassium Chloride 20 mEq ER Tab PO STA (23:58)
[2018-02-13] MEDS: cefOXitin 1 GM in Sodium Chloride 0.9% 100 ML IVPB SCH ×3 (05:05→21:41)
[2018-02-13] MEDS: Fluticasone-Salmeterol 500-50mcg Diskus INH SCH ×2 (07:25→19:35)
[2018-02-13] MEDS ORDERED: Potassium Chloride 20 mEq ER Tab PO SCH (08:00)
--- NOTE | 2018-02-13 08:28 | CP.PCM.PN ---
Subjective - Date & Time of Evaluation Date of Evaluation: 02/13/18 Time of Evaluation: 08:26 - Subjective Subjective: SURGERY NOTE FOR DR. THOMAS 82F seen and examined at bedside. No acute events overnight. Patient denies pain , states she is comfortable. She has been accepted to go to rehab, [facility] on thursday. Objective - Vital Signs/Intake and Output Vital Signs (last 24 hours): Temp Pulse Resp BP Pulse Ox 98.2 F 108 H 20 120/64 97 02/13/18 07:34 02/13/18 07:34 02/13/18 07:34 02/13/18 07:34 02/13/18 07:34 Intake and Output: 02/13/18 02/13/18 06:59 18:59 Intake Total 900 Balance 900 - Medications Medications: Current Medications Albuterol (Ventolin Hfa 90 Mcg/Actuation (8 G)) 2 puff IH BID [facility] Last Admin: 02/12/18 19:43 Dose: Not Given Ascorbic Acid (Vitamin C 500 Mg Tab) 1,000 mg PO DAILY [facility] Last Admin: 02/12/18 10:01 Dose: 1,000 mg Aspirin (Ecotrin) 81 mg PO DAILY [facility] Last Admin: 02/12/18 10:01 Dose: 81 mg Docusate Sodium (Colace) 100 mg PO TID [facility] Last Admin: 02/12/18 17:52 Dose: Not Given Enalapril Maleate (Vasotec) 20 mg PO DAILY [facility] Last Admin: 02/12/18 10:02 Dose: 20 mg Hydromorphone HCl (Dilaudid) 1 mg IVP Q4H PRN PRN Reason: Pain, severe (8-10) Last Admin: 02/12/18 22:52 Dose: 1 mg Cefoxitin Sodium 1 gm/ Sodium (Chloride) 100 mls @ 200 mls/hr IVPB Q8H [facility] PRN Reason: Protocol Last Admin: 02/13/18 05:05 Dose: 200 mls/hr Ketorolac Tromethamine (Toradol) 15 mg IVP Q6 [facility] Multivitamins (Hexavitamin) 1 tab PO DAILY [facility] Last Admin: 02/12/18 10:00 Dose: 1 tab Niacin (Niacin) 250 mg PO HS [facility] Last Admin: 02/12/18 21:55 Dose: 250 mg Hlpad-1-Focs Ethyl Esters (Lovaza) 1 gm PO DAILY [facility] Last Admin: 02/12/18 10:00 Dose: 1 gm Pantoprazole Sodium (Protonix Inj) 40 mg IVP DAILY [facility] Pregabalin (Lyrica) 75 mg PO DAILY [facility] Last Admin: 02/12/18 10:00 Dose: 75 mg Saccharomyces Boulardii (Florastor) 250 mg PO BID [facility] Last Admin: 02/12/18 17:54 Dose: 250 mg Fluticasone/Salmeterol (Advair Diskus 500/50) 1 puff INH RQ12 [facility] Last Admin: 02/13/18 07:25 Dose: 1 puff Tramadol HCl (Ultram) 25 mg PO TID [facility] Last Admin: 02/12/18 17:53 Dose: Not Given Zinc Sulfate (Zinc Sulfate 220 Mg Cap) 220 mg PO DAILY [facility] Last Admin: 02/12/18 10:00 Dose: 220 mg - Labs Labs: 02/12/18 17:15 02/12/18 17:15 PT 13.5 SECONDS (9.7-12.2) H 02/06/18 23:50 INR 1.2 02/06/18 23:50 APTT 34 SECONDS (21-34) 02/06/18 23:50 - Constitutional Appears: Non-toxic, No Acute Distress - Respiratory Exam Respiratory Exam: Clear to Ausculation Bilateral, NORMAL BREATHING PATTERN - Cardiovascular Exam Cardiovascular Exam: REGULAR RHYTHM, +S1, +S2 - GI/Abdominal Exam GI & Abdominal Exam: Soft. absent: Distended, Firm, Guarding, Rigid, Tenderness , Rebound - Extremities Exam Additional comments: site of BKA is clean dry intact - Neurological Exam Neurological Exam: Alert, Awake - Skin Skin Exam: Dry, Intact, Normal Color, Warm Assessment and Plan - Assessment and Plan (Free Text) Assessment: 82F s/p BKA POD5 Plan: - PT - [facility] Further recs discuss with Dr. Mohamud Vasquez, PGY2
[2018-02-13 09:12] LABS: BASO # 0.1 K/uL (0.0-0.2); BASO % 0.3 % (0.0-2.0); EOS # 0.2 K/uL (0.0-0.7); EOS % 1.2 % (0.0-4.0); HEMOGLOBIN 9.4 g/dL (11.0-16.0); LYMPH # 2.5 K/uL (1.0-4.3); MEAN CELL VOLUME 91.5 fL (81.0-99.0); MEAN CORPUSCULAR HEMOGLOBIN 29.7 pg (27.0-31.0); MEAN CORPUSCULAR HGB CONC 32.4 g/dL (33.0-37.0); MEAN PLATELET VOLUME 9.1 fL (7.2-11.7); MONO # 0.8 K/uL (0.0-0.8); NEUT # 13.2 K/uL (1.8-7.0); NEUT % 78.5 % (50.0-75.0); NRBC % 0.1 % (0.0-2.0); RBC 3.16 Mil/uL (3.80-5.20); RED CELL DISTRIBUTION WIDTH 17.7 % (11.5-14.5); WHITE BLOOD COUNT 16.8 K/uL (4.8-10.8)
[2018-02-13 09:31] LABS: ALBUMIN 2.7 g/dL (3.5-5.0); ALT/SGPT 31 U/L (9-52); AST/SGOT 30 U/L (14-36); BLOOD UREA NITROGEN 16 mg/dL (7-17); CALCIUM 8.3 mg/dl (8.6-10.4); GFR AFRICAN-AMERICAN > 60; GFR NON-AFRICAN AMERICAN > 60
[2018-02-13] MEDS ORDERED: Potassium Chloride 20 mEq/15 ml LIQ UD PO SCH ×2 (10:00)
[2018-02-13] MEDS: Albuterol HFA 90 mcg/actuation (8 g) IH SCH ×2 (10:05→18:10)
[2018-02-13] MEDS: Multiple Vitamins Tab PO SCH (11:03)
[2018-02-13] MEDS: Saccharomyces Boulardi 250 mg Cap PO SCH ×2 (11:03→17:57)
[2018-02-13] MEDS: Omega-3-Acid Ethyl Esters 1 GM Cap PO SCH (11:03)
[2018-02-13] MEDS: Tramadol 25 mg PO SCH ×3 (11:05→17:59)
[2018-02-13] MEDS: HYDROmorphone 0.5 mg/0.5 ml ISec IVP PRN ×3 (11:29→21:04)
[2018-02-14] MEDS: cefOXitin 1 GM in Sodium Chloride 0.9% 100 ML IVPB SCH ×3 (05:05→21:36)
--- NOTE | 2018-02-14 06:27 | CP.PCM.PN ---
Subjective - Date & Time of Evaluation Date of Evaluation: 02/14/18 Time of Evaluation: 06:25 - Subjective Subjective: SURGERY PROGRESS NOTE 82F seen and examined at bedside. Patient resting comfortably, no complaints. No acute events overnight. Objective - Vital Signs/Intake and Output Vital Signs (last 24 hours): Temp Pulse Resp BP Pulse Ox 98.5 F 97 H 20 124/57 L 97 02/14/18 00:00 02/14/18 00:00 02/14/18 00:00 02/14/18 00:00 02/14/18 00:00 Intake and Output: 02/13/18 02/14/18 18:59 06:59 Intake Total 670 Balance 670 - Medications Medications: Current Medications Albuterol (Ventolin Hfa 90 Mcg/Actuation (8 G)) 2 puff IH BID [facility] Last Admin: 02/13/18 18:10 Dose: Not Given Ascorbic Acid (Vitamin C 500 Mg Tab) 1,000 mg PO DAILY [facility] Last Admin: 02/13/18 11:22 Dose: 1,000 mg Aspirin (Ecotrin) 81 mg PO DAILY [facility] Last Admin: 02/13/18 11:03 Dose: 81 mg Docusate Sodium (Colace) 100 mg PO TID [facility] Last Admin: 02/13/18 17:57 Dose: Not Given Enalapril Maleate (Vasotec) 20 mg PO DAILY [facility] Last Admin: 02/13/18 11:04 Dose: Not Given Hydromorphone HCl (Dilaudid) 1 mg IVP Q4H PRN PRN Reason: Pain, severe (8-10) Last Admin: 02/13/18 21:04 Dose: 1 mg Cefoxitin Sodium 1 gm/ Sodium (Chloride) 100 mls @ 200 mls/hr IVPB Q8H DENNIS PRN Reason: Protocol Last Admin: 02/14/18 05:05 Dose: 200 mls/hr Ketorolac Tromethamine (Toradol) 15 mg IVP Q6 [facility] Last Admin: 02/14/18 05:07 Dose: 15 mg Multivitamins (Hexavitamin) 1 tab PO DAILY [facility] Last Admin: 02/13/18 11:03 Dose: 1 tab Niacin (Niacin) 250 mg PO HS [facility] Last Admin: 02/13/18 22:56 Dose: 250 mg [id number] Ethyl Esters (Lovaza) 1 gm PO DAILY [facility] Last Admin: 02/13/18 11:03 Dose: 1 gm Pantoprazole Sodium (Protonix Ec Tab) 40 mg PO DAILY [facility] Pregabalin (Lyrica) 75 mg PO DAILY [facility] Last Admin: 02/13/18 11:04 Dose: 75 mg Saccharomyces Boulardii (Florastor) 250 mg PO BID [facility] Last Admin: 02/13/18 17:57 Dose: 250 mg Fluticasone/Salmeterol (Advair Diskus 500/50) 1 puff INH RQ12 [facility] Last Admin: 02/13/18 19:35 Dose: 1 puff Tramadol HCl (Ultram) 25 mg PO TID [facility] Last Admin: 02/13/18 17:59 Dose: 25 mg Zinc Sulfate (Zinc Sulfate 220 Mg Cap) 220 mg PO DAILY [facility] Last Admin: 02/13/18 11:03 Dose: 220 mg - Labs Labs: 02/13/18 08:58 02/13/18 08:58 PT 13.5 SECONDS (9.7-12.2) H 02/06/18 23:50 INR 1.2 02/06/18 23:50 APTT 34 SECONDS (21-34) 02/06/18 23:50 - Constitutional Appears: Non-toxic, No Acute Distress - Respiratory Exam Respiratory Exam: Clear to Ausculation Bilateral, NORMAL BREATHING PATTERN - Cardiovascular Exam Cardiovascular Exam: REGULAR RHYTHM, +S1, +S2 - GI/Abdominal Exam GI & Abdominal Exam: Soft. absent: Distended, Firm, Guarding, Rigid, Tenderness - Extremities Exam Additional comments: Dressing of site of right BKA is CDI Assessment and Plan - Assessment and Plan (Free Text) Assessment: 82F s/p right BKA POD6 Plan: PT DC to [facility] on Thursday Further recs discuss with Dr. Parul Vasquez, PGY2
[2018-02-14] MEDS: Albuterol HFA 90 mcg/actuation (8 g) IH SCH ×2 (07:32→19:21)
[2018-02-14] MEDS: Fluticasone-Salmeterol 500-50mcg Diskus INH SCH ×2 (07:32→19:20)
[2018-02-14 07:50] LABS: BASO # 0.1 K/uL (0.0-0.2); BASO % 0.4 % (0.0-2.0); EOS # 0.2 K/uL (0.0-0.7); EOS % 1.9 % (0.0-4.0); HEMOGLOBIN 8.8 g/dL (11.0-16.0); LYMPH # 2.9 K/uL (1.0-4.3); LYMPH % 22.2 % (20.0-40.0); MEAN CELL VOLUME 92.1 fL (81.0-99.0); MEAN CORPUSCULAR HEMOGLOBIN 30.3 pg (27.0-31.0); MEAN CORPUSCULAR HGB CONC 32.9 g/dL (33.0-37.0); MEAN PLATELET VOLUME 9.2 fL (7.2-11.7); MONO # 0.8 K/uL (0.0-0.8); MONO % 5.8 % (0.0-10.0); NEUT % 69.7 % (50.0-75.0); RBC 2.91 Mil/uL (3.80-5.20); RED CELL DISTRIBUTION WIDTH 17.5 % (11.5-14.5)
[2018-02-14 08:05] LABS: ALBUMIN 2.6 g/dL (3.5-5.0); ALT/SGPT 30 U/L (9-52); AST/SGOT 28 U/L (14-36); BLOOD UREA NITROGEN 19 mg/dL (7-17); CALCIUM 8.3 mg/dl (8.6-10.4); GFR AFRICAN-AMERICAN > 60; GFR NON-AFRICAN AMERICAN > 60
[2018-02-14] MEDS: Tramadol 25 mg PO SCH ×3 (10:32→18:00)
[2018-02-14] MEDS: Multiple Vitamins Tab PO SCH (10:34)
[2018-02-14] MEDS: Pantoprazole 40 mg EC Tab PO SCH (10:34)
[2018-02-14] MEDS: Omega-3-Acid Ethyl Esters 1 GM Cap PO SCH (10:36)
[2018-02-14] MEDS: Saccharomyces Boulardi 250 mg Cap PO SCH ×2 (10:37→17:58)
[2018-02-14] MEDS: HYDROmorphone 0.5 mg/0.5 ml ISec IVP PRN (20:44)
[2018-02-15] MEDS: cefOXitin 1 GM in Sodium Chloride 0.9% 100 ML IVPB SCH ×2 (05:02→13:32)
[2018-02-15 08:40] LABS: BASO % 0.3 % (0.0-2.0); EOS # 0.3 K/uL (0.0-0.7); EOS % 2.2 % (0.0-4.0); HEMOGLOBIN 9.3 g/dL (11.0-16.0); LYMPH # 1.9 K/uL (1.0-4.3); MEAN CELL VOLUME 92.2 fL (81.0-99.0); MEAN CORPUSCULAR HEMOGLOBIN 29.7 pg (27.0-31.0); MEAN CORPUSCULAR HGB CONC 32.2 g/dL (33.0-37.0); MEAN PLATELET VOLUME 9.1 fL (7.2-11.7); MONO # 0.7 K/uL (0.0-0.8); MONO % 5.8 % (0.0-10.0); NEUT # 9.5 K/uL (1.8-7.0); NEUT % 76.7 % (50.0-75.0); RBC 3.14 Mil/uL (3.80-5.20); RED CELL DISTRIBUTION WIDTH 17.5 % (11.5-14.5); WHITE BLOOD COUNT 12.3 K/uL (4.8-10.8)
[2018-02-15 08:58] LABS: ALBUMIN 2.7 g/dL (3.5-5.0); ALT/SGPT 34 U/L (9-52); AST/SGOT 37 U/L (14-36); BLOOD UREA NITROGEN 19 mg/dL (7-17); CALCIUM 8.3 mg/dl (8.6-10.4); GFR AFRICAN-AMERICAN > 60; GFR NON-AFRICAN AMERICAN > 60
[2018-02-15] MEDS: Multiple Vitamins Tab PO SCH (09:26)
[2018-02-15] MEDS: Saccharomyces Boulardi 250 mg Cap PO SCH (09:27)
[2018-02-15] MEDS: Tramadol 25 mg PO SCH ×2 (09:27→13:31)
[2018-02-15] MEDS: Pantoprazole 40 mg EC Tab PO SCH (09:27)
[2018-02-15] MEDS: Fluticasone-Salmeterol 500-50mcg Diskus INH SCH (09:38)
[2018-02-15] MEDS: Albuterol HFA 90 mcg/actuation (8 g) IH SCH (09:40)
[2018-02-15] MEDS: Omega-3-Acid Ethyl Esters 1 GM Cap PO SCH (10:59)
--- NOTE | 2018-02-15 14:16 | CP.PCM.DIS ---
Provider - Provider Date of Admission: 02/07/18 00:19 Attending physician: Erasmo Mallory Jr, MD Time Spent in preparation of Discharge (in minutes): 45 Hospital Course - Lab Results Lab Results: Most Recent Lab Values WBC 12.3 K/uL (4.8-10.8) H 02/15/18 08:31 RBC 3.14 Mil/uL (3.80-5.20) L 02/15/18 08:31 Hgb 9.3 g/dL (11.0-16.0) L 02/15/18 08:31 Hct 29.0 % (34.0-47.0) L 02/15/18 08:31 MCV 92.2 fL (81.0-99.0) 02/15/18 08:31 MCH 29.7 pg (27.0-31.0) 02/15/18 08:31 MCHC 32.2 g/dL (33.0-37.0) L 02/15/18 08:31 RDW 17.5 % (11.5-14.5) H 02/15/18 08:31 Plt Count 273 K/uL (130-400) 02/15/18 08:31 MPV 9.1 fL (7.2-11.7) 02/15/18 08:31 Neut % (Auto) 76.7 % (50.0-75.0) H 02/15/18 08:31 Lymph % (Auto) 15.0 % (20.0-40.0) L 02/15/18 08:31 [place] % (Auto) 5.8 % (0.0-10.0) 02/15/18 08:31 Eos % (Auto) 2.2 % (0.0-4.0) 02/15/18 08:31 Baso % (Auto) 0.3 % (0.0-2.0) 02/15/18 08:31 Neut # (Auto) 9.5 K/uL (1.8-7.0) H 02/15/18 08:31 Lymph # (Auto) 1.9 K/uL (1.0-4.3) 02/15/18 08:31 [place] # (Auto) 0.7 K/uL (0.0-0.8) 06/18/18 08:31 Eos # (Auto) 0.3 K/uL (0.0-0.7) 02/15/18 08:31 Baso # (Auto) 0.0 K/uL (0.0-0.2) 02/15/18 08:31 PT 13.5 SECONDS (9.7-12.2) H 02/06/18 23:50 INR 1.2 02/06/18 23:50 APTT 34 SECONDS (21-34) 02/06/18 23:50 Sodium 147 mmol/L (132-148) 02/15/18 08:31 Potassium 4.2 mmol/L (3.6-5.2) 02/15/18 08:31 Chloride 109 mmol/L (98-107) H 02/15/18 08:31 Carbon Dioxide 29 mmol/L (22-30) 02/15/18 08:31 Anion Gap 13 (10-20) 02/15/18 08:31 BUN 19 mg/dL (7-17) H 02/15/18 08:31 Creatinine 0.4 mg/dL (0.7-1.2) L 02/15/18 08:31 Est GFR ( Amer) > 60 02/15/18 08:31 Est GFR (Non-Af Amer) > 60 02/15/18 08:31 Random Glucose 101 mg/dL (65-105) 02/15/18 08:31 Calcium 8.3 mg/dl (8.6-10.4) L 02/15/18 08:31 Total Bilirubin 0.4 mg/dL (0.2-1.3) 02/15/18 08:31 AST 37 U/L (14-36) H D 02/15/18 08:31 ALT 34 U/L (9-52) 02/15/18 08:31 Alkaline Phosphatase 69 U/L (38-126) 02/15/18 08:31 Total Protein 5.3 g/dL (6.3-8.3) L 02/15/18 08:31 Albumin 2.7 g/dL (3.5-5.0) L 02/15/18 08:31 Globulin 2.6 gm/dL (2.2-3.9) 02/15/18 08:31 Albumin/Globulin Ratio 1.0 (1.0-2.1) 02/15/18 08:31 Blood Type O POSITIVE 02/06/18 23:50 Antibody Screen Positive 02/06/18 23:50 Antibody Identification Anti Jka 02/06/18 23:50 MALISSA, Poly Interpret Negative (NEGATIVE) 02/06/18 23:50 - Hospital Course Hospital Course: Pt is an 82F well known to the vascular service with PMHx significant for PVD, HTN, TIA x3, arthritis, osteoporosis & Raynaud's who presents to with complaints of cold R foot & pain in the RLE. Pt has had a R pop-PT bypass with cryovein in Oct 2017 & angio with thrombolysis of occluded bypass in November 2017. During that admission, pt's graft in the RLE was found to be exposed & she was following up with Dr. Mallory for wound care. Pt was scheduled for debridement on 02/08. However, her son states that her R foot has been warm to touch and when he noticed the change in the temp of the R foot he became concerned and brought her to the ER. She states she always has pain in her RLE but denies other complaints at this time. Admits to loss of appetite. Denies N/V, F/C, chest pain or SOB. Pt underwent surgery for BKA. Tolerated it well. Pt had leukocytosis and tx w ABX. Stayed at hospital for pain control, physical therapy and wound care. Pt is aproved for shelter. Discharge Exam - Head Exam Head Exam: ATRAUMATIC, NORMOCEPHALIC - Eye Exam Eye Exam: EOMI, Normal appearance, PERRL Pupil Exam: NORMAL ACCOMODATION, PERRL - Respiratory Exam Respiratory Exam: UNREMARKABLE - Cardiovascular Exam Cardiovascular Exam: REGULAR RHYTHM - GI/Abdominal Exam GI & Abdominal Exam: Normal Bowel Sounds, Unremarkable - Extremities Exam Additional comments: R BKA stump dressing C/D/I. Immobilizer in place - Neurological Exam Neurological exam: Alert, CN II-XII Intact, Normal Gait, Oriented x3, Reflexes Normal - Psychiatric Exam Psychiatric exam: Normal Affect, Normal Mood - Skin Skin Exam: Dry, Intact, Normal Color, Warm Discharge Plan - Follow Up Plan Condition: GUARDED Disposition: NURSING FACILITY MEDICAID CERT Instructions: Peripheral Artery Disease and Claudication, Peripheral Vascular ( Arterial) Disease (DC) Additional Instructions: discharge to senior living. Pain med as needed. Dressing change as needed: with 4x4 gauze and kerlix. Cover with stockinette. Trapeze to get upper body exercise and Physical therapy. Follow up at Dr. Mallory's office in 1-2 weeks to get truong removed. Referrals: Erasmo Mallory Jr., MD [Staff Provider] -
[2018-02-15 16:55] VITALS: BP 117/72; PULSE 100; TEMP 98.9; O2SAT 95
== END 2018-02-15 16:50 | DRG 241 ==
LOC: C.ER 22:34 → C.3T 02-07 00:19
PROVIDERS: ADMIT Surgery Vascular Surgery; ATTEND Surgery Vascular Surgery
PROC: 0Y6H0Z1 Detachment at Right Lower Leg, High, Open Approach (ICD-10-PCS; principal; 2018-02-08 07:45)
DX: I70.268 Atherosclerosis of native arteries of extremities with gangrene, other extremity (principal); D72.829 Elevated white blood cell count, unspecified; I73.01 Raynaud's syndrome with gangrene; I10 Essential (primary) hypertension; I25.10 Atherosclerotic heart disease of native coronary artery without angina pectoris; M81.0 Age-related osteoporosis without current pathological fracture; J44.9 Chronic obstructive pulmonary disease, unspecified; Z86.73 Personal history of transient ischemic attack (TIA), and cerebral infarction without residual deficits; Z66 Do not resuscitate